=== PATIENT | male | born 1970 | race Caucasian/White ===

== ENCOUNTER 2017-10-24 22:00 | Emergency (ER) | payer OTHER, MEDICAID, SELFPAY ==
[2017-10-24 22:10] VITALS: BP 134/98; PULSE 100; RESP 18; TEMP 37.3; O2SAT 100; BMI 38.3
--- NOTE | 2017-10-24 22:24 | ED_ITS ---
HPI - Back Pain/Injury General Chief Complaint: Back Pain/Injury Stated Complaint: RT SIDED RIB PAIN FOR A WEEK Time Seen by Provider: 10/24/17 22:23 Source: patient Mode of arrival: ambulatory Limitations: no limitations History of Present Illness HPI Narrative: Patient is a 47-year-old male presents with right thoracic pain for about 1 week. He says he was sitting in the recliner trying to get up when it started. No fall or injury. It hurts intermittently but mostly when he moves. Not currently hurting now. Last night it was quite bad. He has no all right upper quadrant pain or shoulder pain. He is not taking and any medicine for it. Related Data Home Medications Medication Instructions Recorded Confirmed linagliptin [Tradjenta] 5 mg PO #0 01/29/17 glimepiride [Amaryl] 1 tab PO QDAY #0 06/07/17 Previous Rx's Medication Instructions Recorded Glucose: Home Monitoring Kit 0 kit #1 ea 12/15/15 [TRUE METRIX TEST STR] 1 str Q DAY #100 str 03/17/16 [TRUE METRIX TEST STR] 1 str QDAY #100 01/29/17 metformin 1,000 mg PO BIDCC #60 tab 01/29/17 hydrocodone 5 mg-acetaminophen 325 1 tab PO BIDP PRN #60 tab 10/20/17 mg tablet diazepam [Valium] 5 mg PO Q12HR PRN #10 tab 10/24/17 Allergies Allergy/AdvReac Type Severity Reaction Status Date / Time No Known Drug Allergies Allergy Verified 10/24/17 22:34 Review of Systems Constitutional Denies chills, Denies fever(s), Denies lethargy and Denies weakness Cardiovascular Denies chest pain, Denies irregular heart rhythm, Denies lightheadedness, Denies palpitations, Denies dyspnea, Denies dyspnea on exertion and Denies orthopnea Respiratory Denies cough, Denies dyspnea, Denies dyspnea on exertion and Denies wheezing Musculoskeletal Reports system reviewed and no additional complaints, except as docu and Reports as per HPI Neurologic Denies weakness Endocrine Denies palpitations Allergic/Immunologic Denies wheezing PFSH Family History Brother Age: 49 Diabetes mellitus Father Essential hypertension Social History Smoking Status: Never smoker Exam Initial Vital Signs Initial Vital Signs: Vital Signs Temperature 99.2 F 10/24/17 22:10 Pulse Rate 100 H 10/24/17 22:10 Respiratory Rate 18 10/24/17 22:10 Blood Pressure 134/98 H 10/24/17 22:10 Pulse Oximetry 100 10/24/17 22:10 GENERAL: Well-appearing, well-nourished and in no acute distress. CARDIOVASCULAR: peripheral pulses in tact, cap refill <2 sec RESPIRATORY: No respiratory distress, speaks in full sentences without difficulty ABDOMEN: Soft, nontender, no guarding or rebound no right upper quadrant pain, negative Boone sign BACK: Right thoracic pain at about she 6 in 7 muscle spasm is felt over the scapular area. Pain is reproducible with palpation. Definitely worse with movement. EXTREMITIES: Normal range of motion, no clubbing or edema. Neurovascularly intact NEUROLOGICAL: Cranial nerves II through XII grossly intact. Normal gait and speech. SKIN: Warm, dry, no petechiae, no rashes or lesions. Course Orders Ordered: Discontinued Medications Diazepam (Valium) 5 mg PO NOW ONE Stop: 10/24/17 22:33 Last Admin: 10/24/17 22:43 Dose: 5 mg Ketorolac Tromethamine (Toradol) 60 mg IM NOW ONE Stop: 10/24/17 22:33 Last Admin: 10/24/17 22:43 Dose: 60 mg Vital Signs - 8 hr 10/24/17 22:10 10/24/17 22:50 10/24/17 23:05 Temperature 99.2 F 99.2 F Pulse Rate 100 H 100 H 107 H Respiratory Rate 18 18 20 Blood Pressure 134/98 H 134/98 H 122/88 H Pulse Oximetry 100 100 93 Discharge Plan Departure Patient Disposition: Home, Self-Care Clinical Impression: Acute right-sided thoracic back pain Discharge Date/Time: 10/24/17 23:05 Interventions: ED Discharge Assessment Last Done: 10/24/17 23:05 Instructions: DI for Thoracic Back Pain Activity Restrictions/Additional Instructions: *You have been diagnosed with thoracic back pain *What to do: Heating pad, 30 min at a time, increase activity as tolerated *Continue to take medications as directed -Valium every 12 hr if needed for severe muscle spasm -ibuprofen 600 mg every 6-8 hours if needed for pain *Follow up with your primary care provider in 2-3 days [and follow up with ortho , urology etc] *Return to ER if you should have [such as] [or] any new, worsening or concerning symptoms Prescriptions: New diazepam [Valium] 5 mg tablet 5 mg PO Q12HR PRN (Reason: muscle spasm) Qty: 10 RF: 0 No Action Glucose: Home Monitoring Kit Qty: 1 RF: 0 [TRUE METRIX TEST STR] 1 str Q DAY Qty: 100 RF: 2 linagliptin [Tradjenta] 5 MG tablet 5 mg PO Qty: 0 RF: 0 metformin 1,000 MG tablet 1,000 mg PO BIDCC Qty: 60 RF: 11 [TRUE METRIX TEST STR] 1 str QDAY Qty: 100 RF: 2 glimepiride [Amaryl] 4 MG tablet 1 tab PO QDAY Qty: 0 RF: 0 hydrocodone-acetaminophen 5-325 mg tablet 1 tab PO BIDP PRN (Reason: pain) Qty: 60 RF: 0 Referrals: Barak Donahue MD [Primary Care Provider] -
[2017-10-24] MEDS: KETOROLAC 60 MG/2 ML VIAL IM (22:43)
[2017-10-24] MEDS: diazePAM 5 MG TABLET PO (22:43)
[2017-10-24 22:50] VITALS: BP 134/98; PULSE 100; RESP 18; TEMP 37.3; O2SAT 100; BMI 38.3
[2017-10-24 23:05] VITALS: BP 122/88; PULSE 107; RESP 20; O2SAT 93
== END 2017-10-24 23:05 | disposition home or self-care (01) ==
PROVIDERS: Emergency Provider Emergency Medicine; Family Provider Family Medicine; PCP Family Medicine
DX: M54.6 Pain in thoracic spine (principal)
CPT/HCPCS: 96372; 99282; 99283; J1885

== ENCOUNTER → 2017-11-08 09:44 | Outpatient (CLI) | payer OTHER, MEDICAID, SELFPAY ==
--- NOTE | 2017-11-08 09:46 | DI.RAD.S_ITS ---
PROCEDURE: XR THORACIC SPINE 3V INDICATIONS: right lower rib pain and thoracic back pain no trauma TECHNIQUE: 2 views of the thoracic spine were acquired. COMPARISON: [facility], CT, ABDOMEN/PELVIS WITH CONTRAST, 03/16/2016, 7:02. [facility], RG, XR CXR 2 VIEW, 12/17/2003, 10:49. FINDINGS: Bones: No fractures or dislocations but there is a slight degree of convex leftward scoliosis centered at T10-T11. The 12th rib from prior CT scanning is rudimentary but present. No suspicious bony lesions. 12 pairs of ribs are noted, and appear intact where visualized. Soft tissues: No paravertebral stripe thickening. IMPRESSION: Source of chest pain is not identified. Note is made of a slight degree of convex leftward scoliosis centered at the lower third of the thoracic spine. No compression fracture seen. Minimal degenerative disc disease. Dictated by: Rufino Mondragon M.D. on 11/08/2017 at 10:26 Approved by: Rufino Mondragon M.D. on 11/08/2017 at 10:30
--- NOTE | 2017-11-08 09:46 | DI.RAD.S_ITS ---
PROCEDURE: XR RIBS RT MIN 3V W CXR 1V INDICATIONS: right lower rib pain no trauma TECHNIQUE: 3 views of the right ribs were acquired, along with a single view chest. COMPARISON: [facility], CT, ABDOMEN/PELVIS WITH CONTRAST, 03/16/2016, 7:02. [facility], CR, XR THORACIC SPINE 3V, 11/08/2017, 9:24. FINDINGS: Surgical changes and devices: None. Bones and chest wall: No fractures or dislocations. No suspicious bony lesions. Overlying soft tissues appear unremarkable. Lungs and pleura: No pleural effusions or pneumothorax. Lungs appear clear. Mediastinum: Mediastinal contours appear normal. Heart size is normal. IMPRESSION: No osteolytic or blastic lesion seen involving the ribs. Rudimentary 12th rib, also documented by prior CT scanning. Followup by nuclear medicine bone scan may be warranted depending on clinical status of the patient. Dictated by: Rufino Mondragon M.D. on 11/08/2017 at 10:30 Approved by: Rufino Mondragon M.D. on 11/08/2017 at 10:34
== END ==
PROVIDERS: Family Provider Family Medicine; PCP Family Medicine; Visit Provider Family Medicine
DX: R07.81 Pleurodynia (principal); M54.6 Pain in thoracic spine
CPT/HCPCS: 71101; 72072

== ENCOUNTER → 2017-11-16 08:39 | Outpatient (CLI) | payer OTHER, MEDICAID, SELFPAY ==
--- NOTE | 2017-11-16 08:40 | DI.US.S_ITS ---
PROCEDURE: US ABDOMEN COMPLETE INDICATIONS: PAIN; HISTORY HERNIA REPAIR TECHNIQUE: Real-time scanning was performed of the abdominal and retroperitoneal organs, with image documentation. COMPARISON: [facility], US, ABDOMEN LIMITED, 12/07/2015, 13:41. [facility], CT, ABDOMEN/PELVIS WITH CONTRAST, 01/19/2015, 5:56. FINDINGS: Liver: The liver is mildly enlarged at 20.9 cm in length and demonstrates heterogeneous increased echogenicity when compared to the right kidney. This does result in difficulty evaluating the liver for deep liver lesions. No large liver lesions are evident. Gallbladder: The gallbladder is normal in size without gallbladder wall thickening, pericholecystic fluid, or cholelithiasis. Biliary ducts: Intrahepatic bile ducts are non-dilated. Extrahepatic bile duct caliber measures 6 mm. Normal is 6-7 mm or less in diameter, or 10 mm or less post-cholecystectomy. Pancreas: Visualized portions of the pancreas are sonographically normal. Spleen: Spleen is normal in size and homogeneous in echotexture. Kidneys: Kidneys are normal in size and echotexture. Right kidney measures 11.4 cm long; left kidney measures 12.8 cm long. No hydronephrosis or nephrolithiasis. No solid masses. Aorta: Visualized aorta is normal in caliber at less than 3 cm. Iliacs: Proximal common iliac arteries are normal in caliber at less than 2.5 cm. IVC: Intrahepatic inferior vena cava is patent. Miscellaneous: No free abdominal fluid. IMPRESSION: 1. Hepatomegaly with probable hepatic steatosis. Clinical correlation to exclude other chronic liver disease. 2. No cholelithiasis or evidence of acute cholecystitis. 3. Unremarkable kidneys. Dictated by: Omari Griffin M.D. on 11/16/2017 at 10:48 Approved by: Omari Griffin M.D. on 11/16/2017 at 10:50
== END ==
PROVIDERS: Family Provider Family Medicine; PCP Family Medicine; Visit Provider Family Medicine
DX: R10.31 Right lower quadrant pain (principal); G89.29 Other chronic pain; R16.0 Hepatomegaly, not elsewhere classified
CPT/HCPCS: 76700

== ENCOUNTER → 2018-01-02 11:41 | Outpatient (CLI) | payer OTHER, MEDICAID, SELFPAY ==
--- NOTE | 2018-01-02 | DI.RAD.S_ITS ---
PROCEDURE: XR PELVIS 1-2V INDICATIONS: CHRONIC RIGHT GROIN PAIN TECHNIQUE: Single frontal view(s) of the pelvis acquired. COMPARISON: None. FINDINGS: Bones: No fractures or dislocations. No suspicious bony lesions. Soft tissues: Visualized bowel gas pattern is normal. No suspicious soft tissue calcifications. IMPRESSION: No acute fractures or dislocations. If there is clinical concern for radiographically occult fracture then a noncontrast MRI would be recommended for further evaluation. Dictated by: Javier Peterson M.D. on 01/02/2018 at 13:07 Approved by: Javier Peterson M.D. on 01/02/2018 at 13:08
== END ==
PROVIDERS: Family Provider Family Medicine; PCP Family Medicine; Visit Provider Surgery
DX: R10.2 Pelvic and perineal pain (principal)
CPT/HCPCS: 72170

== ENCOUNTER 2018-03-17 17:53 | Emergency (ER) | payer OTHER, MEDICAID, SELFPAY ==
[2018-03-17 18:01] VITALS: BP 148/111; PULSE 109; RESP 18; TEMP 36.1; O2SAT 96
--- NOTE | 2018-03-17 18:18 | ED.EXTPRO ---
HPI - Extremity Problem General Chief complaint: Extremity Problem,Nontraumatic Stated complaint: Elbow and arm pain both arms Time Seen by Provider: 03/17/18 18:12 Related Data Home Medications Medication Instructions Recorded Confirmed linagliptin [Tradjenta] 5 mg PO #0 01/29/17 01/02/18 glimepiride [Amaryl] 1 tab PO QDAY #0 06/07/17 01/02/18 Previous Rx's Medication Instructions Recorded Glucose: Home Monitoring Kit 0 kit #1 ea 12/15/15 [TRUE METRIX TEST STR] 1 str Q DAY #100 str 03/17/16 [TRUE METRIX TEST STR] See Label Instructions SUBCUT QDAY 02/15/18 #100 strip hydrocodone 7.5 mg-acetaminophen 1 tab PO Q6H PRN #120 tab 03/04/18 325 mg tablet metformin 1,000 mg tablet 1,000 mg PO BIDCC #60 tab 03/06/18 Allergies Allergy/AdvReac Type Severity Reaction Status Date / Time No Known Drug Allergies Allergy Verified 03/17/18 18:04 [facility] Surgical History Hx of hernia repair (Resolved 2005) Social History Smoking Status: Never smoker Exam Initial Vital Signs Initial Vital Signs: Vital Signs Temperature 97.0 F L 03/17/18 18:01 Pulse Rate 109 H 03/17/18 18:01 Respiratory Rate 18 03/17/18 18:01 Blood Pressure 148/111 H 03/17/18 18:01 Pulse Oximetry 96 03/17/18 18:01 Course Orders Ordered: ED Orders 03/17/18 18:18 XR cervical spine 2V or 3V Stat Vital Signs - 8 hr 03/17/18 18:01 Temperature 97.0 F L Pulse Rate 109 H Respiratory Rate 18 Blood Pressure 148/111 H Pulse Oximetry 96 Discharge Plan Departure Clinical Impression: Bilateral elbow joint pain Instructions: DI for Elbow Pain Activity Restrictions/Additional Instructions: Follow-up with your primary care appointment on March 27. Continue home medications as prescribed. return to the emergency department for fevers greater than 100.4, swelling of the elbows, redness, loss of sensation or decreased strength such is dropping objects or inability to pick them up, color changes such as pallor or blueness of the extremity or other new or concerning symptoms. Prescriptions: No Action Glucose: Home Monitoring Kit Qty: 1 RF: 0 [TRUE METRIX TEST STR] 1 str Q DAY Qty: 100 RF: 2 linagliptin [Tradjenta] 5 MG tablet 5 mg PO Qty: 0 RF: 0 glimepiride [Amaryl] 4 MG tablet 1 tab PO QDAY Qty: 0 RF: 0 [TRUE METRIX TEST STR] See Label Instructions SUBCUT QDAY Qty: 100 RF: 2 hydrocodone-acetaminophen 7.5-325 mg tablet 1 tab PO Q6H PRN (Reason: pain) Qty: 120 RF: 0 metformin 1,000 mg tablet 1,000 mg PO BIDCC Qty: 60 RF: 11
--- NOTE | 2018-03-17 18:19 | ED.EXTPRO ---
HPI - Extremity Problem General Chief complaint: Extremity Problem,Nontraumatic Stated complaint: Elbow and arm pain both arms Time Seen by Provider: 03/17/18 18:12 Source: patient and family (mother) Mode of arrival: ambulatory Limitations: no limitations History of Present Illness HPI Narrative: This is a 47-year-old male comes to the emergency department with complaint of bilateral elbow pain. Patient states he had similar symptoms in his right elbow couple months ago and was put on antibiotics which seemed to help. He states this is both elbows, most specifically the elbows although he does have some pain in his neck, he does have some pain sometimes radiates down his arm from the shoulder, and he has tingling in the left hand and sometimes numbness in the right. Patient states he has not had any trauma. He is not do any kind of work or repetitive activity. He has not had any fevers, no skin changes, no redness. is having any weakness. He is not having any issues with his other joints, he does not have any history of autoimmune issues nor does his family. He does have diabetes. Does take narcotics for chronic pain. But not for this specifically. He states his regular medication which is hydrocodone 7.5 has not been very helpful. Movement does seem to sometimes make it worse. Related Data Home Medications Medication Instructions Recorded Confirmed linagliptin [Tradjenta] 5 mg PO #0 01/29/17 01/02/18 glimepiride [Amaryl] 1 tab PO QDAY #0 06/07/17 01/02/18 Previous Rx's Medication Instructions Recorded Glucose: Home Monitoring Kit 0 kit #1 ea 12/15/15 [TRUE METRIX TEST STR] 1 str Q DAY #100 str 03/17/16 [TRUE METRIX TEST STR] See Label Instructions SUBCUT QDAY 02/15/18 #100 strip hydrocodone 7.5 mg-acetaminophen 1 tab PO Q6H PRN #120 tab 03/04/18 325 mg tablet metformin 1,000 mg tablet 1,000 mg PO BIDCC #60 tab 03/06/18 prednisone 10 mg PO DAILY #13 tab 03/17/18 Allergies Allergy/AdvReac Type Severity Reaction Status Date / Time No Known Drug Allergies Allergy Verified 03/17/18 18:04 Review of Systems Review of Systems All systems reviewed & are unremarkable except as noted in HPI and below Constitutional Denies chills and Denies fever(s) (Tm 99F) ENT Ears, Nose, Mouth, and Throat: Reports neck pain Cardiovascular Denies chest pain and Denies dyspnea Respiratory Denies dyspnea Gastrointestinal Gastrointestinal: Denies abdominal pain, Denies diarrhea, Reports nausea (when pain is bad with driving) and Reports vomiting (when pain is bad with driving) Musculoskeletal Reports back pain (chronic low back), Denies myalgias, Reports arthralgias (bilateral elbows), Denies joint swelling, Denies limited range of motion, Denies muscle weakness, Reports neck pain, Reports numbness and Reports tingling Integumentary/Breasts Denies rash and Denies wounds Neurologic Denies burning sensations, Denies focal weakness, Reports numbness and Reports tingling [facility] Surgical History Hx of hernia repair (Resolved 2005) Social History Smoking Status: Never smoker Exam Narrative Exam Narrative: GENERAL: Alert and oriented x three, Obese, well-appearing male in mild distress. HEENT: Head normocephalic, atraumatic, EOMI, pupils reactive, face symmetric, moist mucous membranes NECK: Supple, full range of motion CARDIOVASCULAR: Regular rate and rhythm without murmurs, rubs or gallops. RESPIRATORY: Breath sounds equal bilaterally, no wheezes rales or rhonchi. ABDOMEN: Soft, nontender. Normoactive bowel sounds all 4 quadrants. No guarding or rebound, rigidity, no mass BACK: No cervical, thoracic or lumbar vertebral point tenderness. Negative Spurling's. Patient has normal range of motion. Patient's gait is normal. Muscle strength is 5/5 in lower extremities, DTRs are 2/4 and lower extremities. 2+ radial pulse bilaterally. Sensation to touchis intact in the upper extremities. EXTREMITIES: Normal range of motion of both upper extremities, Patient does not have any bony tenderness. There is no swelling or erythema of the elbows. Patient has 5/5 muscle strength in bilateral upper extremities with shuttle final inspector equal bilaterally. no clubbing or edema. Neurovascularly intact NEUROLOGICAL: Cranial nerves II through XII grossly intact. Moving all extremities SKIN: Warm, dry, no petechiae, no rashes or lesions. Initial Vital Signs Initial Vital Signs: Vital Signs Temperature 97.0 F L 03/17/18 18:01 Pulse Rate 109 H 03/17/18 18:01 Respiratory Rate 18 03/17/18 18:01 Blood Pressure 148/111 H 03/17/18 18:01 Pulse Oximetry 96 03/17/18 18:01 Course Orders Ordered: ED Orders 03/17/18 18:18 XR cervical spine 2V or 3V Stat Vital Signs - 8 hr 03/17/18 18:01 03/17/18 19:20 Temperature 97.0 F L 99.0 F Pulse Rate 109 H 102 H Respiratory Rate 18 18 Blood Pressure 148/111 H 138/99 H Pulse Oximetry 96 96 MDM - Extremity (Nontraumatic) Imaging Data cspine xray: Radiologist's impression: [address] [address] XRay Report Signed Patient: José Starr TMR#: [id number] : 1970Acct:[id number] Age/Sex: 47 / MDate of Service: 03/17/18 Loc: ED Accession Number: [id number] Procedure: XR cervical spine 2V or 3V Ordering Provider: Debora Dumont D.O. PROCEDURE: XR CERVICAL SPINE 2V OR 3V INDICATIONS: bilateral elbow pain, neck pain, tingling hands TECHNIQUE: 3 view(s) of the cervical spine were acquired. COMPARISON: None. FINDINGS: Bones: No fractures or dislocations to the C7 level. The lateral masses of C1 appear intact on the odontoid view. No suspicious bony lesions. There are moderate multilevel degenerative changes of the cervical spine. Bilateral cervical ribs are noted at C7. Soft tissues: No prevertebral soft tissue swelling. IMPRESSION: #1. Moderate multilevel degenerative changes of the cervical spine. #2. Bilateral C7 cervical ribs noted, which can contribute to neck pain in the appropriate clinical setting. Dictated by: Joe Lewis M.D. on 03/17/2018 at 19:45 Approved by: Joe Lewis M.D. on 03/17/2018 at 19:4 [facility] Narrative Medical decision making narrative: patient does not appear to have any signs of bursitis or infection. He sounds like he is having polyarthralgia but bilaterally in his elbows. He is denying any repetitive use that would cause such symptoms. Patient does have diabetes and he could be having some neuropathy. He has after review of his chart a history of some tendinopathy in the elbow. Patient also may have some radiculopathy and an x-ray of his neck was ordered. X-ray shows osteophytes Um and changes for possible causes for radiculopathy. He does not any clear tendinopathy with palpation or exam. Discussed trying a prednisone taper to see if this improves his symptoms he does remember if it was helpful last time. Plan from to follow up with his primary care physician in next 10 days. He can continue his hydrocodone, he does come times take Aleve for pain and discuss he can take that as well. Discharge Plan Departure Patient Disposition: Home Clinical Impression: Bilateral elbow joint pain Discharge Date/Time: 03/17/18 19:21 Interventions: ED Discharge Assessment Last Done: 03/17/18 19:20 Instructions: DI for Elbow Pain Activity Restrictions/Additional Instructions: Follow-up with your primary care appointment on March 27. Continue home medications as prescribed. You may take prednisone as prescribed, this medication can elevate your blood sugars so continue to monitor these closely. return to the emergency department for fevers greater than 100.4, swelling of the elbows, redness, loss of sensation or decreased strength such is dropping objects or inability to pick them up, color changes such as pallor or blueness of the extremity or other new or concerning symptoms. Prescriptions: New prednisone 10 mg tablet 10 mg PO DAILY Qty: 13 RF: 0 No Action Glucose: Home Monitoring Kit Qty: 1 RF: 0 [TRUE METRIX TEST STR] 1 str Q DAY Qty: 100 RF: 2 linagliptin [Tradjenta] 5 MG tablet 5 mg PO Qty: 0 RF: 0 glimepiride [Amaryl] 4 MG tablet 1 tab PO QDAY Qty: 0 RF: 0 [TRUE METRIX TEST STR] See Label Instructions SUBCUT QDAY Qty: 100 RF: 2 hydrocodone-acetaminophen 7.5-325 mg tablet 1 tab PO Q6H PRN (Reason: pain) Qty: 120 RF: 0 metformin 1,000 mg tablet 1,000 mg PO BIDCC Qty: 60 RF: 11
--- NOTE | 2018-03-17 18:26 | ED_ITS ---
HPI - Extremity Problem General Chief complaint: Extremity Problem,Nontraumatic Stated complaint: Elbow and arm pain both arms Time Seen by Provider: 03/17/18 18:12 Source: patient and family (mother) Mode of arrival: ambulatory Limitations: no limitations History of Present Illness HPI Narrative: This is a 47-year-old male comes to the emergency department with complaint of bilateral elbow pain. Patient states he had similar symptoms in his right elbow couple months ago and was put on antibiotics which seemed to help. He states this is both elbows, most specifically the elbows although he does have some pain in his neck, he does have some pain sometimes radiates down his arm from the shoulder, and he has tingling in the left hand and sometimes numbness in the right. Patient states he has not had any trauma. He is not do any kind of work or repetitive activity. He has not had any fevers, no skin changes, no redness. is having any weakness. He is not having any issues with his other joints, he does not have any history of autoimmune issues nor does his family. He does have diabetes. Does take narcotics for chronic pain. But not for this specifically. He states his regular medication which is hydrocodone 7.5 has not been very helpful. Movement does seem to sometimes make it worse. Related Data Home Medications Medication Instructions Recorded Confirmed linagliptin [Tradjenta] 5 mg PO #0 01/29/17 01/02/18 glimepiride [Amaryl] 1 tab PO QDAY #0 06/07/17 01/02/18 Previous Rx's Medication Instructions Recorded Glucose: Home Monitoring Kit 0 kit #1 ea 12/15/15 [TRUE METRIX TEST STR] 1 str Q DAY #100 str 03/17/16 [TRUE METRIX TEST STR] See Label Instructions SUBCUT QDAY 02/15/18 #100 strip hydrocodone 7.5 mg-acetaminophen 1 tab PO Q6H PRN #120 tab 03/04/18 325 mg tablet metformin 1,000 mg tablet 1,000 mg PO BIDCC #60 tab 03/06/18 prednisone 10 mg PO DAILY #13 tab 03/17/18 Allergies Allergy/AdvReac Type Severity Reaction Status Date / Time No Known Drug Allergies Allergy Verified 03/17/18 18:04 Review of Systems Review of Systems All systems reviewed & are unremarkable except as noted in HPI and below Constitutional Denies chills and Denies fever(s) (Tm 99F) ENT Ears, Nose, Mouth, and Throat: Reports neck pain Cardiovascular Denies chest pain and Denies dyspnea Respiratory Denies dyspnea Gastrointestinal Gastrointestinal: Denies abdominal pain, Denies diarrhea, Reports nausea (when pain is bad with driving) and Reports vomiting (when pain is bad with driving) Musculoskeletal Reports back pain (chronic low back), Denies myalgias, Reports arthralgias ( bilateral elbows), Denies joint swelling, Denies limited range of motion, Denies muscle weakness, Reports neck pain, Reports numbness and Reports tingling Integumentary/Breasts Denies rash and Denies wounds Neurologic Denies burning sensations, Denies focal weakness, Reports numbness and Reports tingling [facility] Surgical History Hx of hernia repair (Resolved 2005) Social History Smoking Status: Never smoker Exam Narrative Exam Narrative: GENERAL: Alert and oriented x three, Obese, well-appearing male in mild distress. HEENT: Head normocephalic, atraumatic, EOMI, pupils reactive, face symmetric, moist mucous membranes NECK: Supple, full range of motion CARDIOVASCULAR: Regular rate and rhythm without murmurs, rubs or gallops. RESPIRATORY: Breath sounds equal bilaterally, no wheezes rales or rhonchi. ABDOMEN: Soft, nontender. Normoactive bowel sounds all 4 quadrants. No guarding or rebound, rigidity, no mass BACK: No cervical, thoracic or lumbar vertebral point tenderness. Negative Spurling's. Patient has normal range of motion. Patient's gait is normal. Muscle strength is 5/5 in lower extremities, DTRs are 2/4 and lower extremities. 2+ radial pulse bilaterally. Sensation to touchis intact in the upper extremities. EXTREMITIES: Normal range of motion of both upper extremities, Patient does not have any bony tenderness. There is no swelling or erythema of the elbows. Patient has 5/5 muscle strength in bilateral upper extremities with contact center associate equal bilaterally. no clubbing or edema. Neurovascularly intact NEUROLOGICAL: Cranial nerves II through XII grossly intact. Moving all extremities SKIN: Warm, dry, no petechiae, no rashes or lesions. Initial Vital Signs Initial Vital Signs: Vital Signs Temperature 97.0 F L 03/17/18 18:01 Pulse Rate 109 H 03/17/18 18:01 Respiratory Rate 18 03/17/18 18:01 Blood Pressure 148/111 H 03/17/18 18:01 Pulse Oximetry 96 03/17/18 18:01 Course Orders Ordered: ED Orders 03/17/18 18:18 XR cervical spine 2V or 3V Stat Vital Signs - 8 hr 03/17/18 18:01 03/17/18 19:20 Temperature 97.0 F L 99.0 F Pulse Rate 109 H 102 H Respiratory Rate 18 18 Blood Pressure 148/111 H 138/99 H Pulse Oximetry 96 96 MDM - Extremity (Nontraumatic) Imaging Data cspine xray: Radiologist's impression: [address] [address] XRay Report Signed Patient: José Starr TMR#: [id number] : 1970Acct:[id number] Age/Sex: 47 / MDate of Service: 03/17/18 Loc: ED Accession Number: [id number] Procedure: XR cervical spine 2V or 3V Ordering Provider: Debora Dumont D.O. PROCEDURE: XR CERVICAL SPINE 2V OR 3V INDICATIONS: bilateral elbow pain, neck pain, tingling hands TECHNIQUE: 3 view(s) of the cervical spine were acquired. COMPARISON: None. FINDINGS: Bones: No fractures or dislocations to the C7 level. The lateral masses of C1 appear intact on the odontoid view. No suspicious bony lesions. There are moderate multilevel degenerative changes of the cervical spine. Bilateral cervical ribs are noted at C7. Soft tissues: No prevertebral soft tissue swelling. IMPRESSION: #1. Moderate multilevel degenerative changes of the cervical spine. #2. Bilateral C7 cervical ribs noted, which can contribute to neck pain in the appropriate clinical setting. Dictated by: Joe Lewis M.D. on 03/17/2018 at 19:45 Approved by: Joe Lewis M.D. on 03/17/2018 at 19:4 [facility] Narrative Medical decision making narrative: patient does not appear to have any signs of bursitis or infection. He sounds like he is having polyarthralgia but bilaterally in his elbows. He is denying any repetitive use that would cause such symptoms. Patient does have diabetes and he could be having some neuropathy. He has after review of his chart a history of some tendinopathy in the elbow. Patient also may have some radiculopathy and an x-ray of his neck was ordered. X-ray shows osteophytes Um and changes for possible causes for radiculopathy. He does not any clear tendinopathy with palpation or exam. Discussed trying a prednisone taper to see if this improves his symptoms he does remember if it was helpful last time. Plan from to follow up with his primary care physician in next 10 days. He can continue his hydrocodone, he does come times take Aleve for pain and discuss he can take that as well. Discharge Plan Departure Patient Disposition: Home Clinical Impression: Bilateral elbow joint pain Discharge Date/Time: 03/17/18 19:21 Interventions: ED Discharge Assessment Last Done: 03/17/18 19:20 Instructions: DI for Elbow Pain Activity Restrictions/Additional Instructions: Follow-up with your primary care appointment on March 27. Continue home medications as prescribed. You may take prednisone as prescribed, this medication can elevate your blood sugars so continue to monitor these closely. return to the emergency department for fevers greater than 100.4, swelling of the elbows, redness, loss of sensation or decreased strength such is dropping objects or inability to pick them up, color changes such as pallor or blueness of the extremity or other new or concerning symptoms. Prescriptions: New prednisone 10 mg tablet 10 mg PO DAILY Qty: 13 RF: 0 No Action Glucose: Home Monitoring Kit Qty: 1 RF: 0 [TRUE METRIX TEST STR] 1 str Q DAY Qty: 100 RF: 2 linagliptin [Tradjenta] 5 MG tablet 5 mg PO Qty: 0 RF: 0 glimepiride [Amaryl] 4 MG tablet 1 tab PO QDAY Qty: 0 RF: 0 [TRUE METRIX TEST STR] See Label Instructions SUBCUT QDAY Qty: 100 RF: 2 hydrocodone-acetaminophen 7.5-325 mg tablet 1 tab PO Q6H PRN (Reason: pain) Qty: 120 RF: 0 metformin 1,000 mg tablet 1,000 mg PO BIDCC Qty: 60 RF: 11
[2018-03-17 19:20] VITALS: BP 138/99; PULSE 102; RESP 18; TEMP 37.2; O2SAT 96
== END 2018-03-17 19:21 | disposition home or self-care (01) ==
PROVIDERS: Emergency Provider Emergency Medicine; Family Provider Family Medicine; PCP Family Medicine
DX: M25.521 Pain in right elbow (principal); M25.522 Pain in left elbow
CPT/HCPCS: 72040; 99282; 99283

== ENCOUNTER → 2018-09-16 17:14 | Outpatient (CLI) | payer OTHER, MEDICAID, SELFPAY ==
--- NOTE | 2018-09-16 | DI.MRI.S_ITS ---
PROCEDURE: MR THORACIC SPINE WO CON INDICATIONS: NECK AND BILATERAL ARM PAIN TECHNIQUE: Noncontrast sagittal T1 spine echo and T2 fast spin echo, sagittal STIR, axial T1 and T2 fast spin echo through the thoracic spine. COMPARISON: None. FINDINGS: Image quality: Excellent. Alignment and Curvature: There is normal bony alignment. There is straightening of normal thoracic spine curvature. Bones: Marrow is of normal overall signal. No acute vertebral body compression fractures. Multiple small lower thoracic spine Schmorl's nodes. Spinal Cord: Visualized spinal cord is normal in size and signal. Paraspinous Soft Tissues: No paravertebral masses. Miscellaneous: Loss of signal noted in the T5-T6 disc. Small central T5-T6 disc protrusion. Moderate bilateral T9-T10 facet hypertrophy. Mild T9-T10 central canal narrowing.. Mild bilateral T9-T10 and T10-T11 neural foraminal narrowing. No neural impingement. IMPRESSION: 1. Mild T5-T6 degenerative disc disease. 2. Mild T9-T10 central canal narrowing. 3. Mild bilateral T9 and T10 and T10-T11 neural foraminal narrowing. 4. No neural impingement. 5. No vertebral body compression fractures. Dictated by: Sindhu Watt MD, PhD on 09/17/2018 at 9:18 Approved by: Sindhu Watt MD, PhD on 09/17/2018 at 9:23
--- NOTE | 2018-09-16 | DI.MRI.S_ITS ---
PROCEDURE: MR CERVICAL SPINE WO CON INDICATIONS: NECK PAIN TECHNIQUE: Noncontrast sagittal T1 spin echo and T2 fast spin echo, sagittal STIR, foraminal oblique sagittal T2 fast spin echo, and axial gradient echo or T2 fast spin echo through the cervical spine. COMPARISON: [facility], CR, XR CERVICAL SPINE 2V OR 3V, 03/17/2018, 18:25. FINDINGS: Image quality: Excellent. Alignment and Curvature: There is normal bony alignment. There is reversal of normal cervical spine curvature. Bone Marrow: Minimal reactive endplate changes noted adjacent to the C4-C5, C5-C6 and C6-C7 discs. Spinal Cord: Visualized spinal cord has normal size and signal. No cerebellar tonsillar herniation. Paraspinous Soft Tissues: No paravertebral masses. Prevertebral soft tissues are normal in thickness. C2-C3: Loss of disc signal. Small central disc protrusion. No central stenosis. No neural foraminal narrowing. No neural impingement. C3-C4: Loss of the signal. Mild, diffuse disc bulge. Mild narrowing of the central canal. Mild left facet hypertrophy. Mild left neural foraminal narrowing. No neural impingement. C4-C5: Loss of disc signal. Mild, diffuse disc bulge. Small central disc protrusion. Mild to moderate narrowing of the central canal. No neural foraminal narrowing. No neural impingement. C5-C6: Loss of disc signal and height. Moderate, diffuse disc bulge. Mild to moderate narrowing of the central canal. Mild to moderate bilateral neural foraminal narrowing. No neural impingement. neural foraminal narrowing C6-C7: Loss of disc signal and height. Moderate, diffuse disc bulge. Mild to moderate narrowing of the central canal. Mild bilateral neural foraminal narrowing. No neural impingement. C7-T1: Normal appearance. IMPRESSION: 1. Multilevel degenerative disease. 2. Mild to moderate C4-C5, C5-C6 and C6-C7 central canal narrowing. Mild C3-C4 central canal narrowing. 3. Mild to moderate bilateral C5-C6 neural foraminal narrowing. Mild bilateral C6-C7 neural foraminal narrowing. Mild left C3-C4 neural foraminal narrowing. 4. No neural impingement. IV reversal of normal cervical spine curvature. Dictated by: Sindhu Watt MD, PhD on 09/17/2018 at 9:09 Approved by: Sindhu Watt MD, PhD on 09/17/2018 at 9:15
== END ==
PROVIDERS: PCP Student in an Organized Health Care Education/Training Program; Visit Provider Student in an Organized Health Care Education/Training Program
DX: M50.31 Other cervical disc degeneration, high cervical region (principal); M48.02 Spinal stenosis, cervical region; M51.34 Other intervertebral disc degeneration, thoracic region; M48.04 Spinal stenosis, thoracic region; M79.602 Pain in left arm; M79.601 Pain in right arm
CPT/HCPCS: 72141; 72146

== ENCOUNTER → 2018-10-09 13:06 | Outpatient (CLI) | payer OTHER, MEDICAID, SELFPAY ==
[2018-10-09 14:35] LABS: Alanine Aminotransferase 29 IU/L (21-72); Aspartate Aminotransferase 19 IU/L (17-59); Cholesterol 189 mg/dL (140-199); HDL Cholesterol 37 mg/dL (40-60); Triglycerides 493 mg/dL (35-150)
[2018-10-09 16:04] LABS: Creatinine Urine Random 124.1 mg/dL
[2018-10-09 16:09] LABS: Microalbumi Creatinin Ratio Ur 148.2 ug/mg CR (<30); Microalbumin Urine Random 18.4 mg/dL (0-1.6)
== END ==
PROVIDERS: PCP Student in an Organized Health Care Education/Training Program; Visit Provider Nurse Practitioner
DX: E11.65 Type 2 diabetes mellitus with hyperglycemia (principal)
CPT/HCPCS: 36415; 80061; 82043; 82570; 84450; 84460

== ENCOUNTER → 2018-10-16 14:53 | Outpatient (CLI) | payer OTHER, MEDICAID, SELFPAY ==
--- NOTE | 2018-10-16 14:55 | DI.CT.S_ITS ---
PROCEDURE: CT ABDOMEN PELVIS WO CON INDICATIONS: RLQ pain TECHNIQUE: Noncontrast 5 mm thick sections acquired from the diaphragms to the symphysis. 5 mm coronal and sagittal reformats were then performed. For radiation dose reduction, the following was used: automated exposure control, adjustment of mA and/or kV according to patient size. COMPARISON: [facility], CT, ABDOMEN/PELVIS WITH CONTRAST, 03/16/2016, 7:02. [facility], CT, ABDOMEN/PELVIS WITH CONTRAST, 01/19/2015, 5:56. [facility], CT, PELVIS WITH CONTRAST, 07/21/2011, 9:57. FINDINGS: Image quality: Excellent. ABDOMEN: Lung bases: Lung bases are clear. Heart size is normal. Solid organs: Liver is mildly prominent in size. Diffuse fatty liver infiltration is noted. Gallbladder is partially collapsed at the time of this study. Pancreas is normal in contours. Spleen is normal in size. No adrenal nodules. A horseshoe kidney can be seen. No stones are seen. No hydronephrosis. Peritoneum and bowel: In this patient with this given history, scrutiny is given to the appendix and the right lower quadrant. A normal-appearing normal caliber appendix is seen, which is filled with gas and a small amount of fluid. No significant right lower quadrant inflammatory changes are seen. Minimal sigmoid diverticulosis is seen. No active diverticulitis. No dilated loops of small bowel are seen. No free air or significant leg can be seen. Nodes and vessels: No retroperitoneal or mesenteric adenopathy by size criteria. Aorta and inferior vena cava are normal in caliber. Miscellaneous: No ventral hernias. PELVIS: Genitourinary: Bladder wall thickness is normal. Miscellaneous: No inguinal hernias or adenopathy. Bones: No suspicious bony lesions. No vertebral body compression fractures. IMPRESSION: Normal appendix. No right lower quadrant inflammatory changes are seen. No stones or hydronephrosis can be seen. Incidental note is made of: Prominent, fatty liver Horseshoe kidney Minimal sigmoid diverticulosis. No diverticulitis. Dictated by: Gary Landry M.D. on 10/16/2018 at 15:07 Approved by: Gary Landry M.D. on 10/16/2018 at 15:10
== END ==
PROVIDERS: PCP Student in an Organized Health Care Education/Training Program; Visit Provider Student in an Organized Health Care Education/Training Program
DX: R10.31 Right lower quadrant pain (principal); Q63.1 Lobulated, fused and horseshoe kidney; K76.0 Fatty (change of) liver, not elsewhere classified
CPT/HCPCS: 74176

== ENCOUNTER → 2018-10-24 11:36 | Outpatient (CLI) | payer OTHER, MEDICAID, SELFPAY | PROVIDERS: PCP Student in an Organized Health Care Education/Training Program; Visit Provider Registered Nurse | DX: M50.90 Cervical disc disorder, unspecified, unspecified cervical region (principal); M54.12 Radiculopathy, cervical region; S24.2XXA Injury of nerve root of thoracic spine, initial encounter; M54.6 Pain in thoracic spine | CPT/HCPCS: 95885; 95886; 95911 ==

== ENCOUNTER → 2018-11-22 09:50 | Outpatient (CLI) | payer OTHER, MEDICAID, SELFPAY ==
[2018-11-22 10:32] LABS: BUN Creatinine Ratio 22.9 (6-22); Blood Urea Nitrogen 16 mg/dL (9-20); Calcium 9.2 mg/dL (8.4-10.2); Carbon Dioxide 32 mmol/L (22-32); Chloride 99 mmol/L (98-107); Estimated Glomerular Filt Rate > 60.0 mL/min (>60); Glucose 166 mg/dL (70-100); HEMOLYSIS < 15 (0-50); Potassium 4.9 mmol/L (3.4-5.1); Sodium 137 mmol/L (137-145)
== END ==
PROVIDERS: PCP Student in an Organized Health Care Education/Training Program; Visit Provider Student in an Organized Health Care Education/Training Program
DX: E11.9 Type 2 diabetes mellitus without complications (principal); Z79.1 Long term (current) use of non-steroidal anti-inflammatories (NSAID)
CPT/HCPCS: 36415; 80048

== ENCOUNTER → 2019-01-21 13:58 | Outpatient (CLI) | payer OTHER, MEDICAID, SELFPAY ==
--- NOTE | 2019-01-21 13:59 | DI.RAD.S_ITS ---
PROCEDURE: XR SHOULDER RT MIN 2V INDICATIONS: Right shoulder pain TECHNIQUE: 3 views of the shoulder were acquired. COMPARISON: None. FINDINGS: Bones: No fractures or dislocations. No suspicious bony lesions. Visualized ribs appear intact. Soft tissues: No suspicious soft tissue calcifications. IMPRESSION: A.c. joint moderate osteoarthritis, no acute trauma found. Dictated by: Rufino Mondragon M.D. on 01/21/2019 at 14:49 Approved by: Rufino Mondragon M.D. on 01/21/2019 at 14:49
== END ==
PROVIDERS: PCP Student in an Organized Health Care Education/Training Program; Visit Provider Student in an Organized Health Care Education/Training Program
DX: M25.511 Pain in right shoulder (principal); M19.011 Primary osteoarthritis, right shoulder; G89.29 Other chronic pain
CPT/HCPCS: 73030

== ENCOUNTER 2019-01-30 15:15 | Outpatient (RCR) | payer OTHER, MEDICAID, SELFPAY ==
--- NOTE | 2018-11-18 14:30 | PT.OPPOC ---
Current Diagnoses Stiffness of unspecified joint, not elsewhere classified (11/18/18) Stiffness of right shoulder, not elsewhere classified (11/18/18) Cervical disc disorder, unspecified, unspecified cervical region (11/18/18) Radiculopathy, cervical region (11/18/18) Muscle weakness (generalized) (11/18/18) Abnormal posture (11/18/18) Provider Visit Care Team Role Provider Type Oswaldo Pickering MD Primary Care Provider Physician Specialty: Internal Medicine Address: [address] [place] [address], [id number] Email: FOREIGN Mora Attending Provider Advanced Central Office Worker Specialty: Pain Management Address: [address] [place] [address], [id number] Email: [email or web address] Plan Of Care PT-OP-T Assessment and Plan Start: 11/18/18 17:47 Freq: Status: Active Protocol: Document 11/18/18 13:45 DCW (Rec: 11/19/18 16:55 DCW [id number]) Physical Therapy Assessment Rehab Potential Rehabilitation Potential Good Evaluation Complexity Number of Personal Factors/Comorbidities 3 or More Number of Body Systems Impaired 4 or More Clinical Presentation at Evaluation Evolving Impairments Impairments Pain Posture ROM Soft Tissue Mobility Strength Tone Goals Four Impairment Restricted shoulder mobility Half-Way Goal (LTG) Pt to improve active shoulder ROM to 100? in both flexion and abduction LTG Duration 01/19/19 Three Impairment Poor positioning of right scapula Half-Way Goal (LTG) Pt's right scapular positioning equal to left scapula LTG Duration 01/19/19 Two Impairment Pt unable to drive due to increased shoulder and neck pain Half-Way Goal (LTG) Pt to drive to [place] [facility] with no increased cervical or shoulder pain LTG Duration 01/19/19 One Impairment Pt does not have an appropriate home exercise program Short Term Goal (STG) Pt to be independent and compliant with an appropriate HEP STG Duration 12/19/18 Assessment Summary Assessment Pt presents with a long- standing, complicated history of cervical pain and radicular right arm pain. Pt has restricted cervical and R shoulder ROM, as well as moderate muscular tone, pain with nearly all shoulder mobility, and x-rays showing cervical degeneration. Nearly all special tests performed on his shoulder were either positive, or pt was unable to position his arm properly due to pain and joint immobility, which makes proper DDx difficult. Most likely diagnosis would be impingement of the supraspinatus due to a decreased subacromial space, potentially caused by the improper positioning of the scapula due to increased muscle tone. Pt's cervical ROM limitations are likely due to his disc degeneration, and pt may benefit from stretching, strengthening of deep neck flexors, and cervical traction . Pt will also probably benefit from general shoulder flexibility training, strengthening, PROM, and pain- control modalities. Physical Therapy Plan Frequency and Duration Frequency of Treatment 2x/Week Duration of Treatment 12 weeks Plan of Care Start Date 11/18/18 Plan of Care End Date 02/17/19 Therapeutic Interventions Therapeutic Interventions Home Exercise Program Joint Mobilizations Manual Therapy Patient/Caregiver Education Self-Care/Home Management Soft Tissue Mobilization Therapeutic Activities Therapeutic Exercises Modalities Cold Pack/Ice Massage Electric Stimulation Hot Packs Ultrasound Next Visit Focus/Plan Next Note Type Treatment Note Next Visit Plan Shoulder strengthening, flexibility/ROM training, Cervical STM, Cervical Traction Plan of Care Dates Plan of Care Start Date 11/18/18 Plan of Care End Date 02/17/19 Please Sign and Return: I have reviewed this Plan of Care and certify that the skilled therapy services above are required to meet the patient?s needs. Physician Signature Date Printed Name and Credentials Clinical Instructor Signature Printed Name and Credentials
--- NOTE | 2018-11-18 14:30 | PT.OIE ---
Current Diagnoses Stiffness of unspecified joint, not elsewhere classified (11/18/18) Stiffness of right shoulder, not elsewhere classified (11/18/18) Cervical disc disorder, unspecified, unspecified cervical region (11/18/18) Radiculopathy, cervical region (11/18/18) Muscle weakness (generalized) (11/18/18) Abnormal posture (11/18/18) Past Medical History (Last Reviewed 10/14/18 @ 21:53 by FOREIGN Mora) Right-sided thoracic back pain (Acute) Other chronic postprocedural pain (Chronic) Neuropathic pain (Chronic) Chronic right shoulder pain (Chronic) Chronic right lower quadrant pain (Chronic 12/10/15) Primary insomnia (Chronic 03/13/16) Uncomplicated opioid dependence (Chronic 03/06/17) Carpal tunnel syndrome (Chronic Unknown) Chronic pain syndrome (Chronic Unknown) Diabetes (Chronic Unknown) Uncomplicated opioid dependence (Chronic) Hx of tendinitis (Resolved ~2016) Shoulder pain (Resolved 2010) Past Surgical History (Last Reviewed 10/14/18 @ 21:53 by FOREIGN Mora) Hx of hernia repair (Resolved 2005) Provider Visit Care Team Role Provider Type Oswaldo Pickering MD Primary Care Provider Physician Specialty: Internal Medicine Address: [address] [place] [address] Email: FOREIGN Mora Attending Provider [employer] Specialty: Pain Management Address: [address] [place] [address] Email: [email or web address] Physical Therapy Initial Evaluation PT-OP-A Visit Information Start: 11/18/18 17:47 Freq: Status: Active Protocol: Document 11/18/18 13:45 DCW (Rec: 11/19/18 16:55 DCW [id number]) Out-Patient Physical Therapy Visit Information Visit Information Visit Type Initial Evaluation Visit Start Time 13:45 Visit Stop Time 14:30 Total Visit Minutes 45 Visit Number 1 Number of EMS DRIVER Visits 0 Evaluation Information Evaluation Date 11/18/18 PT-OP-B Current Condition Start: 11/18/18 17:47 Freq: Status: Active Protocol: Document 11/18/18 13:45 DCW (Rec: 11/19/18 16:55 [facility] [id number]) Current Condition History of Current Condition Onset Date 2 year history Current Complaints Cervical and right shoulder/ arm pain and stiffness History of Current Condition Pt is a 48 year old male presenting with a two year history of neck and right shoulder/arm pain. Pt reports that he has been diagnosed with cervical DJD, however at the moment, his neck is feeling pretty good. He still has increased pain in his right shoulder radiating to his mid-upper arm. Pt reports his cervical pain frequently makes him dizzy, and between that and the arm pain, he has not been driving. Pt's history is complicated by an ongoing hernia which has undergone three failed surgical repairs and causes him extreme pain as well. Pt reports his shoulder has limited mobility, which prevents him from performing any task which requires him to even lift his arm up to chest height. Prior Treatments and Tests Cervical X-ray: 1. Multilevel degenerative disease. 2. Mild to moderate C4-C5, C5-C6 and C6-C7 central canal narrowing. Mild C3-C4 central canal narrowing. 3. Mild to moderate bilateral C5-C6 neural foraminal narrowing. Mild bilateral C6-C7 neural foraminal narrowing. Mild left C3-C4 neural foraminal narrowing. 4. No neural impingement. IV reversal of normal cervical spine curvature. Per: Sindhu Watt MD, PhD on 09/17/2018 Treatment Goals Patient/Caregiver Goals I really just want to get rid of the pain. PT-OP-C Subjective Start: 11/18/18 17:47 Freq: Status: Active Protocol: Document 11/18/18 13:45 DCW (Rec: 11/19/18 16:55 [facility] [id number]) OP-PT Subjective Patient Comments Patient Comments Pt reports his inability to drive due to pain has greatly impacted his independence. Patient Questionnaires Quick Dash- Upper Extremity Quick Dash UE Score 68.18% Quick Dash UE Impairment 60 to 79% Impaired (Score 60- 79) OP-PT Pain Assessment Pain Assessment Grid Paper Pain Assessment Grid Completed Yes Location Bilateral Shoulder Intensity 8 Scale Used Numeric (1 - 10) PT-OP-F Manual Assessment Start: 11/18/18 17:47 Freq: Status: Active Protocol: Document 11/18/18 13:45 DCW (Rec: 11/19/18 16:55 DCW [id number]) Manual Assessments Soft Tissue Assessment Soft Tissue Mobility Assessment Moderate tone, tenderness to palpation 3/4 wincing and withdraw at right upper trap, right levator, right biceps tendon, bilateral suboccipitals Joint Mobility Assessment Joint Mobility Assessment Significant crepitus, limited ROM of right shoulder joint, pain with both AROM and PROM PT-OP-J Posture/Palpation/Skin Start: 11/19/18 16:55 Freq: Status: Active Protocol: Document 11/18/18 13:45 DCW (Rec: 11/19/18 16:56 DCW [id number]) Posture Evaluation Position Sitting Shoulder Posture (L) Forward Scapula Posture (L) Protracted (L) Rotated Down (L) Depressed PT-OP-K Range of Motion Start: 11/18/18 17:47 Freq: Status: Active Protocol: Document 11/18/18 13:45 DCW (Rec: 11/19/18 16:55 DCW [id number]) Cervical Spine Range of Motion Cervical Spine Active Degrees Testing Position Sitting Flexion 50 Extension 30 Rotation Left 48 Rotation Right 37 Lateral Flexion Left 30 Lateral Flexion Right 25 ROM Limitations Soft Tissue Tightness Bony Restriction Muscle Tone Pain Shoulder Goniometric Range of Motion Shoulder Right Passive Shoulder ROM WFL No Testing Position Sitting Flexion 57 Abduction 52 External Rotation at 0 degrees Abduction 70 Right Active Testing Position Sitting Flexion 50 Abduction 43 Left Shoulder ROM WFL Yes PT-OP-L Special Tests Start: 11/18/18 17:47 Freq: Status: Active Protocol: Document 11/18/18 13:45 DCW (Rec: 11/19/18 16:55 DCW [id number]) Special Tests Cervical Spine Special Tests Passive Neck Flexion Test Results Positive R Spurling's Test Test Results Positive R Traction Test Results Mild improvement Foraminal Compression Test Results Positive R Shoulder Special Tests Passive ER Rotator Cuff Test Results Positive R Lift-Off Rotator Cuff Test Results Unable to position arm Cooney David Impingement Test Results Positive R Empty Can Test Results Unable to position arm Drop Arm Rotator Cuff Test Results Unable to position arm Belly Press Test Results Positive R AC Joint Compression Test Results Positive R PT-OP-M Strength Start: 11/18/18 17:47 Freq: Status: Active Protocol: Document 11/18/18 13:45 DCW (Rec: 07/16/19 16:55 DCW [id number]) Shoulder Strength Shoulder Manual Muscle Testing Left Flexion 2+ Poor+ Abduction (C5) 2+ Poor+ External Rotation 3 Fair PT-OP-Q Treatments Start: 11/18/18 17:47 Freq: Status: Active Protocol: Document 11/18/18 13:45 DCW (Rec: 11/19/18 16:55 DCW [id number]) Self-Care/Home Management Treatment Education Patient Education Home Exercise Program Other Education Pendulums, Upper trap stretch PT-OP-T Assessment and Plan Start: 11/18/18 17:47 Freq: Status: Active Protocol: Document 11/18/18 13:45 DCW (Rec: 11/19/18 16:55 DCW [id number]) Physical Therapy Assessment Rehab Potential Rehabilitation Potential Good Evaluation Complexity Number of Personal Factors/Comorbidities 3 or More Number of Body Systems Impaired 4 or More Clinical Presentation at Evaluation Evolving Impairments Impairments Pain Posture ROM Soft Tissue Mobility Strength Tone Goals Four Impairment Restricted shoulder mobility [facility] Goal (LTG) Pt to improve active shoulder ROM to 100? 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 Pt has restricted cervical and R shoulder ROM, as well as moderate muscular tone, pain with nearly all shoulder mobility, and x-rays showing cervical degeneration. Nearly all special tests performed on his shoulder were either positive, or pt was unable to position his arm properly due to pain and joint immobility, which makes proper DDx difficult. Most likely diagnosis would be impingement of the supraspinatus due to a decreased subacromial space, potentially caused by the improper positioning of the scapula due to increased muscle tone. Pt's cervical ROM limitations are likely due to his disc degeneration, and pt may benefit from stretching, strengthening of deep neck flexors, and cervical traction . Pt will also probably benefit from general shoulder flexibility training, strengthening, PROM, and pain- control modalities. Physical Therapy Plan Frequency and Duration Frequency of Treatment 2x/Week Duration of Treatment 12 weeks Plan of Care Start Date 11/18/18 Plan of Care End Date 02/17/19 Therapeutic Interventions Therapeutic Interventions Home Exercise Program Joint Mobilizations Manual Therapy Patient/Caregiver Education Self-Care/Home Management Soft Tissue Mobilization Therapeutic Activities Therapeutic Exercises Modalities Cold Pack/Ice Massage Electric Stimulation Hot Packs Ultrasound Next Visit Focus/Plan Next Note Type Treatment Note Next Visit Plan Shoulder strengthening, flexibility/ROM training, Cervical STM, Cervical Traction
--- NOTE | 2018-11-27 17:19 | PT.OTN ---
Current Diagnoses Stiffness of unspecified joint, not elsewhere classified (11/27/18) Stiffness of right shoulder, not elsewhere classified (11/27/18) Cervical disc disorder, unspecified, unspecified cervical region (11/27/18) Radiculopathy, cervical region (11/27/18) Muscle weakness (generalized) (11/27/18) Abnormal posture (11/27/18) Physical Therapy Treatment Note PT-OP-A Visit Information Start: 11/18/18 17:47 Freq: Status: Active Protocol: Document 11/27/18 17:04 EA (Rec: 11/27/18 17:19 EA [id number]) Out-Patient Physical Therapy Visit Information Visit Information Visit Type Treatment Note Visit Start Time 16:00 Visit Stop Time 16:48 Total Visit Minutes 48 Visit Number 2 PT-OP-B Current Condition Start: 11/18/18 17:47 Freq: Status: Active Protocol: Document 11/18/18 13:45 DCW (Rec: 11/19/18 16:55 DCW [id number]) Current Condition History of Current Condition Onset Date 2 year history Current Complaints Cervical and right shoulder/ arm pain and stiffness History of Current Condition Pt is a 48 year old male presenting with a two year history of neck and right shoulder/arm pain. Pt reports that he has been diagnosed with cervical DJD, however at the moment, his neck is feeling pretty good. He still has increased pain in his right shoulder radiating to his mid-upper arm. Pt reports his cervical pain frequently makes him dizzy, and between that and the arm pain, he has not been driving. Pt's history is complicated by an ongoing hernia which has undergone three failed surgical repairs and causes him extreme pain as well. Pt reports his shoulder has limited mobility, which prevents him from performing any task which requires him to even lift his arm up to chest height. Prior Treatments and Tests Cervical X-ray: 1. Multilevel degenerative disease. 2. Mild to moderate C4-C5, C5-C6 and C6-C7 central canal narrowing. Mild C3-C4 central canal narrowing. 3. Mild to moderate bilateral C5-C6 neural foraminal narrowing. Mild bilateral C6-C7 neural foraminal narrowing. Mild left C3-C4 neural foraminal narrowing. 4. No neural impingement. IV reversal of normal cervical spine curvature. Per: Sindhu Watt MD, PhD on 09/17/2018 Treatment Goals Patient/Caregiver Goals I really just want to get rid of the pain. PT-OP-C Subjective Start: 11/18/18 17:47 Freq: Status: Active Protocol: Document 11/27/18 17:04 EA (Rec: 11/27/18 17:19 EA [id number]) OP-PT Subjective Patient Comments Patient Comments Pt reports has to take 800 ml of ibuprofen today. Patient Reported Progress Worse PT-OP-F Manual Assessment Start: 11/18/18 17:47 Freq: Status: Active Protocol: Document 11/18/18 13:45 DCW (Rec: 11/19/18 16:55 DCW [id number]) Manual Assessments Soft Tissue Assessment Soft Tissue Mobility Assessment Moderate tone, tenderness to palpation 3/4 wincing and withdraw at right upper trap, right levator, right biceps tendon, bilateral suboccipitals Joint Mobility Assessment Joint Mobility Assessment Significant crepitus, limited ROM of right shoulder joint, pain with both AROM and PROM PT-OP-J Posture/Palpation/Skin Start: 11/19/18 16:55 Freq: Status: Active Protocol: Document 11/18/18 13:45 DCW (Rec: 11/19/18 16:56 DCW [id number]) Posture Evaluation Position Sitting Shoulder Posture (L) Forward Scapula Posture (L) Protracted (L) Rotated Down (L) Depressed PT-OP-K Range of Motion Start: 11/18/18 17:47 Freq: Status: Active Protocol: Document 11/18/18 13:45 DCW (Rec: 11/19/18 16:55 DCW [id number]) Cervical Spine Range of Motion Cervical Spine Active Degrees Testing Position Sitting Flexion 50 Extension 30 Rotation Left 48 Rotation Right 37 Lateral Flexion Left 30 Lateral Flexion Right 25 ROM Limitations Soft Tissue Tightness Bony Restriction Muscle Tone Pain Shoulder Goniometric Range of Motion Shoulder Right Passive Shoulder ROM WFL No Testing Position Sitting Flexion 57 Abduction 52 External Rotation at 0 degrees Abduction 70 Right Active Testing Position Sitting Flexion 50 Abduction 43 Left Shoulder ROM WFL Yes PT-OP-L Special Tests Start: 11/18/18 17:47 Freq: Status: Active Protocol: Document 11/18/18 13:45 DCW (Rec: 11/19/18 16:55 DCW [id number]) Special Tests Cervical Spine Special Tests Passive Neck Flexion Test Results Positive R Spurling's Test Test Results Positive R Traction Test Results Mild improvement Foraminal Compression Test Results Positive R Shoulder Special Tests Passive ER Rotator Cuff Test Results Positive R Lift-Off Rotator Cuff Test Results Unable to position arm Cooney David Impingement Test Results Positive R Empty Can Test Results Unable to position arm Drop Arm Rotator Cuff Test Results Unable to position arm Belly Press Test Results Positive R AC Joint Compression Test Results Positive R PT-OP-M Strength Start: 11/18/18 17:47 Freq: Status: Active Protocol: Document 11/18/18 13:45 DCW (Rec: 11/19/18 16:55 DCW [id number]) Shoulder Strength Shoulder Manual Muscle Testing Left Flexion 2+ Poor+ Abduction (C5) 2+ Poor+ External Rotation 3 Fair PT-OP-Q Treatments Start: 11/18/18 17:47 Freq: Status: Active Protocol: Document 11/27/18 17:04 EA (Rec: 11/27/18 17:19 EA [id number]) Therapeutic Exercises Supine Exercises 3 Supine Exercise Name T-bar shoulder protraction Side bilateral Reps/Minutes x 15 reps 2 Supine Exercise Name T-bar flexion Reps/Minutes x 15 reps 1 Supine Exercise Name T-bar press Side bilateral Reps/Minutes x 15 reps Sidelying Exercises 2 Sidelying Exercise Name Shoulder ER Side right Reps/Minutes x 12 reps 1 Sidelying Exercise Name painfree range shoulder ABD Side right Reps/Minutes x 12 reps Manual Therapy Treatment Soft Tissue Mobilization 1 Body Location Upper traps, Paracervicals, LS , Mobilization Type Myofascial Release Rolling Sustained Pressure Intensity/Depth Moderate Body Position Supine Manual Traction Cervical Details distracted 3 secs hold x 10 reps Body Position Supine Reps/Duration 5 mins Manual Techniques 2 Type Gentle stretch to cervical extensors/rotators, side flexors Body Position Supine 1 Type PROM shoulder ER/IR/ABD Body Position Supine PT-OP-R Modalities Start: 11/18/18 17:47 Freq: Status: Active Protocol: Document 11/27/18 17:04 EA (Rec: 11/27/18 17:19 EA [id number]) Hot Pack/Cold Pack Treatment Cold Pack Patient Position Supine Patient Tolerance Good PT-OP-T Assessment and Plan Start: 11/18/18 17:47 Freq: Status: Active Protocol: Document 11/27/18 17:04 EA (Rec: 11/27/18 17:19 EA [id number]) Physical Therapy Assessment Assessment Summary Assessment Pt tolerated gentle manual therapy and therex. Physical Therapy Plan Next Visit Focus/Plan Next Note Type Treatment Note Next Visit Plan provide HEP with image
--- NOTE | 2018-12-02 11:36 | PT.OTN ---
Current Diagnoses Stiffness of unspecified joint, not elsewhere classified (12/02/18) Stiffness of right shoulder, not elsewhere classified (12/02/18) Cervical disc disorder, unspecified, unspecified cervical region (12/02/18) Radiculopathy, cervical region (12/02/18) Muscle weakness (generalized) (12/02/18) Abnormal posture (12/02/18) Physical Therapy Treatment Note PT-OP-A Visit Information Start: 11/18/18 17:47 Freq: Status: Active Protocol: Document 12/02/18 10:28 [facility] (Rec: 12/02/18 11:36 [facility] [id number]) Out-Patient Physical Therapy Visit Information Visit Information Visit Type Treatment Note Visit Start Time 10:30 Visit Stop Time 11:20 Total Visit Minutes 50 Visit Number 3 Number of WIRELESS CELLULAR TECHNICIAN Visits 0 PT-OP-B Current Condition Start: 11/18/18 17:47 Freq: Status: Active Protocol: Document 11/18/18 13:45 DCW (Rec: 11/19/18 16:55 DCW [id number]) Current Condition History of Current Condition Onset Date 2 year history Current Complaints Cervical and right shoulder/ arm pain and stiffness History of Current Condition Pt is a 48 year old male presenting with a two year history of neck and right shoulder/arm pain. Pt reports that he has been diagnosed with cervical DJD, however at the moment, his neck is feeling pretty good. He still has increased pain in his right shoulder radiating to his mid-upper arm. Pt reports his cervical pain frequently makes him dizzy, and between that and the arm pain, he has not been driving. Pt's history is complicated by an ongoing hernia which has undergone three failed surgical repairs and causes him extreme pain as well. Pt reports his shoulder has limited mobility, which prevents him from performing any task which requires him to even lift his arm up to chest height. Prior Treatments and Tests Cervical X-ray: 1. Multilevel degenerative disease. 2. Mild to moderate C4-C5, C5-C6 and C6-C7 central canal narrowing. Mild C3-C4 central canal narrowing. 3. Mild to moderate bilateral C5-C6 neural foraminal narrowing. Mild bilateral C6-C7 neural foraminal narrowing. Mild left C3-C4 neural foraminal narrowing. 4. No neural impingement. IV reversal of normal cervical spine curvature. Per: Sindhu Watt MD, PhD on 09/17/2018 Treatment Goals Patient/Caregiver Goals I really just want to get rid of the pain. PT-OP-C Subjective Start: 11/18/18 17:47 Freq: Status: Active Protocol: Document 12/02/18 10:28 [facility] (Rec: 12/02/18 11:36 [facility] [id number]) OP-PT Subjective Patient Comments Patient Comments Pt reports feeling looser after exercises and manual last session. PT-OP-F Manual Assessment Start: 11/18/18 17:47 Freq: Status: Active Protocol: Document 11/18/18 13:45 DCW (Rec: 11/19/18 16:55 DCW [id number]) Manual Assessments Soft Tissue Assessment Soft Tissue Mobility Assessment Moderate tone, tenderness to palpation 3/4 wincing and withdraw at right upper trap, right levator, right biceps tendon, bilateral suboccipitals Joint Mobility Assessment Joint Mobility Assessment Significant crepitus, limited ROM of right shoulder joint, pain with both AROM and PROM PT-OP-J Posture/Palpation/Skin Start: 11/19/18 16:55 Freq: Status: Active Protocol: Document 11/18/18 13:45 DCW (Rec: 11/19/18 16:56 DCW [id number]) Posture Evaluation Position Sitting Shoulder Posture (L) Forward Scapula Posture (L) Protracted (L) Rotated Down (L) Depressed PT-OP-K Range of Motion Start: 11/18/18 17:47 Freq: Status: Active Protocol: Document 11/18/18 13:45 DC[facility] (Rec: 11/19/18 16:55 DCW [id number]) Cervical Spine Range of Motion Cervical Spine Active Degrees Testing Position Sitting Flexion 50 Extension 30 Rotation Left 48 Rotation Right 37 Lateral Flexion Left 30 Lateral Flexion Right 25 ROM Limitations Soft Tissue Tightness Bony Restriction Muscle Tone Pain Shoulder Goniometric Range of Motion Shoulder Right Passive Shoulder ROM WFL No Testing Position Sitting Flexion 57 Abduction 52 External Rotation at 0 degrees Abduction 70 Right Active Testing Position Sitting Flexion 50 Abduction 43 Left Shoulder ROM WFL Yes PT-OP-L Special Tests Start: 11/18/18 17:47 Freq: Status: Active Protocol: Document 11/18/18 13:45 DCW (Rec: 11/19/18 16:55 DCW [id number]) Special Tests Cervical Spine Special Tests Passive Neck Flexion Test Results Positive R Spurling's Test Test Results Positive R Traction Test Results Mild improvement Foraminal Compression Test Results Positive R Shoulder Special Tests Passive ER Rotator Cuff Test Results Positive R Lift-Off Rotator Cuff Test Results Unable to position arm Cooney David Impingement Test Results Positive R Empty Can Test Results Unable to position arm Drop Arm Rotator Cuff Test Results Unable to position arm Belly Press Test Results Positive R AC Joint Compression Test Results Positive R PT-OP-M Strength Start: 11/18/18 17:47 Freq: Status: Active Protocol: Document 11/18/18 13:45 DCW (Rec: 11/19/18 16:55 DCW [id number]) Shoulder Strength Shoulder Manual Muscle Testing Left Flexion 2+ Poor+ Abduction (C5) 2+ Poor+ External Rotation 3 Fair PT-OP-Q Treatments Start: 11/18/18 17:47 Freq: Status: Active Protocol: Document 12/02/18 10:28 [facility] (Rec: 12/02/18 11:36 [facility] [id number]) Therapeutic Exercises Supine Exercises 3 Supine Exercise Name T-bar shoulder protraction Side bilateral Reps/Minutes x 20 reps 2 Supine Exercise Name T-bar flexion Reps/Minutes x 20 reps 1 Supine Exercise Name T-bar press Side bilateral Reps/Minutes x 20 reps Sidelying Exercises 2 Sidelying Exercise Name Shoulder ER Side right Reps/Minutes x 15 reps 1 Sidelying Exercise Name painfree range shoulder ABD Side right Reps/Minutes x 15 reps Sitting Exercises stretch Sitting Exercise Name UT Side right Reps/Minutes 30 sec Comments not left d/t painful with R SB Manual Therapy Treatment Soft Tissue Mobilization pec Body Location R Mobilization Type Rolling Intensity/Depth Superficial 1 Body Location Upper traps, Paracervicals, LS , scalenes Mobilization Type Myofascial Release Rolling Sustained Pressure Intensity/Depth Moderate Body Position Supine Comments depth superficial to moderate Joint Mobilizations GH Joint R Direction distraction, post, inf Grade I Manual Techniques 1 Type PROM shoulder ER/IR/ABD/flex Body Position Supine PT-OP-R Modalities Start: 11/18/18 17:47 Freq: Status: Active Protocol: Document 12/02/18 10:28 [facility] (Rec: 12/02/18 11:36 [facility] [id number]) Hot Pack/Cold Pack Treatment Cold Pack Patient Position Supine Patient Tolerance Good PT-OP-T Assessment and Plan Start: 11/18/18 17:47 Freq: Status: Active Protocol: Document 12/02/18 10:28 [facility] (Rec: 12/02/18 11:36 [facility] [id number]) Physical Therapy Assessment Goals Four Impairment Restricted shoulder mobility Penitentiary Goal (LTG) Pt to improve active shoulder ROM to 100? 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 Pt able to do exercises with min cueing and focus on breathing with exercises. He had significant tenderness to palpation and with joint mobs so gentle pressure was done. Pt was encouraged to ice at home. Physical Therapy Plan Frequency and Duration Frequency of Treatment 2x/Week Duration of Treatment 12 weeks Plan of Care Start Date 11/18/18 Plan of Care End Date 02/17/19 Next Visit Focus/Plan Next Note Type Treatment Note Next Visit Plan advance ROM & scap stability as pt tolerates
--- NOTE | 2018-12-05 16:00 | PT.OTN ---
Current Diagnoses Stiffness of unspecified joint, not elsewhere classified (12/05/18) Stiffness of right shoulder, not elsewhere classified (12/05/18) Cervical disc disorder, unspecified, unspecified cervical region (12/05/18) Radiculopathy, cervical region (12/05/18) Muscle weakness (generalized) (12/05/18) Abnormal posture (12/05/18) Physical Therapy Treatment Note PT-OP-A Visit Information Start: 11/18/18 17:47 Freq: Status: Active Protocol: Document 12/05/18 15:53 EA (Rec: 12/05/18 15:57 EA [id number]) Out-Patient Physical Therapy Visit Information Visit Information Visit Type Treatment Note Visit Start Time 15:15 Visit Stop Time 15:50 Total Visit Minutes 38 Visit Number 4 PT-OP-B Current Condition Start: 11/18/18 17:47 Freq: Status: Active Protocol: Document 11/18/18 13:45 DCW (Rec: 11/19/18 16:55 DCW [id number]) Current Condition History of Current Condition Onset Date 2 year history Current Complaints Cervical and right shoulder/ arm pain and stiffness History of Current Condition Pt is a 48 year old male presenting with a two year history of neck and right shoulder/arm pain. Pt reports that he has been diagnosed with cervical DJD, however at the moment, his neck is feeling pretty good. He still has increased pain in his right shoulder radiating to his mid-upper arm. Pt reports his cervical pain frequently makes him dizzy, and between that and the arm pain, he has not been driving. Pt's history is complicated by an ongoing hernia which has undergone three failed surgical repairs and causes him extreme pain as well. Pt reports his shoulder has limited mobility, which prevents him from performing any task which requires him to even lift his arm up to chest height. Prior Treatments and Tests Cervical X-ray: 1. Multilevel degenerative disease. 2. Mild to moderate C4-C5, C5-C6 and C6-C7 central canal narrowing. Mild C3-C4 central canal narrowing. 3. Mild to moderate bilateral C5-C6 neural foraminal narrowing. Mild bilateral C6-C7 neural foraminal narrowing. Mild left C3-C4 neural foraminal narrowing. 4. No neural impingement. IV reversal of normal cervical spine curvature. Per: Sindhu Watt MD, PhD on 09/17/2018 Treatment Goals Patient/Caregiver Goals I really just want to get rid of the pain. PT-OP-C Subjective Start: 11/18/18 17:47 Freq: Status: Active Protocol: Document 12/05/18 15:53 EA (Rec: 12/05/18 15:57 EA [id number]) OP-PT Subjective Patient Comments Patient Comments Pt reports shoulder and neck was quite sore after last treament. PT-OP-F Manual Assessment Start: 11/18/18 17:47 Freq: Status: Active Protocol: Document 11/18/18 13:45 DCW (Rec: 11/19/18 16:55 DCW [id number]) Manual Assessments Soft Tissue Assessment Soft Tissue Mobility Assessment Moderate tone, tenderness to palpation 3/4 wincing and withdraw at right upper trap, right levator, right biceps tendon, bilateral suboccipitals Joint Mobility Assessment Joint Mobility Assessment Significant crepitus, limited ROM of right shoulder joint, pain with both AROM and PROM PT-OP-J Posture/Palpation/Skin Start: 11/19/18 16:55 Freq: Status: Active Protocol: Document 11/18/18 13:45 DCW (Rec: 11/19/18 16:56 DCW [id number]) Posture Evaluation Position Sitting Shoulder Posture (L) Forward Scapula Posture (L) Protracted (L) Rotated Down (L) Depressed PT-OP-K Range of Motion Start: 11/18/18 17:47 Freq: Status: Active Protocol: Document 11/18/18 13:45 DC[facility] (Rec: 11/19/18 16:55 DCW [id number]) Cervical Spine Range of Motion Cervical Spine Active Degrees Testing Position Sitting Flexion 50 Extension 30 Rotation Left 48 Rotation Right 37 Lateral Flexion Left 30 Lateral Flexion Right 25 ROM Limitations Soft Tissue Tightness Bony Restriction Muscle Tone Pain Shoulder Goniometric Range of Motion Shoulder Right Passive Shoulder ROM WFL No Testing Position Sitting Flexion 57 Abduction 52 External Rotation at 0 degrees Abduction 70 Right Active Testing Position Sitting Flexion 50 Abduction 43 Left Shoulder ROM WFL Yes PT-OP-L Special Tests Start: 11/18/18 17:47 Freq: Status: Active Protocol: Document 11/18/18 13:45 DCW (Rec: 11/19/18 16:55 DCW [id number]) Special Tests Cervical Spine Special Tests Passive Neck Flexion Test Results Positive R Spurling's Test Test Results Positive R Traction Test Results Mild improvement Foraminal Compression Test Results Positive R Shoulder Special Tests Passive ER Rotator Cuff Test Results Positive R Lift-Off Rotator Cuff Test Results Unable to position arm Cooney David Impingement Test Results Positive R Empty Can Test Results Unable to position arm Drop Arm Rotator Cuff Test Results Unable to position arm Belly Press Test Results Positive R AC Joint Compression Test Results Positive R PT-OP-M Strength Start: 11/18/18 17:47 Freq: Status: Active Protocol: Document 11/18/18 13:45 DCW (Rec: 11/19/18 16:55 DCW [id number]) Shoulder Strength Shoulder Manual Muscle Testing Left Flexion 2+ Poor+ Abduction (C5) 2+ Poor+ External Rotation 3 Fair PT-OP-Q Treatments Start: 11/18/18 17:47 Freq: Status: Active Protocol: Document 12/05/18 15:58 EA (Rec: 12/05/18 16:00 EA [id number]) Cardio Equipment Upper Body Ergometer (UBE) Duration (Minutes) 6 Seat Position 11 Height 4 Therapeutic Exercises Supine Exercises 3 Supine Exercise Name T-bar shoulder protraction Side bilateral Reps/Minutes x 20 reps 2 Supine Exercise Name T-bar flexion Reps/Minutes x 20 reps 1 Supine Exercise Name T-bar press Side bilateral Reps/Minutes x 20 reps Sidelying Exercises 2 Sidelying Exercise Name Shoulder ER Side right Reps/Minutes x 15 reps 1 Sidelying Exercise Name painfree range shoulder ABD Side right Reps/Minutes x 15 reps Sitting Exercises stretch Sitting Exercise Name UT Side right Reps/Minutes 30 sec Comments not left d/t painful with R SB Manual Therapy Treatment Soft Tissue Mobilization 1 Body Location Upper traps, Paracervicals, LS , scalenes Mobilization Type Myofascial Release Rolling Sustained Pressure Intensity/Depth Moderate Body Position Supine Comments depth superficial to moderate Joint Mobilizations GH Joint R Direction distraction, post, inf Grade I Manual Techniques 2 Type Gentle stretch to cervical extensors/rotators, side flexors Body Position Supine 1 Type PROM shoulder ER/IR/ABD/flex Body Position Supine PT-OP-R Modalities Start: 11/18/18 17:47 Freq: Status: Active Protocol: Document 12/02/18 10:28 [facility] (Rec: 12/02/18 11:36 [facility] [id number]) Hot Pack/Cold Pack Treatment Cold Pack Patient Position Supine Patient Tolerance Good PT-OP-T Assessment and Plan Start: 11/18/18 17:47 Freq: Status: Active Protocol: Document 12/05/18 15:53 EA (Rec: 12/05/18 15:57 EA [id number]) Physical Therapy Assessment Assessment Summary Assessment Both anterior shoulder is quite tender touch today; therefore light AROM and gentle manual therapy to neck and shoulder performed. He refuses ice or warmth today. Physical Therapy Plan Next Visit Focus/Plan Next Note Type Treatment Note Next Visit Plan advance ROM & scap stability as pt tolerates
--- NOTE | 2018-12-19 16:44 | PT.OTN ---
Current Diagnoses Stiffness of unspecified joint, not elsewhere classified (12/19/18) Stiffness of right shoulder, not elsewhere classified (12/19/18) Cervical disc disorder, unspecified, unspecified cervical region (12/19/18) Radiculopathy, cervical region (12/19/18) Muscle weakness (generalized) (12/19/18) Abnormal posture (12/19/18) Physical Therapy Treatment Note PT-OP-A Visit Information Start: 11/18/18 17:47 Freq: Status: Active Protocol: Document 12/19/18 16:00 DCW (Rec: 12/19/18 16:43 DCW [id number]) Out-Patient Physical Therapy Visit Information Visit Information Visit Type Treatment Note Visit Start Time 16:00 Visit Stop Time 16:45 Total Visit Minutes 45 Visit Number 5 Number of STANDARD MACHINE STITCHER Visits 0 PT-OP-B Current Condition Start: 11/18/18 17:47 Freq: Status: Active Protocol: Document 11/18/18 13:45 DC[facility] (Rec: 11/19/18 16:55 DCW [id number]) Current Condition History of Current Condition Onset Date 2 year history Current Complaints Cervical and right shoulder/ arm pain and stiffness History of Current Condition Pt is a 48 year old male presenting with a two year history of neck and right shoulder/arm pain. Pt reports that he has been diagnosed with cervical DJD, however at the moment, his neck is feeling pretty good. He still has increased pain in his right shoulder radiating to his mid-upper arm. Pt reports his cervical pain frequently makes him dizzy, and between that and the arm pain, he has not been driving. Pt's history is complicated by an ongoing hernia which has undergone three failed surgical repairs and causes him extreme pain as well. Pt reports his shoulder has limited mobility, which prevents him from performing any task which requires him to even lift his arm up to chest height. Prior Treatments and Tests Cervical X-ray: 1. Multilevel degenerative disease. 2. Mild to moderate C4-C5, C5-C6 and C6-C7 central canal narrowing. Mild C3-C4 central canal narrowing. 3. Mild to moderate bilateral C5-C6 neural foraminal narrowing. Mild bilateral C6-C7 neural foraminal narrowing. Mild left C3-C4 neural foraminal narrowing. 4. No neural impingement. IV reversal of normal cervical spine curvature. Per: Sindhu Watt MD, PhD on 09/17/2018 Treatment Goals Patient/Caregiver Goals I really just want to get rid of the pain. PT-OP-C Subjective Start: 11/18/18 17:47 Freq: Status: Active Protocol: Document 12/19/18 16:00 DCW (Rec: 12/19/18 16:43 DCW [id number]) OP-PT Subjective Patient Comments Patient Comments My shoulder and neck have actually been feeling a lot better, but I'm still getting a lot of aching in my arm and fingers. PT-OP-F Manual Assessment Start: 11/18/18 17:47 Freq: Status: Active Protocol: Document 11/18/18 13:45 DCW (Rec: 11/19/18 16:55 DCW [id number]) Manual Assessments Soft Tissue Assessment Soft Tissue Mobility Assessment Moderate tone, tenderness to palpation 3/4 wincing and withdraw at right upper trap, right levator, right biceps tendon, bilateral suboccipitals Joint Mobility Assessment Joint Mobility Assessment Significant crepitus, limited ROM of right shoulder joint, pain with both AROM and PROM PT-OP-J Posture/Palpation/Skin Start: 11/19/18 16:55 Freq: Status: Active Protocol: Document 11/18/18 13:45 DCW (Rec: 11/19/18 16:56 DCW [id number]) Posture Evaluation Position Sitting Shoulder Posture (L) Forward Scapula Posture (L) Protracted (L) Rotated Down (L) Depressed PT-OP-K Range of Motion Start: 11/18/18 17:47 Freq: Status: Active Protocol: Document 11/18/18 13:45 DCW (Rec: 11/19/18 16:55 DCW [id number]) Cervical Spine Range of Motion Cervical Spine Active Degrees Testing Position Sitting Flexion 50 Extension 30 Rotation Left 48 Rotation Right 37 Lateral Flexion Left 30 Lateral Flexion Right 25 ROM Limitations Soft Tissue Tightness Bony Restriction Muscle Tone Pain Shoulder Goniometric Range of Motion Shoulder Right Passive Shoulder ROM WFL No Testing Position Sitting Flexion 57 Abduction 52 External Rotation at 0 degrees Abduction 70 Right Active Testing Position Sitting Flexion 50 Abduction 43 Left Shoulder ROM WFL Yes PT-OP-L Special Tests Start: 11/18/18 17:47 Freq: Status: Active Protocol: Document 11/18/18 13:45 DCW (Rec: 11/19/18 16:55 DCW [id number]) Special Tests Cervical Spine Special Tests Passive Neck Flexion Test Results Positive R Spurling's Test Test Results Positive R Traction Test Results Mild improvement Foraminal Compression Test Results Positive R Shoulder Special Tests Passive ER Rotator Cuff Test Results Positive R Lift-Off Rotator Cuff Test Results Unable to position arm Cooney David Impingement Test Results Positive R Empty Can Test Results Unable to position arm Drop Arm Rotator Cuff Test Results Unable to position arm Belly Press Test Results Positive R AC Joint Compression Test Results Positive R PT-OP-M Strength Start: 11/18/18 17:47 Freq: Status: Active Protocol: Document 11/18/18 13:45 DCW (Rec: 11/19/18 16:55 DCW [id number]) Shoulder Strength Shoulder Manual Muscle Testing Left Flexion 2+ Poor+ Abduction (C5) 2+ Poor+ External Rotation 3 Fair PT-OP-Q Treatments Start: 11/18/18 17:47 Freq: Status: Active Protocol: Document 12/19/18 16:00 DCW (Rec: 12/19/18 16:43 DCW [id number]) Cardio Equipment Upper Body Ergometer (UBE) Duration (Minutes) 5 Seat Position 11 Height 5 Other c/o arm pain Therapeutic Exercises Supine Exercises 3 Supine Exercise Name T-bar shoulder protraction Side bilateral Reps/Minutes x 20 reps 2 Supine Exercise Name T-bar flexion Reps/Minutes x 20 reps 1 Supine Exercise Name T-bar press Side bilateral Reps/Minutes x 20 reps Sitting Exercises AAROM Sitting Exercise Name Pulleys - Flexion Side bilateral Manual Therapy Treatment Soft Tissue Mobilization 1 Body Location Upper traps, Paracervicals, LS , scalenes Mobilization Type Myofascial Release Rolling Sustained Pressure Intensity/Depth Moderate Body Position Supine Comments depth superficial to moderate Joint Mobilizations GH Joint R Direction distraction, post, inf Grade I Manual Traction Cervical Body Position Supine Manual Techniques 2 Type Gentle stretch to cervical extensors/rotators, side flexors Body Position Supine 1 Type PROM shoulder ER/IR/ABD/flex Body Position Supine PT-OP-R Modalities Start: 11/18/18 17:47 Freq: Status: Active Protocol: Document 12/02/18 10:28 LR (Rec: 12/02/18 11:36 LR [id number]) Hot Pack/Cold Pack Treatment Cold Pack Patient Position Supine Patient Tolerance Good PT-OP-T Assessment and Plan Start: 11/18/18 17:47 Freq: Status: Active Protocol: Document 12/19/18 16:00 DCW (Rec: 12/19/18 16:43 DCW [id number]) Physical Therapy Assessment Goals Four Impairment Restricted shoulder mobility Prison Goal (LTG) Pt to improve active shoulder ROM to 100? in both flexion and abduction LTG Duration 01/19/19 Three Impairment Poor positioning of right scapula Prison Goal (LTG) Pt's right scapular positioning equal to left scapula LTG Duration 01/19/19 Two Impairment Pt unable to drive due to increased shoulder and neck pain Tipple Operator Goal (LTG) Pt to drive to [place] and back with no increased cervical or shoulder pain LTG Duration 01/19/19 One Impairment Pt does not have an appropriate home exercise program Short Term Goal (STG) Pt to be independent and compliant with an appropriate HEP STG Duration 12/19/18 Assessment Summary Assessment Pt appears to be improving with overall decrease in soreness, however still very tender to palpation and experiences increased pain with PROM. Physical Therapy Plan Frequency and Duration Frequency of Treatment 2x/Week Duration of Treatment 12 weeks Plan of Care Start Date 11/18/18 Plan of Care End Date 02/17/19 Next Visit Focus/Plan Next Note Type Treatment Note Next Visit Plan advance ROM & scap stability as pt tolerates
--- NOTE | 2018-12-23 17:16 | PT.OTN ---
Current Diagnoses Stiffness of unspecified joint, not elsewhere classified (12/23/18) Stiffness of right shoulder, not elsewhere classified (12/23/18) Cervical disc disorder, unspecified, unspecified cervical region (12/23/18) Radiculopathy, cervical region (12/23/18) Muscle weakness (generalized) (12/23/18) Abnormal posture (12/23/18) Physical Therapy Treatment Note PT-OP-A Visit Information Start: 11/18/18 17:47 Freq: Status: Active Protocol: Document 12/23/18 16:45 DCW (Rec: 12/23/18 17:15 DCW [id number]) Out-Patient Physical Therapy Visit Information Visit Information Visit Type Treatment Note Visit Start Time 16:45 Visit Stop Time 17:30 Total Visit Minutes 45 Visit Number 6 Number of RETAIL COORDINATOR Visits 0 PT-OP-B Current Condition Start: 11/18/18 17:47 Freq: Status: Active Protocol: Document 11/18/18 13:45 DCW (Rec: 11/19/18 16:55 DCW [id number]) Current Condition History of Current Condition Onset Date 2 year history Current Complaints Cervical and right shoulder/ arm pain and stiffness History of Current Condition Pt is a 48 year old male presenting with a two year history of neck and right shoulder/arm pain. Pt reports that he has been diagnosed with cervical DJD, however at the moment, his neck is feeling pretty good. He still has increased pain in his right shoulder radiating to his mid-upper arm. Pt reports his cervical pain frequently makes him dizzy, and between that and the arm pain, he has not been driving. Pt's history is complicated by an ongoing hernia which has undergone three failed surgical repairs and causes him extreme pain as well. Pt reports his shoulder has limited mobility, which prevents him from performing any task which requires him to even lift his arm up to chest height. Prior Treatments and Tests Cervical X-ray: 1. Multilevel degenerative disease. 2. Mild to moderate C4-C5, C5-C6 and C6-C7 central canal narrowing. Mild C3-C4 central canal narrowing. 3. Mild to moderate bilateral C5-C6 neural foraminal narrowing. Mild bilateral C6-C7 neural foraminal narrowing. Mild left C3-C4 neural foraminal narrowing. 4. No neural impingement. IV reversal of normal cervical spine curvature. Per: Sindhu Watt MD, PhD on 09/17/2018 Treatment Goals Patient/Caregiver Goals I really just want to get rid of the pain. PT-OP-C Subjective Start: 11/18/18 17:47 Freq: Status: Active Protocol: Document 12/23/18 16:45 DCW (Rec: 12/23/18 17:15 DCW [id number]) OP-PT Subjective Patient Comments Patient Comments Pt reports he is in a lot of pain from his chronic hernia after doing a lot of walking over the weekend. PT-OP-F Manual Assessment Start: 11/18/18 17:47 Freq: Status: Active Protocol: Document 11/18/18 13:45 DCW (Rec: 11/19/18 16:55 DCW [id number]) Manual Assessments Soft Tissue Assessment Soft Tissue Mobility Assessment Moderate tone, tenderness to palpation 3/4 wincing and withdraw at right upper trap, right levator, right biceps tendon, bilateral suboccipitals Joint Mobility Assessment Joint Mobility Assessment Significant crepitus, limited ROM of right shoulder joint, pain with both AROM and PROM PT-OP-J Posture/Palpation/Skin Start: 11/19/18 16:55 Freq: Status: Active Protocol: Document 11/18/18 13:45 DCW (Rec: 11/19/18 16:56 DCW [id number]) Posture Evaluation Position Sitting Shoulder Posture (L) Forward Scapula Posture (L) Protracted (L) Rotated Down (L) Depressed PT-OP-K Range of Motion Start: 11/18/18 17:47 Freq: Status: Active Protocol: Document 11/18/18 13:45 DCW (Rec: 11/19/18 16:55 DCW [id number]) Cervical Spine Range of Motion Cervical Spine Active Degrees Testing Position Sitting Flexion 50 Extension 30 Rotation Left 48 Rotation Right 37 Lateral Flexion Left 30 Lateral Flexion Right 25 ROM Limitations Soft Tissue Tightness Bony Restriction Muscle Tone Pain Shoulder Goniometric Range of Motion Shoulder Right Passive Shoulder ROM WFL No Testing Position Sitting Flexion 57 Abduction 52 External Rotation at 0 degrees Abduction 70 Right Active Testing Position Sitting Flexion 50 Abduction 43 Left Shoulder ROM WFL Yes PT-OP-L Special Tests Start: 11/18/18 17:47 Freq: Status: Active Protocol: Document 11/18/18 13:45 DCW (Rec: 11/19/18 16:55 DCW [id number]) Special Tests Cervical Spine Special Tests Passive Neck Flexion Test Results Positive R Spurling's Test Test Results Positive R Traction Test Results Mild improvement Foraminal Compression Test Results Positive R Shoulder Special Tests Passive ER Rotator Cuff Test Results Positive R Lift-Off Rotator Cuff Test Results Unable to position arm Cooney David Impingement Test Results Positive R Empty Can Test Results Unable to position arm Drop Arm Rotator Cuff Test Results Unable to position arm Belly Press Test Results Positive R AC Joint Compression Test Results Positive R PT-OP-M Strength Start: 11/18/18 17:47 Freq: Status: Active Protocol: Document 11/18/18 13:45 DCW (Rec: 11/19/18 16:55 DCW [id number]) Shoulder Strength Shoulder Manual Muscle Testing Left Flexion 2+ Poor+ Abduction (C5) 2+ Poor+ External Rotation 3 Fair PT-OP-Q Treatments Start: 11/18/18 17:47 Freq: Status: Active Protocol: Document 12/23/18 16:45 DCW (Rec: 12/23/18 17:15 DCW [id number]) Cardio Equipment Upper Body Ergometer (UBE) Duration (Minutes) 6 Seat Position 11 Height 4 Manual Therapy Treatment Soft Tissue Mobilization 1 Body Location Upper traps, Paracervicals, LS , scalenes Mobilization Type Myofascial Release Rolling Sustained Pressure Intensity/Depth Moderate Body Position Supine Comments depth superficial to moderate Joint Mobilizations GH Joint R Direction distraction, post, inf Grade I Manual Techniques 2 Type Gentle stretch to cervical extensors/rotators, side flexors Body Position Supine 1 Type PROM shoulder ER/IR/ABD/flex Body Position Supine PT-OP-R Modalities Start: 11/18/18 17:47 Freq: Status: Active Protocol: Document 12/23/18 16:45 DCW (Rec: 12/23/18 17:16 DCW [id number]) Electric Stimulation Electric Stimulation Interferential Current (IFC) Body Location R shoulder Duration (Minutes) 15 Intensity 14 Cycle Continuous Patient Position Hooklying Combined With Heat/Cold Cold Pack PT-OP-T Assessment and Plan Start: 11/18/18 17:47 Freq: Status: Active Protocol: Document 12/23/18 16:45 DCW (Rec: 12/23/18 17:15 DCW [id number]) Physical Therapy Assessment Goals Four Impairment Restricted shoulder mobility [place] Goal (LTG) Pt to improve active shoulder ROM to 100? in both flexion and abduction LTG Duration 01/19/19 Three Impairment Poor positioning of right scapula Nursing Home Goal (LTG) Pt's right scapular positioning equal to left scapula LTG Duration 01/19/19 Two Impairment Pt unable to drive due to increased shoulder and neck pain [place] Goal (LTG) Pt to drive to [place] and back with no increased cervical or shoulder pain LTG Duration 01/19/19 One Impairment Pt does not have an appropriate home exercise program Short Term Goal (STG) Pt to be independent and compliant with an appropriate HEP STG Duration 12/19/18 Assessment Summary Assessment Pt clearly very sore today, had difficulty participating in therapy today. Trial of E- stim to determine if pt's pain decreases. Physical Therapy Plan Frequency and Duration Frequency of Treatment 2x/Week Duration of Treatment 12 weeks Plan of Care Start Date 11/18/18 Plan of Care End Date 02/17/19 Next Visit Focus/Plan Next Note Type Treatment Note Next Visit Plan advance ROM & scap stability as pt tolerates
--- NOTE | 2018-12-25 18:25 | PT.OTN ---
Current Diagnoses Stiffness of unspecified joint, not elsewhere classified (12/25/18) Stiffness of right shoulder, not elsewhere classified (12/25/18) Cervical disc disorder, unspecified, unspecified cervical region (12/25/18) Radiculopathy, cervical region (12/25/18) Muscle weakness (generalized) (12/25/18) Abnormal posture (12/25/18) Physical Therapy Treatment Note PT-OP-A Visit Information Start: 11/18/18 17:47 Freq: Status: Active Protocol: Document 12/25/18 15:16 HH (Rec: 12/25/18 18:25 HH [email or web address]) Out-Patient Physical Therapy Visit Information Visit Information Visit Type Treatment Note Visit Start Time 15:16 Visit Stop Time 16:00 Total Visit Minutes 44 Visit Number 7 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 Pt reports that he has been diagnosed with cervical DJD, however at the moment, his neck is feeling pretty good. He still has increased pain in his right shoulder radiating to his mid-upper arm. Pt reports his cervical pain frequently makes him dizzy, and between that and the arm pain, he has not been driving. Pt's history is complicated by an ongoing hernia which has undergone three failed surgical repairs and causes him extreme pain as well. Pt reports his shoulder has limited mobility, which prevents him from performing any task which requires him to even lift his arm up to chest height. Prior Treatments and Tests Cervical X-ray: 1. Multilevel degenerative disease. 2. Mild to moderate C4-C5, C5-C6 and C6-C7 central canal narrowing. Mild C3-C4 central canal narrowing. 3. Mild to moderate bilateral C5-C6 neural foraminal narrowing. Mild bilateral C6-C7 neural foraminal narrowing. Mild left C3-C4 neural foraminal narrowing. 4. No neural impingement. IV reversal of normal cervical spine curvature. Per: Sindhu Watt MD, PhD on 09/17/2018 Treatment Goals Patient/Caregiver Goals I really just want to get rid of the pain. PT-OP-C Subjective Start: 11/18/18 17:47 Freq: Status: Active Protocol: Document 12/25/18 15:16 HH (Rec: 12/25/18 18:25 HH [email or web address]) OP-PT Subjective Patient Comments Patient Comments Neck pain has improved but still lots of pain at R arm. End range for R cervical rotation is still difficult sometimes. PT-OP-F Manual Assessment Start: 11/18/18 17:47 Freq: Status: Active Protocol: Document 11/18/18 13:45 DCW (Rec: 11/19/18 16:55 DCW [id number]) Manual Assessments Soft Tissue Assessment Soft Tissue Mobility Assessment Moderate tone, tenderness to palpation 3/4 wincing and withdraw at right upper trap, right levator, right biceps tendon, bilateral suboccipitals Joint Mobility Assessment Joint Mobility Assessment Significant crepitus, limited ROM of right shoulder joint, pain with both AROM and PROM PT-OP-J Posture/Palpation/Skin Start: 11/19/18 16:55 Freq: Status: Active Protocol: Document 11/18/18 13:45 DCW (Rec: 11/19/18 16:56 DCW [id number]) Posture Evaluation Position Sitting Shoulder Posture (L) Forward Scapula Posture (L) Protracted (L) Rotated Down (L) Depressed PT-OP-K Range of Motion Start: 11/18/18 17:47 Freq: Status: Active Protocol: Document 11/18/18 13:45 DCW (Rec: 11/19/18 16:55 DCW [id number]) Cervical Spine Range of Motion Cervical Spine Active Degrees Testing Position Sitting Flexion 50 Extension 30 Rotation Left 48 Rotation Right 37 Lateral Flexion Left 30 Lateral Flexion Right 25 ROM Limitations Soft Tissue Tightness Bony Restriction Muscle Tone Pain Shoulder Goniometric Range of Motion Shoulder Right Passive Shoulder ROM WFL No Testing Position Sitting Flexion 57 Abduction 52 External Rotation at 0 degrees Abduction 70 Right Active Testing Position Sitting Flexion 50 Abduction 43 Left Shoulder ROM WFL Yes PT-OP-L Special Tests Start: 11/18/18 17:47 Freq: Status: Active Protocol: Document 11/18/18 13:45 DCW (Rec: 11/19/18 16:55 DCW [id number]) Special Tests Cervical Spine Special Tests Passive Neck Flexion Test Results Positive R Spurling's Test Test Results Positive R Traction Test Results Mild improvement Foraminal Compression Test Results Positive R Shoulder Special Tests Passive ER Rotator Cuff Test Results Positive R Lift-Off Rotator Cuff Test Results Unable to position arm Cooney David Impingement Test Results Positive R Empty Can Test Results Unable to position arm Drop Arm Rotator Cuff Test Results Unable to position arm Belly Press Test Results Positive R AC Joint Compression Test Results Positive R PT-OP-M Strength Start: 11/18/18 17:47 Freq: Status: Active Protocol: Document 11/18/18 13:45 DCW (Rec: 11/19/18 16:55 DCW [id number]) Shoulder Strength Shoulder Manual Muscle Testing Left Flexion 2+ Poor+ Abduction (C5) 2+ Poor+ External Rotation 3 Fair PT-OP-Q Treatments Start: 11/18/18 17:47 Freq: Status: Active Protocol: Document 12/25/18 15:16 HH (Rec: 12/25/18 18:25 HH [email or web address]) Therapeutic Exercises Sitting Exercises shd press Side bilateral Equipment Used bar Reps/Minutes 10 x 2 shd ext Side bilateral Equipment Used bar Reps/Minutes 10 x2 AAROM Sitting Exercise Name Pulleys - Flexion Side bilateral stretch Sitting Exercise Name UT Side right Reps/Minutes 30 sec Comments not left d/t painful with R SB Standing Exercises wall [place] Standing Exercise Name shd [place] Side bilateral Comments before painful point. Manual Therapy Treatment Soft Tissue Mobilization pec Mobilization Type Sustained Pressure Trigger Point Release Intensity/Depth Moderate Body Position Supine 1 Body Location Upper traps, Paracervicals, LS , scalenes Mobilization Type Myofascial Release Rolling Sustained Pressure Intensity/Depth Moderate Body Position Supine Comments depth superficial to moderate Joint Mobilizations GH Joint R Direction distraction, post, inf Grade I Manual Traction Cervical Body Position Supine Reps/Duration 20 secs x 4 PT-OP-R Modalities Start: 11/18/18 17:47 Freq: Status: Active Protocol: Document 12/23/18 16:45 DCW (Rec: 12/23/18 17:16 DCW [id number]) Electric Stimulation Electric Stimulation Interferential Current (IFC) Body Location R shoulder Duration (Minutes) 15 Intensity 14 Cycle Continuous Patient Position Hooklying Combined With Heat/Cold Cold Pack PT-OP-T Assessment and Plan Start: 11/18/18 17:47 Freq: Status: Active Protocol: Document 12/25/18 15:16 HH (Rec: 12/25/18 18:25 [email or web address]) Physical Therapy Assessment Goals Four Impairment Restricted shoulder mobility Breaker Hand Goal (LTG) Pt to improve active shoulder ROM to 100? in both flexion and abduction LTG Duration 01/19/19 Three Impairment Poor positioning of right scapula Breaker Hand Goal (LTG) Pt's right scapular positioning equal to left scapula LTG Duration 01/19/19 Two Impairment Pt unable to drive due to increased shoulder and neck pain Breaker Hand Goal (LTG) Pt to drive to [place] and back with no increased cervical or shoulder pain LTG Duration 01/19/19 One Impairment Pt does not have an appropriate home exercise program Short Term Goal (STG) Pt to be independent and compliant with an appropriate HEP STG Duration 12/19/18 Assessment Summary Assessment Pt's pain is somewhat inconsistent. He denies pain during satinder and shoulder press with PVC, along with full ROM, but he did have significant pain during supine shd flexion and wall [place]. Physical Therapy Plan Next Visit Focus/Plan Next Note Type Treatment Note Next Visit Plan advance ROM & scap stability as pt tolerates
--- NOTE | 2018-12-31 18:09 | PT.OTN ---
Current Diagnoses Stiffness of unspecified joint, not elsewhere classified (12/31/18) Stiffness of right shoulder, not elsewhere classified (12/31/18) Cervical disc disorder, unspecified, unspecified cervical region (12/31/18) Radiculopathy, cervical region (12/31/18) Muscle weakness (generalized) (12/31/18) Abnormal posture (12/31/18) Physical Therapy Treatment Note PT-OP-A Visit Information Start: 11/18/18 17:47 Freq: Status: Active Protocol: Document 12/31/18 15:20 HH (Rec: 12/31/18 18:09 HH [email or web address]) Out-Patient Physical Therapy Visit Information Visit Information Visit Type Treatment Note Visit Start Time 15:20 Visit Stop Time 16:04 Total Visit Minutes 44 Visit Number 8 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 Pt reports that he has been diagnosed with cervical DJD, however at the moment, his neck is feeling pretty good. He still has increased pain in his right shoulder radiating to his mid-upper arm. Pt reports his cervical pain frequently makes him dizzy, and between that and the arm pain, he has not been driving. Pt's history is complicated by an ongoing hernia which has undergone three failed surgical repairs and causes him extreme pain as well. Pt reports his shoulder has limited mobility, which prevents him from performing any task which requires him to even lift his arm up to chest height. Prior Treatments and Tests Cervical X-ray: 1. Multilevel degenerative disease. 2. Mild to moderate C4-C5, C5-C6 and C6-C7 central canal narrowing. Mild C3-C4 central canal narrowing. 3. Mild to moderate bilateral C5-C6 neural foraminal narrowing. Mild bilateral C6-C7 neural foraminal narrowing. Mild left C3-C4 neural foraminal narrowing. 4. No neural impingement. IV reversal of normal cervical spine curvature. Per: Sindhu Watt MD, PhD on 09/17/2018 Treatment Goals Patient/Caregiver Goals I really just want to get rid of the pain. PT-OP-C Subjective Start: 11/18/18 17:47 Freq: Status: Active Protocol: Document 12/31/18 15:20 HH (Rec: 12/31/18 18:09 HH [email or web address]) OP-PT Subjective Patient Comments Patient Comments pt c/o increased shd pain after last visit but neck remains quite good. PT-OP-F Manual Assessment Start: 11/18/18 17:47 Freq: Status: Active Protocol: Document 11/18/18 13:45 DCW (Rec: 11/19/18 16:55 DCW [id number]) Manual Assessments Soft Tissue Assessment Soft Tissue Mobility Assessment Moderate tone, tenderness to palpation 3/4 wincing and withdraw at right upper trap, right levator, right biceps tendon, bilateral suboccipitals Joint Mobility Assessment Joint Mobility Assessment Significant crepitus, limited ROM of right shoulder joint, pain with both AROM and PROM PT-OP-J Posture/Palpation/Skin Start: 11/19/18 16:55 Freq: Status: Active Protocol: Document 11/18/18 13:45 DCW (Rec: 11/19/18 16:56 DCW [id number]) Posture Evaluation Position Sitting Shoulder Posture (L) Forward Scapula Posture (L) Protracted (L) Rotated Down (L) Depressed PT-OP-K Range of Motion Start: 11/18/18 17:47 Freq: Status: Active Protocol: Document 11/18/18 13:45 DCW (Rec: 11/19/18 16:55 DCW [id number]) Cervical Spine Range of Motion Cervical Spine Active Degrees Testing Position Sitting Flexion 50 Extension 30 Rotation Left 48 Rotation Right 37 Lateral Flexion Left 30 Lateral Flexion Right 25 ROM Limitations Soft Tissue Tightness Bony Restriction Muscle Tone Pain Shoulder Goniometric Range of Motion Shoulder Right Passive Shoulder ROM WFL No Testing Position Sitting Flexion 57 Abduction 52 External Rotation at 0 degrees Abduction 70 Right Active Testing Position Sitting Flexion 50 Abduction 43 Left Shoulder ROM WFL Yes PT-OP-L Special Tests Start: 11/18/18 17:47 Freq: Status: Active Protocol: Document 11/18/18 13:45 DCW (Rec: 11/19/18 16:55 DCW [id number]) Special Tests Cervical Spine Special Tests Passive Neck Flexion Test Results Positive R Spurling's Test Test Results Positive R Traction Test Results Mild improvement Foraminal Compression Test Results Positive R Shoulder Special Tests Passive ER Rotator Cuff Test Results Positive R Lift-Off Rotator Cuff Test Results Unable to position arm Cooney David Impingement Test Results Positive R Empty Can Test Results Unable to position arm Drop Arm Rotator Cuff Test Results Unable to position arm Belly Press Test Results Positive R AC Joint Compression Test Results Positive R PT-OP-M Strength Start: 11/18/18 17:47 Freq: Status: Active Protocol: Document 11/18/18 13:45 DCW (Rec: 11/19/18 16:55 DCW [id number]) Shoulder Strength Shoulder Manual Muscle Testing Left Flexion 2+ Poor+ Abduction (C5) 2+ Poor+ External Rotation 3 Fair PT-OP-Q Treatments Start: 11/18/18 17:47 Freq: Status: Active Protocol: Document 12/31/18 15:20 HH (Rec: 12/31/18 18:09 HH [email or web address]) Therapeutic Exercises Sitting Exercises shd press Side bilateral Equipment Used bar Reps/Minutes 10 x 2 shd ext Side bilateral Equipment Used bar Reps/Minutes 10 x2 AAROM Sitting Exercise Name Pulleys - Flexion/ abd Side bilateral Reps/Minutes 5 mins Comments AAROM Standing Exercises isometric 4 ways Standing Exercise Name fl/abd/ER/IR Side bilateral Reps/Minutes 10 secs hold x 4 shd extension Side bilateral Equipment Used level 1 Reps/Minutes 10 x2 Comments cues on scap depression wall climb Side right Reps/Minutes 10 x2 Comments cues on eccentric control scap retraction Side bilateral Equipment Used level 1 Reps/Minutes 10 x2 Comments cues on scap depression PT-OP-R Modalities Start: 11/18/18 17:47 Freq: Status: Active Protocol: Document 12/23/18 16:45 DCW (Rec: 12/23/18 17:16 DCW [id number]) Electric Stimulation Electric Stimulation Interferential Current (IFC) Body Location R shoulder Duration (Minutes) 15 Intensity 14 Cycle Continuous Patient Position Hooklying Combined With Heat/Cold Cold Pack PT-OP-T Assessment and Plan Start: 11/18/18 17:47 Freq: Status: Active Protocol: Document 12/31/18 15:20 HH (Rec: 12/31/18 18:09 [email or web address]) Physical Therapy Assessment Goals Four Impairment Restricted shoulder mobility Cooper Apprentice Goal (LTG) Pt to improve active shoulder ROM to 100? in both flexion and abduction LTG Duration 01/19/19 Three Impairment Poor positioning of right scapula Cooper Apprentice Goal (LTG) Pt's right scapular positioning equal to left scapula LTG Duration 01/19/19 Two Impairment Pt unable to drive due to increased shoulder and neck pain Cooper Apprentice Goal (LTG) Pt to drive to [place] with no increased cervical or shoulder pain LTG Duration 01/19/19 One Impairment Pt does not have an appropriate home exercise program Short Term Goal (STG) Pt to be independent and compliant with an appropriate HEP STG Duration 12/19/18 Assessment Summary Assessment Pt's shd pain has increased since last visit. However, he does not c/o pain with supported/ AAROM and AROM with shd extension/scap retraction . Physical Therapy Plan Next Visit Focus/Plan Next Note Type Treatment Note Next Visit Plan cont AAROM in gravity position for flexion/ abd AROM for extension scap stability as pt valery
--- NOTE | 2019-01-09 17:59 | PT.OTN ---
Current Diagnoses Stiffness of unspecified joint, not elsewhere classified (01/09/19) Stiffness of right shoulder, not elsewhere classified (01/09/19) Cervical disc disorder, unspecified, unspecified cervical region (01/09/19) Radiculopathy, cervical region (01/09/19) Muscle weakness (generalized) (01/09/19) Abnormal posture (01/09/19) Physical Therapy Treatment Note PT-OP-A Visit Information Start: 11/18/18 17:47 Freq: Status: Active Protocol: Document 01/09/19 14:30 AR (Rec: 01/09/19 16:07 AR [id number]) Out-Patient Physical Therapy Visit Information Visit Information Visit Type Treatment Note Visit Start Time 14:35 Visit Stop Time 15:15 Total Visit Minutes 40 Visit Number 9 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 Pt reports that he has been diagnosed with cervical DJD, however at the moment, his neck is feeling pretty good. He still has increased pain in his right shoulder radiating to his mid-upper arm. Pt reports his cervical pain frequently makes him dizzy, and between that and the arm pain, he has not been driving. Pt's history is complicated by an ongoing hernia which has undergone three failed surgical repairs and causes him extreme pain as well. Pt reports his shoulder has limited mobility, which prevents him from performing any task which requires him to even lift his arm up to chest height. Prior Treatments and Tests Cervical X-ray: 1. Multilevel degenerative disease. 2. Mild to moderate C4-C5, C5-C6 and C6-C7 central canal narrowing. Mild C3-C4 central canal narrowing. 3. Mild to moderate bilateral C5-C6 neural foraminal narrowing. Mild bilateral C6-C7 neural foraminal narrowing. Mild left C3-C4 neural foraminal narrowing. 4. No neural impingement. IV reversal of normal cervical spine curvature. Per: Sindhu Watt MD, PhD on 09/17/2018 Treatment Goals Patient/Caregiver Goals I really just want to get rid of the pain. PT-OP-C Subjective Start: 11/18/18 17:47 Freq: Status: Active Protocol: Document 01/09/19 14:30 AR (Rec: 01/09/19 16:07 AR [id number]) OP-PT Subjective Patient Comments Patient Comments Pt reports his neck and R shoulder are in a lot of pain today and he believes it is related to his court case for disability that was held yesterday, which was stressful for him. Pt does not believe that doing a lot of exercises and pushing through the pain have been helpful. He believes that manual therapy was helpful when he first began therapy. PT-OP-F Manual Assessment Start: 11/18/18 17:47 Freq: Status: Active Protocol: Document 11/18/18 13:45 DCW (Rec: 11/19/18 16:55 DCW [id number]) Manual Assessments Soft Tissue Assessment Soft Tissue Mobility Assessment Moderate tone, tenderness to palpation 3/4 wincing and withdraw at right upper trap, right levator, right biceps tendon, bilateral suboccipitals Joint Mobility Assessment Joint Mobility Assessment Significant crepitus, limited ROM of right shoulder joint, pain with both AROM and PROM PT-OP-J Posture/Palpation/Skin Start: 11/19/18 16:55 Freq: Status: Active Protocol: Document 11/18/18 13:45 DCW (Rec: 11/19/18 16:56 DCW [id number]) Posture Evaluation Position Sitting Shoulder Posture (L) Forward Scapula Posture (L) Protracted,(L) Rotated Down,(L) Depressed PT-OP-K Range of Motion Start: 11/18/18 17:47 Freq: Status: Active Protocol: Document 11/18/18 13:45 DCW (Rec: 11/19/18 16:55 DCW [id number]) Cervical Spine Range of Motion Cervical Spine Active Degrees Testing Position Sitting Flexion 50 Extension 30 Rotation Left 48 Rotation Right 37 Lateral Flexion Left 30 Lateral Flexion Right 25 ROM Limitations Soft Tissue Tightness,Bony Restriction,Muscle Tone,Pain Shoulder Goniometric Range of Motion Shoulder Right Passive Shoulder ROM WFL No Testing Position Sitting Flexion 57 Abduction 52 External Rotation at 0 degrees Abduction 70 Right Active Testing Position Sitting Flexion 50 Abduction 43 Left Shoulder ROM WFL Yes PT-OP-L Special Tests Start: 11/18/18 17:47 Freq: Status: Active Protocol: Document 11/18/18 13:45 DCW (Rec: 11/19/18 16:55 DCW [id number]) Special Tests Cervical Spine Special Tests Passive Neck Flexion Test Results Positive R Spurling's Test Test Results Positive R Traction Test Results Mild improvement Foraminal Compression Test Results Positive R Shoulder Special Tests Passive ER Rotator Cuff Test Results Positive R Lift-Off Rotator Cuff Test Results Unable to position arm Cooney David Impingement Test Results Positive R Empty Can Test Results Unable to position arm Drop Arm Rotator Cuff Test Results Unable to position arm Belly Press Test Results Positive R AC Joint Compression Test Results Positive R PT-OP-M Strength Start: 11/18/18 17:47 Freq: Status: Active Protocol: Document 11/18/18 13:45 DCW (Rec: 11/19/18 16:55 DCW [id number]) Shoulder Strength Shoulder Manual Muscle Testing Left Flexion 2+ Poor+ Abduction (C5) 2+ Poor+ External Rotation 3 Fair PT-OP-Q Treatments Start: 11/18/18 17:47 Freq: Status: Active Protocol: Document 01/09/19 14:30 AR (Rec: 01/09/19 17:43 AR [id number]) Therapeutic Exercises Supine Exercises 3 Supine Exercise Name chest press Side bilateral Resistance red bar Reps/Minutes 10 reps Comments pt reported pain after 10 reps 2 Supine Exercise Name shoulder flexion Side bilateral Resistance AAROM w red bar Reps/Minutes 10 reps Comments pt reported pain, exercise stopped Therapeutic Activity Therapeutic Activity diaphragmatic breathing Name diaphragmatic breathing for relaxation Reps/Minutes 12 minutes Comments used to address pt's reports of inc pain with stressful situations d/t chronic pain. pt was heavily educated on implementing breathing technique into daily activities that are stressful and educated on parasympathetic nervous system effects. done in supine and reclined sitting position Manual Therapy Treatment Soft Tissue Mobilization 1 Body Location Upper traps, cervical paraspinals, lev scap, scalenes Mobilization Type Myofascial Release,Rolling, Sustained Pressure Intensity/Depth Moderate Body Position Sitting Comments pt prefers reclined sitting position. depth superficial to moderate Joint Mobilizations GH Joint R Direction distraction, inf Grade I Manual Techniques 1 Type PROM and stretching shoulder ER/ABD Body Position Supine Self-Care/Home Management Treatment Education Patient Education Pain Management Other Education pt given brief pain neuroscience education regarding stress effects on pain. laterality was also discussed and pt was encouraged to incoporate into HEP. finding and circling all R arms in magazines and using [employer] zander to work on quickly identifying R vs L PT-OP-R Modalities Start: 11/18/18 17:47 Freq: Status: Active Protocol: Document 12/23/18 16:45 DCW (Rec: 12/23/18 17:16 DCW [id number]) Electric Stimulation Electric Stimulation Interferential Current (IFC) Body Location R shoulder Duration (Minutes) 15 Intensity 14 Cycle Continuous Patient Position Hooklying Combined With Heat/Cold Cold Pack PT-OP-T Assessment and Plan Start: 11/18/18 17:47 Freq: Status: Active Protocol: Document 01/09/19 14:30 AR (Rec: 01/09/19 17:43 AR [id number]) Physical Therapy Assessment Goals Four Impairment Restricted shoulder mobility Plasterer Helper Goal (LTG) Pt to improve active shoulder ROM to 100? in both flexion and abduction LTG Duration 01/19/19 Three Impairment Poor positioning of right scapula Alf Goal (LTG) Pt's right scapular positioning equal to left scapula LTG Duration 01/19/19 Two Impairment Pt unable to drive due to increased shoulder and neck pain Alf Goal (LTG) Pt to drive to [place] and back with no increased cervical or shoulder pain LTG Duration 01/19/19 One Impairment Pt does not have an appropriate home exercise program Short Term Goal (STG) Pt to be independent and compliant with an appropriate HEP STG Duration 12/19/18 Assessment Summary Assessment Pt was in a lot of pain after last visit and does not believe that lots of exercises is beneficial for his shoulder. Time was spent today educating patient on pain neuroscience and gentle manual therapy to address restrictions in GH joint and cervical spine. Diaphragmatic breathing was also taught and pt was very receptive to it. Physical Therapy Plan Frequency and Duration Frequency of Treatment 2x/Week Duration of Treatment 12 weeks Plan of Care Start Date 11/18/18 Plan of Care End Date 02/17/19 Next Visit Focus/Plan Next Note Type Treatment Note Next Visit Plan exercises in reclined sitting position (pt prefers). manual therapy as needed. cont to incoporate deep breathing into exercises to dec guarding. progress AAROM in gravity position for flexion/ abd as tolerated.
--- NOTE | 2019-01-13 17:04 | PT.OTN ---
Current Diagnoses Stiffness of unspecified joint, not elsewhere classified (01/13/19) Stiffness of right shoulder, not elsewhere classified (01/13/19) Cervical disc disorder, unspecified, unspecified cervical region (01/13/19) Radiculopathy, cervical region (01/13/19) Muscle weakness (generalized) (01/13/19) Abnormal posture (01/13/19) Physical Therapy Treatment Note PT-OP-A Visit Information Start: 11/18/18 17:47 Freq: Status: Active Protocol: Document 01/13/19 16:41 AW (Rec: 01/13/19 17:04 AW [id number]) Out-Patient Physical Therapy Visit Information Visit Information Visit Type Treatment Note Visit Start Time 16:00 Visit Stop Time 16:40 Total Visit Minutes 40 Visit Number 10 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 Pt reports that he has been diagnosed with cervical DJD, however at the moment, his neck is feeling pretty good. He still has increased pain in his right shoulder radiating to his mid-upper arm. Pt reports his cervical pain frequently makes him dizzy, and between that and the arm pain, he has not been driving. Pt's history is complicated by an ongoing hernia which has undergone three failed surgical repairs and causes him extreme pain as well. Pt reports his shoulder has limited mobility, which prevents him from performing any task which requires him to even lift his arm up to chest height. Prior Treatments and Tests Cervical X-ray: 1. Multilevel degenerative disease. 2. Mild to moderate C4-C5, C5-C6 and C6-C7 central canal narrowing. Mild C3-C4 central canal narrowing. 3. Mild to moderate bilateral C5-C6 neural foraminal narrowing. Mild bilateral C6-C7 neural foraminal narrowing. Mild left C3-C4 neural foraminal narrowing. 4. No neural impingement. IV reversal of normal cervical spine curvature. Per: Sindhu Watt MD, PhD on 09/17/2018 Treatment Goals Patient/Caregiver Goals I really just want to get rid of the pain. PT-OP-C Subjective Start: 11/18/18 17:47 Freq: Status: Active Protocol: Document 01/13/19 16:41 AW (Rec: 01/13/19 17:04 AW [id number]) OP-PT Subjective Patient Comments Patient Comments Pt reports he is having more pain in his neck than shoulder today and that he has been dealing with a lot of stress. He believes he has pushed through a lot of pain this week and that the activity has increased his pain. He inquired about practicing more diaphragmatic breathing. PT-OP-F Manual Assessment Start: 11/18/18 17:47 Freq: Status: Active Protocol: Document 11/18/18 13:45 DCW (Rec: 11/19/18 16:55 DCW [id number]) Manual Assessments Soft Tissue Assessment Soft Tissue Mobility Assessment Moderate tone, tenderness to palpation 3/4 wincing and withdraw at right upper trap, right levator, right biceps tendon, bilateral suboccipitals Joint Mobility Assessment Joint Mobility Assessment Significant crepitus, limited ROM of right shoulder joint, pain with both AROM and PROM PT-OP-J Posture/Palpation/Skin Start: 11/19/18 16:55 Freq: Status: Active Protocol: Document 11/18/18 13:45 DCW (Rec: 11/19/18 16:56 DCW [id number]) Posture Evaluation Position Sitting Shoulder Posture (L) Forward Scapula Posture (L) Protracted,(L) Rotated Down,(L) Depressed PT-OP-K Range of Motion Start: 11/18/18 17:47 Freq: Status: Active Protocol: Document 11/18/18 13:45 DCW (Rec: 11/19/18 16:55 DCW [id number]) Cervical Spine Range of Motion Cervical Spine Active Degrees Testing Position Sitting Flexion 50 Extension 30 Rotation Left 48 Rotation Right 37 Lateral Flexion Left 30 Lateral Flexion Right 25 ROM Limitations Soft Tissue Tightness,Bony Restriction,Muscle Tone,Pain Shoulder Goniometric Range of Motion Shoulder Right Passive Shoulder ROM WFL No Testing Position Sitting Flexion 57 Abduction 52 External Rotation at 0 degrees Abduction 70 Right Active Testing Position Sitting Flexion 50 Abduction 43 Left Shoulder ROM WFL Yes PT-OP-L Special Tests Start: 11/18/18 17:47 Freq: Status: Active Protocol: Document 11/18/18 13:45 DCW (Rec: 11/19/18 16:55 DCW [id number]) Special Tests Cervical Spine Special Tests Passive Neck Flexion Test Results Positive R Spurling's Test Test Results Positive R Traction Test Results Mild improvement Foraminal Compression Test Results Positive R Shoulder Special Tests Passive ER Rotator Cuff Test Results Positive R Lift-Off Rotator Cuff Test Results Unable to position arm Cooney David Impingement Test Results Positive R Empty Can Test Results Unable to position arm Drop Arm Rotator Cuff Test Results Unable to position arm Belly Press Test Results Positive R AC Joint Compression Test Results Positive R PT-OP-M Strength Start: 11/18/18 17:47 Freq: Status: Active Protocol: Document 11/18/18 13:45 DCW (Rec: 11/19/18 16:55 DCW [id number]) Shoulder Strength Shoulder Manual Muscle Testing Left Flexion 2+ Poor+ Abduction (C5) 2+ Poor+ External Rotation 3 Fair PT-OP-Q Treatments Start: 11/18/18 17:47 Freq: Status: Active Protocol: Document 01/13/19 16:41 AW (Rec: 01/13/19 17:04 AW [id number]) Therapeutic Exercises Supine Exercises 2 Supine Exercise Name shoulder flexion, scaption Side bilateral Resistance AAROM w red bar Equipment Used back of plinth raised ~45 degrees for comfort Reps/Minutes 3x10 reps Comments pt reported pain with 1st set, followed by MT, last sets with less pain Therapeutic Activity Therapeutic Activity diaphragmatic breathing Name diaphragmatic breathing for relaxation Reps/Minutes 9 minutes Comments Pt attempted to incorporate breathing technique during passive mobility and AAROM, but required dedicated time to master technique Manual Therapy Treatment Soft Tissue Mobilization 1 Body Location Upper traps, cervical paraspinals, lev scap, scalenes Mobilization Type Myofascial Release,Rolling, Sustained Pressure Intensity/Depth Superficial Body Position Sitting Comments Pt in 45 degree reclined position for comfort. Highly irritable upper traps and cervical paraspinals. Superficial depth used for pain control/desensitization. Joint Mobilizations GH Joint R GH Direction long axis distraction, inferior glide Grade I Body Position Sitting Reps/Duration 5 min Comments Pt complains of elbow pain possibly related to handhold on humerus. Reduced reactivity noted with more proximal handhold Manual Techniques 1 Type PROM and stretching shoulder ER/ABD Body Position Sitting Reps/Duration 4 minutes Comments long axis distraction and oscillation combined with passive flexion, abduction, ER , IR. Pt in semi-reclined position for comfort. Self-Care/Home Management Treatment Education Patient Education Pain Management Other Education Reviewed diaphragmatic breathing techniques along with rationale of quieting the parasympathetic nervous system. PT-OP-R Modalities Start: 11/18/18 17:47 Freq: Status: Active Protocol: Document 12/23/18 16:45 DCW (Rec: 12/23/18 17:16 DCW [id number]) Electric Stimulation Electric Stimulation Interferential Current (IFC) Body Location R shoulder Duration (Minutes) 15 Intensity 14 Cycle Continuous Patient Position Hooklying Combined With Heat/Cold Cold Pack PT-OP-T Assessment and Plan Start: 11/18/18 17:47 Freq: Status: Active Protocol: Document 01/13/19 16:41 AW (Rec: 01/13/19 17:04 AW [id number]) Physical Therapy Assessment Goals Four Impairment Restricted shoulder mobility Station Inspector Goal (LTG) Pt to improve active shoulder ROM to 100? in both flexion and abduction LTG Duration 01/19/19 Three Impairment Poor positioning of right scapula Station Inspector Goal (LTG) Pt's right scapular positioning equal to left scapula LTG Duration 01/19/19 Two Impairment Pt unable to drive due to increased shoulder and neck pain [facility] Goal (LTG) Pt to drive to [place] and back with no increased cervical or shoulder pain LTG Duration 01/19/19 One Impairment Pt does not have an appropriate home exercise program Short Term Goal (STG) Pt to be independent and compliant with an appropriate HEP STG Duration 12/19/18 Assessment Summary Assessment Pt believes he benefits most from manual therapy, but is also open to physioligical quieting techniques. Today's session consisted of right shoulder joint mobilizations and STM followed by attempts at AAROM into flexion and abduction. Pt was highly irritable at first. After passive mobility, pt was able to gain AAROM in flexion up to ~100 degrees. Physical Therapy Plan Frequency and Duration Frequency of Treatment 2x/Week Duration of Treatment 12 weeks Plan of Care Start Date 11/18/18 Plan of Care End Date 02/17/19 Next Visit Focus/Plan Next Note Type Treatment Note Next Visit Plan continue with physiological quieting. plan to advance AAROM to fully upright against gravity in flexion and abduction as tolerated. Alternatively, decrease angle of recline so pt is sitting closer to upright
--- NOTE | 2019-01-15 18:04 | PT.OTN ---
Current Diagnoses Stiffness of unspecified joint, not elsewhere classified (01/15/19) Stiffness of right shoulder, not elsewhere classified (01/15/19) Cervical disc disorder, unspecified, unspecified cervical region (01/15/19) Radiculopathy, cervical region (01/15/19) Muscle weakness (generalized) (01/15/19) Abnormal posture (01/15/19) Physical Therapy Treatment Note PT-OP-A Visit Information Start: 11/18/18 17:47 Freq: Status: Active Protocol: Document 01/15/19 16:00 HH (Rec: 01/15/19 18:04 HH [email or web address]) Out-Patient Physical Therapy Visit Information Visit Information Visit Type Treatment Note Visit Start Time 16:00 Visit Stop Time 16:45 Total Visit Minutes 45 Visit Number 11 Number of TEST AUTOMATION ARCHITECT Visits 0 PT-OP-B Current Condition Start: 11/18/18 17:47 Freq: Status: Active Protocol: Document 11/18/18 13:45 DCW (Rec: 11/19/18 16:55 DCW [id number]) Current Condition History of Current Condition Onset Date 2 year history Current Complaints Cervical and right shoulder/ arm pain and stiffness History of Current Condition Pt is a 48 year old male presenting with a two year history of neck and right shoulder/arm pain. Pt reports that he has been diagnosed with cervical DJD, however at the moment, his neck is feeling pretty good. He still has increased pain in his right shoulder radiating to his mid-upper arm. Pt reports his cervical pain frequently makes him dizzy, and between that and the arm pain, he has not been driving. Pt's history is complicated by an ongoing hernia which has undergone three failed surgical repairs and causes him extreme pain as well. Pt reports his shoulder has limited mobility, which prevents him from performing any task which requires him to even lift his arm up to chest height. Prior Treatments and Tests Cervical X-ray: 1. Multilevel degenerative disease. 2. Mild to moderate C4-C5, C5-C6 and C6-C7 central canal narrowing. Mild C3-C4 central canal narrowing. 3. Mild to moderate bilateral C5-C6 neural foraminal narrowing. Mild bilateral C6-C7 neural foraminal narrowing. Mild left C3-C4 neural foraminal narrowing. 4. No neural impingement. IV reversal of normal cervical spine curvature. Per: Sindhu Watt MD, PhD on 09/17/2018 Treatment Goals Patient/Caregiver Goals I really just want to get rid of the pain. PT-OP-C Subjective Start: 11/18/18 17:47 Freq: Status: Active Protocol: Document 01/15/19 16:00 HH (Rec: 01/15/19 18:04 HH [email or web address]) OP-PT Subjective Patient Comments Patient Comments Pt stated his shoulders still have a lot of pain after manual therapy. His neck pain started coming back since last weekend and doesnt know why. He also stated that He's been stressful for the past week. PT-OP-F Manual Assessment Start: 11/18/18 17:47 Freq: Status: Active Protocol: Document 11/18/18 13:45 DCW (Rec: 11/19/18 16:55 DCW [id number]) Manual Assessments Soft Tissue Assessment Soft Tissue Mobility Assessment Moderate tone, tenderness to palpation 3/4 wincing and withdraw at right upper trap, right levator, right biceps tendon, bilateral suboccipitals Joint Mobility Assessment Joint Mobility Assessment Significant crepitus, limited ROM of right shoulder joint, pain with both AROM and PROM PT-OP-J Posture/Palpation/Skin Start: 11/19/18 16:55 Freq: Status: Active Protocol: Document 11/18/18 13:45 DCW (Rec: 11/19/18 16:56 DCW [id number]) Posture Evaluation Position Sitting Shoulder Posture (L) Forward Scapula Posture (L) Protracted,(L) Rotated Down,(L) Depressed PT-OP-K Range of Motion Start: 11/18/18 17:47 Freq: Status: Active Protocol: Document 11/18/18 13:45 DCW (Rec: 11/19/18 16:55 DCW [id number]) Cervical Spine Range of Motion Cervical Spine Active Degrees Testing Position Sitting Flexion 50 Extension 30 Rotation Left 48 Rotation Right 37 Lateral Flexion Left 30 Lateral Flexion Right 25 ROM Limitations Soft Tissue Tightness,Bony Restriction,Muscle Tone,Pain Shoulder Goniometric Range of Motion Shoulder Right Passive Shoulder ROM WFL No Testing Position Sitting Flexion 57 Abduction 52 External Rotation at 0 degrees Abduction 70 Right Active Testing Position Sitting Flexion 50 Abduction 43 Left Shoulder ROM WFL Yes PT-OP-L Special Tests Start: 11/18/18 17:47 Freq: Status: Active Protocol: Document 11/18/18 13:45 DCW (Rec: 11/19/18 16:55 DCW [id number]) Special Tests Cervical Spine Special Tests Passive Neck Flexion Test Results Positive R Spurling's Test Test Results Positive R Traction Test Results Mild improvement Foraminal Compression Test Results Positive R Shoulder Special Tests Passive ER Rotator Cuff Test Results Positive R Lift-Off Rotator Cuff Test Results Unable to position arm Cooney David Impingement Test Results Positive R Empty Can Test Results Unable to position arm Drop Arm Rotator Cuff Test Results Unable to position arm Belly Press Test Results Positive R AC Joint Compression Test Results Positive R PT-OP-M Strength Start: 11/18/18 17:47 Freq: Status: Active Protocol: Document 11/18/18 13:45 DCW (Rec: 11/19/18 16:55 DCW [id number]) Shoulder Strength Shoulder Manual Muscle Testing Left Flexion 2+ Poor+ Abduction (C5) 2+ Poor+ External Rotation 3 Fair PT-OP-Q Treatments Start: 11/18/18 17:47 Freq: Status: Active Protocol: Document 01/15/19 16:00 HH (Rec: 01/15/19 18:04 HH [email or web address]) Cardio Equipment Recumbent Stepper (Sci-Fit) Duration (Minutes) 8 Seat Position 6 Therapeutic Exercises Supine Exercises SA punch Side bilateral Equipment Used 1lb DB Reps/Minutes 10 x 2 3 Supine Exercise Name chest press Side bilateral Resistance red bar Equipment Used 1 lbs dB Reps/Minutes 10 reps 2 Supine Exercise Name shoulder flexion, scaption Side bilateral Resistance AAROM w red bar Reps/Minutes 2 x8 Comments pt reported pain with 1st set, followed by MT, last sets with less pain Sidelying Exercises SL ER Side right Equipment Used 1lb DB Reps/Minutes 8 x 2 Sitting Exercises AAROM Sitting Exercise Name OH satinder Side bilateral Reps/Minutes 5 mins Comments abd and flexion Manual Therapy Treatment Soft Tissue Mobilization 1 Body Location Upper traps, cervical paraspinals, lev scap, scalenes Mobilization Type Myofascial Release,Rolling, Sustained Pressure Intensity/Depth Superficial Body Position Sitting Comments in upright seated position Joint Mobilizations GH Joint R GH Direction long axis distraction, inferior glide Grade I Body Position Sitting Reps/Duration 5 min PT-OP-R Modalities Start: 11/18/18 17:47 Freq: Status: Active Protocol: Document 12/23/18 16:45 DCW (Rec: 12/23/18 17:16 DCW [id number]) Electric Stimulation Electric Stimulation Interferential Current (IFC) Body Location R shoulder Duration (Minutes) 15 Intensity 14 Cycle Continuous Patient Position Hooklying Combined With Heat/Cold Cold Pack PT-OP-T Assessment and Plan Start: 11/18/18 17:47 Freq: Status: Active Protocol: Document 01/15/19 16:00 HH (Rec: 01/15/19 18:04 HH [email or web address]) Physical Therapy Assessment Goals Four Impairment Restricted shoulder mobility [place] Goal (LTG) Pt to improve active shoulder ROM to 100? in both flexion and abduction LTG Duration 01/19/19 Three Impairment Poor positioning of right scapula Fpc Goal (LTG) Pt's right scapular positioning equal to left scapula LTG Duration 01/19/19 Two Impairment Pt unable to drive due to increased shoulder and neck pain Fpc Goal (LTG) Pt to drive to [place] and back with no increased cervical or shoulder pain LTG Duration 01/19/19 One Impairment Pt does not have an appropriate home exercise program Short Term Goal (STG) Pt to be independent and compliant with an appropriate HEP STG Duration 12/19/18 Assessment Summary Assessment Pt believes that PT has been helping him, but his pain comes spontaneously. Today focused on finding tolerable ROM, diaphragmatic breathing and STM on R and neck region. Pt feels relieved after. Physical Therapy Plan Next Visit Focus/Plan Next Note Type Treatment Note Next Visit Plan continue with physiological quieting. plan to advance AAROM to fully upright against gravity in flexion and abduction as tolerated. Alternatively, decrease angle of recline so pt is sitting closer to upright
--- NOTE | 2019-01-20 17:18 | PT.OTN ---
Current Diagnoses Stiffness of unspecified joint, not elsewhere classified (01/20/19) Stiffness of right shoulder, not elsewhere classified (01/20/19) Cervical disc disorder, unspecified, unspecified cervical region (01/20/19) Radiculopathy, cervical region (01/20/19) Muscle weakness (generalized) (01/20/19) Abnormal posture (01/20/19) Physical Therapy Treatment Note PT-OP-A Visit Information Start: 11/18/18 17:47 Freq: Status: Active Protocol: Document 01/20/19 17:00 AW (Rec: 01/20/19 17:16 AW [email or web address]) Out-Patient Physical Therapy Visit Information Visit Information Visit Type Treatment Note Visit Start Time 15:15 Visit Stop Time 15:54 Total Visit Minutes 39 Visit Number 12 Number of FLOORING MACHINE FEEDER Visits 0 PT-OP-B Current Condition Start: 11/18/18 17:47 Freq: Status: Active Protocol: Document 11/18/18 13:45 DCW (Rec: 11/19/18 16:55 DCW [id number]) Current Condition History of Current Condition Onset Date 2 year history Current Complaints Cervical and right shoulder/ arm pain and stiffness History of Current Condition Pt is a 48 year old male presenting with a two year history of neck and right shoulder/arm pain. Pt reports that he has been diagnosed with cervical DJD, however at the moment, his neck is feeling pretty good. He still has increased pain in his right shoulder radiating to his mid-upper arm. Pt reports his cervical pain frequently makes him dizzy, and between that and the arm pain, he has not been driving. Pt's history is complicated by an ongoing hernia which has undergone three failed surgical repairs and causes him extreme pain as well. Pt reports his shoulder has limited mobility, which prevents him from performing any task which requires him to even lift his arm up to chest height. Prior Treatments and Tests Cervical X-ray: 1. Multilevel degenerative disease. 2. Mild to moderate C4-C5, C5-C6 and C6-C7 central canal narrowing. Mild C3-C4 central canal narrowing. 3. Mild to moderate bilateral C5-C6 neural foraminal narrowing. Mild bilateral C6-C7 neural foraminal narrowing. Mild left C3-C4 neural foraminal narrowing. 4. No neural impingement. IV reversal of normal cervical spine curvature. Per: Sindhu Watt MD, PhD on 09/17/2018 Treatment Goals Patient/Caregiver Goals I really just want to get rid of the pain. PT-OP-C Subjective Start: 11/18/18 17:47 Freq: Status: Active Protocol: Document 01/20/19 17:00 AW (Rec: 01/20/19 17:16 AW [email or web address]) OP-PT Subjective Patient Comments Patient Comments Pt had a lot of soreness after last session. He got a lot of rest last weekend, however, and is feeling pretty good today. He even woke up before his alarm yesterday feeling well-rested and went to [facility] . PT-OP-F Manual Assessment Start: 11/18/18 17:47 Freq: Status: Active Protocol: Document 11/18/18 13:45 DCW (Rec: 11/19/18 16:55 DCW [id number]) Manual Assessments Soft Tissue Assessment Soft Tissue Mobility Assessment Moderate tone, tenderness to palpation 3/4 wincing and withdraw at right upper trap, right levator, right biceps tendon, bilateral suboccipitals Joint Mobility Assessment Joint Mobility Assessment Significant crepitus, limited ROM of right shoulder joint, pain with both AROM and PROM PT-OP-J Posture/Palpation/Skin Start: 11/19/18 16:55 Freq: Status: Active Protocol: Document 11/18/18 13:45 DCW (Rec: 11/19/18 16:56 DCW [id number]) Posture Evaluation Position Sitting Shoulder Posture (L) Forward Scapula Posture (L) Protracted,(L) Rotated Down,(L) Depressed PT-OP-K Range of Motion Start: 11/18/18 17:47 Freq: Status: Active Protocol: Document 11/18/18 13:45 DCW (Rec: 11/19/18 16:55 DCW [id number]) Cervical Spine Range of Motion Cervical Spine Active Degrees Testing Position Sitting Flexion 50 Extension 30 Rotation Left 48 Rotation Right 37 Lateral Flexion Left 30 Lateral Flexion Right 25 ROM Limitations Soft Tissue Tightness,Bony Restriction,Muscle Tone,Pain Shoulder Goniometric Range of Motion Shoulder Right Passive Shoulder ROM WFL No Testing Position Sitting Flexion 57 Abduction 52 External Rotation at 0 degrees Abduction 70 Right Active Testing Position Sitting Flexion 50 Abduction 43 Left Shoulder ROM WFL Yes PT-OP-L Special Tests Start: 11/18/18 17:47 Freq: Status: Active Protocol: Document 11/18/18 13:45 DCW (Rec: 11/19/18 16:55 DCW [id number]) Special Tests Cervical Spine Special Tests Passive Neck Flexion Test Results Positive R Spurling's Test Test Results Positive R Traction Test Results Mild improvement Foraminal Compression Test Results Positive R Shoulder Special Tests Passive ER Rotator Cuff Test Results Positive R Lift-Off Rotator Cuff Test Results Unable to position arm Cooney David Impingement Test Results Positive R Empty Can Test Results Unable to position arm Drop Arm Rotator Cuff Test Results Unable to position arm Belly Press Test Results Positive R AC Joint Compression Test Results Positive R PT-OP-M Strength Start: 11/18/18 17:47 Freq: Status: Active Protocol: Document 11/18/18 13:45 DCW (Rec: 11/19/18 16:55 DCW [id number]) Shoulder Strength Shoulder Manual Muscle Testing Left Flexion 2+ Poor+ Abduction (C5) 2+ Poor+ External Rotation 3 Fair PT-OP-Q Treatments Start: 11/18/18 17:47 Freq: Status: Active Protocol: Document 01/20/19 17:00 AW (Rec: 01/20/19 17:16 AW [email or web address]) Cardio Equipment Recumbent Elliptical (P[employer]) Duration (Minutes) 7 Resistance 4 Seat Position 11 Therapeutic Exercises Supine Exercises SA punch Supine Exercise Name SA punch Side bilateral Equipment Used 2# db Reps/Minutes 2x10 reps 2 Supine Exercise Name shoulder flexion, abduction Side right Resistance AAROM w red bar Equipment Used back of plinth raised to 70 deg for increased gravity challenge Reps/Minutes 2x10 reps each plane Comments pt tolerating more movement today with increased ROM in flexion 1 Supine Exercise Name shoulder flexion Side right Resistance AROM Equipment Used 70 deg plinth Reps/Minutes 2x10 reps Comments pt able to reach ~150 degrees actively without pain Sidelying Exercises SL ER Sidelying Exercise Name SL ER Side right Equipment Used 2# db Reps/Minutes 1x10 reps Comments pt complaint of increased pain ; exercise stopped 2 Sidelying Exercise Name SL abduction Side right Resistance 2# db Reps/Minutes 2x10 reps Comments cues for scapular depression/ retraction during elevation Sitting Exercises scapular mobility Sitting Exercise Name scapular mobility Side bilateral Reps/Minutes 2x10 reps each plane Comments AROM elevation/depression and retraction/protraction AAROM Sitting Exercise Name OH satinder Side bilateral Reps/Minutes 5 mins Comments abd and flexion; abduction to ~110 deg, flexion to ~150 deg Manual Therapy Treatment Soft Tissue Mobilization 1 Body Location Upper traps, cervical paraspinals, lev scap, scalenes Mobilization Type Myofascial Release,Rolling, Sustained Pressure Intensity/Depth Superficial Body Position Sitting Comments in upright seated position Joint Mobilizations GH Joint R GH Direction long axis distraction, inferior glide Grade II Body Position Sitting Reps/Duration 5 min PT-OP-R Modalities Start: 11/18/18 17:47 Freq: Status: Active Protocol: Document 12/23/18 16:45 DCW (Rec: 12/23/18 17:16 DCW [id number]) Electric Stimulation Electric Stimulation Interferential Current (IFC) Body Location R shoulder Duration (Minutes) 15 Intensity 14 Cycle Continuous Patient Position Hooklying Combined With Heat/Cold Cold Pack PT-OP-T Assessment and Plan Start: 11/18/18 17:47 Freq: Status: Active Protocol: Document 01/20/19 17:00 AW (Rec: 01/20/19 17:16 AW [email or web address]) Physical Therapy Assessment Goals Four Impairment Restricted shoulder mobility Detention Goal (LTG) Pt to improve active shoulder ROM to 100? in both flexion and abduction LTG Duration 01/19/19 Three Impairment Poor positioning of right scapula Body Joiner Goal (LTG) Pt's right scapular positioning equal to left scapula LTG Duration 01/19/19 Two Impairment Pt unable to drive due to increased shoulder and neck pain Body Joiner Goal (LTG) Pt to drive to [place] and back with no increased cervical or shoulder pain LTG Duration 01/19/19 One Impairment Pt does not have an appropriate home exercise program Short Term Goal (STG) Pt to be independent and compliant with an appropriate HEP STG Duration 12/19/18 Assessment Summary Assessment Pt reports decreased pain related to recent inactivity. Focused today on helping patient find safe range within to move without provoking symptoms. AAROM and AROM into flexion greatly improved since last visit. Physical Therapy Plan Next Visit Focus/Plan Next Note Type Treatment Note Next Visit Plan continue with physiological quieting. plan to advance AAROM to fully upright against gravity in flexion and abduction as tolerated (70 degrees today).
--- NOTE | 2019-01-28 16:20 | PT.OTN ---
Current Diagnoses Stiffness of unspecified joint, not elsewhere classified (01/28/19) Stiffness of right shoulder, not elsewhere classified (01/28/19) Cervical disc disorder, unspecified, unspecified cervical region (01/28/19) Radiculopathy, cervical region (01/28/19) Muscle weakness (generalized) (01/28/19) Abnormal posture (01/28/19) Physical Therapy Treatment Note PT-OP-A Visit Information Start: 11/18/18 17:47 Freq: Status: Active Protocol: Document 01/28/19 15:20 HH (Rec: 01/28/19 16:19 HH [email or web address]) Out-Patient Physical Therapy Visit Information Visit Information Visit Type Treatment Note Visit Start Time 15:20 Visit Stop Time 16:02 Total Visit Minutes 42 Visit Number 13 Number of PATIENT SCHEDULING MANAGER Visits 0 PT-OP-B Current Condition Start: 11/18/18 17:47 Freq: Status: Active Protocol: Document 11/18/18 13:45 DCW (Rec: 11/19/18 16:55 DCW [id number]) Current Condition History of Current Condition Onset Date 2 year history Current Complaints Cervical and right shoulder/ arm pain and stiffness History of Current Condition Pt is a 48 year old male presenting with a two year history of neck and right shoulder/arm pain. Pt reports that he has been diagnosed with cervical DJD, however at the moment, his neck is feeling pretty good. He still has increased pain in his right shoulder radiating to his mid-upper arm. Pt reports his cervical pain frequently makes him dizzy, and between that and the arm pain, he has not been driving. Pt's history is complicated by an ongoing hernia which has undergone three failed surgical repairs and causes him extreme pain as well. Pt reports his shoulder has limited mobility, which prevents him from performing any task which requires him to even lift his arm up to chest height. Prior Treatments and Tests Cervical X-ray: 1. Multilevel degenerative disease. 2. Mild to moderate C4-C5, C5-C6 and C6-C7 central canal narrowing. Mild C3-C4 central canal narrowing. 3. Mild to moderate bilateral C5-C6 neural foraminal narrowing. Mild bilateral C6-C7 neural foraminal narrowing. Mild left C3-C4 neural foraminal narrowing. 4. No neural impingement. IV reversal of normal cervical spine curvature. Per: Sindhu Watt MD, PhD on 09/17/2018 Treatment Goals Patient/Caregiver Goals I really just want to get rid of the pain. PT-OP-C Subjective Start: 11/18/18 17:47 Freq: Status: Active Protocol: Document 01/28/19 15:20 HH (Rec: 01/28/19 16:19 HH [email or web address]) OP-PT Subjective Patient Comments Patient Comments My shoulder still hurts after last session. My neck did get better since evaluation but shoulder is not improving. 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 And I would say the manual treatment from before is very light to me and i want to see if increasing manual pressure would help. PT-OP-F Manual Assessment Start: 11/18/18 17:47 Freq: Status: Active Protocol: Document 11/18/18 13:45 DCW (Rec: 11/19/18 16:55 DCW [id number]) Manual Assessments Soft Tissue Assessment Soft Tissue Mobility Assessment Moderate tone, tenderness to palpation 3/4 wincing and withdraw at right upper trap, right levator, right biceps tendon, bilateral suboccipitals Joint Mobility Assessment Joint Mobility Assessment Significant crepitus, limited ROM of right shoulder joint, pain with both AROM and PROM PT-OP-J Posture/Palpation/Skin Start: 11/19/18 16:55 Freq: Status: Active Protocol: Document 11/18/18 13:45 DCW (Rec: 11/19/18 16:56 DCW [id number]) Posture Evaluation Position Sitting Shoulder Posture (L) Forward Scapula Posture (L) Protracted,(L) Rotated Down,(L) Depressed PT-OP-K Range of Motion Start: 11/18/18 17:47 Freq: Status: Active Protocol: Document 11/18/18 13:45 DCW (Rec: 11/19/18 16:55 DCW [id number]) Cervical Spine Range of Motion Cervical Spine Active Degrees Testing Position Sitting Flexion 50 Extension 30 Rotation Left 48 Rotation Right 37 Lateral Flexion Left 30 Lateral Flexion Right 25 ROM Limitations Soft Tissue Tightness,Bony Restriction,Muscle Tone,Pain Shoulder Goniometric Range of Motion Shoulder Right Passive Shoulder ROM WFL No Testing Position Sitting Flexion 57 Abduction 52 External Rotation at 0 degrees Abduction 70 Right Active Testing Position Sitting Flexion 50 Abduction 43 Left Shoulder ROM WFL Yes PT-OP-L Special Tests Start: 11/18/18 17:47 Freq: Status: Active Protocol: Document 11/18/18 13:45 DCW (Rec: 11/19/18 16:55 DCW [id number]) Special Tests Cervical Spine Special Tests Passive Neck Flexion Test Results Positive R Spurling's Test Test Results Positive R Traction Test Results Mild improvement Foraminal Compression Test Results Positive R Shoulder Special Tests Passive ER Rotator Cuff Test Results Positive R Lift-Off Rotator Cuff Test Results Unable to position arm Cooney David Impingement Test Results Positive R Empty Can Test Results Unable to position arm Drop Arm Rotator Cuff Test Results Unable to position arm Belly Press Test Results Positive R AC Joint Compression Test Results Positive R PT-OP-M Strength Start: 11/18/18 17:47 Freq: Status: Active Protocol: Document 11/18/18 13:45 DCW (Rec: 11/19/18 16:55 DCW [id number]) Shoulder Strength Shoulder Manual Muscle Testing Left Flexion 2+ Poor+ Abduction (C5) 2+ Poor+ External Rotation 3 Fair PT-OP-Q Treatments Start: 11/18/18 17:47 Freq: Status: Active Protocol: Document 01/28/19 15:20 HH (Rec: 01/28/19 16:19 HH [email or web address]) Therapeutic Exercises Supine Exercises supine shd flexion Side bilateral Reps/Minutes 5 x 3 Comments increase up to 120 degrees AROM after manual therapy Sidelying Exercises SL abduction Side bilateral Reps/Minutes 5 x 3 Comments increase up to 120 degrees AROM after manual therapy Standing Exercises CARs scapula Side bilateral Reps/Minutes 5 x 3 Comments cues on slow scap rotation CARs cervical Side bilateral Reps/Minutes 5 x 3 Comments cues on slow cervical rotation Manual Therapy Treatment Joint Mobilizations scapular and clavicle Direction upward and downward glide Grade III Body Position Sidelying Reps/Duration 10 secs x8 AC joint gapping Direction gapping Grade III Body Position Sidelying Reps/Duration 10 secs x8 clavicle Joint AC joint Direction upward and downawrd glide Grade III Body Position Sidelying Reps/Duration 10 secs x 8 GH Joint R GH Direction long axis distraction, inferior glide Grade II Body Position Sitting Reps/Duration 5 min PT-OP-R Modalities Start: 11/18/18 17:47 Freq: Status: Active Protocol: Document 12/23/18 16:45 DCW (Rec: 12/23/18 17:16 DCW [id number]) Electric Stimulation Electric Stimulation Interferential Current (IFC) Body Location R shoulder Duration (Minutes) 15 Intensity 14 Cycle Continuous Patient Position Hooklying Combined With Heat/Cold Cold Pack PT-OP-T Assessment and Plan Start: 11/18/18 17:47 Freq: Status: Active Protocol: Document 01/28/19 15:20 HH (Rec: 01/28/19 16:19 HH [email or web address]) Physical Therapy Assessment Goals Four Impairment Restricted shoulder mobility Cooker Mechanic Goal (LTG) Pt to improve active shoulder ROM to 100? in both flexion and abduction LTG Duration 01/19/19 Three Impairment Poor positioning of right scapula Cooker Mechanic Goal (LTG) Pt's right scapular positioning equal to left scapula LTG Duration 01/19/19 Two Impairment Pt unable to drive due to increased shoulder and neck pain Cooker Mechanic Goal (LTG) Pt to drive to [place] and back with no increased cervical or shoulder pain LTG Duration 01/19/19 One Impairment Pt does not have an appropriate home exercise program Short Term Goal (STG) Pt to be independent and compliant with an appropriate HEP STG Duration 12/19/18 Assessment Summary Assessment Changed of tx approach today to manual therapy based for AC joint and GH glide with grade 3 to 4. Gapping and clavicle glide were used. Pt has immediate R shoulder AROM improvements up to 120 for flexion and 90 for abduction in standing. Educated pt to attempt CARs for cervical spine and scapular at home. Physical Therapy Plan Next Visit Focus/Plan Next Note Type Treatment Note Next Visit Plan reassess pt's symptoms and ROM if valery well, cont AC gapping and clavicle mob movement with mobilization during shd flexion and abduction.
--- NOTE | 2019-01-30 15:51 | PT.OTN ---
Current Diagnoses Stiffness of unspecified joint, not elsewhere classified (01/30/19) Stiffness of right shoulder, not elsewhere classified (01/30/19) Cervical disc disorder, unspecified, unspecified cervical region (01/30/19) Radiculopathy, cervical region (01/30/19) Muscle weakness (generalized) (01/30/19) Abnormal posture (01/30/19) Physical Therapy Treatment Note PT-OP-A Visit Information Start: 11/18/18 17:47 Freq: Status: Active Protocol: Document 01/30/19 15:15 DCW (Rec: 01/30/19 15:50 DCW [id number]) Out-Patient Physical Therapy Visit Information Visit Information Visit Type Treatment Note Visit Start Time 15:15 Visit Stop Time 16:00 Total Visit Minutes 45 Visit Number 14 Number of GAME DESIGNER Visits 0 PT-OP-B Current Condition Start: 11/18/18 17:47 Freq: Status: Active Protocol: Document 11/18/18 13:45 DCW (Rec: 11/19/18 16:55 DCW [id number]) Current Condition History of Current Condition Onset Date 2 year history Current Complaints Cervical and right shoulder/ arm pain and stiffness History of Current Condition Pt is a 48 year old male presenting with a two year history of neck and right shoulder/arm pain. Pt reports that he has been diagnosed with cervical DJD, however at the moment, his neck is feeling pretty good. He still has increased pain in his right shoulder radiating to his mid-upper arm. Pt reports his cervical pain frequently makes him dizzy, and between that and the arm pain, he has not been driving. Pt's history is complicated by an ongoing hernia which has undergone three failed surgical repairs and causes him extreme pain as well. Pt reports his shoulder has limited mobility, which prevents him from performing any task which requires him to even lift his arm up to chest height. Prior Treatments and Tests Cervical X-ray: 1. Multilevel degenerative disease. 2. Mild to moderate C4-C5, C5-C6 and C6-C7 central canal narrowing. Mild C3-C4 central canal narrowing. 3. Mild to moderate bilateral C5-C6 neural foraminal narrowing. Mild bilateral C6-C7 neural foraminal narrowing. Mild left C3-C4 neural foraminal narrowing. 4. No neural impingement. IV reversal of normal cervical spine curvature. Per: Sindhu Watt MD, PhD on 09/17/2018 Treatment Goals Patient/Caregiver Goals I really just want to get rid of the pain. PT-OP-C Subjective Start: 11/18/18 17:47 Freq: Status: Active Protocol: Document 01/30/19 15:15 DCW (Rec: 01/30/19 15:50 DCW [id number]) OP-PT Subjective Patient Comments Patient Comments Pt reports he has been much worse since his last session. He knows why they attempted a more intensive manual therapy, but has felt bruised, swollen , and painful ever since, and struggles to move his arm. Feels the increased intensity of last visit was not worth the pain, especially since he feels like his shoulder is moving even worse than it had been PT-OP-F Manual Assessment Start: 11/18/18 17:47 Freq: Status: Active Protocol: Document 11/18/18 13:45 DCW (Rec: 11/19/18 16:55 DCW [id number]) Manual Assessments Soft Tissue Assessment Soft Tissue Mobility Assessment Moderate tone, tenderness to palpation 3/4 wincing and withdraw at right upper trap, right levator, right biceps tendon, bilateral suboccipitals Joint Mobility Assessment Joint Mobility Assessment Significant crepitus, limited ROM of right shoulder joint, pain with both AROM and PROM PT-OP-J Posture/Palpation/Skin Start: 11/19/18 16:55 Freq: Status: Active Protocol: Document 11/18/18 13:45 DCW (Rec: 11/19/18 16:56 DCW [id number]) Posture Evaluation Position Sitting Shoulder Posture (L) Forward Scapula Posture (L) Protracted,(L) Rotated Down,(L) Depressed PT-OP-K Range of Motion Start: 11/18/18 17:47 Freq: Status: Active Protocol: Document 01/30/19 15:15 DCW (Rec: 01/30/19 15:51 DCW [id number]) Cervical Spine Range of Motion Cervical Spine Active Degrees Testing Position Sitting Flexion 32 Extension 30 Rotation Left 48 Rotation Right 40 Lateral Flexion Left 33 Lateral Flexion Right 27 ROM Limitations Soft Tissue Tightness,Bony Restriction,Muscle Tone,Pain Shoulder Goniometric Range of Motion Shoulder Right Passive Shoulder ROM WFL No Testing Position Sitting Flexion 92 Abduction 80 External Rotation at 0 degrees Abduction 36 Right Active Testing Position Sitting Flexion 90 Abduction 75 Left Shoulder ROM WFL Yes PT-OP-L Special Tests Start: 11/18/18 17:47 Freq: Status: Active Protocol: Document 11/18/18 13:45 DCW (Rec: 11/19/18 16:55 DCW [id number]) Special Tests Cervical Spine Special Tests Passive Neck Flexion Test Results Positive R Spurling's Test Test Results Positive R Traction Test Results Mild improvement Foraminal Compression Test Results Positive R Shoulder Special Tests Passive ER Rotator Cuff Test Results Positive R Lift-Off Rotator Cuff Test Results Unable to position arm Cooney David Impingement Test Results Positive R Empty Can Test Results Unable to position arm Drop Arm Rotator Cuff Test Results Unable to position arm Belly Press Test Results Positive R AC Joint Compression Test Results Positive R PT-OP-M Strength Start: 11/18/18 17:47 Freq: Status: Active Protocol: Document 11/18/18 13:45 DCW (Rec: 11/19/18 16:55 DCW [id number]) Shoulder Strength Shoulder Manual Muscle Testing Left Flexion 2+ Poor+ Abduction (C5) 2+ Poor+ External Rotation 3 Fair PT-OP-Q Treatments Start: 11/18/18 17:47 Freq: Status: Active Protocol: Document 01/30/19 15:15 DCW (Rec: 01/30/19 15:50 DCW [id number]) Cardio Equipment Upper Body Ergometer (UBE) Duration (Minutes) 2 Seat Position 13 Height 3 Other stopped secondary to pain Therapeutic Exercises Supine Exercises 2 Supine Exercise Name shoulder flexion, abduction Side right Resistance AAROM w red bar Reps/Minutes 2x10 reps each plane Comments pt tolerating more movement today with increased ROM in flexion Manual Therapy Treatment Manual Techniques 1 Comments ROM testing Self-Care/Home Management Treatment Education Patient Education Pain Management,Safety PT-OP-R Modalities Start: 11/18/18 17:47 Freq: Status: Active Protocol: Document 12/23/18 16:45 DCW (Rec: 12/23/18 17:16 DCW [id number]) Electric Stimulation Electric Stimulation Interferential Current (IFC) Body Location R shoulder Duration (Minutes) 15 Intensity 14 Cycle Continuous Patient Position Hooklying Combined With Heat/Cold Cold Pack PT-OP-T Assessment and Plan Start: 11/18/18 17:47 Freq: Status: Active Protocol: Document 01/30/19 15:15 DCW (Rec: 01/30/19 15:50 DCW [id number]) Physical Therapy Assessment Goals Four Impairment Restricted shoulder mobility Correction Goal (LTG) Pt to improve active shoulder ROM to 100? in both flexion and abduction LTG Duration 01/19/19 Three Impairment Poor positioning of right scapula Correction Goal (LTG) Pt's right scapular positioning equal to left scapula LTG Duration 01/19/19 Two Impairment Pt unable to drive due to increased shoulder and neck pain Correction Goal (LTG) Pt to drive to [place] and back with no increased cervical or shoulder pain LTG Duration 01/19/19 One Impairment Pt does not have an appropriate home exercise program Short Term Goal (STG) Pt to be independent and compliant with an appropriate HEP STG Duration 12/19/18 Assessment Summary Assessment Pt did not do well with the change in treatment tactics last visit. Very sore to the point of almost cancelling today's visit. Patient and therapist discussed his lack of progress, continued severe pain, and progress toward goals, and agreed that he was unlikely to progress much more in his three more authorized PT visits. Agreeable to discharge at this time, pt planning to return to his PCP to determine next course of action. Physical Therapy Plan Frequency and Duration Frequency of Treatment 2x/Week Duration of Treatment 12 weeks Plan of Care Start Date 11/18/18 Plan of Care End Date 02/17/19 Discharge Physical Therapy Discharge Reasons Plateau in Progress Next Visit Focus/Plan Next Note Type Discharge Summary
== END 2019-02-14 12:53 | disposition home or self-care (01) ==
LOC: PHYS 15:15
PROVIDERS: PCP Student in an Organized Health Care Education/Training Program; Visit Provider Registered Nurse
DX: M50.90 Cervical disc disorder, unspecified, unspecified cervical region (principal); M54.12 Radiculopathy, cervical region; M25.611 Stiffness of right shoulder, not elsewhere classified; M25.60 Stiffness of unspecified joint, not elsewhere classified; M62.81 Muscle weakness (generalized); R29.3 Abnormal posture
CPT/HCPCS: 97014; 97110; 97140; 97162; 97530; G0283

== ENCOUNTER 2019-02-12 17:27 | Emergency (ER) | payer OTHER, MEDICAID, SELFPAY ==
[2019-02-12 17:41] VITALS: BP 141/92; PULSE 91; RESP 18; TEMP 36.3; O2SAT 94; BMI 42.1
--- NOTE | 2019-02-12 18:22 | ED_ITS ---
HPI - Abdominal Pain General Chief Complaint: Abdominal Pain Stated Complaint: lower abd to hip, leg and groin pain Time Seen by Provider: 02/12/19 18:16 Source: patient and family (Mother) Mode of arrival: Family Vehicle Limitations: no limitations History of Present Illness HPI narrative: This is a 48-year-old male who comes to the emergency department with complaint of abdominal, back and right lower extremity pain. Patient states he has had chronic pain but this is much worse than normal. Patient states that he has a history of a hernia with mesh in the right lower quadrant. He has had 3 surgeries totals the most recent was in May of 2018 in the mesh was infiltrating into the small bowel. He had surgery at [facility] with Dr. aponte. Patient states that this feels sort of similar but he is also having pain in his back and radiating down his leg. He has not had any recent trauma or injuries. Patient denies any fevers or chills, no chest pain, no shortness of breath, had normal bowel movements with normal urination. Patient does take narcotics intermittently and has been taking them more frequently this week because the pain is the worst that it has been. He also takes gabapentin and medication orally for diabetes. Patient denies any history of hypertension, dyslipidemia cardiac issues. Who he felt a little bit more cold. He denies any numbness or weakness in his extremities in the pain radiates heart rate down his leg. Today he was at a gastroenterology appointment to be set up for a colonoscopy and they recommended that he come to the ER. He does not use [employer] account [employer], rare alcohol, no illicit. He states he is allergic to lisinopril. Related Data Home Medications Medication Instructions Recorded Confirmed linagliptin [Tradjenta] 5 mg PO #0 01/29/17 01/31/19 glimepiride [Amaryl] 1 tab PO QDAY #0 06/07/17 01/31/19 gabapentin 800 mg tablet 800 mg PO TID tab 10/14/18 01/31/19 glimepiride 4 mg tablet 4 mg PO QAM 10/14/18 01/31/19 Previous Rx's Medication Instructions Recorded Glucose: Home Monitoring Kit 0 kit #1 ea 12/15/15 [TRUE METRIX TEST STR] See Rx Instructions SUBCUT QDAY 02/15/18 #100 strip metformin 1,000 mg tablet 1,000 mg PO BIDCC #60 tab 03/06/18 losartan 50 mg tablet 50 mg PO DAILY #90 tab 10/11/18 ibuprofen 800 mg tablet 800 mg PO TID #270 tab 12/10/18 hydrocodone 7.5 mg-acetaminophen 1 tab PO Q6H PRN #50 tab 01/21/19 325 mg tablet cyclobenzaprine 10 mg PO TID PRN #10 tab 02/12/19 Allergies Allergy/AdvReac Type Severity Reaction Status Date / Time lisinopril AdvReac Severe cough Verified 02/12/19 17:45 Review of Systems Review of Systems ROS Unobtainable: All systems reviewed & are unremarkable except as noted in HPI and below PFSH Medical History Carpal tunnel syndrome (Chronic Unknown) Chronic pain syndrome (Chronic Unknown) Chronic right lower quadrant pain (Chronic 12/10/15) Chronic right shoulder pain (Chronic) Diabetes (Chronic Unknown) Hx of tendinitis (Resolved ~2016) Neuropathic pain (Chronic) Other chronic postprocedural pain (Chronic) Primary insomnia (Chronic 03/13/16) Right-sided thoracic back pain (Acute) Shoulder pain (Resolved 2010) Uncomplicated opioid dependence (Chronic 03/06/17) Uncomplicated opioid dependence (Chronic) Surgical History Hx of hernia repair (Resolved 2005) Family History Brother Age: 51 Diabetes mellitus Father Essential hypertension Other Primary insomnia Social History Smoking Status: Never smoker Social History (Updated 02/12/19 @ 18:28 by Debora Dumont DO) Smoking Status: Never smoker alcohol intake: current substance use type: does not use Exam Narrative Exam Narrative: GENERAL: Alert and oriented x three, obese male in hifb-qv-rhjbjwve distress. HEENT: Head normocephalic, atraumatic, EOMI, pupils reactive, face symmetric, moist mucous membranes NECK: Supple, full range of motion CARDIOVASCULAR: Regular rate and rhythm without murmurs, rubs or gallops. RESPIRATORY: Breath sounds equal bilaterally, no wheezes rales or rhonchi. ABDOMEN: Soft, positive for right lower quadrant and inguinal tenderness, patient has a large pannus but no hernia is appreciated. Normoactive bowel sounds all 4 quadrants. No guarding or rebound, rigidity, no mass : No CVA tenderness BACK: No cervical, thoracic or lumbar vertebral point tenderness. Patient does h ave tenderness in the left lower back and over the SI joint and piriformis region. Patient states it does not recreate his leg pain. Patient has moderately range of motion. Patient's gait is mildly antalgic. Muscle strength is 5/5 in lower extremities. Dorsalis pedis and tibialis pulses are 2+ and lower extremities. Sensation is intact in the lower extremities. EXTREMITIES: Normal range of motion, no clubbing or edema. Neurovascularly intact NEUROLOGICAL: Cranial nerves II through XII grossly intact. Moving all extremities SKIN: Warm, dry, no petechiae, no rashes or lesions. Initial Vital Signs Initial Vital Signs: Vital Signs Temperature 97.3 F L 02/12/19 17:41 Pulse Rate 91 H 02/12/19 17:41 Respiratory Rate 18 02/12/19 17:41 Blood Pressure 141/92 H 02/12/19 17:41 Pulse Oximetry 94 02/12/19 17:41 Course Orders Ordered: ED Orders 02/12/19 18:17 Complete Blood Count AUTO DIFF Stat Comprehensive Metabolic Panel Stat Lipase Stat Partial Thromboplastin Time Stat Prothrombin Time INR Stat Troponin & CK Cardiac Panel Stat 02/12/19 18:23 CT angio chest abdomen pelvis Stat Discontinued Medications Sodium Chloride (Normal Saline 0.9%) 1,000 mls @ 150 mls/hr IV CONT JORGE Last Infusion: 02/12/19 20:36 Dose: 0 mls/hr Documented by: Admin: 02/12/19 18:35 Dose: 150 mls/hr Documented by: CHYNA Ketorolac Tromethamine (Toradol) 15 mg IV NOW ONE Stop: 02/12/19 18:24 Last Admin: 02/12/19 18:34 Dose: 15 mg Documented by: CHYNA Morphine Sulfate (Morphine) 4 mg IV NOW ONE Stop: 02/12/19 20:00 Last Admin: 02/12/19 20:19 Dose: 4 mg Documented by: ALBERTONEBrandy Vital Signs Vital signs: Vital Signs - 8 hr 02/12/19 20:32 02/12/19 20:36 Pulse Rate 97 H 83 Respiratory Rate 17 16 Blood Pressure 148/100 H Blood Pressure [Right Arm] 147/100 H Pulse Oximetry 97 97 MDM - Abdominal Pain Lab Data Attestation: I reviewed the patient's lab results. Result diagrams: 02/12/19 18:17 02/12/19 18:17 Labs: Lab Results 02/12/19 02/12/19 02/12/19 Range/Units 18:17 18:17 18:17 WBC 8.0 (4.5-11.0) X10^3/uL RBC 4.99 (4.5-5.9) X10^6/uL Hgb 14.6 (13.5-17.5) g/dL Hct 43.7 (41-53) % MCV 87.4 (80-100) fL MCH 29.2 (26-34) PG MCHC 33.3 (30-36) % RDW 13.1 (11.6-14.8) % Plt Count 328 (150-400) X10^3/uL Neut % (Auto) 66.4 (50-75) % Lymph % (Auto) 24.2 L (25-40) % Chambers % (Auto) 6.4 (3-14) % Eos % (Auto) 2.8 (2-4) % Baso % (Auto) 0.2 (0-2) % Neut # (Auto) 5300 (6811-5480) /uL Lymph # (Auto) 1900 (1530-1363) /uL Chambers # (Auto) 500 (0-900) /uL Eos # (Auto) 200 (0-450) /uL Baso # (Auto) 0 (0-100) /uL PT 11.6 (10.1-12.7) SECONDS INR 1.0 (0.9-1.3) APTT 34 (26.4-36.2) SECONDS Sodium 137 (137-145) mmol/L Potassium 4.4 (3.4-5.1) mmol/L Chloride 100 (98-107) mmol/L Carbon Dioxide 28 (22-32) mmol/L BUN 18 (9-20) mg/dL Creatinine 0.70 (0.66-1.25) mg/dL Estimated GFR > 60.0 (>60) mL/min BUN/Creatinine Ratio 25.7 H (6-22) Glucose 303 H (70-100) mg/dL Calcium 9.2 (8.4-10.2) mg/dL Total Bilirubin 0.7 (0.2-1.3) mg/dL AST 26 (17-59) IU/L ALT 26 (21-72) IU/L Alkaline Phosphatase 93 (38-126) U/L Total Creatine Kinase (55-170) U/L CK-MB (CK-2) (<2.37) ng/mL CK-MB (CK-2) Rel Index (1.5-5.0) % Troponin I (0.01-0.034) ng/mL Total Protein 6.5 (6.3-8.2) g/dL Albumin 3.9 (3.5-5.0) g/dL Globulin 2.6 (1.7-4.1) g/dL Albumin/Globulin Ratio 1.5 (1.0-2.8) Lipase 374 H (23-300) U/L 02/12/19 Range/Units 18:17 WBC (4.5-11.0) X10^3/uL RBC (4.5-5.9) X10^6/uL Hgb (13.5-17.5) g/dL Hct (41-53) % MCV (80-100) fL MCH (26-34) PG MCHC (30-36) % RDW (11.6-14.8) % Plt Count (150-400) X10^3/uL Neut % (Auto) (50-75) % Lymph % (Auto) (25-40) % Chambers % (Auto) (3-14) % Eos % (Auto) (2-4) % Baso % (Auto) (0-2) % Neut # (Auto) (2947-9665) /uL Lymph # (Auto) (0398-2924) /uL Chambers # (Auto) (0-900) /uL Eos # (Auto) (0-450) /uL Baso # (Auto) (0-100) /uL PT (10.1-12.7) SECONDS INR (0.9-1.3) APTT (26.4-36.2) SECONDS Sodium (137-145) mmol/L Potassium (3.4-5.1) mmol/L Chloride (98-107) mmol/L Carbon Dioxide (22-32) mmol/L BUN (9-20) mg/dL Creatinine (0.66-1.25) mg/dL Estimated GFR (>60) mL/min BUN/Creatinine Ratio (6-22) Glucose (70-100) mg/dL Calcium (8.4-10.2) mg/dL Total Bilirubin (0.2-1.3) mg/dL AST (17-59) IU/L ALT (21-72) IU/L Alkaline Phosphatase (38-126) U/L Total Creatine Kinase 118 (55-170) U/L CK-MB (CK-2) 1.83 (<2.37) ng/mL CK-MB (CK-2) Rel Index 1.6 (1.5-5.0) % Troponin I < 0.012 (0.01-0.034) ng/mL Total Protein (6.3-8.2) g/dL Albumin (3.5-5.0) g/dL Globulin (1.7-4.1) g/dL Albumin/Globulin Ratio (1.0-2.8) Lipase (23-300) U/L Imaging Data CT scan - abdomen: Radiologist's impression: José Starr 48 M 1970 [place] [address] CT Scan Report Signed Patient: José Starr TMR#: [id number] : 1970Acct:[id number] Age/Sex: 48 / MDate of Service: 02/12/19 Loc: ED Accession Number: [id number] Procedure: CT angio chest abdomen pelvis Ordering Provider: Debora Dumont D.O. PROCEDURE: CT ANGIO CHEST ABDOMEN PELVIS INDICATIONS: back/abd/leg pain, hx hernia w/ mesh LLQ TECHNIQUE: Precontrast 5 mm thick sections acquired from the lung apices to the iliac crests. After the administration of intravenous contrast, 2.5 mm thick sections again acquired from the lung apices to the iliac crests. Maximum intensity projection (MIP) oblique sagittal and coronal reformats were then acquired. For radiation dose reduction, the SLEDVisiong was used: automated exposure control. COMPARISON: [facility], CT, CT ABDOMEN PELVIS WO CON, 10/16/2018, 14:58. FINDINGS: Image quality: Excellent. AORTA: The thoracoabdominal aorta is within normal limits. No aneurysm or dissection. No significant stenosis. CHEST: Lungs and pleura: No acute airspace opacities. No pleural effusions or pneumothorax. Central and peripheral airways are patent and normal in caliber. Mediastinum: Heart size is normal. No pericardial effusion. No mediastinal or hilar adenopathy by size criteria. Central pulmonary arteries are normal in size. Esophagus is normal in caliber. No hiatal hernias. Bones and chest wall: No axillary adenopathy by size criteria. Thyroid gland is within normal limits. No suspicious bony lesions. No vertebral body compression fractures. ABDOMEN: Vasculature: Celiac trunk and mesenteric arteries are patent. Renal arteries are also patent. Solid organs: Liver is normal in size and enhancement. Gallbladder is within normal limits. Biliary system is non dilated. Pancreas enhances normally. Spleen is normal in size and enhancement. No adrenal nodules. Horseshoe kidney is present which is otherwise within normal limits. Peritoneum and bowel: No free fluid or air. Bowel loops are normal in caliber and wall thickness. Normal appendix. Nodes and vessels: No retroperitoneal or mesenteric adenopathy by size criteria. Inferior vena cava is normal in morphology. Miscellaneous: No ventral hernias. PELVIS: Genitourinary: Bladder wall thickness is normal. Miscellaneous: No inguinal hernias or adenopathy. No ventral hernias. Bones: No suspicious bony lesions. No vertebral body compression fractures. IMPRESSION: 1. Negative CT angiography of the chest, abdomen, and pelvis. 2. No evidence of aortic dissection. 3. Normal appendix. 4. Horseshoe kidney. Dictated by: Lacho Hoover M.D. on 02/12/2019 at 19:24 Approved by: Lacho Hoover M.D. on 02/12/2019 at 19:27 ECG Data Attestation: I personally reviewed and interpreted this ECG as follows: Prior ECG tracings: available for review Interpretation: Sinus rhythm with a rate 89 P are 194 QRS of 102 and QTC of 480. Patient does have Q-waves in 1 and aVL, RS are in V1 V2 with nonspecific T-wave abnormalities which do appear similar to prior EKG from 07/01/2013 throughout the lateral leads as well as other leads. MDM Narrative Medical decision making narrative: This is a 48-year-old male who comes in with complaint of abdominal as well as back pain. On patient's initial exam was not clear the exact source. He has had a mesh that is required surgery in the for revision. Patient's labs show lipase the slightly elevated, patient's pain is all in the right lower quadrant so I do not suspect this is the cause, he does have hyperglycemia, CTA shows horseshoe kidney but out evidence of dissection, normal appendix. Patient was more comfortable after some pain medication. He found Toradol somewhat helpful but also received a dose of Morphine. Patient has norco at home, given short rx of muscle relaxer and can take ibuprofen prn. Discharge Plan Departure Patient Disposition: Home Clinical Impression: Horseshoe kidney, Back pain, Elevated lipase Discharge Date/Time: 02/12/19 20:37 Instructions: DI for Back Pain With Sciatica Activity Restrictions/Additional Instructions: Follow-up with your primary care in the next week, call for an appointment. I would also recommend following up with your diamond cutter to get your co lonoscopy. You may continue take [place] 1 tablet every 6 hours as needed for pain. May take ibuprofen with this medication up to 800 mg every 8 hours as needed. You may take muscle relaxer with this medication, can make you increasingly sleepy sooner not drive, perform hazardous activities or make any major decisions while taking it. Prescription was sent to [facility]. Return to the emergency department for fevers greater 100.4 F, passing out, loss of sensation in your lower extremities, loss of bowel or bladder control, new weakness, inability to walk, persistent vomiting, black or bloody stools or other new or concerning symptoms. Prescriptions: New cyclobenzaprine 10 mg tablet 10 mg PO TID PRN (Reason: muscle spasm) Qty: 10 RF: 0 No Action Glucose: Home Monitoring Kit 0 kit Qty: 1 RF: 0 linagliptin [Tradjenta] 5 MG tablet 5 mg PO Qty: 0 RF: 0 glimepiride [Amaryl] 4 MG tablet 1 tab PO QDAY Qty: 0 RF: 0 [TRUE METRIX TEST STR] See Rx Instructions SUBCUT QDAY Qty: 100 RF: 2 metformin 1,000 mg tablet 1,000 mg PO BIDCC Qty: 60 RF: 11 ibuprofen 800 mg tablet 800 mg PO TID Qty: 270 RF: 1 losartan 50 mg tablet 50 mg PO DAILY Qty: 90 RF: 0 hydrocodone-acetaminophen 7.5-325 mg tablet 1 tab PO Q6H PRN (Reason: pain) Qty: 50 RF: 0 gabapentin 800 mg tablet 800 mg PO TID RF: 0 glimepiride 4 mg tablet 4 mg PO QAM RF: 0 Referrals: Oswaldo Pickering MD [Primary Care Provider] -
[2019-02-12 18:24] LABS: Add Manual Diff / Slide Review NO; Basophils Absolute Auto 0 /uL (0-100); Basophils Percent Auto 0.2 % (0-2); Eosinophils Absolute Auto 200 /uL (0-450); Eosinophils Percent Auto 2.8 % (2-4); Hematocrit 43.7 % (41-53); Hemoglobin 14.6 g/dL (13.5-17.5); Lymphocytes Absolute Auto 1900 /uL (1100-4500); Lymphocytes Percent Auto 24.2 % (25-40); Mean Corpuscular HGB Conc 33.3 % (30-36); Mean Corpuscular Hemoglobin 29.2 PG (26-34); Mean Corpuscular Volume 87.4 fL (80-100); Monocytes Absolute Auto 500 /uL (0-900); Monocytes Percent Auto 6.4 % (3-14); Neutrophils Absolute Auto 5300 /uL (1500-7000); Neutrophils Percent Auto 66.4 % (50-75); Platelet Count 328 X10^3/uL (150-400); Red Blood Cell Count 4.99 X10^6/uL (4.5-5.9); Red Cell Distribution Width 13.1 % (11.6-14.8)
[2019-02-12 18:30] LABS: Prothrombin Time 11.6 SECONDS (10.1-12.7)
[2019-02-12 18:33] LABS: PTT Partial Thromboplastin Tim 34 SECONDS (26.4-36.2)
[2019-02-12] MEDS: KETOROLAC 60 MG/2 ML VIAL 15 MG IV (18:34)
[2019-02-12 18:35] LABS: Alanine Aminotransferase 26 IU/L (21-72); Albumin 3.9 g/dL (3.5-5.0); Albumin Globulin Ratio 1.5 (1.0-2.8); Alkaline Phosphatase 93 U/L (38-126); Aspartate Aminotransferase 26 IU/L (17-59); BUN Creatinine Ratio 25.7 (6-22); Bilirubin Total 0.7 mg/dL (0.2-1.3); Blood Urea Nitrogen 18 mg/dL (9-20); Calcium 9.2 mg/dL (8.4-10.2); Carbon Dioxide 28 mmol/L (22-32); Chloride 100 mmol/L (98-107); Estimated Glomerular Filt Rate > 60.0 mL/min (>60); Globulin 2.6 g/dL (1.7-4.1); Glucose 303 mg/dL (70-100); HEMOLYSIS 16 (0-50); Lipase 374 U/L (23-300); Potassium 4.4 mmol/L (3.4-5.1); Sodium 137 mmol/L (137-145); Total Protein 6.5 g/dL (6.3-8.2)
[2019-02-12] MEDS: SODIUM CHLORIDE 0.9% 1,000 ML 150 ML IV (18:35)
[2019-02-12 18:45] LABS: Creatine Kinase 118 U/L (55-170)
[2019-02-12 18:58] LABS: Troponin I < 0.012 ng/mL (0.01-0.034)
[2019-02-12 19:01] LABS: CKMB % Relative Index 1.6 % (1.5-5.0); Creatine Kinase MB 1.83 ng/mL (<2.37)
[2019-02-12] MEDS: MORPHINE 4 MG/ML INJ IV (20:19)
[2019-02-12 20:32] VITALS: BP 147/100; PULSE 97; RESP 17; O2SAT 97
[2019-02-12 20:36] VITALS: BP 148/100; PULSE 83; RESP 16; O2SAT 97
== END 2019-02-12 20:37 | disposition home or self-care (01) ==
PROVIDERS: Emergency Medicine; Emergency Provider Emergency Medicine; Family Provider Student in an Organized Health Care Education/Training Program; PCP Student in an Organized Health Care Education/Training Program
DX: Q63.1 Lobulated, fused and horseshoe kidney (principal); M54.9 Dorsalgia, unspecified; R74.8 Abnormal levels of other serum enzymes; R10.31 Right lower quadrant pain
CPT/HCPCS: 36415; 71275; 74174; 80053; 82550; 82553; 83690; 84484; 85025; 85610; 85730; 93005; 96361; 96374; 96375; 99283; 99285; J1885; J2270; Q9967

== ENCOUNTER → 2019-02-19 16:00 | Outpatient (CLI) | payer OTHER, MEDICAID, SELFPAY ==
--- NOTE | 2019-02-19 16:01 | DI.MRI.S_ITS ---
PROCEDURE: MR SHOULDER RT WO CON INDICATIONS: R shoulder pain TECHNIQUE: Noncontrast oblique coronal T2 fast spin echo with fat saturation, oblique sagittal T1 spin echo and T2 fast spin echo with fat saturation, axial T1 spin echo and T2 fast spin echo with fat saturation through the shoulder. COMPARISON: None. FINDINGS: Image quality: Excellent. Rotator cuff: There is tendinosis and low-grade articular and bursal surface partial-thickness tear involving distal supraspinatus and infraspinatus tendon insertion the humeral head extending to musculotendinous junction. Distal subscapularis tendon is intact. Sagittal images demonstrate no significant muscle atrophy. Bones and bursae: No bone marrow contusions or fractures. Moderate acromioclavicular joint osteoarthritis is seen with downward osteophyte formation compressing on musculotendinous junction of supraspinatus. No pathologic subacromial-subdeltoid or subcoracoid bursal fluid is present. Capsule and soft tissues: In the absence of intra-articular contrast, there is suggestion of superior anterior labral tear extending from 12 to 3:00 position. The glenohumeral ligaments appear intact. Tendinosis and moderate grade partial-thickness tear involving proximal intra-articular portion of long head biceps tendon is seen. The rotator interval appears normal, without fibrosis. The coracohumeral ligament is normal in thickness. IMPRESSION: 1. Moderate acromioclavicular joint osteophyte is with osteophyte formation compressing on musculotendinous junction of supraspinatus. 2. Tendinosis and low-grade articular and bursal surface partial-thickness tear involving distal supraspinatus and infraspinatus. 3. Suggestion of extensive superior anterior labral tear a 12 to 3:00 position. 4. Tendinosis and moderate grade partial-thickness tear involving proximal intra-articular portion of long head biceps tendon. Dictated by: Segundo Cam M.D. on 02/20/2019 at 14:13 Approved by: Segundo Cam M.D. on 02/20/2019 at 14:24
== END ==
PROVIDERS: Family Provider Student in an Organized Health Care Education/Training Program; PCP Student in an Organized Health Care Education/Training Program; Visit Provider Student in an Organized Health Care Education/Training Program
DX: M25.511 Pain in right shoulder (principal); M75.111 Incomplete rotator cuff tear or rupture of right shoulder, not specified as traumatic; S46.111A Strain of muscle, fascia and tendon of long head of biceps, right arm, initial encounter; G89.29 Other chronic pain
CPT/HCPCS: 73221

== ENCOUNTER 2020-01-31 17:23 | Emergency (ER) | payer OTHER, MEDICAID, SELFPAY ==
[2020-01-31] VITALS (12 sets, daily range): BP systolic 126–151; BP diastolic 81–96; PULSE 90–116; RESP 18–20; TEMP 36.8–37.3; O2SAT 92–99; BMI 39.8
[2020-01-31] MEDS: SODIUM CHLORIDE 0.9% 1,000 ML 1000 ML IV (18:37)
[2020-01-31] MEDS: KETOROLAC 60 MG/2 ML VIAL 15 MG IV (18:37)
[2020-01-31 18:49] LABS: Lactate (Lactic Acid) 2.5 mmol/L (0.7-2.1)
[2020-01-31 18:50] LABS: Add Manual Diff / Slide Review NO; Alanine Aminotransferase 24 IU/L (<50); Albumin Globulin Ratio 1.4 (1.0-2.8); Alkaline Phosphatase 110 U/L (38-126); Aspartate Aminotransferase 20 IU/L (17-59); BUN Creatinine Ratio 16.7 (6-22); Basophils Absolute Auto 200 /uL (0-100); Basophils Percent Auto 1.4 % (0-2); Blood Urea Nitrogen 11 mg/dL (9-20); Carbon Dioxide 25 mmol/L (22-32); Chloride 99 mmol/L (98-107); Eosinophils Absolute Auto 200 /uL (0-450); Eosinophils Percent Auto 1.4 % (2-4); Estimated Glomerular Filt Rate > 60.0 mL/min (>60); Globulin 2.8 g/dL (1.7-4.1); Glucose 351 mg/dL (70-100); HEMOLYSIS < 15 (0-50); Hematocrit 43.7 % (41-53); Hemoglobin 14.8 g/dL (13.5-17.5); Lymphocytes Absolute Auto 1700 /uL (1100-4500); Lymphocytes Percent Auto 12.6 % (25-40); Mean Corpuscular HGB Conc 33.8 % (30-36); Monocytes Absolute Auto 900 /uL (0-900); Monocytes Percent Auto 6.3 % (3-14); Neutrophils Absolute Auto 10800 /uL (1500-7000); Neutrophils Percent Auto 78.3 % (50-75); Platelet Count 169 X10^3/uL (150-400); Potassium 4.4 mmol/L (3.4-5.1); Red Blood Cell Count 5.09 X10^6/uL (4.5-5.9); Red Cell Distribution Width 13.8 % (11.6-14.8); Sodium 134 mmol/L (137-145); Total Protein 6.8 g/dL (6.3-8.2); White Blood Cell Count 13.8 X10^3/uL (4.5-11.0)
--- NOTE | 2020-01-31 19:07 | DI.CT.S_ITS ---
PROCEDURE: CT PELVIS W CON INDICATIONS: Perineum pain radiating to thigh, rectal abscess? TECHNIQUE: After the administration of intravenous contrast, 5 mm thick sections acquired from the iliac crests to the symphysis. 5 mm coronal and sagittal reformats were acquired. For radiation dose reduction, the following was used: automated exposure control, adjustment of mA and/or kV according to patient size. COMPARISON: [facility], CT, PELVIS WITH CONTRAST, 07/21/2011, 9:57. FINDINGS: Image quality: Excellent. Peritoneum and bowel: Visualized bowel loops demonstrate normal wall thickness and caliber. The appendix is normal in appearance. No perirectal or perianal fluid collections to suggest an abscess. No free air. Genitourinary: Bladder wall thickness is normal. Nodes and vessels: No iliac, pelvic, or inguinal adenopathy by size criteria. Iliac vessels demonstrate normal size and enhancement. Bones: No suspicious bony lesions. Miscellaneous: No inguinal hernias. There is mild fat stranding and trace fluid in the right inguinal fossa extending into the right inguinal canal which demonstrates mild wall thickening and minimal fat stranding. No discrete loculated fluid collections. No soft tissue gas. IMPRESSION: 1. Mild fat stranding and trace fluid in the right inguinal fossa extending into the right inguinal canal with mild wall thickening and inflammatory fat stranding. The findings are compatible with a mild infectious or inflammatory process. No discrete abscess collection identified. 2. No soft tissue gas or perineal skin thickening to suggest Nathalia's gangrene. 3. No perirectal or perianal abscess collections. Dictated by: Cameron Fishman M.D. on 01/31/2020 at 19:55 Approved by: Cameron Fishman M.D. on 01/31/2020 at 20:04
--- NOTE | 2020-01-31 19:11 | ED_ITS ---
HPI - Extremity Problem <FOREIGN Rodgers - Last Filed: 01/31/20 22:56> General Chief complaint: Extremity Problem,Nontraumatic Stated complaint: pain right leg, thigh and hip area Time Seen by Provider: 01/31/20 17:42 Source: patient and family Mode of arrival: Family Vehicle Limitations: no limitations History of Present Illness HPI Narrative: This is a 49-year-old male, nonsmoker, who is obese and has history of anal cyst and had a surgery 3-4 years ago, right groin hernia with chronic pain, diabetes, hypertension, hyperlipidemia presents to ED with his mother with chief complain of pain in perineum and right buttock region which occasionally radiating to right inner thigh. Patient denies history of trauma or injury. Onset of pain about 3-4 days ago and it has progressively gotten worse and last 2 pain had radiated to right buttock. Patient has chills and hot flashes but reports all the time . Temperature today when he came in to ED was 99.2 and mother reports he usually runs low temperature. Patient reports pain worsens with sitting, movement and putting pressure on it. Patient was in bed all day and did not walk or move much according to mother. Patient denies saddle anesthesia, incontinence for bladder or stool. Patient denies urinary retention and reports had voided before coming into ED. patient had bowel movements this morning and it was painful. Patient denies tingling/numbness/weakness to lower extremities. Related Data Home Medications Medication Instructions Recorded Confirmed linagliptin [Tradjenta] 5 mg PO #0 01/29/17 11/11/19 glimepiride 4 mg tablet 4 mg PO QAM 10/14/18 11/11/19 atorvastatin 40 mg tablet mg PO 08/25/19 11/11/19 Previous Rx's Medication Instructions Recorded [TRUE METRIX TEST STR] See Rx Instructions SUBCUT QDAY 02/15/18 #100 strip losartan 50 mg tablet 50 mg PO DAILY #90 tab 10/11/18 metformin 1,000 mg tablet 1,000 mg PO BIDCC #180 tab 05/01/19 gabapentin 800 mg tablet 800 mg PO TID #135 tab 07/22/19 cyclobenzaprine 10 mg tablet 10 mg PO BID PRN #60 tab 09/26/19 Disabled Parking Permit #1 ea 01/09/20 hydrocodone 7.5 mg-acetaminophen 1 tab PO Q6H PRN #100 tab 01/09/20 325 mg tablet levofloxacin 500 mg PO DAILY 7 Days tab 01/31/20 Allergies Allergy/AdvReac Type Severity Reaction Status Date / Time lisinopril AdvReac Severe cough Verified 01/31/20 17:48 oxycodone AdvReac Severe Rage Verified 01/31/20 17:48 Review of Systems <FOREIGN Rodgers - Last Filed: 01/31/20 22:56> Review of Systems Narrative: General: See HPI HEENT: Denies sinus pain, ear pain, sore throat, difficulty swallowing, dizziness. Respiratory: Denies dyspnea, cough, wheezing, hemoptysis, sputum. Cardiovascular: Denies chest pain, palpitations, orthopnea, edema. Gastrointestinal: Denies nausea, vomiting, abdominal pain, diarrhea, c onstipation, melena. : See HPI Musculoskeletal: See HPI Skin: Denies rash, skin lesions, or other. Neurologic: Denies weakness, headache, numbness, change in speech, confusion, seizures, incoordination. Psychiatric: No concerning psychosocial issues. 12-point review of systems is negative except for those stated above. Patient History <FOREIGN Rodgers - Last Filed: 01/31/20 22:56> Medical History Carpal tunnel syndrome (Chronic Unknown) Chronic pain syndrome (Chronic Unknown) Chronic right lower quadrant pain (Chronic 12/10/15) Chronic right shoulder pain (Chronic) CTS (carpal tunnel syndrome) (Acute) Diabetes (Chronic Unknown) Hx of tendinitis (Resolved ~2016) Neuropathic pain (Chronic) Other chronic postprocedural pain (Chronic) Primary insomnia (Chronic 03/13/16) Right-sided thoracic back pain (Acute) Shoulder pain (Resolved 2010) Uncomplicated opioid dependence (Chronic 03/06/17) Uncomplicated opioid dependence (Chronic) Surgical History Hx of hernia repair (Resolved 2005) Family History Brother Age: 52 Diabetes mellitus Father Essential hypertension Other Primary insomnia Social History Smoking Status: Never smoker alcohol intake: current substance use type: does not use Smoking Status: Never smoker alcohol intake frequency: 0-2 drinks per day Substance Use Type: does not use Exam <FOREIGN Rodgers - Last Filed: 01/31/20 22:56> Narrative Exam Narrative: GEN: Alert, oriented x 3, well appearing and nourished, and in mild distress from pain. Head: Normal cephalic, atraumatic. No scalp or temporal tenderness, palpable mass or rash. EYES: Pupils are equal, round, and reactive to light and accommodation. Extraocular muscles are intact bilaterally. There is no subconjunctival hemorrhage, exudate and sclera non-icteric. ENT: Hearing grossly intact. Nose without bleeding, purulent discharge or deviation. Airway patent. Neck: Trachea in midline. No JVD, non-tender without lymphadenopathy. No mas ses or thyroid megaly. Supple, non-tender and no meningeal signs. CARDIAC: Normal regular rate and rhythm without murmurs, gallops, or rubs. No chest wall tenderness. No peripheral edema, cyanosis or pallor. Capillary refill is less than 2 seconds. RESPIRATORY: Lungs are clear to auscultate bilaterally. No cough, wheezes, rales, or rhonchi. No stridor, respiratory distress, increase work of breathing, or accessary muscle used. ABD: Abdomen soft, nontender and non-distended. No guarding or rebound tenderness to palpate. Bowel sounds are normal in all 4 quadrants. There is no palpable masses or organomegaly. EXT: Full painless ROM of all extremities with no loss of sensation, strength, effusion or edema. SKIN: Small redness to left groin without drainage. No pain to palpate. Warm, dry, normal color for patient. No erythema, lesions or rash over visible areas. BACK: Nontender without deformity or crepitance. No flank tenderness. NEUROLOGICAL: Alert and oriented to place, time and person. Sensation and motor function intact bilaterally. No facial droops, dysphasia. PSYCHIATRIC: Good judgement and reason, without hallucinations, abnormal affect or abnormal behaviors during the examination. Patient is not suicidal. Initial Vital Signs Initial Vital Signs: Vital Signs Temperature 99.2 F 01/31/20 17:41 Pulse Rate 116 H 01/31/20 17:41 Respiratory Rate 20 01/31/20 17:41 Blood Pressure 126/87 01/31/20 17:41 Pulse Oximetry 95 01/31/20 17:41 Penis: normal penis, not edematous, not erythematous, no masses and no nodules Scrotum: scrotum normal, no ecchymosis, no masses and no scrotal swelling Testes: normal Other: Perineum without erythema, edema or warmth to touch. Rectal exam without mass to palpate or ronny blood. Back/Spine/Pelvis Sacrum: no ecchymosis, no erythema, no swelling and tenderness on the right Coccyx: no swelling and tenderness on direct palpation (Right side) and on rectal exam <Fareed Powell DO - Last Filed: 01/31/20 22:58> Initial Vital Signs Initial Vital Signs: Vital Signs Temperature 99.2 F 01/31/20 17:41 Pulse Rate 116 H 01/31/20 17:41 Respiratory Rate 01/31/20 17:41 Blood Pressure 126/87 01/31/20 17:41 Pulse Oximetry 95 01/31/20 17:41 Scores <FOREIGN Rodgers - Last Filed: 01/31/20 22:56> GCS [place] coma scale eye opening: Spontaneous [place] coma scale verbal response: Orientated [place] coma scale motor response: Obey commands [place] coma scale total score: 15 qSOFA Altered Mental Status (GCS <15): No Respiratory rate greater than/equal to 22: No Systolic blood pressure less than or equal to 100: No qSOFA Total: 0 0-1 Not High Risk 1-3 High risk Course <FOREIGN Rodgers - Last Filed: 01/31/20 22:56> Orders Ordered: ED Orders 01/31/20 18:31 Complete Blood Count AUTO DIFF Stat Comprehensive Metabolic Panel Stat Lactate (Lactic Acid) Stat Procalcitonin Stat 01/31/20 19:07 CT pelvis w con Stat 01/31/20 20:21 Blood Culture Stat Discontinued Medications Sodium Chloride (Normal Saline 0.9%) 1,000 mls @ 1,000 mls/hr IV BOLUS ONE Stop: 01/31/20 18:59 Last Infusion: 01/31/20 19:32 Dose: 0 mls/hr Documented by: Admin: 01/31/20 18:37 Dose: 1,000 mls/hr Documented by: ELIECER Sodium Chloride (Normal Saline 0.9%) 2,259 mls @ 753 mls/hr 30 ml/kg infuse over 3 hr (2259 ml) IV NOW ONE Stop: 01/31/20 22:13 Last Infusion: 01/31/20 22:08 Dose: 0 mls/hr Documented by: Admin: 01/31/20 19:31 Dose: 753 mls/hr Documented by: DAYANARA Ceftriaxone Sodium/Dextrose (Rocephin) 1 gm in 50 mls @ 100 mls/hr IV NOW ONE Stop: 01/31/20 20:26 Last Infusion: 01/31/20 20:59 Dose: 0 mls/hr Documented by: Admin: 01/31/20 20:18 Dose: 100 mls/hr Documented by: CRISTOBAL Ketorolac Tromethamine (Toradol) 15 mg IV NOW ONE Stop: 01/31/20 18:01 Last Admin: 01/31/20 18:37 Dose: 15 mg Documented by: ELIECER Levofloxacin (Levaquin) 500 mg PO NOW ONE Stop: 01/31/20 21:20 Last Admin: 01/31/20 21:26 Dose: 500 mg Documented by: CRISTOBAL Reevaluation(s) Reevaluation #1: Normal saline 30 mL per/kg on ideal body weight ordered for elevated Lactate 2.5, WBC 13.8 , tachycardia 117 bmp and concerns for sepsis. Time: 19:13 Reevaluation #2: Patient reports pain slightly improved and rates as 4 to 5/10. Declines additional medications. Informed waiting for CT results and reviewed lab test results. Time: 19:49 Reevaluation #3: blood cultures 2 sets ordered and Rocephin 1 g IV antibiotic medication ordered awaiting for CT results. Time: 20:01 Vital Signs Vital signs: Vital Signs - 8 hr 01/31/20 17:41 01/31/20 18:43 01/31/20 18:45 Temperature 99.2 F Pulse Rate 116 H 99 H 99 H Respiratory Rate 20 Blood Pressure 126/87 134/95 H Pulse Oximetry 95 94 96 01/31/20 19:00 01/31/20 19:30 01/31/20 19:31 Temperature Pulse Rate 100 H 104 H 105 H Respiratory Rate Blood Pressure 141/92 H 151/82 H Pulse Oximetry 92 93 93 01/31/20 19:35 01/31/20 20:00 01/31/20 20:30 Temperature 98.2 F Pulse Rate 102 H 90 Respiratory Rate Blood Pressure 138/81 143/85 H Pulse Oximetry 93 94 01/31/20 21:00 01/31/20 21:30 01/31/20 22:00 Temperature Pulse Rate 93 H 95 H 91 H Respiratory Rate 18 19 Blood Pressure 137/85 140/96 H Pulse Oximetry 95 96 99 <Fareed Powell, DO - Last Filed: 01/31/20 22:58> Orders Ordered: ED Orders 01/31/20 18:31 Complete Blood Count AUTO DIFF Stat Comprehensive Metabolic Panel Stat Lactate (Lactic Acid) Stat Procalcitonin Stat 01/31/20 19:07 CT pelvis w con Stat 01/31/20 20:21 Blood Culture Stat Discontinued Medications Sodium Chloride (Normal Saline 0.9%) 1,000 mls @ 1,000 mls/hr IV BOLUS ONE Stop: 01/31/20 18:59 Last Infusion: 01/31/20 19:32 Dose: 0 mls/hr Documented by: Admin: 01/31/20 18:37 Dose: 1,000 mls/hr Documented by: ELIECER Sodium Chloride (Normal Saline 0.9%) 2,259 mls @ 753 mls/hr 30 ml/kg infuse over 3 hr (2259 ml) IV NOW ONE Stop: 01/31/20 22:13 Last Infusion: 01/31/20 22:08 Dose: 0 mls/hr Documented by: Admin: 01/31/20 19:31 Dose: 753 mls/hr Documented by: DAYANARA Ceftriaxone Sodium/Dextrose (Rocephin) 1 gm in 50 mls @ 100 mls/hr IV NOW ONE Stop: 01/31/20 20:26 Last Infusion: 01/31/20 20:59 Dose: 0 mls/hr Documented by: Admin: 01/31/20 20:18 Dose: 100 mls/hr Documented by: CRISTOBAL Ketorolac Tromethamine (Toradol) 15 mg IV NOW ONE Stop: 01/31/20 18:01 Last Admin: 01/31/20 18:37 Dose: 15 mg Documented by: ELIECER Levofloxacin (Levaquin) 500 mg PO NOW ONE Stop: 01/31/20 21:20 Last Admin: 01/31/20 21:26 Dose: 500 mg Documented by: CRISTOBAL Vital Signs Vital signs: Vital Signs - 8 hr 01/31/20 17:41 01/31/20 18:43 01/31/20 18:45 Temperature 99.2 F Pulse Rate 116 H 99 H 99 H Respiratory Rate 20 Blood Pressure 126/87 134/95 H Pulse Oximetry 95 94 96 01/31/20 19:00 01/31/20 19:30 01/31/20 19:31 Temperature Pulse Rate 100 H 104 H 105 H Respiratory Rate Blood Pressure 141/92 H 151/82 H Pulse Oximetry 92 93 93 01/31/20 19:35 01/31/20 20:00 01/31/20 20:30 Temperature 98.2 F Pulse Rate 102 H 90 Respiratory Rate Blood Pressure 138/81 143/85 H Pulse Oximetry 93 94 01/31/20 21:00 01/31/20 21:30 01/31/20 22:00 Temperature Pulse Rate 93 H 95 H 91 H Respiratory Rate 18 19 Blood Pressure 137/85 140/96 H Pulse Oximetry 95 96 99 MDM - Extremity (Nontraumatic) <FOREIGN Rodgers - Last Filed: 01/31/20 22:56> Differential Diagnosis Differential diagnosis: Likely cellulitis and other (Perianal/rectal abscess, pyelonephritis, musculoskeletal back pain) Medical Records Attestation: I reviewed the patient's medical records. Lab Data Attestation: I reviewed the patient's lab results. Result diagrams: 01/31/20 18:31 01/31/20 18:31 Labs: Lab Results 01/31/20 01/31/20 01/31/20 Range/Units 18:31 18:31 18:31 WBC 13.8 H (4.5-11.0) X10^3/uL RBC 5.09 (4.5-5.9) X10^6/uL Hgb 14.8 (13.5-17.5) g/dL Hct 43.7 (41-53) % MCV 86.0 (80-100) fL MCH 29.0 (26-34) PG MCHC 33.8 (30-36) % RDW 13.8 (11.6-14.8) % Plt Count 169 (150-400) X10^3/uL Neut % (Auto) 78.3 H (50-75) % Lymph % (Auto) 12.6 L (25-40) % [place] % (Auto) 6.3 (3-14) % Eos % (Auto) 1.4 L (2-4) % Baso % (Auto) 1.4 (0-2) % Neut # (Auto) 02041 H (3067-3204) /uL Lymph # (Auto) 1700 (3647-5677) /uL [place] # (Auto) 900 (0-900) /uL Eos # (Auto) 200 (0-450) /uL Baso # (Auto) 200 H (0-100) /uL Sodium 134 L (137-145) mmol/L Potassium 4.4 (3.4-5.1) mmol/L Chloride 99 (98-107) mmol/L Carbon Dioxide 25 (22-32) mmol/L BUN 11 (9-20) mg/dL Creatinine 0.66 (0.66-1.25) mg/dL Estimated GFR > 60.0 (>60) mL/min BUN/Creatinine Ratio 16.7 (6-22) Glucose 351 H (70-100) mg/dL Lactate (0.7-2.1) mmol/L Calcium 9.0 (8.4-10.2) mg/dL Total Bilirubin 1.0 (0.2-1.3) mg/dL AST 20 (17-59) IU/L ALT 24 (<50) IU/L Alkaline Phosphatase 110 (38-126) U/L Total Protein 6.8 (6.3-8.2) g/dL Albumin 4.0 (3.5-5.0) g/dL Globulin 2.8 (1.7-4.1) g/dL Albumin/Globulin Ratio 1.4 (1.0-2.8) Procalcitonin < 0.05 (<0.5) ng/mL 01/31/20 01/31/20 Range/Units 18:31 20:55 WBC (4.5-11.0) X10^3/uL RBC (4.5-5.9) X10^6/uL Hgb (13.5-17.5) g/dL Hct (41-53) % MCV (80-100) fL MCH (26-34) PG MCHC (30-36) % RDW (11.6-14.8) % Plt Count (150-400) X10^3/uL Neut % (Auto) (50-75) % Lymph % (Auto) (25-40) % [place] % (Auto) (3-14) % Eos % (Auto) (2-4) % Baso % (Auto) (0-2) % Neut # (Auto) (7005-7422) /uL Lymph # (Auto) (7990-5906) /uL [place] # (Auto) (0-900) /uL Eos # (Auto) (0-450) /uL Baso # (Auto) (0-100) /uL Sodium (137-145) mmol/L Potassium (3.4-5.1) mmol/L Chloride (98-107) mmol/L Carbon Dioxide (22-32) mmol/L BUN (9-20) mg/dL Creatinine (0.66-1.25) mg/dL Estimated GFR (>60) mL/min BUN/Creatinine Ratio (6-22) Glucose (70-100) mg/dL Lactate 2.5 H 1.2 (0.7-2.1) mmol/L Calcium (8.4-10.2) mg/dL Total Bilirubin (0.2-1.3) mg/dL AST (17-59) IU/L ALT (<50) IU/L Alkaline Phosphatase (38-126) U/L Total Protein (6.3-8.2) g/dL Albumin (3.5-5.0) g/dL Globulin (1.7-4.1) g/dL Albumin/Globulin Ratio (1.0-2.8) Procalcitonin (<0.5) ng/mL Urine Dip Bedside Urine Glucose 500 mg/dl Bedside Urine Bilirubin - Negative Bedside Urine Ketone +/- 5 Urine Specific [place] 1.005 Bedside Urine Occult Blood - Negative Bedside Urine pH 5.0 Bedside Urine Protein + 30 Bedside Urine Urobilinogen - Negative Bedside Urine Nitrite - Negative Bedside Urine Leukocytes - Negative Esterase Imaging Data CT-Pelvis: Radiologist's Impression: [address] [address] [address] Scan Report Signed Patient: José Starr TMR#: [id number] : 1970Acct:[id number] Age/Sex: 49 / MDate of Service: 01/31/20 Loc: ED Accession Number: [id number] Procedure: CT pelvis w con Ordering Provider: Kash Lofton PROCEDURE: CT PELVIS W CON INDICATIONS: Perineum pain radiating to thigh, rectal abscess? TECHNIQUE: After the administration of intravenous contrast, 5 mm thick sections acquired from the iliac crests to the symphysis. 5 mm coronal and sagittal reformats were acquired. For radiation dose reduction, the following was used: automated exposure control, adjustment of mA and/or kV according to patient size. COMPARISON: [facility], CT, PELVIS WITH CONTRAST, 07/21/2011, 9:57. FINDINGS: Image quality: Excellent. Peritoneum and bowel: Visualized bowel loops demonstrate normal wall thickness and caliber. The appendix is normal in appearance. No perirectal or perianal fluid collections to suggest an abscess. No free air. Genitourinary: Bladder wall thickness is normal. Nodes and vessels: No iliac, pelvic, or inguinal adenopathy by size criteria. Iliac vessels demonstrate normal size and enhancement. Bones: No suspicious bony lesions. Miscellaneous: No inguinal hernias. There is mild fat stranding and trace fluid in the right inguinal fossa extending into the right inguinal canal which demonstrates mild wall thickening and minimal fat stranding. No discrete loculated fluid collections. No soft tissue gas. IMPRESSION: 1. Mild fat stranding and trace fluid in the right inguinal fossa extending into the right inguinal canal with mild wall thickening and inflammatory fat stranding. The findings are compatible with a mild infectious or inflammatory process. No discrete abscess collection identified. 2. No soft tissue gas or perineal skin thickening to suggest Nathalia's gangrene. 3. No perirectal or perianal abscess collections. Dictated by: Cameron Fishman M.D. on 01/31/2020 at 19:55 Approved by: Cameron Fishman M.D. on 01/31/2020 at 20:04 [facility] Narrative Medical decision making narrative: This is a 49-year-old gentleman who presents to ED with right-sided perineum and buttock pain for last 3-4 days which has been progressively worsen. Patient has chronic pain on right groin after removal of inguinal hernia. Also patient states has history of anal cyst. Patient's temperature on to ED was 99.2 with heart rate of 116. No increase in respiration rate or hypo tension. Patient reports his heart rate is usually fast and previous visits to ED shows slight tachycardia of 100's. Physical exam and rectal exam was unremarkable. Patient denies saddle anesthesia or incontinence. Patient reports he has chills and hot flashes but this is not new findings. Slightly elevated white count of 13.8 and neutrophils of 78.3%. Lactate of 2.5. Elevated blood sugar of 351 and unremarkable other chemistry tests. Negative elevation in procalcitonin. Patient started on 30ml/kg (IBW) IV fluid infusion for possible sepsis. Concerned for perianal or rectal abscess and pelvis CT with contrast was ordered and obtained. No inguinal hernia but mild fat stranding and trace fluid in right inguinal fossa extending to right inguinal canal with mild wall thickening concerns for early infection or inflammatory changes. There is no abscess collection appreciated. Normal appendix. No perirectal or perianal fluid collection suggestive of abscess. No free fluid appreciated. Patient started on IV Rocephin 1 g and medicated with Levaquin 500 mg which patient discharged to home for 7 day course daily. Repeat lactate improved to 1.2. Patient reports pain is tolerable after IV Toradol. Advised to continue with [id number] Tylenol and or Motrin as needed for discomfort. Use his own [place] that he takes as needed for chronic pain for severe pain. Advised to follow-up primary care physician in couple of days for recheck and strict return precautions were discussed with patient which he verbalized understanding and in agreement with the treatment plan. Dr. Powell consulted with physical findings, lab tests, CT result for treatment plan and disposition. <Fareed Powell, DO - Last Filed: 01/31/20 22:58> Lab Data Labs: Lab Results 01/31/20 01/31/20 01/31/20 Range/Units 18:31 18:31 18:31 WBC 13.8 H (4.5-11.0) X10^3/uL RBC 5.09 (4.5-5.9) X10^6/uL Hgb 14.8 (13.5-17.5) g/dL Hct 43.7 (41-53) % MCV 86.0 (80-100) fL MCH 29.0 (26-34) PG MCHC 33.8 (30-36) % RDW 13.8 (11.6-14.8) % Plt Count 169 (150-400) X10^3/uL Neut % (Auto) 78.3 H (50-75) % Lymph % (Auto) 12.6 L (25-40) % [place] % (Auto) 6.3 (3-14) % Eos % (Auto) 1.4 L (2-4) % Baso % (Auto) 1.4 (0-2) % Neut # (Auto) 61605 H (5844-7830) /uL Lymph # (Auto) 1700 (5370-0857) /uL [place] # (Auto) 900 (0-900) /uL Eos # (Auto) 200 (0-450) /uL Baso # (Auto) 200 H (0-100) /uL Sodium 134 L (137-145) mmol/L Potassium 4.4 (3.4-5.1) mmol/L Chloride 99 (98-107) mmol/L Carbon Dioxide 25 (22-32) mmol/L BUN 11 (9-20) mg/dL Creatinine 0.66 (0.66-1.25) mg/dL Estimated GFR > 60.0 (>60) mL/min BUN/Creatinine Ratio 16.7 (6-22) Glucose 351 H (70-100) mg/dL Lactate (0.7-2.1) mmol/L Calcium 9.0 (8.4-10.2) mg/dL Total Bilirubin 1.0 (0.2-1.3) mg/dL AST 20 (17-59) IU/L ALT 24 (<50) IU/L Alkaline Phosphatase 110 (38-126) U/L Total Protein 6.8 (6.3-8.2) g/dL Albumin 4.0 (3.5-5.0) g/dL Globulin 2.8 (1.7-4.1) g/dL Albumin/Globulin Ratio 1.4 (1.0-2.8) Procalcitonin < 0.05 (<0.5) ng/mL 01/31/20 01/31/20 Range/Units 18:31 20:55 WBC (4.5-11.0) X10^3/uL RBC (4.5-5.9) X10^6/uL Hgb (13.5-17.5) g/dL Hct (41-53) % MCV (80-100) fL MCH (26-34) PG MCHC (30-36) % RDW (11.6-14.8) % Plt Count (150-400) X10^3/uL Neut % (Auto) (50-75) % Lymph % (Auto) (25-40) % [place] % (Auto) (3-14) % Eos % (Auto) (2-4) % Baso % (Auto) (0-2) % Neut # (Auto) (6094-8982) /uL Lymph # (Auto) (6830-7860) /uL [place] # (Auto) (0-900) /uL Eos # (Auto) (0-450) /uL Baso # (Auto) (0-100) /uL Sodium (137-145) mmol/L Potassium (3.4-5.1) mmol/L Chloride (98-107) mmol/L Carbon Dioxide (22-32) mmol/L BUN (9-20) mg/dL Creatinine (0.66-1.25) mg/dL Estimated GFR (>60) mL/min BUN/Creatinine Ratio (6-22) Glucose (70-100) mg/dL Lactate 2.5 H 1.2 (0.7-2.1) mmol/L Calcium (8.4-10.2) mg/dL Total Bilirubin (0.2-1.3) mg/dL AST (17-59) IU/L ALT (<50) IU/L Alkaline Phosphatase (38-126) U/L Total Protein (6.3-8.2) g/dL Albumin (3.5-5.0) g/dL Globulin (1.7-4.1) g/dL Albumin/Globulin Ratio (1.0-2.8) Procalcitonin (<0.5) ng/mL Urine Dip Bedside Urine Glucose 500 mg/dl Bedside Urine Bilirubin - Negative Bedside Urine Ketone +/- 5 Urine Specific [place] 1.005 Bedside Urine Occult Blood - Negative Bedside Urine pH 5.0 Bedside Urine Protein + 30 Bedside Urine Urobilinogen - Negative Bedside Urine Nitrite - Negative Bedside Urine Leukocytes - Negative Esterase Discharge Plan Departure Patient Disposition: Home Clinical Impression: Groin pain, chronic, right Cellulitis Qualifiers: Site of cellulitis: other site Qualified Code(s): L03.818 - Cellulitis of other sites Discharge Date/Time: 01/31/20 22:12 Instructions: DI for Cellulitis -- Adult, DI for Abdominal Pain-Adult Activity Restrictions/Additional Instructions: You have been diagnosed with [ right groin pain radiating to buttock. Slightly elevated white count and lactate indicating infection. Second lactate has improved to normal level. Normal procalcitonin. Blood cultures pending. CT of Pelvis indicates early infection or inflammatory process in right inguinal fossa extending to inguinal canal without obvious abscess in perirectal or pe rianal. Normal appendix. You have received IV fluids, IV Rocephin. Also received Levaquin 500 mg. You have elevated blood glucose today.]. What to do: *Take your medications as directed. Please continue with Levaquin daily for next 7 days. Start tomorrow evening since you have received the 1st dose in ED tonight. *Follow up with your primary care provider in 2-3 days, call for an appointment. Let them know you were seen in the ED and that we asked you to be seen in follow up. *Return to ED if you have any new, worsening, or concerning symptoms, such as [worsening pain, fever, chills, unable to tolerate fluids, breathing difficulty, redness/swelling/warmth to groin or perineum or any acute concerns]. Prescriptions: New levofloxacin 500 mg tablet 500 mg PO DAILY 7 Days RF: 0 No Action linagliptin [Tradjenta] 5 MG tablet 5 mg PO Qty: 0 RF: 0 [TRUE METRIX TEST STR] See Rx Instructions SUBCUT QDAY Qty: 100 RF: 2 gabapentin 800 mg tablet 800 mg PO TID Qty: 135 RF: 5 cyclobenzaprine 10 mg tablet 10 mg PO BID PRN (Reason: muscle spasm) Qty: 60 RF: 5 (DME) Disabled Parking Permit Qty: 1 RF: 0 hydrocodone-acetaminophen 7.5-325 mg tablet 1 tab PO Q6H PRN (Reason: pain) Qty: 100 RF: 0 losartan 50 mg tablet 50 mg PO DAILY Qty: 90 RF: 0 metformin 1,000 mg tablet 1,000 mg PO BIDCC Qty: 180 RF: 1 atorvastatin 40 mg tablet PO RF: 0 glimepiride 4 mg tablet 4 mg PO QAM RF: 0 Referrals: Oswaldo Pickering MD [Primary Care Provider] - <Fareed Powell DO - Last Filed: 01/31/20 22:58> Cosign ED Attending Cosignature Attestation: Dr Powell Co-Sign Statement: I was available for consultation during this patient's emergency department visit. This chart is signed by myself for administrative purposes only. I did not have direct contact with this patient during this visit. They were seen independently by the [facility].
[2020-01-31 19:29] LABS: Procalcitonin < 0.05 ng/mL (<0.5)
[2020-01-31] MEDS: SODIUM CHLORIDE 0.9% 2,259 ML 753 ML IV (19:31)
[2020-01-31] MEDS: CEFTRIAXONE 1 GM/50 ML FROZ.PIGGY IV (20:18)
[2020-01-31 20:37] LABS: Reflexed Lactate in 2 Hours Y
[2020-01-31 21:11] LABS: Lactate 2HR (Lactic Acid Rflx) 1.2 mmol/L (0.7-2.1)
[2020-01-31] MEDS: levoFLOXacin 250 MG TABLET 500 MG PO (21:26)
== END 2020-01-31 22:12 | disposition home or self-care (01) ==
PROVIDERS: Emergency Provider Nurse Practitioner Family; Family Provider Student in an Organized Health Care Education/Training Program; PCP Student in an Organized Health Care Education/Training Program
DX: L03.818 Cellulitis of other sites (principal)
CPT/HCPCS: 36415; 72193; 80053; 81003; 83605; 84145; 85025; 87040; 96361; 96365; 96375; 99284; J1885; Q9967

== ENCOUNTER → 2020-05-18 13:35 | Outpatient (CLI) | payer OTHER, MEDICAID, SELFPAY ==
[2020-05-18 15:35] LABS: Alanine Aminotransferase 32 IU/L (<50); Albumin 4.3 g/dL (3.5-5.0); Albumin Globulin Ratio 1.6 (1.0-2.8); Alkaline Phosphatase 93 U/L (38-126); Aspartate Aminotransferase 26 IU/L (17-59); Bilirubin Total 0.8 mg/dL (0.2-1.3); Blood Urea Nitrogen 12 mg/dL (9-20); Calcium 9.2 mg/dL (8.4-10.2); Carbon Dioxide 31 mmol/L (22-32); Chloride 103 mmol/L (98-107); Cholesterol 121 mg/dL (140-199); Estimated Glomerular Filt Rate > 60.0 mL/min (>60); Globulin 2.7 g/dL (1.7-4.1); Glucose 124 mg/dL (70-100); HDL Cholesterol 48 mg/dL (40-60); HEMOLYSIS < 15 (0-50); LDL Cholesterol Calculated 36 mg/dL (<100); Potassium 4.1 mmol/L (3.4-5.1); Sodium 140 mmol/L (137-145); Triglycerides 185 mg/dL (35-150)
[2020-05-18 15:37] LABS: Hemoglobin A1C% w Est Avg Glu 9.8 % (4.0-6.0)
[2020-05-18 17:29] LABS: Creatinine Urine Random 78.2 mg/dL; Protein (Total) Urine Random 22 mg/dL (0-12); Protein Creatinine Ratio Urine 0.28 GRAM/24H
== END ==
PROVIDERS: Family Provider Student in an Organized Health Care Education/Training Program; PCP Student in an Organized Health Care Education/Training Program; Referring Provider Nurse Practitioner Family; Visit Provider Nurse Practitioner Family
DX: E11.65 Type 2 diabetes mellitus with hyperglycemia (principal)
CPT/HCPCS: 36415; 80053; 80061; 82570; 83036; 84156

== ENCOUNTER → 2021-02-21 14:47 | Outpatient (CLI) | payer OTHER, MEDICAID, SELFPAY ==
[2021-02-21 16:33] LABS: Alanine Aminotransferase 25 IU/L (<50); Albumin 4.3 g/dL (3.5-5.0); Albumin Globulin Ratio 1.7 (1.0-2.8); Alkaline Phosphatase 98 U/L (38-126); Aspartate Aminotransferase 24 IU/L (17-59); BUN Creatinine Ratio 24.2 (6-22); Bilirubin Total 1.2 mg/dL (0.2-1.3); Blood Urea Nitrogen 15 mg/dL (9-20); Calcium 9.7 mg/dL (8.4-10.2); Carbon Dioxide 29 mmol/L (22-32); Chloride 101 mmol/L (98-107); Estimated Glomerular Filt Rate > 60.0 mL/min (>60); Globulin 2.6 g/dL (1.7-4.1); Glucose 269 mg/dL (70-100); HEMOLYSIS 27 (0-50); Potassium 4.9 mmol/L (3.4-5.1); Sodium 138 mmol/L (137-145); Total Protein 6.9 g/dL (6.3-8.2)
[2021-02-21 17:30] LABS: Hemoglobin A1C% w Est Avg Glu 10.9 % (4.0-6.0)
== END ==
PROVIDERS: Family Provider Student in an Organized Health Care Education/Training Program; PCP Student in an Organized Health Care Education/Training Program; Referring Provider Internal Medicine Endocrinology, Diabetes & Metabolism; Visit Provider Internal Medicine Endocrinology, Diabetes & Metabolism
DX: E11.29 Type 2 diabetes mellitus with other diabetic kidney complication (principal); R80.9 Proteinuria, unspecified; E11.69 Type 2 diabetes mellitus with other specified complication; E78.2 Mixed hyperlipidemia; I10 Essential (primary) hypertension
CPT/HCPCS: 36415; 80053; 83036

== ENCOUNTER 2021-03-23 20:27 | Emergency (ER) | payer OTHER, MEDICAID, SELFPAY ==
[2021-03-23 20:41] VITALS: BP 153/93; PULSE 105; RESP 16; TEMP 37.4; O2SAT 96; BMI 36.9
--- NOTE | 2021-03-23 21:11 | ED.DENTAL ---
HPI - Dental/Oral General Chief complaint: Dental/Oral Stated complaint: pain, broken tooth Time Seen by Provider: 03/23/21 21:11 Source: patient Mode of arrival: Ambulatory Limitations: no limitations History of Present Illness HPI Narrative: 50-year-old male nonsmoker with noncontributory medical history presents with family in the chief complaint of a previously fractured tooth in his right lower jaw that has been causing him pain for about the past week. He states that it was fractured sometime ago with seem to be irritated by something he ate about a week ago. Now he complains of increasing pain and trouble with hot or cold liquids. He denies any drainage or facial swelling. He has no fever or chills. He has attempted to reaches dentist but has thus far been unable Related Data Home Medications Medication Instructions Recorded Confirmed atorvastatin 40 mg tablet mg PO 08/25/19 03/03/21 flash glucose sensor (FreeStyle #1 ea 11/29/20 03/03/21 Amie 2 Sensor) duloxetine 30 mg capsule,delayed 30 mg PO DAILY 03/03/21 03/03/21 release insulin aspart U-100 100 unit/mL 10 unit SUBCUT BID ml 03/03/21 03/03/21 (3 mL) subcutaneous pen (Novolog Flexpen U-100 Insulin aspart) insulin detemir U-100 100 unit/mL 30 unit SUBCUT BEDTIME 03/03/21 03/03/21 (3 mL) subcutaneous pen Previous Rx's Medication Instructions Recorded losartan 50 mg tablet 100 mg PO DAILY #90 tab 02/03/20 cyclobenzaprine 10 mg tablet 10 mg PO BID PRN #60 tab 09/29/20 gabapentin 800 mg tablet 800 mg PO TID #135 tab 10/22/20 metformin 1,000 mg tablet 1,000 mg PO BIDCC #180 tab 12/08/20 hydrocodone 7.5 mg-acetaminophen 1 tab PO Q6H PRN #100 tab 03/11/21 325 mg tablet Allergies Allergy/AdvReac Type Severity Reaction Status Date / Time lisinopril AdvReac Severe cough Verified 03/23/21 20:44 oxycodone AdvReac Severe Rage Verified 03/23/21 20:44 Review of Systems Review of Systems Narrative: GENERAL: Denies chills, fatigue, malaise, fever, sweats. HEENT: See HPI RESPIRATORY: Denies dyspnea, cough, wheezing, hemoptysis, sputum. CARDIOVASCULAR: Denies chest pain, palpitations, orthopnea, edema, GASTROINTESTINAL: Denies nausea, vomiting, abdominal pain, diarrhea, constipation, melena. : Denies dysuria, frequency, incontinence, hematuria, urinary retention. MUSCULOSKELETAL: denies weakness, joint pain, or bony pain SKIN: Denies rash, skin lesions, or other NEUROLOGIC: Denies weakness, headache, numbness, change in speech, confusion, seizures, incoordination. PSYCHIATRIC: No concerning psychosocial issues. 12 point review of systems is negative except for those stated above Patient History Medical History Carpal tunnel syndrome (Unknown) Chronic pain syndrome (Unknown) Chronic right shoulder pain Diabetes (Unknown) Hx of tendinitis (~2016) Neuropathic pain Primary insomnia (03/13/16) Shoulder pain (2010) Uncomplicated opioid dependence (03/06/17) Uncomplicated opioid dependence Surgical History History of hernia repair (06/07/17) Hx of hernia repair (2005) Family History Brother Age: 53 Diabetes mellitus Father Essential hypertension Other Primary insomnia Social History Smoking Status: Never smoker alcohol intake: current substance use type: does not use Smoking Status: Never smoker alcohol intake frequency: 0-2 drinks per day Substance Use Type: does not use Exam Narrative Exam Narrative: GEN: AOx3 and in mild distress EYES: Pupils are equal, round, and reactive to light and accommodation. Extraoccular muscles are intact bilaterally. There is no subconjunctival hemorrhage or exudate. ENT: Poor dentition throughout. No facial swelling or erythema. Tooth #28 with fracture, no obvious or suspected abscess CHEST: Lungs are clear to auscultation bilaterally and free of wheezes, rales, or rhonchi. Heart rate is regular rhythm, there are no murmurs, clicks, rubs, or gallops. There is no chest wall tenderness. ABD: Abdomen is soft and nontender. There is no guarding or rebound. Bowel sounds are normal in all 4 quadrants. There is no mass or organomegaly. EXT: Full painless ROM of all extremities with no loss of sensation or strength. SKIN: Warm, pink, and dry. No erythema or rash Initial Vital Signs Initial Vital Signs: Vital Signs Temperature 99.4 F 03/23/21 20:41 Pulse Rate 105 H 03/23/21 20:41 Respiratory Rate 16 03/23/21 20:41 Blood Pressure 153/93 H 03/23/21 20:41 Pulse Oximetry 96 03/23/21 20:41 Procedures Nerve Block Nerve Block 1: Time out performed: Yes Local Anesthetic: bupivacaine 0.25% Amount of anesthesia used (mL): 3 Side: right Intraoral Nerve Block: inferior alveolar Procedure Successful: Yes Patient Tolerated Procedure: Well Complications: none Course Orders Ordered: Discontinued Medications Bupivacaine HCl (Bupivacaine 0.5% (Pf) Vial) 5 ml SUBCUT NOW ONE Stop: 03/23/21 22:17 Last Admin: 03/23/21 22:20 Dose: 5 ml Documented by: JOLIE Bupivacaine HCl/Epinephrine Bitart (Bupivacaine 0.5% W/ Epi (Pf) 30 Ml Vial) 5 ml SUBCUT NOW ONE Stop: 03/23/21 22:08 Last Admin: 03/23/21 22:20 Dose: Not Given Documented by: JOLIE Vital Signs Vital signs: Vital Signs - 8 hr 03/23/21 20:41 Temperature 99.4 F Pulse Rate 105 H Respiratory Rate 16 Blood Pressure 153/93 H Pulse Oximetry 96 Discharge Plan Departure Patient Disposition: Home Clinical Impression: Pain, dental Instructions: DI for Dental Pain Activity Restrictions/Additional Instructions: There is no evidence of an emergent or life threatening illness at this time, but follow up with your doctor in 1-2 days is recommended nonetheless to continue to rule out serious underlying causes of your symptoms. Please call the office for an appointment. Please return to the Emergency Department for any worsening or persistent symptoms. Please take medications as directed. Prescriptions: No Action losartan 50 mg tablet 100 mg PO DAILY Qty: 90 0RF cyclobenzaprine 10 mg tablet 10 mg PO BID PRN (Reason: muscle spasm) Qty: 60 5RF gabapentin 800 mg tablet 800 mg PO TID Qty: 135 5RF metformin 1,000 mg tablet 1,000 mg PO BIDCC Qty: 180 1RF hydrocodone-acetaminophen 7.5-325 mg tablet 1 tab PO Q6H PRN (Reason: pain) Qty: 100 0RF Rx Instructions: EXEMPT Must last 30 days (DME) FreeStyle Amie 2 Sensor Kit See Rx Instructions ea .ROUTE .MEDSUPPLY Qty: 1 0RF Rx Instructions: As directed duloxetine 30 mg capsule,delayed release(DR/EC) 30 mg PO DAILY 0RF insulin detemir U-100 100 unit/mL (3 mL) insulin pen 30 unit SUBCUT BEDTIME 0RF insulin aspart U-100 [Novolog Flexpen U-100 Insulin] 100 unit/mL (3 mL) insulin pen 10 unit SUBCUT BID 0RF atorvastatin 40 mg tablet PO 0RF Referrals: Oswaldo Pickering MD [Primary Care Provider] -
[2021-03-23] MEDS: BUPIVACAINE 0.5% (PF) VIAL 5 ML SUBCUT (22:20)
== END 2021-03-23 22:41 | disposition home or self-care (01) ==
PROVIDERS: Emergency Provider Emergency Medicine; Family Provider Student in an Organized Health Care Education/Training Program; PCP Student in an Organized Health Care Education/Training Program
DX: K03.81 Cracked tooth (principal)
CPT/HCPCS: 64450; 99281; 99283

== ENCOUNTER 2021-04-21 15:05 | Emergency (ER) | payer OTHER, MEDICAID, SELFPAY ==
[2021-04-21 15:18] VITALS: BP 147/88; PULSE 105; RESP 17; TEMP 36.1; O2SAT 99
[2021-04-21 15:50] LABS: Add Manual Diff / Slide Review NO; Basophils Absolute Auto 100 /uL (0-100); Basophils Percent Auto 1.1 % (0-2); Eosinophils Absolute Auto 200 /uL (0-450); Eosinophils Percent Auto 1.7 % (2-4); Hematocrit 46.1 % (41-53); Hemoglobin 15.8 g/dL (13.5-17.5); Lymphocytes Absolute Auto 2100 /uL (1100-4500); Lymphocytes Percent Auto 23.9 % (25-40); Mean Corpuscular HGB Conc 34.3 % (30-36); Mean Corpuscular Hemoglobin 28.9 PG (26-34); Mean Corpuscular Volume 84.2 fL (80-100); Monocytes Absolute Auto 500 /uL (0-900); Neutrophils Absolute Auto 6000 /uL (1500-7000); Neutrophils Percent Auto 67.3 % (50-75); Platelet Count 393 X10^3/uL (150-400); Red Blood Cell Count 5.48 X10^6/uL (4.5-5.9); Red Cell Distribution Width 13.5 % (11.6-14.8); White Blood Cell Count 8.9 X10^3/uL (4.5-11.0)
[2021-04-21 16:02] LABS: Alanine Aminotransferase 28 IU/L (<50); Albumin 4.6 g/dL (3.5-5.0); Albumin Globulin Ratio 1.5 (1.0-2.8); Alkaline Phosphatase 88 U/L (38-126); Aspartate Aminotransferase 39 IU/L (17-59); BUN Creatinine Ratio 18.8 (6-22); Bilirubin Total 1.8 mg/dL (0.2-1.3); Blood Urea Nitrogen 15 mg/dL (9-20); Calcium 9.4 mg/dL (8.4-10.2); Carbon Dioxide 27 mmol/L (22-32); Chloride 98 mmol/L (98-107); Estimated Glomerular Filt Rate > 60.0 mL/min (>60); Globulin 3.1 g/dL (1.7-4.1); Glucose 329 mg/dL (70-100); Lipase 276 U/L (23-300); Sodium 132 mmol/L (137-145); Total Protein 7.7 g/dL (6.3-8.2)
[2021-04-21 16:13] LABS: HEMOLYSIS 146 (0-50); Potassium 5.4 mmol/L (3.4-5.1)
--- NOTE | 2021-04-21 16:51 | DI.CT.S_ITS ---
PROCEDURE: CT ABDOMEN PELVIS W CON INDICATIONS: Abdominal pain, history of abdominal surgeries TECHNIQUE: After the administration of intravenous contrast, axial sections acquired from the lung bases to the pubic symphysis. Coronal and sagittal reformats were performed. For radiation dose reduction, the following was used: automated exposure control, adjustment of mA and/or kV according to patient size. COMPARISON: [facility] [place], CT, ABDOMEN/PELVIS WITH CONTRAST, 03/16/2016, 7:02. FINDINGS: Lower thorax: The lung bases are clear. Heart size normal. No hiatal hernia. Liver: The liver is diffusely decreased in attenuation without focal mass lesion. Biliary system: No calcified cholelithiasis or pericholecystic inflammation. No intra or extrahepatic bile duct dilatation. Pancreas: Unremarkable without mass or inflammation evident. Spleen: Normal in size and density. Adrenals: Normal morphology and density. Reproductive system: Unremarkable as visualized. Urinary system: Incidental horseshoe kidney noted no evidence of renal calculi or obstructive uropathy. No mass lesion. Gastrointestinal system: The bowel is unremarkable without evidence of bowel obstruction or inflammation. The stomach appears unremarkable. Multiple diverticula arise from the sigmoid and left colon without evidence of diverticulitis. Appendix: Normal appendix identified. No evidence of appendicitis. Peritoneal spaces: No mesenteric or retroperitoneal adenopathy. No free air. No free fluid. Vasculature: The IVC, aorta and iliac vasculature are unremarkable. Abdominal wall: Abdominal wall intact without evidence of ventral or inguinal hernias. Musculoskeletal: Normal bone mineralization. No acute fractures. IMPRESSION: 1. No acute CT findings in the abdomen and pelvis. 2. 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 Approved by: Nickolas Nieto M.D. on 04/21/2021 at 16:57
--- NOTE | 2021-04-21 16:52 | ED.ABDPAIN ---
HPI - Abdominal Pain <Houston Feliciano PA-C - Last Filed: 04/21/21 19:38> General Chief Complaint: Abdominal Pain Stated Complaint: Lump Under Skin, Near [place], Pain Time Seen by Provider: 04/21/21 16:40 Source: patient Mode of arrival: Ambulatory History of Present Illness HPI narrative: Patient is a 51-year-old male presenting to the emergency department today for an evaluation of abdominal pain. Patient states that he noticed the development of a small lump around his umbilicus on Sunday and has noted that the pain has gradually worsened. Patient states that he has a history of multiple hernia repairs that he notes have the ?complicated and failed?. Patient has also reported that he has 2 areas of mesh from prior hernia repairs. Additionally, patient states that he has felt ?sick to his stomach for the past 2 days. Patient denies fever, chills, chest pain, cough, shortness of breath, nausea, vomiting, diarrhea, dysuria, hematuria. Patient is not anticoagulated daily. Patient states that he last ate at approximately 1100 this morning. No other concerns are voiced at this time. Related Data Home Medications Medication Instructions Recorded Confirmed atorvastatin 40 mg tablet mg PO 08/25/19 04/25/21 flash glucose sensor (FreeStyle #1 ea 11/29/20 04/25/21 Amie 2 Sensor) duloxetine 30 mg capsule,delayed 30 mg PO DAILY 03/03/21 04/25/21 release insulin aspart U-100 100 unit/mL 10 unit SUBCUT BID ml 03/03/21 04/25/21 (3 mL) subcutaneous pen (Novolog Flexpen U-100 Insulin aspart) insulin detemir U-100 100 unit/mL 30 unit SUBCUT BEDTIME 03/03/21 04/25/21 (3 mL) subcutaneous pen Previous Rx's Medication Instructions Recorded losartan 50 mg tablet 100 mg PO DAILY #90 tab 02/03/20 cyclobenzaprine 10 mg tablet 10 mg PO BID PRN #60 tab 09/29/20 gabapentin 800 mg tablet 800 mg PO TID #135 tab 10/22/20 metformin 1,000 mg tablet 1,000 mg PO BIDCC #180 tab 12/08/20 hydrocodone 7.5 mg-acetaminophen 1 tab PO Q6H PRN #100 tab 04/11/21 325 mg tablet Allergies Allergy/AdvReac Type Severity Reaction Status Date / Time lisinopril AdvReac Severe cough Verified 04/25/21 16:20 oxycodone AdvReac Severe Rage Verified 04/25/21 16:20 Review of Systems <Houston Feliciano PA-C - Last Filed: 04/21/21 19:38> Constitutional Constitutional: Denies chills, Denies fatigue, Denies fever(s), Denies frequent falls, Denies lethargy and Denies weakness Eyes Eyes: Denies loss of vision ENT Ears, Nose, Mouth, and Throat: Denies dizziness and Denies neck pain Cardiovascular Cardiovascular: Denies chest pain, Denies irregular heart rhythm, Denies lightheadedness, Denies palpitations, Denies dyspnea, Denies dyspnea on exertion and Denies orthopnea Respiratory Respiratory: Denies cough, Denies dyspnea, Denies dyspnea on exertion and Denies wheezing Gastrointestinal Gastrointestinal: Reports abdominal pain (Painful mass around umbilicus), Denies change in bowel habits, Denies diarrhea, Denies nausea and Denies vomiting Genitourinary Genitourinary: Denies hematuria, Denies flank pain, Denies urinary incontinence and Denies urinary urgency Musculoskeletal Musculoskeletal: Denies back pain, Denies muscle weakness, Denies neck pain, Denies numbness and Denies tingling Integumentary/Breasts Skin/Breast: Denies pruritus, Denies erythema, Denies rash and Denies wounds Neurologic Neurologic: Denies behavioral changes, Denies confusion, Denies dizziness, Denies frequent falls, Denies loss of vision, Denies numbness, Denies tingling and Denies weakness Psychiatric Psychiatric: Denies behavioral changes and Denies confusion Endocrine Endocrine: Denies fatigue and Denies palpitations Allergic/Immunologic Allergic/Immunologic: Denies wheezing Patient History <Houston Feliciano PA-C - Last Filed: 04/21/21 19:38> Medical History Carpal tunnel syndrome (Unknown) Chronic pain syndrome (Unknown) Chronic right shoulder pain Diabetes (Unknown) Hx of tendinitis (~2016) Neuropathic pain Primary insomnia (03/13/16) Shoulder pain (2010) Uncomplicated opioid dependence (03/06/17) Uncomplicated opioid dependence Surgical History History of hernia repair (06/07/17) Hx of hernia repair (2005) Family History Brother Age: 53 Diabetes mellitus Father Essential hypertension Other Primary insomnia Social History Smoking Status: Never smoker alcohol intake: current substance use type: does not use Smoking Status: Never smoker alcohol intake frequency: 0-2 drinks per day Substance Use Type: does not use Exam <Houston Feliciano PA-C - Last Filed: 04/21/21 19:38> Narrative Exam Narrative: GENERAL: 51 year old patient appears stated age. Well-developed patient, in mild distress. HEAD: Atraumatic. Normocephalic. EYES: Pupils equal round and reactive. Extraocular motions intact. No scleral icterus. No injection or drainage. ENT: Nose without bleeding, purulent drainage. Throat without erythema, tonsillar hypertrophy or exudate. Airway patent. NECK: Trachea midline. Non tender CARDIOVASCULAR: Regular rate and rhythm without murmurs, gallops, or rubs. RESPIRATORY: Clear to auscultation. Breath sounds equal bilaterally. No wheezes, rales, or rhonchi. GASTROINTESTINAL: Abdomen soft. First surgical incisions noted on the abdomen. Tenderness to palpation appreciated along the left upper quadrant and left lower quadrant. Approximately dime size mass appreciated with palpation superior to the umbilicus with tenderness when gentle pressure applied. No masses, erythema, or ecchymosis noted. EXTREMITIES: No edema or joint tenderness. BACK: Nontender without deformity or crepitance. No flank tenderness. NEURO: AOx3. SKIN: No rash or erythema of visible areas Initial Vital Signs Initial Vital Signs: Vital Signs Temperature 96.9 F L 04/21/21 15:18 Pulse Rate 105 H 04/21/21 15:18 Respiratory Rate 17 04/21/21 15:18 Blood Pressure 147/88 H 04/21/21 15:18 Pulse Oximetry 99 04/21/21 15:18 <Sarah Beth Mliler MD - Last Filed: 04/27/21 08:15> Initial Vital Signs Initial Vital Signs: Vital Signs Temperature 96.9 F L 04/21/21 15:18 Pulse Rate 105 H 04/21/21 15:18 Respiratory Rate 17 04/21/21 15:18 Blood Pressure 147/88 H 04/21/21 15:18 Pulse Oximetry 99 04/21/21 15:18 Course <Houston Feliciano PA-C - Last Filed: 04/21/21 19:38> Course Course Narrative: CT of the abdomen pelvis with IV contrast ordered. CBC, CMP, lipase, urine dipstick ordered. Orders Ordered: ED Orders 04/21/21 15:35 Complete Blood Count AUTO DIFF Stat Comprehensive Metabolic Panel Stat Lipase Stat 04/21/21 16:51 CT abdomen pelvis w con Stat 04/21/21 18:13 Urinalysis and Microscopic Stat Vital Signs Vital signs: Vital Signs - 8 hr 04/21/21 15:18 04/21/21 17:08 04/21/21 17:25 Temperature 96.9 F L Pulse Rate 105 H 94 H 95 H Respiratory Rate 17 Blood Pressure 147/88 H 139/97 H 128/90 Pulse Oximetry 99 95 97 04/21/21 17:30 04/21/21 18:00 04/21/21 18:21 Temperature Pulse Rate 100 H 105 H 99 H Respiratory Rate Blood Pressure 117/81 127/80 118/92 H Pulse Oximetry 95 92 96 <Sarah Beth Miller MD - Last Filed: 04/27/21 08:15> Orders Ordered: ED Orders 04/21/21 15:35 Complete Blood Count AUTO DIFF Stat Comprehensive Metabolic Panel Stat Lipase Stat 04/21/21 16:51 CT abdomen pelvis w con Stat 04/21/21 18:13 Urinalysis and Microscopic Stat Vital Signs Vital signs: Vital Signs - 8 hr 04/21/21 15:18 04/21/21 17:08 04/21/21 17:25 Temperature 96.9 F L Pulse Rate 105 H 94 H 95 H Respiratory Rate 17 Blood Pressure 147/88 H 139/97 H 128/90 Pulse Oximetry 99 95 97 04/21/21 17:30 04/21/21 18:00 04/21/21 18:21 Temperature Pulse Rate 100 H 105 H 99 H Respiratory Rate Blood Pressure 117/81 127/80 118/92 H Pulse Oximetry 95 92 96 MDM - Abdominal Pain <VALENTÍN Anguiano Last Filed: 04/21/21 19:38> Lab Data Result diagrams: 04/21/21 15:35 04/21/21 15:35 Labs: Lab Results 04/21/21 04/21/21 04/21/21 Range/Units 15:35 15:35 18:13 WBC 8.9 (4.5-11.0) X10^3/uL RBC 5.48 (4.5-5.9) X10^6/uL Hgb 15.8 (13.5-17.5) g/dL Hct 46.1 (41-53) % MCV 84.2 (80-100) fL MCH 28.9 (26-34) PG MCHC 34.3 (30-36) % RDW 13.5 (11.6-14.8) % Plt Count 393 (150-400) X10^3/uL Neut % (Auto) 67.3 (50-75) % Lymph % (Auto) 23.9 L (25-40) % [place] % (Auto) 6.0 (3-14) % Eos % (Auto) 1.7 L (2-4) % Baso % (Auto) 1.1 (0-2) % Neut # (Auto) 6000 (7808-4307) /uL Lymph # (Auto) 2100 (4417-9880) /uL [place] # (Auto) 500 (0-900) /uL Eos # (Auto) 200 (0-450) /uL Baso # (Auto) 100 (0-100) /uL Sodium 132 L (137-145) mmol/L Potassium 5.4 H (3.4-5.1) mmol/L Chloride 98 (98-107) mmol/L Carbon Dioxide 27 (22-32) mmol/L BUN 15 (9-20) mg/dL Creatinine 0.80 (0.66-1.25) mg/dL Estimated GFR > 60.0 (>60) mL/min BUN/Creatinine Ratio 18.8 (6-22) Glucose 329 H (70-100) mg/dL Calcium 9.4 (8.4-10.2) mg/dL Total Bilirubin 1.8 H (0.2-1.3) mg/dL AST 39 (17-59) IU/L ALT 28 (<50) IU/L Alkaline Phosphatase 88 (38-126) U/L Total Protein 7.7 (6.3-8.2) g/dL Albumin 4.6 (3.5-5.0) g/dL Globulin 3.1 (1.7-4.1) g/dL Albumin/Globulin Ratio 1.5 (1.0-2.8) Lipase 276 (23-300) U/L Urine Color Yellow Urine Appearance Clear Urine pH 6.5 (4.5-8.0) Ur Specific [place] <=1.005 (1.000-1.035) Urine Protein 1+ H (Negative) Urine Glucose (UA) 2+ H (Negative) g/dL Urine Ketones Trace H (NEGATIVE) Urine Occult Blood Negative (Negative) Urine Nitrate Negative (Negative) Urine Bilirubin Negative (NEGATIVE) Urine Urobilinogen 0.2 (0.2) E.U./dL Ur Leukocyte Esterase Negative (NEGATIVE) Urine RBC None seen (0-5/HPF) Urine WBC 0-1/hpf (0-5/HPF) Ur Squamous Epith Cells 0-1 /hpf (0-5/HPF) Ur Transition Epith Cell Ur Renal Epithelial Cell Calcium Oxalate Crystal Uric Acid Crystals Triple Phos Crystals Other Crystals Amorphous Sediment Urine Bacteria None seen (None) Hyaline Casts Granular Casts RBC Casts WBC Casts Other Casts Urine Mucus Urine Trichomonas Urine Yeast Urine Sperm 1 to 3 per hpf Ur Culture Indicated? Cult not indicated Micro UA Comment 04/21/21 Range/Units 18:13 WBC (4.5-11.0) X10^3/uL RBC (4.5-5.9) X10^6/uL Hgb (13.5-17.5) g/dL Hct (41-53) % MCV (80-100) fL MCH (26-34) PG MCHC (30-36) % RDW (11.6-14.8) % Plt Count (150-400) X10^3/uL Neut % (Auto) (50-75) % Lymph % (Auto) (25-40) % [place] % (Auto) (3-14) % Eos % (Auto) (2-4) % Baso % (Auto) (0-2) % Neut # (Auto) (8483-9164) /uL Lymph # (Auto) (7952-6474) /uL [place] # (Auto) (0-900) /uL Eos # (Auto) (0-450) /uL Baso # (Auto) (0-100) /uL Sodium (137-145) mmol/L Potassium (3.4-5.1) mmol/L Chloride (98-107) mmol/L Carbon Dioxide (22-32) mmol/L BUN (9-20) mg/dL Creatinine (0.66-1.25) mg/dL Estimated GFR (>60) mL/min BUN/Creatinine Ratio (6-22) Glucose (70-100) mg/dL Calcium (8.4-10.2) mg/dL Total Bilirubin (0.2-1.3) mg/dL AST (17-59) IU/L ALT (<50) IU/L Alkaline Phosphatase (38-126) U/L Total Protein (6.3-8.2) g/dL Albumin (3.5-5.0) g/dL Globulin (1.7-4.1) g/dL Albumin/Globulin Ratio (1.0-2.8) Lipase (23-300) U/L Urine Color Urine Appearance Urine pH (4.5-8.0) Ur Specific [place] (1.000-1.035) Urine Protein (Negative) Urine Glucose (UA) (Negative) g/dL Urine Ketones (NEGATIVE) Urine Occult Blood (Negative) Urine Nitrate (Negative) Urine Bilirubin (NEGATIVE) Urine Urobilinogen (0.2) E.U./dL Ur Leukocyte Esterase (NEGATIVE) Urine RBC Cancelled (0-5/HPF) Urine WBC Cancelled (0-5/HPF) Ur Squamous Epith Cells Cancelled (0-5/HPF) Ur Transition Epith Cell Cancelled Ur Renal Epithelial Cell Cancelled Calcium Oxalate Crystal Cancelled Uric Acid Crystals Cancelled Triple Phos Crystals Cancelled Other Crystals Cancelled Amorphous Sediment Cancelled Urine Bacteria Cancelled (None) Hyaline Casts Cancelled Granular Casts Cancelled RBC Casts Cancelled WBC Casts Cancelled Other Casts Cancelled Urine Mucus Cancelled Urine Trichomonas Cancelled Urine Yeast Cancelled Urine Sperm Cancelled Ur Culture Indicated? Cancelled Micro UA Comment Cancelled Imaging Data CT scan - abdomen/pelvis: Radiologist's Impression: PROCEDURE:? CT ABDOMEN PELVIS W CON ? INDICATIONS:? Abdominal pain, history of abdominal surgeries ? TECHNIQUE:? After the administration of intravenous contrast, axial sections acquired from the lung bases to the pubic symphysis.? Coronal and sagittal reformats were performed.? For radiation dose reduction, the following was used:? automated exposure control, adjustment of mA and/or kV according to patient size.? ? COMPARISON:? [facility], CT, ABDOMEN/PELVIS WITH CONTRAST, 03/16/2016, 7:02. ? FINDINGS: ? Lower thorax: The lung bases are clear.? Heart size normal.? No hiatal hernia. ? Liver: The liver is diffusely decreased in attenuation without focal mass lesion. ? Biliary system:? No calcified cholelithiasis or pericholecystic inflammation. No intra or extrahepatic bile duct dilatation. ? Pancreas:? Unremarkable without mass or inflammation evident. ? Spleen:? Normal in size and density. ? Adrenals:? Normal morphology and density. ? Reproductive system:? Unremarkable as visualized. ? Urinary system:? Incidental horseshoe kidney noted no evidence of renal calculi or obstructive uropathy.? No mass lesion. ? Gastrointestinal system:? The bowel is unremarkable without evidence of bowel obstruction or inflammation. The stomach appears unremarkable.? Multiple diverticula arise from the sigmoid and left colon without evidence of diverticulitis. ? ? Appendix:? Normal appendix identified.? No evidence of appendicitis. ? Peritoneal spaces:? No mesenteric or retroperitoneal adenopathy.? No free air.? No free fluid.? ? Vasculature:? The IVC, aorta and iliac vasculature are unremarkable. ? Abdominal wall:? Abdominal wall intact without evidence of ventral or inguinal hernias. ? Musculoskeletal:? Normal bone mineralization.? No acute fractures.? ? IMPRESSION: ? 1. No acute CT findings in the abdomen and pelvis. 2. 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 ? ? ? Approved by: Nickolas Nieto M.D. on 04/21/2021 at 16:57? MDM Narrative Medical decision making narrative: To consider umbilical hernia versus appendicitis versus diverticulitis versus diverticulosis versus ischemic colitis. Overall physical examination, history, and imaging are reassuring. Discussed with the patient his lab results and imaging results. At this time patient states he feels comfortable being discharged home. Strict return precautions were discussed with the patient prior to discharge. <Sarah Beth Miller MD - Last Filed: 04/27/21 08:15> Lab Data Labs: Lab Results 04/21/21 04/21/21 04/21/21 Range/Units 15:35 15:35 18:13 WBC 8.9 (4.5-11.0) X10^3/uL RBC 5.48 (4.5-5.9) X10^6/uL Hgb 15.8 (13.5-17.5) g/dL Hct 46.1 (41-53) % MCV 84.2 (80-100) fL MCH 28.9 (26-34) PG MCHC 34.3 (30-36) % RDW 13.5 (11.6-14.8) % Plt Count 393 (150-400) X10^3/uL Neut % (Auto) 67.3 (50-75) % Lymph % (Auto) 23.9 L (25-40) % [place] % (Auto) 6.0 (3-14) % Eos % (Auto) 1.7 L (2-4) % Baso % (Auto) 1.1 (0-2) % Neut # (Auto) 6000 (9921-8260) /uL Lymph # (Auto) 2100 (4500-9741) /uL [place] # (Auto) 500 (0-900) /uL Eos # (Auto) 200 (0-450) /uL Baso # (Auto) 100 (0-100) /uL Sodium 132 L (137-145) mmol/L Potassium 5.4 H (3.4-5.1) mmol/L Chloride 98 (98-107) mmol/L Carbon Dioxide 27 (22-32) mmol/L BUN 15 (9-20) mg/dL Creatinine 0.80 (0.66-1.25) mg/dL Estimated GFR > 60.0 (>60) mL/min BUN/Creatinine Ratio 18.8 (6-22) Glucose 329 H (70-100) mg/dL Calcium 9.4 (8.4-10.2) mg/dL Total Bilirubin 1.8 H (0.2-1.3) mg/dL AST 39 (17-59) IU/L ALT 28 (<50) IU/L Alkaline Phosphatase 88 (38-126) U/L Total Protein 7.7 (6.3-8.2) g/dL Albumin 4.6 (3.5-5.0) g/dL Globulin 3.1 (1.7-4.1) g/dL Albumin/Globulin Ratio 1.5 (1.0-2.8) Lipase 276 (23-300) U/L Urine Color Yellow Urine Appearance Clear Urine pH 6.5 (4.5-8.0) Ur Specific [place] <=1.005 (1.000-1.035) Urine Protein 1+ H (Negative) Urine Glucose (UA) 2+ H (Negative) g/dL Urine Ketones Trace H (NEGATIVE) Urine Occult Blood Negative (Negative) Urine Nitrate Negative (Negative) Urine Bilirubin Negative (NEGATIVE) Urine Urobilinogen 0.2 (0.2) E.U./dL Ur Leukocyte Esterase Negative (NEGATIVE) Urine RBC None seen (0-5/HPF) Urine WBC 0-1/hpf (0-5/HPF) Ur Squamous Epith Cells 0-1 /hpf (0-5/HPF) Ur Transition Epith Cell Ur Renal Epithelial Cell Calcium Oxalate Crystal Uric Acid Crystals Triple Phos Crystals Other Crystals Amorphous Sediment Urine Bacteria None seen (None) Hyaline Casts Granular Casts RBC Casts WBC Casts Other Casts Urine Mucus Urine Trichomonas Urine Yeast Urine Sperm 1 to 3 per hpf Ur Culture Indicated? Cult not indicated Micro UA Comment 04/21/21 Range/Units 18:13 WBC (4.5-11.0) X10^3/uL RBC (4.5-5.9) X10^6/uL Hgb (13.5-17.5) g/dL Hct (41-53) % MCV (80-100) fL MCH (26-34) PG MCHC (30-36) % RDW (11.6-14.8) % Plt Count (150-400) X10^3/uL Neut % (Auto) (50-75) % Lymph % (Auto) (25-40) % [place] % (Auto) (3-14) % Eos % (Auto) (2-4) % Baso % (Auto) (0-2) % Neut # (Auto) (8936-4187) /uL Lymph # (Auto) (9543-7371) /uL [place] # (Auto) (0-900) /uL Eos # (Auto) (0-450) /uL Baso # (Auto) (0-100) /uL Sodium (137-145) mmol/L Potassium (3.4-5.1) mmol/L Chloride (98-107) mmol/L Carbon Dioxide (22-32) mmol/L BUN (9-20) mg/dL Creatinine (0.66-1.25) mg/dL Estimated GFR (>60) mL/min BUN/Creatinine Ratio (6-22) Glucose (70-100) mg/dL Calcium (8.4-10.2) mg/dL Total Bilirubin (0.2-1.3) mg/dL AST (17-59) IU/L ALT (<50) IU/L Alkaline Phosphatase (38-126) U/L Total Protein (6.3-8.2) g/dL Albumin (3.5-5.0) g/dL Globulin (1.7-4.1) g/dL Albumin/Globulin Ratio (1.0-2.8) Lipase (23-300) U/L Urine Color Urine Appearance Urine pH (4.5-8.0) Ur Specific [place] (1.000-1.035) Urine Protein (Negative) Urine Glucose (UA) (Negative) g/dL Urine Ketones (NEGATIVE) Urine Occult Blood (Negative) Urine Nitrate (Negative) Urine Bilirubin (NEGATIVE) Urine Urobilinogen (0.2) E.U./dL Ur Leukocyte Esterase (NEGATIVE) Urine RBC Cancelled (0-5/HPF) Urine WBC Cancelled (0-5/HPF) Ur Squamous Epith Cells Cancelled (0-5/HPF) Ur Transition Epith Cell Cancelled Ur Renal Epithelial Cell Cancelled Calcium Oxalate Crystal Cancelled Uric Acid Crystals Cancelled Triple Phos Crystals Cancelled Other Crystals Cancelled Amorphous Sediment Cancelled Urine Bacteria Cancelled (None) Hyaline Casts Cancelled Granular Casts Cancelled RBC Casts Cancelled WBC Casts Cancelled Other Casts Cancelled Urine Mucus Cancelled Urine Trichomonas Cancelled Urine Yeast Cancelled Urine Sperm Cancelled Ur Culture Indicated? Cancelled Micro UA Comment Cancelled Discharge Plan Departure Patient Disposition: Home Clinical Impression: Abdominal pain Activity Restrictions/Additional Instructions: *You have been diagnosed with abdominal pain *What to do: *Please continue to take your regular medications as directed. [ ] New medication prescriptions sent to your pharmacy: [ ] [ ] New medication written as a paper prescription [X] No new medications given *Please follow up with your primary care provider in 2-3 days, call for an appointment. Let them know you were seen in the Emergency Department and that we ask that you be seen in follow up. We will electronically transmit a record of today's note if your PCP is in our system *If you do not have a primary care provider please contact the [facility] Resource line at [phone]. They will ask some questions about your medical history and help get you set up with a doctor in the community. *Return to Emergency Department if you should have any new, worsening or concerning symptoms, such as fever greater than 101 F, shaking chills, worsening pain, persistent vomiting, blood in your stool, or other bothersome symptoms. Prescriptions: No Action losartan 50 mg tablet 100 mg PO DAILY Qty: 90 0RF cyclobenzaprine 10 mg tablet 10 mg PO BID PRN (Reason: muscle spasm) Qty: 60 5RF gabapentin 800 mg tablet 800 mg PO TID Qty: 135 5RF metformin 1,000 mg tablet 1,000 mg PO BIDCC Qty: 180 1RF hydrocodone-acetaminophen 7.5-325 mg tablet 1 tab PO Q6H PRN (Reason: pain) Qty: 100 0RF Rx Instructions: EXEMPT Must last 30 days (DME) FreeStyle Amie 2 Sensor Kit See Rx Instructions ea .ROUTE .MEDSUPPLY Qty: 1 0RF Rx Instructions: As directed duloxetine 30 mg capsule,delayed release(DR/EC) 30 mg PO DAILY 0RF insulin detemir U-100 100 unit/mL (3 mL) insulin pen 30 unit SUBCUT BEDTIME 0RF insulin aspart U-100 [Novolog Flexpen U-100 Insulin] 100 unit/mL (3 mL) insulin pen 10 unit SUBCUT BID 0RF atorvastatin 40 mg tablet PO 0RF Referrals: Oswaldo Pickering MD [Primary Care Provider] - <Sarah Beth Miller MD - Last Filed: 04/27/21 08:15> Cosign ED Attending Cosyuanature Attestation: I was immediately available in the department for consultation throughout this patient's visit. I agree with documentation as above. Sarah Beth Miller MD
[2021-04-21 17:08] VITALS: BP 139/97; PULSE 94; O2SAT 95
[2021-04-21 17:25] VITALS: BP 128/90; PULSE 95; O2SAT 97
[2021-04-21 17:30] VITALS: BP 117/81; PULSE 100; O2SAT 95
[2021-04-21 18:00] VITALS: BP 127/80; PULSE 105; O2SAT 92
[2021-04-21 18:21] VITALS: BP 118/92; PULSE 99; O2SAT 96
[2021-04-21 18:28] LABS: Appearance Urine UA CLEAR; Bilirubin Urine UA NEGATIVE (NEGATIVE); Color Urine UA YELLOW; Glucose Urine UA 2+ g/dL (Negative); Ketones Urine UA TRACE (NEGATIVE); Leukocyte Esterase Urine UA NEGATIVE (NEGATIVE); Nitrite Urine UA NEGATIVE (Negative); Occult Blood Urine UA NEGATIVE (Negative); Protein Urine UA 1+ (Negative); Specific Gravity Urine UA <=1.005 (1.000-1.035); Urobilinogen Urine UA 0.2 E.U./dL (0.2); pH Urine UA 6.5 (4.5-8.0)
[2021-04-21 18:32] LABS: Bacteria Urine None Seen; RBC Urine None Seen (0-5/HPF); Squamous Epithelial Cell Urine 0-1 /HPF (0-5/HPF); WBC Urine 0-1/HPF (0-5/HPF)
[2021-04-21 18:33] LABS: Culture Indicated Urine Cult Not Indicated; Sperm Urine 1 TO 3 PER HPF
== END 2021-04-21 18:55 | disposition home or self-care (01) ==
PROVIDERS: Emergency Medicine; Emergency Provider Physician Assistant; Family Provider Student in an Organized Health Care Education/Training Program; PCP Student in an Organized Health Care Education/Training Program
DX: R10.12 Left upper quadrant pain (principal); R10.32 Left lower quadrant pain; R10.33 Periumbilical pain; Z88.5 Allergy status to narcotic agent
CPT/HCPCS: 74177; 80053; 81001; 83690; 85025; 99283; 99284; Q9967

== ENCOUNTER → 2021-05-13 09:10 | Outpatient (CLI) | payer OTHER, MEDICAID, SELFPAY ==
--- NOTE | 2021-05-13 09:11 | DI.MRI.S_ITS ---
PROCEDURE: MR ANGIO ABDOMEN W CON INDICATIONS: Abdominal pain, suspect ischemic colitis TECHNIQUE: Precontrast axial, coronal, and sagittal TruFISP acquired through the abdomen and pelvis. Dynamic coronal MRA using Care Bolus timing of the abdomen and pelvis during the administration of contrast, with 3-dimensional maximum intensity projection (MIP) reformats performed. COMPARISON: [facility], CT, CT ABDOMEN PELVIS W CON, 04/21/2021, 17:18. FINDINGS: Image quality: Excellent. Mesenteric arteries: The origin and proximal vascularity of the celiac, superior and inferior mesenteric arteries are all widely patent. Aorta: Aorta is normal in caliber and enhancement. Renal arteries: Renal arteries all appear patent. Extravascular soft tissues: Visualized solid organs are normal in size on limited pre-contrast images. Bowel loops are normal in caliber. No free fluid. No retroperitoneal or mesenteric adenopathy by size criteria. No ventral hernias. Incidental note is made of fusion of the inferior renal poles across the midline consistent with horseshoe kidney Bones: Marrow is normal in overall signal. IMPRESSION: 1. Unremarkable MR angiogram of the abdomen with contrast. Aorta and proximal vessels are widely patent. 2. Incidental horseshoe kidney without hydronephrosis Dictated by: Nickolas Nieto M.D. on 05/13/2021 at 10:46 Approved by: Nickolas Nieto M.D. on 05/13/2021 at 10:52
== END ==
PROVIDERS: Family Provider Student in an Organized Health Care Education/Training Program; PCP Student in an Organized Health Care Education/Training Program; Referring Provider Student in an Organized Health Care Education/Training Program; Visit Provider Student in an Organized Health Care Education/Training Program
DX: Q63.1 Lobulated, fused and horseshoe kidney (principal); R10.9 Unspecified abdominal pain
CPT/HCPCS: C8900; A9579

== ENCOUNTER → 2021-08-10 13:00 | Outpatient (CLI) | payer OTHER, MEDICAID, SELFPAY ==
--- NOTE | 2021-08-10 13:02 | DI.RAD.S_ITS ---
PROCEDURE: XR FOOT LT MIN 3V INDICATIONS: Left heel pain, atraumatic TECHNIQUE: 3 views of the foot were acquired. COMPARISON: [facility], , FOOT 3V LEFT, 10/10/2012, 22:23. FINDINGS: Bones: No fractures or dislocations. No suspicious bony lesions. Well-defined plantar and dorsal calcaneal enthesophytes are seen slightly more prominent in size compared to prior study. Soft tissues: No tibiotalar joint effusion. Achilles tendon appears normal. IMPRESSION: Well-defined plantar and dorsal calcaneal enthesophytes. No gross plantar soft tissue abnormality. No fracture or dislocation. Dictated by: Segundo Cam M.D. on 08/10/2021 at 13:42 Approved by: Segundo Cam M.D. on 08/10/2021 at 13:42
== END ==
PROVIDERS: Family Provider Student in an Organized Health Care Education/Training Program; PCP Student in an Organized Health Care Education/Training Program; Referring Provider Student in an Organized Health Care Education/Training Program; Visit Provider Student in an Organized Health Care Education/Training Program
DX: M77.32 Calcaneal spur, left foot (principal); M79.672 Pain in left foot
CPT/HCPCS: 73630

== ENCOUNTER → 2021-11-03 14:57 | Outpatient (CLI) | payer OTHER, MEDICAID, SELFPAY ==
[2021-11-03 16:29] LABS: Albumin 4.2 g/dL (3.5-5.0); Blood Urea Nitrogen 18 mg/dL (9-20); Calcium 8.4 mg/dL (8.4-10.2); Carbon Dioxide 29 mmol/L (22-32); Chloride 103 mmol/L (98-107); Cholesterol 179 mg/dL (140-199); Estimated Glomerular Filt Rate > 60 mL/min (>60); Glucose 197 mg/dL (70-100); HDL Cholesterol 41 mg/dL (40-60); HEMOLYSIS < 15 (0-50); LDL Cholesterol Calculated 76 mg/dL (<100); Phosphorous 3.1 mg/dL (2.5-4.5); Potassium 4.2 mmol/L (3.4-5.1); Sodium 139 mmol/L (137-145); Triglycerides 308 mg/dL (35-150)
[2021-11-03 17:23] LABS: Creatinine Urine Random 119.5 mg/dL
[2021-11-03 17:26] LABS: Microalbumi Creatinin Ratio Ur 153.9 ug/mg CR (<30); Microalbumin Urine Random 18.4 mg/dL (0-1.6)
== END ==
PROVIDERS: Family Provider Student in an Organized Health Care Education/Training Program; PCP Student in an Organized Health Care Education/Training Program; Referring Provider Student in an Organized Health Care Education/Training Program; Visit Provider Student in an Organized Health Care Education/Training Program
DX: E11.29 Type 2 diabetes mellitus with other diabetic kidney complication (principal); R80.9 Proteinuria, unspecified
CPT/HCPCS: 36415; 80061; 80069; 82043; 82570

== ENCOUNTER → 2021-11-08 14:26 | Outpatient (CLI) | payer OTHER, MEDICAID, SELFPAY ==
--- NOTE | 2021-11-08 14:27 | DI.RAD.S_ITS ---
PROCEDURE: XR SHOULDER RT MIN 2V INDICATIONS: Right shoulder pain after injury TECHNIQUE: 3 views of the shoulder were acquired. COMPARISON: None. FINDINGS: Bones: Small bone fragment noted at the inferior margin of the glenoid concerning for osseous Bank[place]. No suspicious bony lesions. Visualized ribs appear intact. Soft tissues: No suspicious soft tissue calcifications. IMPRESSION: Osseous Bankart fracture of indeterminate age. Dictated by: Sindhu Watt MD, PhD on 11/08/2021 at 16:47 Approved by: Sindhu Watt MD, PhD on 11/08/2021 at 16:49
== END ==
PROVIDERS: Family Provider Student in an Organized Health Care Education/Training Program; PCP Student in an Organized Health Care Education/Training Program; Referring Provider Student in an Organized Health Care Education/Training Program; Visit Provider Student in an Organized Health Care Education/Training Program
DX: G89.29 Other chronic pain (principal); M25.511 Pain in right shoulder; S49.90XA Unspecified injury of shoulder and upper arm, unspecified arm, initial encounter; S42.91XA Fracture of right shoulder girdle, part unspecified, initial encounter for closed fracture
CPT/HCPCS: 73030

== ENCOUNTER 2022-03-11 19:42 | Observation (INO) | payer OTHER, MEDICAID, SELFPAY ==
[2022-03-11] VITALS (17 sets, daily range): BP systolic 134–178; BP diastolic 79–92; PULSE 104–123; RESP 13–41; TEMP 38.1; O2SAT 94–99; BMI 36.9
--- NOTE | 2022-03-11 19:51 | ED.ABDPAIN ---
HPI - Abdominal Pain General Chief Complaint: Fever Stated Complaint: Swollen ABD, Pain, Red Time Seen by Provider: 03/11/22 19:45 History of Present Illness HPI narrative: 51-year-old male nonsmoker with history of hyperlipidemia, diabetes, obesity, neuropathic pain, insomnia presents with significant other and a chief complaint of severe generalized pain including chest, abdomen and is low to mid back. Over the course of the afternoon he became febrile in short of breath and developed pain and redness of his lower back. He denies any headache, blurred vision or dizziness. He denies runny nose, sore throat or cough. He is had chest pain and shortness of breath without any obvious provocation, palliation or radiation. He states that he has chronic abdominal pain but what he is experiencing a slightly different than normal he states it is more generalized. He denies obvious provocation or palliation of his abdominal pain other than motion and palpation. He is had no change in bowel habits such as diarrhea or constipation. He denies obvious dysuria, frequency or urgency. Related Data Home Medications Medication Instructions Recorded Confirmed atorvastatin 40 mg tablet mg PO 08/25/19 02/08/22 flash glucose sensor (FreeStyle #1 ea 11/29/20 02/08/22 Amie 2 Sensor kit) duloxetine 30 mg capsule,delayed 30 mg PO DAILY 03/03/21 02/08/22 release insulin aspart U-100 100 unit/mL 10 unit SUBCUT BID 03/03/21 02/08/22 (3 mL) subcutaneous pen (Novolog Flexpen U-100 Insulin aspart) insulin detemir U-100 100 unit/mL 30 unit SUBCUT BEDTIME 03/03/21 02/08/22 (3 mL) subcutaneous pen dulaglutide 0.75 mg/0.5 mL 0.75 mg SUBCUT QWEEK 02/08/22 02/08/22 subcutaneous pen injector Previous Rx's Medication Instructions Recorded losartan 50 mg tablet 100 mg PO DAILY #90 tabs 02/03/20 metformin 1,000 mg tablet 1,000 mg PO BIDCC #180 tabs 08/16/21 cyclobenzaprine 10 mg tablet 10 mg PO BID PRN muscle spasm #60 02/08/22 tabs gabapentin 800 mg tablet 1,200 mg PO TID #135 tabs 02/08/22 hydrocodone 7.5 mg-acetaminophen 1 tab PO Q6H PRN pain #100 tabs 02/08/22 325 mg tablet Allergies Allergy/AdvReac Type Severity Reaction Status Date / Time lisinopril AdvReac Severe cough Verified 02/08/22 12:58 oxycodone AdvReac Severe Rage Verified 02/08/22 12:58 Review of Systems Review of Systems Narrative: GENERAL: See HPI HEENT: Denies sinus pain, ear pain, sore throat, difficulty swallowing, dizziness. RESPIRATORY: See HPI CARDIOVASCULAR: Denies chest pain, palpitations, orthopnea, edema, GASTROINTESTINAL: See HPI : Denies dysuria, frequency, incontinence, hematuria, urinary retention. MUSCULOSKELETAL: denies weakness, joint pain, or bony pain SKIN: See HPI NEUROLOGIC: Denies weakness, headache, numbness, change in speech, confusion, seizures, incoordination. PSYCHIATRIC: No concerning psychosocial issues. 12 point review of systems is negative except for those stated above Patient History Medical History (Reviewed 03/12/22 @ 01:14 PDT by Victor Manuel Guzman DO) Carpal tunnel syndrome (Unknown) Chronic pain syndrome (Unknown) Chronic right shoulder pain Diabetes (Unknown) Hx of tendinitis (~2016) Neuropathic pain Primary insomnia (03/13/16) Shoulder pain (2010) Uncomplicated opioid dependence (03/06/17) Uncomplicated opioid dependence Surgical History (Reviewed 03/12/22 @ 01:14 PDT by Victor Manuel Guzman DO) History of hernia repair (06/07/17) Hx of hernia repair (2005) Family History (Reviewed 03/12/22 @ 01:14 PDT by Victor Manuel Guzman DO) Brother Age: 54 Diabetes mellitus Father Essential hypertension Other Primary insomnia Social History (Reviewed 03/12/22 @ 01:14 PDT by Victor Manuel Guzman DO) Smoking Status: Never smoker alcohol intake: current substance use type: does not use Smoking Status: Never smoker alcohol intake frequency: 0-2 drinks per day Substance Use Type: does not use Exam Narrative Exam Narrative: GENERAL: [51] year old patient appears stated age. Well-developed patient, in obvious distress, increased work of breathing and tachycardic, writhing in pain, complaining largely of his back HEAD: Atraumatic. Normocephalic. EYES: Pupils equal round and reactive. Extraocular motions intact. No scleral icterus. No injection or drainage. ENT: Nose without bleeding, purulent drainage. Throat without erythema, tonsillar hypertrophy or exudate. Airway patent. NECK: Trachea midline. Non tender CARDIOVASCULAR: Tachycardic but regular rhythm without murmurs, gallops, or rubs. RESPIRATORY: Clear to auscultation. Breath sounds equal bilaterally. No wheezes, rales, or rhonchi. Increased work of breathing GASTROINTESTINAL: Abdomen soft, slightly distended, generalized tenderness, bowel sounds present in all 4 quadrants EXTREMITIES: No edema or joint tenderness. BACK: Nontender without deformity or crepitance. No flank tenderness. NEURO: AOx3. SKIN: Warm, erythematous skin on lower back to mid back, blanching, no breaks in the skin, petechiae. Initial Vital Signs Initial Vital Signs: Vital Signs Pulse Rate 123 H 03/11/22 19:49 Pulse Oximetry 97 03/11/22 19:49 Course Orders Ordered: ED Orders 03/11/22 19:54 EKG-12 Lead Stat 03/11/22 20:00 CRP [C-Reactive Protein Quant] Stat Comprehensive Metabolic Panel Stat Lactate (Lactic Acid) Stat Lipase Stat 03/11/22 20:19 CT angio chest abdomen pelvis Stat 03/11/22 20:40 Complete Blood Count AUTO DIFF Stat D Dimer Stat ESR [Erythrocyte Sedimentation Rate] Stat 03/11/22 22:11 Blood Culture Stat 03/11/22 23:35 Urine Culture Stat Urine Microscopic Stat 03/12/22 01:47 COVID19 -Nasal RAPID/Pre-Proc Stat Discontinued Medications Hydromorphone HCl (Hydromorphone 0.5 Mg Inj) 0.5 mg IV NOW ONE Stop: 03/11/22 21:42 Last Admin: 03/11/22 21:54 Dose: 0.5 mg Documented By: SB Sodium Chloride (Normal Saline 0.9%) 1,000 mls @ 150 mls/hr IV CONT JORGE Sodium Chloride (Normal Saline 0.9%) 2,259 mls @ 753 mls/hr 30 ml/kg infuse over 3 hr (2259 ml) IV NOW ONE Stop: 03/11/22 23:18 Last Infusion: 03/11/22 23:30 Dose: 0 mls/hr Documented By: CHANELL(2) Admin: 03/11/22 20:15 Dose: 753 mls/hr Documented By: SB(2) Ceftriaxone Sodium 2,000 mg/ (Sodium Chloride) 100 mls @ 200 mls/hr IV NOW ONE Stop: 03/11/22 20:20 Last Infusion: 03/11/22 22:00 Dose: 0 mls/hr Documented By: Admin: 03/11/22 20:57 Dose: 200 mls/hr Documented By: CHANELL(2) Vancomycin HCl/Dextrose (Vancomycin) 2,000 mg in 400 mls @ 200 mls/hr IV NOW ONE Stop: 03/11/22 23:40 Last Infusion: 03/12/22 00:15 Dose: 0 mls/hr Documented By: CHANELL(2) Admin: 03/11/22 22:14 Dose: 200 mls/hr Documented By: CHANELL Ketorolac Tromethamine (Ketorolac 30 Mg/Ml Vial) 15 mg IV NOW ONE Stop: 03/11/22 22:24 Last Admin: 03/11/22 22:38 Dose: 15 mg Documented By: CHANELL Ondansetron HCl (Ondansetron 4 Mg/2 Ml Inj) 4 mg IV NOW ONE Stop: 03/11/22 20:33 Last Admin: 03/11/22 20:37 Dose: 4 mg Documented By: CHANELL(2) Vital Signs Vital signs: Vital Signs - 8 hr 03/11/22 19:52 03/11/22 19:49 03/11/22 19:50 Temperature 100.6 F H Pulse Rate 120 H 123 H Respiratory Rate 26 H Blood Pressure 178/84 H 178/84 H Pulse Oximetry 99 97 Oxygen Delivery Method Room Air 03/11/22 19:50 03/11/22 20:00 03/11/22 20:15 Temperature Pulse Rate 117 H 115 H 108 H Respiratory Rate 26 H 13 21 Blood Pressure Pulse Oximetry 97 99 99 Oxygen Delivery Method 03/11/22 20:30 03/11/22 20:57 03/11/22 21:00 Temperature Pulse Rate 110 H 108 H 110 H Respiratory Rate 41 H 20 20 Blood Pressure Pulse Oximetry 98 94 97 Oxygen Delivery Method 03/11/22 21:04 03/11/22 21:04 03/11/22 21:15 Temperature Pulse Rate 112 H 114 H Respiratory Rate 22 18 Blood Pressure 140/79 Pulse Oximetry 96 95 Oxygen Delivery Method 03/11/22 21:30 03/11/22 21:30 03/11/22 21:45 Temperature Pulse Rate 113 H 108 H Respiratory Rate 27 H 19 Blood Pressure 140/82 Pulse Oximetry 96 96 Oxygen Delivery Method 03/11/22 22:00 03/11/22 22:00 03/11/22 22:15 Temperature Pulse Rate 111 H 110 H Respiratory Rate 31 H 19 Blood Pressure 134/92 H Pulse Oximetry 97 96 Oxygen Delivery Method 03/11/22 22:30 03/11/22 23:00 03/11/22 23:30 Temperature Pulse Rate 105 H 109 H 104 H Respiratory Rate 20 30 H 34 H Blood Pressure Pulse Oximetry 97 98 97 Oxygen Delivery Method 03/12/22 00:46 03/12/22 00:00 03/12/22 00:30 Temperature 99.2 F Pulse Rate 102 H 104 H Respiratory Rate 19 22 Blood Pressure Pulse Oximetry 96 95 Oxygen Delivery Method 03/12/22 00:36 03/12/22 00:36 Temperature 99.2 F Pulse Rate 101 H Respiratory Rate 20 Blood Pressure 143/71 H Pulse Oximetry 95 Oxygen Delivery Method MDM - Abdominal Pain Lab Data Result diagrams: 03/11/22 20:40 03/11/22 20:00 Labs: Lab Results 03/11/22 03/11/22 03/11/22 Range/Units 20:00 20:00 20:40 WBC 11.4 H (4.5-11.0) X10^3/uL RBC 4.70 (4.5-5.9) X10^6/uL Hgb 13.4 L (13.5-17.5) g/dL Hct 40.0 L (41-53) % MCV 85.1 (80-100) fL MCH 28.4 (26-34) PG MCHC 33.4 (30-36) % RDW 13.6 (11.6-14.8) % Plt Count 340 (150-400) X10^3/uL Neut % (Auto) 85.7 H (50-75) % Lymph % (Auto) 5.9 L (25-40) % [place] % (Auto) 7.1 (3-14) % Eos % (Auto) 0.7 L (2-4) % Baso % (Auto) 0.6 (0-2) % Neut # (Auto) 9800 H (3006-3788) /uL Lymph # (Auto) 700 L (9917-7006) /uL [place] # (Auto) 800 (0-900) /uL Eos # (Auto) 100 (0-450) /uL Baso # (Auto) 100 (0-100) /uL ESR 58 H (0-15) MM/HR D-Dimer (<500) ng/ml Sodium 131 L (137-145) mmol/L Potassium 3.8 (3.4-5.1) mmol/L Chloride 93 L (98-107) mmol/L Carbon Dioxide 24 (22-32) mmol/L BUN 13 (9-20) mg/dL Creatinine 0.79 (0.66-1.25) mg/dL Estimated GFR > 60 (>60) mL/min BUN/Creatinine Ratio 16.5 (6-22) Glucose 280 H (70-100) mg/dL Lactate 4.4 H* (0.7-2.1) mmol/L Calcium 8.4 (8.4-10.2) mg/dL Total Bilirubin 1.8 H (0.2-1.3) mg/dL AST 23 (17-59) IU/L ALT 24 (<50) IU/L Alkaline Phosphatase 148 H (38-126) U/L C-Reactive Protein 8.6 H (<1.0) mg/dL Total Protein 7.3 (6.3-8.2) g/dL Albumin 3.9 (3.5-5.0) g/dL Globulin 3.4 (1.7-4.1) g/dL Albumin/Globulin Ratio 1.1 (1.0-2.8) Lipase 102 (23-300) U/L Urine RBC (0-5/HPF) Urine WBC (0-5/HPF) Urine Bacteria (None) Micro UA Comment 03/11/22 03/11/22 03/11/22 Range/Units 20:40 22:33 23:35 WBC (4.5-11.0) X10^3/uL RBC (4.5-5.9) X10^6/uL Hgb (13.5-17.5) g/dL Hct (41-53) % MCV (80-100) fL MCH (26-34) PG MCHC (30-36) % RDW (11.6-14.8) % Plt Count (150-400) X10^3/uL Neut % (Auto) (50-75) % Lymph % (Auto) (25-40) % [place] % (Auto) (3-14) % Eos % (Auto) (2-4) % Baso % (Auto) (0-2) % Neut # (Auto) (8325-1957) /uL Lymph # (Auto) (7606-5816) /uL [place] # (Auto) (0-900) /uL Eos # (Auto) (0-450) /uL Baso # (Auto) (0-100) /uL ESR (0-15) MM/HR D-Dimer 772 H (<500) ng/ml Sodium (137-145) mmol/L Potassium (3.4-5.1) mmol/L Chloride (98-107) mmol/L Carbon Dioxide (22-32) mmol/L BUN (9-20) mg/dL Creatinine (0.66-1.25) mg/dL Estimated GFR (>60) mL/min BUN/Creatinine Ratio (6-22) Glucose (70-100) mg/dL Lactate 2.2 H (0.7-2.1) mmol/L Calcium (8.4-10.2) mg/dL Total Bilirubin (0.2-1.3) mg/dL AST (17-59) IU/L ALT (<50) IU/L Alkaline Phosphatase (38-126) U/L C-Reactive Protein (<1.0) mg/dL Total Protein (6.3-8.2) g/dL Albumin (3.5-5.0) g/dL Globulin (1.7-4.1) g/dL Albumin/Globulin Ratio (1.0-2.8) Lipase (23-300) U/L Urine RBC None seen (0-5/HPF) Urine WBC None seen (0-5/HPF) Urine Bacteria None seen (None) Micro UA Comment * Point of care testing: Urine Dip Bedside Urine Glucose 1000 mg/dl Bedside Urine Bilirubin - Negative Bedside Urine Ketone +/- 5 Urine Specific [place] 1.005 Bedside Urine Occult Blood - Negative Bedside Urine pH 6.0 Bedside Urine Protein ++ 100 Bedside Urine Urobilinogen +/- 1mg Bedside Urine Nitrite - Negative Bedside Urine Leukocytes - Negative Esterase Imaging Data CT scan - chest: Radiologist's Impression: Close Chest/Abdomen/Pelvis CTA (Signed) Rufino Mondragon - 03/11/22 Shoulder X-Ray (Signed) Sindhu Watt - 11/08/21 Foot X-Ray (Signed) Segundo Cam - 08/10/21 Abdomen Magnetic Resonance Angio (Signed) Nickolas Nieto - 05/13/21 Abdomen/Pelvis CT (Signed) Nieto,Nickolas - 04/21/[address] (Signed) FishmanCameron - 01/31/20 Shoulder MRI (Signed) Segundo Cam - 02/19/19 Chest/Abdomen/Pelvis CTA (Signed) Lacho Hoover - 02/12/19 EKG Rpt. 02/12/19 Shoulder X-Ray (Signed) Rufino Mondragon - 01/21/19 Abdomen/Pelvis CT (Signed) Gary Landry - 10/16/18 Thoracic Spine MRI (Signed) Sindhu Watt - 09/16/18 Cervical Spine MRI (Signed) Sindhu Watt - 09/16/18 Cervical Spine X-Ray (Signed) Joe Lewis - 03/17/18 Pelvis X-Ray (Signed) Suresh Peterson - 01/02/18 Abdomen Ultrasound (Signed) Omari Grififn - 11/16/17 Thoracic Spine X-Ray (Signed) Rufino Mondragon - 11/08/17 Ribs X-Ray (Signed) Rufino Mondragon - 11/08/17 [place] [address] CT Scan Report Signed Patient: José Starr MR#: [id number] : 1970 Acct:[id number] Age/Sex: 51 / M Date of Service: 03/11/22 Loc: ED Accession Number: [id number] ?? Procedure: CT angio chest abdomen pelvis Ordering Provider: Victor Manuel Guzman D.O. PROCEDURE:? CT ANGIO CHEST ABDOMEN PELVIS ? INDICATIONS:? chest pain, radiation to back, SOB, tachycardic ? TECHNIQUE:? Precontrast 5 mm thick sections acquired from the lung apices to the iliac crests.? After the administration of intravenous contrast, 2.5 mm thick sections again acquired from the lung apices to the iliac crests.? Maximum intensity projection (MIP) oblique sagittal and coronal reformats were then acquired.? For radiation dose reduction, the following was used:? automated exposure control.? ? COMPARISON:? [facility], CT, CT ANGIO CHEST ABDOMEN PELVIS, 02/12/2019, 18:50. ? FINDINGS:? Image quality:? Excellent.? ? AORTA:? Intramural hematoma:? Absent Maximum hematoma thickness:? Not applicable.? Focal contrast enhancement:? Intramural blood pool (< 2 mm neck or imperceptible communication with aortic lumen):? Absent .? Ulcer-like projection (broad communication with aortic lumen > 3 mm):? Absent . ? Dissection:? Absent [place] classification:? Not applicable Maximum aortic diameter:? Normal aortic caliber Periaortic hematoma:? Absent .? ? CHEST:? Lungs and pleura:? No acute airspace opacities.? No pleural effusions or pneumothorax.? Central and peripheral airways are patent and normal in caliber.? ? Mediastinum:? Heart size is normal.? No pericardial effusion.? No mediastinal or hilar adenopathy by size criteria.? Central pulmonary arteries are normal in size.? Esophagus is normal in caliber.? No hiatal hernias.? ? Bones and chest wall:? No axillary adenopathy by size criteria.? Thyroid gland normal where well seen .? No suspicious bony lesions.? No vertebral body compression fractures.? ABDOMEN:? Vasculature:? Celiac trunk and mesenteric arteries are patent.? Renal arteries are also patent.? ? Solid organs:? Liver is normal in size and enhancement.? Gallbladder normal.? Biliary system is non dilated.? Pancreas enhances normally.? Spleen is normal in size and enhancement.? No adrenal nodules.? Both kidneys are normal in size and enhancement, without hydronephrosis, and horseshoe morphology at the lower is again noted as was the case 02/12/19..? ? Peritoneum and bowel:? No free fluid or air.? Bowel loops are normal in caliber and wall thickness.? ? Nodes and vessels:? No retroperitoneal or mesenteric adenopathy by size criteria.? Inferior vena cava is normal in morphology.? ? Miscellaneous:? No ventral hernias.? ? ? PELVIS:? Genitourinary:? Bladder wall thickness is normal.? ? Miscellaneous:? No inguinal hernias or adenopathy.? No ventral hernias.? Normal appendix. ? Bones:? No suspicious bony lesions.? No vertebral body compression fractures.? ? ? IMPRESSION:? No evidence of aortic dissection, aneurysm or inflammation.? Source of current pain is not found.? Note is made of normal appendix right lower quadrant.? Horseshoe kidney again noted. ? ? ? Dictated by: Rufino Mondragon M.D. on 03/11/2022 at 21:10 ? ? Approved by: Rufino Mondragon M.D. on 03/11/2022 at 21:18 ? MDM Narrative Medical decision making narrative: Patient with concerning presentation and septic initial findings without obvious specific source. IV fluids at 30 cc/kilogram (IBW due to BMI > 30) of normal saline, blood cultures, lactate and antibiotics ordered initially. Given widespread symptoms including pain both above and below the diaphragm as well as tachycardia and shortness of breath patient was evaluated for dissection and no significant findings noted on imaging such as pneumonia, pulmonary embolism, dissection, bowel obstruction or other. Urine is unremarkable. Warm skin with erythema and tenderness to palpation of the lower back concerning for cellulitis. Patient vital signs have improved with above-stated therapies the lactate still elevated at 2.2 after initial fluid bolus. Discharge Plan Departure Clinical Impression: Sepsis, Cellulitis, Abdominal pain Prescriptions: No Action losartan 50 mg tablet 100 mg PO DAILY Qty: 90 0RF metformin 1,000 mg tablet 1,000 mg PO BIDCC Qty: 180 1RF gabapentin 800 mg tablet 1,200 mg PO TID Qty: 135 5RF hydrocodone-acetaminophen 7.5-325 mg tablet 1 tab PO Q6H PRN (Reason: pain) Qty: 100 0RF Rx Instructions: EXEMPT Must last 30 days cyclobenzaprine 10 mg tablet 10 mg PO BID PRN (Reason: muscle spasm) Qty: 60 5RF dulaglutide 0.75 mg/0.5 mL pen injector 0.75 mg SUBCUT QWEEK (DME) FreeStyle Amie 2 Sensor Kit See Rx Instructions .ROUTE .MEDSUPPLY Qty: 1 Rx Instructions: As directed duloxetine 30 mg capsule,delayed release(DR/EC) 30 mg PO DAILY insulin detemir U-100 100 unit/mL (3 mL) insulin pen 30 unit SUBCUT BEDTIME insulin aspart U-100 [Novolog Flexpen U-100 Insulin] 100 unit/mL (3 mL) insulin pen 10 unit SUBCUT BID atorvastatin 40 mg tablet PO Referrals: Oswaldo Pickering MD [Primary Care Provider] -
[2022-03-11] MEDS: SODIUM CHLORIDE 0.9% 2,259 ML 753 ML IV (20:15)
--- NOTE | 2022-03-11 20:15 | PC.NURSE ---
Episode of vomiting noted at this time - MD aware - orders received
--- NOTE | 2022-03-11 20:19 | DI.CT.S_ITS ---
PROCEDURE: CT ANGIO CHEST ABDOMEN PELVIS INDICATIONS: chest pain, radiation to back, SOB, tachycardic TECHNIQUE: Precontrast 5 mm thick sections acquired from the lung apices to the iliac crests. After the administration of intravenous contrast, 2.5 mm thick sections again acquired from the lung apices to the iliac crests. Maximum intensity projection (MIP) oblique sagittal and coronal reformats were then acquired. For radiation dose reduction, the following was used: automated exposure control. COMPARISON: [facility], CT, CT ANGIO CHEST ABDOMEN PELVIS, 02/12/2019, 18:50. FINDINGS: Image quality: Excellent. AORTA: Intramural hematoma: Absent Maximum hematoma thickness: Not applicable. Focal contrast enhancement: Intramural blood pool (< 2 mm neck or imperceptible communication with aortic lumen): Absent . Ulcer-like projection (broad communication with aortic lumen > 3 mm): Absent . Dissection: Absent [place] classification: Not applicable Maximum aortic diameter: Normal aortic caliber Periaortic hematoma: Absent . CHEST: Lungs and pleura: No acute airspace opacities. No pleural effusions or pneumothorax. Central and peripheral airways are patent and normal in caliber. Mediastinum: Heart size is normal. No pericardial effusion. No mediastinal or hilar adenopathy by size criteria. Central pulmonary arteries are normal in size. Esophagus is normal in caliber. No hiatal hernias. Bones and chest wall: No axillary adenopathy by size criteria. Thyroid gland normal where well seen . No suspicious bony lesions. No vertebral body compression fractures. ABDOMEN: Vasculature: Celiac trunk and mesenteric arteries are patent. Renal arteries are also patent. Solid organs: Liver is normal in size and enhancement. Gallbladder normal. Biliary system is non dilated. Pancreas enhances normally. Spleen is normal in size and enhancement. No adrenal nodules. Both kidneys are normal in size and enhancement, without hydronephrosis, and horseshoe morphology at the lower is again noted as was the case 02/12/19.. Peritoneum and bowel: No free fluid or air. Bowel loops are normal in caliber and wall thickness. Nodes and vessels: No retroperitoneal or mesenteric adenopathy by size criteria. Inferior vena cava is normal in morphology. Miscellaneous: No ventral hernias. PELVIS: Genitourinary: Bladder wall thickness is normal. Miscellaneous: No inguinal hernias or adenopathy. No ventral hernias. Normal appendix. Bones: No suspicious bony lesions. No vertebral body compression fractures. IMPRESSION: No evidence of aortic dissection, aneurysm or inflammation. Source of current pain is not found. Note is made of normal appendix right lower quadrant. Horseshoe kidney again noted. Dictated by: Rufino Mondragon M.D. on 03/11/2022 at 21:10 Approved by: Rufino Mondragon M.D. on 03/11/2022 at 21:18
[2022-03-11 20:35] LABS: Alanine Aminotransferase 24 IU/L (<50); Albumin 3.9 g/dL (3.5-5.0); Albumin Globulin Ratio 1.1 (1.0-2.8); Alkaline Phosphatase 148 U/L (38-126); Aspartate Aminotransferase 23 IU/L (17-59); BUN Creatinine Ratio 16.5 (6-22); Bilirubin Total 1.8 mg/dL (0.2-1.3); Blood Urea Nitrogen 13 mg/dL (9-20); C-Reactive Protein Quant 8.6 mg/dL (<1.0); Calcium 8.4 mg/dL (8.4-10.2); Carbon Dioxide 24 mmol/L (22-32); Chloride 93 mmol/L (98-107); Estimated Glomerular Filt Rate > 60 mL/min (>60); Globulin 3.4 g/dL (1.7-4.1); Glucose 280 mg/dL (70-100); HEMOLYSIS < 15 (0-50); Lipase 102 U/L (23-300); Potassium 3.8 mmol/L (3.4-5.1); Sodium 131 mmol/L (137-145); Total Protein 7.3 g/dL (6.3-8.2)
[2022-03-11] MEDS: ONDANSETRON 4 MG/2 ML INJ IV (20:37)
[2022-03-11 20:38] LABS: Lactate (Lactic Acid) 4.4 mmol/L (0.7-2.1)
--- NOTE | 2022-03-11 20:45 | PC.NURSE ---
To CT via stretcher with tech
[2022-03-11 20:50] LABS: Add Manual Diff / Slide Review NO; Basophils Absolute Auto 100 /uL (0-100); Basophils Percent Auto 0.6 % (0-2); Eosinophils Absolute Auto 100 /uL (0-450); Eosinophils Percent Auto 0.7 % (2-4); Hemoglobin 13.4 g/dL (13.5-17.5); Lymphocytes Absolute Auto 700 /uL (1100-4500); Lymphocytes Percent Auto 5.9 % (25-40); Mean Corpuscular HGB Conc 33.4 % (30-36); Mean Corpuscular Hemoglobin 28.4 PG (26-34); Mean Corpuscular Volume 85.1 fL (80-100); Monocytes Absolute Auto 800 /uL (0-900); Monocytes Percent Auto 7.1 % (3-14); Neutrophils Absolute Auto 9800 /uL (1500-7000); Neutrophils Percent Auto 85.7 % (50-75); Platelet Count 340 X10^3/uL (150-400); Red Cell Distribution Width 13.6 % (11.6-14.8); White Blood Cell Count 11.4 X10^3/uL (4.5-11.0)
--- NOTE | 2022-03-11 20:56 | PC.NURSE ---
Returns to the ER from radiology via stretcher with tech
[2022-03-11] MEDS: cefTRIAXone 2,000 MG in SODIUM CHLORIDE 0.9% 100 ML 200 MG IV (20:57)
[2022-03-11 20:58] LABS: D Dimer 772 ng/ml (<500)
[2022-03-11 21:20] LABS: Erythrocyte Sedimentation Rate 58 MM/HR (0-15)
--- NOTE | 2022-03-11 21:30 | PC.NURSE ---
Resting quietly with bouts of yelling - states that the pain increases - denies needs - family at bedside - awaiting results
[2022-03-11] MEDS: HYDROMORPHONE 0.5 MG INJ IV (21:54)
[2022-03-11 22:13] LABS: Reflexed Lactate in 2 Hours Y
[2022-03-11] MEDS: VANCOMYCIN 2,000 MG/400 ML PIGGYBACK 200 MG IV (22:14)
--- NOTE | 2022-03-11 22:15 | PC.NURSE ---
No changes in pt status at this time
--- NOTE | 2022-03-11 22:15 | PC.NURSE ---
Episode of vomiting noted at this time - MD aware - orders received
[2022-03-11] MEDS: KETOROLAC 30 MG/ML VIAL 15 MG IV (22:38)
[2022-03-11 22:55] LABS: Lactate 2HR (Lactic Acid Rflx) 2.2 mmol/L (0.7-2.1)
--- NOTE | 2022-03-11 23:00 | PC.NURSE ---
Resting quietly in this moment - no needs voiced - PWD with respirations equal and unlabored bilaterally
--- NOTE | 2022-03-11 23:30 | PC.NURSE ---
No changes at this time
[2022-03-12] VITALS (12 sets, daily range): BP systolic 111–143; BP diastolic 69–84; PULSE 78–104; RESP 16–22; TEMP 36.5–37.4; O2SAT 94–100; BMI 38.9
--- NOTE | 2022-03-12 | PC.NURSE ---
Updated on status - awaiting results - family at bedside
--- NOTE | 2022-03-12 00:30 | PC.NURSE ---
Continues with intermittent bouts of yelling and moaning - states that the medication helped for about 5 minutes then was gone - has pain again - appears to be collicky in nature
[2022-03-12 00:32] LABS: Bacteria Urine None Seen; RBC Urine None Seen (0-5/HPF); WBC Urine None Seen (0-5/HPF)
--- NOTE | 2022-03-12 00:45 | PC.NURSE ---
given ice chips at this time
--- NOTE | 2022-03-12 01:00 | PC.NURSE ---
MD at bedside - family present
--- NOTE | 2022-03-12 01:45 | PC.NURSE ---
Report called to floor
[2022-03-12 01:51] LABS: Hemoglobin A1C% w Est Avg Glu 8.4 % (4.0-6.0)
--- NOTE | 2022-03-12 02:03 | PC.NURSE ---
Yelling out in pain - intermittent bouts of grunting and moaning - denies abdominal pain - states that it is his right hip and back - states that he fell on Sunday and landed on the right side - states that it is painful to walk but he is able to walk at this time without assistance - states that he almost fell the other day getting out of the bathtub - states that lifting the right leg causes his leg to feel weak - no abnormality noted - no shortening or external rotation noted - MD aware
[2022-03-12 02:07] LABS: Adenovirus Not Detected (Not Detect); B. parapertussis Not Detected (Not Detecte); Bordetella pertussis Not Detected (Not Detecte); Chlamydophila pneumoniae Not Detected (Not Detect); Coronavirus 229E Not Detected (Not Detect); Coronavirus HKU1 Not Detected (Not Detect); Coronavirus NL 63 Not Detected (Not Detect); Coronavirus OC43 Not Detected (Not Detect); Human Metapneumovirus Not Detected (Not Detect); Human Rhinovirus/Enterovirus Not Detected (Not Detect); Influenza A Not Detected (Not Detect); Influenza B Not Detected (Not Detect); Mycoplasma pneumoniae Not Detected (Not Detect); Parainfluenza Virus 1 Not Detected (Not Detect); Parainfluenza Virus 2 Not Detected (Not Detect); Parainfluenza Virus 3 Not Detected (Not Detect); Parainfluenza Virus 4 Not Detected (Not Detect); Respiratory Syncytial Virus Not Detected (Not Detect); SARS- CoV-2 Not Detected (Not Detecte)
--- NOTE | 2022-03-12 02:51 | P.HP_ITS ---
History of Present Illness History of Present Illness Date Patient Seen: 03/12/22 Time Patient Seen: 02:51 Chief complaint: Swollen ABD, Pain, Red Narrative: José Starr 51-year-old male nonsmoker with history of hyperlipidemia, diabetes, obesity, neuropathic pain, insomnia presented to the ED with complaints of severe generalized pain including chest, abdomen and is low to mid back.? Over the course of the afternoon on 03/11, he became febrile in short of breath and developed pain and redness of his lower back.? He denies any headache, blurred vision or dizziness.? He denies runny nose, sore throat or cough.? He has left sided lower chest pain and shortness of breath presently.? He states that he has chronic abdominal pain but what he is experiencing a slightly different than normal he states it is more generalized.? His abdominal worsens with motion and palpation.? He denies dysuria, frequency or urgency, diarrhea or constipation.? He denies any recent travel, new medications, new clothing or substances that he may have put on his back including laundry soap body soap or lotions, he denies any sick contacts in the home. CTA of the chest, abdomen pelvis reported ?No evidence of aortic dissection, aneurysm or inflammation.? Source of current pain is not found.? Note is made of normal appendix right lower quadrant.?Horseshoe kidney again noted. T-max was 100.6? it is currently 99.2 blood pressure is 116/81, heart rate 100, respiratory rate 20 oxygen saturation of 99% on room air he weighs 126.5 kg with a BMI of 30.9. His white count is mildly elevated at 11.4 hemoglobin 13.4 hematocrit 40, he has a mild left shift of 9800, his ESR is elevated at 58, D- dimer was elevated at 772 though CTA ruled out PE, sodium 131 chloride 93 glucose 280 with hemoglobin A1c of 8.4 his lactate currently is 2.2 however his presenting lactate upon admission to the ED was 4.4 total bilirubin was 1.8 alkaline phos 148 CRP 8.6 UA was negative for UTI respiratory panel including COVID-19 PCRs are all negative. FH: Reviewed with the patient and updated as below. Patient History Medical History Carpal tunnel syndrome (Unknown) Chronic pain syndrome (Unknown) Chronic right shoulder pain Diabetes (Unknown) Hx of tendinitis (~2017) Neuropathic pain Primary insomnia (03/13/16) Shoulder pain (2010) Uncomplicated opioid dependence (03/06/17) Uncomplicated opioid dependence Surgical History History of hernia repair (06/07/17) Hx of hernia repair (2005) Family & Social History Family History Brother Age: 54 Diabetes mellitus Father Essential hypertension Leukemia Mother Alive and well Other Primary insomnia Safety & Behavioral: Feels Safe in Current Yes Environment Been Physically Hurt or No Threatened By a Person Tobacco & Substance use: Smoking Status Never smoker alcohol intake current alcohol intake frequency holidays/special occasions Substance Use Type does not use Meds Home Medications and Allergies Home Medications Medication Instructions Recorded Confirmed Type atorvastatin 40 mg tablet mg PO 08/25/19 02/08/22 History flash glucose sensor (FreeStyle #1 ea 11/29/20 02/08/22 History Amie 2 Sensor kit) duloxetine 30 mg capsule,delayed 30 mg PO DAILY 03/03/21 02/08/22 History release insulin aspart U-100 100 unit/mL 10 unit SUBCUT BID 03/03/21 02/08/22 History (3 mL) subcutaneous pen (Novolog Flexpen U-100 Insulin aspart) insulin detemir U-100 100 unit/mL 30 unit SUBCUT BEDTIME 03/03/21 02/08/22 History (3 mL) subcutaneous pen cyclobenzaprine 10 mg tablet 10 mg PO BID PRN muscle spasm #60 02/08/22 02/08/22 Rx tabs dulaglutide 0.75 mg/0.5 mL 0.75 mg SUBCUT QWEEK 02/08/22 02/08/22 History subcutaneous pen injector gabapentin 800 mg tablet 1,200 mg PO TID #135 tabs 02/08/22 02/08/22 Rx hydrocodone 7.5 mg-acetaminophen 1 tab PO Q6H PRN pain #100 tabs 02/08/22 02/08/22 Rx 325 mg tablet losartan 50 mg tablet 50 mg PO DAILY 03/12/22 03/12/22 History metformin 1,000 mg tablet 1,000 mg PO BID 03/12/22 03/12/22 History Allergies Allergy/AdvReac Type Severity Reaction Status Date / Time lisinopril AdvReac Severe cough Verified 02/08/22 12:58 oxycodone AdvReac Severe Rage Verified 02/08/22 12:58 Review of Systems Review of Systems ROS: Yes All systems reviewed with the patient and are negative except as otherwise documented Exam Vital Signs (past 8 hours): - 03/11/22 19:52 03/11/22 20:00 03/11/22 20:15 Temperature 100.6 F H Pulse Rate 120 H 115 H 108 H Respiratory Rate 26 H 13 21 Blood Pressure 178/84 H Pulse Oximetry 99 99 99 Oxygen Delivery Method Room Air 03/11/22 20:30 03/11/22 20:57 03/11/22 21:00 Temperature Pulse Rate 110 H 108 H 110 H Respiratory Rate 41 H 20 20 Blood Pressure Pulse Oximetry 98 94 97 Oxygen Delivery Method 03/11/22 21:04 03/11/22 21:04 03/11/22 21:15 Temperature Pulse Rate 112 H 114 H Respiratory Rate 22 18 Blood Pressure 140/79 Pulse Oximetry 96 95 Oxygen Delivery Method 03/11/22 21:30 03/11/22 21:30 03/11/22 21:45 Temperature Pulse Rate 113 H 108 H Respiratory Rate 27 H 19 Blood Pressure 140/82 Pulse Oximetry 96 96 Oxygen Delivery Method 03/11/22 22:00 03/11/22 22:00 03/11/22 22:15 Temperature Pulse Rate 111 H 110 H Respiratory Rate 31 H 19 Blood Pressure 134/92 H Pulse Oximetry 97 96 Oxygen Delivery Method 03/11/22 22:30 03/11/22 23:00 03/11/22 23:30 Temperature Pulse Rate 105 H 109 H 104 H Respiratory Rate 20 30 H 34 H Blood Pressure Pulse Oximetry 97 98 97 Oxygen Delivery Method 03/12/22 00:46 03/12/22 00:00 03/12/22 00:30 Temperature 99.2 F Pulse Rate 102 H 104 H Respiratory Rate 19 22 Blood Pressure Pulse Oximetry 96 95 Oxygen Delivery Method 03/12/22 00:36 03/12/22 00:36 03/12/22 01:00 PST Temperature 99.2 F Pulse Rate 101 H Respiratory Rate 20 Blood Pressure 143/71 H 120/74 Pulse Oximetry 95 Oxygen Delivery Method 03/12/22 01:00 PST 11/06/22 01:30 PST 03/12/22 01:30 PST Temperature Pulse Rate 100 H 99 H Respiratory Rate 16 20 Blood Pressure 116/81 Pulse Oximetry 97 98 Oxygen Delivery Method 03/12/22 02:00 Temperature Pulse Rate 100 H Respiratory Rate 20 Blood Pressure Pulse Oximetry 99 Oxygen Delivery Method Oxygen Delivery Method Room Air Narrative Exam Narrative: Gen: Alert, oriented, morbidly obese 51 y.o. female, tachypneac, m oderate distress HEENT: normocephalic, atraumatic, conjunctiva clear, sclera non-icteric, oral mucosa pink and moist Neck: supple, full ROM, no JVD, trachea is midline Resp: Course lung sounds, labored breathing CV: RRR, no murmur or rubs Abd: soft, diffusely tender, normoactive BTs, nauseous with abdominal gas Skin: has rossi shaped area of erythema extending from bilateral hips, raised, hot and tender, no vesicles, superior aspect appears to follow dermatomes bilaterally Neuro: Alert and oriented X 4 w/no focal deficits. Speech clear and coherent. Extremities: moves all 4 extremities, is ambulatory, negative Sara?s sign Psyche: anxious, normal mood and affect. Objective Labs Result Diagrams: 03/11/22 20:40 03/11/22 20:00 Labs: Laboratory Results - last 24 hr 03/11/22 03/11/22 03/11/22 20:00 20:00 20:40 WBC 11.4 H RBC 4.70 Hgb 13.4 L Hct 40.0 L MCV 85.1 MCH 28.4 MCHC 33.4 RDW 13.6 Plt Count 340 Neut % (Auto) 85.7 H Lymph % (Auto) 5.9 L Nicholas % (Auto) 7.1 Eos % (Auto) 0.7 L Baso % (Auto) 0.6 Neut # (Auto) 9800 H Lymph # (Auto) 700 L Nicholas # (Auto) 800 Eos # (Auto) 100 Baso # (Auto) 100 ESR 58 H D-Dimer Sodium 131 L Potassium 3.8 Chloride 93 L Carbon Dioxide 24 BUN 13 Creatinine 0.79 Estimated GFR > 60 BUN/Creatinine Ratio 16.5 Glucose 280 H Hemoglobin A1c Lactate 4.4 H* Calcium 8.4 Total Bilirubin 1.8 H AST 23 ALT 24 Alkaline Phosphatase 148 H C-Reactive Protein 8.6 H Total Protein 7.3 Albumin 3.9 Globulin 3.4 Albumin/Globulin Ratio 1.1 Lipase 102 Urine RBC Urine WBC Urine Bacteria Micro UA Comment Chlamy pneumoniae PCR Adenovirus (PCR) B. pertussis DNA (PCR) B.parapertussis DNA PCR Coronavirus OC43 (PCR) Coronavirus HKU1 (PCR) Coronavirus 229E (PCR) SARS-CoV-2 (PCR) Coronavirus NL63 (PCR) Human Metapneumovir PCR Influenza Type A (PCR) Influenza Type B (PCR) M. pneumoniae (PCR) Parainfluenza 1 (PCR) Parainfluenza 2 (PCR) Parainfluenza 3 (PCR) Parainfluenza 4 (PCR) RSV (PCR) Entero/Rhino (PCR) 03/11/22 03/11/22 03/11/22 20:40 20:40 22:33 WBC RBC Hgb Hct MCV MCH MCHC RDW Plt Count Neut % (Auto) Lymph % (Auto) Nicholas % (Auto) Eos % (Auto) Baso % (Auto) Neut # (Auto) Lymph # (Auto) Nicholas # (Auto) Eos # (Auto) Baso # (Auto) ESR D-Dimer 772 H Sodium Potassium Chloride Carbon Dioxide BUN Creatinine Estimated GFR BUN/Creatinine Ratio Glucose Hemoglobin A1c 8.4 H Lactate 2.2 H Calcium Total Bilirubin AST ALT Alkaline Phosphatase C-Reactive Protein Total Protein Albumin Globulin Albumin/Globulin Ratio Lipase Urine RBC Urine WBC Urine Bacteria Micro UA Comment Chlamy pneumoniae PCR Adenovirus (PCR) B. pertussis DNA (PCR) B.parapertussis DNA PCR Coronavirus OC43 (PCR) Coronavirus HKU1 (PCR) Coronavirus 229E (PCR) SARS-CoV-2 (PCR) Coronavirus NL63 (PCR) Human Metapneumovir PCR Influenza Type A (PCR) Influenza Type B (PCR) M. pneumoniae (PCR) Parainfluenza 1 (PCR) Parainfluenza 2 (PCR) Parainfluenza 3 (PCR) Parainfluenza 4 (PCR) RSV (PCR) Entero/Rhino (PCR) 03/11/22 03/12/22 23:35 00:55 WBC RBC Hgb Hct MCV MCH MCHC RDW Plt Count Neut % (Auto) Lymph % (Auto) Nicholas % (Auto) Eos % (Auto) Baso % (Auto) Neut # (Auto) Lymph # (Auto) Nicholas # (Auto) Eos # (Auto) Baso # (Auto) ESR D-Dimer Sodium Potassium Chloride Carbon Dioxide BUN Creatinine Estimated GFR BUN/Creatinine Ratio Glucose Hemoglobin A1c Lactate Calcium Total Bilirubin AST ALT Alkaline Phosphatase C-Reactive Protein Total Protein Albumin Globulin Albumin/Globulin Ratio Lipase Urine RBC None seen Urine WBC None seen Urine Bacteria None seen Micro UA Comment * Chlamy pneumoniae PCR Not detected Adenovirus (PCR) Not detected B. pertussis DNA (PCR) Not detected B.parapertussis DNA PCR Not detected Coronavirus OC43 (PCR) Not detected Coronavirus HKU1 (PCR) Not detected Coronavirus 229E (PCR) Not detected SARS-CoV-2 (PCR) Not detected Coronavirus NL63 (PCR) Not detected Human Metapneumovir PCR Not detected Influenza Type A (PCR) Not detected Influenza Type B (PCR) Not detected M. pneumoniae (PCR) Not detected Parainfluenza 1 (PCR) Not detected Parainfluenza 2 (PCR) Not detected Parainfluenza 3 (PCR) Not detected Parainfluenza 4 (PCR) Not detected RSV (PCR) Not detected Entero/Rhino (PCR) Not detected Assessment & Plan Assessment & Plan narrative: José Starr is placed into observation for a sepsis of unknown origin. Severe sepsis of unknown cause, currently presumed to be cellulitis * Blood cx collected in the ED and pending * 3rd lactate to be drawn due to elevation on repeat, currently pending * Have ordered a stat troponin * IV ceftriaxone 1 gram daily, he was given 2 grams in the ED Severe Sepsis Criteria [ X ] bacterial source of infection suspected and documented [ ] 2 SIRS Criteria met [X ] HR >90 [X ] RR >20 [X ] fever or hypothermia [X ] leukocytosis/leukopenia/bandemia [ ] Evidence of at least 1 organ system dysfunction [X ] Lactate > 2 [ ] BP < 90 or MAP <65, >40mm decrease from normal baseline [ ] Creat > 2.0 [ ] T. Bili > 2.0 [ ] platelet count < 100k [ ] altered mental status [ ] mechanical ventilation [ ] provider documentation of severe sepsis Severe Sepsis Determination. the patient has been screened and [ ] DOES meet criteria for severe sepsis [ ] DOES NOT meet criteria for severe sepsis Goal directed treatment Within 3 hours [X ] blood cx drawn prior to abx [ X ] broad spectrum abx started [ X ] lactic acid level checked [X ] lactic redrawn within 6 hours if >2.0 Septic Shock Criteria [ X ] lactic > 4 at any time [ ] SBP ,90 or MAP , 65 [ ] documentation of septic shock Time Septic Shock diagnosed: [ diagnosed in the ED. ] Septic Shock Determination. the patient has been screened and [X ] DOES meet criteria for septic shock [ ] DOES NOT meet criteria for septic shock Goal directed therapy within 3 hours of septic shock or initial hypotension [X ] 30ml/kg fluid [ ] ABW used [X ] IBW (33.6) used due to BMI > 30 [ ] patient or advocate declining fluid administration after shared decision making conversation Clinical reason for NOT initiating fluid bolus: Within 6 hours (if continued hypotension after fluids or initial lactate >4) [ ] repeat volume status and tissue perfusion assessment documented after fluid bolus was completed at [Date/Time] Must include vital signs, cardiopulmonary exam, capillary refill, peripheral pulse evaluation, skin exam [ ] Initiate vasopressor therapy if persistent hypotension after adequate fluid bolus Chest pain, acute and present on admission * Troponin will be drawn * Consider if he needs an echo in the am Diabetes type 2 poor control * His A1c is 8.4 is actually improved over priors * He sees and insurance representative and was recently started on dulaglutide * Will start glargine 30 units, novolog 10 units with meals, medium dose correctional scale Essential hypertension, chronic * Continue home dose of losartan 100 mg po daily HLD, chronic * Continue home dose of atorvastatin 40 mg at hs VTE Prophylaxis: Wells risk score 1.5 X Enoxaparin 40 mg subQ once daily Bilateral SCDs Patient is admitted to the inpatient service due to the severity of disease, risks of further disease progression and this stay is expected to exceed 2 midnights. FEN: IV fluids: NS at 150 ml/hour, diet: carb control, labs: CBC, C/BMP, liver enzymes, Mag, PT/INR Consultants None Dispo: unknown at this time Code status: full code as discussed with the patient who identifies his mother Sumaya as his surrogate and POA. [X] I have utilized all available immediate resources to obtain, update, or review of the patient's current medications VTE Deep Vein Thrombosis/Pulmonary Embolism Present on Admission: No MIPS - Admit I confirm the patient?s Advance Care Plan is present, Code status is documented, Surrogate decision maker is in patient?s record: Yes MIPS - DC The patient has current or prior documentation of left ventricular ejection fraction (LVEF) less than 40%, or moderate or severely depressed left ventricular systolic function.: No COVID-19 COVID-19 status: Negative Result date/Date tested (Pos, Neg/Pending): 03/12/22 Time Spent With Patient Critical Care time: I spent a total of [] minutes of critical care time on this patient's care today; this time is exclusive of procedural time. Scores Wells' Criteria for PE Clinical signs and symptoms of DVT: No PE is #1 Dx or equally likely: No Heart rate > 100: Yes Immobilization at least 3 days or surg in previous 4 weeks: No History of PE or DVT: No Hemoptysis: No Malignancy w/Treatment within 6 months or palliative: No Wells' PE Score total: 1.5
[2022-03-12] MEDS: METOCLOPRAMIDE 10 MG/2 ML INJ IV (03:21)
[2022-03-12] MEDS: PANTOPRAZOLE 40 MG VIAL IV (03:21)
[2022-03-12] MEDS: SODIUM CHLORIDE 0.9% 1,000 ML 150 ML IV ×3 (03:33→19:38)
[2022-03-12 04:11] LABS: Add Manual Diff / Slide Review NO; Basophils Absolute Auto 100 /uL (0-100); Basophils Percent Auto 0.4 % (0-2); Eosinophils Absolute Auto 0 /uL (0-450); Eosinophils Percent Auto 0.2 % (2-4); Hematocrit 38.7 % (41-53); Hemoglobin 13.3 g/dL (13.5-17.5); Lymphocytes Absolute Auto 1300 /uL (1100-4500); Lymphocytes Percent Auto 9.6 % (25-40); Mean Corpuscular HGB Conc 34.2 % (30-36); Mean Corpuscular Hemoglobin 28.7 PG (26-34); Mean Corpuscular Volume 83.9 fL (80-100); Monocytes Absolute Auto 1200 /uL (0-900); Monocytes Percent Auto 8.9 % (3-14); Neutrophils Absolute Auto 11000 /uL (1500-7000); Neutrophils Percent Auto 80.9 % (50-75); Platelet Count 330 X10^3/uL (150-400); Red Blood Cell Count 4.62 X10^6/uL (4.5-5.9); Red Cell Distribution Width 13.6 % (11.6-14.8); White Blood Cell Count 13.6 X10^3/uL (4.5-11.0)
[2022-03-12 04:16] LABS: Lactate (Lactic Acid) 1.9 mmol/L (0.7-2.1); Magnesium 1.7 mg/dL (1.6-2.3)
[2022-03-12 04:17] LABS: BUN Creatinine Ratio 18.5 (6-22); Blood Urea Nitrogen 15 mg/dL (9-20); Calcium 7.8 mg/dL (8.4-10.2); Carbon Dioxide 18 mmol/L (22-32); Chloride 99 mmol/L (98-107); Estimated Glomerular Filt Rate > 60 mL/min (>60); Glucose 236 mg/dL (70-100); HEMOLYSIS < 15 (0-50); Potassium 3.3 mmol/L (3.4-5.1); Sodium 133 mmol/L (137-145)
[2022-03-12 04:29] LABS: Troponin I < 0.012 ng/mL (0.01-0.034)
[2022-03-12] MEDS: INSULIN LISPRO 100 UNIT/ML 3ML VIAL 10 UNIT SUBCUT ×3 (08:26→16:54)
[2022-03-12] MEDS: INSULIN LISPRO 100 UNIT/ML 3ML VIAL SUBCUT ×3 (08:27→16:55)
[2022-03-12] MEDS: INSULIN GLARGINE 100 UNIT/ML 3ML PEN 30 UNIT SUBCUT (09:31)
[2022-03-12] MEDS: polyethylene glycoL 3350 17 GM POWD.PACK PO (09:38)
[2022-03-12] MEDS: ENOXAPARIN 40 MG/0.4 ML SYRINGE SUBCUT (09:38)
[2022-03-12] MEDS: DULOXETINE 30 MG CAPSULE PO (09:38)
[2022-03-12] MEDS: KETOROLAC 30 MG/ML VIAL IV ×2 (09:38→19:38)
[2022-03-12] MEDS: ACETAMINOPHEN 325 MG TABLET 650 MG PO (09:38)
[2022-03-12] MEDS: LOSARTAN 50 MG TABLET 100 MG PO (09:38)
[2022-03-12] MEDS: POTASSIUM CHLORIDE 20 MEQ TAB 40 MEQ PO ×2 (09:43→15:53)
--- NOTE | 2022-03-12 12:02 | CM.DANOTE ---
Patient is a 51 yo male who was admitted on 03/12/22 today for Pain/Swollen. Pt has [employer] for insurance and his PCP is Dr. Oswaldo Pickering. EMR was reviewed. Per MD, pt with hx of diabetes and insomnia and has chronic pain at baseline and admitted for sepsis with unknown etiology. Pt has [facility] and has PCP closely following for pt's chronic pain management issues. Pt on IV-Abx currently and pain seems somewhat better controlled now as pt previously had been moaning in discomfort. SW met bedside with pt and explained role and pt confirms that he currently lives in [place] with his mother and is and not employed due to disability from chronic pain issues. Pt denies any DME for ambulation at baseline and denies any hx of HH or SNF. Pt confirms that his pain is better today than yesterday and that his pain was different from my usual back/abd pain issues. Pt states his mother is available for assist and would provide transport at d/c. Pt states he does not yet feel stable for d/c from the hospital. Plan: SW to follow closely to confirm safe plan of home with mother assist when medically stable and any further identified needs. LUCY Royal Discharge Planning/Care Management CM Discharge Assessment Start: 03/12/22 11:59 Freq: Status: Active Protocol: Document 03/12/22 11:59 BF (Rec: 03/12/22 12:01 BF [id number]) Discharge Planning Assessment Assigned Sole Splitter LUCY Crane DPOA/Assigned Designee Name informally mother Sumaya Advance Directives? No Advance Directives on File No History Provided By Patient,Family Member,Medical Record Has Patient been admitted in last 30 No days? Prior Living Arrangements House Comment pt reports he lives at home with mother based on disability r/t chronic hernia pain Household Members family Type of transporation used prior to Drives own vehicle admit Independent with ADL's Yes Is patient alert and oriented? Yes Needs Assistance With Home Chores / Shopping Caregiver for Another No Barriers to Discharge No Discharge Plan Home Transportation Arrangement mother to provide transport at d/c Referrals Initiated None needed Whiteboard Updated in Patient Room with Yes name and ext. # of Sole Splitter Review Status In Process Please Provide Date Initial DC 03/12/22 Assessment Was Performed Next Review Type Continued Stay Review
[2022-03-12] MEDS: cefTRIAXone 1,000 MG in SODIUM CHLORIDE 0.9% 100 ML 200 MG IV (19:38)
[2022-03-12] MEDS: ATORVASTATIN 20 MG TABLET 40 MG PO (20:48)
[2022-03-13] MEDS: SODIUM CHLORIDE 0.9% 1,000 ML 150 ML IV (02:58)
--- NOTE | 2022-03-13 04:19 | PC.NURSE ---
Pt is AxOx4, independent and cooperative. VSS, pt c/o pain on his back around the rash area and recieved PRN Toradol once around 8 pm with good effect. Pt's rash on his back looks very pink and warm. RN did some outlining of the rash in case if it is increasing. Pt stated that his rash is getting painful and requires pain med. Otherwise, pt is doing well. Pt slept well. No other changes.
[2022-03-13 05:41] LABS: Add Manual Diff / Slide Review NO; Basophils Absolute Auto 100 /uL (0-100); Basophils Percent Auto 0.7 % (0-2); Eosinophils Absolute Auto 300 /uL (0-450); Eosinophils Percent Auto 2.5 % (2-4); Hematocrit 33.5 % (41-53); Hemoglobin 11.3 g/dL (13.5-17.5); Lymphocytes Absolute Auto 1900 /uL (1100-4500); Lymphocytes Percent Auto 16.4 % (25-40); Mean Corpuscular HGB Conc 33.7 % (30-36); Mean Corpuscular Hemoglobin 28.6 PG (26-34); Mean Corpuscular Volume 85.1 fL (80-100); Monocytes Absolute Auto 900 /uL (0-900); Monocytes Percent Auto 7.5 % (3-14); Neutrophils Absolute Auto 8700 /uL (1500-7000); Neutrophils Percent Auto 72.9 % (50-75); Platelet Count 336 X10^3/uL (150-400); Red Blood Cell Count 3.94 X10^6/uL (4.5-5.9); Red Cell Distribution Width 13.5 % (11.6-14.8); White Blood Cell Count 11.9 X10^3/uL (4.5-11.0)
[2022-03-13 05:47] LABS: BUN Creatinine Ratio 23.9 (6-22); Blood Urea Nitrogen 16 mg/dL (9-20); Calcium 7.5 mg/dL (8.4-10.2); Carbon Dioxide 19 mmol/L (22-32); Chloride 108 mmol/L (98-107); Estimated Glomerular Filt Rate > 60 mL/min (>60); Glucose 160 mg/dL (70-100); HEMOLYSIS < 15 (0-50); Potassium 3.6 mmol/L (3.4-5.1); Sodium 137 mmol/L (137-145)
[2022-03-13 06:00] VITALS: BP 121/84; PULSE 82; RESP 14; TEMP 36.8; O2SAT 98
[2022-03-13 07:25] VITALS: BP 125/81; PULSE 84; RESP 18; TEMP 36.6; O2SAT 99
[2022-03-13] MEDS: KETOROLAC 30 MG/ML VIAL IV (07:53)
[2022-03-13] MEDS: INSULIN LISPRO 100 UNIT/ML 3ML VIAL 10 UNIT SUBCUT (07:59)
[2022-03-13] MEDS: INSULIN LISPRO 100 UNIT/ML 3ML VIAL SUBCUT (08:00)
[2022-03-13] MEDS: INSULIN GLARGINE 100 UNIT/ML 3ML PEN 30 UNIT SUBCUT (08:01)
[2022-03-13 09:38] VITALS: BP 125/81; PULSE 84
[2022-03-13] MEDS: LOSARTAN 50 MG TABLET 100 MG PO (09:38)
[2022-03-13] MEDS: DULOXETINE 30 MG CAPSULE PO (09:39)
--- NOTE | 2022-03-13 11:13 | PC.NURSE ---
09:52 Pt dressed and ready for discharge home via pov with family member. Pt IV removed and no tele. Pt denies having valuables held in the safe here and denies having prescriptions being held at the pharmacy here. Discussed d/c instructions with the pt and provided education about cellulitis and new medications. Answered pt questions. Pt taken out via wheel chair by MAKSIM.
--- NOTE | 2022-03-13 12:09 | CM.DPC ---
DCP Discharge home Per MD, pt is medically stable to d/c home today and back to baseline with chronic pain issues and no identified barriers to discharge. Per RN, no concerns at this time and d/c instructions provided and family arrived to provide transport home and pt taken down to POV. Plan: Patient to d/c home this morning via family POV and ongoing outpt f/u for chronic pain. LUCY Royal
--- NOTE | 2022-03-13 15:50 | PM.DS.1 ---
History of Present Illness History of Present Illness Date Patient Seen: 03/12/22 Time Patient Seen: 02:51 Chief complaint: Swollen ABD, Pain, Red Narrative: Per admitting provider: José Starr 51-year-old male nonsmoker with history of hyperlipidemia, diabetes, obesity, neuropathic pain, insomnia presented to the ED with complaints of severe generalized pain including chest, abdomen and is low to mid back.? Over the course of the afternoon on 03/11, he became febrile in short of breath and developed pain and redness of his lower back.? He denies any headache, blurred vision or dizziness.? He denies runny nose, sore throat or cough.? He has left sided lower chest pain and shortness of breath presently.? He states that he has chronic abdominal pain but what he is experiencing a slightly different than normal he states it is more generalized.? His abdominal worsens with motion and palpation.? He denies dysuria, frequency or urgency, diarrhea or constipation.? He denies any recent travel, new medications, new clothing or substances that he may have put on his back including laundry soap body soap or lotions, he denies any sick contacts in the home. CTA of the chest, abdomen pelvis reported ?No evidence of aortic dissection, aneurysm or inflammation.? Source of current pain is not found.? Note is made of normal appendix right lower quadrant.?Horseshoe kidney again noted. T-max was 100.6? it is currently 99.2 blood pressure is 116/81, heart rate 100, respiratory rate 20 oxygen saturation of 99% on room air he weighs 126.5 kg with a BMI of 30.9. His white count is mildly elevated at 11.4 hemoglobin 13.4 hematocrit 40, he has a mild left shift of 9800, his ESR is elevated at 58, D-dimer was elevated at 772 though CTA ruled out PE, sodium 131 chloride 93 glucose 280 with hemoglobin A1c of 8.4 his lactate currently is 2.2 however his presenting lactate upon admission to the ED was 4.4 total bilirubin was 1.8 alkaline phos 148 CRP 8.6 UA was negative for UTI respiratory panel including COVID-19 PCRs are all negative. FH: Reviewed with the patient and updated as below. Discharge Providers Provider Date of admission: 03/12/22 01:55 PDT Discharge Date: 03/13/22 Primary care physician: Oswaldo Pickering MD Consults: 03/12/22 02:50 Consult to Respiratory Therapy Evaluate & Treat Comment: YASMANI needs CPAP Physician Instructions: Evaluate and treat Discharge provider: Maksim Matthews MD Summary Hospital Course Discharge Diagnosis: 1. Sepsis from cellulitis 2. Type 2 Diabetes 3. Obesity 4. Hypertension 5. Hyperlipidemia Hospital Course: Mr. Starr was admitted with cellulitis and sepsis. He was started on IV antibiotics. He had no evidence of necrotizing fascitis, and he improved quite quickly with initiation of treatment. On day of discharge he was over 24 hours since her last fever and his white count was decreasing towards normal. His pain was improving as well. Cultures were not growth to date at time of discharge. He was discharged on bactrim and keflex for a planned additional week and should follow up with his PCP within one week. Exam Vital Signs (past 8 hours): - 03/13/22 09:38 Pulse Rate 84 Blood Pressure 125/81 Oxygen Delivery Method Room Air Oxygen Flow Rate 0 Narrative Exam Narrative: GEN: no acute distress CV: regular rate and rhythm PULM: clear bilaterally SKIN: large area of erythema bilaterally on the back, warm and tender to touch, receding from demarcated area, no vesicles or fluctuance noted Objective Labs Result Diagrams: 03/13/22 05:20 03/13/22 05:20 Labs: Laboratory Results - last 24 hr 03/13/22 03/13/22 05:20 05:20 WBC 11.9 H RBC 3.94 L Hgb 11.3 L Hct 33.5 L MCV 85.1 MCH 28.6 MCHC 33.7 RDW 13.5 Plt Count 336 Neut % (Auto) 72.9 Lymph % (Auto) 16.4 L Hodgeman % (Auto) 7.5 Eos % (Auto) 2.5 Baso % (Auto) 0.7 Neut # (Auto) 8700 H Lymph # (Auto) 1900 Hodgeman # (Auto) 900 Eos # (Auto) 300 Baso # (Auto) 100 Sodium 137 Potassium 3.6 Chloride 108 H Carbon Dioxide 19 L BUN 16 Creatinine 0.67 Estimated GFR > 60 BUN/Creatinine Ratio 23.9 H Glucose 160 H Calcium 7.5 L PFSH Medical History Carpal tunnel syndrome (Unknown) Chronic pain syndrome (Unknown) Chronic right shoulder pain Diabetes (Unknown) Hx of tendinitis (~2017) Neuropathic pain Primary insomnia (03/13/16) Shoulder pain (2010) Uncomplicated opioid dependence (03/06/17) Uncomplicated opioid dependence Surgical History History of hernia repair (06/07/17) Hx of hernia repair (2005) Family History Brother Age: 54 Diabetes mellitus Father Essential hypertension Leukemia Mother Alive and well Other Primary insomnia Social History (Reviewed 03/12/22 @ 01:14 PDT by Victor Manuel Guzman DO) household members: family Smoking Status: Never smoker alcohol intake: current substance use type: does not use Discharge Plan Discharge Plan Patient Disposition: Home Provider Discharge Comment: Mr. Starr came in to the hospital with a skin infection. He improved with antibiotics. He should finish the prescription of these two antibiotics. Discharge orders & Medications Prescriptions: New sulfamethoxazole-trimethoprim [Bactrim DS] 800-160 mg tablet 1 tab PO BID Qty: 14 0RF cephalexin 500 mg capsule 500 mg PO QID Qty: 28 0RF Continued gabapentin 800 mg tablet 1,200 mg PO TID Qty: 135 5RF Rx Instructions: Take 1.5 tabs three times a day by mouth cyclobenzaprine 10 mg tablet 10 mg PO BID PRN (Reason: muscle spasm) Qty: 60 5RF dulaglutide 0.75 mg/0.5 mL pen injector 0.75 mg SUBCUT QWEEK (DME) FreeStyle Amie 2 Sensor Kit See Rx Instructions .ROUTE .MEDSUPPLY Qty: 1 Rx Instructions: As directed duloxetine 30 mg capsule,delayed release(DR/EC) 30 mg PO DAILY insulin detemir U-100 100 unit/mL (3 mL) insulin pen See Rx Instructions .ROUTE .COMPLEX Label Comments: Sliding scale given by provider; pt unable to recall sliding scale info Rx Instructions: SUBCUT at bedtime based on sliding scale insulin aspart U-100 [Novolog Flexpen U-100 Insulin] 100 unit/mL (3 mL) insulin pen 24 unit SUBCUT AC losartan 50 mg tablet 50 mg PO DAILY metformin 1,000 mg tablet 1,000 mg PO BID atorvastatin 40 mg tablet 40 mg PO DAILY No Action hydrocodone-acetaminophen 7.5-325 mg tablet 1 tab PO Q6H PRN (Reason: pain) Qty: 100 0RF Rx Instructions: EXEMPT Must last 30 days Follow up/Referrals: Oswaldo Pickering MD [Primary Care Provider] - 3-5 Days Diet/Activity/Treatments Diet: Carb-consistent/Diabetic Visit Report/Discharge Packet Instructions: DI for Cellulitis -- Adult, Sepsis, Cephalexin Discharge Data Primary Care Provider: Oswaldo Pickering Attending Provider: Juany Mederos VTE Deep Vein Thrombosis/Pulmonary Embolism Present on Admission: No
--- NOTE | 2022-03-22 11:55 | PC.NURSE ---
Late entry; Ceftriaxone infusion initiated 03/12 at 1938 complete at 2008.
== END 2022-03-13 09:55 | disposition home or self-care (01) ==
LOC: ED 03-12 01:53 → AC 03-12 01:55
PROVIDERS: Admitting Provider Nurse Practitioner Family; Emergency Provider Emergency Medicine; Family Provider Student in an Organized Health Care Education/Training Program; PCP Student in an Organized Health Care Education/Training Program; Referring Provider Emergency Medicine; Visit Provider Nurse Practitioner Family
DX: R50.9 Fever, unspecified (principal); A41.9 Sepsis, unspecified organism; L03.312 Cellulitis of back [any part except buttock and flank]; R07.9 Chest pain, unspecified; R10.84 Generalized abdominal pain; Q63.1 Lobulated, fused and horseshoe kidney; I10 Essential (primary) hypertension; E78.5 Hyperlipidemia, unspecified; E66.9 Obesity, unspecified; E11.9 Type 2 diabetes mellitus without complications; Z79.4 Long term (current) use of insulin; Z79.84 Long term (current) use of oral hypoglycemic drugs; Z68.30 Body mass index [BMI] 30.0-30.9, adult; Z20.822 Contact with and (suspected) exposure to COVID-19
CPT/HCPCS: 36415; 71275; 74174; 80048; 80053; 81003; 81015; 82962; 83036; 83605; 83690; 83735; 84484; 85025; 85379; 85651; 86140; 87040; 87086; 87633; 93005; 93010; 96365; 96366; 96367; 96372; 96375; 96376; 99284; G0378; C9113; J0696; J1170; J1650; J1815; J1885; J2405; J2765; Q9967

== ENCOUNTER → 2022-10-04 14:23 | Outpatient (CLI) | payer OTHER, MEDICAID, SELFPAY ==
[2022-03-12 01:57] VITALS: BMI 38.9
[2022-10-04 14:58] LABS: Albumin 4.3 g/dL (3.5-5.0); BUN Creatinine Ratio 22.7 (6-22); Blood Urea Nitrogen 17 mg/dL (9-20); Calcium 8.9 mg/dL (8.4-10.2); Carbon Dioxide 30 mmol/L (22-32); Chloride 100 mmol/L (98-107); Cholesterol 136 mg/dL (140-199); Estimated Glomerular Filt Rate > 60 mL/min (>60); Glucose 166 mg/dL (70-100); HDL Cholesterol 38 mg/dL (40-60); HEMOLYSIS < 15 (0-50); LDL Cholesterol Calculated 53 mg/dL (<100); Phosphorous 3.3 mg/dL (2.5-4.5); Potassium 4.6 mmol/L (3.4-5.1); Sodium 138 mmol/L (137-145); Triglycerides 225 mg/dL (35-150)
[2022-10-04 16:17] LABS: Creatinine Urine Random 164.7 mg/dL
[2022-10-04 16:20] LABS: Microalbumi Creatinin Ratio Ur 69.2 ug/mg CR (<30); Microalbumin Urine Random 11.4 mg/dL (0-1.6)
== END ==
PROVIDERS: Family Provider Student in an Organized Health Care Education/Training Program; PCP Student in an Organized Health Care Education/Training Program; Referring Provider Student in an Organized Health Care Education/Training Program; Visit Provider Student in an Organized Health Care Education/Training Program
DX: E11.69 Type 2 diabetes mellitus with other specified complication (principal); E11.29 Type 2 diabetes mellitus with other diabetic kidney complication; R80.9 Proteinuria, unspecified
CPT/HCPCS: 36415; 80061; 80069; 82043; 82570

== ENCOUNTER 2022-11-03 13:30 | Outpatient (RCR) | payer OTHER, MEDICAID, SELFPAY ==
[2022-03-12 01:57] VITALS: BMI 38.9
--- NOTE | 2022-05-03 15:49 | PT.OIE ---
Current Diagnoses Pain in left shoulder (05/03/22) Stiffness of left shoulder, not elsewhere classified (05/03/22) Impingement syndrome of left shoulder (05/03/22) Encounter for other specified surgical aftercare (05/03/22) Past Medical History (Last Updated 03/26/22 @ 08:49 by Oswaldo Pickering MD) Carpal tunnel syndrome (Unknown) Chronic pain syndrome (Unknown) Chronic right shoulder pain Hx of tendinitis (~2016) Neuropathic pain Primary insomnia (03/13/16) Shoulder pain (2010) Type 2 diabetes mellitus without complication, without long-term current use of insulin (12/15/15) Uncomplicated opioid dependence (03/06/17) Uncomplicated opioid dependence Past Surgical History (Last Reviewed 03/12/22 @ 03:02 by FOREIGN [place]) History of hernia repair (06/07/17) Hx of hernia repair (2005) Visit Care Team Role Provider Type Oswaldo Pickering MD Family Provider Physician Primary Care Provider Specialty: Internal Medicine Address: [address] [place] [address], [address], [address] Email: [email or web address] David Watkins PA-C Attending Provider Non-Staff Referring Provider Specialty: Medical Address: [address] [place] [address], [address] Phone: Email: Physical Therapy Initial Evaluation PT-OP-A Visit Information Start: 05/03/22 14:19 Freq: Status: Active Protocol: Document 05/03/22 13:45 DCW (Rec: 05/03/22 14:29 DCW [id number]) Out-Patient Physical Therapy Visit Information Visit Information Visit Type Initial Evaluation Visit Start Time 13:45 Visit Stop Time 14:15 Total Visit Minutes 30 Visit Number 1 Number of MONORAIL HOOKER Visits 0 Evaluation Information Evaluation Date 05/03/22 Precautions Precautions Phase I protocol: Sling (0-2 weeks) Scapular and GH Mobilization Pendulums/Cane/Javi Isometrics in all directions Biceps/Triceps exercises Modalities PRN PT-OP-B Current Condition Start: 05/03/22 14:19 Freq: Status: Active Protocol: Document 05/03/22 13:45 DCW (Rec: 05/03/22 15:48 DCW [id number]) Current Condition History of Current Condition Onset Date 04/24/22? Current Complaints s/p left shoulder arthroscopic r/c debridement /c biceps repair History of Current Condition Pt is a 52 year old male with a long-standing history of bilateral shoulder pain presenting 9 days s/p left shoulder arthroscopic rotator cuff debridement with biceps repair. Per Dr Ortiz post-op protocol, pt currently in phase 1. Pt to continue using sling until two weeks post-op. Pt severely restricted with functional use of his left arm at ths moment, only has gotten out of sling for brief periods while sitting in his chair. Pt notes he lives with his mother, and needs to do most of the work around the house, but has obviously not been able to since surgery. Treatment Goals Patient/Caregiver Goals Improve functional mobility of his left shoulder PT-OP-C Subjective Start: 05/03/22 14:19 Freq: Status: Active Protocol: Document 05/03/22 13:45 DCW (Rec: 05/03/22 14:29 DCW [id number]) OP-PT Subjective Patient Comments Patient Comments It's still pretty tender, but it's a lot better than it was last week. Patient Questionnaires Quick Dash- Work and Sports Modules Quick Dash W&S Score 86.36% Quick Dash Work and Sport Impairment 80 to 99% Impaired (Score 80- 99) OP-PT Pain Assessment Pain Assessment Grid Paper Pain Assessment Grid Completed Yes Location Left Shoulder Intensity 9 Scale Used Numeric (0 - 10) Frequency Constant Pain Aggravating Factors Position,Changing Position PT-OP-F Manual Assessment Start: 05/03/22 14:19 Freq: Status: Active Protocol: Document 05/03/22 13:45 DCW (Rec: 05/03/22 14:37 DCW [id number]) Manual Assessments Joint Mobility Assessment Joint Mobility Assessment Left GH joint mobility severely limited secondary to post-op pain PT-OP-K Range of Motion Start: 05/03/22 14:19 Freq: Status: Active Protocol: Document 05/03/22 13:45 DCW (Rec: 05/03/22 14:37 DCW [id number]) Shoulder Goniometric Range of Motion Shoulder Left Passive Shoulder ROM WFL No Testing Position Sitting Flexion 15 Abduction 20 External Rotation at 0 degrees Abduction 0 Shoulder ROM Limitations Shoulder ROM Limitations Muscle Weakness,Muscle Tone, Pain,Swelling PT-OP-M Strength Start: 05/03/22 14:19 Freq: Status: Active Protocol: Document 05/03/22 13:45 DCW (Rec: 05/03/22 14:37 DCW [id number]) Shoulder Strength Shoulder Manual Muscle Testing Left Flexion 2- Poor- Abduction (C5) 2- Poor- External Rotation 2- Poor- Internal Rotation 2- Poor- PT-OP-T Assessment and Plan Start: 05/03/22 14:19 Freq: Status: Active Protocol: Document 05/03/22 13:45 DCW (Rec: 05/03/22 15:48 DCW [id number]) Physical Therapy Assessment Rehab Potential Rehabilitation Potential Good Evaluation Complexity Number of Personal Factors/Comorbidities 3 or More Number of Body Systems Impaired 1-2 Clinical Presentation at Evaluation Stable Impairments Impairments Activity Tolerance,Functional Activities,Functional Mobility ,Pain,Posture,ROM,Soft Tissue Mobility,Strength Goals Two Impairment Severely limited ROM due to pain and post-op protocol [employer] Treating Unit Operator Goal (LTG) Pt to show increased left shoulder flexion and abduction to at least 120? to exhibit beginning of return to post-op functional mobility and improve ability for him to help with director of recruitment and admissions. LTG Duration 07/04/22 One Impairment Pt does not have an appropriate home exercise program Short Term Goal (STG) Pt to be independent and compliant with an appropriate HEP STG Duration 06/03/22 Assessment Summary Assessment Pt presents with signs and symptoms as expected 9 days s/ p left shoulder arthroscopic r /c debridement /c biceps repair. Pt fairly limited with ROM secondary to pain. Expect pt to display improvement consistent with post-op protocol. Will initially focus on pain control, increasing ROM and strength, and pt education. Start with PROM and isometric strengthening, prior to moving on to more active ROM and gentle weighted strengthening. Physical Therapy Plan Frequency and Duration Frequency of Treatment 2x/Week Plan of Care Start Date 05/03/22 Plan of Care End Date 07/04/22 Therapeutic Interventions Therapeutic Interventions Home Exercise Program,Joint Mobilizations,Manual Therapy, Patient/Caregiver Education, Self-Care/Home Management,Soft Tissue Mobilization,Taping, Therapeutic Activities, Therapeutic Exercises Modalities Cold Pack/Ice Massage,Electric Stimulation,Hot Packs, Ultrasound Next Visit Focus/Plan Next Note Type Treatment Note Next Visit Plan Pendulums, Pulleys, scapular/ GH mobilization, biceps/ triceps strengthening, isometrics
--- NOTE | 2022-05-03 15:51 | PT.OPPOC ---
Physical, Occupational & Speech Therapy At [facility] Current Diagnoses Pain in left shoulder (05/03/22) Stiffness of left shoulder, not elsewhere classified (05/03/22) Impingement syndrome of left shoulder (05/03/22) Encounter for other specified surgical aftercare (05/03/22) Visit Care Team Role Provider Type Oswaldo Pickering MD Family Provider Physician Primary Care Provider Specialty: Internal Medicine Address: [address] [place] [address], [address], [place], [address] Email: [email or web address] David Watkins PA-C Attending Provider Non-Staff Referring Provider Specialty: Medical Address: [address] [place] [address], [address] Phone: Email: Plan Of Care PT-OP-T Assessment and Plan Start: 05/03/22 14:19 Freq: Status: Active Protocol: Document 05/03/22 13:45 DCW (Rec: 05/03/22 15:48 DCW [id number]) Physical Therapy Assessment Rehab Potential Rehabilitation Potential Good Evaluation Complexity Number of Personal Factors/Comorbidities 3 or More Number of Body Systems Impaired 1-2 Clinical Presentation at Evaluation Stable Impairments Impairments Activity Tolerance,Functional Activities,Functional Mobility ,Pain,Posture,ROM,Soft Tissue Mobility,Strength Goals Two Impairment Severely limited ROM due to pain and post-op protocol Detention Goal (LTG) Pt to show increased left shoulder flexion and abduction to at least 120? to exhibit beginning of return to post-op functional mobility and improve ability for him to help with clinical psychologist licensed. LTG Duration 07/04/22 One Impairment Pt does not have an appropriate home exercise program Short Term Goal (STG) Pt to be independent and compliant with an appropriate HEP STG Duration 06/03/22 Assessment Summary Assessment Pt presents with signs and symptoms as expected 9 days s/ p left shoulder arthroscopic r /c debridement /c biceps repair. Pt fairly limited with ROM secondary to pain. Expect pt to display improvement consistent with post-op protocol. Will initially focus on pain control, increasing ROM and strength, and pt education. Start with PROM and isometric strengthening, prior to moving on to more active ROM and gentle weighted strengthening. Physical Therapy Plan Frequency and Duration Frequency of Treatment 2x/Week Plan of Care Start Date 05/03/22 Plan of Care End Date 07/04/22 Therapeutic Interventions Therapeutic Interventions Home Exercise Program,Joint Mobilizations,Manual Therapy, Patient/Caregiver Education, Self-Care/Home Management,Soft Tissue Mobilization,Taping, Therapeutic Activities, Therapeutic Exercises Modalities Cold Pack/Ice Massage,Electric Stimulation,Hot Packs, Ultrasound Next Visit Focus/Plan Next Note Type Treatment Note Next Visit Plan Pendulums, Pulleys, scapular/ GH mobilization, biceps/ triceps strengthening, isometrics Plan of Care Dates Plan of Care Start Date 05/03/22 Plan of Care End Date 07/04/22 Electronically Signed by: Jose Aranda, PT 05/03/22 3202 If you are in agreement with this Plan of Care, please return a signed and dated copy. I have reviewed this Plan of Care and certify that the skilled therapy services above are required to meet the patient?s needs. Physician Signature Date Printed Name and Credentials Clinical Instructor Signature Printed Name and Credentials
--- NOTE | 2022-05-11 16:45 | PT.OTN ---
Current Diagnoses Pain in left shoulder (05/11/22) Stiffness of left shoulder, not elsewhere classified (05/11/22) Impingement syndrome of left shoulder (05/11/22) Encounter for other specified surgical aftercare (05/11/22) Physical Therapy Treatment Note PT-OP-A Visit Information Start: 05/03/22 14:19 Freq: Status: Active Protocol: Document 05/11/22 16:00 DCW (Rec: 05/11/22 16:45 DCW [id number]) Out-Patient Physical Therapy Visit Information Visit Information Visit Type Treatment Note Visit Start Time 16:00 Visit Stop Time 16:45 Total Visit Minutes 45 Visit Number 2 Number of PIT OPERATOR Visits 0 Evaluation Information Evaluation Date 05/03/22 Precautions Precautions Phase I protocol: Sling (0-2 weeks) Scapular and GH Mobilization Pendulums/Cane/Javi Isometrics in all directions Biceps/Triceps exercises Modalities PRN PT-OP-B Current Condition Start: 05/03/22 14:19 Freq: Status: Active Protocol: Document 05/03/22 13:45 DCW (Rec: 05/03/22 15:48 DCW [id number]) Current Condition History of Current Condition Onset Date 04/24/22? Current Complaints s/p left shoulder arthroscopic r/c debridement /c biceps repair History of Current Condition Pt is a 52 year old male with a long-standing history of bilateral shoulder pain presenting 9 days s/p left shoulder arthroscopic rotator cuff debridement with biceps repair. Per Dr Ortiz post-op protocol, pt currently in phase 1. Pt to continue using sling until two weeks post-op. Pt severely restricted with functional use of his left arm at ths moment, only has gotten out of sling for brief periods while sitting in his chair. Pt notes he lives with his mother, and needs to do most of the work around the house, but has obviously not been able to since surgery. Treatment Goals Patient/Caregiver Goals Improve functional mobility of his left shoulder PT-OP-C Subjective Start: 05/03/22 14:19 Freq: Status: Active Protocol: Document 05/11/22 16:00 DCW (Rec: 05/11/22 16:45 DCW [id number]) OP-PT Subjective Patient Comments Patient Comments Pt notes he is still feeling pretty stiff overall, but the pain isn't nearly as bad as it was.. PT-OP-F Manual Assessment Start: 05/03/22 14:19 Freq: Status: Active Protocol: Document 05/03/22 13:45 DCW (Rec: 05/03/22 14:37 DCW [id number]) Manual Assessments Joint Mobility Assessment Joint Mobility Assessment Left GH joint mobility severely limited secondary to post-op pain PT-OP-K Range of Motion Start: 05/03/22 14:19 Freq: Status: Active Protocol: Document 05/03/22 13:45 DCW (Rec: 05/03/22 14:37 DCW [id number]) Shoulder Goniometric Range of Motion Shoulder Left Passive Shoulder ROM WFL No Testing Position Sitting Flexion 15 Abduction 20 External Rotation at 0 degrees Abduction 0 Shoulder ROM Limitations Shoulder ROM Limitations Muscle Weakness,Muscle Tone, Pain,Swelling PT-OP-M Strength Start: 05/03/22 14:19 Freq: Status: Active Protocol: Document 05/03/22 13:45 DCW (Rec: 05/03/22 14:37 DCW [id number]) Shoulder Strength Shoulder Manual Muscle Testing Left Flexion 2- Poor- Abduction (C5) 2- Poor- External Rotation 2- Poor- Internal Rotation 2- Poor- PT-OP-Q Treatments Start: 05/03/22 14:19 Freq: Status: Active Protocol: Document 05/11/22 16:00 DCW (Rec: 05/11/22 16:45 DCW [id number]) Therapeutic Exercises Sitting Exercises ER Sitting Exercise Name PROM shoulder ER /c PVC Comments stopped d/t pain Abduction Sitting Exercise Name PROM shoulder abduction /c PVC Comments stopped d/t pain Pulleys Sitting Exercise Name Javi - GH flexion Side left Standing Exercises Pendulums Standing Exercise Name Pendulums Side left Manual Therapy Treatment Other Other Manual Treatments Therapist-driven PROM of left shoulder - flexion, abduction, ER, circumduction all in relatively pain-free ROM. PT-OP-T Assessment and Plan Start: 05/03/22 14:19 Freq: Status: Active Protocol: Document 05/11/22 16:00 DCW (Rec: 05/11/22 16:45 DCW [id number]) Physical Therapy Assessment Impairments Impairments Activity Tolerance,Functional Activities,Functional Mobility ,Pain,Posture,ROM,Soft Tissue Mobility,Strength Goals Two Impairment Severely limited ROM due to pain and post-op protocol Long-Term Goal (LTG) Pt to show increased left shoulder flexion and abduction to at least 120? to exhibit beginning of return to post-op functional mobility and improve ability for him to help with vein pumper. LTG Duration 07/04/22 One Impairment Pt does not have an appropriate home exercise program Short Term Goal (STG) Pt to be independent and compliant with an appropriate HEP STG Duration 06/03/22 Assessment Summary Assessment Pt showing some improvement overall with PROM in all planes since initial evaluation last week, improved tolerance with movement. Addition of pendulums for HEP, instructed to start to decrease use of sling. Physical Therapy Plan Frequency and Duration Frequency of Treatment 2x/Week Plan of Care Start Date 05/03/22 Plan of Care End Date 07/04/22 Therapeutic Interventions Therapeutic Interventions Home Exercise Program,Joint Mobilizations,Manual Therapy, Patient/Caregiver Education, Self-Care/Home Management,Soft Tissue Mobilization,Taping, Therapeutic Activities, Therapeutic Exercises Modalities Cold Pack/Ice Massage,Electric Stimulation,Hot Packs, Ultrasound Next Visit Focus/Plan Next Note Type Treatment Note Next Visit Plan Pendulums, Pulleys, scapular/ GH mobilization, biceps/ triceps strengthening, isometrics
--- NOTE | 2022-05-16 16:44 | PT.OTN ---
Current Diagnoses Pain in left shoulder (05/16/22) Stiffness of left shoulder, not elsewhere classified (05/16/22) Impingement syndrome of left shoulder (05/16/22) Encounter for other specified surgical aftercare (05/16/22) Physical Therapy Treatment Note PT-OP-A Visit Information Start: 05/03/22 14:19 Freq: Status: Active Protocol: Document 05/16/22 16:00 DCW (Rec: 05/16/22 16:43 DCW [id number]) Out-Patient Physical Therapy Visit Information Visit Information Visit Type Treatment Note Visit Start Time 16:00 Visit Stop Time 16:45 Total Visit Minutes 45 Visit Number 3 Number of GANG LEADER Visits 0 Evaluation Information Evaluation Date 05/03/22 Precautions Precautions Phase I protocol: Sling (0-2 weeks) Scapular and GH Mobilization Pendulums/Cane/Javi Isometrics in all directions Biceps/Triceps exercises Modalities PRN PT-OP-B Current Condition Start: 05/03/22 14:19 Freq: Status: Active Protocol: Document 05/03/22 13:45 DCW (Rec: 05/03/22 15:48 DCW [id number]) Current Condition History of Current Condition Onset Date 04/24/22? Current Complaints s/p left shoulder arthroscopic r/c debridement /c biceps repair History of Current Condition Pt is a 52 year old male with a long-standing history of bilateral shoulder pain presenting 9 days s/p left shoulder arthroscopic rotator cuff debridement with biceps repair. Per Dr Ortiz post-op protocol, pt currently in phase 1. Pt to continue using sling until two weeks post-op. Pt severely restricted with functional use of his left arm at ths moment, only has gotten out of sling for brief periods while sitting in his chair. Pt notes he lives with his mother, and needs to do most of the work around the house, but has obviously not been able to since surgery. Treatment Goals Patient/Caregiver Goals Improve functional mobility of his left shoulder PT-OP-C Subjective Start: 05/03/22 14:19 Freq: Status: Active Protocol: Document 05/16/22 16:00 DCW (Rec: 05/16/22 16:43 DCW [id number]) OP-PT Subjective Patient Comments Patient Comments Pt notes his shoulder continues to feel pretty sore, has been able to spend time at home performing pendulums. Wearing the sling still for comfort when his shoulder hurts more. PT-OP-F Manual Assessment Start: 05/03/22 14:19 Freq: Status: Active Protocol: Document 05/03/22 13:45 DCW (Rec: 05/03/22 14:37 DCW [id number]) Manual Assessments Joint Mobility Assessment Joint Mobility Assessment Left GH joint mobility severely limited secondary to post-op pain PT-OP-K Range of Motion Start: 05/03/22 14:19 Freq: Status: Active Protocol: Document 05/03/22 13:45 DCW (Rec: 05/03/22 14:37 DCW [id number]) Shoulder Goniometric Range of Motion Shoulder Left Passive Shoulder ROM WFL No Testing Position Sitting Flexion 15 Abduction 20 External Rotation at 0 degrees Abduction 0 Shoulder ROM Limitations Shoulder ROM Limitations Muscle Weakness,Muscle Tone, Pain,Swelling PT-OP-M Strength Start: 05/03/22 14:19 Freq: Status: Active Protocol: Document 05/03/22 13:45 DCW (Rec: 05/03/22 14:37 DCW [id number]) Shoulder Strength Shoulder Manual Muscle Testing Left Flexion 2- Poor- Abduction (C5) 2- Poor- External Rotation 2- Poor- Internal Rotation 2- Poor- PT-OP-Q Treatments Start: 05/03/22 14:19 Freq: Status: Active Protocol: Document 05/16/22 16:00 DCW (Rec: 05/16/22 16:43 DCW [id number]) Therapeutic Exercises Sitting Exercises Abduction Sitting Exercise Name PROM shoulder abduction /c PVC Comments standing Pulleys Sitting Exercise Name Javi - GH flexion Side left Standing Exercises Biceps Curls Standing Exercise Name Biceps Curls Side left Resistance 3# PT-OP-T Assessment and Plan Start: 05/03/22 14:19 Freq: Status: Active Protocol: Document 05/16/22 16:00 DCW (Rec: 05/16/22 16:43 DCW [id number]) Physical Therapy Assessment Assessment Summary Assessment Passive ROM increased 0->52? ER, 15-74? flexion, and 20->40 ? abduction. Pt showing good progress so far overall, tolerating PROM much better today than last visit. Continue to work on PROM and attempt addition of isometric. Physical Therapy Plan Frequency and Duration Frequency of Treatment 2x/Week Plan of Care Start Date 05/03/22 Plan of Care End Date 07/04/22 Therapeutic Interventions Therapeutic Interventions Home Exercise Program,Joint Mobilizations,Manual Therapy, Patient/Caregiver Education, Self-Care/Home Management,Soft Tissue Mobilization,Taping, Therapeutic Activities, Therapeutic Exercises Modalities Cold Pack/Ice Massage,Electric Stimulation,Hot Packs, Ultrasound Next Visit Focus/Plan Next Note Type Treatment Note Next Visit Plan Work toward implementation of isometrics
--- NOTE | 2022-05-18 16:44 | PT.OTN ---
Current Diagnoses Pain in left shoulder (05/18/22) Stiffness of left shoulder, not elsewhere classified (05/18/22) Impingement syndrome of left shoulder (05/18/22) Encounter for other specified surgical aftercare (05/18/22) Physical Therapy Treatment Note PT-OP-A Visit Information Start: 05/03/22 14:19 Freq: Status: Active Protocol: Document 05/18/22 16:00 DCW (Rec: 05/18/22 16:43 DCW [id number]) Out-Patient Physical Therapy Visit Information Visit Information Visit Type Treatment Note Visit Start Time 16:00 Visit Stop Time 16:45 Total Visit Minutes 45 Visit Number 4 Number of BLACK POWDER GLAZING OPERATOR Visits 0 Evaluation Information Evaluation Date 05/03/22 Precautions Precautions Phase I protocol: Sling (0-2 weeks) Scapular and GH Mobilization Pendulums/Cane/Javi Isometrics in all directions Biceps/Triceps exercises Modalities PRN PT-OP-B Current Condition Start: 05/03/22 14:19 Freq: Status: Active Protocol: Document 05/03/22 13:45 DCW (Rec: 05/03/22 15:48 DCW [id number]) Current Condition History of Current Condition Onset Date 04/24/22? Current Complaints s/p left shoulder arthroscopic r/c debridement /c biceps repair History of Current Condition Pt is a 52 year old male with a long-standing history of bilateral shoulder pain presenting 9 days s/p left shoulder arthroscopic rotator cuff debridement with biceps repair. Per Dr Ortiz post-op protocol, pt currently in phase 1. Pt to continue using sling until two weeks post-op. Pt severely restricted with functional use of his left arm at ths moment, only has gotten out of sling for brief periods while sitting in his chair. Pt notes he lives with his mother, and needs to do most of the work around the house, but has obviously not been able to since surgery. Treatment Goals Patient/Caregiver Goals Improve functional mobility of his left shoulder PT-OP-C Subjective Start: 05/03/22 14:19 Freq: Status: Active Protocol: Document 05/18/22 16:00 DCW (Rec: 05/18/22 16:44 DCW [id number]) OP-PT Subjective Patient Comments Patient Comments Pt reports he feels like it has been hurting less recently . PT-OP-F Manual Assessment Start: 05/03/22 14:19 Freq: Status: Active Protocol: Document 05/03/22 13:45 DCW (Rec: 05/03/22 14:37 DCW [id number]) Manual Assessments Joint Mobility Assessment Joint Mobility Assessment Left GH joint mobility severely limited secondary to post-op pain PT-OP-K Range of Motion Start: 05/03/22 14:19 Freq: Status: Active Protocol: Document 05/03/22 13:45 DCW (Rec: 05/03/22 14:37 DCW [id number]) Shoulder Goniometric Range of Motion Shoulder Left Passive Shoulder ROM WFL No Testing Position Sitting Flexion 15 Abduction 20 External Rotation at 0 degrees Abduction 0 Shoulder ROM Limitations Shoulder ROM Limitations Muscle Weakness,Muscle Tone, Pain,Swelling PT-OP-M Strength Start: 05/03/22 14:19 Freq: Status: Active Protocol: Document 05/03/22 13:45 DCW (Rec: 05/03/22 14:37 DCW [id number]) Shoulder Strength Shoulder Manual Muscle Testing Left Flexion 2- Poor- Abduction (C5) 2- Poor- External Rotation 2- Poor- Internal Rotation 2- Poor- PT-OP-Q Treatments Start: 05/03/22 14:19 Freq: Status: Active Protocol: Document 05/18/22 16:00 DCW (Rec: 05/18/22 16:43 DCW [id number]) Therapeutic Exercises Sitting Exercises Abduction Sitting Exercise Name PROM shoulder abduction /c PVC Comments standing Pulleys Sitting Exercise Name Javi - GH flexion Side left Standing Exercises Abduction Standing Exercise Name Isometric shoulder abduction Side left Equipment Used Ball on wall Reps/Minutes 5 hold x10 Flexion Standing Exercise Name Isometric shoulder flexion Side left Equipment Used Ball on wall Reps/Minutes 5 hold x10 Manual Therapy Treatment Other Other Manual Treatments Therapist-driven PROM of left shoulder - flexion, abduction, ER, circumduction all in relatively pain-free ROM. PT-OP-T Assessment and Plan Start: 05/03/22 14:19 Freq: Status: Active Protocol: Document 05/18/22 16:00 DCW (Rec: 05/18/22 16:43 DCW [id number]) Physical Therapy Assessment Impairments Impairments Activity Tolerance,Functional Activities,Functional Mobility ,Pain,Posture,ROM,Soft Tissue Mobility,Strength Goals Two Impairment Severely limited ROM due to pain and post-op protocol Geotechnicial Properties Technician Goal (LTG) Pt to show increased left shoulder flexion and abduction to at least 120? to exhibit beginning of return to post-op functional mobility and improve ability for him to help with jailer/training officer. LTG Duration 07/04/22 One Impairment Pt does not have an appropriate home exercise program Short Term Goal (STG) Pt to be independent and compliant with an appropriate HEP STG Duration 06/03/22 Assessment Summary Assessment PROM significantly improved today, pt tolerated addition of isometric strengthening well without increased pain. Physical Therapy Plan Frequency and Duration Frequency of Treatment 2x/Week Plan of Care Start Date 05/03/22 Plan of Care End Date 07/04/22 Therapeutic Interventions Therapeutic Interventions Home Exercise Program,Joint Mobilizations,Manual Therapy, Patient/Caregiver Education, Self-Care/Home Management,Soft Tissue Mobilization,Taping, Therapeutic Activities, Therapeutic Exercises Modalities Cold Pack/Ice Massage,Electric Stimulation,Hot Packs, Ultrasound Next Visit Focus/Plan Next Note Type Treatment Note Next Visit Plan Increasing PROM/AROM
--- NOTE | 2022-05-23 16:48 | PT.OTN ---
Current Diagnoses Pain in left shoulder (05/23/22) Stiffness of left shoulder, not elsewhere classified (05/23/22) Impingement syndrome of left shoulder (05/23/22) Encounter for other specified surgical aftercare (05/23/22) Physical Therapy Treatment Note PT-OP-A Visit Information Start: 05/03/22 14:19 Freq: Status: Active Protocol: Document 05/23/22 16:00 DCW (Rec: 05/23/22 16:47 DCW [id number]) Out-Patient Physical Therapy Visit Information Visit Information Visit Type Treatment Note Visit Start Time 16:00 Visit Stop Time 16:45 Total Visit Minutes 45 Visit Number 5 Number of POWER SYSTEMS ENGINEER Visits 0 Evaluation Information Evaluation Date 05/03/22 Precautions Precautions Phase I protocol: Sling (0-2 weeks) Scapular and GH Mobilization Pendulums/Cane/Javi Isometrics in all directions Biceps/Triceps exercises Modalities PRN PT-OP-B Current Condition Start: 05/03/22 14:19 Freq: Status: Active Protocol: Document 05/03/22 13:45 DCW (Rec: 05/03/22 15:48 DCW [id number]) Current Condition History of Current Condition Onset Date 04/24/22? Current Complaints s/p left shoulder arthroscopic r/c debridement /c biceps repair History of Current Condition Pt is a 52 year old male with a long-standing history of bilateral shoulder pain presenting 9 days s/p left shoulder arthroscopic rotator cuff debridement with biceps repair. Per Dr Ortiz post-op protocol, pt currently in phase 1. Pt to continue using sling until two weeks post-op. Pt severely restricted with functional use of his left arm at ths moment, only has gotten out of sling for brief periods while sitting in his chair. Pt notes he lives with his mother, and needs to do most of the work around the house, but has obviously not been able to since surgery. Treatment Goals Patient/Caregiver Goals Improve functional mobility of his left shoulder PT-OP-C Subjective Start: 05/03/22 14:19 Freq: Status: Active Protocol: Document 05/23/22 16:00 DCW (Rec: 05/23/22 16:47 DCW [id number]) OP-PT Subjective Patient Comments Patient Comments Pt reports his whole arm is bothering him today. PT-OP-F Manual Assessment Start: 05/03/22 14:19 Freq: Status: Active Protocol: Document 05/03/22 13:45 DCW (Rec: 05/03/22 14:37 DCW [id number]) Manual Assessments Joint Mobility Assessment Joint Mobility Assessment Left GH joint mobility severely limited secondary to post-op pain PT-OP-K Range of Motion Start: 05/03/22 14:19 Freq: Status: Active Protocol: Document 05/03/22 13:45 DCW (Rec: 05/03/22 14:37 DCW [id number]) Shoulder Goniometric Range of Motion Shoulder Left Passive Shoulder ROM WFL No Testing Position Sitting Flexion 15 Abduction 20 External Rotation at 0 degrees Abduction 0 Shoulder ROM Limitations Shoulder ROM Limitations Muscle Weakness,Muscle Tone, Pain,Swelling PT-OP-M Strength Start: 05/03/22 14:19 Freq: Status: Active Protocol: Document 05/03/22 13:45 DCW (Rec: 05/03/22 14:37 DCW [id number]) Shoulder Strength Shoulder Manual Muscle Testing Left Flexion 2- Poor- Abduction (C5) 2- Poor- External Rotation 2- Poor- Internal Rotation 2- Poor- PT-OP-Q Treatments Start: 05/03/22 14:19 Freq: Status: Active Protocol: Document 05/23/22 16:00 DCW (Rec: 05/23/22 16:47 DCW [id number]) Cardio Equipment Upper Body Ergometer (UBE) Duration (Minutes) 5 Seat Position 15 Height 2 Therapeutic Exercises Sitting Exercises Abduction Sitting Exercise Name PROM shoulder abduction, ER /c PVC Comments standing Pulleys Sitting Exercise Name Javi - GH flexion Side left Standing Exercises Pronation/Supination Standing Exercise Name Forearm P/S Side left Resistance 3# Abduction Standing Exercise Name Isometric shoulder abduction Side left Equipment Used Ball on wall Reps/Minutes 5 hold x10 Flexion Standing Exercise Name Isometric shoulder flexion Side left Equipment Used Ball on wall Reps/Minutes 5 hold x10 Biceps Curls Standing Exercise Name Biceps Curls Side left Resistance 5# Manual Therapy Treatment Other Other Manual Treatments Therapist-driven PROM of left shoulder - flexion, abduction, ER, circumduction all in relatively pain-free ROM. PT-OP-T Assessment and Plan Start: 05/03/22 14:19 Freq: Status: Active Protocol: Document 05/23/22 16:00 DCW (Rec: 05/23/22 16:47 DCW [id number]) Physical Therapy Assessment Impairments Impairments Activity Tolerance,Functional Activities,Functional Mobility ,Pain,Posture,ROM,Soft Tissue Mobility,Strength Goals Two Impairment Severely limited ROM due to pain and post-op protocol Detention Goal (LTG) Pt to show increased left shoulder flexion and abduction to at least 120? to exhibit beginning of return to post-op functional mobility and improve ability for him to help with patient ambassador. LTG Duration 07/04/22 One Impairment Pt does not have an appropriate home exercise program Short Term Goal (STG) Pt to be independent and compliant with an appropriate HEP STG Duration 06/03/22 Assessment Summary Assessment Pt approaching WNL with PROM, expect to add more active/UE strengthening exercises next visit. Physical Therapy Plan Frequency and Duration Frequency of Treatment 2x/Week Plan of Care Start Date 05/03/22 Plan of Care End Date 07/04/22 Therapeutic Interventions Therapeutic Interventions Home Exercise Program,Joint Mobilizations,Manual Therapy, Patient/Caregiver Education, Self-Care/Home Management,Soft Tissue Mobilization,Taping, Therapeutic Activities, Therapeutic Exercises Modalities Cold Pack/Ice Massage,Electric Stimulation,Hot Packs, Ultrasound Next Visit Focus/Plan Next Note Type Treatment Note Next Visit Plan Increasing AROM, addition of gentle strengthening and stretching
--- NOTE | 2022-05-25 16:41 | PT.OTN ---
Current Diagnoses Pain in left shoulder (05/25/22) Stiffness of left shoulder, not elsewhere classified (05/25/22) Impingement syndrome of left shoulder (05/25/22) Encounter for other specified surgical aftercare (05/25/22) Physical Therapy Treatment Note PT-OP-A Visit Information Start: 05/03/22 14:19 Freq: Status: Active Protocol: Document 05/25/22 16:00 DCW (Rec: 05/25/22 16:41 DCW [id number]) Out-Patient Physical Therapy Visit Information Visit Information Visit Type Treatment Note Visit Start Time 16:00 Visit Stop Time 16:45 Total Visit Minutes 45 Visit Number 6 Number of DATA REPORT ANALYST Visits 0 Evaluation Information Evaluation Date 05/03/22 Precautions Precautions Phase I protocol: Sling (0-2 weeks) Scapular and GH Mobilization Pendulums/Cane/Javi Isometrics in all directions Biceps/Triceps exercises Modalities PRN PT-OP-B Current Condition Start: 05/03/22 14:19 Freq: Status: Active Protocol: Document 05/03/22 13:45 DCW (Rec: 05/03/22 15:48 DCW [id number]) Current Condition History of Current Condition Onset Date 04/24/22? Current Complaints s/p left shoulder arthroscopic r/c debridement /c biceps repair History of Current Condition Pt is a 52 year old male with a long-standing history of bilateral shoulder pain presenting 9 days s/p left shoulder arthroscopic rotator cuff debridement with biceps repair. Per Dr Ortiz post-op protocol, pt currently in phase 1. Pt to continue using sling until two weeks post-op. Pt severely restricted with functional use of his left arm at ths moment, only has gotten out of sling for brief periods while sitting in his chair. Pt notes he lives with his mother, and needs to do most of the work around the house, but has obviously not been able to since surgery. Treatment Goals Patient/Caregiver Goals Improve functional mobility of his left shoulder PT-OP-C Subjective Start: 05/03/22 14:19 Freq: Status: Active Protocol: Document 05/25/22 16:00 DCW (Rec: 05/25/22 16:41 DCW [id number]) OP-PT Subjective Patient Comments Patient Comments Pt reporting his arm has been quite sore since his last visit, mostly into his left biceps and anterior shoulder PT-OP-F Manual Assessment Start: 05/03/22 14:19 Freq: Status: Active Protocol: Document 05/03/22 13:45 DCW (Rec: 05/03/22 14:37 DCW [id number]) Manual Assessments Joint Mobility Assessment Joint Mobility Assessment Left GH joint mobility severely limited secondary to post-op pain PT-OP-K Range of Motion Start: 05/03/22 14:19 Freq: Status: Active Protocol: Document 05/03/22 13:45 DCW (Rec: 05/03/22 14:37 DCW [id number]) Shoulder Goniometric Range of Motion Shoulder Left Passive Shoulder ROM WFL No Testing Position Sitting Flexion 15 Abduction 20 External Rotation at 0 degrees Abduction 0 Shoulder ROM Limitations Shoulder ROM Limitations Muscle Weakness,Muscle Tone, Pain,Swelling PT-OP-M Strength Start: 05/03/22 14:19 Freq: Status: Active Protocol: Document 05/03/22 13:45 DCW (Rec: 05/03/22 14:37 DCW [id number]) Shoulder Strength Shoulder Manual Muscle Testing Left Flexion 2- Poor- Abduction (C5) 2- Poor- External Rotation 2- Poor- Internal Rotation 2- Poor- PT-OP-Q Treatments Start: 05/03/22 14:19 Freq: Status: Active Protocol: Document 05/25/22 16:00 DCW (Rec: 05/25/22 16:41 DCW [id number]) Therapeutic Exercises Sitting Exercises Abduction Sitting Exercise Name PROM shoulder abduction, ER /c PVC Comments standing Pulleys Sitting Exercise Name Javi - GH flexion Side left Manual Therapy Treatment Other Other Manual Treatments Therapist-driven PROM of left shoulder - flexion, abduction, ER, circumduction all in relatively pain-free ROM. PT-OP-T Assessment and Plan Start: 05/03/22 14:19 Freq: Status: Active Protocol: Document 05/25/22 16:00 DCW (Rec: 05/25/22 16:41 DCW [id number]) Physical Therapy Assessment Impairments Impairments Activity Tolerance,Functional Activities,Functional Mobility ,Pain,Posture,ROM,Soft Tissue Mobility,Strength Goals Two Impairment Severely limited ROM due to pain and post-op protocol Vocational Education Teacher Goal (LTG) Pt to show increased left shoulder flexion and abduction to at least 120? to exhibit beginning of return to post-op functional mobility and improve ability for him to help with top collar maker. LTG Duration 07/04/22 One Impairment Pt does not have an appropriate home exercise program Short Term Goal (STG) Pt to be independent and compliant with an appropriate HEP STG Duration 06/03/22 Assessment Summary Assessment Delayed planned increased activity/AROM exercises that was expected this visit, pt very sore following slight increase in resistance in curls on Sunday, return to focusing more on PROM and gentle mobility. Physical Therapy Plan Frequency and Duration Frequency of Treatment 2x/Week Plan of Care Start Date 05/03/22 Plan of Care End Date 07/04/22 Therapeutic Interventions Therapeutic Interventions Home Exercise Program,Joint Mobilizations,Manual Therapy, Patient/Caregiver Education, Self-Care/Home Management,Soft Tissue Mobilization,Taping, Therapeutic Activities, Therapeutic Exercises Modalities Cold Pack/Ice Massage,Electric Stimulation,Hot Packs, Ultrasound Next Visit Focus/Plan Next Note Type Treatment Note Next Visit Plan Increasing AROM, addition of gentle strengthening and stretching
--- NOTE | 2022-05-29 12:41 | PT.OTN ---
Current Diagnoses Pain in left shoulder (05/29/22) Stiffness of left shoulder, not elsewhere classified (05/29/22) Impingement syndrome of left shoulder (05/29/22) Encounter for other specified surgical aftercare (05/29/22) Physical Therapy Treatment Note PT-OP-A Visit Information Start: 05/03/22 14:19 Freq: Status: Active Protocol: Document 05/29/22 12:00 DCW (Rec: 05/29/22 12:40 DCW [id number]) Out-Patient Physical Therapy Visit Information Visit Information Visit Type Treatment Note Visit Start Time 12:00 Visit Stop Time 12:45 Total Visit Minutes 45 Visit Number 7 Number of PRINCIPAL SOFTWARE ENGINEER Visits 0 Evaluation Information Evaluation Date 05/03/22 Precautions Precautions Phase I protocol: Sling (0-2 weeks) Scapular and GH Mobilization Pendulums/Cane/Javi Isometrics in all directions Biceps/Triceps exercises Modalities PRN PT-OP-B Current Condition Start: 05/03/22 14:19 Freq: Status: Active Protocol: Document 05/03/22 13:45 DCW (Rec: 05/03/22 15:48 DCW [id number]) Current Condition History of Current Condition Onset Date 04/24/22? Current Complaints s/p left shoulder arthroscopic r/c debridement /c biceps repair History of Current Condition Pt is a 52 year old male with a long-standing history of bilateral shoulder pain presenting 9 days s/p left shoulder arthroscopic rotator cuff debridement with biceps repair. Per Dr Ortiz post-op protocol, pt currently in phase 1. Pt to continue using sling until two weeks post-op. Pt severely restricted with functional use of his left arm at ths moment, only has gotten out of sling for brief periods while sitting in his chair. Pt notes he lives with his mother, and needs to do most of the work around the house, but has obviously not been able to since surgery. Treatment Goals Patient/Caregiver Goals Improve functional mobility of his left shoulder PT-OP-C Subjective Start: 05/03/22 14:19 Freq: Status: Active Protocol: Document 05/29/22 12:00 DCW (Rec: 05/29/22 12:40 DCW [id number]) OP-PT Subjective Patient Comments Patient Comments Pt reports his shoulder is much better than last visit, but not quite back to where it was earlier last week. PT-OP-F Manual Assessment Start: 05/03/22 14:19 Freq: Status: Active Protocol: Document 05/03/22 13:45 DCW (Rec: 05/03/22 14:37 DCW [id number]) Manual Assessments Joint Mobility Assessment Joint Mobility Assessment Left GH joint mobility severely limited secondary to post-op pain PT-OP-K Range of Motion Start: 05/03/22 14:19 Freq: Status: Active Protocol: Document 05/03/22 13:45 DCW (Rec: 05/03/22 14:37 DCW [id number]) Shoulder Goniometric Range of Motion Shoulder Left Passive Shoulder ROM WFL No Testing Position Sitting Flexion 15 Abduction 20 External Rotation at 0 degrees Abduction 0 Shoulder ROM Limitations Shoulder ROM Limitations Muscle Weakness,Muscle Tone, Pain,Swelling PT-OP-M Strength Start: 05/03/22 14:19 Freq: Status: Active Protocol: Document 05/03/22 13:45 DCW (Rec: 05/03/22 14:37 DCW [id number]) Shoulder Strength Shoulder Manual Muscle Testing Left Flexion 2- Poor- Abduction (C5) 2- Poor- External Rotation 2- Poor- Internal Rotation 2- Poor- PT-OP-Q Treatments Start: 05/03/22 14:19 Freq: Status: Active Protocol: Document 05/29/22 12:00 DCW (Rec: 05/29/22 12:40 DCW [id number]) Therapeutic Exercises Sitting Exercises Abduction Sitting Exercise Name PROM shoulder abduction, ER /c PVC Comments standing Pulleys Sitting Exercise Name Javi - GH flexion Side left Standing Exercises Biceps Curls Standing Exercise Name Biceps Curls Side left Resistance 2# Manual Therapy Treatment Other Other Manual Treatments Therapist-driven PROM of left shoulder - flexion, abduction, ER, horizontal adduction, circumduction all in relatively pain-free ROM. PT-OP-T Assessment and Plan Start: 05/03/22 14:19 Freq: Status: Active Protocol: Document 05/29/22 12:00 DCW (Rec: 05/29/22 12:40 DCW [id number]) Physical Therapy Assessment Impairments Impairments Activity Tolerance,Functional Activities,Functional Mobility ,Pain,Posture,ROM,Soft Tissue Mobility,Strength Goals Two Impairment Severely limited ROM due to pain and post-op protocol Nursing Home Goal (LTG) Pt to show increased left shoulder flexion and abduction to at least 120? 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 LTG Duration 07/04/22 One Impairment Pt does not have an appropriate home exercise program Short Term Goal (STG) Pt to be independent and compliant with an appropriate HEP STG Duration 06/03/22 Assessment Summary Assessment Pt doing much better today vs later last week. Took it easy once again today, if pt continues to do better, reattempt to add in active exercise and strengthening as tolerated. Physical Therapy Plan Frequency and Duration Frequency of Treatment 2x/Week Plan of Care Start Date 05/03/22 Plan of Care End Date 07/04/22 Therapeutic Interventions Therapeutic Interventions Home Exercise Program,Joint Mobilizations,Manual Therapy, Patient/Caregiver Education, Self-Care/Home Management,Soft Tissue Mobilization,Taping, Therapeutic Activities, Therapeutic Exercises Modalities Cold Pack/Ice Massage,Electric Stimulation,Hot Packs, Ultrasound Next Visit Focus/Plan Next Note Type Treatment Note Next Visit Plan Increasing AROM, addition of gentle strengthening and stretching
--- NOTE | 2022-06-13 15:59 | PT.OTN ---
Current Diagnoses Pain in left shoulder (06/13/22) Stiffness of left shoulder, not elsewhere classified (06/13/22) Impingement syndrome of left shoulder (06/13/22) Encounter for other specified surgical aftercare (06/13/22) Physical Therapy Treatment Note PT-OP-A Visit Information Start: 05/03/22 14:19 Freq: Status: Active Protocol: Document 06/13/22 15:15 DCW (Rec: 06/13/22 15:59 DCW [id number]) Out-Patient Physical Therapy Visit Information Visit Information Visit Type Treatment Note Visit Start Time 15:15 Visit Stop Time 16:00 Total Visit Minutes 45 Visit Number 8 Number of BARREL ASSEMBLY INSPECTOR Visits 0 Evaluation Information Evaluation Date 05/03/22 Precautions Precautions Phase I protocol: Sling (0-2 weeks) Scapular and GH Mobilization Pendulums/Cane/Javi Isometrics in all directions Biceps/Triceps exercises Modalities PRN PT-OP-B Current Condition Start: 05/03/22 14:19 Freq: Status: Active Protocol: Document 05/03/22 13:45 DCW (Rec: 05/03/22 15:48 DCW [id number]) Current Condition History of Current Condition Onset Date 04/24/22? Current Complaints s/p left shoulder arthroscopic r/c debridement /c biceps repair History of Current Condition Pt is a 52 year old male with a long-standing history of bilateral shoulder pain presenting 9 days s/p left shoulder arthroscopic rotator cuff debridement with biceps repair. Per Dr Ortiz post-op protocol, pt currently in phase 1. Pt to continue using sling until two weeks post-op. Pt severely restricted with functional use of his left arm at ths moment, only has gotten out of sling for brief periods while sitting in his chair. Pt notes he lives with his mother, and needs to do most of the work around the house, but has obviously not been able to since surgery. Treatment Goals Patient/Caregiver Goals Improve functional mobility of his left shoulder PT-OP-C Subjective Start: 05/03/22 14:19 Freq: Status: Active Protocol: Document 06/13/22 15:15 DCW (Rec: 06/13/22 15:59 DCW [id number]) OP-PT Subjective Patient Comments Patient Comments Admits his shoulder is very very painful, notes he is pretty worried about it. PT-OP-F Manual Assessment Start: 05/03/22 14:19 Freq: Status: Active Protocol: Document 05/03/22 13:45 DCW (Rec: 05/03/22 14:37 DCW [id number]) Manual Assessments Joint Mobility Assessment Joint Mobility Assessment Left GH joint mobility severely limited secondary to post-op pain PT-OP-K Range of Motion Start: 05/03/22 14:19 Freq: Status: Active Protocol: Document 05/03/22 13:45 DCW (Rec: 05/03/22 14:37 DCW [id number]) Shoulder Goniometric Range of Motion Shoulder Left Passive Shoulder ROM WFL No Testing Position Sitting Flexion 15 Abduction 20 External Rotation at 0 degrees Abduction 0 Shoulder ROM Limitations Shoulder ROM Limitations Muscle Weakness,Muscle Tone, Pain,Swelling PT-OP-M Strength Start: 05/03/22 14:19 Freq: Status: Active Protocol: Document 05/03/22 13:45 DCW (Rec: 05/03/22 14:37 DCW [id number]) Shoulder Strength Shoulder Manual Muscle Testing Left Flexion 2- Poor- Abduction (C5) 2- Poor- External Rotation 2- Poor- Internal Rotation 2- Poor- PT-OP-Q Treatments Start: 05/03/22 14:19 Freq: Status: Active Protocol: Document 06/13/22 15:15 DCW (Rec: 06/13/22 15:59 DCW [id number]) Cardio Equipment Upper Body Ergometer (UBE) Duration (Minutes) 5 Seat Position 15 Height 2 Therapeutic Exercises Sitting Exercises ER Sitting Exercise Name ER Side bilateral Resistance Lv 1 Pulleys Sitting Exercise Name Javi - GH flexion Side left Standing Exercises Pronation/Supination Standing Exercise Name Forearm P/S Side left Resistance 3# Biceps Curls Standing Exercise Name Biceps Curls Side left Resistance 2# Manual Therapy Treatment Other Other Manual Treatments Therapist-driven PROM of left shoulder - flexion, abduction, ER, horizontal adduction, circumduction all in relatively pain-free ROM. PT-OP-T Assessment and Plan Start: 05/03/22 14:19 Freq: Status: Active Protocol: Document 06/13/22 15:15 DCW (Rec: 06/13/22 15:59 DCW [id number]) Physical Therapy Assessment Impairments Impairments Activity Tolerance,Functional Activities,Functional Mobility ,Pain,Posture,ROM,Soft Tissue Mobility,Strength Goals Two Impairment Severely limited ROM due to pain and post-op protocol Screen Tacker Goal (LTG) Pt to show increased left shoulder flexion and abduction to at least 120? 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 LTG Duration 07/04/22 One Impairment Pt does not have an appropriate home exercise program Short Term Goal (STG) Pt to be independent and compliant with an appropriate HEP STG Duration 06/03/22 Assessment Summary Assessment Pt continues to be falling behind post-op protocol, limited with ROM and unable to do much strengthening due to pain. Pt unsure when next follow-up with surgeon is. Physical Therapy Plan Frequency and Duration Frequency of Treatment 2x/Week Plan of Care Start Date 05/03/22 Plan of Care End Date 07/04/22 Therapeutic Interventions Therapeutic Interventions Home Exercise Program,Joint Mobilizations,Manual Therapy, Patient/Caregiver Education, Self-Care/Home Management,Soft Tissue Mobilization,Taping, Therapeutic Activities, Therapeutic Exercises Modalities Cold Pack/Ice Massage,Electric Stimulation,Hot Packs, Ultrasound Next Visit Focus/Plan Next Note Type Treatment Note Next Visit Plan Increasing AROM, addition of gentle strengthening and stretching
--- NOTE | 2022-06-16 14:27 | PT.OTN ---
Current Diagnoses Pain in left shoulder (06/16/22) Stiffness of left shoulder, not elsewhere classified (06/16/22) Impingement syndrome of left shoulder (06/16/22) Encounter for other specified surgical aftercare (06/16/22) Physical Therapy Treatment Note PT-OP-A Visit Information Start: 05/03/22 14:19 Freq: Status: Active Protocol: Document 06/16/22 13:47 DCW (Rec: 06/16/22 14:27 DCW [id number]) Out-Patient Physical Therapy Visit Information Visit Information Visit Type Treatment Note Visit Start Time 13:47 Visit Stop Time 14:17 Total Visit Minutes 30 Visit Number 9 Number of PLASTIC OUTFITTER Visits 0 Evaluation Information Evaluation Date 05/03/22 Precautions Precautions Phase I protocol: Sling (0-2 weeks) Scapular and GH Mobilization Pendulums/Cane/Javi Isometrics in all directions Biceps/Triceps exercises Modalities PRN PT-OP-B Current Condition Start: 05/03/22 14:19 Freq: Status: Active Protocol: Document 05/03/22 13:45 DCW (Rec: 05/03/22 15:48 DCW [id number]) Current Condition History of Current Condition Onset Date 04/24/22? Current Complaints s/p left shoulder arthroscopic r/c debridement /c biceps repair History of Current Condition Pt is a 52 year old male with a long-standing history of bilateral shoulder pain presenting 9 days s/p left shoulder arthroscopic rotator cuff debridement with biceps repair. Per Dr Ortiz post-op protocol, pt currently in phase 1. Pt to continue using sling until two weeks post-op. Pt severely restricted with functional use of his left arm at ths moment, only has gotten out of sling for brief periods while sitting in his chair. Pt notes he lives with his mother, and needs to do most of the work around the house, but has obviously not been able to since surgery. Treatment Goals Patient/Caregiver Goals Improve functional mobility of his left shoulder PT-OP-C Subjective Start: 05/03/22 14:19 Freq: Status: Active Protocol: Document 06/16/22 13:47 DCW (Rec: 06/16/22 14:27 DCW [id number]) OP-PT Subjective Patient Comments Patient Comments Pt reports he is still having some fairly severe general pain. I don't think it is from anything we did here, it' s just sore. PT-OP-F Manual Assessment Start: 05/03/22 14:19 Freq: Status: Active Protocol: Document 05/03/22 13:45 DCW (Rec: 05/03/22 14:37 DCW [id number]) Manual Assessments Joint Mobility Assessment Joint Mobility Assessment Left GH joint mobility severely limited secondary to post-op pain PT-OP-K Range of Motion Start: 05/03/22 14:19 Freq: Status: Active Protocol: Document 05/03/22 13:45 DCW (Rec: 05/03/22 14:37 DCW [id number]) Shoulder Goniometric Range of Motion Shoulder Left Passive Shoulder ROM WFL No Testing Position Sitting Flexion 15 Abduction 20 External Rotation at 0 degrees Abduction 0 Shoulder ROM Limitations Shoulder ROM Limitations Muscle Weakness,Muscle Tone, Pain,Swelling PT-OP-M Strength Start: 05/03/22 14:19 Freq: Status: Active Protocol: Document 05/03/22 13:45 DCW (Rec: 05/03/22 14:37 DCW [id number]) Shoulder Strength Shoulder Manual Muscle Testing Left Flexion 2- Poor- Abduction (C5) 2- Poor- External Rotation 2- Poor- Internal Rotation 2- Poor- PT-OP-Q Treatments Start: 05/03/22 14:19 Freq: Status: Active Protocol: Document 06/16/22 13:47 DCW (Rec: 06/16/22 14:27 DCW [id number]) Cardio Equipment Upper Body Ergometer (UBE) Duration (Minutes) 5 Seat Position 15 Height 2 Therapeutic Exercises Sitting Exercises Pulleys Sitting Exercise Name Javi - GH flexion Side left Manual Therapy Treatment Other Other Manual Treatments Therapist-driven PROM of left shoulder - flexion, abduction, ER, horizontal adduction, circumduction all in relatively pain-free ROM. PT-OP-T Assessment and Plan Start: 05/03/22 14:19 Freq: Status: Active Protocol: Document 06/16/22 13:47 DCW (Rec: 06/16/22 14:27 DCW [id number]) Physical Therapy Assessment Impairments Impairments Activity Tolerance,Functional Activities,Functional Mobility ,Pain,Posture,ROM,Soft Tissue Mobility,Strength Goals Two Impairment Severely limited ROM due to pain and post-op protocol Chief Green Officer Goal (LTG) Pt to show increased left shoulder flexion and abduction to at least 120? 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 LTG Duration 07/04/22 One Impairment Pt does not have an appropriate home exercise program Short Term Goal (STG) Pt to be independent and compliant with an appropriate HEP STG Duration 06/03/22 Assessment Summary Assessment Pt still very sore with almost all activities, not tolerating any increase in activity or resistance. Additionally, due to insurance limitations, therapist and patient agree to decrease total amount of time during session to decrease units charged in order to lengthen time available for therapy. Physical Therapy Plan Frequency and Duration Frequency of Treatment 2x/Week Plan of Care Start Date 05/03/22 Plan of Care End Date 07/04/22 Therapeutic Interventions Therapeutic Interventions Home Exercise Program,Joint Mobilizations,Manual Therapy, Patient/Caregiver Education, Self-Care/Home Management,Soft Tissue Mobilization,Taping, Therapeutic Activities, Therapeutic Exercises Modalities Cold Pack/Ice Massage,Electric Stimulation,Hot Packs, Ultrasound Next Visit Focus/Plan Next Note Type Treatment Note Next Visit Plan Increasing AROM, addition of gentle strengthening and stretching
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
--- NOTE | 2022-06-23 14:39 | PT.OTN ---
Current Diagnoses Pain in left shoulder (06/23/22) Stiffness of left shoulder, not elsewhere classified (06/23/22) Impingement syndrome of left shoulder (06/23/22) Encounter for other specified surgical aftercare (06/23/22) Physical Therapy Treatment Note PT-OP-A Visit Information Start: 05/03/22 14:19 Freq: Status: Active Protocol: Document 06/23/22 13:45 NBM (Rec: 06/23/22 14:39 NBM [id number]) Out-Patient Physical Therapy Visit Information Visit Information Visit Type Treatment Note Visit Start Time 13:50 Visit Stop Time 15:27 Total Visit Minutes 37 Visit Number 11 Number of BOOKBINDER CHIEF Visits 2 PT-OP-B Current Condition Start: 05/03/22 14:19 Freq: Status: Active Protocol: Document 05/03/22 13:45 DCW (Rec: 05/03/22 15:48 DCW [id number]) Current Condition History of Current Condition Onset Date 04/24/22? Current Complaints s/p left shoulder arthroscopic r/c debridement /c biceps repair History of Current Condition Pt is a 52 year old male with a long-standing history of bilateral shoulder pain presenting 9 days s/p left shoulder arthroscopic rotator cuff debridement with biceps repair. Per Dr Ortiz post-op protocol, pt currently in phase 1. Pt to continue using sling until two weeks post-op. Pt severely restricted with functional use of his left arm at ths moment, only has gotten out of sling for brief periods while sitting in his chair. Pt notes he lives with his mother, and needs to do most of the work around the house, but has obviously not been able to since surgery. Treatment Goals Patient/Caregiver Goals Improve functional mobility of his left shoulder PT-OP-C Subjective Start: 05/03/22 14:19 Freq: Status: Active Protocol: Document 06/23/22 13:45 NBM (Rec: 06/23/22 14:39 NBM [id number]) OP-PT Subjective Patient Comments Patient Comments Pt states his L shoulder is feeling sore today, but not from anything we did at last treatment. He doesn't notice icing to help but does figure it's probably reducing inflammation. He reports diabetes is well-controlled. PT-OP-F Manual Assessment Start: 05/03/22 14:19 Freq: Status: Active Protocol: Document 05/03/22 13:45 DCW (Rec: 05/03/22 14:37 DCW [id number]) Manual Assessments Joint Mobility Assessment Joint Mobility Assessment Left GH joint mobility severely limited secondary to post-op pain PT-OP-K Range of Motion Start: 05/03/22 14:19 Freq: Status: Active Protocol: Document 05/03/22 13:45 DCW (Rec: 05/03/22 14:37 DCW [id number]) Shoulder Goniometric Range of Motion Shoulder Left Passive Shoulder ROM WFL No Testing Position Sitting Flexion 15 Abduction 20 External Rotation at 0 degrees Abduction 0 Shoulder ROM Limitations Shoulder ROM Limitations Muscle Weakness,Muscle Tone, Pain,Swelling PT-OP-M Strength Start: 05/03/22 14:19 Freq: Status: Active Protocol: Document 05/03/22 13:45 DCW (Rec: 05/03/22 14:37 DCW [id number]) Shoulder Strength Shoulder Manual Muscle Testing Left Flexion 2- Poor- Abduction (C5) 2- Poor- External Rotation 2- Poor- Internal Rotation 2- Poor- PT-OP-Q Treatments Start: 05/03/22 14:19 Freq: Status: Active Protocol: Document 06/23/22 13:45 NBM (Rec: 06/23/22 14:39 NBM [id number]) Cardio Equipment Upper Body Ergometer (UBE) Duration (Minutes) 6 Seat Position 15 Height 2 Other 3' fwd, 3' bwd w/ cues for scap settng Therapeutic Exercises Sitting Exercises Scapular retraction Sitting Exercise Name scapular squeeze (also w/ UE ex's) Reps/Minutes x15 Comments tactile cues for scap squeeze and UT overactivation, improves w/cues Abduction Sitting Exercise Name AAROM Abd/ER /c PVC Side left Equipment Used dowel Comments sitting Pulleys Sitting Exercise Name Javi - GH flexion Side left Comments cues for UT overactivation L>R Standing Exercises Wall posture Standing Exercise Name weighted - 5# ea Side bilateral Equipment Used wall, 5# ea Reps/Minutes 2' Comments no increase in pain, stretch reported in L distal bicep Abduction Standing Exercise Name Isometric shoulder abduction Side left Equipment Used Ball on wall Reps/Minutes 5 hold x10 Flexion Standing Exercise Name Isometric shoulder flexion Side left Equipment Used Ball on wall Reps/Minutes 5 hold x10 Manual Therapy Treatment Soft Tissue Mobilization L shoulder Body Location L biceps, deltoid, UT, LS, rhomboid Mobilization Type Rolling,Sustained Pressure, Trigger Point Release Intensity/Depth Moderate Body Position Hooklying Comments manual pin and stretch to L UT and L LS - good feedback response. PT-OP-T Assessment and Plan Start: 05/03/22 14:19 Freq: Status: Active Protocol: Document 06/23/22 13:45 NBM (Rec: 06/23/22 14:39 NB [id number]) Physical Therapy Assessment Impairments Impairments Activity Tolerance,Functional Activities,Functional Mobility ,Pain,Posture,ROM,Soft Tissue Mobility,Strength Goals Two Impairment Severely limited ROM due to pain and post-op protocol Detention Goal (LTG) Pt to show increased left shoulder flexion and abduction to at least 120? 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 LTG Duration 07/04/22 One Impairment Pt does not have an appropriate home exercise program Short Term Goal (STG) Pt to be independent and compliant with an appropriate HEP STG Duration 06/03/22 Assessment Summary Assessment José presents today with increased L shoulder guarding consistent with reported soreness and Upper Trapezius overactivation. Pt requires initial tactile cues for scapular setting with upper extremity ex's but improves self-awarenss throughout session. Emphasis on pain-free range. Pt tolerates L shoulder flexion and ER isometrics today w/ slight increase in L bicep discomfort . Palbable tightness to L Upper trapezius and Levator Scapula decreases with manual therapy and pt presents with decreased L shoulder guarding and reports increased pain relief after manual. Ice declined. Two-unit session per 06/16/22 pt and therapist agreement due to insurance limitations. Physical Therapy Plan Frequency and Duration Frequency of Treatment 2x/Week Plan of Care Start Date 05/03/22 Plan of Care End Date 07/04/22 Therapeutic Interventions Therapeutic Interventions Home Exercise Program,Joint Mobilizations,Manual Therapy, Patient/Caregiver Education, Self-Care/Home Management,Soft Tissue Mobilization,Taping, Therapeutic Activities, Therapeutic Exercises Modalities Cold Pack/Ice Massage,Electric Stimulation,Hot Packs, Ultrasound Next Visit Focus/Plan Next Note Type Treatment Note Next Visit Plan Increasing AROM, addition of gentle strengthening and stretching
--- NOTE | 2022-06-27 14:25 | PT.OTN ---
Current Diagnoses Pain in left shoulder (06/27/22) Stiffness of left shoulder, not elsewhere classified (06/27/22) Impingement syndrome of left shoulder (06/27/22) Encounter for other specified surgical aftercare (06/27/22) Physical Therapy Treatment Note PT-OP-A Visit Information Start: 05/03/22 14:19 Freq: Status: Active Protocol: Document 06/27/22 13:48 DCW (Rec: 06/27/22 14:25 DCW [id number]) Out-Patient Physical Therapy Visit Information Visit Information Visit Type Treatment Note Visit Start Time 13:48 Visit Stop Time 15:23 Total Visit Minutes 35 Visit Number 12 Number of GROUP SEGMENT CONSULTANT Visits 0 Evaluation Information Evaluation Date 05/03/22 PT-OP-B Current Condition Start: 05/03/22 14:19 Freq: Status: Active Protocol: Document 05/03/22 13:45 DCW (Rec: 05/03/22 15:48 DCW [id number]) Current Condition History of Current Condition Onset Date 04/24/22? Current Complaints s/p left shoulder arthroscopic r/c debridement /c biceps repair History of Current Condition Pt is a 52 year old male with a long-standing history of bilateral shoulder pain presenting 9 days s/p left shoulder arthroscopic rotator cuff debridement with biceps repair. Per Dr Ortiz post-op protocol, pt currently in phase 1. Pt to continue using sling until two weeks post-op. Pt severely restricted with functional use of his left arm at ths moment, only has gotten out of sling for brief periods while sitting in his chair. Pt notes he lives with his mother, and needs to do most of the work around the house, but has obviously not been able to since surgery. Treatment Goals Patient/Caregiver Goals Improve functional mobility of his left shoulder PT-OP-C Subjective Start: 05/03/22 14:19 Freq: Status: Active Protocol: Document 06/27/22 13:48 DCW (Rec: 06/27/22 14:25 DCW [id number]) OP-PT Subjective Patient Comments Patient Comments I've been trying to ice it down 2-3 times a day, and it doesn't seem to be doing much of anything. Notes he has a follow-up with his surgeon next week, hoping to get a better idea of what's going on . PT-OP-F Manual Assessment Start: 05/03/22 14:19 Freq: Status: Active Protocol: Document 05/03/22 13:45 DCW (Rec: 05/03/22 14:37 DCW [id number]) Manual Assessments Joint Mobility Assessment Joint Mobility Assessment Left GH joint mobility severely limited secondary to post-op pain PT-OP-K Range of Motion Start: 05/03/22 14:19 Freq: Status: Active Protocol: Document 05/03/22 13:45 DCW (Rec: 05/03/22 14:37 DCW [id number]) Shoulder Goniometric Range of Motion Shoulder Left Passive Shoulder ROM WFL No Testing Position Sitting Flexion 15 Abduction 20 External Rotation at 0 degrees Abduction 0 Shoulder ROM Limitations Shoulder ROM Limitations Muscle Weakness,Muscle Tone, Pain,Swelling PT-OP-M Strength Start: 05/03/22 14:19 Freq: Status: Active Protocol: Document 05/03/22 13:45 DCW (Rec: 05/03/22 14:37 DCW [id number]) Shoulder Strength Shoulder Manual Muscle Testing Left Flexion 2- Poor- Abduction (C5) 2- Poor- External Rotation 2- Poor- Internal Rotation 2- Poor- PT-OP-Q Treatments Start: 05/03/22 14:19 Freq: Status: Active Protocol: Document 06/27/22 13:48 DCW (Rec: 06/27/22 14:25 DCW [id number]) Cardio Equipment Upper Body Ergometer (UBE) Duration (Minutes) 5 Seat Position 13 Height 3 Other 2.5' fwd, 2.5' bwd w/ cues for scap settng Therapeutic Exercises Sitting Exercises Pulleys Sitting Exercise Name Javi - GH flexion Side left Comments cues for UT overactivation L>R Standing Exercises ER/IR Standing Exercise Name Isometric ER/IR /c ball Pronation/Supination Standing Exercise Name Forearm P/S Side left Resistance 3# Abduction Standing Exercise Name Isometric shoulder abduction Side left Equipment Used Ball on wall Reps/Minutes 5 hold x10 Flexion Standing Exercise Name Isometric shoulder flexion Side left Equipment Used Ball on wall Reps/Minutes 5 hold x10 Biceps Curls Standing Exercise Name Biceps Curls Side left Resistance 3# Manual Therapy Treatment Soft Tissue Mobilization L shoulder Body Location L biceps, deltoid, UT, LS, rhomboid Mobilization Type Rolling,Sustained Pressure, Trigger Point Release Intensity/Depth Moderate Body Position Hooklying Comments manual pin and stretch to L UT and L LS - good feedback response. Other Other Manual Treatments Therapist-driven PROM of left shoulder - flexion, abduction, ER, horizontal adduction, circumduction all in relatively pain-free ROM. PT-OP-T Assessment and Plan Start: 05/03/22 14:19 Freq: Status: Active Protocol: Document 06/27/22 13:48 DCW (Rec: 06/27/22 14:25 DCW [id number]) Physical Therapy Assessment Impairments Impairments Activity Tolerance,Functional Activities,Functional Mobility ,Pain,Posture,ROM,Soft Tissue Mobility,Strength Goals Two Impairment Severely limited ROM due to pain and post-op protocol Skilled Nursing Goal (LTG) Pt to show increased left shoulder flexion and abduction to at least 120? 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 LTG Duration 07/04/22 One Impairment Pt does not have an appropriate home exercise program Short Term Goal (STG) Pt to be independent and compliant with an appropriate HEP STG Duration 06/03/22 Assessment Summary Assessment Pt continues to be more limited than he previously had been a few weeks ago, restricted with both passive and active ROM. Does respond well to reminder for scapular setting, however still cannot get back to prior ROM levels. Continue to focus on mobility and strengthening as tolerated . Physical Therapy Plan Frequency and Duration Frequency of Treatment 2x/Week Plan of Care Start Date 05/03/22 Plan of Care End Date 07/04/22 Therapeutic Interventions Therapeutic Interventions Home Exercise Program,Joint Mobilizations,Manual Therapy, Patient/Caregiver Education, Self-Care/Home Management,Soft Tissue Mobilization,Taping, Therapeutic Activities, Therapeutic Exercises Modalities Cold Pack/Ice Massage,Electric Stimulation,Hot Packs, Ultrasound Next Visit Focus/Plan Next Note Type Treatment Note Next Visit Plan Increasing AROM, addition of gentle strengthening and stretching
--- NOTE | 2022-06-30 15:50 | PT.OTN ---
Current Diagnoses Pain in left shoulder (06/30/22) Stiffness of left shoulder, not elsewhere classified (06/30/22) Impingement syndrome of left shoulder (06/30/22) Encounter for other specified surgical aftercare (06/30/22) Physical Therapy Treatment Note PT-OP-A Visit Information Start: 05/03/22 14:19 Freq: Status: Active Protocol: Document 06/30/22 13:49 NBM (Rec: 06/30/22 14:36 NBM [id number]) Out-Patient Physical Therapy Visit Information Visit Information Visit Type Treatment Note Visit Start Time 13:47 Visit Stop Time 14:32 Total Visit Minutes 45 Visit Number 13 Number of SOOT BLOWER Visits 1 PT-OP-B Current Condition Start: 05/03/22 14:19 Freq: Status: Active Protocol: Document 05/03/22 13:45 DCW (Rec: 05/03/22 15:48 DCW [id number]) Current Condition History of Current Condition Onset Date 04/24/22? Current Complaints s/p left shoulder arthroscopic r/c debridement /c biceps repair History of Current Condition Pt is a 52 year old male with a long-standing history of bilateral shoulder pain presenting 9 days s/p left shoulder arthroscopic rotator cuff debridement with biceps repair. Per Dr Ortiz post-op protocol, pt currently in phase 1. Pt to continue using sling until two weeks post-op. Pt severely restricted with functional use of his left arm at ths moment, only has gotten out of sling for brief periods while sitting in his chair. Pt notes he lives with his mother, and needs to do most of the work around the house, but has obviously not been able to since surgery. Treatment Goals Patient/Caregiver Goals Improve functional mobility of his left shoulder PT-OP-C Subjective Start: 05/03/22 14:19 Freq: Status: Active Protocol: Document 06/30/22 13:49 NBM (Rec: 06/30/22 14:36 NBM [id number]) OP-PT Subjective Patient Comments Patient Comments Pt states he's losing range and can't wash under R armpit anymore. He put his L hand on doorframe while reaching down and the stretch was extreme pain and he just about screamed. Pt has been icing 2- 3 times a day and isn't sure if it's helping. He has an appt with ortho on Sunday. PT-OP-F Manual Assessment Start: 05/03/22 14:19 Freq: Status: Active Protocol: Document 05/03/22 13:45 DCW (Rec: 05/03/22 14:37 DCW [id number]) Manual Assessments Joint Mobility Assessment Joint Mobility Assessment Left GH joint mobility severely limited secondary to post-op pain PT-OP-K Range of Motion Start: 05/03/22 14:19 Freq: Status: Active Protocol: Document 05/03/22 13:45 DCW (Rec: 05/03/22 14:37 DCW [id number]) Shoulder Goniometric Range of Motion Shoulder Left Passive Shoulder ROM WFL No Testing Position Sitting Flexion 15 Abduction 20 External Rotation at 0 degrees Abduction 0 Shoulder ROM Limitations Shoulder ROM Limitations Muscle Weakness,Muscle Tone, Pain,Swelling PT-OP-M Strength Start: 05/03/22 14:19 Freq: Status: Active Protocol: Document 05/03/22 13:45 DCW (Rec: 05/03/22 14:37 DCW [id number]) Shoulder Strength Shoulder Manual Muscle Testing Left Flexion 2- Poor- Abduction (C5) 2- Poor- External Rotation 2- Poor- Internal Rotation 2- Poor- PT-OP-Q Treatments Start: 05/03/22 14:19 Freq: Status: Active Protocol: Document 06/30/22 13:49 NBM (Rec: 06/30/22 14:36 NBM [id number]) Manual Therapy Treatment Soft Tissue Mobilization L shoulder Body Location L biceps, deltoid, UT, LS, rhomboid Mobilization Type Rolling,Sustained Pressure, Trigger Point Release Intensity/Depth Moderate Body Position Hooklying Comments treatment focus to L UT, LS and rhomboid, and manual pin and stretch to L UT and L LS with positive feedback response. Joint Mobilizations ST Joint L scapulothoracic Direction upwards/downwards rotation, elevation/depression, protraction/retraction Grade II Body Position Sidelying Comments positive feedback response Other Other Manual Treatments SOOT BLOWER-driven PROM of left shoulder - flexion, abduction, ER, horizontal adduction, circumduction all in very limited pain-free ROM. PT-OP-T Assessment and Plan Start: 05/03/22 14:19 Freq: Status: Active Protocol: Document 06/30/22 13:49 NBM (Rec: 06/30/22 14:36 NBM [id number]) Physical Therapy Assessment Goals Two Impairment Severely limited ROM due to pain and post-op protocol Correction Goal (LTG) Pt to show increased left shoulder flexion and abduction to at least 120? 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 LTG Duration 07/04/22 One Impairment Pt does not have an appropriate home exercise program Short Term Goal (STG) Pt to be independent and compliant with an appropriate HEP STG Duration 06/03/22 Assessment Summary Assessment Pt presents with increased pain and decreased pain-free ROM of L shoulder. Treatment focus on manual therapy with emphasis on L UT, LS and rhomboid, manual pin and stretch to L UT and L LS, Scapulothoracic joint mobilizations and Physical Therapist Electronic Component Processor-driven PROM with positive feedback response and improved L shoulder pain-free range of motion end of session. Physical Therapy Plan Frequency and Duration Frequency of Treatment 2x/Week Plan of Care Start Date 05/03/22 Plan of Care End Date 07/04/22 Therapeutic Interventions Therapeutic Interventions Home Exercise Program,Joint Mobilizations,Manual Therapy, Patient/Caregiver Education, Self-Care/Home Management,Soft Tissue Mobilization,Taping, Therapeutic Activities, Therapeutic Exercises Modalities Cold Pack/Ice Massage,Electric Stimulation,Hot Packs, Ultrasound Next Visit Focus/Plan Next Note Type Treatment Note Next Visit Plan Increasing AROM, addition of gentle strengthening and stretching
--- NOTE | 2022-07-07 14:17 | PT.OTN ---
Current Diagnoses Pain in left shoulder (07/07/22) Stiffness of left shoulder, not elsewhere classified (07/07/22) Impingement syndrome of left shoulder (07/07/22) Encounter for other specified surgical aftercare (07/07/22) Physical Therapy Treatment Note PT-OP-A Visit Information Start: 05/03/22 14:19 Freq: Status: Active Protocol: Document 07/07/22 13:45 DCW (Rec: 07/07/22 14:17 DCW [id number]) Out-Patient Physical Therapy Visit Information Visit Information Visit Type Progress Note Visit Start Time 13:45 Visit Stop Time 14:20 Total Visit Minutes 35 Visit Number 14 Number of POLE CUTTER Visits 0 Evaluation Information Evaluation Date 05/03/22 PT-OP-B Current Condition Start: 05/03/22 14:19 Freq: Status: Active Protocol: Document 05/03/22 13:45 DCW (Rec: 05/03/22 15:48 DCW [id number]) Current Condition History of Current Condition Onset Date 04/24/22? Current Complaints s/p left shoulder arthroscopic r/c debridement /c biceps repair History of Current Condition Pt is a 52 year old male with a long-standing history of bilateral shoulder pain presenting 9 days s/p left shoulder arthroscopic rotator cuff debridement with biceps repair. Per Dr Ortiz post-op protocol, pt currently in phase 1. Pt to continue using sling until two weeks post-op. Pt severely restricted with functional use of his left arm at ths moment, only has gotten out of sling for brief periods while sitting in his chair. Pt notes he lives with his mother, and needs to do most of the work around the house, but has obviously not been able to since surgery. Treatment Goals Patient/Caregiver Goals Improve functional mobility of his left shoulder PT-OP-C Subjective Start: 05/03/22 14:19 Freq: Status: Active Protocol: Document 07/07/22 13:45 DCW (Rec: 07/07/22 14:17 DCW [id number]) OP-PT Subjective Patient Comments Patient Comments Pt reports his ortho wants more aggressive shoulder mobility and strengthening, worried that he has built up too much scar tissue already, may need manipulation under anesthesia PT-OP-F Manual Assessment Start: 05/03/22 14:19 Freq: Status: Active Protocol: Document 07/07/22 13:45 DCW (Rec: 07/07/22 13:55 DCW [id number]) Manual Assessments Joint Mobility Assessment Joint Mobility Assessment Left GH joint mobility severely limited secondary to post-op pain PT-OP-K Range of Motion Start: 05/03/22 14:19 Freq: Status: Active Protocol: Document 07/07/22 13:45 DCW (Rec: 07/07/22 13:55 DCW [id number]) Shoulder Goniometric Range of Motion Shoulder Left Active Shoulder ROM WFL No Testing Position Sitting Flexion 73 Abduction 59 External Rotation at 0 degrees Abduction 44 Left Passive Shoulder ROM WFL No Testing Position Sitting Flexion 110 Abduction 82 External Rotation at 0 degrees Abduction 37 Shoulder ROM Limitations Shoulder ROM Limitations Muscle Weakness,Muscle Tone, Pain,Swelling PT-OP-M Strength Start: 05/03/22 14:19 Freq: Status: Active Protocol: Document 07/07/22 13:45 DCW (Rec: 07/07/22 13:55 DCW [id number]) Shoulder Strength Shoulder Manual Muscle Testing Left Flexion 2+ Poor+ Abduction (C5) 2+ Poor+ External Rotation 2+ Poor+ Internal Rotation 2+ Poor+ PT-OP-Q Treatments Start: 05/03/22 14:19 Freq: Status: Active Protocol: Document 07/07/22 13:45 DCW (Rec: 07/07/22 14:17 DCW [id number]) Therapeutic Exercises Sitting Exercises Curl/Press Sitting Exercise Name Biceps curl to overhead press Side left Resistance 2# Pulleys Sitting Exercise Name Javi - GH flexion Side left Comments cues for UT overactivation L>R Standing Exercises Adduction Standing Exercise Name Shoulder Adduction Side left Resistance Lv 3 Extension Standing Exercise Name Shoulder Extension Side left Resistance Lv 3 Wall Stretch Standing Exercise Name Wall Stretch - Flexion/ Abduction Side left Comments Get to end-range, then lean in to increase stretch ER/IR Standing Exercise Name ER/IR Side left Resistance Lv 1 Abduction Standing Exercise Name Abduction Side left Resistance 2# Flexion Standing Exercise Name Flexion Side left Resistance 2# Other Exercises Resisted Ambulation Other Exercise Name Resisted UE side-stepping Resistance Yellow PT-OP-T Assessment and Plan Start: 05/03/22 14:19 Freq: Status: Active Protocol: Document 07/07/22 13:45 DCW (Rec: 07/07/22 14:17 DCW [id number]) Physical Therapy Assessment Impairments Impairments Activity Tolerance,Functional Activities,Functional Mobility ,Pain,Posture,ROM,Soft Tissue Mobility,Strength Goals Two Impairment Severely limited ROM due to pain and post-op protocol Alf Goal (LTG) Pt to show increased left shoulder flexion and abduction to at least 120? 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 LTG Duration 08/21/22 One Impairment Pt does not have an appropriate home exercise program Short Term Goal (STG) Pt to be independent and compliant with an appropriate HEP STG Duration 08/01/22 Progress Towards Goals Progress Towards Goals Slow Progress due to Activity Tolerance,Slow Progress due to Medical Issues Assessment Summary Assessment Pt showing slight improvements since some decline over the past few weeks, still limited by severe pain with all activities. Per Ortho note, wants aggressive ROM, will attempt to focus on more strengthening and mobility, as well as increasing end-range ROM. Unfortunately, pt running low on authorized visits, unlikely to continue following end of insurance-covered PT sessions. Physical Therapy Plan Frequency and Duration Frequency of Treatment 2x/Week Plan of Care Start Date 07/07/22 Plan of Care End Date 08/21/22 Therapeutic Interventions Therapeutic Interventions Home Exercise Program,Joint Mobilizations,Manual Therapy, Patient/Caregiver Education, Self-Care/Home Management,Soft Tissue Mobilization,Taping, Therapeutic Activities, Therapeutic Exercises Modalities Cold Pack/Ice Massage,Electric Stimulation,Hot Packs, Ultrasound Next Visit Focus/Plan Next Note Type Treatment Note Next Visit Plan Increasing AROM, strengthening and stretching
--- NOTE | 2022-07-07 14:17 | PT.OPPOC ---
Physical, Occupational & Speech Therapy At [facility] Current Diagnoses Pain in left shoulder (07/07/22) Stiffness of left shoulder, not elsewhere classified (07/07/22) Impingement syndrome of left shoulder (07/07/22) Encounter for other specified surgical aftercare (07/07/22) Visit Care Team Role Provider Type Oswaldo Pickering MD Family Provider Physician Primary Care Provider Specialty: Internal Medicine Address: [address] [place] [address], [facility] [address], [place], [address] Email: [email or web address] David Watkins PA-C Attending Provider Non-Staff Referring Provider Specialty: Medical Address: [address] [place] [address], [id number] Phone: Email: Plan Of Care PT-OP-T Assessment and Plan Start: 05/03/22 14:19 Freq: Status: Active Protocol: Document 07/07/22 13:45 DCW (Rec: 07/07/22 14:17 DCW [id number]) Physical Therapy Assessment Impairments Impairments Activity Tolerance,Functional Activities,Functional Mobility ,Pain,Posture,ROM,Soft Tissue Mobility,Strength Goals Two Impairment Severely limited ROM due to pain and post-op protocol Senior Living Goal (LTG) Pt to show increased left shoulder flexion and abduction to at least 120? 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 LTG Duration 08/21/22 One Impairment Pt does not have an appropriate home exercise program Short Term Goal (STG) Pt to be independent and compliant with an appropriate HEP STG Duration 08/01/22 Progress Towards Goals Progress Towards Goals Slow Progress due to Activity Tolerance,Slow Progress due to Medical Issues Assessment Summary Assessment Pt showing slight improvements since some decline over the past few weeks, still limited by severe pain with all activities. Per Ortho note, wants aggressive ROM, will attempt to focus on more strengthening and mobility, as well as increasing end-range ROM. Unfortunately, pt running low on authorized visits, unlikely to continue following end of insurance-covered PT sessions. Physical Therapy Plan Frequency and Duration Frequency of Treatment 2x/Week Plan of Care Start Date 07/07/22 Plan of Care End Date 08/21/22 Therapeutic Interventions Therapeutic Interventions Home Exercise Program,Joint Mobilizations,Manual Therapy, Patient/Caregiver Education, Self-Care/Home Management,Soft Tissue Mobilization,Taping, Therapeutic Activities, Therapeutic Exercises Modalities Cold Pack/Ice Massage,Electric Stimulation,Hot Packs, Ultrasound Next Visit Focus/Plan Next Note Type Treatment Note Next Visit Plan Increasing AROM, strengthening and stretching Plan of Care Dates Plan of Care Start Date 07/07/22 Plan of Care End Date 08/21/22 Electronically Signed by: Jose Aranda, PT 07/07/22 2007 If you are in agreement with this Plan of Care, please return a signed and dated copy. I have reviewed this Plan of Care and certify that the skilled therapy services above are required to meet the patient?s needs. Physician Signature Date Printed Name and Credentials Clinical Instructor Signature Printed Name and Credentials
--- NOTE | 2022-07-11 16:00 | PT.OTN ---
Current Diagnoses Pain in left shoulder (07/11/22) Stiffness of left shoulder, not elsewhere classified (07/11/22) Impingement syndrome of left shoulder (07/11/22) Encounter for other specified surgical aftercare (07/11/22) Physical Therapy Treatment Note PT-OP-A Visit Information Start: 05/03/22 14:19 Freq: Status: Active Protocol: Document 07/11/22 14:39 NBM (Rec: 07/11/22 15:17 NBM [id number]) Out-Patient Physical Therapy Visit Information Visit Information Visit Type Treatment Note Visit Start Time 14:37 Visit Stop Time 15:14 Total Visit Minutes 37 Visit Number 15 Number of STATION ATTENDANT Visits 1 PT-OP-B Current Condition Start: 05/03/22 14:19 Freq: Status: Active Protocol: Document 05/03/22 13:45 DCW (Rec: 05/03/22 15:48 DCW [id number]) Current Condition History of Current Condition Onset Date 04/24/22? Current Complaints s/p left shoulder arthroscopic r/c debridement /c biceps repair History of Current Condition Pt is a 52 year old male with a long-standing history of bilateral shoulder pain presenting 9 days s/p left shoulder arthroscopic rotator cuff debridement with biceps repair. Per Dr Ortiz post-op protocol, pt currently in phase 1. Pt to continue using sling until two weeks post-op. Pt severely restricted with functional use of his left arm at ths moment, only has gotten out of sling for brief periods while sitting in his chair. Pt notes he lives with his mother, and needs to do most of the work around the house, but has obviously not been able to since surgery. Treatment Goals Patient/Caregiver Goals Improve functional mobility of his left shoulder PT-OP-C Subjective Start: 05/03/22 14:19 Freq: Status: Active Protocol: Document 07/11/22 14:39 NBM (Rec: 07/11/22 15:17 NBM [id number]) OP-PT Subjective Patient Comments Patient Comments Pt states he felt fine after last treatment but starting last night his pain became intense. He could not sleep from the pain, and used a sling this morning. He also uses a sling when he goes out. Pt sees ortho on 07/26 for 8 week checkup and to assess for manual manipulation. Pain 4-5 /10 beginning of session but was 8-910 before pain meds today. PT-OP-F Manual Assessment Start: 05/03/22 14:19 Freq: Status: Active Protocol: Document 07/07/22 13:45 DCW (Rec: 07/07/22 13:55 DCW [id number]) Manual Assessments Joint Mobility Assessment Joint Mobility Assessment Left GH joint mobility severely limited secondary to post-op pain PT-OP-K Range of Motion Start: 05/03/22 14:19 Freq: Status: Active Protocol: Document 07/07/22 13:45 DCW (Rec: 07/07/22 13:55 DCW [id number]) Shoulder Goniometric Range of Motion Shoulder Left Active Shoulder ROM WFL No Testing Position Sitting Flexion 73 Abduction 59 External Rotation at 0 degrees Abduction 44 Left Passive Shoulder ROM WFL No Testing Position Sitting Flexion 110 Abduction 82 External Rotation at 0 degrees Abduction 37 Shoulder ROM Limitations Shoulder ROM Limitations Muscle Weakness,Muscle Tone, Pain,Swelling PT-OP-M Strength Start: 05/03/22 14:19 Freq: Status: Active Protocol: Document 07/07/22 13:45 DCW (Rec: 07/07/22 13:55 DCW [id number]) Shoulder Strength Shoulder Manual Muscle Testing Left Flexion 2+ Poor+ Abduction (C5) 2+ Poor+ External Rotation 2+ Poor+ Internal Rotation 2+ Poor+ PT-OP-Q Treatments Start: 05/03/22 14:19 Freq: Status: Active Protocol: Document 07/11/22 14:39 NBM (Rec: 07/11/22 15:17 NBM [id number]) Cardio Equipment Upper Body Ergometer (UBE) Duration (Minutes) 5 Seat Position 13 Height 3 Other 2.5' fwd, 2.5' bwd w/ cues for scap settng Therapeutic Exercises Sitting Exercises Curl/Press Sitting Exercise Name Biceps curl to overhead press Side left Resistance 2# Standing Exercises Adduction Standing Exercise Name Shoulder Adduction Side left Resistance Lv 3 Extension Standing Exercise Name Shoulder Extension Side left Resistance Lv 3 Wall Stretch Standing Exercise Name Wall Stretch - Flexion/ Abduction, wall walk abduction Side left Equipment Used wall, green ball on wall Comments Get to end-range, then lean in to increase stretch ER/IR Standing Exercise Name ER/IR Side left Resistance Lv 1 Pronation/Supination Standing Exercise Name Forearm P/S Side left Resistance 3# Reps/Minutes x10 ea Abduction Standing Exercise Name Abduction Side left Resistance 2# Flexion Standing Exercise Name Flexion Side left Resistance 2# Other Exercises Resisted Ambulation Other Exercise Name Resisted UE side-stepping Side bilateral Resistance Yellow Reps/Minutes 3x10ft ea PT-OP-T Assessment and Plan Start: 05/03/22 14:19 Freq: Status: Active Protocol: Document 07/11/22 14:39 [facility] (Rec: 07/11/22 15:17 [facility] [id number]) Physical Therapy Assessment Assessment Summary Assessment Pt presents with increased soreness today 4-5 beginning of treatment session . Pt is able to tolerate treatment except for pain with wall abduction and has pain with AROM adduction on L. Physical Therapy Plan Frequency and Duration Frequency of Treatment 2x/Week Plan of Care Start Date 07/07/22 Plan of Care End Date 08/21/22 Therapeutic Interventions Therapeutic Interventions Home Exercise Program,Joint Mobilizations,Manual Therapy, Patient/Caregiver Education, Self-Care/Home Management,Soft Tissue Mobilization,Taping, Therapeutic Activities, Therapeutic Exercises Modalities Cold Pack/Ice Massage,Electric Stimulation,Hot Packs, Ultrasound Next Visit Focus/Plan Next Note Type Treatment Note Next Visit Plan Increasing AROM, strengthening and stretching
--- NOTE | 2022-07-18 16:03 | PT.OTN ---
Current Diagnoses Pain in left shoulder (07/18/22) Stiffness of left shoulder, not elsewhere classified (07/18/22) Impingement syndrome of left shoulder (07/18/22) Encounter for other specified surgical aftercare (07/18/22) Physical Therapy Treatment Note PT-OP-A Visit Information Start: 05/03/22 14:19 Freq: Status: Active Protocol: Document 07/18/22 15:19 NBM (Rec: 07/18/22 16:03 NBM [id number]) Out-Patient Physical Therapy Visit Information Visit Information Visit Type Treatment Note Visit Start Time 15:18 Visit Stop Time 15:54 Total Visit Minutes 36 Visit Number 16 Number of ORGAN PIPE MAKER METAL Visits 2 PT-OP-B Current Condition Start: 05/03/22 14:19 Freq: Status: Active Protocol: Document 05/03/22 13:45 DCW (Rec: 05/03/22 15:48 DCW [id number]) Current Condition History of Current Condition Onset Date 04/24/22? Current Complaints s/p left shoulder arthroscopic r/c debridement /c biceps repair History of Current Condition Pt is a 52 year old male with a long-standing history of bilateral shoulder pain presenting 9 days s/p left shoulder arthroscopic rotator cuff debridement with biceps repair. Per Dr Ortiz post-op protocol, pt currently in phase 1. Pt to continue using sling until two weeks post-op. Pt severely restricted with functional use of his left arm at ths moment, only has gotten out of sling for brief periods while sitting in his chair. Pt notes he lives with his mother, and needs to do most of the work around the house, but has obviously not been able to since surgery. Treatment Goals Patient/Caregiver Goals Improve functional mobility of his left shoulder PT-OP-C Subjective Start: 05/03/22 14:19 Freq: Status: Active Protocol: Document 07/18/22 15:19 NBM (Rec: 07/18/22 16:03 NBM [id number]) OP-PT Subjective Patient Comments Patient Comments Pt states he has been trying to avoid the sling because it seems to cause more pain - he uses it when he goes out Fridays for shopping. He was trying to stretch more Sunday and thinks he may have overdone it because he woke up Sunday with it hurting . He rested and it's better today. Pt reports pain 6/10 start of treatment which isn' t bad considering all the stretches I have to do to shower today. PT-OP-F Manual Assessment Start: 05/03/22 14:19 Freq: Status: Active Protocol: Document 07/07/22 13:45 DCW (Rec: 07/07/22 13:55 DCW [id number]) Manual Assessments Joint Mobility Assessment Joint Mobility Assessment Left GH joint mobility severely limited secondary to post-op pain PT-OP-K Range of Motion Start: 05/03/22 14:19 Freq: Status: Active Protocol: Document 07/07/22 13:45 DCW (Rec: 07/07/22 13:55 DCW [id number]) Shoulder Goniometric Range of Motion Shoulder Left Active Shoulder ROM WFL No Testing Position Sitting Flexion 73 Abduction 59 External Rotation at 0 degrees Abduction 44 Left Passive Shoulder ROM WFL No Testing Position Sitting Flexion 110 Abduction 82 External Rotation at 0 degrees Abduction 37 Shoulder ROM Limitations Shoulder ROM Limitations Muscle Weakness,Muscle Tone, Pain,Swelling PT-OP-M Strength Start: 05/03/22 14:19 Freq: Status: Active Protocol: Document 07/07/22 13:45 DCW (Rec: 07/07/22 13:55 DCW [id number]) Shoulder Strength Shoulder Manual Muscle Testing Left Flexion 2+ Poor+ Abduction (C5) 2+ Poor+ External Rotation 2+ Poor+ Internal Rotation 2+ Poor+ PT-OP-Q Treatments Start: 05/03/22 14:19 Freq: Status: Active Protocol: Document 07/18/22 15:19 NBM (Rec: 07/18/22 16:03 NBM [id number]) Cardio Equipment Upper Body Ergometer (UBE) Duration (Minutes) 8 Seat Position 13 Height 2 Other 4 fwd, 4' bwd w/ cues for scap settng Therapeutic Exercises Sitting Exercises Curl/Press Sitting Exercise Name Biceps curl to overhead press Side left Resistance 2# Standing Exercises Adduction Standing Exercise Name Shoulder Adduction Side left Resistance Lv 3 Extension Standing Exercise Name Shoulder Extension Side left Resistance Lv 3 Abduction Standing Exercise Name Abduction Side left Resistance 2# Reps/Minutes x10 Comments cues for pain-free range Flexion Standing Exercise Name 1.D1/D2 flexion patterns w/ Lvl 3 Tb 2.Flexion Side left Resistance Lvl 3 Tb; 2# Reps/Minutes x10 Comments 1.dc'd d/t pt c/o of pain 2. cue for slow eccentric, pain- free range Other Exercises Resisted Ambulation Other Exercise Name Resisted UE side-stepping Side bilateral Resistance Yellow Reps/Minutes 2x10ft ea Manual Therapy Treatment Soft Tissue Mobilization L shoulder Body Location L biceps, deltoid, UT, LS, rhomboid Mobilization Type Rolling,Sustained Pressure, Trigger Point Release Intensity/Depth Moderate Body Position Sidelying Comments gentle pain-free PROM L shelia abduction to 90deg Joint Mobilizations ST Joint L scapulothoracic Direction upwards/downwards rotation, elevation/depression, protraction/retraction Grade II Body Position Sidelying Self-Care/Home Management Treatment Education Patient Education Home Exercise Program,Pain Management Other Education Pt reminded to stay within pain-free ROM w/ stretches and ex's, and to use scapular setting with ex's and upper extremity movements. PT-OP-T Assessment and Plan Start: 05/03/22 14:19 Freq: Status: Active Protocol: Document 07/18/22 15:19 [facility] (Rec: 07/18/22 16:03 [facility] [id number]) Physical Therapy Assessment Impairments Impairments Activity Tolerance,Functional Activities,Functional Mobility ,Pain,Posture,ROM,Soft Tissue Mobility,Strength Goals Two Impairment Severely limited ROM due to pain and post-op protocol Intermediate Goal (LTG) Pt to show increased left shoulder flexion and abduction to at least 120? 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 LTG Duration 08/21/22 One Impairment Pt does not have an appropriate home exercise program Short Term Goal (STG) Pt to be independent and compliant with an appropriate HEP STG Duration 08/01/22 Assessment Summary Assessment One visit remaining. Gentle pain-free PROM L sheila abduction to 90deg. Pt reminded to stay within pain-free ROM w/ stretches and ex's, and to use scapular setting and chin tuck with ex's and upper extremity movements. Physical Therapy Plan Frequency and Duration Frequency of Treatment 2x/Week Plan of Care Start Date 07/07/22 Plan of Care End Date 08/21/22 Therapeutic Interventions Therapeutic Interventions Home Exercise Program,Joint Mobilizations,Manual Therapy, Patient/Caregiver Education, Self-Care/Home Management,Soft Tissue Mobilization,Taping, Therapeutic Activities, Therapeutic Exercises Modalities Cold Pack/Ice Massage,Electric Stimulation,Hot Packs, Ultrasound Next Visit Focus/Plan Next Note Type Treatment Note Next Visit Plan Increasing AROM, strengthening and stretching
--- NOTE | 2022-08-10 14:31 | PT-OP ANOTE ---
Pt arrived today post recent left shoulder surgery 08/07/22. Per pt he had a debridement and manipulation. He had been seen here prior to second surgery. The department was not informed he would be having a manipulation and therefore Dr. Ortiz's MA was contacted to have second referral with new parameters along with post op notes sent to department to proceed with care. Pt. was scheduled in while the department awaits new referral.
--- NOTE | 2022-09-06 14:26 | PT.OTRE ---
Current Diagnoses Pain in left shoulder (09/06/22) Stiffness of left shoulder, not elsewhere classified (09/06/22) Impingement syndrome of left shoulder (09/06/22) Encounter for other specified surgical aftercare (09/06/22) Past Medical History (Last Updated 03/26/22 @ 08:49 by Oswaldo Pickering MD) Carpal tunnel syndrome (Unknown) Chronic pain syndrome (Unknown) Chronic right shoulder pain Hx of tendinitis (~2016) Neuropathic pain Primary insomnia (03/13/16) Shoulder pain (2010) Type 2 diabetes mellitus without complication, without long-term current use of insulin (12/15/15) Uncomplicated opioid dependence (03/06/17) Uncomplicated opioid dependence Surgical History (Last Reviewed 03/12/22 @ 03:02 by FOREIGN [place]) History of hernia repair (06/07/17) Hx of hernia repair (2005) Visit Care Team Role Provider Type Oswaldo Pickering MD Family Provider Physician Primary Care Provider Specialty: Internal Medicine Address: [address] [place] [address], [address], [address] Email: [email or web address] David Watkins PA-C Attending Provider Non-Staff Referring Provider Specialty: Medical Address: [address] [place] [address], [address] Phone: Email: Physical Therapy Re-Evaluation PT-OP-A Visit Information Start: 05/03/22 14:19 Freq: Status: Active Protocol: Document 09/06/22 12:00 DCW (Rec: 09/06/22 14:21 DCW [id number]) Out-Patient Physical Therapy Visit Information Visit Information Visit Type Re-Evaluation Visit Note Manipulation under anesthesia, debridement 08/07/22 Visit Start Time 12:00 Visit Stop Time 12:45 Total Visit Minutes 45 Visit Number 17 Number of STAFFING RECRUITER Visits 0 Evaluation Information Evaluation Date 05/03/22 PT-OP-B Current Condition Start: 05/03/22 14:19 Freq: Status: Active Protocol: Document 09/06/22 12:00 DCW (Rec: 09/06/22 14:16 DCW [id number]) Current Condition History of Current Condition Onset Date 04/24/22; 08/07/22 Current Complaints s/p left shoulder arthroscopic r/c debridement /c biceps repair History of Current Condition Pt is a 52 year old male with a long-standing history of bilateral shoulder pain presenting 9 days s/p left shoulder arthroscopic rotator cuff debridement with biceps repair. Per Dr Ortiz post-op protocol, pt currently in phase 1. Pt to continue using sling until two weeks post-op. Pt severely restricted with functional use of his left arm at ths moment, only has gotten out of sling for brief periods while sitting in his chair. Pt notes he lives with his mother, and needs to do most of the work around the house, but has obviously not been able to since surgery. ADDENDUM 09/06/22: Pt returns to skilled PT four weeks s/p manipulation under anesthesia and a second debridement following a plateau in progress after initial surgery . Surgical note reports there was extensive debridement performed. Pt reports he was told to continue to work on ROM, don't lift anything heavy, and that he was not required to wear a brace this time. Pt has been independently working on wall stretching, pendulums, and just keeping it moving and carrying things around. Notes he feels a lot better now than he had been following his first surgery, believes both and pain and mobility has improved since pre- manipulation. Treatment Goals Patient/Caregiver Goals I want complete use of my left arm back. Notes it would also be nice to be able to sleep on his left side. PT-OP-C Subjective Start: 05/03/22 14:19 Freq: Status: Active Protocol: Document 09/06/22 12:00 DCW (Rec: 09/06/22 14:21 DCW [id number]) OP-PT Subjective Patient Comments Patient Comments He said he really had to get in there and just clean things out. Notes significant improvement with pain and mobility compared to pre- manipulation. PT-OP-F Manual Assessment Start: 05/03/22 14:19 Freq: Status: Active Protocol: Document 09/06/22 12:00 DCW (Rec: 09/06/22 14:16 DCW [id number]) Manual Assessments Joint Mobility Assessment Joint Mobility Assessment Left GH joint mobility moderately limited secondary to post-op stiffness PT-OP-K Range of Motion Start: 05/03/22 14:19 Freq: Status: Active Protocol: Document 09/06/22 12:00 DCW (Rec: 09/06/22 14:16 [facility] [id number]) Shoulder Goniometric Range of Motion Shoulder Measured in Degrees Left Active Shoulder ROM WFL No Testing Position Sitting Flexion 101 Abduction 92 External Rotation at 0 degrees Abduction 70 Left Passive Shoulder ROM WFL No Testing Position Sitting Flexion 113 Abduction 103 External Rotation at 0 degrees Abduction 65 Shoulder ROM Limitations Shoulder ROM Limitations Muscle Weakness,Muscle Tone, Pain PT-OP-M Strength Start: 05/03/22 14:19 Freq: Status: Active Protocol: Document 09/06/22 12:00 DCW (Rec: 09/06/22 14:16 [facility] [id number]) Shoulder Strength Shoulder Manual Muscle Testing Left Flexion 3- Fair- Abduction (C5) 3- Fair- External Rotation 4- Good- Internal Rotation 4- Good- PT-OP-Q Treatments Start: 05/03/22 14:19 Freq: Status: Active Protocol: Document 09/06/22 12:00 DCW (Rec: 09/06/22 14:21 [facility] [id number]) Cardio Equipment Upper Body Ergometer (UBE) Duration (Minutes) 4 Seat Position 13 Height 3 Other 2' fwd, 2' bwd Therapeutic Exercises Sitting Exercises Curl/Press Sitting Exercise Name Biceps curl/reverse curl Side left Resistance 3# ER Sitting Exercise Name ER Side bilateral Resistance Lv 1 Abduction Sitting Exercise Name Horizontal Abduction Side bilateral Resistance Lv 1 Pulleys Sitting Exercise Name Javi - GH flexion Standing Exercises Abduction Standing Exercise Name Wall slides - abduction Side left Flexion Standing Exercise Name Wall slides - flexion Side left PT-OP-T Assessment and Plan Start: 05/03/22 14:19 Freq: Status: Active Protocol: Document 09/06/22 12:00 DCW (Rec: 09/06/22 14:26 [facility] [id number]) Physical Therapy Assessment Rehab Potential Rehabilitation Potential Good Evaluation Complexity Number of Personal Factors/Comorbidities 1-2 Number of Body Systems Impaired 3 Clinical Presentation at Evaluation Stable Impairments Impairments Activity Tolerance,Functional Activities,Functional Mobility ,Pain,ROM,Soft Tissue Mobility ,Strength,Tone Goals Two Impairment Severely limited ROM due to pain and post-op protocol Lead Sprinkler Goal (LTG) Pt to show increased left shoulder flexion and abduction to at least 120? 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 LTG Duration 11/06/22 - improving One Impairment Pt does not have an appropriate home exercise program Short Term Goal (STG) Pt to be independent and compliant with an appropriate HEP STG Duration 10/07/22 - improving Assessment Summary Assessment Pt showing significant improvement in both pain levels and active/passive ROM following manipulation and a second debridement. Shoulder AROM his improved, with flexion increasing from 73? to 101?, and abduction improving from 59? to 92?. Pt should continue to improve with continued focus on strengthening, flexibility, ROM, and return to usual functional mobility. Physical Therapy Plan Frequency and Duration Frequency of Treatment 2x/Week Plan of Care Start Date 09/06/22 Plan of Care End Date 11/06/22 Therapeutic Interventions Therapeutic Interventions Home Exercise Program,Joint Mobilizations,Manual Therapy, Patient/Caregiver Education, Self-Care/Home Management,Soft Tissue Mobilization,Taping, Therapeutic Activities, Therapeutic Exercises Modalities Cold Pack/Ice Massage,Electric Stimulation,Hot Packs, Ultrasound Next Visit Focus/Plan Next Note Type Treatment Note Next Visit Plan Increasing AROM, strengthening and stretching
--- NOTE | 2022-09-06 14:27 | PT.OPPOC ---
Physical, Occupational & Speech Therapy At [facility] Current Diagnoses Pain in left shoulder (09/06/22) Stiffness of left shoulder, not elsewhere classified (09/06/22) Impingement syndrome of left shoulder (09/06/22) Encounter for other specified surgical aftercare (09/06/22) Visit Care Team Role Provider Type Oswaldo Pickering MD Family Provider Physician Primary Care Provider Specialty: Internal Medicine Address: [address] [place] [address], [address], [place], [address] Email: [email or web address] David Watkins PA-C Attending Provider Non-Staff Referring Provider Specialty: Medical Address: [address] [place] [address], [address] Phone: Email: Plan Of Care PT-OP-T Assessment and Plan Start: 05/03/22 14:19 Freq: Status: Active Protocol: Document 09/06/22 12:00 DCW (Rec: 09/06/22 14:26 DCW [id number]) Physical Therapy Assessment Rehab Potential Rehabilitation Potential Good Evaluation Complexity Number of Personal Factors/Comorbidities 1-2 Number of Body Systems Impaired 3 Clinical Presentation at Evaluation Stable Impairments Impairments Activity Tolerance,Functional Activities,Functional Mobility ,Pain,ROM,Soft Tissue Mobility ,Strength,Tone Goals Two Impairment Severely limited ROM due to pain and post-op protocol Usp Goal (LTG) Pt to show increased left shoulder flexion and abduction to at least 120? 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 LTG Duration 11/06/22 - improving One Impairment Pt does not have an appropriate home exercise program Short Term Goal (STG) Pt to be independent and compliant with an appropriate HEP STG Duration 10/07/22 - improving Assessment Summary Assessment Pt showing significant improvement in both pain levels and active/passive ROM following manipulation and a second debridement. Shoulder AROM his improved, with flexion increasing from 73? to 101?, and abduction improving from 59? to 92?. Pt should continue to improve with continued focus on strengthening, flexibility, ROM, and return to usual functional mobility. Physical Therapy Plan Frequency and Duration Frequency of Treatment 2x/Week Plan of Care Start Date 09/06/22 Plan of Care End Date 11/06/22 Therapeutic Interventions Therapeutic Interventions Home Exercise Program,Joint Mobilizations,Manual Therapy, Patient/Caregiver Education, Self-Care/Home Management,Soft Tissue Mobilization,Taping, Therapeutic Activities, Therapeutic Exercises Modalities Cold Pack/Ice Massage,Electric Stimulation,Hot Packs, Ultrasound Next Visit Focus/Plan Next Note Type Treatment Note Next Visit Plan Increasing AROM, strengthening and stretching Plan of Care Dates Plan of Care Start Date 09/06/22 Plan of Care End Date 11/06/22 Electronically Signed by: Jose Aranda, PT 09/06/22 [id number] If you are in agreement with this Plan of Care, please return a signed and dated copy. I have reviewed this Plan of Care and certify that the skilled therapy services above are required to meet the patient?s needs. Physician Signature Date Printed Name and Credentials Clinical Instructor Signature Printed Name and Credentials
--- NOTE | 2022-09-12 12:44 | PT.OTN ---
Current Diagnoses Pain in left shoulder (09/12/22) Stiffness of left shoulder, not elsewhere classified (09/12/22) Impingement syndrome of left shoulder (09/12/22) Encounter for other specified surgical aftercare (09/12/22) Physical Therapy Treatment Note PT-OP-A Visit Information Start: 05/03/22 14:19 Freq: Status: Active Protocol: Document 09/12/22 12:00 DCW (Rec: 09/12/22 12:44 DCW [id number]) Out-Patient Physical Therapy Visit Information Visit Information Visit Type Treatment Note Visit Note Manipulation under anesthesia, debridement 08/07/22 Visit Start Time 12:00 Visit Stop Time 12:45 Total Visit Minutes 45 Visit Number 18 Number of REPRODUCTION ORDER PROCESSOR Visits 0 Evaluation Information Evaluation Date 05/03/22 PT-OP-B Current Condition Start: 05/03/22 14:19 Freq: Status: Active Protocol: Document 09/06/22 12:00 DCW (Rec: 09/06/22 14:16 DCW [id number]) Current Condition History of Current Condition Onset Date 04/24/22; 08/07/22 Current Complaints s/p left shoulder arthroscopic r/c debridement /c biceps repair History of Current Condition Pt is a 52 year old male with a long-standing history of bilateral shoulder pain presenting 9 days s/p left shoulder arthroscopic rotator cuff debridement with biceps repair. Per Dr Ortiz post-op protocol, pt currently in phase 1. Pt to continue using sling until two weeks post-op. Pt severely restricted with functional use of his left arm at ths moment, only has gotten out of sling for brief periods while sitting in his chair. Pt notes he lives with his mother, and needs to do most of the work around the house, but has obviously not been able to since surgery. ADDENDUM 09/06/22: Pt returns to skilled PT four weeks s/p manipulation under anesthesia and a second debridement following a plateau in progress after initial surgery . Surgical note reports there was extensive debridement performed. Pt reports he was told to continue to work on ROM, don't lift anything heavy, and that he was not required to wear a brace this time. Pt has been independently working on wall stretching, pendulums, and just keeping it moving and carrying things around. Notes he feels a lot better now than he had been following his first surgery, believes both and pain and mobility has improved since pre- manipulation. Treatment Goals Patient/Caregiver Goals I want complete use of my left arm back. Notes it would also be nice to be able to sleep on his left side. PT-OP-C Subjective Start: 05/03/22 14:19 Freq: Status: Active Protocol: Document 09/12/22 12:00 DCW (Rec: 09/12/22 12:44 DCW [id number]) OP-PT Subjective Patient Comments Patient Comments After last session, I seemed to have lost some of my motion , I think it was the arm bike, I just over did-it a bit. But it's feeling better now. PT-OP-F Manual Assessment Start: 05/03/22 14:19 Freq: Status: Active Protocol: Document 09/06/22 12:00 DCW (Rec: 09/06/22 14:16 DCW [id number]) Manual Assessments Joint Mobility Assessment Joint Mobility Assessment Left GH joint mobility moderately limited secondary to post-op stiffness PT-OP-K Range of Motion Start: 05/03/22 14:19 Freq: Status: Active Protocol: Document 09/06/22 12:00 DCW (Rec: 09/06/22 14:16 DCW [id number]) Shoulder Goniometric Range of Motion Shoulder Left Active Shoulder ROM WFL No Testing Position Sitting Flexion 101 Abduction 92 External Rotation at 0 degrees Abduction 70 Left Passive Shoulder ROM WFL No Testing Position Sitting Flexion 113 Abduction 103 External Rotation at 0 degrees Abduction 65 Shoulder ROM Limitations Shoulder ROM Limitations Muscle Weakness,Muscle Tone, Pain PT-OP-M Strength Start: 05/03/22 14:19 Freq: Status: Active Protocol: Document 09/06/22 12:00 DCW (Rec: 09/06/22 14:16 DCW [id number]) Shoulder Strength Shoulder Manual Muscle Testing Left Flexion 3- Fair- Abduction (C5) 3- Fair- External Rotation 4- Good- Internal Rotation 4- Good- PT-OP-Q Treatments Start: 05/03/22 14:19 Freq: Status: Active Protocol: Document 09/12/22 12:00 DCW (Rec: 09/12/22 12:44 DCW [id number]) Therapeutic Exercises Sitting Exercises Curl/Press Sitting Exercise Name Biceps curl/reverse curl Side left Resistance 3# Pulleys Sitting Exercise Name Javi - GH flexion Standing Exercises Adduction Standing Exercise Name Shoulder Adduction Side left Resistance Green T-band Extension Standing Exercise Name Shoulder Extension Side left Resistance Green T-band Wall Stretch Standing Exercise Name Wall Stretch - Flexion/ Abduction, wall walk abduction Side left Equipment Used wall, green ball on wall Comments Get to end-range, then lean in to increase stretch Pronation/Supination Standing Exercise Name Forearm P/S Side left Resistance 3# Reps/Minutes x10 ea Manual Therapy Treatment Soft Tissue Mobilization L shoulder Body Location L biceps, deltoid, UT, LS, rhomboid Mobilization Type Rolling,Sustained Pressure, Trigger Point Release Intensity/Depth Moderate Body Position Sidelying Comments gentle pain-free PROM L sheila abduction to 90deg Joint Mobilizations ST Joint L scapulothoracic Direction upwards/downwards rotation, elevation/depression, protraction/retraction Grade II Body Position Sidelying Other Other Manual Treatments PT-driven PROM of left shoulder - flexion, abduction, ER, horizontal adduction, circumduction in pain-free ROM . PT-OP-T Assessment and Plan Start: 05/03/22 14:19 Freq: Status: Active Protocol: Document 09/12/22 12:00 DCW (Rec: 09/12/22 12:44 DCW [id number]) Physical Therapy Assessment Impairments Impairments Activity Tolerance,Functional Activities,Functional Mobility ,Pain,ROM,Soft Tissue Mobility ,Strength,Tone Goals Two Impairment Severely limited ROM due to pain and post-op protocol Snf Goal (LTG) Pt to show increased left shoulder flexion and abduction to at least 120? 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 LTG Duration 11/06/22 - improving One Impairment Pt does not have an appropriate home exercise program Short Term Goal (STG) Pt to be independent and compliant with an appropriate HEP STG Duration 10/07/22 - improving Assessment Summary Assessment Pt experiencing increased tone /tenderness in left upper trap , otherwise continues to show substantial progress with overall improvement since prior to manipulation. Continue to focus on ROM and end-range strengthening. Physical Therapy Plan Frequency and Duration Frequency of Treatment 2x/Week Plan of Care Start Date 09/06/22 Plan of Care End Date 11/06/22 Therapeutic Interventions Therapeutic Interventions Home Exercise Program,Joint Mobilizations,Manual Therapy, Patient/Caregiver Education, Self-Care/Home Management,Soft Tissue Mobilization,Taping, Therapeutic Activities, Therapeutic Exercises Modalities Cold Pack/Ice Massage,Electric Stimulation,Hot Packs, Ultrasound Next Visit Focus/Plan Next Note Type Treatment Note Next Visit Plan Increasing AROM, strengthening and stretching
--- NOTE | 2022-09-20 12:45 | PT.OTN ---
Current Diagnoses Pain in left shoulder (09/20/22) Stiffness of left shoulder, not elsewhere classified (09/20/22) Impingement syndrome of left shoulder (09/20/22) Encounter for other specified surgical aftercare (09/20/22) Physical Therapy Treatment Note PT-OP-A Visit Information Start: 05/03/22 14:19 Freq: Status: Active Protocol: Document 09/20/22 12:03 SP (Rec: 09/20/22 12:48 SP [id number]) Out-Patient Physical Therapy Visit Information Visit Information Visit Type Treatment Note Visit Note Manipulation under anesthesia, debridement 08/07/22 Visit Start Time 12:03 Visit Stop Time 12:45 Total Visit Minutes 42 Visit Number 19 Number of BRIDGE CARPENTER Visits 1 Evaluation Information Evaluation Date 05/03/22 Precautions Precautions Phase I protocol: Sling (0-2 weeks) Scapular and GH Mobilization Pendulums/Cane/Javi Isometrics in all directions Biceps/Triceps exercises Modalities PRN PT-OP-B Current Condition Start: 05/03/22 14:19 Freq: Status: Active Protocol: Document 09/06/22 12:00 DCW (Rec: 09/06/22 14:16 DCW [id number]) Current Condition History of Current Condition Onset Date 04/24/22; 08/07/22 Current Complaints s/p left shoulder arthroscopic r/c debridement /c biceps repair History of Current Condition Pt is a 52 year old male with a long-standing history of bilateral shoulder pain presenting 9 days s/p left shoulder arthroscopic rotator cuff debridement with biceps repair. Per Dr Ortiz post-op protocol, pt currently in phase 1. Pt to continue using sling until two weeks post-op. Pt severely restricted with functional use of his left arm at ths moment, only has gotten out of sling for brief periods while sitting in his chair. Pt notes he lives with his mother, and needs to do most of the work around the house, but has obviously not been able to since surgery. ADDENDUM 09/06/22: Pt returns to skilled PT four weeks s/p manipulation under anesthesia and a second debridement following a plateau in progress after initial surgery . Surgical note reports there was extensive debridement performed. Pt reports he was told to continue to work on ROM, don't lift anything heavy, and that he was not required to wear a brace this time. Pt has been independently working on wall stretching, pendulums, and just keeping it moving and carrying things around. Notes he feels a lot better now than he had been following his first surgery, believes both and pain and mobility has improved since pre- manipulation. Treatment Goals Patient/Caregiver Goals I want complete use of my left arm back. Notes it would also be nice to be able to sleep on his left side. PT-OP-C Subjective Start: 05/03/22 14:19 Freq: Status: Active Protocol: Document 09/20/22 12:03 SP (Rec: 09/20/22 12:48 SP [id number]) OP-PT Subjective Patient Comments Patient Comments Pt stated trying to be proactive and keep and progress movement. PT-OP-F Manual Assessment Start: 05/03/22 14:19 Freq: Status: Active Protocol: Document 09/06/22 12:00 DCW (Rec: 09/06/22 14:16 DCW [id number]) Manual Assessments Joint Mobility Assessment Joint Mobility Assessment Left GH joint mobility moderately limited secondary to post-op stiffness PT-OP-K Range of Motion Start: 05/03/22 14:19 Freq: Status: Active Protocol: Document 09/06/22 12:00 DCW (Rec: 09/06/22 14:16 DCW [id number]) Shoulder Goniometric Range of Motion Shoulder Left Active Shoulder ROM WFL No Testing Position Sitting Flexion 101 Abduction 92 External Rotation at 0 degrees Abduction 70 Left Passive Shoulder ROM WFL No Testing Position Sitting Flexion 113 Abduction 103 External Rotation at 0 degrees Abduction 65 Shoulder ROM Limitations Shoulder ROM Limitations Muscle Weakness,Muscle Tone, Pain PT-OP-M Strength Start: 05/03/22 14:19 Freq: Status: Active Protocol: Document 09/06/22 12:00 DCW (Rec: 09/06/22 14:16 DCW [id number]) Shoulder Strength Shoulder Manual Muscle Testing Left Flexion 3- Fair- Abduction (C5) 3- Fair- External Rotation 4- Good- Internal Rotation 4- Good- PT-OP-Q Treatments Start: 05/03/22 14:19 Freq: Status: Active Protocol: Document 09/20/22 12:03 SP (Rec: 09/20/22 12:48 SP [id number]) Therapeutic Exercises Sidelying Exercises ER Sidelying Exercise Name added to HEP Side left Reps/Minutes 5 x2 Comments cued slow painfree range ABD Sidelying Exercise Name added to HEP Side left Reps/Minutes 5x2 Comments cued slow painfree range- therapist tactile scap UR/DR fac Sitting Exercises Pulleys Sitting Exercise Name Javi - GH flexion, ABD, Scaption Side left Equipment Used use mirror self corrections inferior glide scap/humerus Reps/Minutes 6 min total Comments cued slow, allow humer head inferior glide- little twinging Standing Exercises Adduction Standing Exercise Name Shoulder Adduction Side left Resistance Green T-band Reps/Minutes x20 Comments good form, painfree Extension Standing Exercise Name Shoulder Extension Side left Resistance Green T-band Reps/Minutes x20 Comments good form, painfree Wall Stretch Standing Exercise Name wall walking FF, ABD Side left Equipment Used wall, green ball on wall Reps/Minutes 5 reps each- Comments cued no UT, stop breath before progress further ER/IR Standing Exercise Name ER/IR- added to HEP Side left Resistance Lv 1 peach Equipment Used towel roll under arm Reps/Minutes x10 Comments cued for scap set, slow con/ ecc painfree range, elbow 90 deg Biceps Curls Standing Exercise Name Biceps Curls Side left Resistance 3#>4# Reps/Minutes x10 Comments cued level shld, better SB R center Manual Therapy Treatment Soft Tissue Mobilization scar mob Body Location L Mobilization Type Rolling Comments manual and ed self application L shoulder Body Location L biceps, deltoid, UT, LS, rhomboid Mobilization Type Rolling,Sustained Pressure, Trigger Point Release Intensity/Depth Moderate Body Position Sidelying Comments gentle pain-free PROM L sheila abduction approx 120 deg Joint Mobilizations L GH Jt Joint L Direction inferior, posterior Grade II Body Position Hooklying Comments manual. Manual Techniques PROM Type L shld: FF, ABD, ER Comments manual PT-OP-T Assessment and Plan Start: 05/03/22 14:19 Freq: Status: Active Protocol: Document 09/20/22 12:03 SP (Rec: 09/20/22 12:48 SP [id number]) Physical Therapy Assessment Goals Two Impairment Severely limited ROM due to pain and post-op protocol [facility] Goal (LTG) Pt to show increased left shoulder flexion and abduction to at least 120? 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 LTG Duration 11/06/22 - improving One Impairment Pt does not have an appropriate home exercise program Short Term Goal (STG) Pt to be independent and compliant with an appropriate HEP STG Duration 10/07/22 - improving Assessment Summary Assessment Pt good self corrections with humeral and scapular inferior glide with slow AAROM wall / sitting, AROM on side. Good feedback resposne added side abd, er. Physical Therapy Plan Frequency and Duration Frequency of Treatment 2x/Week Plan of Care Start Date 09/06/22 Plan of Care End Date 11/06/22 Therapeutic Interventions Therapeutic Interventions Home Exercise Program,Joint Mobilizations,Manual Therapy, Patient/Caregiver Education, Self-Care/Home Management,Soft Tissue Mobilization,Taping, Therapeutic Activities, Therapeutic Exercises Modalities Cold Pack/Ice Massage,Electric Stimulation,Hot Packs, Ultrasound Next Visit Focus/Plan Next Note Type Treatment Note Next Visit Plan REcheck HEP added side ABD, ER POC: Increasing AROM, strengthening and stretching
--- NOTE | 2022-09-22 12:59 | PT.OTN ---
Current Diagnoses Pain in left shoulder (09/22/22) Stiffness of left shoulder, not elsewhere classified (09/22/22) Impingement syndrome of left shoulder (09/22/22) Encounter for other specified surgical aftercare (09/22/22) Physical Therapy Treatment Note PT-OP-A Visit Information Start: 05/03/22 14:19 Freq: Status: Active Protocol: Document 09/22/22 12:17 DCW (Rec: 09/22/22 12:59 DCW [id number]) Out-Patient Physical Therapy Visit Information Visit Information Visit Type Treatment Note Visit Note Manipulation under anesthesia, debridement 08/07/22 Visit Start Time 12:17 Visit Stop Time 13:00 Total Visit Minutes 43 Visit Number 20 Number of LOADING UNIT TOOL SETTER Visits 0 Evaluation Information Evaluation Date 05/03/22 PT-OP-B Current Condition Start: 05/03/22 14:19 Freq: Status: Active Protocol: Document 09/06/22 12:00 DCW (Rec: 09/06/22 14:16 DCW [id number]) Current Condition History of Current Condition Onset Date 04/24/22; 08/07/22 Current Complaints s/p left shoulder arthroscopic r/c debridement /c biceps repair History of Current Condition Pt is a 52 year old male with a long-standing history of bilateral shoulder pain presenting 9 days s/p left shoulder arthroscopic rotator cuff debridement with biceps repair. Per Dr Ortiz post-op protocol, pt currently in phase 1. Pt to continue using sling until two weeks post-op. Pt severely restricted with functional use of his left arm at ths moment, only has gotten out of sling for brief periods while sitting in his chair. Pt notes he lives with his mother, and needs to do most of the work around the house, but has obviously not been able to since surgery. ADDENDUM 09/06/22: Pt returns to skilled PT four weeks s/p manipulation under anesthesia and a second debridement following a plateau in progress after initial surgery . Surgical note reports there was extensive debridement performed. Pt reports he was told to continue to work on ROM, don't lift anything heavy, and that he was not required to wear a brace this time. Pt has been independently working on wall stretching, pendulums, and just keeping it moving and carrying things around. Notes he feels a lot better now than he had been following his first surgery, believes both and pain and mobility has improved since pre- manipulation. Treatment Goals Patient/Caregiver Goals I want complete use of my left arm back. Notes it would also be nice to be able to sleep on his left side. PT-OP-C Subjective Start: 05/03/22 14:19 Freq: Status: Active Protocol: Document 09/22/22 12:17 DCW (Rec: 09/22/22 12:59 DCW [id number]) OP-PT Subjective Patient Comments Patient Comments I kind of screwed it up after I left here last time, I went home and used the weekwacker, so it's been a little more sore the past few days. PT-OP-F Manual Assessment Start: 05/03/22 14:19 Freq: Status: Active Protocol: Document 09/06/22 12:00 DCW (Rec: 09/06/22 14:16 DCW [id number]) Manual Assessments Joint Mobility Assessment Joint Mobility Assessment Left GH joint mobility moderately limited secondary to post-op stiffness PT-OP-K Range of Motion Start: 05/03/22 14:19 Freq: Status: Active Protocol: Document 09/06/22 12:00 DCW (Rec: 09/06/22 14:16 DCW [id number]) Shoulder Goniometric Range of Motion Shoulder Left Active Shoulder ROM WFL No Testing Position Sitting Flexion 101 Abduction 92 External Rotation at 0 degrees Abduction 70 Left Passive Shoulder ROM WFL No Testing Position Sitting Flexion 113 Abduction 103 External Rotation at 0 degrees Abduction 65 Shoulder ROM Limitations Shoulder ROM Limitations Muscle Weakness,Muscle Tone, Pain PT-OP-M Strength Start: 05/03/22 14:19 Freq: Status: Active Protocol: Document 09/06/22 12:00 DCW (Rec: 09/06/22 14:16 DCW [id number]) Shoulder Strength Shoulder Manual Muscle Testing Left Flexion 3- Fair- Abduction (C5) 3- Fair- External Rotation 4- Good- Internal Rotation 4- Good- PT-OP-Q Treatments Start: 05/03/22 14:19 Freq: Status: Active Protocol: Document 09/22/22 12:17 DCW (Rec: 09/22/22 12:59 DCW [id number]) Therapeutic Exercises Sitting Exercises Pulleys Sitting Exercise Name Javi - GH flexion, ABD, Scaption Side left Standing Exercises Adduction Standing Exercise Name Shoulder Adduction Side left Resistance Green T-band Reps/Minutes x20 Comments good form, painfree Extension Standing Exercise Name Shoulder Extension Side left Resistance Green T-band Reps/Minutes x20 Comments good form, painfree Wall Stretch Standing Exercise Name wall walking FF, ABD Side left Equipment Used wall, green ball on wall Reps/Minutes 5 reps each- Comments cued no UT, stop breath before progress further Abduction Standing Exercise Name Shoulder Abduction Side bilateral Resistance 4# Comments Pain-free ROM, Mirror to limit UT compensation Flexion Standing Exercise Name Shoulder Flexion Side bilateral Resistance 4# Comments Pain-free ROM, Mirror to limit UT compensation Biceps Curls Standing Exercise Name Biceps Curls Side left Resistance 4# Reps/Minutes x10 Other Exercises Resisted Ambulation Other Exercise Name Resisted UE side-stepping Side bilateral Resistance Yellow Reps/Minutes 4x20ft ea Manual Therapy Treatment Soft Tissue Mobilization L shoulder Body Location L biceps, deltoid, UT, LS, rhomboid Mobilization Type Rolling,Sustained Pressure, Trigger Point Release Intensity/Depth Moderate Body Position Sidelying Comments gentle pain-free PROM L sheila abduction approx 120 deg Joint Mobilizations L GH Jt Joint L Direction inferior, posterior Grade II Body Position Hooklying Comments manual. Other Other Manual Treatments PT-driven PROM of left shoulder - flexion, abduction, ER, horizontal adduction, circumduction in pain-free ROM . PT-OP-T Assessment and Plan Start: 05/03/22 14:19 Freq: Status: Active Protocol: Document 09/22/22 12:17 DCW (Rec: 09/22/22 12:59 DCW [id number]) Physical Therapy Assessment Impairments Impairments Activity Tolerance,Functional Activities,Functional Mobility ,Pain,ROM,Soft Tissue Mobility ,Strength,Tone Goals Two Impairment Severely limited ROM due to pain and post-op protocol [employer] Engineer Goal (LTG) Pt to show increased left shoulder flexion and abduction to at least 120? 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 LTG Duration 11/06/22 - improving One Impairment Pt does not have an appropriate home exercise program Short Term Goal (STG) Pt to be independent and compliant with an appropriate HEP STG Duration 10/07/22 - improving Assessment Summary Assessment Pt continues to show very good progress following manipulation, responds well to verbal cues regarding [place] compensation. Doing well with increased pain-free ROM. Physical Therapy Plan Frequency and Duration Frequency of Treatment 2x/Week Plan of Care Start Date 09/06/22 Plan of Care End Date 11/06/22 Therapeutic Interventions Therapeutic Interventions Home Exercise Program,Joint Mobilizations,Manual Therapy, Patient/Caregiver Education, Self-Care/Home Management,Soft Tissue Mobilization,Taping, Therapeutic Activities, Therapeutic Exercises Modalities Cold Pack/Ice Massage,Electric Stimulation,Hot Packs, Ultrasound Next Visit Focus/Plan Next Note Type Treatment Note Next Visit Plan REcheck HEP added side ABD, ER POC: Increasing AROM, strengthening and stretching
--- NOTE | 2022-09-25 15:12 | PT.OTN ---
Current Diagnoses Pain in left shoulder (09/25/22) Stiffness of left shoulder, not elsewhere classified (09/25/22) Impingement syndrome of left shoulder (09/25/22) Encounter for other specified surgical aftercare (09/25/22) Physical Therapy Treatment Note PT-OP-A Visit Information Start: 05/03/22 14:19 Freq: Status: Active Protocol: Document 09/25/22 14:32 SP (Rec: 09/25/22 15:19 SP [id number]) Out-Patient Physical Therapy Visit Information Visit Information Visit Type Treatment Note Visit Note Manipulation under anesthesia, debridement 08/07/22 MAKSIM Joshi observed tx with permission of pt and MAKSIM Garcia. Visit Start Time 14:32 Visit Stop Time 15:12 Total Visit Minutes 40 Visit Number 21 Number of GOVERNMENT DOCUMENTS LIBRARIAN Visits 1 PT-OP-B Current Condition Start: 05/03/22 14:19 Freq: Status: Active Protocol: Document 09/06/22 12:00 DCW (Rec: 09/06/22 14:16 DCW [id number]) Current Condition History of Current Condition Onset Date 04/24/22; 08/07/22 Current Complaints s/p left shoulder arthroscopic r/c debridement /c biceps repair History of Current Condition Pt is a 52 year old male with a long-standing history of bilateral shoulder pain presenting 9 days s/p left shoulder arthroscopic rotator cuff debridement with biceps repair. Per Dr Ortiz post-op protocol, pt currently in phase 1. Pt to continue using sling until two weeks post-op. Pt severely restricted with functional use of his left arm at ths moment, only has gotten out of sling for brief periods while sitting in his chair. Pt notes he lives with his mother, and needs to do most of the work around the house, but has obviously not been able to since surgery. ADDENDUM 09/06/22: Pt returns to skilled PT four weeks s/p manipulation under anesthesia and a second debridement following a plateau in progress after initial surgery . Surgical note reports there was extensive debridement performed. Pt reports he was told to continue to work on ROM, don't lift anything heavy, and that he was not required to wear a brace this time. Pt has been independently working on wall stretching, pendulums, and just keeping it moving and carrying things around. Notes he feels a lot better now than he had been following his first surgery, believes both and pain and mobility has improved since pre- manipulation. Treatment Goals Patient/Caregiver Goals I want complete use of my left arm back. Notes it would also be nice to be able to sleep on his left side. PT-OP-C Subjective Start: 05/03/22 14:19 Freq: Status: Active Protocol: Document 09/25/22 14:32 SP (Rec: 09/25/22 15:19 SP [id number]) OP-PT Subjective Patient Comments Patient Comments Pt reports pain over L deltoid . Was able to sleep on left side last night. PT-OP-F Manual Assessment Start: 05/03/22 14:19 Freq: Status: Active Protocol: Document 09/06/22 12:00 DCW (Rec: 09/06/22 14:16 DCW [id number]) Manual Assessments Joint Mobility Assessment Joint Mobility Assessment Left GH joint mobility moderately limited secondary to post-op stiffness PT-OP-K Range of Motion Start: 05/03/22 14:19 Freq: Status: Active Protocol: Document 09/06/22 12:00 DCW (Rec: 09/06/22 14:16 DCW [id number]) Shoulder Goniometric Range of Motion Shoulder Left Active Shoulder ROM WFL No Testing Position Sitting Flexion 101 Abduction 92 External Rotation at 0 degrees Abduction 70 Left Passive Shoulder ROM WFL No Testing Position Sitting Flexion 113 Abduction 103 External Rotation at 0 degrees Abduction 65 Shoulder ROM Limitations Shoulder ROM Limitations Muscle Weakness,Muscle Tone, Pain PT-OP-M Strength Start: 05/03/22 14:19 Freq: Status: Active Protocol: Document 09/06/22 12:00 DCW (Rec: 09/06/22 14:16 DCW [id number]) Shoulder Strength Shoulder Manual Muscle Testing Left Flexion 3- Fair- Abduction (C5) 3- Fair- External Rotation 4- Good- Internal Rotation 4- Good- PT-OP-Q Treatments Start: 05/03/22 14:19 Freq: Status: Active Protocol: Document 09/25/22 14:32 SP (Rec: 09/25/22 15:19 SP [id number]) Therapeutic Exercises Sitting Exercises eccentric flexion Sitting Exercise Name eccentric flexion & abd- added toHEP Side left Resistance peach band Reps/Minutes x20 FF, 10 ABD Comments cued for straight elbow Standing Exercises wall push ups Standing Exercise Name wall push ups Equipment Used wall Reps/Minutes x10 internal rotation Standing Exercise Name internal rotation stretch- HEP reviewed Equipment Used towel Comments cued level shoulders, hold for a couple breaths Adduction Standing Exercise Name Shoulder Adduction- HEP reviewed Side left Resistance [place] T-band Reps/Minutes x12 Comments good form, painfree Extension Standing Exercise Name Shoulder Extension Side bilateral Resistance [place] T-band Reps/Minutes x12 Comments good form, painfree Wall Stretch Standing Exercise Name wall walking FF, ABD, pec stretch Side left Equipment Used wall Reps/Minutes 5 reps each- Comments cued no UT ER/IR Standing Exercise Name ER/IR- HEPreviewed Side left Resistance Lv 1 peach Equipment Used towel roll under arm Reps/Minutes x15 each Comments good form with towel placement Pendulums Standing Exercise Name Pendulums- warm up post manual Side left Reps/Minutes 1 min Comments multidirectional Manual Therapy Treatment Soft Tissue Mobilization L shoulder Body Location UT, LS, rhomboids, infraspinatus Mobilization Type Rolling,Sustained Pressure, Trigger Point Release Intensity/Depth Moderate Body Position Sidelying Comments gentle pain-free PROM L sheila abduction approx 120 deg Joint Mobilizations L GH Jt Joint L Direction inferior w/abduction Grade II Body Position Hooklying Comments manual. ST Joint L scapulothoracic Direction upwards/downwards rotation, elevation/depression, protraction/retraction Grade II Body Position Sidelying Manual Techniques PROM Type L shld: FF, ABD, ER Comments manual PT-OP-T Assessment and Plan Start: 05/03/22 14:19 Freq: Status: Active Protocol: Document 09/25/22 14:32 SP (Rec: 09/25/22 15:19 SP [id number]) Physical Therapy Assessment Goals Two Impairment Severely limited ROM due to pain and post-op protocol [facility] Goal (LTG) Pt to show increased left shoulder flexion and abduction to at least 120? 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 LTG Duration 11/06/22 - improving One Impairment Pt does not have an appropriate home exercise program Short Term Goal (STG) Pt to be independent and compliant with an appropriate HEP STG Duration 10/07/22 - improving Assessment Summary Assessment Pt responded well to manual, improved self corrections scap retraction/depression carryover with added resisted eccentric ff, abd painfree. No adverse response to wall pushup. Physical Therapy Plan Frequency and Duration Frequency of Treatment 2x/Week Plan of Care Start Date 09/06/22 Plan of Care End Date 11/06/22 Therapeutic Interventions Therapeutic Interventions Home Exercise Program,Joint Mobilizations,Manual Therapy, Patient/Caregiver Education, Self-Care/Home Management,Soft Tissue Mobilization,Taping, Therapeutic Activities, Therapeutic Exercises Modalities Cold Pack/Ice Massage,Electric Stimulation,Hot Packs, Ultrasound Next Visit Focus/Plan Next Note Type Treatment Note Next Visit Plan REcheck HEP added side ABD, ER , eccentric seated flexion/abd . POC: Increasing AROM, strengthening and stretching
--- NOTE | 2022-09-28 13:30 | PT.OTN ---
Current Diagnoses Pain in left shoulder (09/28/22) Stiffness of left shoulder, not elsewhere classified (09/28/22) Impingement syndrome of left shoulder (09/28/22) Encounter for other specified surgical aftercare (09/28/22) Physical Therapy Treatment Note PT-OP-A Visit Information Start: 05/03/22 14:19 Freq: Status: Active Protocol: Document 09/28/22 12:48 SP (Rec: 09/28/22 13:34 SP [id number]) Out-Patient Physical Therapy Visit Information Visit Information Visit Type Treatment Note Visit Note Manipulation under anesthesia, debridement 08/07/22 Visit Start Time 12:48 Visit Stop Time 13:30 Total Visit Minutes 42 Visit Number 22 Number of COVERED BUTTON MAKER Visits 2 Evaluation Information Evaluation Date 05/03/22 Precautions Precautions Phase I protocol: Sling (0-2 weeks) Scapular and GH Mobilization Pendulums/Cane/Javi Isometrics in all directions Biceps/Triceps exercises Modalities PRN PT-OP-B Current Condition Start: 05/03/22 14:19 Freq: Status: Active Protocol: Document 09/06/22 12:00 DCW (Rec: 09/06/22 14:16 DCW [id number]) Current Condition History of Current Condition Onset Date 04/24/22; 08/07/22 Current Complaints s/p left shoulder arthroscopic r/c debridement /c biceps repair History of Current Condition Pt is a 52 year old male with a long-standing history of bilateral shoulder pain presenting 9 days s/p left shoulder arthroscopic rotator cuff debridement with biceps repair. Per Dr Ortiz post-op protocol, pt currently in phase 1. Pt to continue using sling until two weeks post-op. Pt severely restricted with functional use of his left arm at ths moment, only has gotten out of sling for brief periods while sitting in his chair. Pt notes he lives with his mother, and needs to do most of the work around the house, but has obviously not been able to since surgery. ADDENDUM 09/06/22: Pt returns to skilled PT four weeks s/p manipulation under anesthesia and a second debridement following a plateau in progress after initial surgery . Surgical note reports there was extensive debridement performed. Pt reports he was told to continue to work on ROM, don't lift anything heavy, and that he was not required to wear a brace this time. Pt has been independently working on wall stretching, pendulums, and just keeping it moving and carrying things around. Notes he feels a lot better now than he had been following his first surgery, believes both and pain and mobility has improved since pre- manipulation. Treatment Goals Patient/Caregiver Goals I want complete use of my left arm back. Notes it would also be nice to be able to sleep on his left side. PT-OP-C Subjective Start: 05/03/22 14:19 Freq: Status: Active Protocol: Document 09/28/22 12:48 SP (Rec: 09/28/22 13:34 SP [id number]) OP-PT Subjective Patient Comments Patient Comments Pt reports 6/10 arrival pain over L deltoid, at night was a 9/10 expeciall when reaches out to side and trying to lift higher into ABD. Uses pillow under PT-OP-F Manual Assessment Start: 05/03/22 14:19 Freq: Status: Active Protocol: Document 09/06/22 12:00 DCW (Rec: 09/06/22 14:16 DCW [id number]) Manual Assessments Joint Mobility Assessment Joint Mobility Assessment Left GH joint mobility moderately limited secondary to post-op stiffness PT-OP-K Range of Motion Start: 05/03/22 14:19 Freq: Status: Active Protocol: Document 09/06/22 12:00 DCW (Rec: 09/06/22 14:16 DCW [id number]) Shoulder Goniometric Range of Motion Shoulder Left Active Shoulder ROM WFL No Testing Position Sitting Flexion 101 Abduction 92 External Rotation at 0 degrees Abduction 70 Left Passive Shoulder ROM WFL No Testing Position Sitting Flexion 113 Abduction 103 External Rotation at 0 degrees Abduction 65 Shoulder ROM Limitations Shoulder ROM Limitations Muscle Weakness,Muscle Tone, Pain PT-OP-M Strength Start: 05/03/22 14:19 Freq: Status: Active Protocol: Document 09/06/22 12:00 DCW (Rec: 09/06/22 14:16 DCW [id number]) Shoulder Strength Shoulder Manual Muscle Testing Left Flexion 3- Fair- Abduction (C5) 3- Fair- External Rotation 4- Good- Internal Rotation 4- Good- PT-OP-Q Treatments Start: 05/03/22 14:19 Freq: Status: Active Protocol: Document 09/28/22 12:48 SP (Rec: 09/28/22 13:34 SP [id number]) Therapeutic Exercises Prone Exercises Is, Ys Prone Exercise Name Added to HEP: Is, Ys, hold Ts 2* pain 09/28 Side left Resistance AROM Reps/Minutes x5 reps Comments cued scap glide painfree range Sidelying Exercises ER Sidelying Exercise Name reviewed HEP Side left Resistance AROM Equipment Used towel roll under arm Reps/Minutes x10 Comments cued slow painfree range ABD Sidelying Exercise Name reviewed HEP Side left Resistance AROM Reps/Minutes x8 reps Comments cued slow painfree range therapist occasional scap dwn rot fac support Standing Exercises ER/IR Standing Exercise Name ER /IR- HEP reviewed Side left Resistance Lv 1>2 orange ER, 3 IR green Equipment Used towel roll under arm Reps/Minutes x15 each Comments good form with towel placement Manual Therapy Treatment Soft Tissue Mobilization L shoulder Body Location Infrasp, deltoid, pec, distal lat Mobilization Type Rolling,Sustained Pressure, Trigger Point Release Intensity/Depth Moderate Body Position Sidelying Comments gentle pain-free Joint Mobilizations L GH Jt Joint L Direction inferior w/abduction and scapular down rotation Grade II Body Position Hooklying Comments manual PT-OP-T Assessment and Plan Start: 05/03/22 14:19 Freq: Status: Active Protocol: Document 09/28/22 12:48 SP (Rec: 09/28/22 13:34 SP [id number]) Physical Therapy Assessment Goals Two Impairment Severely limited ROM due to pain and post-op protocol Halfway Goal (LTG) Pt to show increased left shoulder flexion and abduction to at least 120? to exhibit beginning of return to post-op functional mobility and improve ability for him to help with hose builder. LTG Duration 11/06/22 - improving One Impairment Pt does not have an appropriate home exercise program Short Term Goal (STG) Pt to be independent and compliant with an appropriate HEP 09/28/22: HEP side ABD, ER, standing TB rows, ext, IR/ER, added prone Is and Ys. STG Duration 10/07/22 - improving 09/28/22 Assessment Summary Assessment Pt responsed well to manual, no pain with side abd, occasion contact and verbal cues for scapular down rotation fac and pain free range. Initiated prone LUE ext (Is) and scaption (Ys) with no pain, cued mindful painfree range to progress OH tolerant positioning Physical Therapy Plan Frequency and Duration Frequency of Treatment 2x/Week Plan of Care Start Date 09/06/22 Plan of Care End Date 11/06/22 Therapeutic Interventions Therapeutic Interventions Home Exercise Program,Joint Mobilizations,Manual Therapy, Patient/Caregiver Education, Self-Care/Home Management,Soft Tissue Mobilization,Taping, Therapeutic Activities, Therapeutic Exercises Modalities Cold Pack/Ice Massage,Electric Stimulation,Hot Packs, Ultrasound Next Visit Focus/Plan Next Note Type Treatment Note Next Visit Plan REcheck HEP added prone Is/Ys. POC: Increasing AROM, strengthening and stretching
--- NOTE | 2022-10-03 15:30 | PT.OTN ---
Current Diagnoses Pain in left shoulder (10/03/22) Stiffness of left shoulder, not elsewhere classified (10/03/22) Impingement syndrome of left shoulder (10/03/22) Encounter for other specified surgical aftercare (10/03/22) Physical Therapy Treatment Note PT-OP-A Visit Information Start: 05/03/22 14:19 Freq: Status: Active Protocol: Document 10/03/22 14:49 DCW (Rec: 10/03/22 15:30 DCW [id number]) Out-Patient Physical Therapy Visit Information Visit Information Visit Type Treatment Note Visit Note Manipulation under anesthesia, debridement 08/07/22 Visit Start Time 14:49 Visit Stop Time 15:30 Total Visit Minutes 41 Visit Number 23 Number of CHIEF OF PLANNING Visits 0 Evaluation Information Evaluation Date 05/03/22 Precautions Precautions Phase I protocol: Sling (0-2 weeks) Scapular and GH Mobilization Pendulums/Cane/Javi Isometrics in all directions Biceps/Triceps exercises Modalities PRN PT-OP-B Current Condition Start: 05/03/22 14:19 Freq: Status: Active Protocol: Document 09/06/22 12:00 DCW (Rec: 09/06/22 14:16 DCW [id number]) Current Condition History of Current Condition Onset Date 04/24/22; 08/07/22 Current Complaints s/p left shoulder arthroscopic r/c debridement /c biceps repair History of Current Condition Pt is a 52 year old male with a long-standing history of bilateral shoulder pain presenting 9 days s/p left shoulder arthroscopic rotator cuff debridement with biceps repair. Per Dr Ortiz post-op protocol, pt currently in phase 1. Pt to continue using sling until two weeks post-op. Pt severely restricted with functional use of his left arm at ths moment, only has gotten out of sling for brief periods while sitting in his chair. Pt notes he lives with his mother, and needs to do most of the work around the house, but has obviously not been able to since surgery. ADDENDUM 09/06/22: Pt returns to skilled PT four weeks s/p manipulation under anesthesia and a second debridement following a plateau in progress after initial surgery . Surgical note reports there was extensive debridement performed. Pt reports he was told to continue to work on ROM, don't lift anything heavy, and that he was not required to wear a brace this time. Pt has been independently working on wall stretching, pendulums, and just keeping it moving and carrying things around. Notes he feels a lot better now than he had been following his first surgery, believes both and pain and mobility has improved since pre- manipulation. Treatment Goals Patient/Caregiver Goals I want complete use of my left arm back. Notes it would also be nice to be able to sleep on his left side. PT-OP-C Subjective Start: 05/03/22 14:19 Freq: Status: Active Protocol: Document 10/03/22 14:49 DCW (Rec: 10/03/22 15:30 DCW [id number]) OP-PT Subjective Patient Comments Patient Comments Pt reports his shoulder isn't too bad right now. PT-OP-F Manual Assessment Start: 05/03/22 14:19 Freq: Status: Active Protocol: Document 09/06/22 12:00 DCW (Rec: 09/06/22 14:16 DCW [id number]) Manual Assessments Joint Mobility Assessment Joint Mobility Assessment Left GH joint mobility moderately limited secondary to post-op stiffness PT-OP-K Range of Motion Start: 05/03/22 14:19 Freq: Status: Active Protocol: Document 09/06/22 12:00 DCW (Rec: 09/06/22 14:16 DCW [id number]) Shoulder Goniometric Range of Motion Shoulder Left Active Shoulder ROM WFL No Testing Position Sitting Flexion 101 Abduction 92 External Rotation at 0 degrees Abduction 70 Left Passive Shoulder ROM WFL No Testing Position Sitting Flexion 113 Abduction 103 External Rotation at 0 degrees Abduction 65 Shoulder ROM Limitations Shoulder ROM Limitations Muscle Weakness,Muscle Tone, Pain PT-OP-M Strength Start: 05/03/22 14:19 Freq: Status: Active Protocol: Document 09/06/22 12:00 DCW (Rec: 09/06/22 14:16 DCW [id number]) Shoulder Strength Shoulder Manual Muscle Testing Left Flexion 3- Fair- Abduction (C5) 3- Fair- External Rotation 4- Good- Internal Rotation 4- Good- PT-OP-Q Treatments Start: 05/03/22 14:19 Freq: Status: Active Protocol: Document 10/03/22 14:49 DCW (Rec: 10/03/22 15:30 DCW [id number]) Therapeutic Exercises Sitting Exercises Pulleys Sitting Exercise Name Javi - GH flexion, ABD, Scaption Side bilateral Standing Exercises wall push ups Standing Exercise Name wall push ups Equipment Used wall Reps/Minutes x10 Adduction Standing Exercise Name Shoulder Adduction Side left Resistance Green T-band Reps/Minutes x12 Comments good form, painfree Extension Standing Exercise Name Shoulder Extension Side bilateral Resistance Green T-band Reps/Minutes x12 Comments good form, painfree Wall Stretch Standing Exercise Name wall walking FF, ABD, pec stretch Side left Equipment Used wall Reps/Minutes 5 reps each- Comments cued no UT Abduction Standing Exercise Name Shoulder Abduction Side bilateral Resistance 4# Comments Pain-free ROM, Mirror to limit UT compensation Flexion Standing Exercise Name Shoulder Flexion Side bilateral Resistance 4# Comments Pain-free ROM, Mirror to limit UT compensation Manual Therapy Treatment Soft Tissue Mobilization L shoulder Body Location UT, LS, rhomboids, infraspinatus Mobilization Type Rolling,Sustained Pressure, Trigger Point Release Intensity/Depth Moderate Body Position Sidelying Comments gentle pain-free PROM L sheila abduction approx 120 deg Joint Mobilizations L GH Jt Joint L Direction inferior w/abduction Grade II Body Position Hooklying Comments manual. ST Joint L scapulothoracic Direction upwards/downwards rotation, elevation/depression, protraction/retraction Grade II Body Position Sidelying Manual Techniques PROM Type L shld: FF, ABD, ER Comments manual PT-OP-T Assessment and Plan Start: 05/03/22 14:19 Freq: Status: Active Protocol: Document 10/03/22 14:49 DCW (Rec: 10/03/22 15:30 DCW [id number]) Physical Therapy Assessment Impairments Impairments Activity Tolerance,Functional Activities,Functional Mobility ,Pain,ROM,Soft Tissue Mobility ,Strength,Tone Goals Two Impairment Severely limited ROM due to pain and post-op protocol Regional Sales Director Goal (LTG) Pt to show increased left shoulder flexion and abduction to at least 120? to exhibit beginning of return to post-op functional mobility and improve ability for him to help with fitness centre manager. LTG Duration 11/06/22 - improving One Impairment Pt does not have an appropriate home exercise program Short Term Goal (STG) Pt to be independent and compliant with an appropriate HEP 09/28/22: HEP side ABD, ER, standing TB rows, ext, IR/ER, added prone Is and Ys. STG Duration 10/07/22 - improving 09/28/22 Assessment Summary Assessment Pt happy that he was able to do his exercises today without any popping in his shoulder, notes he had been noticing it a lot recently. Notes no pain while at rest. Physical Therapy Plan Frequency and Duration Frequency of Treatment 2x/Week Plan of Care Start Date 09/06/22 Plan of Care End Date 11/06/22 Therapeutic Interventions Therapeutic Interventions Home Exercise Program,Joint Mobilizations,Manual Therapy, Patient/Caregiver Education, Self-Care/Home Management,Soft Tissue Mobilization,Taping, Therapeutic Activities, Therapeutic Exercises Modalities Cold Pack/Ice Massage,Electric Stimulation,Hot Packs, Ultrasound Next Visit Focus/Plan Next Note Type Treatment Note Next Visit Plan Recheck HEP added prone Is/Ys. POC: Increasing AROM, strengthening and stretching
--- NOTE | 2022-10-06 13:30 | PT.OTN ---
Current Diagnoses Pain in left shoulder (10/06/22) Stiffness of left shoulder, not elsewhere classified (10/06/22) Impingement syndrome of left shoulder (10/06/22) Encounter for other specified surgical aftercare (10/06/22) Physical Therapy Treatment Note PT-OP-A Visit Information Start: 05/03/22 14:19 Freq: Status: Active Protocol: Document 10/06/22 12:50 SP (Rec: 10/06/22 13:34 SP [id number]) Out-Patient Physical Therapy Visit Information Visit Information Visit Type Treatment Note Visit Note Manipulation under anesthesia, debridement 08/07/22 Visit Start Time 12:50 Visit Stop Time 13:30 Total Visit Minutes 40 Visit Number 24 Number of SERVICE PARTS COORDINATOR Visits 1 Evaluation Information Evaluation Date 05/03/22 Precautions Precautions Phase I protocol: Sling (0-2 weeks) Scapular and GH Mobilization Pendulums/Cane/Javi Isometrics in all directions Biceps/Triceps exercises Modalities PRN PT-OP-B Current Condition Start: 05/03/22 14:19 Freq: Status: Active Protocol: Document 09/06/22 12:00 DCW (Rec: 09/06/22 14:16 DCW [id number]) Current Condition History of Current Condition Onset Date 04/24/22; 08/07/22 Current Complaints s/p left shoulder arthroscopic r/c debridement /c biceps repair History of Current Condition Pt is a 52 year old male with a long-standing history of bilateral shoulder pain presenting 9 days s/p left shoulder arthroscopic rotator cuff debridement with biceps repair. Per Dr Ortiz post-op protocol, pt currently in phase 1. Pt to continue using sling until two weeks post-op. Pt severely restricted with functional use of his left arm at ths moment, only has gotten out of sling for brief periods while sitting in his chair. Pt notes he lives with his mother, and needs to do most of the work around the house, but has obviously not been able to since surgery. ADDENDUM 09/06/22: Pt returns to skilled PT four weeks s/p manipulation under anesthesia and a second debridement following a plateau in progress after initial surgery . Surgical note reports there was extensive debridement performed. Pt reports he was told to continue to work on ROM, don't lift anything heavy, and that he was not required to wear a brace this time. Pt has been independently working on wall stretching, pendulums, and just keeping it moving and carrying things around. Notes he feels a lot better now than he had been following his first surgery, believes both and pain and mobility has improved since pre- manipulation. Treatment Goals Patient/Caregiver Goals I want complete use of my left arm back. Notes it would also be nice to be able to sleep on his left side. PT-OP-C Subjective Start: 05/03/22 14:19 Freq: Status: Active Protocol: Document 10/06/22 12:50 SP (Rec: 10/06/22 13:34 SP [id number]) OP-PT Subjective Patient Comments Patient Comments Pt reports found out why had so much pain, propping arm up on pillow when sleeping. Has gone away. Now just little annoying discomfort with HEP. PT-OP-F Manual Assessment Start: 05/03/22 14:19 Freq: Status: Active Protocol: Document 09/06/22 12:00 DCW (Rec: 09/06/22 14:16 DCW [id number]) Manual Assessments Joint Mobility Assessment Joint Mobility Assessment Left GH joint mobility moderately limited secondary to post-op stiffness PT-OP-K Range of Motion Start: 05/03/22 14:19 Freq: Status: Active Protocol: Document 09/06/22 12:00 DCW (Rec: 09/06/22 14:16 DCW [id number]) Shoulder Goniometric Range of Motion Shoulder Left Active Shoulder ROM WFL No Testing Position Sitting Flexion 101 Abduction 92 External Rotation at 0 degrees Abduction 70 Left Passive Shoulder ROM WFL No Testing Position Sitting Flexion 113 Abduction 103 External Rotation at 0 degrees Abduction 65 Shoulder ROM Limitations Shoulder ROM Limitations Muscle Weakness,Muscle Tone, Pain PT-OP-M Strength Start: 05/03/22 14:19 Freq: Status: Active Protocol: Document 09/06/22 12:00 DCW (Rec: 09/06/22 14:16 DCW [id number]) Shoulder Strength Shoulder Manual Muscle Testing Left Flexion 3- Fair- Abduction (C5) 3- Fair- External Rotation 4- Good- Internal Rotation 4- Good- PT-OP-Q Treatments Start: 05/03/22 14:19 Freq: Status: Active Protocol: Document 10/06/22 12:50 SP (Rec: 10/06/22 13:34 SP [id number]) Therapeutic Exercises Supine Exercises chest press Supine Exercise Name reviewed for safety home Side bilateral Resistance 10# DB Reps/Minutes x10 Comments ok close chain elbows at side. Prone Exercises Is, Ys Prone Exercise Name Added to HEP: Is, Ys, hold Ts Side left Resistance AROM Ts, Is #2 DB, Ys Reps/Minutes x10 reps each Comments cued scap glide painfree range Sitting Exercises Pulleys Sitting Exercise Name Javi - GH flexion, ABD, Scaption Side bilateral Reps/Minutes x15 each Comments cued slow controlled mov't Standing Exercises body blade Standing Exercise Name initiated inPT: fwd punch, IR/ ER, OH punch, down punch Side left Reps/Minutes 30 each direction Comments cued shld stab, good feedback tiring/ painfree wall push ups Standing Exercise Name wall push ups Equipment Used wall Reps/Minutes x10 Comments good form Adduction Standing Exercise Name Shoulder Adduction Side left Resistance Green T-band Reps/Minutes x12 Comments good form, painfree Wall Stretch Standing Exercise Name wall walking FF, ABD Side left Equipment Used wall, mirror for self feedback corrections Reps/Minutes 5 reps each- Comments cued no UT Abduction Standing Exercise Name Shoulder Abduction- Hold Side bilateral Resistance DTb and DB Comments challenge unable AROM without compensation Flexion Standing Exercise Name Shoulder Flexion Side bilateral Resistance 2# DB Equipment Used mirror Reps/Minutes x10 reps- some UT recruitment last 2 reps Comments Pain-free ROM, Mirror to limit UT compensation Manual Therapy Treatment Soft Tissue Mobilization L shoulder Body Location Pec, deltoid, lat, infraspinatus, suprasp Mobilization Type Rolling,Sustained Pressure, Trigger Point Release Intensity/Depth Moderate Body Position Sidelying Comments gentle and MWM FF Joint Mobilizations L GH Jt Joint L Direction inferior w/abduction Grade II Body Position Hooklying Comments manual. Manual Techniques PROM Type L shld: FF, ABD Comments manual PT-OP-T Assessment and Plan Start: 05/03/22 14:19 Freq: Status: Active Protocol: Document 10/06/22 12:50 SP (Rec: 10/06/22 13:34 SP [id number]) Physical Therapy Assessment Goals Two Impairment Severely limited ROM due to pain and post-op protocol Nursing Home Goal (LTG) Pt to show increased left shoulder flexion and abduction to at least 120? to exhibit beginning of return to post-op functional mobility and improve ability for him to help with zinc plate cutter. LTG Duration 11/06/22 - improving One Impairment Pt does not have an appropriate home exercise program Short Term Goal (STG) Pt to be independent and compliant with an appropriate HEP 09/28/22: HEP side ABD, ER, standing TB rows, ext, IR/ER, added prone Is and Ys. STG Duration 10/07/22 - improving 09/28/22 Assessment Summary Assessment Pt good response to ther ex today, able to add resistance to prone Is and chest press trial progress return use of bench and bar at home with good tiring reports and understanding education on close chain UE positioning at this time. Initiated rhythmic stabilization body blade painfree LUE with good tiring response. He improves self correction decrease UT recruitment with use mirror. Physical Therapy Plan Frequency and Duration Frequency of Treatment 2x/Week Plan of Care Start Date 09/06/22 Plan of Care End Date 11/06/22 Therapeutic Interventions Therapeutic Interventions Home Exercise Program,Joint Mobilizations,Manual Therapy, Patient/Caregiver Education, Self-Care/Home Management,Soft Tissue Mobilization,Taping, Therapeutic Activities, Therapeutic Exercises Modalities Cold Pack/Ice Massage,Electric Stimulation,Hot Packs, Ultrasound Next Visit Focus/Plan Next Note Type Treatment Note Next Visit Plan Recheck gym ext for bench press, bicep curl. POC: Increasing AROM, strengthening and stretching
--- NOTE | 2022-10-09 12:45 | PT.OTN ---
Current Diagnoses Pain in left shoulder (10/09/22) Stiffness of left shoulder, not elsewhere classified (10/09/22) Impingement syndrome of left shoulder (10/09/22) Encounter for other specified surgical aftercare (10/09/22) Physical Therapy Treatment Note PT-OP-A Visit Information Start: 05/03/22 14:19 Freq: Status: Active Protocol: Document 10/09/22 12:01 SP (Rec: 10/09/22 12:49 SP [id number]) Out-Patient Physical Therapy Visit Information Visit Information Visit Type Treatment Note Visit Note Manipulation under anesthesia, debridement 08/07/22 10/09/22: MAKSIM Joshi provided ther ex instruction while under direct supervision and guidence as needed of BAG MAKING MACHINE TENDER Radha. Visit Start Time 12:01 Visit Stop Time 12:45 Total Visit Minutes 44 Visit Number 25 Number of BAG MAKING MACHINE TENDER Visits 2 Evaluation Information Evaluation Date 05/03/22 Precautions Precautions Phase I protocol: Sling (0-2 weeks) Scapular and GH Mobilization Pendulums/Cane/Javi Isometrics in all directions Biceps/Triceps exercises Modalities PRN PT-OP-B Current Condition Start: 05/03/22 14:19 Freq: Status: Active Protocol: Document 09/06/22 12:00 DCW (Rec: 09/06/22 14:16 DCW [id number]) Current Condition History of Current Condition Onset Date 04/24/22; 08/07/22 Current Complaints s/p left shoulder arthroscopic r/c debridement /c biceps repair History of Current Condition Pt is a 52 year old male with a long-standing history of bilateral shoulder pain presenting 9 days s/p left shoulder arthroscopic rotator cuff debridement with biceps repair. Per Dr Ortiz post-op protocol, pt currently in phase 1. Pt to continue using sling until two weeks post-op. Pt severely restricted with functional use of his left arm at ths moment, only has gotten out of sling for brief periods while sitting in his chair. Pt notes he lives with his mother, and needs to do most of the work around the house, but has obviously not been able to since surgery. ADDENDUM 09/06/22: Pt returns to skilled PT four weeks s/p manipulation under anesthesia and a second debridement following a plateau in progress after initial surgery . Surgical note reports there was extensive debridement performed. Pt reports he was told to continue to work on ROM, don't lift anything heavy, and that he was not required to wear a brace this time. Pt has been independently working on wall stretching, pendulums, and just keeping it moving and carrying things around. Notes he feels a lot better now than he had been following his first surgery, believes both and pain and mobility has improved since pre- manipulation. Treatment Goals Patient/Caregiver Goals I want complete use of my left arm back. Notes it would also be nice to be able to sleep on his left side. PT-OP-C Subjective Start: 05/03/22 14:19 Freq: Status: Active Protocol: Document 10/09/22 12:01 SP (Rec: 10/09/22 12:49 SP [id number]) OP-PT Subjective Patient Comments Patient Comments Pt reports feeling pain 8/10 in shoulders and anterior arm after exercises last tx. Taking a shower relieved some of the pain. PT-OP-F Manual Assessment Start: 05/03/22 14:19 Freq: Status: Active Protocol: Document 09/06/22 12:00 DCW (Rec: 09/06/22 14:16 DCW [id number]) Manual Assessments Joint Mobility Assessment Joint Mobility Assessment Left GH joint mobility moderately limited secondary to post-op stiffness PT-OP-K Range of Motion Start: 05/03/22 14:19 Freq: Status: Active Protocol: Document 09/06/22 12:00 DCW (Rec: 09/06/22 14:16 DCW [id number]) Shoulder Goniometric Range of Motion Shoulder Left Active Shoulder ROM WFL No Testing Position Sitting Flexion 101 Abduction 92 External Rotation at 0 degrees Abduction 70 Left Passive Shoulder ROM WFL No Testing Position Sitting Flexion 113 Abduction 103 External Rotation at 0 degrees Abduction 65 Shoulder ROM Limitations Shoulder ROM Limitations Muscle Weakness,Muscle Tone, Pain PT-OP-M Strength Start: 05/03/22 14:19 Freq: Status: Active Protocol: Document 09/06/22 12:00 DCW (Rec: 09/06/22 14:16 DCW [id number]) Shoulder Strength Shoulder Manual Muscle Testing Left Flexion 3- Fair- Abduction (C5) 3- Fair- External Rotation 4- Good- Internal Rotation 4- Good- PT-OP-Q Treatments Start: 05/03/22 14:19 Freq: Status: Active Protocol: Document 10/09/22 12:01 SP (Rec: 10/09/22 12:49 SP [id number]) Therapeutic Exercises Supine Exercises chest press Supine Exercise Name reviewed for safety home Side bilateral Resistance 3# DB Reps/Minutes x10 Comments close chain elbows at side, inferior glide, stopped d/t reports of grinding Sidelying Exercises ER Sidelying Exercise Name reviewed HEP Side left Resistance 3# DB Equipment Used towel roll under arm Reps/Minutes x10 Comments cued slow painfree range ABD Sidelying Exercise Name reviewed HEP Side left Resistance AROM Equipment Used towel roll Reps/Minutes x8 reps (110 degrees at end feel discomfort) Comments cued slow painfree range therapist occasional scap dwn rot fac support Standing Exercises tricep ext Standing Exercise Name added to HEP Side left Resistance #3 (green)> #5 ([place]) Reps/Minutes x20 each Comments cued rhomboid/LT rec wall push ups Standing Exercise Name wall push ups Equipment Used wall Reps/Minutes x10 Comments 45 deg- tiring, painfree internal rotation Standing Exercise Name internal rotation stretch- HEP reviewed Side left Equipment Used towel Reps/Minutes x3 reps ( good posture corrections) Comments cued level shoulders, hold for a couple breaths ER/IR Standing Exercise Name ER /IR- HEP reviewed Side left Resistance Lv 1>2 orange ER, Lv 3 IR green Equipment Used towel roll under arm Reps/Minutes x15 each Comments good form with towel placement Manual Therapy Treatment Soft Tissue Mobilization L shoulder Body Location Pec, bicep, deltoid, suprasp, triceps Mobilization Type Rolling,Strumming,Sustained Pressure,Other Intensity/Depth Moderate Body Position Hooklying Comments gentle pain free PROM L shoulder Joint Mobilizations L GH Jt Joint L Direction inferior w/abduction and flexion Grade II Body Position Hooklying Comments manual, with functional movement PT-OP-T Assessment and Plan Start: 05/03/22 14:19 Freq: Status: Active Protocol: Document 10/09/22 12:01 SP (Rec: 10/09/22 12:49 SP [id number]) Physical Therapy Assessment Goals Two Impairment Severely limited ROM due to pain and post-op protocol Ios Programmer Goal (LTG) Pt to show increased left shoulder flexion and abduction to at least 120? to exhibit beginning of return to post-op functional mobility and improve ability for him to help with sort manager. LTG Duration 11/06/22 - improving One Impairment Pt does not have an appropriate home exercise program Short Term Goal (STG) Pt to be independent and compliant with an appropriate HEP 09/28/22: HEP side ABD, ER, standing TB rows, ext, IR/ER, added prone Is and Ys. STG Duration 10/07/22 - improving 09/28/22 Assessment Summary Assessment Pt reported improved mobility, little discomfort 08/14 end tx compared to arrival. Tolerated ther ex with decreased resistance. Painfree ABD sidelying post manual and verbal/tactile cues for inferior glide. Held body blade today. Improve scap stabillzation with added tricep ext #4 in PT and home for scap stabilzation support. Physical Therapy Plan Frequency and Duration Frequency of Treatment 2x/Week Plan of Care Start Date 09/06/22 Plan of Care End Date 11/06/22 Therapeutic Interventions Therapeutic Interventions Home Exercise Program,Joint Mobilizations,Manual Therapy, Patient/Caregiver Education, Self-Care/Home Management,Soft Tissue Mobilization,Taping, Therapeutic Activities, Therapeutic Exercises Modalities Cold Pack/Ice Massage,Electric Stimulation,Hot Packs, Ultrasound Next Visit Focus/Plan Next Note Type Treatment Note Next Visit Plan Recheck gym ext for bench press, bicep curl. POC: Increasing AROM, strengthening and stretching
--- NOTE | 2022-10-12 12:44 | PT.OTN ---
Current Diagnoses Pain in left shoulder (10/12/22) Stiffness of left shoulder, not elsewhere classified (10/12/22) Impingement syndrome of left shoulder (10/12/22) Encounter for other specified surgical aftercare (10/12/22) Physical Therapy Treatment Note PT-OP-A Visit Information Start: 05/03/22 14:19 Freq: Status: Active Protocol: Document 10/12/22 12:00 DCW (Rec: 10/12/22 12:44 DCW [id number]) Out-Patient Physical Therapy Visit Information Visit Information Visit Type Treatment Note Visit Note Manipulation under anesthesia, debridement 08/07/22 Visit Start Time 12:00 Visit Stop Time 12:45 Total Visit Minutes 45 Visit Number 26 Number of ENRICHMENT TEACHER Visits 0 Evaluation Information Evaluation Date 05/03/22 Precautions Precautions Phase I protocol: Sling (0-2 weeks) Scapular and GH Mobilization Pendulums/Cane/Javi Isometrics in all directions Biceps/Triceps exercises Modalities PRN PT-OP-B Current Condition Start: 05/03/22 14:19 Freq: Status: Active Protocol: Document 09/06/22 12:00 DCW (Rec: 09/06/22 14:16 DCW [id number]) Current Condition History of Current Condition Onset Date 04/24/22; 08/07/22 Current Complaints s/p left shoulder arthroscopic r/c debridement /c biceps repair History of Current Condition Pt is a 52 year old male with a long-standing history of bilateral shoulder pain presenting 9 days s/p left shoulder arthroscopic rotator cuff debridement with biceps repair. Per Dr Ortiz post-op protocol, pt currently in phase 1. Pt to continue using sling until two weeks post-op. Pt severely restricted with functional use of his left arm at ths moment, only has gotten out of sling for brief periods while sitting in his chair. Pt notes he lives with his mother, and needs to do most of the work around the house, but has obviously not been able to since surgery. ADDENDUM 09/06/22: Pt returns to skilled PT four weeks s/p manipulation under anesthesia and a second debridement following a plateau in progress after initial surgery . Surgical note reports there was extensive debridement performed. Pt reports he was told to continue to work on ROM, don't lift anything heavy, and that he was not required to wear a brace this time. Pt has been independently working on wall stretching, pendulums, and just keeping it moving and carrying things around. Notes he feels a lot better now than he had been following his first surgery, believes both and pain and mobility has improved since pre- manipulation. Treatment Goals Patient/Caregiver Goals I want complete use of my left arm back. Notes it would also be nice to be able to sleep on his left side. PT-OP-C Subjective Start: 05/03/22 14:19 Freq: Status: Active Protocol: Document 10/12/22 12:00 DCW (Rec: 10/12/22 12:44 DCW [id number]) OP-PT Subjective Patient Comments Patient Comments It's still hurting pretty bad , but it's a little better. PT-OP-F Manual Assessment Start: 05/03/22 14:19 Freq: Status: Active Protocol: Document 09/06/22 12:00 DCW (Rec: 09/06/22 14:16 DCW [id number]) Manual Assessments Joint Mobility Assessment Joint Mobility Assessment Left GH joint mobility moderately limited secondary to post-op stiffness PT-OP-K Range of Motion Start: 05/03/22 14:19 Freq: Status: Active Protocol: Document 09/06/22 12:00 DCW (Rec: 09/06/22 14:16 DCW [id number]) Shoulder Goniometric Range of Motion Shoulder Left Active Shoulder ROM WFL No Testing Position Sitting Flexion 101 Abduction 92 External Rotation at 0 degrees Abduction 70 Left Passive Shoulder ROM WFL No Testing Position Sitting Flexion 113 Abduction 103 External Rotation at 0 degrees Abduction 65 Shoulder ROM Limitations Shoulder ROM Limitations Muscle Weakness,Muscle Tone, Pain PT-OP-M Strength Start: 05/03/22 14:19 Freq: Status: Active Protocol: Document 09/06/22 12:00 DCW (Rec: 09/06/22 14:16 DCW [id number]) Shoulder Strength Shoulder Manual Muscle Testing Left Flexion 3- Fair- Abduction (C5) 3- Fair- External Rotation 4- Good- Internal Rotation 4- Good- PT-OP-Q Treatments Start: 05/03/22 14:19 Freq: Status: Active Protocol: Document 10/12/22 12:00 DCW (Rec: 10/12/22 12:44 DCW [id number]) Therapeutic Exercises Sitting Exercises Curl/Press Sitting Exercise Name Overhead press Side bilateral Resistance PVC /c 5# Pulleys Sitting Exercise Name Javi - GH flexion, ABD, Scaption Side bilateral Reps/Minutes x15 each Comments cued slow controlled mov't Standing Exercises body blade Standing Exercise Name fwd punch, IR/ ER Side left Reps/Minutes 30 each direction Comments stopped due to pain wall push ups Standing Exercise Name wall push ups Equipment Used wall Reps/Minutes x10 Comments good form Manual Therapy Treatment Soft Tissue Mobilization L shoulder Body Location Pec, bicep, deltoid, suprasp, triceps Mobilization Type Rolling,Strumming,Sustained Pressure,Other Intensity/Depth Moderate Body Position Hooklying Comments gentle pain free PROM L shoulder Joint Mobilizations L GH Jt Joint L Direction inferior w/abduction and flexion Grade II Body Position Hooklying Comments manual, with functional movement Taping R Shoulder Body Location Shoulder stabilization, 2 Y- strips Comments Along Deltoid and across LH biceps PT-OP-T Assessment and Plan Start: 05/03/22 14:19 Freq: Status: Active Protocol: Document 10/12/22 12:00 DCW (Rec: 10/12/22 12:44 DCW [id number]) Physical Therapy Assessment Impairments Impairments Activity Tolerance,Functional Activities,Functional Mobility ,Pain,ROM,Soft Tissue Mobility ,Strength,Tone Goals Two Impairment Severely limited ROM due to pain and post-op protocol Knowledge Manager Goal (LTG) Pt to show increased left shoulder flexion and abduction to at least 120? to exhibit beginning of return to post-op functional mobility and improve ability for him to help with auto bench mechanic. LTG Duration 11/06/22 - improving One Impairment Pt does not have an appropriate home exercise program Short Term Goal (STG) Pt to be independent and compliant with an appropriate HEP 09/28/22: HEP side ABD, ER, standing TB rows, ext, IR/ER, added prone Is and Ys. STG Duration 10/07/22 - improving 09/28/22 Assessment Summary Assessment Pt continues to struggle with pain since last week, having difficulty continuing with prior activities just due to pain limiting functional mobility. Decreased exercise today, focused more on manual and trial of K-tape for GH joint support. Physical Therapy Plan Frequency and Duration Frequency of Treatment 2x/Week Plan of Care Start Date 09/06/22 Plan of Care End Date 11/06/22 Therapeutic Interventions Therapeutic Interventions Home Exercise Program,Joint Mobilizations,Manual Therapy, Patient/Caregiver Education, Self-Care/Home Management,Soft Tissue Mobilization,Taping, Therapeutic Activities, Therapeutic Exercises Modalities Cold Pack/Ice Massage,Electric Stimulation,Hot Packs, Ultrasound Next Visit Focus/Plan Next Note Type Treatment Note Next Visit Plan Recheck gym ext for bench press, bicep curl. POC: Increasing AROM, strengthening and stretching
--- NOTE | 2022-10-20 14:15 | PT.OTN ---
Current Diagnoses Pain in left shoulder (10/20/22) Stiffness of left shoulder, not elsewhere classified (10/20/22) Impingement syndrome of left shoulder (10/20/22) Encounter for other specified surgical aftercare (10/20/22) Physical Therapy Treatment Note PT-OP-A Visit Information Start: 05/03/22 14:19 Freq: Status: Active Protocol: Document 10/20/22 13:34 SP (Rec: 10/20/22 14:22 SP [id number]) Out-Patient Physical Therapy Visit Information Visit Information Visit Type Treatment Note Visit Note Manipulation under anesthesia, debridement 08/07/22 Visit Start Time 13:34 Visit Stop Time 14:15 Total Visit Minutes 41 Visit Number 27 Number of SCREEN HANDLER Visits 1 Evaluation Information Evaluation Date 05/03/22 Precautions Precautions Phase I protocol: Sling (0-2 weeks) Scapular and GH Mobilization Pendulums/Cane/Javi Isometrics in all directions Biceps/Triceps exercises Modalities PRN PT-OP-B Current Condition Start: 05/03/22 14:19 Freq: Status: Active Protocol: Document 09/06/22 12:00 DCW (Rec: 09/06/22 14:16 DCW [id number]) Current Condition History of Current Condition Onset Date 04/24/22; 08/07/22 Current Complaints s/p left shoulder arthroscopic r/c debridement /c biceps repair History of Current Condition Pt is a 52 year old male with a long-standing history of bilateral shoulder pain presenting 9 days s/p left shoulder arthroscopic rotator cuff debridement with biceps repair. Per Dr Ortiz post-op protocol, pt currently in phase 1. Pt to continue using sling until two weeks post-op. Pt severely restricted with functional use of his left arm at ths moment, only has gotten out of sling for brief periods while sitting in his chair. Pt notes he lives with his mother, and needs to do most of the work around the house, but has obviously not been able to since surgery. ADDENDUM 09/06/22: Pt returns to skilled PT four weeks s/p manipulation under anesthesia and a second debridement following a plateau in progress after initial surgery . Surgical note reports there was extensive debridement performed. Pt reports he was told to continue to work on ROM, don't lift anything heavy, and that he was not required to wear a brace this time. Pt has been independently working on wall stretching, pendulums, and just keeping it moving and carrying things around. Notes he feels a lot better now than he had been following his first surgery, believes both and pain and mobility has improved since pre- manipulation. Treatment Goals Patient/Caregiver Goals I want complete use of my left arm back. Notes it would also be nice to be able to sleep on his left side. PT-OP-C Subjective Start: 05/03/22 14:19 Freq: Status: Active Protocol: Document 10/20/22 13:34 SP (Rec: 10/20/22 14:22 SP [id number]) OP-PT Subjective Patient Comments Patient Comments Pt reports L shld feeling better able to reach OH better but lateral L arm (painted distal deltoid) started being sore after TB exercises pulling down, being mindful giving break every other day if needed. PT-OP-F Manual Assessment Start: 05/03/22 14:19 Freq: Status: Active Protocol: Document 09/06/22 12:00 DCW (Rec: 09/06/22 14:16 DCW [id number]) Manual Assessments Joint Mobility Assessment Joint Mobility Assessment Left GH joint mobility moderately limited secondary to post-op stiffness PT-OP-K Range of Motion Start: 05/03/22 14:19 Freq: Status: Active Protocol: Document 09/06/22 12:00 DCW (Rec: 09/06/22 14:16 DCW [id number]) Shoulder Goniometric Range of Motion Shoulder Left Active Shoulder ROM WFL No Testing Position Sitting Flexion 101 Abduction 92 External Rotation at 0 degrees Abduction 70 Left Passive Shoulder ROM WFL No Testing Position Sitting Flexion 113 Abduction 103 External Rotation at 0 degrees Abduction 65 Shoulder ROM Limitations Shoulder ROM Limitations Muscle Weakness,Muscle Tone, Pain PT-OP-M Strength Start: 05/03/22 14:19 Freq: Status: Active Protocol: Document 09/06/22 12:00 DCW (Rec: 09/06/22 14:16 DCW [id number]) Shoulder Strength Shoulder Manual Muscle Testing Left Flexion 3- Fair- Abduction (C5) 3- Fair- External Rotation 4- Good- Internal Rotation 4- Good- PT-OP-Q Treatments Start: 05/03/22 14:19 Freq: Status: Active Protocol: Document 10/20/22 13:34 SP (Rec: 10/20/22 14:22 SP [id number]) Therapeutic Exercises Sitting Exercises Curl/Press Sitting Exercise Name Overhead press Side bilateral Resistance PVC /c 5# Reps/Minutes 2x10 Comments cued slow, PVC over shld Pulleys Sitting Exercise Name Javi - GH flexion, ABD, Scaption Side bilateral Reps/Minutes x15 each Comments cued slow controlled mov't Standing Exercises body blade Standing Exercise Name downward ok, painful fwd, [place], IR/ ER Side left Reps/Minutes 30 fwd only Comments stopped due to pain wall push ups Standing Exercise Name wall push ups Equipment Used wall Reps/Minutes x20 Comments good form, painfree tires by end Manual Therapy Treatment Soft Tissue Mobilization L shoulder Body Location Pec, bicep, deltoid, suprasp, triceps Mobilization Type Rolling,Strumming,Sustained Pressure,Other Intensity/Depth Moderate Body Position Hooklying Comments gentle pain free PROM L shoulder Joint Mobilizations L GH Jt Joint L Direction inferior w/abduction and flexion Grade II Body Position Hooklying Comments manual, with functional movement PT-OP-T Assessment and Plan Start: 05/03/22 14:19 Freq: Status: Active Protocol: Document 10/20/22 13:34 SP (Rec: 10/20/22 14:22 SP [id number]) Physical Therapy Assessment Goals Two Impairment Severely limited ROM due to pain and post-op protocol Ornamental Ironworking Supervisor Goal (LTG) Pt to show increased left shoulder flexion and abduction to at least 120? to exhibit beginning of return to post-op functional mobility and improve ability for him to help with sharepoint application developer. LTG Duration 11/06/22 - improving One Impairment Pt does not have an appropriate home exercise program Short Term Goal (STG) Pt to be independent and compliant with an appropriate HEP 09/28/22: HEP side ABD, ER, standing TB rows, ext, IR/ER, added prone Is and Ys. STG Duration 10/07/22 - improving 09/28/22 Assessment Summary Assessment Pt responded well to manual, reports tiring ther ex today and arm more neutral scap positioning and slower pacing reps. Discontinued body blade IR/ER/fwd/OH punch due to anterior R shld little irritation pain. Pt declined cold modality end tx for anterior L shld soreness will put on at home later. He is pleased with progression overall and reaching over head , washing behind R shld w/ LUE . Physical Therapy Plan Frequency and Duration Frequency of Treatment 2x/Week Plan of Care Start Date 09/06/22 Plan of Care End Date 11/06/22 Therapeutic Interventions Therapeutic Interventions Home Exercise Program,Joint Mobilizations,Manual Therapy, Patient/Caregiver Education, Self-Care/Home Management,Soft Tissue Mobilization,Taping, Therapeutic Activities, Therapeutic Exercises Modalities Cold Pack/Ice Massage,Electric Stimulation,Hot Packs, Ultrasound Next Visit Focus/Plan Next Note Type Treatment Note Next Visit Plan Pt to check add appt with PT by 11/06 update POC. POC: Increasing AROM, strengthening and stretching
--- NOTE | 2022-10-23 15:15 | PT.OTN ---
Current Diagnoses Pain in left shoulder (10/23/22) Stiffness of left shoulder, not elsewhere classified (10/23/22) Impingement syndrome of left shoulder (10/23/22) Encounter for other specified surgical aftercare (10/23/22) Physical Therapy Treatment Note PT-OP-A Visit Information Start: 05/03/22 14:19 Freq: Status: Active Protocol: Document 10/23/22 14:34 SP (Rec: 10/23/22 15:51 SP [id number]) Out-Patient Physical Therapy Visit Information Visit Information Visit Type Treatment Note Visit Note Manipulation under anesthesia, debridement 08/07/22 Visit Start Time 14:31 Visit Stop Time 15:15 Total Visit Minutes 44 Visit Number 28 Number of DOOR CUTTER Visits 2 Evaluation Information Evaluation Date 05/03/22 Precautions Precautions 08/07/22: Manipulation under anesthesia, debridement PT-OP-B Current Condition Start: 05/03/22 14:19 Freq: Status: Active Protocol: Document 09/06/22 12:00 DCW (Rec: 09/06/22 14:16 DCW [id number]) Current Condition History of Current Condition Onset Date 04/24/22; 08/07/22 Current Complaints s/p left shoulder arthroscopic r/c debridement /c biceps repair History of Current Condition Pt is a 52 year old male with a long-standing history of bilateral shoulder pain presenting 9 days s/p left shoulder arthroscopic rotator cuff debridement with biceps repair. Per Dr Ortiz post-op protocol, pt currently in phase 1. Pt to continue using sling until two weeks post-op. Pt severely restricted with functional use of his left arm at ths moment, only has gotten out of sling for brief periods while sitting in his chair. Pt notes he lives with his mother, and needs to do most of the work around the house, but has obviously not been able to since surgery. ADDENDUM 09/06/22: Pt returns to skilled PT four weeks s/p manipulation under anesthesia and a second debridement following a plateau in progress after initial surgery . Surgical note reports there was extensive debridement performed. Pt reports he was told to continue to work on ROM, don't lift anything heavy, and that he was not required to wear a brace this time. Pt has been independently working on wall stretching, pendulums, and just keeping it moving and carrying things around. Notes he feels a lot better now than he had been following his first surgery, believes both and pain and mobility has improved since pre- manipulation. Treatment Goals Patient/Caregiver Goals I want complete use of my left arm back. Notes it would also be nice to be able to sleep on his left side. PT-OP-C Subjective Start: 05/03/22 14:19 Freq: Status: Active Protocol: Document 10/23/22 14:34 SP (Rec: 10/23/22 15:51 SP [id number]) OP-PT Subjective Patient Comments Patient Comments Pt reports did well after last tx, not really pain more muscle soreness. He states still a challenge but sees improvement OH reach, still uses RUE to put things away in cupboards. PT-OP-F Manual Assessment Start: 05/03/22 14:19 Freq: Status: Active Protocol: Document 09/06/22 12:00 DCW (Rec: 09/06/22 14:16 DCW [id number]) Manual Assessments Joint Mobility Assessment Joint Mobility Assessment Left GH joint mobility moderately limited secondary to post-op stiffness PT-OP-K Range of Motion Start: 05/03/22 14:19 Freq: Status: Active Protocol: Document 10/23/22 14:34 SP (Rec: 10/23/22 15:51 SP [id number]) Shoulder Goniometric Range of Motion Shoulder Left Active Shoulder ROM WFL No Testing Position Sitting Flexion 138 Abduction 92 External Rotation at 0 degrees Abduction 70 Internal Rotation Behind Back (text) L2 behind back Comments 10/23/22, last assessed 09/06/22: LUE AROM seated FF improved 37 deg at 138 ABD same 92 deg ER (0deg abd) 70 deg IR standing behind back LB PT-OP-M Strength Start: 05/03/22 14:19 Freq: Status: Active Protocol: Document 09/06/22 12:00 DCW (Rec: 09/06/22 14:16 DCW [id number]) Shoulder Strength Shoulder Manual Muscle Testing Left Flexion 3- Fair- Abduction (C5) 3- Fair- External Rotation 4- Good- Internal Rotation 4- Good- PT-OP-Q Treatments Start: 05/03/22 14:19 Freq: Status: Active Protocol: Document 10/23/22 14:34 SP (Rec: 10/23/22 15:51 SP [id number]) Therapeutic Exercises Sidelying Exercises ABD Sidelying Exercise Name reviewed HEP Side left Resistance AROM Equipment Used towel roll Reps/Minutes x8 reps Comments manual scapular rotation fac, humeral inferior glide Sitting Exercises Pulleys Sitting Exercise Name Javi - GH flexion, ABD, Scaption Side bilateral Reps/Minutes x15 each Comments cued slow controlled mov't Standing Exercises flexion into cupboard Standing Exercise Name initiated in PT Side left Resistance 2# DB Reps/Minutes x10 Comments cued scap set- painfree, report tiring last few reps tricep ext Standing Exercise Name reviewed HEP Side left Resistance #5 ([place] home), heavy blue in PT Reps/Minutes 3x10 alternate with bicep curls Comments occasional cues scap retraction- good muscle tiring /painfree wall push ups Standing Exercise Name incline push ups Equipment Used elevated OT table 34 Reps/Minutes x10, last 2 reps challenged Comments cued pelvis down, painfree tires by end Wall Stretch Standing Exercise Name wall walking, pec stretch Side left Reps/Minutes 5 reps x 3 breath Comments cued posturing, elbow straight no UT ER/IR Standing Exercise Name ER /IR- HEP reviewed Side left Resistance Lv 3 IR green Reps/Minutes x15 each Comments good form and eccentric ER stretch Abduction Standing Exercise Name Shoulder Abduction- in PT Side bilateral Resistance 2# DB Equipment Used in front mirror Reps/Minutes x5 reps Comments approx 70 deg Flexion Standing Exercise Name Shoulder Flexion in PT Side bilateral Resistance 2# DB Equipment Used mirror Reps/Minutes x8 reps- some UT recruitment last 2 reps Comments Pain-free ROM, Mirror to limit UT compensation Biceps Curls Standing Exercise Name Biceps Curls to OH press Side left Resistance 4#>5#DB Reps/Minutes 3x10 reps Comments alternate with tricep TB ext Pendulums Standing Exercise Name Pendulums Side left Reps/Minutes 1 min Comments multidirectional end tx Manual Therapy Treatment Soft Tissue Mobilization L shoulder Body Location Pec, bicep, deltoid, supra, rhomboid, Serratus Ant Mobilization Type Rolling,Strumming,Sustained Pressure,Other Intensity/Depth Moderate Body Position Hooklying Comments manual and w/ FM scapular rotation, GH ABD & HABD. Joint Mobilizations ST Joint L scapulothoracic Direction upwards/downwards rotation, elevation/depression, protraction/retraction Grade II Body Position Sidelying PT-OP-T Assessment and Plan Start: 05/03/22 14:19 Freq: Status: Active Protocol: Document 10/23/22 14:34 SP (Rec: 10/23/22 15:51 SP [id number]) Physical Therapy Assessment Goals Two Impairment Severely limited ROM due to pain and post-op protocol Psychiatric Technician Goal (LTG) Pt to show increased left shoulder flexion and abduction to at least 120? 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 : progressing FF 138deg, abd 92 deg, ER 70 deg, IR behind back L2. LTG Duration 11/06/22 - improving 10/23/22 One Impairment Pt does not have an appropriate home exercise program Short Term Goal (STG) Pt to be independent and compliant with an appropriate HEP 09/28/22: HEP side ABD, ER, standing TB rows, ext, IR/ER, added prone Is and Ys. STG Duration 10/07/22 - improving 09/28/22 Progress Towards Goals Progress Comments Pt making gains in AROM 10/23/22: LUE AROM seated FF improved 37 deg at 138 ABD same 92 deg ER (0deg abd) 70 deg IR standing behind back L2 Assessment Summary Assessment Pt reports muscle tiring resisted DB into cupboard, painfree to progress putting dishes away. Continues soreness over anterior L shld decrease tightness post manual with improved scapular rotation to allow reaching OH into ABD. Pt making gains in ROM, see measurements. Physical Therapy Plan Frequency and Duration Frequency of Treatment 2x/Week Plan of Care Start Date 09/06/22 Plan of Care End Date 11/06/22 Therapeutic Interventions Therapeutic Interventions Home Exercise Program,Joint Mobilizations,Manual Therapy, Patient/Caregiver Education, Self-Care/Home Management,Soft Tissue Mobilization,Taping, Therapeutic Activities, Therapeutic Exercises Modalities Cold Pack/Ice Massage,Electric Stimulation,Hot Packs, Ultrasound Next Visit Focus/Plan Next Note Type Treatment Note Next Visit Plan PT update POC in 2 visits, exp 11/06. POC: Increasing AROM, strengthening and stretching
--- NOTE | 2022-10-26 15:15 | PT.OTN ---
Current Diagnoses Pain in left shoulder (10/26/22) Stiffness of left shoulder, not elsewhere classified (10/26/22) Impingement syndrome of left shoulder (10/26/22) Encounter for other specified surgical aftercare (10/26/22) Physical Therapy Treatment Note PT-OP-A Visit Information Start: 05/03/22 14:19 Freq: Status: Active Protocol: Document 10/26/22 14:36 SP (Rec: 10/26/22 15:17 SP [id number]) Out-Patient Physical Therapy Visit Information Visit Information Visit Type Treatment Note Visit Start Time 14:34 Visit Stop Time 15:15 Total Visit Minutes 41 Visit Number 29 Number of WELL LOGGING CAPTAIN MUD ANALYSIS Visits 3 Evaluation Information Evaluation Date 05/03/22 Precautions Precautions 08/07/22: Manipulation under anesthesia, debridement PT-OP-B Current Condition Start: 05/03/22 14:19 Freq: Status: Active Protocol: Document 09/06/22 12:00 DCW (Rec: 09/06/22 14:16 DCW [id number]) Current Condition History of Current Condition Onset Date 04/24/22; 08/07/22 Current Complaints s/p left shoulder arthroscopic r/c debridement /c biceps repair History of Current Condition Pt is a 52 year old male with a long-standing history of bilateral shoulder pain presenting 9 days s/p left shoulder arthroscopic rotator cuff debridement with biceps repair. Per Dr Ortiz post-op protocol, pt currently in phase 1. Pt to continue using sling until two weeks post-op. Pt severely restricted with functional use of his left arm at ths moment, only has gotten out of sling for brief periods while sitting in his chair. Pt notes he lives with his mother, and needs to do most of the work around the house, but has obviously not been able to since surgery. ADDENDUM 09/06/22: Pt returns to skilled PT four weeks s/p manipulation under anesthesia and a second debridement following a plateau in progress after initial surgery . Surgical note reports there was extensive debridement performed. Pt reports he was told to continue to work on ROM, don't lift anything heavy, and that he was not required to wear a brace this time. Pt has been independently working on wall stretching, pendulums, and just keeping it moving and carrying things around. Notes he feels a lot better now than he had been following his first surgery, believes both and pain and mobility has improved since pre- manipulation. Treatment Goals Patient/Caregiver Goals I want complete use of my left arm back. Notes it would also be nice to be able to sleep on his left side. PT-OP-C Subjective Start: 05/03/22 14:19 Freq: Status: Active Protocol: Document 10/26/22 14:36 SP (Rec: 10/26/22 15:17 SP [id number]) OP-PT Subjective Patient Comments Patient Comments Pt reports L shld sore still after performed the weighted reaching to shelf exercise at home and incline pushups but adjusted incline then fine and good effort. Pt reports last seen ortho 3 weeks ago and was cleared unless anything concerning need to have another follow up. He states doesn't feel ready to continue on own with pain and decreased ROM still, not sure if pain is coming from neck or shoulder, hasn't see pain mgt for neck in while, told need have diabetes controlled which feels is pretty good lately. He knows there is deteriation in his neck. PT-OP-F Manual Assessment Start: 05/03/22 14:19 Freq: Status: Active Protocol: Document 09/06/22 12:00 DCW (Rec: 09/06/22 14:16 DCW [id number]) Manual Assessments Joint Mobility Assessment Joint Mobility Assessment Left GH joint mobility moderately limited secondary to post-op stiffness PT-OP-K Range of Motion Start: 05/03/22 14:19 Freq: Status: Active Protocol: Document 10/23/22 14:34 SP (Rec: 10/23/22 15:51 SP [id number]) Shoulder Goniometric Range of Motion Shoulder Left Active Shoulder ROM WFL No Testing Position Sitting Flexion 138 Abduction 92 External Rotation at 0 degrees Abduction 70 Internal Rotation Behind Back (text) L2 behind back Comments 10/23/22, last assessed 09/06/22: LUE AROM seated FF improved 37 deg at 138 ABD same 92 deg ER (0deg abd) 70 deg IR standing behind back LB PT-OP-M Strength Start: 05/03/22 14:19 Freq: Status: Active Protocol: Document 09/06/22 12:00 DCW (Rec: 09/06/22 14:16 DCW [id number]) Shoulder Strength Shoulder Manual Muscle Testing Left Flexion 3- Fair- Abduction (C5) 3- Fair- External Rotation 4- Good- Internal Rotation 4- Good- PT-OP-Q Treatments Start: 05/03/22 14:19 Freq: Status: Active Protocol: Document 10/26/22 14:36 SP (Rec: 10/26/22 15:17 SP [id number]) Cardio Equipment Upper Body Ergometer (UBE) Duration (Minutes) 6 RPM 90 Seat Position 13 Height 3 Other 1 ' fwd/ bwd alternating Therapeutic Exercises Prone Exercises Is, Ys Prone Exercise Name reviewed tolerance: Is, Ys, hold Ts Side left Resistance AROM Ts & Ys limited range, Is #2 DB Reps/Minutes x10 reps each Comments cued scap glide painfree range Standing Exercises ER/IR Standing Exercise Name ER /IR- HEP reviewed Side left Resistance Lv 3 IR green Reps/Minutes x15 each Comments good form , reports just tiring Pendulums Standing Exercise Name Pendulums Side left Reps/Minutes 1 min Comments multidirectional end tx Manual Therapy Treatment Soft Tissue Mobilization scar mob Body Location L Mobilization Type Instrument Assisted,Myofascial Release Comments cupping bicep, deltoid- improve MF glide L shoulder Body Location Pec, bicep, deltoid, supra, rhomboid, Serratus Ant Mobilization Type Rolling,Strumming,Sustained Pressure,Other Intensity/Depth Moderate Body Position Hooklying Comments manual and w/ FM scapular rotation, GH ABD & HABD. Joint Mobilizations L GH Jt Joint L Direction inferior w/abduction and flexion Grade II Body Position Hooklying Comments manual, with functional movement ST Joint L scapulothoracic Direction upwards/downwards rotation, elevation/depression, protraction/retraction Grade II Body Position Sidelying PT-OP-T Assessment and Plan Start: 05/03/22 14:19 Freq: Status: Active Protocol: Document 10/26/22 14:36 SP (Rec: 10/26/22 15:17 SP [id number]) Physical Therapy Assessment Goals Two Impairment Severely limited ROM due to pain and post-op protocol Shelter Goal (LTG) Pt to show increased left shoulder flexion and abduction to at least 120? 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 : progressing FF 138deg, abd 92 deg, ER 70 deg, IR behind back L2. LTG Duration 11/06/22 - improving 10/23/22 One Impairment Pt does not have an appropriate home exercise program Short Term Goal (STG) Pt to be independent and compliant with an appropriate HEP 09/28/22: HEP side ABD, ER, standing TB rows, ext, IR/ER, added prone Is and Ys. STG Duration 10/07/22 - improving 09/28/22 Assessment Summary Assessment Pt reports less pain anterior shld and little more mobility post gentle feedback pressure during manual, then when arrived. Pt is uncertain if pain is coming from neck or L shld and not sure ready to continue on own, wants to continue to get back to normal ADLs/activities still hasn't been able to. He declines cold modality, will do when home if needed. Physical Therapy Plan Frequency and Duration Frequency of Treatment 2x/Week Plan of Care Start Date 09/06/22 Plan of Care End Date 11/06/22 Therapeutic Interventions Therapeutic Interventions Home Exercise Program,Joint Mobilizations,Manual Therapy, Patient/Caregiver Education, Self-Care/Home Management,Soft Tissue Mobilization,Taping, Therapeutic Activities, Therapeutic Exercises Modalities Cold Pack/Ice Massage,Electric Stimulation,Hot Packs, Ultrasound Next Visit Focus/Plan Next Note Type Progress Note Next Visit Plan PT update POC in 1 visits, exp 11/06. POC: Increasing AROM, strengthening and stretching
--- NOTE | 2022-11-03 14:14 | PT.OTN ---
Current Diagnoses Pain in left shoulder (11/03/22) Stiffness of left shoulder, not elsewhere classified (11/03/22) Impingement syndrome of left shoulder (11/03/22) Encounter for other specified surgical aftercare (11/03/22) Physical Therapy Treatment Note PT-OP-A Visit Information Start: 05/03/22 14:19 Freq: Status: Active Protocol: Document 11/03/22 13:30 DCW (Rec: 11/03/22 14:14 DCW [id number]) Out-Patient Physical Therapy Visit Information Visit Information Visit Type Progress Note Visit Start Time 13:30 Visit Stop Time 14:15 Total Visit Minutes 45 Visit Number 30 Number of BREAKDOWN PERSON Visits 0 Evaluation Information Evaluation Date 05/03/22 Precautions Precautions 08/07/22: Manipulation under anesthesia, debridement PT-OP-B Current Condition Start: 05/03/22 14:19 Freq: Status: Active Protocol: Document 09/06/22 12:00 DCW (Rec: 09/06/22 14:16 DCW [id number]) Current Condition History of Current Condition Onset Date 04/24/22; 08/07/22 Current Complaints s/p left shoulder arthroscopic r/c debridement /c biceps repair History of Current Condition Pt is a 52 year old male with a long-standing history of bilateral shoulder pain presenting 9 days s/p left shoulder arthroscopic rotator cuff debridement with biceps repair. Per Dr Ortiz post-op protocol, pt currently in phase 1. Pt to continue using sling until two weeks post-op. Pt severely restricted with functional use of his left arm at ths moment, only has gotten out of sling for brief periods while sitting in his chair. Pt notes he lives with his mother, and needs to do most of the work around the house, but has obviously not been able to since surgery. ADDENDUM 09/06/22: Pt returns to skilled PT four weeks s/p manipulation under anesthesia and a second debridement following a plateau in progress after initial surgery . Surgical note reports there was extensive debridement performed. Pt reports he was told to continue to work on ROM, don't lift anything heavy, and that he was not required to wear a brace this time. Pt has been independently working on wall stretching, pendulums, and just keeping it moving and carrying things around. Notes he feels a lot better now than he had been following his first surgery, believes both and pain and mobility has improved since pre- manipulation. Treatment Goals Patient/Caregiver Goals I want complete use of my left arm back. Notes it would also be nice to be able to sleep on his left side. PT-OP-C Subjective Start: 05/03/22 14:19 Freq: Status: Active Protocol: Document 11/03/22 13:30 DCW (Rec: 11/03/22 14:14 DCW [id number]) OP-PT Subjective Patient Comments Patient Comments Pt still struggling reaching behid his back. Overall feels like he has made improvement, but feels there has been a bit of a recent decline, admits he hasn't been sleeping well. PT-OP-F Manual Assessment Start: 05/03/22 14:19 Freq: Status: Active Protocol: Document 11/03/22 13:30 DCW (Rec: 11/03/22 13:40 DCW [id number]) Manual Assessments Joint Mobility Assessment Joint Mobility Assessment Left GH joint mobility moderately limited secondary to post-op stiffness PT-OP-K Range of Motion Start: 05/03/22 14:19 Freq: Status: Active Protocol: Document 11/03/22 13:30 DCW (Rec: 11/03/22 13:40 DCW [id number]) Shoulder Goniometric Range of Motion Shoulder Left Active Shoulder ROM WFL No Testing Position Sitting Flexion 128 Abduction 93 External Rotation at 0 degrees Abduction 70 Internal Rotation Behind Back (text) L2 behind back Left Passive Shoulder ROM WFL No Testing Position Sitting Flexion 123 Abduction 101 External Rotation at 0 degrees Abduction 70 PT-OP-M Strength Start: 05/03/22 14:19 Freq: Status: Active Protocol: Document 11/03/22 13:30 DCW (Rec: 11/03/22 13:40 DCW [id number]) Shoulder Strength Shoulder Manual Muscle Testing Left Flexion 3- Fair- Abduction (C5) 3- Fair- External Rotation 4- Good- Internal Rotation 4- Good- PT-OP-Q Treatments Start: 05/03/22 14:19 Freq: Status: Active Protocol: Document 11/03/22 13:30 DCW (Rec: 11/03/22 14:14 DCW [id number]) Gym Equipment Cable Column (Body Solid) Rows Resistance 10# Lat Pull Down Resistance 10# Therapeutic Exercises Sitting Exercises Pulleys Sitting Exercise Name Javi - GH flexion, ABD, Scaption Side bilateral Reps/Minutes x15 each Comments cued slow controlled mov't Standing Exercises tricep ext Side left Resistance heavy blue Comments occasional cues scap retraction- good muscle tiring /painfree wall push ups Standing Exercise Name incline push ups Equipment Used elevated plinth table 36 Reps/Minutes x10 Comments tires by end Wall Stretch Standing Exercise Name wall walking, pec stretch Side left Reps/Minutes 5 reps x 3 breath Comments cued posturing, elbow straight no UT Manual Therapy Treatment Soft Tissue Mobilization L shoulder Body Location Pec, bicep, deltoid, supra, rhomboid, Serratus Ant Mobilization Type Rolling,Strumming,Sustained Pressure,Other Intensity/Depth Moderate Body Position Hooklying Comments manual and w/ FM scapular rotation, GH ABD & HABD. Joint Mobilizations L GH Jt Joint L Direction inferior w/abduction and flexion Grade II Body Position Hooklying Comments manual, with functional movement ST Joint L scapulothoracic Direction upwards/downwards rotation, elevation/depression, protraction/retraction Grade II Body Position Sidelying PT-OP-T Assessment and Plan Start: 05/03/22 14:19 Freq: Status: Active Protocol: Document 11/03/22 13:30 DCW (Rec: 11/03/22 14:14 DCW [id number]) Physical Therapy Assessment Goals Two Impairment Severely limited ROM due to pain and post-op protocol Chcf Goal (LTG) Pt to show increased left shoulder flexion and abduction to at least 120? 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 : progressing FF 138deg, abd 92 deg, ER 70 deg, IR behind back L2. LTG Duration 01/03/23 One Impairment Pt does not have an appropriate home exercise program Short Term Goal (STG) Pt to be independent and compliant with an appropriate HEP 09/28/22: HEP side ABD, ER, standing TB rows, ext, IR/ER, added prone Is and Ys. STG Duration 12/03/22 Assessment Summary Assessment Pt still quite limited with ROM s/p manipulation, does feel better overall but very sore with any attempts at overhead movement. Continue to work on strength and overall ROM to improve daily function. Pt will likely benefit from continued skilled therapy. Physical Therapy Plan Frequency and Duration Frequency of Treatment 2x/Week Plan of Care Start Date 11/03/22 Plan of Care End Date 01/03/23 Therapeutic Interventions Therapeutic Interventions Home Exercise Program,Joint Mobilizations,Manual Therapy, Patient/Caregiver Education, Self-Care/Home Management,Soft Tissue Mobilization,Taping, Therapeutic Activities, Therapeutic Exercises Modalities Cold Pack/Ice Massage,Electric Stimulation,Hot Packs, Ultrasound Next Visit Focus/Plan Next Note Type Treatment Note Next Visit Plan POC: Increasing AROM, strengthening and stretching
--- NOTE | 2022-11-03 14:15 | PT.OPPOC ---
Physical, Occupational & Speech Therapy At [facility] Current Diagnoses Pain in left shoulder (11/03/22) Stiffness of left shoulder, not elsewhere classified (11/03/22) Impingement syndrome of left shoulder (11/03/22) Encounter for other specified surgical aftercare (11/03/22) Visit Care Team Role Provider Type Oswaldo Pickering MD Family Provider Physician Primary Care Provider Specialty: Internal Medicine Address: [address] [place] [address], [address], [place], [address] Email: [email or web address] David Watkins PA-C Attending Provider Non-Staff Referring Provider Specialty: Medical Address: [address] [place] [address], [address] Phone: Email: Plan Of Care PT-OP-T Assessment and Plan Start: 05/03/22 14:19 Freq: Status: Active Protocol: Document 11/03/22 13:30 DCW (Rec: 11/03/22 14:14 DCW [id number]) Physical Therapy Assessment Goals Two Impairment Severely limited ROM due to pain and post-op protocol 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 : progressing FF 138deg, abd 92 deg, ER 70 deg, IR behind back L2. LTG Duration 01/03/23 One Impairment Pt does not have an appropriate home exercise program Short Term Goal (STG) Pt to be independent and compliant with an appropriate HEP 09/28/22: HEP side ABD, ER, standing TB rows, ext, IR/ER, added prone Is and Ys. STG Duration 12/03/22 Assessment Summary Assessment Pt still quite limited with ROM s/p manipulation, does feel better overall but very sore with any attempts at overhead movement. Continue to work on strength and overall ROM to improve daily function. Pt will likely benefit from continued skilled therapy. Physical Therapy Plan Frequency and Duration Frequency of Treatment 2x/Week Plan of Care Start Date 11/03/22 Plan of Care End Date 01/03/23 Therapeutic Interventions Therapeutic Interventions Home Exercise Program,Joint Mobilizations,Manual Therapy, Patient/Caregiver Education, Self-Care/Home Management,Soft Tissue Mobilization,Taping, Therapeutic Activities, Therapeutic Exercises Modalities Cold Pack/Ice Massage,Electric Stimulation,Hot Packs, Ultrasound Next Visit Focus/Plan Next Note Type Treatment Note Next Visit Plan POC: Increasing AROM, strengthening and stretching Plan of Care Dates Plan of Care Start Date 11/03/22 Plan of Care End Date 01/03/23 Electronically Signed by: Jose Aranda, PT 11/03/22 2489 If you are in agreement with this Plan of Care, please return a signed and dated copy. I have reviewed this Plan of Care and certify that the skilled therapy services above are required to meet the patient?s needs. Physician Signature Date Printed Name and Credentials Clinical Instructor Signature Printed Name and Credentials
--- NOTE | 2023-02-19 14:29 | PT.OPDS ---
Current Diagnoses Pain in left shoulder (11/03/22) Stiffness of left shoulder, not elsewhere classified (11/03/22) Impingement syndrome of left shoulder (11/03/22) Encounter for other specified surgical aftercare (11/03/22) Visit Care Team Role Provider Type Oswaldo Pickering MD Family Provider Physician Primary Care Provider Specialty: Internal Medicine Address: [address] [place] [address], [facility] [address], [place], [address] Email: [email or web address] Watkins PA-C Attending Provider Non-Staff Referring Provider Specialty: Medical Address: [address] [place] [address], [address] Phone: Email: Visit Number Visit Number 30 Discharge Summary PT-OP-B Current Condition Start: 05/03/22 14:19 Freq: Status: Active Protocol: Document 09/06/22 12:00 DCW (Rec: 09/06/22 14:16 DCW [id number]) Current Condition History of Current Condition Onset Date 04/24/22; 08/07/22 Current Complaints s/p left shoulder arthroscopic r/c debridement /c biceps repair History of Current Condition Pt is a 52 year old male with a long-standing history of bilateral shoulder pain presenting 9 days s/p left shoulder arthroscopic rotator cuff debridement with biceps repair. Per Dr Ortiz post-op protocol, pt currently in phase 1. Pt to continue using sling until two weeks post-op. Pt severely restricted with functional use of his left arm at ths moment, only has gotten out of sling for brief periods while sitting in his chair. Pt notes he lives with his mother, and needs to do most of the work around the house, but has obviously not been able to since surgery. ADDENDUM 09/06/22: Pt returns to skilled PT four weeks s/p manipulation under anesthesia and a second debridement following a plateau in progress after initial surgery . Surgical note reports there was extensive debridement performed. Pt reports he was told to continue to work on ROM, don't lift anything heavy, and that he was not required to wear a brace this time. Pt has been independently working on wall stretching, pendulums, and just keeping it moving and carrying things around. Notes he feels a lot better now than he had been following his first surgery, believes both and pain and mobility has improved since pre- manipulation. Treatment Goals Patient/Caregiver Goals I want complete use of my left arm back. Notes it would also be nice to be able to sleep on his left side. PT-OP-C Subjective Start: 05/03/22 14:19 Freq: Status: Active Protocol: Document 11/03/22 13:30 DCW (Rec: 11/03/22 14:14 DCW [id number]) OP-PT Subjective Patient Comments Patient Comments Pt still struggling reaching behid his back. Overall feels like he has made improvement, but feels there has been a bit of a recent decline, admits he hasn't been sleeping well. PT-OP-F Manual Assessment Start: 05/03/22 14:19 Freq: Status: Active Protocol: Document 11/03/22 13:30 DCW (Rec: 11/03/22 13:40 DCW [id number]) Manual Assessments Joint Mobility Assessment Joint Mobility Assessment Left GH joint mobility moderately limited secondary to post-op stiffness PT-OP-K Range of Motion Start: 05/03/22 14:19 Freq: Status: Active Protocol: Document 11/03/22 13:30 DCW (Rec: 11/03/22 13:40 DCW [id number]) Shoulder Goniometric Range of Motion Shoulder Left Active Shoulder ROM WFL No Testing Position Sitting Flexion 128 Abduction 93 External Rotation at 0 degrees Abduction 70 Internal Rotation Behind Back (text) L2 behind back Left Passive Shoulder ROM WFL No Testing Position Sitting Flexion 123 Abduction 101 External Rotation at 0 degrees Abduction 70 PT-OP-M Strength Start: 05/03/22 14:19 Freq: Status: Active Protocol: Document 11/03/22 13:30 DCW (Rec: 11/03/22 13:40 DCW [id number]) Shoulder Strength Shoulder Manual Muscle Testing Left Flexion 3- Fair- Abduction (C5) 3- Fair- External Rotation 4- Good- Internal Rotation 4- Good- PT-OP-T Assessment and Plan Start: 05/03/22 14:19 Freq: Status: Active Protocol: Document 02/19/23 14:29 DCW (Rec: 02/19/23 14:29 DCW [id number]) Physical Therapy Assessment Assessment Summary Assessment Pt has not been seen in three months, has no follow-up visits scheduled. Pt will be discharged from skilled PT at this time, will require a new referral in order to return. Physical Therapy Plan Discharge Physical Therapy Discharge Reasons No Longer Attending PT Next Visit Focus/Plan Next Note Type Discharge Summary
== END 2023-02-22 09:56 | disposition home or self-care (01) ==
LOC: PHYS 13:30
PROVIDERS: Family Provider Student in an Organized Health Care Education/Training Program; PCP Student in an Organized Health Care Education/Training Program; Referring Provider Physician Assistant; Visit Provider Physician Assistant
DX: M75.42 Impingement syndrome of left shoulder (principal); Z48.89 Encounter for other specified surgical aftercare; M25.512 Pain in left shoulder; M25.612 Stiffness of left shoulder, not elsewhere classified
CPT/HCPCS: 97110; 97140; 97161; 97164

== ENCOUNTER 2022-12-04 14:15 | Emergency (ER) | payer OTHER, MEDICAID, SELFPAY ==
[2022-03-12 01:57] VITALS: BMI 38.9
[2022-12-04 14:25] VITALS: BP 155/94; PULSE 89; RESP 18; TEMP 36.6; O2SAT 98; BMI 38.0
--- NOTE | 2022-12-04 15:06 | DI.RAD.S_ITS ---
PROCEDURE: XR CHEST 1V INDICATIONS: chest pain TECHNIQUE: One view of the chest was acquired. COMPARISON: [facility], , CHEST 1 VIEW, 01/19/2015, 15:00. FINDINGS: Surgical changes and devices: None. Lungs and pleura: Lungs are clear. No pleural effusions or pneumothorax. Mediastinum: Mediastinal contours appear normal. Heart size is normal. Bones and chest wall: No suspicious bony lesions. Overlying soft tissues appear unremarkable. IMPRESSION: No acute cardiopulmonary disease. Dictated by: Jyoti Siddiqi M.D. on 12/04/2022 at 16:36 Approved by: Jyoti Siddiqi M.D. on 12/04/2022 at 16:36
--- NOTE | 2022-12-04 15:08 | PC.NURSE ---
Patient states he has had right neck pain radiating down right arm. Reports some pain in right ear and right jaw. Patient denies injury and trauma. Patient presents slightly diaphoretic but reports that is normal with hit pain medications. Patietn denies chest pain, SOB.
[2022-12-04 15:27] LABS: Add Manual Diff / Slide Review NO; Basophils Absolute Auto 100 /uL (0-100); Basophils Percent Auto 1.1 % (0-2); Eosinophils Absolute Auto 200 /uL (0-450); Eosinophils Percent Auto 2.8 % (2-4); Hematocrit 40.7 % (41-53); Hemoglobin 13.7 g/dL (13.5-17.5); Lymphocytes Absolute Auto 1400 /uL (1100-4500); Lymphocytes Percent Auto 22.4 % (25-40); Mean Corpuscular HGB Conc 33.7 % (30-36); Mean Corpuscular Hemoglobin 29.1 PG (26-34); Mean Corpuscular Volume 86.3 fL (80-100); Monocytes Absolute Auto 500 /uL (0-900); Monocytes Percent Auto 8.2 % (3-14); Neutrophils Absolute Auto 4200 /uL (1500-7000); Neutrophils Percent Auto 65.5 % (50-75); Platelet Count 352 X10^3/uL (150-400); Red Blood Cell Count 4.72 X10^6/uL (4.5-5.9); Red Cell Distribution Width 13.3 % (11.6-14.8); White Blood Cell Count 6.4 X10^3/uL (4.5-11.0)
[2022-12-04 15:42] LABS: Alanine Aminotransferase 27 IU/L (<50); Albumin 4.3 g/dL (3.5-5.0); Albumin Globulin Ratio 1.6 (1.0-2.8); Alkaline Phosphatase 97 U/L (38-126); Aspartate Aminotransferase 26 IU/L (17-59); BUN Creatinine Ratio 23.8 (6-22); Bilirubin Total 1.1 mg/dL (0.2-1.3); Blood Urea Nitrogen 15 mg/dL (9-20); Calcium 8.8 mg/dL (8.4-10.2); Carbon Dioxide 25 mmol/L (22-32); Chloride 99 mmol/L (98-107); Creatine Kinase 65 U/L (55-170); Estimated Glomerular Filt Rate > 60 mL/min (>60); Globulin 2.7 g/dL (1.7-4.1); Glucose 180 mg/dL (70-100); HEMOLYSIS < 15 (0-50); Potassium 4.5 mmol/L (3.4-5.1); Sodium 134 mmol/L (137-145)
[2022-12-04 15:53] LABS: Troponin I < 0.012 ng/mL (0.01-0.034)
[2022-12-04 16:32] VITALS: BP 138/98; PULSE 85; O2SAT 96
--- NOTE | 2022-12-04 16:44 | ED_ITS ---
HPI - Neck Pain/Injury <Maggy Krishnamurthy PA-C - Last Filed: 12/04/22 19:24> General Chief Complaint: Neck Pain/Injury Stated Complaint: NECK PAIN Time Seen by Provider: 12/04/22 14:36 Mode of arrival: Ambulatory History of Present Illness HPI Narrative: 52-year-old male with a history of type 2 diabetes, chronic pain chronically on hydrocodone, hypertension presents with concern for right shoulder and neck pain and pain in his right ear. Patient states that this began fairly rapidly about a week ago with pain in his upper mid trapezius and his right back and side of his neck which also affected his right ear and the right side of his face including his teeth or sinuses at that time. He states that his teeth and sinuses no longer hurt he still has some ear pain on the right and states that he has tenderness when he presses on his trapezius muscle and pain that he describes as aching that he feels in his right shoulder and right upper arm. He states he has been taking all of his regular medications and otherwise has been in his usual state of health. His regular pain medications have not been helpful for his shoulder pain. He does not remember doing anything differently in terms of his activity that could have caused muscle injury or bony injury. He also does not think that he has any tooth problems and has not had any upper respiratory symptoms or sinus congestion or headaches in the past 1-4 weeks. He denies any chest pain, shortness of breath, change in appetite, nausea, vomiting, diarrhea, abdominal pain or any other symptoms. Related Data Home Medications Medication Instructions Recorded Confirmed atorvastatin 40 mg tablet 40 mg PO DAILY 08/25/19 11/13/22 flash glucose sensor (FreeStyle #1 ea 11/29/20 11/13/22 Amie 2 Sensor kit) duloxetine 30 mg capsule,delayed 30 mg PO DAILY 03/03/21 11/13/22 release insulin aspart U-100 100 unit/mL 24 unit SUBCUT AC 03/03/21 11/13/22 (3 mL) subcutaneous pen (Novolog FlexPen U-100 Insulin aspart) insulin detemir U-100 100 unit/mL See Rx Instructions .Route .COMPLEX 03/03/21 11/13/22 (3 mL) subcutaneous pen dulaglutide 0.75 mg/0.5 mL 0.75 mg SUBCUT QWEEK 02/08/22 11/13/22 subcutaneous pen injector losartan 50 mg tablet 50 mg PO DAILY 03/12/22 11/13/22 Previous Rx's Medication Instructions Recorded metformin 1,000 mg tablet 1,000 mg PO BID #60 tabs 05/11/22 gabapentin 800 mg tablet 1,200 mg PO TID #135 tabs 07/18/22 hydrocodone 7.5 mg-acetaminophen 1 tab PO Q6H PRN pain #100 tabs 11/12/22 325 mg tablet cyclobenzaprine 10 mg tablet 10 mg PO BID PRN muscle spasm #60 11/28/22 tabs baclofen 10 mg tablet 10 mg PO BID muscle 12/04/22 spasm/tightness 10 days #20 tabs diclofenac sodium 3 % topical gel 1 applic topical BID 10 days #100 12/04/22 grams Allergies Allergy/AdvReac Type Severity Reaction Status Date / Time lisinopril AdvReac Severe cough Verified 12/04/22 14:25 oxycodone AdvReac Severe Rage Verified 12/04/22 14:25 Review of Systems <Maggy Krishnamurthy PA-C - Last Filed: 12/04/22 19:24> Review of Systems Narrative: See HPI Patient History <Maggy Krishnamurthy PA-C - Last Filed: 12/04/22 19:24> Medical History Carpal tunnel syndrome (Unknown) Chronic pain syndrome (Unknown) Chronic right shoulder pain Hx of tendinitis (~2016) Neuropathic pain Primary insomnia (03/13/16) Shoulder pain (2010) Type 2 diabetes mellitus without complication, without long-term current use of insulin (12/15/15) Uncomplicated opioid dependence (03/06/17) Uncomplicated opioid dependence Surgical History History of hernia repair (06/07/17) Hx of hernia repair (2005) Family History Brother Age: 54 Diabetes mellitus Father Essential hypertension Leukemia Mother Alive and well Other Primary insomnia Social History household members: family Smoking Status: Never smoker alcohol intake: current substance use type: does not use Smoking Status: Never smoker alcohol intake frequency: holidays/special occasions only Substance Use Type: does not use Exam <Maggy Krishnamurthy PA-C - Last Filed: 12/04/22 19:24> Narrative Exam Narrative: GENERAL: 52 year old patient appears stated age. Well-developed patient, in mild distress. HEAD: Atraumatic. Normocephalic. EYES: Pupils equal round and reactive. Extraocular motions intact. No scleral icterus. No injection or drainage. ENT: Nose without bleeding, purulent drainage. Throat without erythema, tonsillar hypertrophy or exudate. Airway patent. The left TM is slightly injected, the right TM is slightly retracted, ear canals are normal in appearance. There is no tenderness over the frontal and maxillary sinuses, ther e are a few missing teeth but no tenderness with palpation percussion over upper and lower teeth on the right and no evidence of oral abscess inflammation or swelling/lesion. NECK: Trachea midline. Non tender CARDIOVASCULAR: Regular rate and rhythm without murmurs, gallops, or rubs. RESPIRATORY: Clear to auscultation. Breath sounds equal bilaterally. No wheezes, rales, or rhonchi. GASTROINTESTINAL: Abdomen protuberant, nondistended. EXTREMITIES: No edema or joint tenderness. BACK: There is tenderness over the upper trapezius over the neck and shoulder, there is no tenderness of the paraspinal muscles. Nontender without deformity or crepitance. No flank tenderness. NEURO: AOx3. SKIN: No rash or erythema of visible areas Initial Vital Signs Initial Vital Signs: Vital Signs Temperature 97.9 F 12/04/22 14:25 Pulse Rate 89 12/04/22 14:25 Respiratory Rate 18 12/04/22 14:25 Blood Pressure 155/94 H 12/04/22 14:25 Pulse Oximetry 98 12/04/22 14:25 Oxygen Delivery Method Room Air 12/04/22 14:25 <Victor Manuel Guzman DO - Last Filed: 12/09/22 20:54> Initial Vital Signs Initial Vital Signs: Vital Signs Temperature 97.9 F 12/04/22 14:25 Pulse Rate 89 12/04/22 14:25 Respiratory Rate 18 12/04/22 14:25 Blood Pressure 155/94 H 12/04/22 14:25 Pulse Oximetry 98 12/04/22 14:25 Oxygen Delivery Method Room Air 12/04/22 14:25 Course <Maggy Krishnamurthy PA-C - Last Filed: 12/04/22 19:24> Orders Ordered: ED Orders 12/04/22 15:06 XR chest 1V Stat 12/04/22 15:15 EKG-12 Lead Stat 12/04/22 15:16 Complete Blood Count AUTO DIFF Stat Comprehensive Metabolic Panel Stat Troponin & CK Cardiac Panel Stat Vital Signs Vital signs: Vital Signs - 8 hr 12/04/22 14:25 12/04/22 16:32 Temperature 97.9 F Pulse Rate 89 85 Respiratory Rate 18 Blood Pressure 155/94 H 138/98 H Pulse Oximetry 98 96 Oxygen Delivery Method Room Air Room Air <Victor Manuel Guzman DO - Last Filed: 12/09/22 20:54> Orders Ordered: ED Orders 12/04/22 15:06 XR chest 1V Stat 12/04/22 15:15 EKG-12 Lead Stat 12/04/22 15:16 Complete Blood Count AUTO DIFF Stat Comprehensive Metabolic Panel Stat Troponin & CK Cardiac Panel Stat Vital Signs Vital signs: Vital Signs - 8 hr 12/04/22 14:25 12/04/22 16:32 Temperature 97.9 F Pulse Rate 89 85 Respiratory Rate 18 Blood Pressure 155/94 H 138/98 H Pulse Oximetry 98 96 Oxygen Delivery Method Room Air Room Air MDM - Neck Pain/Injury <Maggy Krishnamurthy PA-C - Last Filed: 12/04/22 19:24> Differential Diagnosis Differential diagnosis: Likely strain of neck muscle and other (Trapezius muscle strain, muscle spasm) Medical Records Attestation: I reviewed the patient's medical records. Lab Data Attestation: I reviewed the patient's lab results. 12/04/22 15:16 12/04/22 15:16 Labs: Lab Results 12/04/22 12/04/22 Range/Units 15:16 15:16 WBC 6.4 (4.5-11.0) X10^3/uL RBC 4.72 (4.5-5.9) X10^6/uL Hgb 13.7 (13.5-17.5) g/dL Hct 40.7 L (41-53) % MCV 86.3 (80-100) fL MCH 29.1 (26-34) PG MCHC 33.7 (30-36) % RDW 13.3 (11.6-14.8) % Plt Count 352 (150-400) X10^3/uL Neut % (Auto) 65.5 (50-75) % Lymph % (Auto) 22.4 L (25-40) % Calhoun % (Auto) 8.2 (3-14) % Eos % (Auto) 2.8 (2-4) % Baso % (Auto) 1.1 (0-2) % Neut # (Auto) 4200 (7515-6502) /uL Lymph # (Auto) 1400 (7177-5737) /uL Calhoun # (Auto) 500 (0-900) /uL Eos # (Auto) 200 (0-450) /uL Baso # (Auto) 100 (0-100) /uL Sodium 134 L (137-145) mmol/L Potassium 4.5 (3.4-5.1) mmol/L Chloride 99 (98-107) mmol/L Carbon Dioxide 25 (22-32) mmol/L BUN 15 (9-20) mg/dL Creatinine 0.63 L (0.66-1.25) mg/dL Estimated GFR > 60 (>60) mL/min BUN/Creatinine Ratio 23.8 H (6-22) Glucose 180 H (70-100) mg/dL Calcium 8.8 (8.4-10.2) mg/dL Total Bilirubin 1.1 (0.2-1.3) mg/dL AST 26 (17-59) IU/L ALT 27 (<50) IU/L Alkaline Phosphatase 97 (38-126) U/L Total Creatine Kinase 65 (55-170) U/L Troponin I < 0.012 (0.01-0.034) ng/mL Total Protein 7.0 (6.3-8.2) g/dL Albumin 4.3 (3.5-5.0) g/dL Globulin 2.7 (1.7-4.1) g/dL Albumin/Globulin Ratio 1.6 (1.0-2.8) Imaging Data Chest x-ray: My Impression: Agree with Radiology interpretation Radiologist's Impression: [address] [address] XRay Report Signed Patient: José Starr MR#: [id number] : 1970 Acct:[id number] Age/Sex: 52 / M Date of Service: 12/04/22 Loc: ED Accession Number: [id number] ?? Procedure: XR chest 1V Ordering Provider: Maggy Krishnamurthy P.A-C PROCEDURE:? XR CHEST 1V ? INDICATIONS:? chest pain ? TECHNIQUE:? One view of the chest was acquired.? ? COMPARISON:? [facility], , CHEST 1 VIEW, 01/19/2015, 15:00. ? FINDINGS:? ? Surgical changes and devices:? None.? ? Lungs and pleura:? Lungs are clear.? No pleural effusions or pneumothorax.? ? Mediastinum:? Mediastinal contours appear normal.? Heart size is normal.? ? Bones and chest wall:? No suspicious bony lesions.? Overlying soft tissues appe ar unremarkable.? ? IMPRESSION:? No acute cardiopulmonary disease.? ? ? Dictated by: Jyoti Siddiqi M.D. on 12/04/2022 at 16:36 ? ? Approved by: Jyoti Siddiqi M.D. on 12/04/2022 at 16:36?? ECG Data Attestation: I personally reviewed and interpreted this ECG as follows: Interpretation: Sinus rhythm borderline first-degree block, heart rate [address] changes noted, incomplete right bundle-branch block Treatment and disposition Shared decision making:: Shared decision-making was used indeterminate patient's plan for care and evaluation in the emergency department and plan for outpatient follow-up MDM Narrative Medical decision making narrative: This is a 52-year-old male type 2 diabetic with chronic pain on chronic opioid medication who presents can send for right trapezius and neck pain for the past week that he described as a constant ache. Because patient describes this as a constant ache and also initially began with pain in his ear and right teeth with no findings on exam to explain his symptoms except for some tenderness over the trapezius additional evaluation today is done to rule out potential cardiac etiology, his EKG is unremarkable, his cardiac labs also return within normal limits as do his CBC CMP and chest x-ray. Counseled the patient to monitor for new or worsening symptoms, he does already have cyclobenzaprine which he takes typically at night before sleeping and he says he does not take this every day. We will try short course baclofen to be taken in the morning or mid day to see if this improves his symptoms, also prescription for diclofenac. Patient advised to continue his other medications as prescribed and follow up closely with his primary care provider. Return precautions provided, follow-up plan discussed, all questions answered. <Victor Manuel HannaDO kai - Last Filed: 12/09/22 20:54> Lab Data Labs: Lab Results 12/04/22 12/04/22 Range/Units 15:16 15:16 WBC 6.4 (4.5-11.0) X10^3/uL RBC 4.72 (4.5-5.9) X10^6/uL Hgb 13.7 (13.5-17.5) g/dL Hct 40.7 L (41-53) % MCV 86.3 (80-100) fL MCH 29.1 (26-34) PG MCHC 33.7 (30-36) % RDW 13.3 (11.6-14.8) % Plt Count 352 (150-400) X10^3/uL Neut % (Auto) 65.5 (50-75) % Lymph % (Auto) 22.4 L (25-40) % Calhoun % (Auto) 8.2 (3-14) % Eos % (Auto) 2.8 (2-4) % Baso % (Auto) 1.1 (0-2) % Neut # (Auto) 4200 (0970-4366) /uL Lymph # (Auto) 1400 (3564-1111) /uL Calhoun # (Auto) 500 (0-900) /uL Eos # (Auto) 200 (0-450) /uL Baso # (Auto) 100 (0-100) /uL Sodium 134 L (137-145) mmol/L Potassium 4.5 (3.4-5.1) mmol/L Chloride 99 (98-107) mmol/L Carbon Dioxide 25 (22-32) mmol/L BUN 15 (9-20) mg/dL Creatinine 0.63 L (0.66-1.25) mg/dL Estimated GFR > 60 (>60) mL/min BUN/Creatinine Ratio 23.8 H (6-22) Glucose 180 H (70-100) mg/dL Calcium 8.8 (8.4-10.2) mg/dL Total Bilirubin 1.1 (0.2-1.3) mg/dL AST 26 (17-59) IU/L ALT 27 (<50) IU/L Alkaline Phosphatase 97 (38-126) U/L Total Creatine Kinase 65 (55-170) U/L Troponin I < 0.012 (0.01-0.034) ng/mL Total Protein 7.0 (6.3-8.2) g/dL Albumin 4.3 (3.5-5.0) g/dL Globulin 2.7 (1.7-4.1) g/dL Albumin/Globulin Ratio 1.6 (1.0-2.8) Discharge Plan Departure Patient Disposition: Home Clinical Impression: Muscle strain of right upper back Activity Restrictions/Additional Instructions: *You have been diagnosed with [muscle strain/tightness] *What to do: *Please continue to take your regular medications as directed. [ 2] New medication prescriptions sent to your pharmacy: [Diclofenac gel and baclofen] [ ] New medication written as a paper prescription [ ] No new medications given *Please follow up with your primary care provider in 2-3 days, call for an ap pointment. Let them know you were seen in the Emergency Department and that we ask that you be seen in follow up. We will electronically transmit a record of today's note if your PCP is in our system. Due to history of diabetes and your symptoms we did do a basic cardiac workup today to further evaluate and case your symptoms were caused by a heart problem, everything here returned looking okay, I do suspect that your symptoms are related to muscle injury tightness and possibly muscle spasming. I encourage you to try heat and ice alternating, try the diclofenac gel prescribed you may also try the baclofen but do not take it at the same time as your other muscle relaxer, if you take your muscle relaxer at night every night I recommend he try the baclofen in the morning to see if this relieves her symptoms. Otherwise I encouraged you to follow up with your primary care provider regarding further evaluation and care. *If you do not have a primary care provider please contact the [facility] Resource line at [phone]. They will ask some questions about your medical history and help get you set up with a doctor in the community. *Return to Emergency Department if you should have any new, worsening or concerning symptoms, such as [fever greater than 101 F, shaking chills, worsening pain, persistent vomiting or other bothersome symptoms] Prescriptions: New baclofen 10 mg tablet 10 mg PO BID 10 Days Qty: 20 0RF diclofenac sodium 3 % gel 1 applic topical BID 10 Days Qty: 100 0RF No Action metformin 1,000 mg tablet 1,000 mg PO BID Qty: 60 0RF gabapentin 800 mg tablet 1,200 mg PO TID Qty: 135 5RF Rx Instructions: Take 1.5 tabs three times a day by mouth hydrocodone-acetaminophen 7.5-325 mg tablet 1 tab PO Q6H PRN (Reason: pain) Qty: 100 0RF Rx Instructions: EXEMPT Must last 30 days cyclobenzaprine 10 mg tablet 10 mg PO BID PRN (Reason: muscle spasm) Qty: 60 5RF dulaglutide 0.75 mg/0.5 mL pen injector 0.75 mg SUBCUT QWEEK (DME) FreeStyle Amie 2 Sensor Kit See Rx Instructions .ROUTE .MEDSUPPLY Qty: 1 Rx Instructions: As directed duloxetine 30 mg capsule,delayed release(DR/EC) 30 mg PO DAILY insulin detemir U-100 100 unit/mL (3 mL) insulin pen See Rx Instructions .ROUTE .COMPLEX Patient Comments: Sliding scale given by provider; pt unable to recall sliding scale info Rx Instructions: SUBCUT at bedtime based on sliding scale insulin aspart U-100 [Novolog FlexPen U-100 Insulin] 100 unit/mL (3 mL) insulin pen 24 unit SUBCUT AC losartan 50 mg tablet 50 mg PO DAILY atorvastatin 40 mg tablet 40 mg PO DAILY Referrals: Oswaldo Pickering MD [Primary Care Provider] - Stand Alone Forms: Patient Portal/API <Victor Manuel Guzman DO - Last Filed: 12/09/22 20:54> Cosign ED Attending Cosyuanature Attestation: I was immediately available in the department for consultation. Documentation has been reviewed. I agree with assessment and plan.
== END 2022-12-04 16:58 | disposition home or self-care (01) ==
PROVIDERS: Emergency Provider Student in an Organized Health Care Education/Training Program; Family Provider Student in an Organized Health Care Education/Training Program; PCP Student in an Organized Health Care Education/Training Program
DX: S29.012A Strain of muscle and tendon of back wall of thorax, initial encounter (principal); R07.9 Chest pain, unspecified; Z79.899 Other long term (current) drug therapy
CPT/HCPCS: 36415; 71045; 80053; 82550; 84484; 85025; 93005; 93010; 99283; 99284

== ENCOUNTER 2022-12-10 19:42 | Observation (INO) | payer OTHER, MEDICAID, SELFPAY ==
[2022-03-12 01:57] VITALS: BMI 38.9
[2022-12-10] VITALS (9 sets, daily range): BP systolic 123–134; BP diastolic 74–86; PULSE 94–114; RESP 9–20; TEMP 36.6; O2SAT 90–98; BMI 37.9
--- NOTE | 2022-12-10 20:26 | ED.NEUROSD ---
HPI - Neuro Symptoms/Deficit General Chief Complaint: Neuro Symptoms/Deficit Stated Complaint: R sided face droop Time Seen by Provider: 12/10/22 19:45 Source: patient Mode of arrival: Ambulatory History of Present Illness HPI Narrative: 52-year-old male nonsmoker with history of diabetes, hypertension, hyperlipidemia returns for the 2nd time in a week or so. He was here with chief complaint of back, neck, shoulder and ear pain gradually worsening about 1 week ago. He was treated for chronic neck and back pain but today presents with a chief complaint of right-sided facial droop for about 3 days. He states that at the onset of his facial drooping he had a severe headache in the occipital region of his head but also has right earache and feels like the right side of his face is swelling. He admits to this facial droop and associated trouble with speech as well as difficulty walking in a straight line. He denies any obvious blurred vision or trouble finding words he just states there slurred when coming out. Denies numbness or tingling of his extremities. On Anticoagulants: No Related Data Home Medications Medication Instructions Recorded Confirmed flash glucose sensor (FreeStyle #1 ea 11/29/20 11/13/22 Amie 2 Sensor kit) insulin aspart U-100 100 unit/mL See Rx Instructions .Route .COMPLEX 03/03/21 12/11/22 (3 mL) subcutaneous pen (Novolog FlexPen U-100 Insulin aspart) insulin detemir U-100 100 unit/mL See Rx Instructions .Route .COMPLEX 03/03/21 11/13/22 (3 mL) subcutaneous pen dulaglutide 0.75 mg/0.5 mL 0.75 mg SUBCUT QWEEK 02/08/22 11/13/22 subcutaneous pen injector atorvastatin 40 mg tablet 40 mg PO DAILY 12/11/22 12/11/22 baclofen 10 mg tablet 10 mg PO BID muscle spasm 12/11/22 12/11/22 cyclobenzaprine 10 mg tablet 10 mg PO BID PRN muscle spasm 12/11/22 12/11/22 dulaglutide 3 mg/0.5 mL 3 mg SUBCUT 12/11/22 subcutaneous pen injector ([facility]) duloxetine 30 mg capsule,delayed 30 mg PO DAILY 12/11/22 12/11/22 release gabapentin 800 mg tablet 1,200 mg PO 3XD 12/11/22 12/11/22 hydrocodone 7.5 mg-acetaminophen 1 tab PO Q6H PRN pain 12/11/22 12/11/22 325 mg tablet losartan 100 mg tablet 100 mg PO DAILY 12/11/22 12/11/22 metformin 1,000 mg tablet 1,000 mg PO BID 12/11/22 12/11/22 Previous Rx's Medication Instructions Recorded diclofenac sodium 3 % topical gel 1 applic topical BID 10 days #100 12/04/22 grams Allergies Allergy/AdvReac Type Severity Reaction Status Date / Time lisinopril AdvReac Severe cough Verified 12/10/22 20:00 oxycodone AdvReac Severe Rage Verified 12/10/22 20:00 Review of Systems Review of Systems Narrative: GENERAL: Denies chills, fatigue, malaise, fever, sweats. HEENT: Denies sinus pain, ear pain, sore throat, difficulty swallowing, dizziness. RESPIRATORY: Denies dyspnea, cough, wheezing, hemoptysis, sputum. CARDIOVASCULAR: Denies chest pain, palpitations, orthopnea, edema, GASTROINTESTINAL: Denies nausea, vomiting, abdominal pain, diarrhea, constipation, melena. : Denies dysuria, frequency, incontinence, hematuria, urinary retention. MUSCULOSKELETAL: denies weakness, joint pain, or bony pain SKIN: Denies rash, skin lesions, or other NEUROLOGIC: See HPI PSYCHIATRIC: No concerning psychosocial issues. 12 point review of systems is negative except for those stated above Hematologic/Lymphatic On Anticoagulants: No Patient History Medical History Carpal tunnel syndrome (Unknown) Chronic pain syndrome (Unknown) Chronic right shoulder pain Hx of tendinitis (~2016) Neuropathic pain Primary insomnia (03/13/16) Shoulder pain (2010) Type 2 diabetes mellitus without complication, without long-term current use of insulin (12/15/15) Uncomplicated opioid dependence (03/06/17) Uncomplicated opioid dependence Surgical History History of hernia repair (06/07/17) Hx of hernia repair (2005) Family History Brother Age: 55 Diabetes mellitus Father Essential hypertension Leukemia Mother Alive and well Other Primary insomnia Social History household members: family and friend(s) Smoking Status: Never smoker alcohol intake: current substance use type: does not use Smoking Status: Never smoker alcohol intake frequency: holidays/special occasions only Substance Use Type: does not use Exam Narrative Exam Narrative: GENERAL: [52] year old patient appears stated age. Well-developed patient, in mild distress. HEAD: Atraumatic. Normocephalic. EYES: Pupils equal round and reactive. Extraocular motions intact. No scleral icterus. No injection or drainage. ENT: Nose without bleeding, purulent drainage. Throat without erythema, tonsillar hypertrophy or exudate. Airway patent. NECK: Trachea midline. Non tender CARDIOVASCULAR: Regular rate and rhythm without murmurs, gallops, or rubs. RESPIRATORY: Clear to auscultation. Breath sounds equal bilaterally. No wheezes, rales, or rhonchi. GASTROINTESTINAL: Abdomen soft, non-tender, nondistended. EXTREMITIES: No edema or joint tenderness. BACK: Nontender without deformity or crepitance. No flank tenderness. NEURO: AOx3. SKIN: No rash or erythema of visible areas Initial Vital Signs Initial Vital Signs: Vital Signs Temperature 97.9 F 12/10/22 19:53 Pulse Rate 114 H 12/10/22 19:53 Respiratory Rate 20 12/10/22 19:53 Blood Pressure 123/86 12/10/22 19:53 Pulse Oximetry 95 12/10/22 19:53 Oxygen Delivery Method Room Air 12/10/22 19:53 Scores NIH Stroke Scale Level of Conciousness: Alert, keenly responsive Ask month/age: Answers both questions correctly. Open/close eyes, close hand: Performs both tasks correctly Best gaze horizontal: Normal Visual rapp: No visual loss Facial palsy: Minor paralysis, flattened nasolabial fold, asymmetry on smiling Left arm drift: No drift for full 10 sec Right arm drift: No drift for full 10 sec Left leg drift: No drift for full 5 sec Right leg drift: No drift for full 5 sec Limb ataxia: Absent Sensory on face/arms/legs: Mild to moderate sensory loss, can tell touch Best language: No aphasia, normal Dysarthria: Mild to mod,some slurring Extinction or inattention: No abnormality Total NIH Stroke scale score: 3 Course Orders Ordered: ED Orders 12/10/22 20:24 Complete Blood Count AUTO DIFF Stat Comprehensive Metabolic Panel Stat Ethanol (ETOH) Stat Magnesium Stat PTT Partial Thromboplastin Bandar Stat Prothrombin Time INR Stat Troponin & CK Cardiac Panel Stat 12/10/22 20:27 CT angio head and neck Stat XR chest 1V Stat Urine Drug Screen, Rapid Stat EKG-12 Lead Stat EKG-12 Lead Stat 12/10/22 20:56 CT head/brain wo con Stat Acetaminophen (Acetaminophen 325 Mg Tablet) 650 mg PO Q6H PRN PRN Reason: Fever/Mild Pain (1-3) Hydrocodone Bitart/Acetaminophen (Hydrocodone/Acet 5/325 Tablet) 1 tab PO Q4H PRN PRN Reason: Pain, Moderate (4-6) Hydrocodone Bitart/Acetaminophen (Hydrocodone/Acet 5/325 Tablet) 2 tab PO Q4H PRN PRN Reason: Pain, Severe (7-10) Al Hydrox/Mg Hydrox/Simethicone (Mag Hydrox/Alum/Simeth 30 Ml Udc) 30 ml PO Q6HR PRN PRN Reason: Dyspepsia Dextrose (Dextrose 50 % In Water 25 Gm/50 Ml Syringe) 25 gm IV PRN PRN; Protocol PRN Reason: Hypoglycemia Enoxaparin Sodium (Enoxaparin 40 Mg/0.4 Ml Syringe) 40 mg SUBCUT DAILY JORGE Ibuprofen (Ibuprofen 400 Mg Tablet) 400 mg PO Q4H PRN PRN Reason: Pain, Mild (1-3) Insulin Human Lispro (Insulin Lispro 100 Unit/Ml 3ml Vial) 0 unit SUBCUT ACHS JORGE Naloxone HCl (Naloxone 0.4 Mg/Ml Vial) 0.2 mg IV Q2MIN PRN PRN Reason: Opiate Reversal Ondansetron HCl (Ondansetron 4 Mg/2 Ml Inj) 4 mg IV NOW PRN PRN Reason: Nausea And Vomiting Ondansetron HCl (Ondansetron 4 Mg Odt) 4 mg SL NOW PRN PRN Reason: Nausea And Vomiting Ondansetron HCl (Ondansetron 4 Mg Odt) 4 mg PO Q8HR PRN PRN Reason: Nausea And Vomiting Discontinued Medications Aspirin (Aspirin Ec 325 Mg Tablet) 325 mg PO NOW ONE Stop: 12/10/22 23:33 Last Admin: 12/11/22 00:19 Dose: 325 mg Documented By: KLARISSA Vital Signs Vital signs: Vital Signs - 8 hr 12/10/22 20:30 12/10/22 21:19 12/10/22 21:20 Pulse Rate 97 H 98 H 99 H Respiratory Rate 18 17 Blood Pressure 134/74 Pulse Oximetry 98 91 93 Oxygen Delivery Method Room Air 12/10/22 21:20 12/10/22 21:30 12/10/22 22:00 Pulse Rate 101 H 95 H Respiratory Rate 12 9 L Blood Pressure 126/85 Pulse Oximetry 90 L 91 Oxygen Delivery Method 12/10/22 22:30 12/10/22 23:00 12/10/22 23:30 Pulse Rate 97 H 95 H 94 H Respiratory Rate 13 14 18 Blood Pressure Pulse Oximetry 90 L 91 93 Oxygen Delivery Method 12/11/22 00:00 Pulse Rate 96 H Respiratory Rate 13 Blood Pressure Pulse Oximetry 91 Oxygen Delivery Method MDM - Neuro Symptoms/Deficit Lab Data 12/10/22 20:24 12/10/22 20:24 Labs: Lab Results 12/10/22 12/10/22 12/10/22 Range/Units 20:24 20:24 20:24 WBC 10.4 (4.5-11.0) X10^3/uL RBC 5.24 (4.5-5.9) X10^6/uL Hgb 15.2 (13.5-17.5) g/dL Hct 44.6 (41-53) % MCV 85.1 (80-100) fL MCH 29.0 (26-34) PG MCHC 34.1 (30-36) % RDW 13.4 (11.6-14.8) % Plt Count 491 H (150-400) X10^3/uL Neut % (Auto) 63.7 (50-75) % Lymph % (Auto) 26.9 (25-40) % Win[place] % (Auto) 6.1 (3-14) % Eos % (Auto) 2.0 (2-4) % Baso % (Auto) 1.3 (0-2) % Neut # (Auto) 6600 (9645-7203) /uL Lymph # (Auto) 2800 (9245-1497) /uL Winona # (Auto) 600 (0-900) /uL Eos # (Auto) 200 (0-450) /uL Baso # (Auto) 100 (0-100) /uL PT 13.6 H (10.1-12.7) SECONDS INR 1.2 (0.9-1.3) APTT 32 (26-36) SECONDS Sodium 132 L (137-145) mmol/L Potassium 4.1 (3.4-5.1) mmol/L Chloride 98 (98-107) mmol/L Carbon Dioxide 21 L (22-32) mmol/L BUN 14 (9-20) mg/dL Creatinine 0.80 (0.66-1.25) mg/dL Estimated GFR > 60 (>60) mL/min BUN/Creatinine Ratio 17.5 (6-22) Glucose 230 H (70-100) mg/dL Calcium 9.4 (8.4-10.2) mg/dL Magnesium 1.7 (1.6-2.3) mg/dL Total Bilirubin 1.6 H (0.2-1.3) mg/dL AST 22 (17-59) IU/L ALT 22 (<50) IU/L Alkaline Phosphatase 100 (38-126) U/L Total Creatine Kinase 67 (55-170) U/L Troponin I < 0.012 (0.01-0.034) ng/mL Total Protein 7.7 (6.3-8.2) g/dL Albumin 4.5 (3.5-5.0) g/dL Globulin 3.2 (1.7-4.1) g/dL Albumin/Globulin Ratio 1.4 (1.0-2.8) Ethyl Alcohol ( - 10) mg/dL 12/10/22 Range/Units 20:24 WBC (4.5-11.0) X10^3/uL RBC (4.5-5.9) X10^6/uL Hgb (13.5-17.5) g/dL Hct (41-53) % MCV (80-100) fL MCH (26-34) PG MCHC (30-36) % RDW (11.6-14.8) % Plt Count (150-400) X10^3/uL Neut % (Auto) (50-75) % Lymph % (Auto) (25-40) % Win[place] % (Auto) (3-14) % Eos % (Auto) (2-4) % Baso % (Auto) (0-2) % Neut # (Auto) (3283-3610) /uL Lymph # (Auto) (7500-9324) /uL Winona # (Auto) (0-900) /uL Eos # (Auto) (0-450) /uL Baso # (Auto) (0-100) /uL PT (10.1-12.7) SECONDS INR (0.9-1.3) APTT (26-36) SECONDS Sodium (137-145) mmol/L Potassium (3.4-5.1) mmol/L Chloride (98-107) mmol/L Carbon Dioxide (22-32) mmol/L BUN (9-20) mg/dL Creatinine (0.66-1.25) mg/dL Estimated GFR (>60) mL/min BUN/Creatinine Ratio (6-22) Glucose (70-100) mg/dL Calcium (8.4-10.2) mg/dL Magnesium (1.6-2.3) mg/dL Total Bilirubin (0.2-1.3) mg/dL AST (17-59) IU/L ALT (<50) IU/L Alkaline Phosphatase (38-126) U/L Total Creatine Kinase (55-170) U/L Troponin I (0.01-0.034) ng/mL Total Protein (6.3-8.2) g/dL Albumin (3.5-5.0) g/dL Globulin (1.7-4.1) g/dL Albumin/Globulin Ratio (1.0-2.8) Ethyl Alcohol < 10 ( - 10) mg/dL MDM Narrative Medical decision making narrative: CC: 52-year-old male with right-sided facial weakness, numbness, trouble with speech and ataxia Complicating co-morbidities: Hypertension, hyperlipidemia, diabetes Data collected from: Patient Medical records reviewed: Prior notes reviewed in our EMR Differential considered, but not limited to: Stroke versus whitney palsy atypical migraine versus versus other Exam documented above, pertinent findings include: Right-sided facial weakness, numbness, associated slurred speech Lab Test results independently reviewed as above. Pertinent findings: Independently reviewed EKG as above Imaging studies independently reviewed: CT of the head and CTA of the head and neck without acute abnormalities Scores Used: NIHSS Consultations: discussed with hospitalist (Dr. Booth) happy to accept on his service Treatments: ASA Discussion: Patient with 3 days of neurologic symptoms is not activated as a code stroke as he is outside of any tPA window and does not demonstrate physical exam findings consistent with activation of code IR. He has had some pain which is not currently present, given pain and neurologic symptoms angiography was performed which thankfully demonstrates no obvious stroke or dissection. Whitney palsy certainly considered but there is some wrinkling of the forehead on the right side, this in the presence of difficulty walking straight line raises my suspicion for possible underlying neurologic event. Patient requires hospitalization for further evaluation including MRI, echocardiogram Discharge Plan Departure Patient Disposition: Admitted as Observation Clinical Impression: Facial weakness, Dysarthria, Ataxia Admit Date/Time: 12/11/22 00:26 Admit Provider: Grant Cooley
--- NOTE | 2022-12-10 20:27 | DI.CT.S_ITS ---
PROCEDURE: CT ANGIO HEAD AND NECK INDICATIONS: R facial droop x3 days, severe headache a few days ago TECHNIQUE: After the administration of intravenous contrast, 1 mm thick sections acquired from the aortic arch through the [place] of [place]. 3-dimensional whgvdiz-soenqktou-mukjriqhts (MIP) and/or volume rendering reformats were acquired of the central intracranial vasculature and neck separately. For radiation dose reduction, the following was used: automated exposure control, adjustment of mA and/or kV according to patient size. COMPARISON: [facility], CT, CT HEAD/BRAIN WO CON, 12/10/2022, 21:11. FINDINGS: Image quality: Diagnostic. BRAIN: CSF spaces: Basal cisterns are patent. No extra-axial fluid collections. Ventricles are normal in size and shape. Brain: No intracranial hematoma collections, mass, or mass effect. Jaramillo-white matter interface appears preserved. Skull and face: Calvarium and facial bones appear intact, without suspicious lesions. Orbits appear normal. Sinuses: Sinuses and mastoids are clear. HEAD CT ANGIOGRAPHY: Anterior circulation: Intracranial internal carotid arteries are normal in size and appear patent bilaterally. There is mild atherosclerotic calcification along the cavernous segments of the internal carotid arteries. The paired anterior cerebral arteries appear patent bilaterally. The anterior communicating artery also appears patent. The middle cerebral arteries appear patent bilaterally. No high-grade stenosis, occlusion, or filling defects. No cerebral aneurysms identified. Posterior circulation: Visualized portions of the vertebral arteries demonstrate normal caliber, and join to form a patent basilar artery. The posterior cerebral arteries appears patent bilaterally. No high-grade stenosis, occlusion, or filling defects. No cerebral aneurysms identified. NECK CT ANGIOGRAPHY: Carotid system: The great vessels demonstrate a conventional anatomy as they arise from the aortic arch. The origins of the common carotid arteries appear patent. The common carotid arteries demonstrate normal caliber and courses. There is mild partially calcified plaque in the carotid bulbs with mild narrowing of less than 50%. The subsequent internal carotid arteries are tortuous in appearance but patent bilaterally. Posterior circulation: The origins of the vertebral arteries demonstrate calcified plaque with associated moderate narrowing bilaterally. The more superior extracranial portions of both vertebral arteries demonstrate normal courses and calibers. They join to form a patent basilar artery. Soft tissues: Visualized neck soft tissues demonstrate no suspicious abnormalities. Bones: No suspicious bony lesions. Visualized cervical spine demonstrates straightening of the cervical lordosis. There is multilevel degenerative disc disease and facet joint arthropathy. IMPRESSION: 1. No high-grade stenosis or occlusion of the central intracranial arteries. 2. No high-grade stenosis or occlusion of the head and neck arteries. There is moderate narrowing at the origins of the vertebral arteries bilaterally. 3. Mild narrowing in the carotid bulbs bilaterally. Any quantitative measurements of stenosis were performed using NASCET criteria. Dictated by: Cameron Fishman M.D. on 12/10/2022 at 21:45 Approved by: Cameron Fishman M.D. on 12/10/2022 at 21:49
--- NOTE | 2022-12-10 20:27 | DI.RAD.S_ITS ---
PROCEDURE: XR CHEST 1V INDICATIONS: Possible stroke TECHNIQUE: One view of the chest was acquired. COMPARISON: [facility], CR, XR CHEST 1V, 12/04/2022, 15:29. FINDINGS: Surgical changes and devices: None. Lungs and pleura: Lungs are clear. No pleural effusions or pneumothorax. Mediastinum: Mediastinal contours appear normal. Heart size is normal. Bones and chest wall: No suspicious bony lesions. Overlying soft tissues appear unremarkable. IMPRESSION: 1. No acute cardiopulmonary disease. Dictated by: Cameron Fishman M.D. on 12/10/2022 at 22:50 Approved by: Cameron Fishman M.D. on 12/10/2022 at 22:50
[2022-12-10 20:40] LABS: INR 1.2 (0.9-1.3); Prothrombin Time 13.6 SECONDS (10.1-12.7)
[2022-12-10 20:41] LABS: Add Manual Diff / Slide Review NO; Basophils Absolute Auto 100 /uL (0-100); Basophils Percent Auto 1.3 % (0-2); Eosinophils Absolute Auto 200 /uL (0-450); Hematocrit 44.6 % (41-53); Hemoglobin 15.2 g/dL (13.5-17.5); Lymphocytes Absolute Auto 2800 /uL (1100-4500); Lymphocytes Percent Auto 26.9 % (25-40); Mean Corpuscular HGB Conc 34.1 % (30-36); Mean Corpuscular Volume 85.1 fL (80-100); Monocytes Absolute Auto 600 /uL (0-900); Monocytes Percent Auto 6.1 % (3-14); Neutrophils Absolute Auto 6600 /uL (1500-7000); Neutrophils Percent Auto 63.7 % (50-75); Platelet Count 491 X10^3/uL (150-400); Red Blood Cell Count 5.24 X10^6/uL (4.5-5.9); Red Cell Distribution Width 13.4 % (11.6-14.8); White Blood Cell Count 10.4 X10^3/uL (4.5-11.0)
[2022-12-10 20:43] LABS: PTT Partial Thromboplastin Tim 32 SECONDS (26-36)
[2022-12-10 20:44] LABS: Alanine Aminotransferase 22 IU/L (<50); Albumin 4.5 g/dL (3.5-5.0); Albumin Globulin Ratio 1.4 (1.0-2.8); Alkaline Phosphatase 100 U/L (38-126); Aspartate Aminotransferase 22 IU/L (17-59); BUN Creatinine Ratio 17.5 (6-22); Bilirubin Total 1.6 mg/dL (0.2-1.3); Blood Urea Nitrogen 14 mg/dL (9-20); Calcium 9.4 mg/dL (8.4-10.2); Carbon Dioxide 21 mmol/L (22-32); Chloride 98 mmol/L (98-107); Creatine Kinase 67 U/L (55-170); Estimated Glomerular Filt Rate > 60 mL/min (>60); Globulin 3.2 g/dL (1.7-4.1); Glucose 230 mg/dL (70-100); HEMOLYSIS 21 (0-50); Magnesium 1.7 mg/dL (1.6-2.3); Potassium 4.1 mmol/L (3.4-5.1); Sodium 132 mmol/L (137-145); Total Protein 7.7 g/dL (6.3-8.2)
[2022-12-10 20:56] LABS: Troponin I < 0.012 ng/mL (0.01-0.034)
--- NOTE | 2022-12-10 20:56 | DI.CT.S_ITS ---
PROCEDURE: CT HEAD/BRAIN WO CON INDICATIONS: severe OLVERA, facial droop x 3 days TECHNIQUE: Noncontrast 4.5 mm thick angled axial sections acquired from the foramen magnum to the vertex, with coronal and sagittal reformats. For radiation dose reduction, the following was used: automated exposure control, adjustment of mA and/or kV according to patient size. COMPARISON: [facility], CT, CT ANGIO HEAD AND NECK, 12/10/2022, 21:11. FINDINGS: Image quality: Excellent. CSF spaces: Basal cisterns are patent. No extra-axial fluid collections. Ventricles are normal in size and shape. Brain: No intracranial hemorrhage, mass, or mass effect. Jaramillo-white matter interface appears preserved. Skull and face: Calvarium and visualized facial bones are intact, without suspicious lesions. Sinuses: Visualized sinuses and mastoids are clear. IMPRESSION: 1. No acute intracranial abnormality. Dictated by: Cameron Fishman M.D. on 12/10/2022 at 21:27 Approved by: Cameron Fishman M.D. on 12/10/2022 at 21:28
[2022-12-10 21:04] LABS: Ethanol (ETOH) < 10 mg/dL
[2022-12-11] VITALS: PULSE 96; RESP 13; O2SAT 91
--- NOTE | 2022-12-11 | DI.ECHO.S_ITS ---
[place] [facility]---------+ [facility] +---------+ : : [address] : : : : [id number] : : : : Phone: [phone] Echocardiogram Report + + :Name: TAURUS ALBARRAN Study Date: 12/11/2022 Height: 71 in : :[facility] ReadingLocation: Weight: 269 lb : : Gender: Male BSA: 2.4 m2 : :: 1970 Age: 52 yrs BP: 141/89 mmHg: :Reason For Study: Stroke : :Ordering Physician: ABNER, : :ABELARDO Norris Performed By: Colleen Bagley : :Referring: ABELARDO LEVINE : + + Interpretation Summary Mild-moderate concentric left ventricular hypertrophy with ejection fraction 60-65%. No significant valvular abnormality. The ascending aorta is mildly enlarged. Injection of contrast documented an interatrial shunt. KING is recommened. Procedure: A two-dimensional transthoracic echocardiogram with color flow and Doppler was performed. The study quality was technically adequate. There is no prior echocardiogram noted for this patient. A saline contrast injection was performed to assess for cardiac shunting. The patient was in normal sinus rhythm during the exam. Left Ventricle: The left ventricle is normal in size. There is mild-moderate concentric left ventricular hypertrophy. The ejection fraction is estimated to be 60-65%. There are no focal wall motion abnormalities. Diastolic function could not be accurately assessed due to unobtainable data. Right Ventricle: The right ventricle is not well visualized. Right ventricular function cannot be assessed due to poor image quality. Atria: The left atrial size is normal. Right atrium not well visualized. Injection of contrast documented an interatrial shunt. Mitral Valve: The mitral valve is normal. There is no mitral valve stenosis. There is no mitral regurgitation noted. Aortic Valve: The aortic valve is trileaflet. The aortic valve opens well. There is no aortic valve stenosis. There is trace aortic regurgitation. Tricuspid Valve: The tricuspid valve is normal. There is no tricuspid stenosis. No tricuspid regurgitation. Pulmonic Valve: The pulmonic valve leaflets are thin and pliable; valve motion is normal. There is no pulmonic valvular stenosis. There is no pulmonic valvular regurgitation. Great Vessels: The aortic root is moderately dilated. The ascending aorta is mildly enlarged. The pulmonary artery is normal size. The IVC is of normal diameter and collapses greater than 50% with a sniff. This suggests a low right atrial pressure of 3 mm Hg. Pericardium/ Pleura There is no pericardial effusion. There is no pleural effusion. MMode/2D Measurements & Calculations LVIDd: 3.6 cm LVOT diam: 2.3 cm LVIDs: 2.5 cm Ao root diam: 4.7 cm FS: 30.6 % asc Aorta Diam: 4.3 cm IVSd: 1.4 cm LVPWd: 1.7 cm LV britt. diameter/BSA (cm/m^2): 1.5 LV sys. diameter/BSA (cm/m^2): 1.0 LA A2 area: 12.6 cm2 LVLs ap4: 5.6 cm LA A4 area: 9.3 cm2 LA length (vol): 5.0 cm LA vol: 19.9 ml LA vol index: 8.3 ml/m2 LVLd ap2: 6.6 cm LVLs ap2: 5.5 cm Doppler Measurements & Calculations Ao V2 max: 114.0 cm/sec LVOT Max Eliseo: 82.8 cm/sec Ao V2 mean: 74.7 cm/sec LV V1 max P.7 mmHg Ao max P.0 mmHg LV V1 VTI: 15.8 cm Ao mean P.0 mmHg RAMONITA(I,D): 3.3 cm2 Ao V2 VTI: 20.1 cm RAMONITA(V,D): 3.0 cm2 sev ratio: 0.79 RAMONITA indexed to BSA (cm^2/m^2): 1.4 Med Peak E' Eliseo: 3.1 cm/sec PA V2 max: 86.9 cm/sec Lat Peak E' Eliseo: 4.8 cm/sec PA V2 mean: 60.2 cm/sec PA mean P.0 mmHg SV(LVOT): 65.6 ml AV VR_phl: 0.73 RAMONITA(VTI)/BSA_phl: 1.4 Electronically signed by: Lillian Mills on Reading Physician:12/11/2022 09:44 AM
[2022-12-11] MEDS: ASPIRIN EC 325 MG TABLET PO (00:19)
[2022-12-11 00:30] VITALS: PULSE 97; RESP 13; O2SAT 90
[2022-12-11 00:46] VITALS: BMI 37.6
[2022-12-11 01:00] VITALS: PULSE 104; RESP 13; O2SAT 93
--- NOTE | 2022-12-11 01:13 | DI.MRI.S_ITS ---
PROCEDURE: MR HEAD/BRAIN WO CON INDICATIONS: suspected CVA (cerebellar) TECHNIQUE: Noncontrast axial T1 spin echo, axial T2 fast spin echo, sagittal and axial FLAIR, coronal T2 fast spin echo, axial gradient echo, axial diffusion and ADC through the brain. COMPARISON: None. FINDINGS: Image quality: Excellent. CSF Spaces: Basal cisterns are patent. No extra-axial fluid collections. Ventricles are normal in size and shape. Brain: No intracranial masses or hemorrhage. Small focus of encephalomalacia and gliosis within the posterior right frontal lobe near the vertex. Jaramillo/white matter interface is normal. Brainstem appears normal. Diffusion-weighted images demonstrate no acute ischemic insult. Normal intravascular flow voids are present. Skull and face: Calvarium has normal marrow signal. Orbits appear normal. Sinuses: Tiny left maxillary sinus mucous retention cyst. The paranasal sinuses are otherwise clear. Right mastoid effusion.. IMPRESSION: 1. No acute or subacute infarct. 2. Small focus of encephalomalacia and gliosis within the posterior right frontal lobe near the vertex, may represent sequela of prior infarct or other insult. 3. Right mastoid effusion. Dictated by: Neri Shah M.D. on 12/11/2022 at 10:00 Approved by: Neri Shah M.D. on 12/11/2022 at 10:03
[2022-12-11 01:34] VITALS: BP 141/89; PULSE 94; RESP 20; TEMP 36.2; O2SAT 96
[2022-12-11 04:00] VITALS: BP 138/89; PULSE 96; RESP 17; TEMP 36.5; O2SAT 98
--- NOTE | 2022-12-11 04:30 | P.HP_ITS ---
History of Present Illness History of Present Illness Date Patient Seen: 12/11/22 Chief complaint: R sided face droop Narrative: 52 y/o with PMH of T2IDDM, HTN and HLD - recently seen in ED for Upper back, neck and Rt ear pain - presents with slurred speech, difficulty walking, art occipital headache - Admitted with suspected occipital stroke [facility] Medical History Carpal tunnel syndrome (Unknown) Chronic pain syndrome (Unknown) Chronic right shoulder pain Hx of tendinitis (~2016) Neuropathic pain Primary insomnia (03/13/16) Shoulder pain (2010) Type 2 diabetes mellitus without complication, without long-term current use of insulin (12/15/15) Uncomplicated opioid dependence (03/06/17) Uncomplicated opioid dependence Surgical History History of hernia repair (06/07/17) Hx of hernia repair (2005) Family History Brother Age: 55 Diabetes mellitus Father Essential hypertension Leukemia Mother Alive and well Other Primary insomnia Social History household members: family and friend(s) Smoking Status: Never smoker alcohol intake: current substance use type: does not use Meds Home Medications and Allergies Home Medications Medication Instructions Recorded Confirmed Type flash glucose sensor (FreeStyle #1 ea 11/29/20 11/13/22 History Amie 2 Sensor kit) insulin aspart U-100 100 unit/mL See Rx Instructions .Route .COMPLEX 03/03/21 12/11/22 History (3 mL) subcutaneous pen (Novolog FlexPen U-100 Insulin aspart) insulin detemir U-100 100 unit/mL See Rx Instructions .Route .COMPLEX 03/03/21 11/13/22 History (3 mL) subcutaneous pen dulaglutide 0.75 mg/0.5 mL 0.75 mg SUBCUT QWEEK 02/08/22 11/13/22 History subcutaneous pen injector diclofenac sodium 3 % topical gel 1 applic topical BID 10 days #100 12/04/22 Rx grams atorvastatin 40 mg tablet 40 mg PO DAILY 12/11/22 12/11/22 History baclofen 10 mg tablet 10 mg PO BID muscle spasm 12/11/22 12/11/22 History cyclobenzaprine 10 mg tablet 10 mg PO BID PRN muscle spasm 12/11/22 12/11/22 History dulaglutide 3 mg/0.5 mL 3 mg SUBCUT 12/11/22 History subcutaneous pen injector (Trulicity) duloxetine 30 mg capsule,delayed 30 mg PO DAILY 12/11/22 12/11/22 History release gabapentin 800 mg tablet 1,200 mg PO 3XD 12/11/22 12/11/22 History hydrocodone 7.5 mg-acetaminophen 1 tab PO Q6H PRN pain 12/11/22 12/11/22 History 325 mg tablet losartan 100 mg tablet 100 mg PO DAILY 12/11/22 12/11/22 History metformin 1,000 mg tablet 1,000 mg PO BID 12/11/22 12/11/22 History Allergies Allergy/AdvReac Type Severity Reaction Status Date / Time lisinopril AdvReac Severe cough Verified 12/10/22 20:00 oxycodone AdvReac Severe Rage Verified 12/10/22 20:00 Review of Systems Constitutional Comments: w/o fever or chills Eyes Comments: w/o recent vision changes ENT Comments: recurrent Rt ear pain Cardiovascular Comments: w/o palpitations or chest pain Respiratory Comments: w/o shortness of breath Gastrointestinal Comments: w/o complaints Genitourinary Comments: w/o complaints Musculoskeletal Comments: chronic shoulder pain recent upper back / neck pain Neurologic Comments: slurred speech difficulty walking Exam Vital Signs (past 8 hours): - 12/10/22 21:19 12/10/22 21:20 12/10/22 21:20 Temperature Pulse Rate 98 H 99 H Respiratory Rate 17 Blood Pressure 126/85 Pulse Oximetry 91 93 Oxygen Flow Rate 12/10/22 21:30 12/10/22 22:00 12/10/22 22:30 Temperature Pulse Rate 101 H 95 H 97 H Respiratory Rate 12 9 L 13 Blood Pressure Pulse Oximetry 90 L 91 90 L Oxygen Flow Rate 12/10/22 23:00 12/10/22 23:30 12/11/22 00:00 Temperature Pulse Rate 95 H 94 H 96 H Respiratory Rate 14 18 13 Blood Pressure Pulse Oximetry 91 93 91 Oxygen Flow Rate 12/11/22 00:30 12/11/22 01:00 12/11/22 01:34 Temperature 97.2 F L Pulse Rate 97 H 104 H 94 H Respiratory Rate 13 13 20 Blood Pressure 141/89 H Pulse Oximetry 90 L 93 96 Oxygen Flow Rate 0 Oxygen Delivery Method Room Air Oxygen Flow Rate 0 Const Other: laying in bed in no distress HENMT Other: normocephalic w/o hearing loss Eyes Other: EOMI Resp Other: CTA Cardio Other: RRR w/o carotid bruits GI Other: not distended Skin Other: no rashes Neuro Other: Dysarthria Rt facial droop Gait ataxia Extrem Other: w/o swelling Psych Other: appropriate mood Objective Imaging CT scan - head: Radiologist's impression: w/o evidence of CVA Labs 12/10/22 20:24 12/10/22 20:24 Labs: Laboratory Results - last 24 hr 12/10/22 12/10/22 12/10/22 20:24 20:24 20:24 WBC 10.4 RBC 5.24 Hgb 15.2 Hct 44.6 MCV 85.1 MCH 29.0 MCHC 34.1 RDW 13.4 Plt Count 491 H Neut % (Auto) 63.7 Lymph % (Auto) 26.9 [place] % (Auto) 6.1 Eos % (Auto) 2.0 Baso % (Auto) 1.3 Neut # (Auto) 6600 Lymph # (Auto) 2800 [place] # (Auto) 600 Eos # (Auto) 200 Baso # (Auto) 100 PT 13.6 H INR 1.2 APTT 32 Sodium 132 L Potassium 4.1 Chloride 98 Carbon Dioxide 21 L BUN 14 Creatinine 0.80 Estimated GFR > 60 BUN/Creatinine Ratio 17.5 Glucose 230 H Calcium 9.4 Magnesium 1.7 Total Bilirubin 1.6 H AST 22 ALT 22 Alkaline Phosphatase 100 Total Creatine Kinase 67 Troponin I < 0.012 Total Protein 7.7 Albumin 4.5 Globulin 3.2 Albumin/Globulin Ratio 1.4 Ethyl Alcohol 12/10/22 20:24 WBC RBC Hgb Hct MCV MCH MCHC RDW Plt Count Neut % (Auto) Lymph % (Auto) [place] % (Auto) Eos % (Auto) Baso % (Auto) Neut # (Auto) Lymph # (Auto) [place] # (Auto) Eos # (Auto) Baso # (Auto) PT INR APTT Sodium Potassium Chloride Carbon Dioxide BUN Creatinine Estimated GFR BUN/Creatinine Ratio Glucose Calcium Magnesium Total Bilirubin AST ALT Alkaline Phosphatase Total Creatine Kinase Troponin I Total Protein Albumin Globulin Albumin/Globulin Ratio Ethyl Alcohol < 10 Assessment & Plan Assessment and plan (1) Suspected cerebrovascular accident (CVA): Status: Acute (2) Facial weakness: Status: Acute (3) Dysarthria: Status: Acute (4) Ataxia: Status: Acute (5) Type 2 diabetes mellitus without complication, without long-term current use of insulin: Status: Chronic (6) Hyperlipidemia: Qualifiers: Hyperlipidemia type: unspecified Qualified Code(s): E78.5 - Hyperlipidemia, unspecified Status: Chronic (7) Hypertension: Qualifiers: Hypertension type: unspecified Qualified Code(s): I10 - Essential (primary) hypertension Status: Chronic (8) Chronic right shoulder pain: Status: Chronic (9) Uncomplicated opioid dependence: Status: Chronic Plan Admitted with suspected stroke Assessment & Plan narrative: 1. Gait Ataxia, Dysarthria, occipital headache - suspected CVA - CT negative, MRI pending - statin, ASA - Echo with bubble study, telemetry - symptomatic since days ago, out of tPA and permissive HTN windows - DD peripheral palsy, complicated migraine - ST, PT, OT eval 2. PAD - evidence of b/l carotid and vertebral aa stenosis - on statin, started ASA 3. T2IDDM - A1C pending, last > 7, according to pt - followed by gastroenterology technician - continue metformin, long acting insulin and SS 4. HTN - Losartan 100 mg daily 5. HLD - statin 6. Chronic Pain - Rt shoulder, neck, thoracic nerve neuropathy - continues with home regimen of muscle relaxants, narcotic, tylenol and NSAID DVT prophylaxis - Lovenox
[2022-12-11] MEDS: GABAPENTIN 400 MG CAPSULE 1200 MG PO ×2 (05:20→09:37)
[2022-12-11 06:17] LABS: Appearance Urine UA CLEAR; Bilirubin Urine UA NEGATIVE (NEGATIVE); Color Urine UA YELLOW; Glucose Urine UA TRACE g/dL (Negative); Ketones Urine UA NEGATIVE (NEGATIVE); Leukocyte Esterase Urine UA NEGATIVE (NEGATIVE); Nitrite Urine UA NEGATIVE (Negative); Occult Blood Urine UA NEGATIVE (Negative); Protein Urine UA NEGATIVE (Negative); UR Morphine/Opiate cutoff 300 Positive (Negative); Ur Creatinine Normal (Normal); Ur Specific Gravity Normal (Normal); Urine Amphetamines Negative (Negative); Urine Barbiturates Negative (Negative); Urine Benzodiazepines Negative (Negative); Urine Cocaine Negative (Negative); Urine MDMA Negative (Negative); Urine Methadone Negative (Negative); Urine Methamphetamines Negative (Negative); Urine Oxycodone Negative (Negative); Urine Phencyclidine Negative (Negative); Urine Tetrahydrocannabinol Negative (Negative); Urine Tricyclic Antidepressant Positive (Negative); Urine pH Normal (Normal)
[2022-12-11 06:19] LABS: Bacteria Urine None Seen; RBC Urine None Seen (0-5/HPF); Squamous Epithelial Cell Urine None Seen (0-5/HPF); WBC Urine None Seen (0-5/HPF)
[2022-12-11 06:20] LABS: Mucus Urine 1+ (Negative)
[2022-12-11 06:22] LABS: Culture Indicated Urine Cult Not Indicated
--- NOTE | 2022-12-11 07:51 | DI.US.S_ITS ---
PROCEDURE: US PERIPH VENOUS LOW EXTREM BI INDICATIONS: EDEMA, CVA WITH + PFO ON ECHO TECHNIQUE: Real-time imaging, as well as color and pulse Doppler interrogation, were performed of the deep veins of both legs from the inguinal ligament to the popliteal fossa, with documentation of the visualized calf veins. COMPARISON: None. FINDINGS: Right: The common femoral, femoral, popliteal, and the visualized calf veins are normally compressible, and free of intraluminal thrombus. Color and pulse Doppler demonstrate normal phasic intravascular flow. There is normal augmentation response to distal compression maneuver. Left: The common femoral, femoral, popliteal, and the visualized calf veins are normally compressible, and free of intraluminal thrombus. Color and pulse Doppler demonstrate normal phasic intravascular flow. There is normal augmentation response to distal compression maneuver. IMPRESSION: No findings of deep venous thrombosis in either lower extremity. Dictated by: Pietro Alvarez M.D. on 12/11/2022 at 10:18 Approved by: Pietro Alvarez M.D. on 12/11/2022 at 10:18
--- NOTE | 2022-12-11 09:00 | PT.IIE ---
Current Diagnoses Type 2 diabetes mellitus without complications (12/11/22) Hyperlipidemia, unspecified (12/11/22) Opioid dependence, uncomplicated (12/11/22) Other chronic pain (12/11/22) Essential (primary) hypertension (12/11/22) Pain in right shoulder (12/11/22) Other specified symptoms and signs involving the circulatory and respiratory systems (12/11/22) Ataxia, unspecified (12/11/22) Facial weakness (12/11/22) Dysarthria and anarthria (12/11/22) Surgical History (Last Reviewed 12/11/22 @ 04:36 by Grant Cooley MD) History of hernia repair (06/07/17) Hx of hernia repair (2005) Medical History (Last Reviewed 12/11/22 @ 04:36 by Grant Cooley MD) Carpal tunnel syndrome (Unknown) Chronic pain syndrome (Unknown) Chronic right shoulder pain Hx of tendinitis (~2016) Neuropathic pain Primary insomnia (03/13/16) Shoulder pain (2010) Type 2 diabetes mellitus without complication, without long-term current use of insulin (12/15/15) Uncomplicated opioid dependence (03/06/17) Uncomplicated opioid dependence Physical Therapy Inpatient Evaluation/Re-Eval M1 PT/OT-IP Prior Functional Status Start: 12/11/22 08:02 Freq: NEEDED Status: Active Protocol: Document 12/11/22 09:00 AW (Rec: 12/11/22 09:44 AW [id number]) Medical Review Prior Functional Status Medical History Reviewed Yes Communication WNL. Pt is an effective verbal communicator. Mobility and Gait Independent but somewhat limited by chronic back pain Activities of Daily Living and IADL's Independent. Pt does typically drive but has been driving less the past few weeks. Social History Household Members family,friend(s) Living Arrangements House Number of Floors (Floors) Two Floors Number of Stairs To Enter/Railing? 6 ALEJANDRO with railing. One flight up to bedroom level has rails Home Environment High Toilet,Tub/Shower Home Equipment Straight Cane Employment Status Unemployed Additional Social History Comment Pt lives with his mother, brother, nephew, and a friend - all of whom can assist him to some extent. M2 PT-IP Current Condition Start: 12/11/22 08:02 Freq: NEEDED Status: Active Protocol: Document 12/11/22 09:00 AW (Rec: 12/11/22 09:44 AW [id number]) Physical Therapy Current Condition Current Condition Evaluation Date 12/11/22 Treatment Diagnosis CVA rule out Onset Date late November M3 PT-IP Subjective Start: 12/11/22 08:02 Freq: NEEDED Status: Active Protocol: Document 12/11/22 09:00 AW (Rec: 12/11/22 09:44 AW [id number]) Subjective Physical Therapy Visit Type Type Initial Evaluation Visit Start Time 08:37 Visit Stop Time 08:57 Total Visit Minutes 18 Physical Therapy Visit Comments Patient Comments Pt presents with somewhat flat affect but very willing to work with PT. Therapy Pain Assessment Pain When Pain Assessed At Rest Pain Present Pain Present Pain Reported Location Right Ear Scale Used not quantified M4 PT-IP Mobility and Gait Start: 12/11/22 08:02 Freq: NEEDED Status: Active Protocol: Document 12/11/22 09:00 AW (Rec: 12/11/22 09:44 AW [id number]) PT-Bed Mobility Assessment Supine to Sit Supine to Sit Independent Sit to Supine Sit to Supine Independent Scooting Scooting to Edge of Bed Independent PT-Transfer Assessment Sit to and From Stand Sit to and from Stand Independent Equipment Transfer Assistive Device None Transfers Transfer Destination Bed,Chair Transfer Technique Stand Step Pivot Transfer Ability Level of Assist Independent Comments Mobility Comments Pt was found resting in bed. He sat up easily and transferred to the chair. Neuro screen unremarkable except possible left hand chemical engineering technologist weaker than right. Pt has chronic bilateral shoulder pain. Pt stood and walked in the halls, completing Dynamic Gait Index with score of 24/24 , no sign of balance impairment. On return to the room, care transitioned to ECHO as pt returned to bed. Gait Assessment Gait Gait Assistance Required: Independent Distance (Feet) 200 Assistive Devices Assistive Device None Orthotic/Prosthetic Devices or Brace: No Gait Deviations General Gait Pattern Within Normal Limits Stair Climbing Assessment Evaluation Level of Assist On Stairs Independent Devices Stair Climbing Assistive Devices None Technique/Endurance Stair Climbing Direction Ascend and Descend Stair Climbing Technique Step Over Step Number of Steps Climbed 3 Query Text: Stair Climbing Set # Repetitions (reps) 1 PT-Balance Assessment Sitting Balance and Reactions Static Sitting Balance Ability Normal Dynamic Sitting Balance Ability Normal Standing Balance and Reactions Static Standing Balance Ability Normal Dynamic Standing Balance Ability Normal Functional Assessments Functional Tests Dynamic Gait Index 24/24 M5 PT-IP Objective Assessments Start: 12/11/22 08:02 Freq: NEEDED Status: Active Protocol: Document 12/11/22 09:00 AW (Rec: 12/11/22 09:44 AW [id number]) Orientation Orientation/Cognition Level of Alertness Alert Orientation Name,Date,Day of Week,Place, Situation Safety Awareness Understands Safety Issues Memory Description No Deficits Noted Comments Speech is vaguely slurred but not garbled, is largely intelligible. No word finding difficulty. Gross Range of Motion Upper Extremity ROM Assessment Within Functional Limits Impairments Shoulders functional but limited to ~110-120 degrees elevation due to chronic pain. Lower Extremity ROM Assessment Within Functional Limits Strength Upper Extremity Strength Assessment Within Functional Limits Lower Extremity Strength Assessment Within Functional Limits Comments Strength Comments No unilateral deficit except for left hand. Coordination Assessment Gross Coordination Gross Coordination WNL Assessment Finger to Nose Test Normal Performance Pronation/Supination Test Normal Performance Foot Tapping Test Normal Performance Sensation Assessment Sensation Gross Sensation WNL Muscle Tone Muscle Tone WNL Yes Other Assessments Other Other Assessments Ocular motor and vestibular screens WNL. Pt denies dizziness, vision changes. No visual loss. Pt does have positive right facial droop and reports right head/ear pain. Tongue thrust is normal, no deviation. M7 PT-IP Assessment and Plan Start: 12/11/22 08:02 Freq: NEEDED Status: Active Protocol: Document 12/11/22 09:00 AW (Rec: 12/11/22 09:44 AW [id number]) PT Summary Assessment and Plan Potential Status of Condition at Evaluation Stable Summary Assessment Summary José is a 52 yo man seen for PT evaluation per stroke protocol. Presenting symptoms were slurred speech, ataxia, right facial droop. CT and CTA were WNL. MRI is pending. PLOF: Pt is independent in all regards. He lives with family in a 2-level home. He denies falls except one fall on stairs but he can not remember how long ago. CLOF: Pt is mobilizing independently. Neuro screen remarkable for right facial droop and left chemical engineering technologist weakness but no other focal deficits. Dynamic Gait Index scored 24/24 as expected given pt's age and general activity level. PT recommends discharge home. No further acute PT needs are anticipated . Frequency of Treatment Frequency Of Treatment Discharge Recommendations To Nursing Amount of Assist Needed Independent Discharge Recommendations PT Discharge Recommendations Home Transportation Needs at Discharge Private Vehicle
[2022-12-11 09:09] LABS: Hematocrit 43.7 % (41-53); Hemoglobin 14.8 g/dL (13.5-17.5); Mean Corpuscular HGB Conc 33.9 % (30-36); Mean Corpuscular Hemoglobin 29.1 PG (26-34); Platelet Count 473 X10^3/uL (150-400); Red Blood Cell Count 5.08 X10^6/uL (4.5-5.9); Red Cell Distribution Width 13.5 % (11.6-14.8); White Blood Cell Count 12.2 X10^3/uL (4.5-11.0)
[2022-12-11] MEDS: ASPIRIN EC 81 MG TABLET PO (09:36)
[2022-12-11] MEDS: METFORMIN HCL 500 MG TABLET 1000 MG PO (09:37)
[2022-12-11] MEDS: DULOXETINE 30 MG CAPSULE PO (09:37)
[2022-12-11] MEDS: ATORVASTATIN 20 MG TABLET 40 MG PO (09:37)
[2022-12-11] MEDS: LOSARTAN 50 MG TABLET 100 MG PO (09:37)
[2022-12-11] MEDS: INSULIN GLARGINE 100 UNIT/ML 3ML PEN 20 UNIT SUBCUT (09:38)
[2022-12-11] MEDS: INSULIN LISPRO 100 UNIT/ML 3ML VIAL SUBCUT (09:38)
[2022-12-11 09:40] VITALS: BP 143/90; PULSE 98; RESP 16; TEMP 36.7; O2SAT 94
--- NOTE | 2022-12-11 09:40 | OT.IP.EVAL ---
Current Diagnoses Type 2 diabetes mellitus without complications (12/11/22) Hyperlipidemia, unspecified (12/11/22) Opioid dependence, uncomplicated (12/11/22) Other chronic pain (12/11/22) Essential (primary) hypertension (12/11/22) Pain in right shoulder (12/11/22) Other specified symptoms and signs involving the circulatory and respiratory systems (12/11/22) Ataxia, unspecified (12/11/22) Facial weakness (12/11/22) Dysarthria and anarthria (12/11/22) Past Medical History (Last Reviewed 12/11/22 @ 04:36 by Grant Cooley MD) Carpal tunnel syndrome (Unknown) Chronic pain syndrome (Unknown) Chronic right shoulder pain Hx of tendinitis (~2016) Neuropathic pain Primary insomnia (03/13/16) Shoulder pain (2010) Type 2 diabetes mellitus without complication, without long-term current use of insulin (12/15/15) Uncomplicated opioid dependence (03/06/17) Uncomplicated opioid dependence Surgical History (Last Reviewed 12/11/22 @ 04:36 by Grant Cooley MD) History of hernia repair (06/07/17) Hx of hernia repair (2005) Occupational Therapy Inpatient Evaluation/Re-Eval M1 PT/OT-IP Prior Functional Status Start: 12/11/22 08:02 Freq: NEEDED Status: Active Protocol: Document 12/11/22 12:19 CGR (Rec: 12/11/22 12:44 CGR [id number]) Medical Review Prior Functional Status Medical History Reviewed Yes Communication WNL. Pt is an effective verbal communicator. Mobility and Gait Independent but somewhat limited by chronic back pain Activities of Daily Living and IADL's Independent. Pt does typically drive but has been driving less the past few weeks. Social History Household Members family,friend(s) Living Arrangements House Number of Floors (Floors) Two Floors Number of Stairs To Enter/Railing? 6 ALEJANDRO with railing. One flight up to bedroom level has rails Home Environment High Toilet,Tub/Shower Home Equipment Straight Cane Employment Status Unemployed Additional Social History Comment Pt lives with his mother, brother, nephew, and a friend - all of whom can assist him to some extent. M2 OT-IP Current Condition Start: 12/11/22 12:19 Freq: Status: Active Protocol: Document 12/11/22 12:19 CGR (Rec: 12/11/22 12:44 CGR [id number]) Occupational Therapy Current Condition Current Condition Evaluation Date 12/11/22 Treatment Diagnosis CVA vs complex migraine Diagnosis Onset Date 12/11/22 M3 OT- IP Subjective and Pain Start: 12/11/22 12:19 Freq: Status: Active Protocol: Document 12/11/22 12:19 CGR (Rec: 12/11/22 12:44 CGR [id number]) OT- Subjective Occupational Therapy Visit Type Type Initial Evaluation Visit Start Time 09:31 Visit Stop Time 09:40 Total Visit Minutes 9 OT Pain Assessment Pain When Pain Assessed At Rest Pain Present Pain Present Pain Reported Location Right Ear Intensity 4 Scale Used Numeric (0 - 10) Management Techniques Distraction,Modification of Treatment,Re-positioning M4 OT- IP ADL's Start: 12/11/22 12:19 Freq: Status: Active Protocol: Document 12/11/22 12:19 CGR (Rec: 12/11/22 12:44 CGR [id number]) OT [id number] General Evaluation Self-Feeding Ability Independent Comments OT Self-Feeding Comments breakfast OT ADL-Grooming General Evaluation Grooming Ability Standby Assistance Areas Needing Assistance Face Washing Comments OT Grooming Comments standing at sink OT ADL-Oral Care General Eval Oral Care Ability Standby Assistance Areas of Assistance Brushing Teeth,Retrieving/Set- Up of Items Comments Oral Care Comments standing at sink OT ADL-Dressing General Eval Lower Body Dressing Ability Independent Areas Needing Assistance Socks Comments OT Dressing Comments socks seated EOB OT ADL-Toileting General Evaluation Toileting Ability Independent OT ADL-Bathing Comments OT Bathing Comments not performed M5 OT- IP IADL's Start: 12/11/22 12:19 Freq: Status: Active Protocol: Document 12/11/22 12:19 CGR (Rec: 12/11/22 12:44 CGR [id number]) OT-Instrumental Activities of Daily Living Deficits IADL Deficits Identified No Deficits Home Safety Awareness Awareness of Need for Assistance at Home Good Awareness Ability to Problem Solve Emergency Able to Problem Solve Situations Medication Management Medication Management No Deficits Identified Money Management Money Management No Deficits Identified Meal Preparation Meal Preparation No Deficits Identified Manager Economic Manager Economic No Deficits Identified Driving Driving Comments 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 OT- IP Functional Cognition Start: 12/11/22 12:19 Freq: Status: Active Protocol: Document 12/11/22 12:19 CGR (Rec: 12/11/22 12:44 CGR [id number]) Cognitive Factors Limiting Selfcare Function Cognitive Ability Level of Alertness Alert Patient Orientation Name,Age,Birthday,Month,Date, Year,Day of Week,Place, Situation Attention Span Ability Capable of Focused Attention, Capable of Sustained Attention Ability to Follow Commands Able to Follow One Step Commands with Increased Time, Able to Follow One Step Commands with Repetition OT- Vision and Hearing OT- Hearing Assessment OT- Hearing Assessment WFL OT- Vision Assessment Visual Acuity Glasses All The Time Visual Attentiveness WFL Occular Pursuits WFL Visual Convergence WFL M7 OT- IP Mobility and Balance Start: 12/11/22 12:19 Freq: Status: Active Protocol: Document 12/11/22 12:19 CGR (Rec: 12/11/22 12:44 CGR [id number]) OT- Bed Mobility Assessment Supine to Sit Supine to Sit Assist Independent Sit to Supine Sit to Supine Assist Independent Scooting Scooting to Edge of Bed Independent OT-Transfer Assessment Sit to and From Stand Sit to and from Stand Independent Transfers Transfer Ability Independent Technique Transfer Destination Bed,Toilet Transfer Technique Stand Step Pivot Devices Transfer Assistive Devices None OT- Balance Assessment Sitting Balance and Reactions Static Sitting Balance Ability Normal Dynamic Sitting Balance Ability Normal Standing Balance and Reactions Static Standing Balance Ability Normal Dynamic Standing Balance Ability Normal M8 OT- IP Objective Assessments Start: 12/11/22 12:19 Freq: Status: Active Protocol: Document 12/11/22 12:19 CGR (Rec: 12/11/22 12:44 CGR [id number]) OT Gross Range of Motion Upper Extremity Range of Motion Assessment Within Functional Limits OT Strength Upper Extremity Strength Assessment Within Functional Limits Comments Strength Comments B shlds 4-/5, 4/5 to arms and hands OT- Coordination Assessment Upper Extremity Finger to Nose Test Within Functional Limits Finger Tapping Test Within Functional Limits OT-Muscle Tone Assessment Muscle Tone WNL Yes OT Sensation Assessment Edema Edema Absent M9 OT- IP Assessment and Plan Start: 12/11/22 12:19 Freq: Status: Active Protocol: Document 12/11/22 12:19 CGR (Rec: 12/11/22 12:44 CGR [id number]) OT Summary Assessment and Plan Potential Rehabilitation Potential Excellent Analytic Complexity at Evaluation Low Summary Progress Towards Goals Goals Met Assessment Summary Pt presents as a low complexity evaluation s/p admit for possible CVA vs complex migraine. Pt presents functionally at his baseline. No OT needs. Frequency of Treatment Frequency Of Treatment Discharge Discharge Recommendations OT Discharge Recommendations Home Transportation Needs at Discharge Private Vehicle
[2022-12-11] MEDS: BACLOFEN 10 MG TABLET PO (09:42)
[2022-12-11] MEDS: ENOXAPARIN 40 MG/0.4 ML SYRINGE SUBCUT (09:42)
[2022-12-11 10:00] LABS: TSH w/ Reflex to FT4 1.86 uIU/mL (0.47-4.68)
--- NOTE | 2022-12-11 11:26 | PM.HP.1 ---
History of Present Illness History of Present Illness Date Patient Seen: 12/11/22 Time Patient Seen: 10:45 Chief complaint: R sided face droop Narrative: 52 y/o with PMH of T2IDDM, HTN and HLD who presented to the emergency room with slurred speech with R facial droop, possible R hand weakness, difficulty walking and headache. He was admitted overnight by the telehospitalist service and his symptoms had improved the following morning more quickly than expected. COUNTS INCLUDE 234 BEDS AT THE [facility] Medical History Carpal tunnel syndrome (Unknown) Chronic pain syndrome (Unknown) Chronic right shoulder pain Hx of tendinitis (~2016) Neuropathic pain Primary insomnia (03/13/16) Shoulder pain (2010) Type 2 diabetes mellitus without complication, without long-term current use of insulin (12/15/15) Uncomplicated opioid dependence (03/06/17) Uncomplicated opioid dependence Surgical History History of hernia repair (06/07/17) Hx of hernia repair (2005) Family History Brother Age: 55 Diabetes mellitus Father Essential hypertension Leukemia Mother Alive and well Other Primary insomnia Social History household members: family and friend(s) Smoking Status: Never smoker alcohol intake: current substance use type: does not use Meds Home Medications and Allergies Home Medications Medication Instructions Recorded Confirmed Type flash glucose sensor (FreeStyle #1 ea 11/29/20 11/13/22 History Amie 2 Sensor kit) insulin aspart U-100 100 unit/mL See Rx Instructions .Route .COMPLEX 03/03/21 12/11/22 History (3 mL) subcutaneous pen (Novolog FlexPen U-100 Insulin aspart) insulin detemir U-100 100 unit/mL See Rx Instructions .Route .COMPLEX 03/03/21 11/13/22 History (3 mL) subcutaneous pen dulaglutide 0.75 mg/0.5 mL 0.75 mg SUBCUT QWEEK 02/08/22 11/13/22 History subcutaneous pen injector diclofenac sodium 3 % topical gel 1 applic topical BID 10 days #100 12/04/22 12/11/22 Rx grams aspirin 81 mg tablet,delayed 81 mg PO DAILY 90 days #90 tabs 12/11/22 Rx release (Adult Aspirin Regimen) atorvastatin 40 mg tablet 40 mg PO DAILY 12/11/22 12/11/22 History baclofen 10 mg tablet 10 mg PO BID muscle spasm 12/11/22 12/11/22 History clopidogrel 75 mg tablet 75 mg PO DAILY 21 days #21 tabs 12/11/22 Rx cyclobenzaprine 10 mg tablet 10 mg PO BID PRN muscle spasm 12/11/22 12/11/22 History dulaglutide 3 mg/0.5 mL 3 mg SUBCUT 12/11/22 History subcutaneous pen injector (Trulicity) duloxetine 30 mg capsule,delayed 30 mg PO DAILY 12/11/22 12/11/22 History release gabapentin 800 mg tablet 1,200 mg PO 3XD 12/11/22 12/11/22 History hydrocodone 7.5 mg-acetaminophen 1 tab PO Q6H PRN pain 12/11/22 12/11/22 History 325 mg tablet losartan 100 mg tablet 100 mg PO DAILY 12/11/22 12/11/22 History metformin 1,000 mg tablet 1,000 mg PO BID 12/11/22 12/11/22 History Allergies Allergy/AdvReac Type Severity Reaction Status Date / Time lisinopril AdvReac Severe cough Verified 12/10/22 20:00 oxycodone AdvReac Severe Rage Verified 12/10/22 20:00 Review of Systems Review of Systems Narrative: All other systems reviewed with the patient and are negative unless otherwise stated. Exam Vital Signs (past 8 hours): - 12/11/22 04:00 12/11/22 09:40 Temperature 97.7 F 98.0 F Pulse Rate 96 H 98 H Respiratory Rate 17 16 Blood Pressure 138/89 143/90 H Pulse Oximetry 98 94 Oxygen Flow Rate 0 Oxygen Delivery Method Room Air Oxygen Flow Rate 0 Narrative Exam Narrative: General:? Patient is well developed and well nourished, in no distress at this time. HEENT:? Normocephalic, atraumatic, extraocular muscles intact, oral pharynx is clear and mucous membranes are moist. Neck: supple and symmetric, trachea is midline, no cervical adenopathy. Negative for JVD Chest:? Normal AP diameter and contour without kyphoscoliosis, no tachypnea, equal chest rise bilaterally. Lungs:? CTA b/l no wheezing rhonchi or rales. Cardio:?RRR no m/r/g. Abdomen: S NT ND. No CVA tenderness. Musculoskeletal:? Muscle strength and tone are equal within normal limits, no deformity. Extremities: No edema or joint effusions. No cyanosis or clubbing. Skin:? Pale,? Warm to touch,dry and intact without rashes, ulcerations or petechiae.? Neuro:? Alert and orientated x3,? sensation to touch intact in all extremities. Mild R facial droop. Possible R hand weakness compared to L. Psych:? Patient has a well-kept appearance, appropriate affect, mental status attitude thought context and judgment are appropriate for age. Objective Labs 12/11/22 09:00 12/10/22 20:24 Labs: Laboratory Results - last 24 hr 12/10/22 12/10/22 12/10/22 20:24 20:24 20:24 WBC 10.4 RBC 5.24 Hgb 15.2 Hct 44.6 MCV 85.1 MCH 29.0 MCHC 34.1 RDW 13.4 Plt Count 491 H Neut % (Auto) 63.7 Lymph % (Auto) 26.9 [place] % (Auto) 6.1 Eos % (Auto) 2.0 Baso % (Auto) 1.3 Neut # (Auto) 6600 Lymph # (Auto) 2800 [place] # (Auto) 600 Eos # (Auto) 200 Baso # (Auto) 100 PT 13.6 H INR 1.2 APTT 32 Sodium 132 L Potassium 4.1 Chloride 98 Carbon Dioxide 21 L BUN 14 Creatinine 0.80 Estimated GFR > 60 BUN/Creatinine Ratio 17.5 Glucose 230 H Calcium 9.4 Magnesium 1.7 Total Bilirubin 1.6 H AST 22 ALT 22 Alkaline Phosphatase 100 Total Creatine Kinase 67 Troponin I < 0.012 Total Protein 7.7 Albumin 4.5 Globulin 3.2 Albumin/Globulin Ratio 1.4 TSH Urine Color Urine Appearance Urine pH Ur Specific [place] Urine Protein Urine Glucose (UA) Urine Ketones Urine Occult Blood Urine Nitrate Urine Bilirubin Urine Urobilinogen Ur Leukocyte Esterase Urine RBC Urine WBC Ur Squamous Epith Cells Urine Bacteria Urine Mucus Ur Culture Indicated? U Opiates 300ng/mL cut Ur Oxycodone Screen Urine Methadone Screen Ur Barbiturates Screen U Tricyclic Antidepress Ur Phencyclidine Scrn Ur Amphetamines Screen U Methamphetamines Scrn Ur MDMA Scrn (Ecstasy) U Benzodiazepines Scrn Urine Cocaine Screen U Marijuana (THC) Screen Ethyl Alcohol 12/10/22 12/11/22 12/11/22 20:24 06:00 06:00 WBC RBC Hgb Hct MCV MCH MCHC RDW Plt Count Neut % (Auto) Lymph % (Auto) [place] % (Auto) Eos % (Auto) Baso % (Auto) Neut # (Auto) Lymph # (Auto) [place] # (Auto) Eos # (Auto) Baso # (Auto) PT INR APTT Sodium Potassium Chloride Carbon Dioxide BUN Creatinine Estimated GFR BUN/Creatinine Ratio Glucose Calcium Magnesium Total Bilirubin AST ALT Alkaline Phosphatase Total Creatine Kinase Troponin I Total Protein Albumin Globulin Albumin/Globulin Ratio TSH Urine Color Yellow Urine Appearance Clear Urine pH 5.0 Ur Specific [place] 1.020 Urine Protein Negative Urine Glucose (UA) Trace H Urine Ketones Negative Urine Occult Blood Negative Urine Nitrate Negative Urine Bilirubin Negative Urine Urobilinogen 1.0 Ur Leukocyte Esterase Negative Urine RBC None seen Urine WBC None seen Ur Squamous Epith Cells None seen Urine Bacteria None seen Urine Mucus 1+ H Ur Culture Indicated? Cult not indicated U Opiates 300ng/mL cut Positive H Ur Oxycodone Screen Negative Urine Methadone Screen Negative Ur Barbiturates Screen Negative U Tricyclic Antidepress Positive H Ur Phencyclidine Scrn Negative Ur Amphetamines Screen Negative U Methamphetamines Scrn Negative Ur MDMA Scrn (Ecstasy) Negative U Benzodiazepines Scrn Negative Urine Cocaine Screen Negative U Marijuana (THC) Screen Negative Ethyl Alcohol < 10 12/11/22 12/11/22 09:00 09:00 WBC 12.2 H RBC 5.08 Hgb 14.8 Hct 43.7 MCV 86.0 MCH 29.1 MCHC 33.9 RDW 13.5 Plt Count 473 H Neut % (Auto) Lymph % (Auto) [place] % (Auto) Eos % (Auto) Baso % (Auto) Neut # (Auto) Lymph # (Auto) [place] # (Auto) Eos # (Auto) Baso # (Auto) PT INR APTT Sodium Potassium Chloride Carbon Dioxide BUN Creatinine Estimated GFR BUN/Creatinine Ratio Glucose Calcium Magnesium Total Bilirubin AST ALT Alkaline Phosphatase Total Creatine Kinase Troponin I Total Protein Albumin Globulin Albumin/Globulin Ratio TSH 1.86 Urine Color Urine Appearance Urine pH Ur Specific [place] Urine Protein Urine Glucose (UA) Urine Ketones Urine Occult Blood Urine Nitrate Urine Bilirubin Urine Urobilinogen Ur Leukocyte Esterase Urine RBC Urine WBC Ur Squamous Epith Cells Urine Bacteria Urine Mucus Ur Culture Indicated? U Opiates 300ng/mL cut Ur Oxycodone Screen Urine Methadone Screen Ur Barbiturates Screen U Tricyclic Antidepress Ur Phencyclidine Scrn Ur Amphetamines Screen U Methamphetamines Scrn Ur MDMA Scrn (Ecstasy) U Benzodiazepines Scrn Urine Cocaine Screen U Marijuana (THC) Screen Ethyl Alcohol Assessment & Plan Assessment & Plan narrative: 1. Possible stroke - patient with R facial droop and weakness on presentation, did improve slightly over the course of his stay. - MRI negative for acute infarcts, may be falsely negative given presentation. May represent complex migraine or less likely seizure. - does have encephalomalacia on the R on MRI, probable old prior infarct but does not correlate with current symptoms. - Patient ambulated well with therapies, deemed to be at baseline and cleared for discharge home. - He was given asa 81 mg daily, continued on home statin therapy, and prescribed 21 days of plavix for presumed stroke with NIH <5. - can be discharged home - TTE with PFO, recommend outpatient evaluation. DVT study negative for DVT. Otherwise echo was not revealing for etiology of stroke - Recommend PCP follow up, consider holter monitor and cardiology referral for PFO given stroke. 2. PAD - evidence of b/l carotid and vertebral aa stenosis - on statin, started ASA as noted above 3. T2IDDM - A1C pending at time of discharge. - followed by mine safety director - continue metformin, long acting insulin and SS 4. HTN - Losartan 100 mg daily 5. HLD - statin to continue as noted above 6. Chronic Pain -continue home medications without change. Code: full, surrogate he states is his mother. Dispo: Patient discharged home after evaluation for stroke as noted above and clearance by therapies. I have utilized all available immediate resources to obtain, update, or review the patient's current medications. additional history obtained via discussion with overnight provider, I have reviewed patient's imaging, labs, and documentation personally.
--- NOTE | 2022-12-11 11:45 | CM.DANOTE ---
DCP Assessment Note: Patient is a 52yo male here under inpatient status following right side facial droop PCP Yunior Dominguez [facility] [employer] and Medicaid PRODUCT MANUFACTURING PROFESSIONAL reviewed EMR. Per Pt/Ot in rounds, cleared for home with family. PRODUCT MANUFACTURING PROFESSIONAL entered room and introduced self and role. Patient was sitting up in bed and appeared A/Ox4. Patient reports he lives at home with mom/emergency contact, Sumaya ([phone]), brother, and nephew. Patient is independent and ambulatory at baseline. Patient drives. Patient reports he will follow up with OP care. Mom coming to transport him home. Plan: patient will d/c home today with family. No needs identified at this time. CM team will follow as needed. LUCY Sofia Discharge Planning/Care Management CM Discharge Assessment Start: 12/11/22 11:44 Freq: Status: Active Protocol: Document 12/11/22 11:44 SL (Rec: 12/11/22 11:45 [id number]) Discharge Planning Assessment Assigned Boiler Reliner LUCY Archer DPOA/Assigned Designee Name Sumaya Starr (mom) Contact Information [phone] Advance Directives? No Advance Directives on File No History Provided By Patient,Medical Record Prior Living Arrangements House Household Members family,friend(s) Type of transporation used prior to Drives own vehicle admit Independent with ADL's Yes Is patient alert and oriented? Yes Discharge Plan Home Transportation Arrangement mother to provide transport at d/c Referrals Initiated None needed Whiteboard Updated in Patient Room with Yes name and ext. # of Boiler Reliner Review Status In Process Next Review Type Continued Stay Review
--- NOTE | 2022-12-11 12:26 | PC.NURSE ---
Patient is going to discharge home.
--- NOTE | 2022-12-12 17:11 | P.DS_ITS ---
History of Present Illness History of Present Illness Date Patient Seen: 12/11/22 Time Patient Seen: 11:00 Chief complaint: R sided face droop Narrative: 52 y/o with PMH of T2IDDM, HTN and HLD who presented to the emergency room with slurred speech with R facial droop, possible R hand weakness, difficulty walking and headache. He was admitted overnight by the telehospitalist service and his symptoms had improved the following morning more quickly than expected. Discharge Providers Provider Date of admission: 12/11/22 00:26 Discharge Date: 12/11/22 Primary care physician: Oswaldo Pickering MD Consults: 12/11/22 01:07 Consult to Speech Therapy Evaluate & Treat Comment: dysarthria, facial droop, ataxia, suspected stroke Physician Instructions: Evaluate and treat 12/11/22 01:08 Consult to Physical Therapy Evaluate & Treat Comment: dysarthria, facial droop, ataxia, suspected stroke Physician Instructions: Evaluate and Treat 12/11/22 01:09 Consult to Occupational Therapy Evaluate & Treat Comment: dysarthria, facial droop, ataxia, suspected stroke Physician Instructions: Evaluate and treat Discharge provider: Charanjit Chiu DO Summary Hospital Course Hospital Course: 1. Possible stroke ?- patient with R facial droop and weakness on presentation, did improve slightly over the course of his stay. ?- MRI negative for acute infarcts, may be falsely negative given presentation. May represent complex migraine or less likely seizure. ?- does have encephalomalacia on the R on MRI, probable old prior infarct but does not correlate with current symptoms. ?- Patient ambulated well with therapies, deemed to be at baseline and cleared for discharge home. ?- He was given asa 81 mg daily, continued on home statin therapy, and prescribed 21 days of plavix for presumed stroke with NIH <5. ? ?- TTE with PFO, recommend outpatient evaluation. DVT study negative for DVT. Otherwise echo was not revealing for etiology of stroke ?- Recommend PCP follow up, consider holter monitor and cardiology referral for PFO given stroke. 2. PAD - evidence of b/l carotid and vertebral aa stenosis - on statin, started ASA as noted above 3. T2IDDM - A1C pending at time of discharge. - followed by pot pusher - continue metformin, long acting insulin and SS 4. HTN - Losartan 100 mg daily 5. HLD - statin to continue as noted above 6. Chronic Pain -continue home medications without change. Time Spent with Patient Time spent: Less than 30 minutes Exam Vital Signs (past 8 hours): Oxygen Delivery Method Room Air Oxygen Flow Rate 0 Narrative Exam Narrative: General:? Patient is well developed and well nourished, in no distress at this time. HEENT:? Normocephalic, atraumatic, extraocular muscles intact, oral pharynx is clear and mucous membranes are moist. Neck: supple and symmetric, trachea is midline, no cervical adenopathy. Negative for JVD Chest:? Normal AP diameter and contour without kyphoscoliosis, no tachypnea, equal chest rise bilaterally. Lungs:? CTA b/l no wheezing rhonchi or rales. Cardio:?RRR no m/r/g. Abdomen: S NT ND. No CVA tenderness. Musculoskeletal:? Muscle strength and tone are equal within normal limits, no deformity. Extremities: No edema or joint effusions. No cyanosis or clubbing. Skin:? Pale,? Warm to touch,dry and intact without rashes, ulcerations or petechiae.? Neuro:? Alert and orientated x3,? sensation to touch intact in all extremities. Mild R facial droop. Possible R hand weakness compared to L. Psych:? Patient has a well-kept appearance, appropriate affect, mental status attitude thought context and judgment are appropriate for age. Objective Labs 12/11/22 09:00 12/10/22 20:24 Labs: Laboratory Results - last 24 hr 12/11/22 09:00 Hgb A1c (Ref Lab) 8.0 H [facility] Medical History Carpal tunnel syndrome (Unknown) Chronic pain syndrome (Unknown) Chronic right shoulder pain Hx of tendinitis (~2016) Neuropathic pain Primary insomnia (03/13/16) Shoulder pain (2010) Type 2 diabetes mellitus without complication, without long-term current use of insulin (12/15/15) Uncomplicated opioid dependence (03/06/17) Uncomplicated opioid dependence Surgical History History of hernia repair (06/07/17) Hx of hernia repair (2005) Family History Brother Age: 55 Diabetes mellitus Father Essential hypertension Leukemia Mother Alive and well Other Primary insomnia Social History household members: family and friend(s) Smoking Status: Never smoker alcohol intake: current substance use type: does not use Discharge Plan Discharge Plan Patient Disposition: Home Provider Discharge Comment: You were admitted to the hospital with possible stroke. MRI was negative, but suspect that this was falsely negative for an acute stroke but did show you likely had an older stroke in the past. You did well with therapies and are safe to discharge home. Recommend PCP follow up ideally this week to review hospitalization and possibly order a holter monitor (HR monitor) to evaluate for possible afib. Treatment of stroke is focused on therapy, and prevention with medications which include aspirin 81 mg daily for life, plavix for 21 days, and atorvastatin 40-80 mg for life. Discharge orders & Medications Prescriptions: New aspirin [Adult Aspirin Regimen] 81 mg tablet,delayed release (DR/EC) 81 mg PO DAILY 90 Days Qty: 90 0RF clopidogrel 75 mg tablet 75 mg PO DAILY 21 Days Qty: 21 0RF Continued dulaglutide 0.75 mg/0.5 mL pen injector 0.75 mg SUBCUT QWEEK (DME) FreeStyle Amie 2 Sensor Kit See Rx Instructions .ROUTE .MEDSUPPLY Qty: 1 Rx Instructions: As directed insulin detemir U-100 100 unit/mL (3 mL) insulin pen See Rx Instructions .ROUTE .COMPLEX Patient Comments: Sliding scale given by provider; pt unable to recall sliding scale info Rx Instructions: SUBCUT at bedtime based on sliding scale insulin aspart U-100 [Novolog FlexPen U-100 Insulin] 100 unit/mL (3 mL) insulin pen See Rx Instructions .ROUTE .COMPLEX Rx Instructions: sliding scale 25-35 units before each meal diclofenac sodium 3 % gel 1 applic topical BID 10 Days Qty: 100 0RF cyclobenzaprine 10 mg tablet 10 mg PO BID PRN (Reason: muscle spasm) atorvastatin 40 mg tablet 40 mg PO DAILY gabapentin 800 mg tablet 1,200 mg PO 3XD baclofen 10 mg tablet 10 mg PO BID hydrocodone-acetaminophen 7.5-325 mg tablet 1 tab PO Q6H PRN (Reason: pain) metformin 1,000 mg tablet 1,000 mg PO BID losartan 100 mg tablet 100 mg PO DAILY duloxetine 30 mg capsule,delayed release(DR/EC) 30 mg PO DAILY Trulicity 3 mg/0.5 mL pen injector 3 mg SUBCUT Follow up/Referrals: Oswaldo Pickering MD [Primary Care Provider] - 3-5 Days Diet/Activity/Treatments Diet: Diet as Tolerated and Regular Activity: As tolerated, no restrictions Visit Report/Discharge Packet Instructions: Atorvastatin, Clopidogrel Stand Alone Forms: Patient Portal/API, Stroke Signs & Symptoms Discharge Data Primary Care Provider: Oswaldo Pickering Discharges patient from system. Discharge Date/Time: 12/11/22 13:00
== END 2022-12-11 13:00 | disposition home or self-care (01) | DRG 45 ==
LOC: ED 23:55 → AC 12-11 07:43
PROVIDERS: Admitting Provider Internal Medicine; Emergency Provider Emergency Medicine; Family Provider Student in an Organized Health Care Education/Training Program; PCP Student in an Organized Health Care Education/Training Program; Visit Provider Internal Medicine
DX: I63.9 Cerebral infarction, unspecified (principal); R47.81 Slurred speech; R26.0 Ataxic gait; R47.1 Dysarthria and anarthria; I73.9 Peripheral vascular disease, unspecified; E11.40 Type 2 diabetes mellitus with diabetic neuropathy, unspecified; I10 Essential (primary) hypertension; R29.704 NIHSS score 4; E78.5 Hyperlipidemia, unspecified; R29.703 NIHSS score 3; G62.9 Polyneuropathy, unspecified; R29.810 Facial weakness; Z79.85 Long-term (current) use of injectable non-insulin antidiabetic drugs; Z79.4 Long term (current) use of insulin; Z79.84 Long term (current) use of oral hypoglycemic drugs
CPT/HCPCS: 36415; 70450; 70496; 70498; 70551; 71045; 80053; 80305; 80320; 81001; 82550; 82962; 83036; 83735; 84443; 84484; 85025; 85027; 85610; 85730; 93306; 93970; 97161; 97165; 99285; G0378; J1650; J1815; Q9967

== ENCOUNTER 2022-12-14 11:41 | Emergency (ER) | payer OTHER, MEDICAID, SELFPAY ==
[2022-12-14] VITALS (19 sets, daily range): BP systolic 125–162; BP diastolic 71–125; PULSE 90–105; RESP 22–26; TEMP 36.7; O2SAT 91–98; BMI 37.9
--- NOTE | 2022-12-14 12:11 | DI.RAD.S_ITS ---
PROCEDURE: XR CHEST 1V INDICATIONS: Shortness of breath TECHNIQUE: One view of the chest was acquired. COMPARISON: [facility], CR, XR CHEST 1V, 12/10/2022, 21:15. FINDINGS: Surgical changes and devices: None. Lungs and pleura: Lungs are clear. No pleural effusions or pneumothorax. Mediastinum: Mediastinal contours appear normal. Heart size is normal. Bones and chest wall: No suspicious bony lesions. Overlying soft tissues appear unremarkable. IMPRESSION: No evidence acute pulmonary process. Dictated by: Ger Preston M.D. on 12/14/2022 at 12:29 Approved by: Ger Preston M.D. on 12/14/2022 at 12:42
--- NOTE | 2022-12-14 12:55 | DI.CT.S_ITS ---
PROCEDURE: CT HEAD/BRAIN WO CON INDICATIONS: persistent facial droop, ? CVA 12/11/22 TECHNIQUE: Noncontrast 4.5 mm thick angled axial sections acquired from the foramen magnum to the vertex, with coronal and sagittal reformats. For radiation dose reduction, the following was used: automated exposure control, adjustment of mA and/or kV according to patient size. COMPARISON: [facility], CT, CT HEAD/BRAIN WO CON, 12/10/2022, 21:11. FINDINGS: Image quality: Excellent. CSF spaces: Basal cisterns are patent. No extra-axial fluid collections. Ventricles are normal in size and shape. Incidental note made of cavum septum pellucidum. Brain: No midline shift. No intracranial masses or hemorrhage. Jaramillo-white matter interface is normal. Skull and face: Calvarium and visualized facial bones are intact, without suspicious lesions. Sinuses: Visualized sinuses and mastoids are clear. IMPRESSION: No acute intracranial process. Dictated by: Ger Preston M.D. on 12/14/2022 at 13:14 Approved by: Ger Preston M.D. on 12/14/2022 at 13:14
[2022-12-14 13:17] LABS: Add Manual Diff / Slide Review NO; Basophils Absolute Auto 100 /uL (0-100); Eosinophils Absolute Auto 100 /uL (0-450); Eosinophils Percent Auto 1.2 % (2-4); Hemoglobin 15.3 g/dL (13.5-17.5); INR 1.2 (0.9-1.3); Lymphocytes Absolute Auto 2600 /uL (1100-4500); Mean Corpuscular Hemoglobin 29.2 PG (26-34); Monocytes Absolute Auto 700 /uL (0-900); Monocytes Percent Auto 6.2 % (3-14); Neutrophils Absolute Auto 7800 /uL (1500-7000); Neutrophils Percent Auto 68.6 % (50-75); Platelet Count 490 X10^3/uL (150-400); Prothrombin Time 13.9 SECONDS (10.1-12.7); Red Blood Cell Count 5.23 X10^6/uL (4.5-5.9); Red Cell Distribution Width 13.4 % (11.6-14.8); White Blood Cell Count 11.3 X10^3/uL (4.5-11.0)
[2022-12-14 13:22] LABS: Alanine Aminotransferase 21 IU/L (<50); Albumin 4.7 g/dL (3.5-5.0); Albumin Globulin Ratio 1.6 (1.0-2.8); Alkaline Phosphatase 110 U/L (38-126); Aspartate Aminotransferase 24 IU/L (17-59); BUN Creatinine Ratio 20.6 (6-22); Bilirubin Total 1.4 mg/dL (0.2-1.3); Blood Urea Nitrogen 21 mg/dL (9-20); Calcium 9.3 mg/dL (8.4-10.2); Carbon Dioxide 19 mmol/L (22-32); Chloride 100 mmol/L (98-107); Estimated Glomerular Filt Rate > 60 mL/min (>60); Glucose 273 mg/dL (70-100); HEMOLYSIS < 15 (0-50); Potassium 4.1 mmol/L (3.4-5.1); Sodium 135 mmol/L (137-145); Total Protein 7.7 g/dL (6.3-8.2)
[2022-12-14 13:23] LABS: Lactate (Lactic Acid) 3.9 mmol/L (0.7-2.1)
[2022-12-14 13:34] LABS: NT-proBNP (BNP-Adult 18+) 42 pg/mL (<125); Troponin I < 0.012 ng/mL (0.01-0.034)
[2022-12-14 14:38] LABS: Ketones (Beta-Hydroxybutyrate) 0.21 mmol/L (<0.27)
[2022-12-14 14:38] LABS: HCO3 VBG 22 mmol/L (24-28); PCO2 VBG 33.1 mmHg (45-50); PO2 VBG 25 mmHg (35-45); pH VBG 7.44 (7.33-7.43)
[2022-12-14 14:39] LABS: Fractionated Inspired Oxygen 21; Oxygen Saturation VBG 49 % (70-75); Total CO2 VBG 23 mmol/L (24-29)
[2022-12-14] MEDS: SODIUM CHLORIDE 0.9% 1,000 ML 1000 ML IV (14:45)
[2022-12-14 15:00] LABS: Reflexed Lactate in 2 Hours Y
[2022-12-14 15:05] LABS: Procalcitonin 0.046 ng/mL (<0.5)
[2022-12-14 15:11] LABS: Lactate 2HR (Lactic Acid Rflx) 3.1 mmol/L (0.7-2.1)
--- NOTE | 2022-12-14 15:20 | ED.NEUROSD ---
HPI - Neuro Symptoms/Deficit General Chief Complaint: Neuro Symptoms/Deficit Stated Complaint: Rt side face no muscle control Time Seen by Provider: 12/14/22 12:02 Source: patient Mode of arrival: Ambulatory Limitations: no limitations History of Present Illness HPI Narrative: This is a 52-year-old male with history of diabetes, hypertension, dyslipidemia with reported stroke earlier this week seen on 12/10/2022 and admitted with negative MRI but suspected potential stroke. Patient states his symptoms included facial droop, he states that time he had a headache and an earache but that has resolved. He states that he never had any weakness of his extremities or difficulty with movement. Note from the EMR states he had difficulty walking a straight line and some slurred speech. Patient states it was just his facial droop that was present he states it is continuing to worsen and now his upper forehead isn't moving as well as his eye and lower face. He states droop has been persisting and getting worse. He denies headaches, he denies vision changes, no double vision. No chest pain. He felt a little short of breath earlier but states he also felt really anxious. States that is resolved. He denies cough cold or congestive symptoms. He denies redness, swelling or fevers. No nausea or vomiting. Denies any diarrhea. He is had some mild constipation. No urinary symptoms. He states normal movement of his arms legs no numbness tingling or weakness of any of his extremities. He states normal movement. He does note he has some chronic neuropathy, states he has diabetes, recently had aspirin added to his medications, takes medications for his neuropathy. She denies surgeries. States allergic to oxycodone and lisinopril. Denies tobacco, alcohol or illicit. He is supposed to see his primary care today but was rescheduled and because of his worsening facial droop presents here. On Anticoagulants: Yes (started on aspirin since 12/12 discharge.) Related Data Home Medications Medication Instructions Recorded Confirmed flash glucose sensor (FreeStyle #1 ea 11/29/20 11/13/22 Amie 2 Sensor kit) insulin aspart U-100 100 unit/mL See Rx Instructions .Route .COMPLEX 03/03/21 12/11/22 (3 mL) subcutaneous pen (Novolog FlexPen U-100 Insulin aspart) insulin detemir U-100 100 unit/mL See Rx Instructions .Route .COMPLEX 03/03/21 11/13/22 (3 mL) subcutaneous pen dulaglutide 0.75 mg/0.5 mL 0.75 mg SUBCUT QWEEK 02/08/22 11/13/22 subcutaneous pen injector atorvastatin 40 mg tablet 40 mg PO DAILY 12/11/22 12/11/22 baclofen 10 mg tablet 10 mg PO BID muscle spasm 12/11/22 12/11/22 cyclobenzaprine 10 mg tablet 10 mg PO BID PRN muscle spasm 12/11/22 12/11/22 dulaglutide 3 mg/0.5 mL 3 mg SUBCUT 12/11/22 subcutaneous pen injector (Trulicity) duloxetine 30 mg capsule,delayed 30 mg PO DAILY 12/11/22 12/11/22 release gabapentin 800 mg tablet 1,200 mg PO 3XD 12/11/22 12/11/22 hydrocodone 7.5 mg-acetaminophen 1 tab PO Q6H PRN pain 12/11/22 12/11/22 325 mg tablet losartan 100 mg tablet 100 mg PO DAILY 12/11/22 12/11/22 metformin 1,000 mg tablet 1,000 mg PO BID 12/11/22 12/11/22 Previous Rx's Medication Instructions Recorded aspirin 81 mg tablet,delayed 81 mg PO DAILY 90 days #90 tabs 12/11/22 release (Adult Aspirin Regimen) clopidogrel 75 mg tablet 75 mg PO DAILY 21 days #21 tabs 12/11/22 prednisone 10 mg tablets in a dose 10 mg PO DAILY #45 ea 12/14/22 pack valacyclovir 1 gram tablet 1,000 mg PO TID 7 days #21 tabs 12/14/22 Allergies Allergy/AdvReac Type Severity Reaction Status Date / Time lisinopril AdvReac Severe cough Verified 12/10/22 20:00 oxycodone AdvReac Severe Rage Verified 12/10/22 20:00 Review of Systems Review of Systems ROS Unobtainable: All systems reviewed & are unremarkable except as noted in HPI and below Hematologic/Lymphatic On Anticoagulants: Yes (started on aspirin since 12/12 discharge.) Patient History Medical History Carpal tunnel syndrome (Unknown) Chronic pain syndrome (Unknown) Chronic right shoulder pain Hx of tendinitis (~2016) Neuropathic pain Primary insomnia (03/13/16) Shoulder pain (2010) Type 2 diabetes mellitus without complication, without long-term current use of insulin (12/15/15) Uncomplicated opioid dependence (03/06/17) Uncomplicated opioid dependence Surgical History History of hernia repair (06/07/17) Hx of hernia repair (2005) Family History Brother Age: 55 Diabetes mellitus Father Essential hypertension Leukemia Mother Alive and well Other Primary insomnia Social History household members: family and friend(s) Smoking Status: Never smoker alcohol intake: current substance use type: does not use Smoking Status: Never smoker alcohol intake frequency: holidays/special occasions only Substance Use Type: does not use Exam Narrative Exam Narrative: GEN: Obese, well appearing male, alert and oriented x 3, patient appears to be in mild distress. HEENT: Atraumatic, pupils are equal round reactive to light, extraocular movements are intact, nares are clear, TMs are clear with no fluid, there is no conjunctival pallor. Throat is clear without any exudates, erythema, tonsillar enlargement or uvular deviation, patient has obvious right-sided facial droop including his forehead, with inability to wrinkle his forehead or lifts eyebrow including decreased ability to close his eye. HEART: Regular rate and rhythm without murmur, clicks, rubs. pulses are equal in upper and lower extremities LUNGS:Lungs clear to auscultation, no wheezes, rales, crackles, chest moves symmetrically ABD:bowel sounds normal, soft, non-tender, no guarding, rebound, rigidity, no masses noted, no hepatosplenomegaly :No CVA tenderness. MSCL: Non-tender, no muscle atrophy, muscles strength 5/5 upper and lower extremities, full range of motion, normal gait NEURO:CN 2-12 intact, sensation normal, finger nose finger test normal, heel gillis test normal SKIN: No rash, erythema or other skin changes noted Initial Vital Signs Initial Vital Signs: Vital Signs Temperature 98.1 F 12/14/22 12:03 Pulse Rate 105 H 12/14/22 12:03 Respiratory Rate 26 H 12/14/22 12:03 Blood Pressure 144/80 H 12/14/22 12:03 Pulse Oximetry 98 12/14/22 12:03 Oxygen Delivery Method Room Air 12/14/22 12:03 Scores NIH Stroke Scale Level of Conciousness: Alert, keenly responsive Ask month/age: Answers both questions correctly. Open/close eyes, close hand: Performs both tasks correctly Best gaze horizontal: Normal Visual rapp: No visual loss Facial palsy: Complete paralysis, absence of movement in the upper and lower face Left arm drift: No drift for full 10 sec Right arm drift: No drift for full 10 sec Left leg drift: No drift for full 5 sec Right leg drift: No drift for full 5 sec Limb ataxia: Absent Sensory on face/arms/legs: Normal, no sensory loss Best language: No aphasia, normal Dysarthria: Normal Extinction or inattention: No abnormality Total NIH Stroke scale score: 3 Course Orders Ordered: ED Orders 12/14/22 12:11 XR chest 1V Stat EKG-12 Lead Stat Measure peak expiratory flow ONCE RT Consult Eval and Treat NOW 12/14/22 12:50 Blood Culture Stat Complete Blood Count AUTO DIFF Stat Comprehensive Metabolic Panel Stat Ketones (Beta-Hydroxybutyrate) Stat Lactate (Lactic Acid) Stat NT-proBNP (BNP-Adult 18+) Stat Procalcitonin Stat Prothrombin Time INR Stat Troponin I Stat 12/14/22 12:55 CT head/brain wo con Stat 12/14/22 14:30 VBG [Venous Blood Gas] Stat Discontinued Medications Sodium Chloride (Normal Saline 0.9%) 1,000 mls @ 1,000 mls/hr IV BOLUS ONE Stop: 12/14/22 15:10 Last Infusion: 12/14/22 16:07 Dose: 0 mls/hr Documented By: Admin: 12/14/22 14:45 Dose: 1,000 mls/hr Documented By: PAIGE Vital Signs Vital signs: Vital Signs - 8 hr 12/14/22 12:03 12/14/22 13:19 12/14/22 13:20 Temperature 98.1 F Pulse Rate 105 H 90 95 H Respiratory Rate 26 H Blood Pressure 144/80 H Pulse Oximetry 98 96 95 Oxygen Delivery Method Room Air 12/14/22 13:20 12/14/22 13:30 12/14/22 13:31 Temperature Pulse Rate 98 H Respiratory Rate 22 Blood Pressure 125/85 159/125 H Pulse Oximetry 95 Oxygen Delivery Method Room Air 12/14/22 13:31 12/14/22 13:45 12/14/22 13:45 Temperature Pulse Rate 98 H 98 H Respiratory Rate Blood Pressure 132/86 Pulse Oximetry 93 91 Oxygen Delivery Method 12/14/22 14:00 12/14/22 14:01 12/14/22 14:01 Temperature Pulse Rate 104 H 105 H Respiratory Rate Blood Pressure 133/71 Pulse Oximetry 92 95 Oxygen Delivery Method 12/14/22 14:16 12/14/22 14:16 12/14/22 14:30 Temperature Pulse Rate 96 H 102 H Respiratory Rate 22 Blood Pressure 137/74 Pulse Oximetry 95 93 Oxygen Delivery Method Room Air 12/14/22 14:43 12/14/22 14:46 12/14/22 15:00 Temperature Pulse Rate 98 H Respiratory Rate Blood Pressure 133/76 131/77 Pulse Oximetry 93 Oxygen Delivery Method 12/14/22 15:00 12/14/22 15:15 12/14/22 15:15 Temperature Pulse Rate 102 H 105 H Respiratory Rate Blood Pressure 125/72 Pulse Oximetry 93 93 Oxygen Delivery Method 12/14/22 15:30 12/14/22 15:31 12/14/22 15:31 Temperature Pulse Rate 92 H 98 H Respiratory Rate Blood Pressure 156/88 H Pulse Oximetry 96 96 Oxygen Delivery Method 12/14/22 15:45 12/14/22 15:45 12/14/22 16:00 Temperature Pulse Rate 96 H 95 H Respiratory Rate Blood Pressure 162/94 H Pulse Oximetry 96 97 Oxygen Delivery Method 12/14/22 16:01 12/14/22 16:01 Temperature Pulse Rate 95 H Respiratory Rate Blood Pressure 133/79 Pulse Oximetry 97 Oxygen Delivery Method MDM - Neuro Symptoms/Deficit Lab Data 12/14/22 12:50 12/14/22 12:50 Labs: Lab Results 12/14/22 12/14/22 12/14/22 Range/Units 12:50 12:50 12:50 WBC 11.3 H (4.5-11.0) X10^3/uL RBC 5.23 (4.5-5.9) X10^6/uL Hgb 15.3 (13.5-17.5) g/dL Hct 45.0 (41-53) % MCV 86.0 (80-100) fL MCH 29.2 (26-34) PG MCHC 34.0 (30-36) % RDW 13.4 (11.6-14.8) % Plt Count 490 H (150-400) X10^3/uL Neut % (Auto) 68.6 (50-75) % Lymph % (Auto) 23.0 L (25-40) % Craig % (Auto) 6.2 (3-14) % Eos % (Auto) 1.2 L (2-4) % Baso % (Auto) 1.0 (0-2) % Neut # (Auto) 7800 H (5258-9371) /uL Lymph # (Auto) 2600 (8475-0904) /uL Craig # (Auto) 700 (0-900) /uL Eos # (Auto) 100 (0-450) /uL Baso # (Auto) 100 (0-100) /uL PT 13.9 H (10.1-12.7) SECONDS INR 1.2 (0.9-1.3) VBG pH (7.33-7.43) VBG pCO2 (45-50) mmHg VBG pO2 (35-45) mmHg VBG HCO3 (24-28) mmol/L VBG Total CO2 (24-29) mmol/L VBG O2 Saturation (70-75) % VBG Base Excess (0-4) mmol/L FiO2 Sodium 135 L (137-145) mmol/L Potassium 4.1 (3.4-5.1) mmol/L Chloride 100 (98-107) mmol/L Carbon Dioxide 19 L (22-32) mmol/L BUN 21 H (9-20) mg/dL Creatinine 1.02 (0.66-1.25) mg/dL Estimated GFR > 60 (>60) mL/min BUN/Creatinine Ratio 20.6 (6-22) Glucose 273 H (70-100) mg/dL Lactate (0.7-2.1) mmol/L Calcium 9.3 (8.4-10.2) mg/dL Total Bilirubin 1.4 H (0.2-1.3) mg/dL AST 24 (17-59) IU/L ALT 21 (<50) IU/L Alkaline Phosphatase 110 (38-126) U/L Troponin I < 0.012 (0.01-0.034) ng/mL NT-Pro-B Natriuret Pep 42 (<125) pg/mL Total Protein 7.7 (6.3-8.2) g/dL Albumin 4.7 (3.5-5.0) g/dL Globulin 3.0 (1.7-4.1) g/dL Albumin/Globulin Ratio 1.6 (1.0-2.8) Procalcitonin (<0.5) ng/mL Ketones (<0.27) mmol/L 12/14/22 12/14/22 12/14/22 Range/Units 12:50 12:50 12:50 WBC (4.5-11.0) X10^3/uL RBC (4.5-5.9) X10^6/uL Hgb (13.5-17.5) g/dL Hct (41-53) % MCV (80-100) fL MCH (26-34) PG MCHC (30-36) % RDW (11.6-14.8) % Plt Count (150-400) X10^3/uL Neut % (Auto) (50-75) % Lymph % (Auto) (25-40) % Craig % (Auto) (3-14) % Eos % (Auto) (2-4) % Baso % (Auto) (0-2) % Neut # (Auto) (7588-7264) /uL Lymph # (Auto) (2921-2733) /uL Craig # (Auto) (0-900) /uL Eos # (Auto) (0-450) /uL Baso # (Auto) (0-100) /uL PT (10.1-12.7) SECONDS INR (0.9-1.3) VBG pH (7.33-7.43) VBG pCO2 (45-50) mmHg VBG pO2 (35-45) mmHg VBG HCO3 (24-28) mmol/L VBG Total CO2 (24-29) mmol/L VBG O2 Saturation (70-75) % VBG Base Excess (0-4) mmol/L FiO2 Sodium (137-145) mmol/L Potassium (3.4-5.1) mmol/L Chloride (98-107) mmol/L Carbon Dioxide (22-32) mmol/L BUN (9-20) mg/dL Creatinine (0.66-1.25) mg/dL Estimated GFR (>60) mL/min BUN/Creatinine Ratio (6-22) Glucose (70-100) mg/dL Lactate 3.9 H (0.7-2.1) mmol/L Calcium (8.4-10.2) mg/dL Total Bilirubin (0.2-1.3) mg/dL AST (17-59) IU/L ALT (<50) IU/L Alkaline Phosphatase (38-126) U/L Troponin I (0.01-0.034) ng/mL NT-Pro-B Natriuret Pep (<125) pg/mL Total Protein (6.3-8.2) g/dL Albumin (3.5-5.0) g/dL Globulin (1.7-4.1) g/dL Albumin/Globulin Ratio (1.0-2.8) Procalcitonin 0.046 (<0.5) ng/mL Ketones 0.21 (<0.27) mmol/L 12/14/22 12/14/22 Range/Units 14:30 14:32 WBC (4.5-11.0) X10^3/uL RBC (4.5-5.9) X10^6/uL Hgb (13.5-17.5) g/dL Hct (41-53) % MCV (80-100) fL MCH (26-34) PG MCHC (30-36) % RDW (11.6-14.8) % Plt Count (150-400) X10^3/uL Neut % (Auto) (50-75) % Lymph % (Auto) (25-40) % Craig % (Auto) (3-14) % Eos % (Auto) (2-4) % Baso % (Auto) (0-2) % Neut # (Auto) (3610-5429) /uL Lymph # (Auto) (6700-4851) /uL Craig # (Auto) (0-900) /uL Eos # (Auto) (0-450) /uL Baso # (Auto) (0-100) /uL PT (10.1-12.7) SECONDS INR (0.9-1.3) VBG pH 7.44 H (7.33-7.43) VBG pCO2 33.1 L (45-50) mmHg VBG pO2 25 L (35-45) mmHg VBG HCO3 22 L (24-28) mmol/L VBG Total CO2 23 L (24-29) mmol/L VBG O2 Saturation 49 L (70-75) % VBG Base Excess -2.0 L (0-4) mmol/L FiO2 21 Sodium (137-145) mmol/L Potassium (3.4-5.1) mmol/L Chloride (98-107) mmol/L Carbon Dioxide (22-32) mmol/L BUN (9-20) mg/dL Creatinine (0.66-1.25) mg/dL Estimated GFR (>60) mL/min BUN/Creatinine Ratio (6-22) Glucose (70-100) mg/dL Lactate 3.1 H (0.7-2.1) mmol/L Calcium (8.4-10.2) mg/dL Total Bilirubin (0.2-1.3) mg/dL AST (17-59) IU/L ALT (<50) IU/L Alkaline Phosphatase (38-126) U/L Troponin I (0.01-0.034) ng/mL NT-Pro-B Natriuret Pep (<125) pg/mL Total Protein (6.3-8.2) g/dL Albumin (3.5-5.0) g/dL Globulin (1.7-4.1) g/dL Albumin/Globulin Ratio (1.0-2.8) Procalcitonin (<0.5) ng/mL Ketones (<0.27) mmol/L Point of Care Testing Glucose POC [address] scan - head: Radiologist's Impression: [address] [address] [address] Scan Report Signed Patient: José Starr MR#: [id number] : 1970 Acct:[id number] Age/Sex: 52 / M Date of Service: 12/14/22 Loc: ED Accession Number: [id number] ?? Procedure: CT head/brain wo con Ordering Provider: Debora Dumont D.O. PROCEDURE:? CT HEAD/BRAIN WO CON ? INDICATIONS:? persistent facial droop, ? CVA 12/11/22 ? TECHNIQUE:? Noncontrast 4.5 mm thick angled axial sections acquired from the foramen magnum to the vertex, with coronal and sagittal reformats.? For radiation dose reduction, the following was used:? automated exposure control, adjustment of mA and/or kV according to patient size.? ? COMPARISON:? [facility], CT, CT HEAD/BRAIN WO CON, 12/10/2022, 21:11. ? FINDINGS:? Image quality:? Excellent.? ? CSF spaces:? Basal cisterns are patent.? No extra-axial fluid collections.? Ventricles are normal in size and shape.? Incidental note made of cavum septum pellucidum.? ? Brain:? No midline shift.? No intracranial masses or hemorrhage.? Jaramillo-white matter interface is normal.? ? Skull and face:? Calvarium and visualized facial bones are intact, without suspicious lesions.? ? Sinuses:? Visualized sinuses and mastoids are clear.? ? IMPRESSION:? No acute intracranial process. ? ? Dictated by: Ger Preston M.D. on 12/14/2022 at 13:14 ? ? Approved by: Ger Preston M.D. on 12/14/2022 at 13:14?? Chest x-ray: Radiologist's Impression: [address] [address] XRay Report Signed Patient: José Starr MR#: [id number] : 1970 Acct:[id number] Age/Sex: 52 / M Date of Service: 12/14/22 Loc: ED Accession Number: [id number] ?? Procedure: XR chest 1V Ordering Provider: Debora Dumont D.O. PROCEDURE:? XR CHEST 1V ? INDICATIONS:? Shortness of breath ? TECHNIQUE:? One view of the chest was acquired.? ? COMPARISON:? [facility], CR, XR CHEST 1V, 12/10/2022, 21:15. ? FINDINGS:? ? Surgical changes and devices:? None.? ? Lungs and pleura:? Lungs are clear.? No pleural effusions or pneumothorax.? ? Mediastinum:? Mediastinal contours appear normal.? Heart size is normal.? ? Bones and chest wall:? No suspicious bony lesions.? Overlying soft tissues appear unremarkable.? ? IMPRESSION:? No evidence acute pulmonary process. ? ? ? Dictated by: Ger Preston M.D. on 12/14/2022 at 12:29 ? ? Approved by: Ger Preston M.D. on 12/14/2022 at 12:42?? ECG Data Attestation: I personally reviewed and interpreted this ECG as follows: Interpretation: Sinus rhythm rate of 99 IN 200 QRS of [address]TC [address] elevation depression noted. 12/04/22 prior has no change. MDM Narrative Medical decision making narrative: This is a 52-year-old male who presents with complaint of worsening facial droop after being diagnosed with stroke several days ago. Patient was admitted on the 10 of December, there main can symptom was facial droop but patient did report some difficulty walking a straight line had headache and ear pain. He was admitted had MR which was negative still had suspected potential stroke and was placed on medications for this. Patient's visit in the emergency department in his hospital stay was reviewed. Patient states facial droop has been slowly worsening and before was mostly his lower face but now including his upper face and eye. Patient states he is not having any other symptoms he is adamant that he did not have any difficulty with movement or ambulation before. Patient states that he has not had any other neurologic changes. He denies eye pain or other issues. He states he did have a headache but that has resolved as well as ear pain. 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 Discussed with patient will cover him with antiviral, steroids and drops for his eye. He should have short follow-up as there was suspicion for stroke and adjustment of his medications as needed. We did discuss return precautions. He had repeat head CT which is negative chest x-ray which showed no acute change. Patient's CBC was fairly normal glucose was 273 but electrolytes renal function did not show major changes bilirubin was 1.4 LFTs were negative trope was negative protocol was negative. Patient's lactate was elevated 3.9 is trending down words even before he received fluids. Patient states that he was feeling quite anxious and breathing quickly. He feels much improved now without any additional interventions. His VBG showed a 7.44. No anion gap or ketones are noted. I suspect patient may have been hyperventilating a little bit he has no other clear infectious symptoms or other changes and he comfortable and safe for discharge. Discharge Plan Departure Patient Disposition: Home Clinical Impression: Whitney's palsy Instructions: DI for [place] Palsy Activity Restrictions/Additional Instructions: I suspect that you have [place] Palsy. You do have risk factors for stroke, your MRI was negative on 12/11/22. Discuss with your physician whether to continue your current medications for stroke prevention. They may wish to continue these medications. Take antivirals until completed. Take steroids until completed. This medication will likely elevate your blood sugar for the short term. Use saline drops to the affected eye every hour as needed. You may wish to tape your right eye closed at nighttime to prevent it from drying out. Prescription sent to [facility] in [place]. Please return for new or worsening symptoms eye pain decreasing vision, severe headaches, new numbness, tingling or weakness, difficulty with movement, new chest pain or shortness of breath, vomiting or other new or concerning changes. Prescriptions: New prednisone 10 mg tablets,dose pack 10 mg PO DAILY Qty: 45 0RF Rx Instructions: 60 mg p.o. once daily x5 days, then 50 mg p.o. x1 day, then 40 mg p.o. x1 day, 30 mg p.o. x1 day, then 20 mg p.o. x1 day then 10 mg p.o. x1 day valacyclovir 1 gram tablet 1,000 mg PO TID 7 Days Qty: 21 0RF No Action dulaglutide 0.75 mg/0.5 mL pen injector 0.75 mg SUBCUT QWEEK (DME) FreeStyle Amie 2 Sensor Kit See Rx Instructions [facility] Rx Instructions: As directed insulin detemir U-100 100 unit/mL (3 mL) insulin pen See Rx Instructions .ROUTE .COMPLEX Patient Comments: Sliding scale given by provider; pt unable to recall sliding scale info Rx Instructions: SUBCUT at bedtime based on sliding scale insulin aspart U-100 [Novolog FlexPen U-100 Insulin] 100 unit/mL (3 mL) insulin pen See Rx Instructions .ROUTE .COMPLEX Rx Instructions: sliding scale 25-35 units before each meal cyclobenzaprine 10 mg tablet 10 mg PO BID PRN (Reason: muscle spasm) atorvastatin 40 mg tablet 40 mg PO DAILY gabapentin 800 mg tablet 1,200 mg PO 3XD baclofen 10 mg tablet 10 mg PO BID hydrocodone-acetaminophen 7.5-325 mg tablet 1 tab PO Q6H PRN (Reason: pain) metformin 1,000 mg tablet 1,000 mg PO BID losartan 100 mg tablet 100 mg PO DAILY duloxetine 30 mg capsule,delayed release(DR/EC) 30 mg PO DAILY Trulicity 3 mg/0.5 mL pen injector 3 mg SUBCUT aspirin [Adult Aspirin Regimen] 81 mg tablet,delayed release (DR/EC) 81 mg PO DAILY 90 Days Qty: 90 0RF clopidogrel 75 mg tablet 75 mg PO DAILY 21 Days Qty: 21 0RF Referrals: Oswaldo Pickering MD [Primary Care Provider] - Kiran Mojica MD [Physician] - Stand Alone Forms: Patient Portal/API
== END 2022-12-14 16:24 | disposition home or self-care (01) ==
PROVIDERS: Emergency Provider Emergency Medicine; Family Provider Student in an Organized Health Care Education/Training Program; PCP Student in an Organized Health Care Education/Training Program
DX: G51.0 Bell's palsy (principal); R29.703 NIHSS score 3; R06.02 Shortness of breath; Z79.82 Long term (current) use of aspirin
CPT/HCPCS: 36415; 70450; 71045; 80053; 82009; 82805; 82962; 83605; 83880; 84145; 84484; 85025; 85610; 87040; 93005; 93010; 99284

== ENCOUNTER → 2023-03-23 12:02 | Outpatient (CLI) | payer OTHER, MEDICAID, SELFPAY ==
--- NOTE | 2023-03-23 12:04 | DI.RAD.S_ITS ---
PROCEDURE: XR THORACIC SPINE 3V INDICATIONS: chronic pain with riduculopathy TECHNIQUE: 3 views of the thoracic spine were acquired. COMPARISON: [facility], CR, XR THORACIC SPINE 3V, 11/08/2017, 9:24. FINDINGS: Bones: No fractures or dislocations. No suspicious bony lesions. Eleven pairs of ribs are noted, and appear intact where visualized. Mild levoconvex curvature centered at T10-T11. Mild degenerative changes with disc height loss and degenerative endplate changes. Soft tissues: No paravertebral stripe thickening. IMPRESSION: Mild degenerative changes of the thoracic spine. Dictated by: Neri Shah M.D. on 03/23/2023 at 13:48 Approved by: Neri Shah M.D. on 03/23/2023 at 13:51
--- NOTE | 2023-03-23 12:04 | DI.RAD.S_ITS ---
PROCEDURE: XR LUMBAR SPINE 2-3V INDICATIONS: chronic pain with riduculopathy TECHNIQUE: 3 views of the lumbar spine were acquired. COMPARISON: None. FINDINGS: Bones: 5 [id number] vertebrae are present. Transitional anatomy with lumbarization of the S1 vertebral body. Straightening of the normal lumbar lordosis. Facet arthropathy of the lower lumbar spine. No vertebral body compression fractures. No suspicious bony lesions. Soft tissues: Overlying bowel gas pattern is normal. No suspicious soft tissue calcifications. IMPRESSION: Mild degenerative changes of the lower lumbar spine. Transitional anatomy with lumbarization of the S1 vertebral body. Dictated by: Nrei Shah M.D. on 03/23/2023 at 13:45 Approved by: Neri Shah M.D. on 03/23/2023 at 13:46
--- NOTE | 2023-03-23 12:04 | DI.RAD.S_ITS ---
PROCEDURE: XR CERVICAL SPINE 2V OR 3V INDICATIONS: chronic pain with riduculopathy TECHNIQUE: 3 view(s) of the cervical spine were acquired. COMPARISON: [facility], , XR CERVICAL SPINE 2V OR 3V, 03/17/2018, 18:25. FINDINGS: Bones: No fractures or dislocations to the C7 level. Straightening of normal cervical lordosis with mild reversal centered C6. There are multilevel degenerative changes of the cervical spine with facet and uncovertebral arthropathy, disc height loss with degenerative endplate changes and spurring. This is worse in the lower cervical spine. The lateral masses of C1 appear intact on the odontoid view. No suspicious bony lesions. Bilateral C7 cervical ribs are again noted. Soft tissues: No prevertebral soft tissue swelling. IMPRESSION: Degenerative changes of the cervical spine. Bilateral C7 cervical ribs are noted. Dictated by: Neri Shah M.D. on 03/23/2023 at 13:46 Approved by: Neri Shah M.D. on 03/23/2023 at 13:48
== END ==
PROVIDERS: Family Provider Student in an Organized Health Care Education/Training Program; PCP Family Medicine; Referring Provider Family Medicine; Visit Provider Family Medicine
DX: M47.22 Other spondylosis with radiculopathy, cervical region (principal); M50.10 Cervical disc disorder with radiculopathy, unspecified cervical region; M47.814 Spondylosis without myelopathy or radiculopathy, thoracic region; M47.816 Spondylosis without myelopathy or radiculopathy, lumbar region; M79.2 Neuralgia and neuritis, unspecified; M54.50 Low back pain, unspecified; G89.29 Other chronic pain
CPT/HCPCS: 72040; 72072; 72100

== ENCOUNTER 2023-06-15 17:48 | Emergency (ER) | payer OTHER, MEDICAID, SELFPAY ==
[2023-06-15 17:54] VITALS: BP 119/65; PULSE 96; RESP 16; TEMP 36.6; O2SAT 98; BMI 34.2
--- NOTE | 2023-06-15 18:06 | PC.NURSE ---
pt in nad, playing game on phone.
--- NOTE | 2023-06-15 18:52 | ED.EXTPRO ---
HPI - Extremity Problem <Darius Mascorro PA-C - Last Filed: 06/15/23 18:58> General Chief complaint: Extremity Problem,Nontraumatic Stated complaint: lt arm injury Time Seen by Provider: 06/15/23 18:09 Source: patient Mode of arrival: Family Vehicle History of Present Illness HPI Narrative: This is a 53-year-old male presents emergency department due to left biceps pain. Has been working physical therapy but states that his left bicep feels ?different?. Denies any acute trauma to the left arm. Denies any numbness. Related Data Home Medications Medication Instructions Recorded Confirmed flash glucose sensor (FreeStyle #1 ea 11/29/20 05/30/23 Amie 2 Sensor kit) atorvastatin 40 mg tablet 40 mg PO DAILY 12/11/22 05/30/23 cyclobenzaprine 10 mg tablet 10 mg PO BID PRN muscle spasm 12/11/22 05/30/23 gabapentin 800 mg tablet 1,200 mg PO 3XD 12/11/22 05/30/23 losartan 100 mg tablet 100 mg PO DAILY 12/11/22 05/30/23 metformin 1,000 mg tablet 1,000 mg PO BID 12/11/22 05/30/23 insulin aspart U-100 100 unit/mL See Rx Instructions .Route .COMPLEX 03/28/23 05/30/23 (3 mL) subcutaneous pen (Novolog FlexPen U-100 Insulin aspart) pen needle, diabetic 31 gauge x #1,200 ea 03/28/23 05/30/23 5/16 (BD Ultra-Fine Short Pen Needle) tirzepatide 10 mg/0.5 mL mg SUBCUT 03/28/23 05/30/23 subcutaneous pen injector (Sandhya) Previous Rx's Medication Instructions Recorded meloxicam 7.5 mg tablet 7.5 mg PO DAILY #30 tabs 03/08/23 hydrocodone 7.5 mg-acetaminophen 1 tab PO Q6H PRN pain 30 days #100 03/28/23 325 mg tablet tabs duloxetine 60 mg capsule,delayed 60 mg PO DAILY #30 caps 05/21/23 release Allergies Allergy/AdvReac Type Severity Reaction Status Date / Time lisinopril AdvReac Severe cough Verified 05/30/23 14:58 oxycodone AdvReac Severe Rage Verified 05/30/23 14:58 Review of Systems <Darius Mascorro PA-C - Last Filed: 06/15/23 18:58> Review of Systems Narrative: GENERAL: Denies chills, fatigue, malaise, fever, sweats. HEENT: Denies sinus pain, ear pain, sore throat, difficulty swallowing, dizziness. RESPIRATORY: Denies dyspnea, cough, wheezing, hemoptysis, sputum. CARDIOVASCULAR: Denies chest pain, palpitations, orthopnea, edema, GASTROINTESTINAL: Denies nausea, vomiting, abdominal pain, diarrhea, constipation, melena. : Denies dysuria, frequency, incontinence, hematuria, urinary retention. MUSCULOSKELETAL: Left bicep pain SKIN: Denies rash, skin lesions, or other NEUROLOGIC: Denies weakness, headache, numbness, change in speech, confusion, seizures, incoordination. PSYCHIATRIC: No concerning psychosocial issues. 12 point review of systems is negative except for those stated above Patient History <Darius Mascorro PA-C - Last Filed: 06/15/23 18:58> Medical History Lumbar radiculopathy Uncomplicated opioid dependence Shoulder pain (2010) Hx of tendinitis (~2017) Chronic pain syndrome (Unknown) Carpal tunnel syndrome (Unknown) Uncomplicated opioid dependence (03/06/17) Primary insomnia (03/13/16) Type 2 diabetes mellitus without complication, without long-term current use of insulin (12/15/15) Chronic right shoulder pain Neuropathic pain Surgical History Hx of hernia repair (2005) History of hernia repair (06/07/17) Family History Brother Age: 55 Diabetes mellitus Father Essential hypertension Leukemia Mother Alive and well Other Primary insomnia Social History household members: family and friend(s) Smoking Status: Never smoker alcohol intake: current substance use type: does not use Smoking Status: Never smoker alcohol intake frequency: holidays/special occasions only Substance Use Type: does not use Exam <VALENTÍN Hall Last Filed: 06/15/23 18:58> Narrative Exam Narrative: GENERAL: Well-developed patient, in mild distress. HEAD: Atraumatic. Normocephalic. EYES: Pupils equal round and reactive. Extraocular motions intact. No scleral icterus. No injection or drainage. ENT: Nose without bleeding, purulent drainage. Throat without erythema, tonsillar hypertrophy or exudate. Airway patent. NECK: Trachea midline. Non tender EXTREMITIES: Maintains adequate range of motion and strength through the shoulder joint, maintains flexion through the elbow. Neurovascularly intact throughout. NEURO: AOx3. SKIN: No rash or erythema of visible areas Initial Vital Signs Initial Vital Signs: Vital Signs Temperature 97.9 F 06/15/23 17:54 Pulse Rate 96 H 06/15/23 17:54 Respiratory Rate 16 06/15/23 17:54 Blood Pressure 119/65 06/15/23 17:54 Pulse Oximetry 98 06/15/23 17:54 Oxygen Delivery Method Room Air 06/15/23 17:54 <Fareed Powell DO - Last Filed: 06/15/23 19:13> Initial Vital Signs Initial Vital Signs: Vital Signs Temperature 97.9 F 06/15/23 17:54 Pulse Rate 96 H 06/15/23 17:54 Respiratory Rate 16 06/15/23 17:54 Blood Pressure 119/65 06/15/23 17:54 Pulse Oximetry 98 06/15/23 17:54 Oxygen Delivery Method Room Air 06/15/23 17:54 Course <Darius Mascorro PA-C - Last Filed: 06/15/23 18:58> Vital Signs Vital signs: Vital Signs - 8 hr 06/15/23 17:54 Temperature 97.9 F Pulse Rate 96 H Respiratory Rate 16 Blood Pressure 119/65 Pulse Oximetry 98 Oxygen Delivery Method Room Air <DO Donald Mari Last Filed: 06/15/23 19:13> Vital Signs Vital signs: Vital Signs - 8 hr 06/15/23 17:54 Temperature 97.9 F Pulse Rate 96 H Respiratory Rate 16 Blood Pressure 119/65 Pulse Oximetry 98 Oxygen Delivery Method Room Air MDM - Extremity (Nontraumatic) <Darius Mascorro PA-C - Last Filed: 06/15/23 18:58> MDM Narrative Medical decision making narrative: ED course: This is a 53-year-old male presents emergency department due to a possible left bicep tendon injury. No significant abnormalities noted on physical exam. Recommended follow up with his primary care provider for possible advanced imaging. Neurovascularly intact throughout. CC: Left biceps pain Complicating co-morbidities: None Data collected from: Previous notes Medical records reviewed: Patient has not been here for similar complaints in the past Differential considered, but not limited to: Left biceps tendon tear, left bicep muscle tear Exam documented above, pertinent findings include: Maintains adequate strength with the left shoulder as well as flexion of the elbow. Lab Test results independently reviewed as above. Pertinent findings: None obtained Imaging studies independently reviewed: None obtained Scores Used: None MIPS Elements: None Consultations: None Treatments: None Re-evaluations: None Discussion: Discussed plan with the patient was comfortable with the plan Diagnosis: Left bicep injure Disposition: see below, along with detailed discharge instructions that have been reviewed with patient as well as indications for ED re-evaluation and additional outpatient follow up Discharge Plan Departure Patient Disposition: Home Clinical Impression: Injury of biceps brachii muscle Activity Restrictions/Additional Instructions: Thank you for coming to the [facility] Emergency Department today. You may have an injury to the tendons connecting your bicep to shoulder. This can be treated on outpatient basis. Please follow up with the primary care provider for possible advanced imaging for further evaluation. Please return to the emergency department if you develop any significant new or worsening pain, numbness, or any other concerning signs or symptoms. I hope you feel better soon. Please follow up with your primary care provider within a week if your symptoms continue. If you do not have a primary care provider please contact the [facility] Resource line at [phone]. They will ask some questions about your medical history and help you get set up with a provider in the community. Prescriptions: No Action meloxicam 7.5 mg tablet 7.5 mg PO DAILY Qty: 30 2RF Mounjaro 10 mg/0.5 mL pen injector SUBCUT Patient Comments: [NO ORIGINAL SIG] (DME) pen needle, diabetic [BD Ultra-Fine Short Pen Needle] 31 gauge x 5/16 needle See Rx Instructions .ROUTE .MEDSUPPLY Qty: 1200 Patient Comments: [NO ORIGINAL SIG] Rx Instructions: As directed hydrocodone-acetaminophen 7.5-325 mg tablet 1 tab PO Q6H MDD 4 tabs PRN (Reason: pain) 30 Days Qty: 100 0RF duloxetine 60 mg capsule,delayed release(DR/EC) 60 mg PO DAILY Qty: 30 2RF (DME) FreeStyle Amie 2 Sensor Kit See Rx Instructions .ROUTE .MEDSUPPLY Qty: 1 Rx Instructions: As directed insulin aspart U-100 [Novolog FlexPen U-100 Insulin] 100 unit/mL (3 mL) insulin pen See Rx Instructions .ROUTE .COMPLEX Rx Instructions: sliding scale 6-10 units before each meal on weekends if needed cyclobenzaprine 10 mg tablet 10 mg PO BID PRN (Reason: muscle spasm) atorvastatin 40 mg tablet 40 mg PO DAILY gabapentin 800 mg tablet 1,200 mg PO 3XD metformin 1,000 mg tablet 1,000 mg PO BID losartan 100 mg tablet 100 mg PO DAILY Referrals: Ulysses Meier MD [Primary Care Provider] - Stand Alone Forms: Patient Portal/API ED Sign-out <Fareed Powell, - Last Filed: 06/15/23 19:13> Cosign ED Attending Cosignature Attestation: Dr Powell Co-Sign Statement: I was available for consultation during this patient's emergency department visit. This chart is signed by myself for administrative purposes only. I did not have direct contact with this patient during this visit. They were seen independently by the APC.
== END 2023-06-15 18:59 | disposition home or self-care (01) ==
PROVIDERS: Emergency Provider Physician Assistant Medical; Family Provider Family Medicine; PCP Family Medicine
DX: S46.202A Unspecified injury of muscle, fascia and tendon of other parts of biceps, left arm, initial encounter (principal); X58.XXXA Exposure to other specified factors, initial encounter
CPT/HCPCS: 99281

== ENCOUNTER → 2023-07-16 15:24 | Outpatient (CLI) | payer OTHER, MEDICAID, SELFPAY ==
--- NOTE | 2023-07-16 16:00 | DI.MRI.S_ITS ---
PROCEDURE: MR ELBOW LT W CON INDICATIONS: L elbow injury TECHNIQUE: Noncontrast coronal proton density fast spin echo and T2 fast spin echo with fat saturation, axial and sagittal T1 spin echo and T2 fast spin echo with fat saturation through the elbow. COMPARISON: None. FINDINGS: Image quality: Excellent. Lateral structures: The lateral ulnar collateral ligament and radial collateral ligament both appear intact. The overlying common extensor tendon also appears normal. Medial structures: The ulnar collateral ligament appears thickened with intrasubstance T2 hyperintense signal at its medial epicondylar insertion. The overlying common flexor tendon appears thickened with intrasubstance T2 hyperintense signal and surrounding edema at its medial epicondylar insertion.. The ulnar nerve appears normal in size and signal within the cubital tunnel. Anterior structures: The biceps and brachialis tendons both appear intact as they insert onto the proximal radius and ulna, respectively. No bicipitoradial bursal fluid. The median and radial neurovascular bundles appear normal; no focal muscle atrophy to suggest nerve impingement. Posterior structures: There is mildly thickened distal triceps tendon at its olecranon insertion with small amount of fluid distending olecranon bursa. Bone and cartilage: No bone marrow contusions or fractures. No osteochondral injuries. IMPRESSION: 1. Tendinosis/low-grade partial-thickness tear involving distal triceps tendon at its proximal olecranon insertion. Small amount of fluid distending olecranon bursa concerning for low-grade bursitis. 2. Sprain/low-grade partial-thickness tear involving proximal ulnar collateral ligament. Tendinosis and low-grade intrasubstance partial-thickness tear involving overlying common flexor tendon origin. Finding is suggestive of low-grade medial epicondylitis. 3. No fracture or dislocation. No gross osteochondral injuries. Dictated by: Segundo Cam M.D. on 07/17/2023 at 9:18 Approved by: Segundo Cam M.D. on 07/17/2023 at 9:20
--- NOTE | 2023-07-16 16:00 | DI.MRI.S_ITS ---
PROCEDURE: MR CERVICAL SPINE WO CON INDICATIONS: CERVICAL RADICULOPATHY TECHNIQUE: Noncontrast sagittal T1 spin echo and T2 fast spin echo, sagittal STIR, foraminal oblique sagittal T2 fast spin echo, and axial gradient echo or T2 fast spin echo through the cervical spine. COMPARISON: [facility], MR, MR CERVICAL SPINE WO CON, 09/16/2018, 17:24. FINDINGS: Image quality: Excellent. Alignment and Curvature: Mild reversal the normal cervical lordosis. Bone Marrow: Marrow demonstrates normal overall signal. Spinal Cord: Visualized spinal cord has normal size and signal. No cerebellar tonsillar herniation. Paraspinous Soft Tissues: No paravertebral masses. Prevertebral soft tissues are normal in thickness. C2-C3: Disc desiccation. Mild central disc bulge. No central canal or neural foraminal stenosis. C3-C4: Disc desiccation. Mild posterior disc osteophyte complex. Mild central canal stenosis is stable. Facet and uncovertebral arthropathy. Mild left neural foraminal stenosis is stable. No right neural foraminal stenosis. C4-C5: Disc desiccation height loss. Posterior disc osteophyte complex abutting the ventral cord, mildly asymmetric to the left. Stable mild to moderate central canal stenosis. Facet and uncovertebral arthropathy. No neural foraminal stenosis. C5-C6: Disc desiccation. Mild posterior disc osteophyte complex. Mild to moderate central canal stenosis is stable compared to prior. Facet and uncovertebral arthropathy. Mild to moderate bilateral neural foraminal stenosis is stable compared to prior. C6-C7: Disc desiccation. Posterior disc osteophyte complex abutting the ventral cord. Stable mild to moderate central canal stenosis. Facet and uncovertebral arthropathy. Stable mild bilateral neural foraminal stenosis. C7-T1: No central canal or neural foraminal stenosis. IMPRESSION: 1. Multilevel degenerative changes of the cervical spine are not significantly changed compared to prior exam. 2. There is [id number]-uwydipum multilevel central canal stenosis. 3. Mild multilevel neural foraminal stenosis. Dictated by: Neri Shah M.D. on 07/16/2023 at 16:34 Approved by: Neri Shah M.D. on 07/16/2023 at 16:39
--- NOTE | 2023-07-16 16:00 | DI.MRI.S_ITS ---
PROCEDURE: MR LUMBAR SPINE WO CON INDICATIONS: LUMBAR RADICULOPATHY TECHNIQUE: Noncontrast sagittal T1 spin echo and T2 fast echo, sagittal STIR, and T2 fast spin echo through the lumbar spine. In cases with scoliosis, additional coronal T2 fast spin echo may be performed. COMPARISON: None. FINDINGS: Image quality: Excellent. Alignment and Curvature: There is normal bony alignment. Bone Marrow: Marrow is of normal overall signal. No acute vertebral body compression fractures. Spinal Cord: Conus medullaris terminates at the L1 level. Visualized cord demonstrates normal signal and size. Paraspinous Soft Tissues: No paravertebral masses. Horseshoe kidney. T12-L1: Unremarkable. L1-L2: Broad-based disc bulge. Mild bilateral neural foraminal narrowing. L2-L3: Broad-based disc bulge. Small left facet effusion. Mild spinal canal narrowing. Mild neural foraminal narrowing. L3-L4: Broad-based disc bulge, facet hypertrophy, trace facet effusions. Moderate right and onel-pu-jzkoedzc left neural foraminal narrowing. Ltyc-if-dmrjxrgl spinal canal narrowing. L4-L5: Broad-based disc bulge, facet hypertrophy. Moderate right and left neural foraminal narrowing. L5-S1: Disc height loss. Mild facet hypertrophy. IMPRESSION: Multilevel degenerative disc disease and facet arthrosis: Up to mild to moderate spinal canal narrowing at L3-4. Up to moderate neural foraminal narrowing at L4-5. Dictated by: Shyam Zarate M.D. on 07/17/2023 at 8:46 Approved by: Shyam Zarate M.D. on 07/17/2023 at 8:52
== END ==
LOC: MRI 15:24
PROVIDERS: Family Provider Family Medicine; PCP Family Medicine; Referring Provider Family Medicine; Visit Provider Family Medicine
DX: S46.312A Strain of muscle, fascia and tendon of triceps, left arm, initial encounter (principal); M47.22 Other spondylosis with radiculopathy, cervical region; M50.10 Cervical disc disorder with radiculopathy, unspecified cervical region; M48.02 Spinal stenosis, cervical region; S59.902A Unspecified injury of left elbow, initial encounter; M51.16 Intervertebral disc disorders with radiculopathy, lumbar region; M47.26 Other spondylosis with radiculopathy, lumbar region; M47.27 Other spondylosis with radiculopathy, lumbosacral region; M48.061 Spinal stenosis, lumbar region without neurogenic claudication; X58.XXXA Exposure to other specified factors, initial encounter
CPT/HCPCS: 72141; 72148; 73221

== ENCOUNTER 2023-08-13 14:30 | Outpatient (RCR) | payer OTHER, MEDICAID, SELFPAY ==
--- NOTE | 2023-06-19 17:44 | PT.OIE ---
Current Diagnoses Stiffness of unspecified hip, not elsewhere classified (06/19/23) Low back pain, unspecified (06/19/23) Abnormal posture (06/19/23) Past Medical History (Last Reviewed 05/30/23 @ 15:33 by Eric Walker DO) Carpal tunnel syndrome (Unknown) Chronic pain syndrome (Unknown) Chronic right shoulder pain Hx of tendinitis (~2016) Lumbar radiculopathy Neuropathic pain Primary insomnia (03/13/16) Shoulder pain (2010) Type 2 diabetes mellitus without complication, without long-term current use of insulin (12/15/15) Uncomplicated opioid dependence (03/06/17) Uncomplicated opioid dependence Past Surgical History (Last Reviewed 05/30/23 @ 15:33 by Eric Walker DO) History of hernia repair (06/07/17) Hx of hernia repair (2005) Visit Care Team Role Provider Type Ulysses Meier MD Attending Provider Physician Family Provider Primary Care Provider Referring Provider Specialty: [facility] Obstetrics Address: [address] [place] [address] Email: [email or web address] Physical Therapy Initial Evaluation PT-OP-A Visit Information Start: 06/15/23 19:09 Freq: Status: Active Protocol: Document 06/19/23 13:01 LRN (Rec: 06/19/23 13:51 LRN [id number]) Out-Patient Physical Therapy Visit Information Visit Information Visit Type Initial Evaluation Visit Start Time 13:01 Visit Stop Time 13:49 Visit Number 05/15 Evaluation Information Evaluation Date 06/19/23 Precautions Precautions Diabetes II, Dizziness if stands up to fast and when looking up, depression not controlled by meds, chronic back & neck pain. PT-OP-B Current Condition Start: 06/15/23 19:09 Freq: Status: Active Protocol: Document 06/19/23 13:01 LRN (Rec: 06/19/23 13:51 LRN [id number]) Current Condition History of Current Condition Onset Date 2 yrs ago Current Complaints Extreme low back pain with walking, dull constant pain. History of Current Condition Pt has had worsening back pain for past 2 yrs and now is doing therapy before imaging can be done. Complaining of torn muscle in L shoulder ( pain in forearm). LBP is constant at 4/10 and after walking increases to 9/10. Prior Treatments and Tests X-rays of neck, shoulder, back (03/23/2023): L/S showed Mild degenerative changes and transitional anatomy with lumbarization of the S1 vertebral body. Developmental History Developmental History Herniated LB from tossing 50# bags by self for 2 days in a twisting motion, resulting in his becoming disabled. Treatment Goals Patient/Caregiver Goals Pt goals: Decrease the LBP. Be able to walk around without ending up screaming in pain . Pain level after walking is 9/10. HEP. 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 Current Functional Impairments (Reported) Functional Limitations- ADL's On disability for 15 years. Independent but slow with ADLs . Personal Factors Other Personal Factors That May Effect Dizziness if stands up to fast Therapy/Recovery and when looking up, depression not controlled by meds, his belief that he has a recent L shoulder muscle tear , chronic back & neck pain, Diabetes II, PT-OP-C Subjective Start: 06/15/23 19:09 Freq: Status: Active Protocol: Document 06/19/23 13:01 LRN (Rec: 06/19/23 13:51 LRN [id number]) Patient Questionnaires Oswestry Low Back Index Oswestry Score 50/100 Oswestry Impairment 40 to 59% Impaired (Score 40- 59) PT-OP-H Neuro Start: 06/15/23 19:09 Freq: Status: Active Protocol: Document 06/19/23 13:01 LRN (Rec: 06/19/23 13:51 LRN [id number]) Sensation Evaluation Gross Sensation Gross Sensation WNL Deep Tendon Reflex & Clonus Assessment Deep Tendon Reflex Right Achilles Deep Tendon Reflex 1+ Diminished Left Achilles Deep Tendon Reflex 2+ Normal Bilateral Patellar Deep Tendon Reflex 2+ Normal PT-OP-J Posture/Palpation/Skin Start: 06/15/23 19:09 Freq: Status: Active Protocol: Document 06/19/23 13:01 LRN (Rec: 06/19/23 13:51 LRN [id number]) Posture Evaluation Position Standing Head/C-Spine Posture Forward Head Pelvis Posture Anteriorly Tilted Weight Distribution Weight Shifted Left Hip Posture (L) Externally Rotated,(R) Externally Rotated Comments Posture Comments Reverse curvature of upper T/S and increased curvature of lower T/S, C-curve of spine with apex on left at ~T8-T9. Palpation Assessment Location L UT Palpation Location L UT Palpation Findings Soft Tissue Tightness Anterior hips Palpation Location ASIS's and lateral groin ( reported in area of repaired hernia) Palpation Findings Tenderness Low Back Palpation Location R QL and across entire LB at sacral level Palpation Findings Muscle Guarding,Tenderness PT-OP-K Range of Motion Start: 06/15/23 19:09 Freq: Status: Active Protocol: Document 06/19/23 13:01 LRN (Rec: 06/19/23 13:51 LRN [id number]) Lumbar Spine Range of Motion Lumbar Spine Active Degrees Testing Position Standing Flexion 50 Extension 3 Rotation Left 10 Rotation Right 20 Lateral Flexion Left 5 Lateral Flexion Right 3 ROM Limitations Pain Comments Trunk AROM: Flexion is 15 deg ?s with 10 deg?s hip flexion, Trunk extension is 3 deg?s with 0 deg?s hip extension. Hip Goniometric Range of Motion Hip Right Passive Hip ROM WFL No Testing Position Supine Flexion w/Knee Flexed 50 Straight Leg Raise 40 Internal Rotation 10 External Rotation 20 Comments Hip flex PROM achieved moving slowly into the motion. Left Passive Hip ROM WFL No Testing Position Supine Flexion w/Knee Flexed 90 Straight Leg Raise 55 Internal Rotation 0 External Rotation 40 Comments Hip flex PROM achieved moving slowly into the motion. PT-OP-L Special Tests Start: 06/15/23 19:09 Freq: Status: Active Protocol: Document 06/19/23 13:01 LRN (Rec: 06/19/23 13:51 LRN [id number]) Special Tests Lumbar Spine Special Tests Solis Test Results + bilaterally Straight Leg Raise Test Results + bilaterally Comments 40 deg's right, 55 deg's left Slump Test Results + for aditya lower leg pain onset Comments + LE neural tension Vertical Spine Loading Test Results negative, no pain in LB elicited PT-OP-M Strength Start: 06/15/23 19:09 Freq: Status: Active Protocol: Document 06/19/23 13:01 LRN (Rec: 06/19/23 13:51 LRN [id number]) Hip Strength Hip Manual Muscle Testing Right External Rotation 4+ Good+ Internal Rotation 3 Fair Left External Rotation 4+ Good+ Internal Rotation 4- Good- PT-OP-Q Treatments Start: 06/15/23 19:09 Freq: Status: Active Protocol: Document 06/19/23 13:01 LRN (Rec: 06/19/23 13:51 LRN [id number]) Self-Care/Home Management Treatment Education Other Education Discussed results of evaluation, goals, and plan of care (POC). Pt agreeable to goals and POC. Activities Self-Care/Home Management Activities Briefly I/S pt in sitting hip IR stretching both passively and actively. PT-OP-T Assessment and Plan Start: 06/15/23 19:09 Freq: Status: Active Protocol: Document 06/19/23 13:01 LRN (Rec: 06/19/23 13:51 LRN [id number]) Physical Therapy Assessment Rehab Potential Rehabilitation Potential Fair Evaluation Complexity Number of Personal Factors/Comorbidities 3 or More Number of Body Systems Impaired 4 or More Clinical Presentation at Evaluation Evolving Impairments Impairments Activity Tolerance,Gait,Pain, Posture,ROM,Soft Tissue Mobility,Strength,Transfers Goals Three Impairment LBP constant at 4/10, after walking 9/10 Short Term Goal (STG) Pt will be educated in use of cryotherapy and heat for self care pain management. STG Duration 2 visit-06/29/23 Stock Grader Goal (LTG) Be able to walk around without ending up screaming in pain . Pain level after walking is 9/10. LTG Duration 9 visits - 08/28/23 Two Impairment Decreased trunk and hip mobility causing LBP. Impairment Trunk AROM standing (in deg's) : Flex 50; ext 3; rot 10 L, 20 R; SB 5 L, 3 R. Hip PROM supine (in deg's): ER 40 L, 20 R; IR 0 L, 10 R; SLR 55 L, 40 R; KTC (moving slowly into flexion) 90 L, 50 R Short Term Goal (STG) Improve hip IR mobility to 10- 15 deg's. STG Duration 4 visits-07/13/23 Group Home Goal (LTG) Improve hip mobility to decrease LBP. LTG Duration 9 visits - 08/28/23 One Impairment Pt lacks appropriate self care HEP Short Term Goal (STG) Pt will be educated in log roll transfer if he is lying supine in bed to sleep, and educated in hip hinging for sit<>stand transfers. STG Duration 3 visits - 07/06/23 Stock Grader Goal (LTG) Pt will be educated in HEP of LB and hip ROM and strengthening exercises. LTG Duration 9 visits - 08/28/23 Assessment Summary Assessment Pt is a 53 yo male who presents with extremely limited hip and trunk mobility and probable mechanical changes in the low back resulting in LBP that functionally hinders his ability to walk due to pain. He has multiple pain issues ( neck and shoulders) and other comorbidities, that is expected to hinder his progress. He is allow 9 visits under his insurance ( including the evaluation); therefore the pt plans to only attend 8 treatment sessions. Pt had low tolerance to assessments in supine due to worsening LBP; therefore strength testing for the trunk and hips was deferred, except for hip rotation testing in sitting. The pt will benefit from skilled physical therapy to work towards achieving the above stated goals. He would benefit from a core strengthening program, but due to his limited insurance benefits it is doubtful the pt will want to continue further therapy beyond his 8 treatment visits. but with walking mustWB more on RLE. Physical Therapy Plan Frequency and Duration Frequency of Treatment 2x/Week Duration of treatment (weeks) 10 Plan of Care Start Date 06/19/23 Plan of Care End Date 08/28/23 Therapeutic Interventions Therapeutic Interventions Home Exercise Program,Joint Mobilizations,Manual Therapy, Neuromuscular Re-education, Patient/Caregiver Education, Self-Care/Home Management,Soft Tissue Mobilization, Therapeutic Activities, Therapeutic Exercises Modalities Cold Pack/Ice Massage,Electric Stimulation,Hot Packs Next Visit Focus/Plan Next Note Type Treatment Note Next Visit Plan (Caution: R shoulder possible ms tear.) Next: Hip and trunk strength assessment and hip AB ROM. HEP of hip stretches (flex, ext, ER/IR) that he can tolerate, and core stabilization. POC: LBP Rehab. THER EX: T/ S mob to minimize his reverse curvature and improve lower T/ S positioning, Lumbar and pelvic mobility to decrease lordosis and anterior Pelvic tilt, and core stab. EDUCATION: Nighttime positioning and Log roll bed mobility transfer. Hip hinging, body mechanics training, posture training in sit and stand. STM of low back/hips. HEP: low back and hip stretches. STM: T/S mob.
--- NOTE | 2023-06-25 16:55 | PT.OTN ---
Current Diagnoses Stiffness of unspecified hip, not elsewhere classified (06/25/23) Low back pain, unspecified (06/25/23) Abnormal posture (06/25/23) Physical Therapy Treatment Note PT-OP-A Visit Information Start: 06/15/23 19:09 Freq: Status: Active Protocol: Document 06/25/23 11:12 AB (Rec: 06/25/23 16:55 AB [id number]) Out-Patient Physical Therapy Visit Information Visit Information Visit Type Treatment Note Visit Note Access [email or web address] Visit Start Time 14:32 Visit Stop Time 15:14 Visit Number 06/15 Evaluation Information Evaluation Date 06/19/23 Precautions Precautions Diabetes II, Dizziness if stands up to fast and when looking up, depression not controlled by meds, chronic back & neck pain. PT-OP-B Current Condition Start: 06/15/23 19:09 Freq: Status: Active Protocol: Document 06/19/23 13:01 LRN (Rec: 06/19/23 13:51 LRN [id number]) Current Condition History of Current Condition Onset Date 2 yrs ago Current Complaints Extreme low back pain with walking, dull constant pain. History of Current Condition Pt has had worsening back pain for past 2 yrs and now is doing therapy before imaging can be done. Complaining of torn muscle in L shoulder ( pain in forearm). LBP is constant at 4/10 and after walking increases to 9/10. Prior Treatments and Tests X-rays of neck, shoulder, back (03/23/2023): L/S showed Mild degenerative changes and transitional anatomy with lumbarization of the S1 vertebral body. Developmental History Developmental History Herniated LB from tossing 50# bags by self for 2 days in a twisting motion, resulting in his becoming disabled. Treatment Goals Patient/Caregiver Goals Pt goals: Decrease the LBP. Be able to walk around without ending up screaming in pain . Pain level after walking is 9/10. HEP. 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 Current Functional Impairments (Reported) Functional Limitations- ADL's On disability for 15 years. Independent but slow with ADLs . Personal Factors Other Personal Factors That May Effect Dizziness if stands up to fast Therapy/Recovery and when looking up, depression not controlled by meds, his belief that he has a recent L shoulder muscle tear , chronic back & neck pain, Diabetes II, PT-OP-C Subjective Start: 06/15/23 19:09 Freq: Status: Active Protocol: Document 06/25/23 11:12 AB (Rec: 06/25/23 16:55 AB [id number]) OP-PT Subjective Patient Comments Patient Comments Patient reports he is about the same. Patient reports he just got up about a half hour ago, pain is a dull throb. PT-OP-H Neuro Start: 06/15/23 19:09 Freq: Status: Active Protocol: Document 06/19/23 13:01 LRN (Rec: 06/19/23 13:51 LRN [id number]) Sensation Evaluation Gross Sensation Gross Sensation WNL Deep Tendon Reflex & Clonus Assessment Deep Tendon Reflex Right Achilles Deep Tendon Reflex 1+ Diminished Left Achilles Deep Tendon Reflex 2+ Normal Bilateral Patellar Deep Tendon Reflex 2+ Normal PT-OP-J Posture/Palpation/Skin Start: 06/15/23 19:09 Freq: Status: Active Protocol: Document 06/19/23 13:01 LRN (Rec: 06/19/23 13:51 LRN [id number]) Posture Evaluation Position Standing Head/C-Spine Posture Forward Head Pelvis Posture Anteriorly Tilted Weight Distribution Weight Shifted Left Hip Posture (L) Externally Rotated,(R) Externally Rotated Comments Posture Comments Reverse curvature of upper T/S and increased curvature of lower T/S, C-curve of spine with apex on left at ~T8-T9. Palpation Assessment Location L UT Palpation Location L UT Palpation Findings Soft Tissue Tightness Anterior hips Palpation Location ASIS's and lateral groin ( reported in area of repaired hernia) Palpation Findings Tenderness Low Back Palpation Location R QL and across entire LB at sacral level Palpation Findings Muscle Guarding,Tenderness PT-OP-K Range of Motion Start: 06/15/23 19:09 Freq: Status: Active Protocol: Document 06/19/23 13:01 LRN (Rec: 06/19/23 13:51 LRN [id number]) Lumbar Spine Range of Motion Lumbar Spine Active Degrees Testing Position Standing Flexion 50 Extension 3 Rotation Left 10 Rotation Right 20 Lateral Flexion Left 5 Lateral Flexion Right 3 ROM Limitations Pain Comments Trunk AROM: Flexion is 15 deg ?s with 10 deg?s hip flexion, Trunk extension is 3 deg?s with 0 deg?s hip extension. Hip Goniometric Range of Motion Hip Right Passive Hip ROM WFL No Testing Position Supine Flexion w/Knee Flexed 50 Straight Leg Raise 40 Internal Rotation 10 External Rotation 20 Comments Hip flex PROM achieved moving slowly into the motion. Left Passive Hip ROM WFL No Testing Position Supine Flexion w/Knee Flexed 90 Straight Leg Raise 55 Internal Rotation 0 External Rotation 40 Comments Hip flex PROM achieved moving slowly into the motion. PT-OP-L Special Tests Start: 06/15/23 19:09 Freq: Status: Active Protocol: Document 06/19/23 13:01 LRN (Rec: 06/19/23 13:51 LRN [id number]) Special Tests Lumbar Spine Special Tests Solis Test Results + bilaterally Straight Leg Raise Test Results + bilaterally Comments 40 deg's right, 55 deg's left Slump Test Results + for aditya lower leg pain onset Comments + LE neural tension Vertical Spine Loading Test Results negative, no pain in LB elicited PT-OP-M Strength Start: 06/15/23 19:09 Freq: Status: Active Protocol: Document 06/19/23 13:01 LRN (Rec: 06/19/23 13:51 LRN [id number]) Hip Strength Hip Manual Muscle Testing Right External Rotation 4+ Good+ Internal Rotation 3 Fair Left External Rotation 4+ Good+ Internal Rotation 4- Good- PT-OP-Q Treatments Start: 06/15/23 19:09 Freq: Status: Active Protocol: Document 06/25/23 11:12 AB (Rec: 06/25/23 16:55 AB [id number]) Therapeutic Exercises Supine Exercises Solis stretch Supine Exercise Name Initiated on right, unable to position LE to mat level with left kneetoches Reps/Minutes 1 attempt Standing Exercises sit to stand with band Resistance light blue level one Reps/Minutes 2X10 from 21 inch seat height Comments PT ed self tactile cues for hip hinge, to avoid excessive toe out, monpain standing hip extension Standing Exercise Name leaning on mat at counter height Side bilateral Reps/Minutes X10 X 2 each LE Comments verbal and visual cues Manual Therapy Treatment Soft Tissue Mobilization bilateral glute/piriformis Mobilization Type Cross-Friction,Rolling Intensity/Depth Moderate Body Position Sidelying Comments Monitored for pain valery STM to hip flexors Body Location at groin, bilateral LE Mobilization Type Cross-Friction,Rolling Intensity/Depth Moderate Body Position Hooklying Comments Monitored for pain valery Manual Techniques contract relax into hip IR bilat Type PROM into IR Body Location hip into IR Body Position Sitting Reps/Duration 60 seconds X3 each LE Comments Gareth for pain Self-Care/Home Management Treatment Activities Self-Care/Home Management Activities HEP: sit to stand with band, seated hip abd with band/ activation, hip extension with upper body on counter. PT-OP-T Assessment and Plan Start: 06/15/23 19:09 Freq: Status: Active Protocol: Document 06/25/23 11:12 AB (Rec: 06/25/23 16:55 AB [id number]) Physical Therapy Assessment Goals Three Impairment LBP constant at 4/10, after walking 910 Short Term Goal (STG) Pt will be educated in use of cryotherapy and heat for self care pain management. STG Duration 2 visit-06/29/23 [facility] Goal (LTG) Be able to walk around without ending up screaming in pain . Pain level after walking is 9/10. LTG Duration 9 visits - 08/28/23 Two Impairment Decreased trunk and hip mobility causing LBP. Impairment Trunk AROM standing (in deg's) : Flex 50; ext 3; rot 10 L, 20 R; SB 5 L, 3 R. Hip PROM supine (in deg's): ER 40 L, 20 R; IR 0 L, 10 R; SLR 55 L, 40 R; KTC (moving slowly into flexion) 90 L, 50 R Short Term Goal (STG) Improve hip IR mobility to 10- 15 deg's. STG Duration 4 visits-07/13/23 [facility] Goal (LTG) Improve hip mobility to decrease LBP. LTG Duration 9 visits - 08/28/23 One Impairment Pt lacks appropriate self care HEP Short Term Goal (STG) Pt will be educated in log roll transfer if he is lying supine in bed to sleep, and educated in hip hinging for sit<>stand transfers. STG Duration 3 visits - 07/06/23 [facility] Goal (LTG) Pt will be educated in HEP of LB and hip ROM and strengthening exercises. LTG Duration 9 visits - 08/28/23 Assessment Summary Assessment José into session with glute med strength 4/5 but excessive hip flexor compensation, and stiffness impacting measurement, anterior pelvic tilt with transition from hooklying to supine, increased stiffness bilateral piriformis and no trailing limb during ambulation. Able to perform sit to stand with hip hinge and reports of no increased pain during session, with decreased excessive toeing out. Decreased to to hip flexor stretch, but able to perform hip extension, resting on counter height mat with Upper body. Physical Therapy Plan Frequency and Duration Frequency of Treatment 2x/Week Duration of treatment (weeks) 10 Plan of Care Start Date 06/19/23 Plan of Care End Date 08/28/23 Next Visit Focus/Plan Next Note Type Treatment Note Next Visit Plan (Caution: R shoulder possible ms tear.) Next: Hip (IR/ER/ ext) and trunk (ext) strength assessment and hip AB ROM. HEP of hip stretches (flex, ext, ER/IR) that he can tolerate, and core stabilization. POC: LBP Rehab. THER EX: T/ S mob to minimize his reverse curvature and improve lower T/ S positioning, Lumbar and pelvic mobility to decrease lordosis and anterior Pelvic tilt, and core stab. EDUCATION: Nighttime positioning and Log roll bed mobility transfer. Hip hinging, body mechanics training, posture training in sit and stand. STM of low back/hips. HEP: low back and hip stretches. STM: T/S mob. Possibly next visit retro stepping, abdomnal bracing with heel slide.
--- NOTE | 2023-07-02 15:34 | PT.OTN ---
Current Diagnoses Stiffness of unspecified hip, not elsewhere classified (07/02/23) Low back pain, unspecified (07/02/23) Abnormal posture (07/02/23) Physical Therapy Treatment Note PT-OP-A Visit Information Start: 06/15/23 19:09 Freq: Status: Active Protocol: Document 07/02/23 14:32 LRN (Rec: 07/02/23 15:34 LRN [id number]) Out-Patient Physical Therapy Visit Information Visit Information Visit Type Treatment Note Visit Start Time 14:32 Visit Stop Time 15:15 Visit Number 3/ Evaluation Information Evaluation Date 06/19/23 Precautions Precautions Diabetes II, Dizziness if stands up to fast and when looking up, depression not controlled by meds, chronic back & neck pain. PT-OP-B Current Condition Start: 06/15/23 19:09 Freq: Status: Active Protocol: Document 06/19/23 13:01 LRN (Rec: 06/19/23 13:51 LRN [id number]) Current Condition History of Current Condition Onset Date 2 yrs ago Current Complaints Extreme low back pain with walking, dull constant pain. History of Current Condition Pt has had worsening back pain for past 2 yrs and now is doing therapy before imaging can be done. Complaining of torn muscle in L shoulder ( pain in forearm). LBP is constant at 4/10 and after walking increases to 9/10. Prior Treatments and Tests X-rays of neck, shoulder, back (03/23/2023): L/S showed Mild degenerative changes and transitional anatomy with lumbarization of the S1 vertebral body. Developmental History Developmental History Herniated LB from tossing 50# bags by self for 2 days in a twisting motion, resulting in his becoming disabled. Treatment Goals Patient/Caregiver Goals Pt goals: Decrease the LBP. Be able to walk around without ending up screaming in pain . Pain level after walking is 9/10. HEP. 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 Current Functional Impairments (Reported) Functional Limitations- ADL's On disability for 15 years. Independent but slow with ADLs . Personal Factors Other Personal Factors That May Effect Dizziness if stands up to fast Therapy/Recovery and when looking up, depression not controlled by meds, his belief that he has a recent L shoulder muscle tear , chronic back & neck pain, Diabetes II, PT-OP-C Subjective Start: 06/15/23 19:09 Freq: Status: Active Protocol: Document 07/02/23 14:32 LRN (Rec: 07/02/23 15:34 LRN [id number]) OP-PT Subjective Patient Comments Patient Comments A couple days of doing band ex 's might have helped. Came home from grocery shopping ( [employer]) and the back didn't hurt as bad. PT-OP-H Neuro Start: 06/15/23 19:09 Freq: Status: Active Protocol: Document 06/19/23 13:01 LRN (Rec: 06/19/23 13:51 LRN [id number]) Sensation Evaluation Gross Sensation Gross Sensation WNL Deep Tendon Reflex & Clonus Assessment Deep Tendon Reflex Right Achilles Deep Tendon Reflex 1+ Diminished Left Achilles Deep Tendon Reflex 2+ Normal Bilateral Patellar Deep Tendon Reflex 2+ Normal PT-OP-J Posture/Palpation/Skin Start: 06/15/23 19:09 Freq: Status: Active Protocol: Document 06/19/23 13:01 LRN (Rec: 06/19/23 13:51 LRN [id number]) Posture Evaluation Position Standing Head/C-Spine Posture Forward Head Pelvis Posture Anteriorly Tilted Weight Distribution Weight Shifted Left Hip Posture (L) Externally Rotated,(R) Externally Rotated Comments Posture Comments Reverse curvature of upper T/S and increased curvature of lower T/S, C-curve of spine with apex on left at ~T8-T9. Palpation Assessment Location L UT Palpation Location L UT Palpation Findings Soft Tissue Tightness Anterior hips Palpation Location ASIS's and lateral groin ( reported in area of repaired hernia) Palpation Findings Tenderness Low Back Palpation Location R QL and across entire LB at sacral level Palpation Findings Muscle Guarding,Tenderness PT-OP-K Range of Motion Start: 06/15/23 19:09 Freq: Status: Active Protocol: Document 06/19/23 13:01 LRN (Rec: 06/19/23 13:51 LRN [id number]) Lumbar Spine Range of Motion Lumbar Spine Active Degrees Testing Position Standing Flexion 50 Extension 3 Rotation Left 10 Rotation Right 20 Lateral Flexion Left 5 Lateral Flexion Right 3 ROM Limitations Pain Comments Trunk AROM: Flexion is 15 deg ?s with 10 deg?s hip flexion, Trunk extension is 3 deg?s with 0 deg?s hip extension. Hip Goniometric Range of Motion Hip Right Passive Hip ROM WFL No Testing Position Supine Flexion w/Knee Flexed 50 Straight Leg Raise 40 Internal Rotation 10 External Rotation 20 Comments Hip flex PROM achieved moving slowly into the motion. Left Passive Hip ROM WFL No Testing Position Supine Flexion w/Knee Flexed 90 Straight Leg Raise 55 Internal Rotation 0 External Rotation 40 Comments Hip flex PROM achieved moving slowly into the motion. PT-OP-L Special Tests Start: 06/15/23 19:09 Freq: Status: Active Protocol: Document 06/19/23 13:01 LRN (Rec: 06/19/23 13:51 LRN [id number]) Special Tests Lumbar Spine Special Tests Solis Test Results + bilaterally Straight Leg Raise Test Results + bilaterally Comments 40 deg's right, 55 deg's left Slump Test Results + for aditya lower leg pain onset Comments + LE neural tension Vertical Spine Loading Test Results negative, no pain in LB elicited PT-OP-M Strength Start: 06/15/23 19:09 Freq: Status: Active Protocol: Document 06/19/23 13:01 LRN (Rec: 06/19/23 13:51 LRN [id number]) Hip Strength Hip Manual Muscle Testing Right External Rotation 4+ Good+ Internal Rotation 3 Fair Left External Rotation 4+ Good+ Internal Rotation 4- Good- PT-OP-Q Treatments Start: 06/15/23 19:09 Freq: Status: Active Protocol: Document 07/02/23 14:32 LRN (Rec: 07/02/23 15:34 LRN [id number]) Therapeutic Exercises Supine Exercises SL BKFO stretch Supine Exercise Name SL BKFO stretch Side bilateral Equipment Used Pillow to support thigh in stretch position. Reps/Minutes 60 SH x 2 Comments Extra time to determine max tolerated stretch Hip AD stretch Supine Exercise Name SL Hip Adductor stretch (opp knee flexed) Side bilateral Reps/Minutes 60 SH x 2 Comments Extra time to determine max tolerated stretch Sitting Exercises Resisted BKFO Sitting Exercise Name Resisted BKFO Side bilateral Equipment Used Lev1 TB Reps/Minutes 20x Therapeutic Activity Therapeutic Activity Log roll transfer Name Log roll transfer sit<>supine Reps/Minutes 5' Comments Pt needed training/education on core stabilization while transferring and to use UE's to de-accelerate lying down process. Manual Therapy Treatment Soft Tissue Mobilization Illiopsoas approximation Body Location R Iliopsoas: L/S and femoral Mobilization Type Sustained Pressure Intensity/Depth Moderate Comments Mild relaxation. Pt had pain with passive KTC stretch afterwards. Cues for best breathing practice with sit<>stand reduces R anterior hip pain. Hip flexors Body Location Hip flexor at ASIS Mobilization Type Trigger Point Release Intensity/Depth Moderate Body Position Supine Comments No pain with passive KTC stretch afterwards for 2 reps, then return to pain. Neuro Re-Education Treatment Coordination Activities Hip hinging sit<>stand Details Hip hinging coordination for sit<>stand Reps/Duration 5' Comments Pt required cuing for keeping small curve in back and not flexing at upper back. PT-OP-T Assessment and Plan Start: 06/15/23 19:09 Freq: Status: Active Protocol: Document 07/02/23 14:32 LRN (Rec: 07/02/23 15:34 LRN [id number]) Physical Therapy Assessment Goals Two Impairment Decreased trunk and hip mobility causing LBP. Impairment Trunk AROM standing (in deg's) : Flex 50; ext 3; rot 10 L, 20 R; SB 5 L, 3 R. Hip PROM supine (in deg's): ER 40 L, 20 R; IR 0 L, 10 R; SLR 55 L, 40 R; KTC (moving slowly into flexion) 90 L, 50 R Short Term Goal (STG) Improve hip IR mobility to 10- 15 deg's. 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 LTG Duration 9 visits - 08/28/23 One Impairment Pt lacks appropriate self care HEP Short Term Goal (STG) Pt will be educated in log roll transfer if he is lying supine in bed to sleep, and educated in hip hinging for sit<>stand transfers. 07/02/23: Pt educated in log roll transfer and hip hinging for sit<>stand with less back pain. 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 LTG Duration 9 visits - 08/28/23 Assessment Summary Assessment 53 yo male with extremely limited hip rot/ext and trunk mobility (flex), mechanical changes to LB functionally hindering his ability to walk due to LBP. Multiple pain issues (neck and shoulders) and other comorbidities, hindering his progress. R Hip flexion is painful anteriorly w/active trP's at ASIS causing poor hip mechanics and impingement anteriorly with KTC motion. No anterior hip pain with hip hinging if exhale on flexion. Physical Therapy Plan Frequency and Duration Frequency of Treatment 2x/Week Duration of treatment (weeks) 10 Plan of Care Start Date 06/19/23 Plan of Care End Date 08/28/23 Next Visit Focus/Plan Next Note Type Treatment Note Next Visit Plan (Caution: R shoulder possible ms tear.) Next: Asssess if sup KTC stretch w/exhale makes ex possible. Hip (IR/ER/ext) and trunk (ext) strength assessment and hip AB ROM. HEP of hip stretches (flex, ext, ER/IR) that he can tolerate, and core stabilization. POC: LBP Rehab. THER EX: T/ S mob to minimize his reverse curvature and improve lower T/ S positioning, Lumbar and pelvic mobility to decrease lordosis and anterior Pelvic tilt, and core stab. EDUCATION: Nighttime positioning, body mechanics training, posture training in sit and stand. STM of low back/hips. HEP: low back and hip stretches. STM: T/S mob. Possibly next visit retro stepping, abdomnal bracing with heel slide.
--- NOTE | 2023-07-12 13:40 | PT.OTN ---
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 PT-OP-B Current Condition Start: 06/15/23 19:09 Freq: Status: Active Protocol: Document 06/19/23 13:01 LRN (Rec: 06/19/23 13:51 LRN [id number]) Current Condition History of Current Condition Onset Date 2 yrs ago Current Complaints Extreme low back pain with walking, dull constant pain. History of Current Condition Pt has had worsening back pain for past 2 yrs and now is doing therapy before imaging can be done. Complaining of torn muscle in L shoulder ( pain in forearm). LBP is constant at 4/10 and after walking increases to 9/10. Prior Treatments and Tests X-rays of neck, shoulder, back (03/23/2023): L/S showed Mild degenerative changes and transitional anatomy with lumbarization of the S1 vertebral body. Developmental History Developmental History Herniated LB from tossing 50# bags by self for 2 days in a twisting motion, resulting in his becoming disabled. Treatment Goals Patient/Caregiver Goals Pt goals: Decrease the LBP. Be able to walk around without ending up screaming in pain . Pain level after walking is 9/10. HEP. 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 Current Functional Impairments (Reported) Functional Limitations- ADL's On disability for 15 years. Independent but slow with ADLs . Personal Factors Other Personal Factors That May Effect Dizziness if stands up to fast Therapy/Recovery and when looking up, depression not controlled by meds, his belief that he has a recent L shoulder muscle tear , chronic back & neck pain, Diabetes II, PT-OP-C Subjective Start: 06/15/23 19:09 Freq: Status: Active Protocol: Document 07/12/23 12:59 SP (Rec: 07/12/23 13:51 SP [id number]) OP-PT Subjective Patient Comments Patient Comments Pt reports felt ok, not hurting after last tx. Compliant with HEP, but tried to self massage R inner thigh/ groin to lessen tension but caused pain so stopped. Forgot about using pillow support and AROM. Had a bad day yesterday, neck, arms hurt and couldnt hardly move. MRI on L side, arm/back/neck on Sunday for arm. Think L bicep rolled up after a past tx using UBE after being in sling for few weeks. He stated did the elliptical bike 2 days ago and Elliptical upright did ok 4 days ago did well. PT-OP-H Neuro Start: 06/15/23 19:09 Freq: Status: Active Protocol: Document 06/19/23 13:01 LRN (Rec: 06/19/23 13:51 LRN [id number]) Sensation Evaluation Gross Sensation Gross Sensation WNL Deep Tendon Reflex & Clonus Assessment Deep Tendon Reflex Right Achilles Deep Tendon Reflex 1+ Diminished Left Achilles Deep Tendon Reflex 2+ Normal Bilateral Patellar Deep Tendon Reflex 2+ Normal PT-OP-J Posture/Palpation/Skin Start: 06/15/23 19:09 Freq: Status: Active Protocol: Document 06/19/23 13:01 LRN (Rec: 06/19/23 13:51 LRN [id number]) Posture Evaluation Position Standing Head/C-Spine Posture Forward Head Pelvis Posture Anteriorly Tilted Weight Distribution Weight Shifted Left Hip Posture (L) Externally Rotated,(R) Externally Rotated Comments Posture Comments Reverse curvature of upper T/S and increased curvature of lower T/S, C-curve of spine with apex on left at ~T8-T9. Palpation Assessment Location L UT Palpation Location L UT Palpation Findings Soft Tissue Tightness Anterior hips Palpation Location ASIS's and lateral groin ( reported in area of repaired hernia) Palpation Findings Tenderness Low Back Palpation Location R QL and across entire LB at sacral level Palpation Findings Muscle Guarding,Tenderness PT-OP-K Range of Motion Start: 06/15/23 19:09 Freq: Status: Active Protocol: Document 06/19/23 13:01 LRN (Rec: 06/19/23 13:51 LRN [id number]) Lumbar Spine Range of Motion Lumbar Spine Active Degrees Testing Position Standing Flexion 50 Extension 3 Rotation Left 10 Rotation Right 20 Lateral Flexion Left 5 Lateral Flexion Right 3 ROM Limitations Pain Comments Trunk AROM: Flexion is 15 deg ?s with 10 deg?s hip flexion, Trunk extension is 3 deg?s with 0 deg?s hip extension. Hip Goniometric Range of Motion Hip Right Passive Hip ROM WFL No Testing Position Supine Flexion w/Knee Flexed 50 Straight Leg Raise 40 Internal Rotation 10 External Rotation 20 Comments Hip flex PROM achieved moving slowly into the motion. Left Passive Hip ROM WFL No Testing Position Supine Flexion w/Knee Flexed 90 Straight Leg Raise 55 Internal Rotation 0 External Rotation 40 Comments Hip flex PROM achieved moving slowly into the motion. PT-OP-L Special Tests Start: 06/15/23 19:09 Freq: Status: Active Protocol: Document 06/19/23 13:01 LRN (Rec: 06/19/23 13:51 LRN [id number]) Special Tests Lumbar Spine Special Tests Solis Test Results + bilaterally Straight Leg Raise Test Results + bilaterally Comments 40 deg's right, 55 deg's left Slump Test Results + for aditya lower leg pain onset Comments + LE neural tension Vertical Spine Loading Test Results negative, no pain in LB elicited PT-OP-M Strength Start: 06/15/23 19:09 Freq: Status: Active Protocol: Document 06/19/23 13:01 LRN (Rec: 06/19/23 13:51 LRN [id number]) Hip Strength Hip Manual Muscle Testing Right External Rotation 4+ Good+ Internal Rotation 3 Fair Left External Rotation 4+ Good+ Internal Rotation 4- Good- PT-OP-Q Treatments Start: 06/15/23 19:09 Freq: Status: Active Protocol: Document 07/12/23 12:59 SP (Rec: 07/12/23 13:51 SP [id number]) Cardio Equipment Recumbent Elliptical (Eventable) Duration (Minutes) 4 Resistance 3 Seat Position see 10 Other BUEs light RLE- effort cued heel press more glut/less thigh/add Therapeutic Exercises Supine Exercises lateral hip stretch Supine Exercise Name trialed lat L hip stretch ( gentle pnfree motion into ADD) Side left Equipment Used opp LE straight Reps/Minutes 20 SH Comments good gentle lat hip stretch pnfree, better Hip AD stretch Supine Exercise Name SL Hip Adductor stretch (opp knee flexed) Side bilateral Reps/Minutes 60 SH x 2 Comments L hip pain small range, pre and post manual- Hold Solis stretch Supine Exercise Name L prox stretch Equipment Used thigh supported little Reps/Minutes 20 SH Comments good response light stretch with support Sitting Exercises Resisted BKFO Sitting Exercise Name Resisted BKFO Side bilateral Resistance Lev1 TB at thighs Equipment Used mesh chair Reps/Minutes 20x Comments good form/pacing, pnfree Standing Exercises sit to stand with band Resistance light blue level one at thighs Reps/Minutes 2X10 from 18 mesh chair Comments cued TA draw in hip hinge full to sit, control last 1 standing hip extension Standing Exercise Name leaning on mat at counter height Side bilateral Resistance TB #1 Reps/Minutes X10 X 2 each LE Comments cued tall over forefoot of stance LE, TA draw in /c kick glut fac noLB arch Therapeutic Activity Therapeutic Activity Log roll transfer Name Log roll transfer sit<SL LR> supine Reps/Minutes 2 reps Comments Pt needed training/education on core stabilization while tunk righting and to use R UE to de-accelerate lying down process. Manual Therapy Treatment Soft Tissue Mobilization Illiopsoas approximation Body Location L Iliopsoas: L/S and femoral Mobilization Type Sustained Pressure Intensity/Depth Moderate Comments Mild relaxation. Improve AAROM KTC stretch afterwards. Cues for best breathing practice with sit<>stand reduces R anterior hip pain. Hip flexors Body Location L RF at ASIS & TFL Mobilization Type Strumming Intensity/Depth Moderate Body Position Supine Comments No pain with passive KTC stretch afterwards for 2 reps, then return to pain. PT-OP-T Assessment and Plan Start: 06/15/23 19:09 Freq: Status: Active Protocol: Document 07/12/23 12:59 SP (Rec: 07/12/23 13:51 SP [id number]) Physical Therapy Assessment Goals Three Impairment LBP constant at 4/10, after walking 9/10 Short Term Goal (STG) Pt will be educated in use of cryotherapy and heat for self care pain management. STG Duration 2 visit-06/29/23 Halfway Goal (LTG) Be able to walk around without ending up screaming in pain . Pain level after walking is 9/10. LTG Duration 9 visits - 08/28/23 Two Impairment Decreased trunk and hip mobility causing LBP. Impairment Trunk AROM standing (in deg's) : Flex 50; ext 3; rot 10 L, 20 R; SB 5 L, 3 R. Hip PROM supine (in deg's): ER 40 L, 20 R; IR 0 L, 10 R; SLR 55 L, 40 R; KTC (moving slowly into flexion) 90 L, 50 R Short Term Goal (STG) Improve hip IR mobility to 10- 15 deg's. STG Duration 4 visits-07/13/23 Halfway Goal (LTG) Improve hip mobility to decrease LBP. LTG Duration 9 visits - 08/28/23 One Impairment Pt lacks appropriate self care HEP Short Term Goal (STG) Pt will be educated in log roll transfer if he is lying supine in bed to sleep, and educated in hip hinging for sit<>stand transfers. 07/02/23: Pt educated in log roll transfer and hip hinging for sit<>stand with less back pain. STG Duration 3 visits - 07/06/23 (: MET GOAL) Dyed Raw Stock Blower Feeder Goal (LTG) Pt will be educated in HEP of LB and hip ROM and strengthening exercises. LTG Duration 9 visits - 08/28/23 Assessment Summary Assessment Pt reported decreased L anterior thigh pain post manual stretching and added resistance to hip ext and bike review has good response at home and reported end PT, less L hip pain. Physical Therapy Plan Frequency and Duration Frequency of Treatment 2x/Week Duration of treatment (weeks) 10 Plan of Care Start Date 06/19/23 Plan of Care End Date 08/28/23 Therapeutic Interventions Therapeutic Interventions Home Exercise Program,Joint Mobilizations,Manual Therapy, Neuromuscular Re-education, Patient/Caregiver Education, Self-Care/Home Management,Soft Tissue Mobilization, Therapeutic Activities, Therapeutic Exercises Modalities Cold Pack/Ice Massage,Electric Stimulation,Hot Packs Next Visit Focus/Plan Next Note Type Treatment Note Next Visit Plan (Caution: R shoulder possible ms tear.) Next: Asssess if sup KTC stretch w/exhale makes ex possible. Hip (IR/ER/ext) and trunk (ext) strength assessment and hip AB ROM. HEP of hip stretches (flex, ext, ER/IR) that he can tolerate, and core stabilization. POC: LBP Rehab. THER EX: T/ S mob to minimize his reverse curvature and improve lower T/ S positioning, Lumbar and pelvic mobility to decrease lordosis and anterior Pelvic tilt, and core stab. EDUCATION: Nighttime positioning, body mechanics training, posture training in sit and stand. STM of low back/hips. HEP: low back and hip stretches. STM: T/S mob. Possibly next visit retro stepping, abdomnal bracing with heel slide.
--- NOTE | 2023-07-16 15:41 | PT.OTN ---
Current Diagnoses Stiffness of unspecified hip, not elsewhere classified (07/16/23) Low back pain, unspecified (07/16/23) Abnormal posture (07/16/23) Physical Therapy Treatment Note PT-OP-A Visit Information Start: 06/15/23 19:09 Freq: Status: Active Protocol: Document 07/16/23 14:36 LRN (Rec: 07/16/23 15:40 LRN [id number]) Out-Patient Physical Therapy Visit Information Visit Information Visit Type Treatment Note Visit Start Time 14:36 Visit Stop Time 15:16 Visit Number 09/12 Evaluation Information Evaluation Date 06/19/23 Precautions Precautions Diabetes II, Dizziness if stands up to fast and when looking up, depression not controlled by meds, chronic back & neck pain. PT-OP-B Current Condition Start: 06/15/23 19:09 Freq: Status: Active Protocol: Document 06/19/23 13:01 LRN (Rec: 06/19/23 13:51 LRN [id number]) Current Condition History of Current Condition Onset Date 2 yrs ago Current Complaints Extreme low back pain with walking, dull constant pain. History of Current Condition Pt has had worsening back pain for past 2 yrs and now is doing therapy before imaging can be done. Complaining of torn muscle in L shoulder ( pain in forearm). LBP is constant at 4/10 and after walking increases to 9/10. Prior Treatments and Tests X-rays of neck, shoulder, back (03/23/2023): L/S showed Mild degenerative changes and transitional anatomy with lumbarization of the S1 vertebral body. Developmental History Developmental History Herniated LB from tossing 50# bags by self for 2 days in a twisting motion, resulting in his becoming disabled. Treatment Goals Patient/Caregiver Goals Pt goals: Decrease the LBP. Be able to walk around without ending up screaming in pain . Pain level after walking is 9/10. HEP. 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 Current Functional Impairments (Reported) Functional Limitations- ADL's On disability for 15 years. Independent but slow with ADLs . Personal Factors Other Personal Factors That May Effect Dizziness if stands up to fast Therapy/Recovery and when looking up, depression not controlled by meds, his belief that he has a recent L shoulder muscle tear , chronic back & neck pain, Diabetes II, PT-OP-C Subjective Start: 06/15/23 19:09 Freq: Status: Active Protocol: Document 07/16/23 14:36 LRN (Rec: 07/16/23 15:40 LRN [id number]) OP-PT Subjective Patient Comments Patient Comments Pain in bilateral groin is worse since last treatment. States he doesn't know why, because he does the same here as at home. Now just using R arm with home biodex. Hip pain rated 7-8/10. After therapy pt reports pain is 4-5 /10. PT-OP-H Neuro Start: 06/15/23 19:09 Freq: Status: Active Protocol: Document 06/19/23 13:01 LRN (Rec: 06/19/23 13:51 LRN [id number]) Sensation Evaluation Gross Sensation Gross Sensation WNL Deep Tendon Reflex & Clonus Assessment Deep Tendon Reflex Right Achilles Deep Tendon Reflex 1+ Diminished Left Achilles Deep Tendon Reflex 2+ Normal Bilateral Patellar Deep Tendon Reflex 2+ Normal PT-OP-J Posture/Palpation/Skin Start: 06/15/23 19:09 Freq: Status: Active Protocol: Document 06/19/23 13:01 LRN (Rec: 06/19/23 13:51 LRN [id number]) Posture Evaluation Position Standing Head/C-Spine Posture Forward Head Pelvis Posture Anteriorly Tilted Weight Distribution Weight Shifted Left Hip Posture (L) Externally Rotated,(R) Externally Rotated Comments Posture Comments Reverse curvature of upper T/S and increased curvature of lower T/S, C-curve of spine with apex on left at ~T8-T9. Palpation Assessment Location L UT Palpation Location L UT Palpation Findings Soft Tissue Tightness Anterior hips Palpation Location ASIS's and lateral groin ( reported in area of repaired hernia) Palpation Findings Tenderness Low Back Palpation Location R QL and across entire LB at sacral level Palpation Findings Muscle Guarding,Tenderness PT-OP-K Range of Motion Start: 06/15/23 19:09 Freq: Status: Active Protocol: Document 06/19/23 13:01 LRN (Rec: 06/19/23 13:51 LRN [id number]) Lumbar Spine Range of Motion Lumbar Spine Active Degrees Testing Position Standing Flexion 50 Extension 3 Rotation Left 10 Rotation Right 20 Lateral Flexion Left 5 Lateral Flexion Right 3 ROM Limitations Pain Comments Trunk AROM: Flexion is 15 deg ?s with 10 deg?s hip flexion, Trunk extension is 3 deg?s with 0 deg?s hip extension. Hip Goniometric Range of Motion Hip Right Passive Hip ROM WFL No Testing Position Supine Flexion w/Knee Flexed 50 Straight Leg Raise 40 Internal Rotation 10 External Rotation 20 Comments Hip flex PROM achieved moving slowly into the motion. Left Passive Hip ROM WFL No Testing Position Supine Flexion w/Knee Flexed 90 Straight Leg Raise 55 Internal Rotation 0 External Rotation 40 Comments Hip flex PROM achieved moving slowly into the motion. PT-OP-L Special Tests Start: 06/15/23 19:09 Freq: Status: Active Protocol: Document 06/19/23 13:01 LRN (Rec: 06/19/23 13:51 LRN [id number]) Special Tests Lumbar Spine Special Tests Solis Test Results + bilaterally Straight Leg Raise Test Results + bilaterally Comments 40 deg's right, 55 deg's left Slump Test Results + for joe lower leg pain onset Comments + LE neural tension Vertical Spine Loading Test Results negative, no pain in LB elicited PT-OP-M Strength Start: 06/15/23 19:09 Freq: Status: Active Protocol: Document 06/19/23 13:01 LRN (Rec: 06/19/23 13:51 LRN [id number]) Hip Strength Hip Manual Muscle Testing Right External Rotation 4+ Good+ Internal Rotation 3 Fair Left External Rotation 4+ Good+ Internal Rotation 4- Good- PT-OP-Q Treatments Start: 06/15/23 19:09 Freq: Status: Active Protocol: Document 07/16/23 14:36 LRN (Rec: 07/16/23 15:40 LRN [id number]) Therapeutic Exercises Supine Exercises BKFO Supine Exercise Name Joe BKFO strengthening Side bilateral Equipment Used L1 TB Reps/Minutes 10x 2 lateral hip stretch Supine Exercise Name trialed lat L hip stretch ( gentle pnfree motion into ADD) Side left Equipment Used opp LE straight Reps/Minutes 60 SH, assisted stretch Comments good gentle lat hip stretch pnfree, better SL BKFO stretch Supine Exercise Name SL BKFO stretch Side bilateral Equipment Used Pillow to support thigh in stretch position. Reps/Minutes 60 SH, asst'd stretch Comments Extra time to determine max tolerated stretch Hip AD stretch Supine Exercise Name SL Hip Adductor stretch (opp knee flexed) Side bilateral Reps/Minutes 60 SH x 2, asst'd stretch Comments L hip pain small range, pre and post manual- Hold Solis stretch Supine Exercise Name L prox stretch Equipment Used thigh supported little Reps/Minutes 20 SH Comments good response light stretch with support Sidelying Exercises TA semi-sidelye Sidelying Exercise Name TA tightening semi-sidelye Side bilateral Reps/Minutes 10x 2 Comments Much v cuing w/self hand placement on chest and abdomen Self-Care/Home Management Treatment Education Patient Education Home Exercise Program Activities Self-Care/Home Management Activities Issued & reviewed HEP: Hip stretches: ER (fig 4), IR ( Lateral hip stretch) flexors ( Solis stretch in KTC form. PT-OP-T Assessment and Plan Start: 06/15/23 19:09 Freq: Status: Active Protocol: Document 07/16/23 14:36 LRN (Rec: 07/16/23 15:40 LRN [id number]) Physical Therapy Assessment Goals Three Impairment LBP constant at 4/10, after walking 9/10 Short Term Goal (STG) Pt will be educated in use of cryotherapy and heat for self care pain management. 07/16/23: Discussed/educated pt in use of cryotherapy or MH for pain manageement, but pt stated he had tried both and neither were helpful. STG Duration 2 visit-06/29/23 (07/16/23: MET GOAL, pt choosing to do neither) Care Home Goal (LTG) Be able to walk around without ending up screaming in pain . Pain level after walking is 9/10. LTG Duration 9 visits - 08/28/23 Two Impairment Decreased trunk and hip mobility causing LBP. Impairment Trunk AROM standing (in deg's) : Flex 50; ext 3; rot 10 L, 20 R; SB 5 L, 3 R. Hip PROM supine (in deg's): ER 40 L, 20 R; IR 0 L, 10 R; SLR 55 L, 40 R; KTC (moving slowly into flexion) 90 L, 50 R Short Term Goal (STG) Improve hip IR mobility to 10- 15 deg's. STG Duration 4 visits-07/13/23 Care Home Goal (LTG) Improve hip mobility to decrease LBP. LTG Duration 9 visits - 08/28/23 One Impairment Pt lacks appropriate self care HEP Short Term Goal (STG) Pt will be educated in log roll transfer if he is lying supine in bed to sleep, and educated in hip hinging for sit<>stand transfers. 07/02/23: Pt educated in log roll transfer and hip hinging for sit<>stand with less back pain. STG Duration 3 visits - 07/06/23 (: MET GOAL) [employer] Goal (LTG) Pt will be educated in HEP of LB and hip ROM and strengthening exercises. 07/16/23: HEP: Fig 4, Lateral hip and KTC stretch ( using towel to lift leg to avoid Ilipsoas contraction. LTG Duration 9 visits - 08/28/23 progressed 07/16/23. Assessment Summary Assessment 53 yo male who presents with extremely limited hip and trunk mobility and probable mechanical changes in the low back resulting in LBP that functionally hinders his ability to walk due to pain. Progress is very slow with flare ups. Today pt's R hip mobility is worse than L, he is able to perform KTC stretch w/o groin pain if passively bringing KTC. He was not able to stabilize core with TA tightening while breathing. + response to flexibility ex's, pain reduced almost 50% from 7-8/10 to 4-5/10. Physical Therapy Plan Frequency and Duration Frequency of Treatment 2x/Week Duration of treatment (weeks) 10 Plan of Care Start Date 06/19/23 Plan of Care End Date 08/28/23 Next Visit Focus/Plan Next Note Type Treatment Note Next Visit Plan (Caution: R shoulder possible ms tear.) DC to HEP in 9 visits total; therefore plan DC in 4 visits. Next: Review HEP of hip stretches (flex, ext-KTC like Solis test stretch, & ER/IR) & TA tightening in semi- sidelye. ADD HEP: Hamstring stretch, & Hip (IR/ER/ext) and trunk (ext) strength, and hip AB ROM, that he can tolerate, and core stabilization. Possibly next visit retro stepping, abdominal bracing with heel slide. POC: LBP Rehab. THER EX: T/ S mob to minimize his reverse curvature (reverse curvature of upper T/S, increased curvature of lower T/S) and improve lower T/S positioning, Lumbar and pelvic mobility to decrease lordosis and anterior Pelvic tilt, and core stab. EDUCATION: Nighttime positioning, body mechanics training, posture training in sit and stand. STM of low back/hips. STM: T/S mob.
--- NOTE | 2023-07-23 15:37 | PT.OTN ---
Current Diagnoses Stiffness of unspecified hip, not elsewhere classified (07/23/23) Low back pain, unspecified (07/23/23) Abnormal posture (07/23/23) Physical Therapy Treatment Note PT-OP-A Visit Information Start: 06/15/23 19:09 Freq: Status: Active Protocol: Document 07/23/23 14:32 LRN (Rec: 07/23/23 15:35 LRN [id number]) Out-Patient Physical Therapy Visit Information Visit Information Visit Type Treatment Note Visit Start Time 14:32 Visit Stop Time 15:17 Visit Number 6 Evaluation Information Evaluation Date 06/19/23 Precautions Precautions Diabetes II, Dizziness if stands up to fast and when looking up, depression not controlled by meds, chronic back & neck pain. PT-OP-B Current Condition Start: 06/15/23 19:09 Freq: Status: Active Protocol: Document 06/19/23 13:01 LRN (Rec: 06/19/23 13:51 LRN [id number]) Current Condition History of Current Condition Onset Date 2 yrs ago Current Complaints Extreme low back pain with walking, dull constant pain. History of Current Condition Pt has had worsening back pain for past 2 yrs and now is doing therapy before imaging can be done. Complaining of torn muscle in L shoulder ( pain in forearm). LBP is constant at 4/10 and after walking increases to 9/10. Prior Treatments and Tests X-rays of neck, shoulder, back (03/23/2023): L/S showed Mild degenerative changes and transitional anatomy with lumbarization of the S1 vertebral body. Developmental History Developmental History Herniated LB from tossing 50# bags by self for 2 days in a twisting motion, resulting in his becoming disabled. Treatment Goals Patient/Caregiver Goals Pt goals: Decrease the LBP. Be able to walk around without ending up screaming in pain . Pain level after walking is 9/10. HEP. 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 Current Functional Impairments (Reported) Functional Limitations- ADL's On disability for 15 years. Independent but slow with ADLs . Personal Factors Other Personal Factors That May Effect Dizziness if stands up to fast Therapy/Recovery and when looking up, depression not controlled by meds, his belief that he has a recent L shoulder muscle tear , chronic back & neck pain, Diabetes II, PT-OP-C Subjective Start: 06/15/23 19:09 Freq: Status: Active Protocol: Document 07/23/23 14:32 LRN (Rec: 07/23/23 15:35 LRN [id number]) OP-PT Subjective Patient Comments Patient Comments Had discomfort in the lower abdomen from the exercises and went awar after a couple days . Feeling a little better yesterday, was up/down stairs and went to bed didn't have back issues. PT-OP-H Neuro Start: 06/15/23 19:09 Freq: Status: Active Protocol: Document 06/19/23 13:01 LRN (Rec: 06/19/23 13:51 LRN [id number]) Sensation Evaluation Gross Sensation Gross Sensation WNL Deep Tendon Reflex & Clonus Assessment Deep Tendon Reflex Right Achilles Deep Tendon Reflex 1+ Diminished Left Achilles Deep Tendon Reflex 2+ Normal Bilateral Patellar Deep Tendon Reflex 2+ Normal PT-OP-J Posture/Palpation/Skin Start: 06/15/23 19:09 Freq: Status: Active Protocol: Document 06/19/23 13:01 LRN (Rec: 06/19/23 13:51 LRN [id number]) Posture Evaluation Position Standing Head/C-Spine Posture Forward Head Pelvis Posture Anteriorly Tilted Weight Distribution Weight Shifted Left Hip Posture (L) Externally Rotated,(R) Externally Rotated Comments Posture Comments Reverse curvature of upper T/S and increased curvature of lower T/S, C-curve of spine with apex on left at ~T8-T9. Palpation Assessment Location L UT Palpation Location L UT Palpation Findings Soft Tissue Tightness Anterior hips Palpation Location ASIS's and lateral groin ( reported in area of repaired hernia) Palpation Findings Tenderness Low Back Palpation Location R QL and across entire LB at sacral level Palpation Findings Muscle Guarding,Tenderness PT-OP-K Range of Motion Start: 06/15/23 19:09 Freq: Status: Active Protocol: Document 06/19/23 13:01 LRN (Rec: 06/19/23 13:51 LRN [id number]) Lumbar Spine Range of Motion Lumbar Spine Active Degrees Testing Position Standing Flexion 50 Extension 3 Rotation Left 10 Rotation Right 20 Lateral Flexion Left 5 Lateral Flexion Right 3 ROM Limitations Pain Comments Trunk AROM: Flexion is 15 deg ?s with 10 deg?s hip flexion, Trunk extension is 3 deg?s with 0 deg?s hip extension. Hip Goniometric Range of Motion Hip Right Passive Hip ROM WFL No Testing Position Supine Flexion w/Knee Flexed 50 Straight Leg Raise 40 Internal Rotation 10 External Rotation 20 Comments Hip flex PROM achieved moving slowly into the motion. Left Passive Hip ROM WFL No Testing Position Supine Flexion w/Knee Flexed 90 Straight Leg Raise 55 Internal Rotation 0 External Rotation 40 Comments Hip flex PROM achieved moving slowly into the motion. PT-OP-L Special Tests Start: 06/15/23 19:09 Freq: Status: Active Protocol: Document 06/19/23 13:01 LRN (Rec: 06/19/23 13:51 LRN [id number]) Special Tests Lumbar Spine Special Tests Solis Test Results + bilaterally Straight Leg Raise Test Results + bilaterally Comments 40 deg's right, 55 deg's left Slump Test Results + for joe lower leg pain onset Comments + LE neural tension Vertical Spine Loading Test Results negative, no pain in LB elicited PT-OP-M Strength Start: 06/15/23 19:09 Freq: Status: Active Protocol: Document 06/19/23 13:01 LRN (Rec: 06/19/23 13:51 LRN [id number]) Hip Strength Hip Manual Muscle Testing Right External Rotation 4+ Good+ Internal Rotation 3 Fair Left External Rotation 4+ Good+ Internal Rotation 4- Good- PT-OP-Q Treatments Start: 06/15/23 19:09 Freq: Status: Active Protocol: Document 07/23/23 14:32 LRN (Rec: 07/23/23 15:35 LRN [id number]) Therapeutic Exercises Supine Exercises TA/Heel slide Supine Exercise Name TA/SL Heel slide Side bilateral Reps/Minutes x3-5 Comments Assist needed for heel slide to determine 1/2 way slide for NS stab TA/BKFO Supine Exercise Name TA/BKFO Side bilateral Reps/Minutes 10x Comments Cued for Core stab to start ( belly in) Bridge Supine Exercise Name Bridge Hip Ext strengthening Reps/Minutes 10x Comments Training/Cued for NS & Exhale w/lift and inhale with lowering Fig 4 stretch Supine Exercise Name Fig 4 stretch Side bilateral Reps/Minutes 30 SH Comments No support needed under thigh, improved tolerance to stretch BKFO Supine Exercise Name Joe BKFO strengthening Side bilateral Equipment Used L1 TB Reps/Minutes 10x 2 lateral hip stretch Supine Exercise Name Lateral Hip stretch Side left Equipment Used opp LE straight Reps/Minutes 60 SH, assisted stretch Comments good gentle lat hip stretch pnfree, better SL BKFO stretch Supine Exercise Name SL BKFO stretch Side bilateral Reps/Minutes 60 SH, asst'd stretch Comments Extra time to determine max tolerated stretch Hip AD stretch Supine Exercise Name SL Hip Adductor stretch (opp knee flexed) Side bilateral Reps/Minutes 60 SH x 2, asst'd stretch Comments L hip pain small range, pre and post manual- Hold Solis stretch Supine Exercise Name L prox stretch, R upper groin. Equipment Used thigh supported a little Reps/Minutes 20 SH Comments good response light stretch with support Sidelying Exercises TA semi-sidelye Sidelying Exercise Name TA tightening semi-sidelye Side bilateral Reps/Minutes 10x 2 Comments Much v cuing w/self hand placement on chest and abdomen Sitting Exercises Hamstring/LE n glide Sitting Exercise Name Hamstring/LE n glide Reps/Minutes 3 sets of 10 SH f/b 10 ankle pumps Comments Cuing to not stretch into pain . SL hip AD stretch Sitting Exercise Name SL Hip AD stretch Reps/Minutes 60 SH x 1 each Comments Cued to not hold breath. Hip IR strengthening Sitting Exercise Name Hip IR AROM Side bilateral Reps/Minutes 10x Comments Cuing to exhale with feet lift and inhale on return Self-Care/Home Management Treatment Education Patient Education Home Exercise Program Activities Self-Care/Home Management Activities Issued & reviewed HEP Stretches: Sup Joe BKFO, Hamstring/LE neural, SL hip AD ; Issued & reviewed HEP Strengthening: Sup TA/BKFO, TA/heel slides, (hold on and kick outs july), and Sitting hip IR. PT-OP-T Assessment and Plan Start: 06/15/23 19:09 Freq: Status: Active Protocol: Document 07/23/23 14:32 LRN (Rec: 07/23/23 15:35 LRN [id number]) Physical Therapy Assessment Goals Three Impairment LBP constant at 4/10, after walking 9/10 Short Term Goal (STG) Pt will be educated in use of cryotherapy and heat for self care pain management. 07/16/23: Discussed/educated pt in use of cryotherapy or MH for pain manageement, but pt stated he had tried both and neither were helpful. STG Duration 2 visit-06/29/23 (07/16/23: MET GOAL, pt choosing to do neither) Plastic Fabricator Goal (LTG) Be able to walk around without ending up screaming in pain . Pain level after walking is 9/10. LTG Duration 9 visits - 08/28/23 Two Impairment Decreased trunk and hip mobility causing LBP. Impairment Trunk AROM standing (in deg's) : Flex 50; ext 3; rot 10 L, 20 R; SB 5 L, 3 R. Hip PROM supine (in deg's): ER 40 L, 20 R; IR 0 L, 10 R; SLR 55 L, 40 R; KTC (moving slowly into flexion) 90 L, 50 R Short Term Goal (STG) Improve hip IR mobility to 10- 15 deg's. STG Duration 4 visits-07/13/23 Plastic Fabricator Goal (LTG) Improve hip mobility to decrease LBP. LTG Duration 9 visits - 08/28/23 One Impairment Pt lacks appropriate self care HEP Short Term Goal (STG) Pt will be educated in log roll transfer if he is lying supine in bed to sleep, and educated in hip hinging for sit<>stand transfers. 07/02/23: Pt educated in log roll transfer and hip hinging for sit<>stand with less back pain. STG Duration 3 visits - 07/06/23 (: MET GOAL) Plastic Fabricator Goal (LTG) Pt will be educated in HEP of LB and hip ROM and strengthening exercises. 07/16/23: HEP: Fig 4, Lateral hip and KTC stretch ( using towel to lift leg to avoid Ilipsoas contraction. 07/23/23: HEP Stretches: Sup Joe BKFO, Hamstring/LE neural , SL hip AD; HEP Strengthening: Sup TA/BKFO, TA/heel slides, and Sitting hip IR. LTG Duration 9 visits - 08/28/23 progressed 07/23/23. Assessment Summary Assessment 53 yo male with extremely limited hip and trunk mobility and probably mechanical changes in the low back resulting in LBP, hindering his ability to walk due to pain. Today he is not complaining much of LB/ anterior hip pain, and he apparently had a good day yesterday with improved functional mobility with stairs and ending his day without much pain. He demonstrates very poor TA/core strength, but is improving his tolerance to hip mobility ex's, not needing support under his thighs for stretching. Pt tolerated all his old and new LE stretches without c/o pain. Physical Therapy Plan Frequency and Duration Frequency of Treatment 2x/Week Duration of treatment (weeks) 10 Plan of Care Start Date 06/19/23 Plan of Care End Date 08/28/23 Next Visit Focus/Plan Next Note Type Treatment Note Next Visit Plan (Caution: R shoulder possible ms tear.) DC to a HEP in 3 visits, due to financial reasons (insurance limits). Next: review & progress TA tightening in semi-sidelye. Review issued HEP: stretches of Hamstring/LE n glide, & strengthening of Hip (IR/ER/ ext), TA BKFO & TA heel slides strengthening. Add: sitting trunk (ext) strengthening, and standing hip AB ROM, that he can tolerate, cont core stabilization with addition of 4pt TA tightening if tolerated. Possibly try retro stepping. THER EX: T/S mob to minimize his reverse curvature (reverse curvature of upper T/S, increased curvature of lower T /S) and improve lower T/S positioning, Lumbar and pelvic mobility to decrease lordosis and anterior Pelvic tilt, and core stab. EDUCATION: Nighttime positioning, body mechanics training, posture training in sit and stand. STM of low back/hips. STM: T /S mob. POC: LBP Rehab for DC to [facility].
--- NOTE | 2023-07-30 15:12 | PT.OTN ---
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 PT-OP-B Current Condition Start: 06/15/23 19:09 Freq: Status: Active Protocol: Document 06/19/23 13:01 LRN (Rec: 06/19/23 13:51 LRN [id number]) Current Condition History of Current Condition Onset Date 2 yrs ago Current Complaints Extreme low back pain with walking, dull constant pain. History of Current Condition Pt has had worsening back pain for past 2 yrs and now is doing therapy before imaging can be done. Complaining of torn muscle in L shoulder ( pain in forearm). LBP is constant at 4/10 and after walking increases to 9/10. Prior Treatments and Tests X-rays of neck, shoulder, back (03/23/2023): L/S showed Mild degenerative changes and transitional anatomy with lumbarization of the S1 vertebral body. Developmental History Developmental History Herniated LB from tossing 50# bags by self for 2 days in a twisting motion, resulting in his becoming disabled. Treatment Goals Patient/Caregiver Goals Pt goals: Decrease the LBP. Be able to walk around without ending up screaming in pain . Pain level after walking is 9/10. HEP. 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 Current Functional Impairments (Reported) Functional Limitations- ADL's On disability for 15 years. Independent but slow with ADLs . Personal Factors Other Personal Factors That May Effect Dizziness if stands up to fast Therapy/Recovery and when looking up, depression not controlled by meds, his belief that he has a recent L shoulder muscle tear , chronic back & neck pain, Diabetes II, PT-OP-C Subjective Start: 06/15/23 19:09 Freq: Status: Active Protocol: Document 07/30/23 14:32 SP (Rec: 07/30/23 15:38 SP [id number]) OP-PT Subjective Patient Comments Patient Comments Pt reports felt ok after last tx. He reported thinks the new KTC and Lateral hip stretch on RLE caused more pain and unable to walk on R leg Tues, Wed was fine but didn't do the new stretches. He is going to call [facility] and see if can see hime sooner than end Apr. Had MRI, awaiting Drs call on results. Unable to pull up with LUE dueto bicep issue so tried do best using RUE only with LLE. PT-OP-H Neuro Start: 06/15/23 19:09 Freq: Status: Active Protocol: Document 06/19/23 13:01 LRN (Rec: 06/19/23 13:51 LRN [id number]) Sensation Evaluation Gross Sensation Gross Sensation WNL Deep Tendon Reflex & Clonus Assessment Deep Tendon Reflex Right Achilles Deep Tendon Reflex 1+ Diminished Left Achilles Deep Tendon Reflex 2+ Normal Bilateral Patellar Deep Tendon Reflex 2+ Normal PT-OP-J Posture/Palpation/Skin Start: 06/15/23 19:09 Freq: Status: Active Protocol: Document 06/19/23 13:01 LRN (Rec: 06/19/23 13:51 LRN [id number]) Posture Evaluation Position Standing Head/C-Spine Posture Forward Head Pelvis Posture Anteriorly Tilted Weight Distribution Weight Shifted Left Hip Posture (L) Externally Rotated,(R) Externally Rotated Comments Posture Comments Reverse curvature of upper T/S and increased curvature of lower T/S, C-curve of spine with apex on left at ~T8-T9. Palpation Assessment Location L UT Palpation Location L UT Palpation Findings Soft Tissue Tightness Anterior hips Palpation Location ASIS's and lateral groin ( reported in area of repaired hernia) Palpation Findings Tenderness Low Back Palpation Location R QL and across entire LB at sacral level Palpation Findings Muscle Guarding,Tenderness PT-OP-K Range of Motion Start: 06/15/23 19:09 Freq: Status: Active Protocol: Document 06/19/23 13:01 LRN (Rec: 06/19/23 13:51 LRN [id number]) Lumbar Spine Range of Motion Lumbar Spine Active Degrees Testing Position Standing Flexion 50 Extension 3 Rotation Left 10 Rotation Right 20 Lateral Flexion Left 5 Lateral Flexion Right 3 ROM Limitations Pain Comments Trunk AROM: Flexion is 15 deg ?s with 10 deg?s hip flexion, Trunk extension is 3 deg?s with 0 deg?s hip extension. Hip Goniometric Range of Motion Hip Right Passive Hip ROM WFL No Testing Position Supine Flexion w/Knee Flexed 50 Straight Leg Raise 40 Internal Rotation 10 External Rotation 20 Comments Hip flex PROM achieved moving slowly into the motion. Left Passive Hip ROM WFL No Testing Position Supine Flexion w/Knee Flexed 90 Straight Leg Raise 55 Internal Rotation 0 External Rotation 40 Comments Hip flex PROM achieved moving slowly into the motion. PT-OP-L Special Tests Start: 06/15/23 19:09 Freq: Status: Active Protocol: Document 06/19/23 13:01 LRN (Rec: 06/19/23 13:51 LRN [id number]) Special Tests Lumbar Spine Special Tests Solis Test Results + bilaterally Straight Leg Raise Test Results + bilaterally Comments 40 deg's right, 55 deg's left Slump Test Results + for joe lower leg pain onset Comments + LE neural tension Vertical Spine Loading Test Results negative, no pain in LB elicited PT-OP-M Strength Start: 06/15/23 19:09 Freq: Status: Active Protocol: Document 06/19/23 13:01 LRN (Rec: 06/19/23 13:51 LRN [id number]) Hip Strength Hip Manual Muscle Testing Right External Rotation 4+ Good+ Internal Rotation 3 Fair Left External Rotation 4+ Good+ Internal Rotation 4- Good- PT-OP-Q Treatments Start: 06/15/23 19:09 Freq: Status: Active Protocol: Document 07/30/23 14:32 SP (Rec: 07/30/23 15:38 SP [id number]) Therapeutic Exercises Supine Exercises elongated LE stretch Supine Exercise Name trialed back/hip stretch Side left Reps/Minutes 20 SH x2 Comments neutral ankle, good back/hip stretch Fig 4 stretch Supine Exercise Name Fig 4 stretch Side bilateral Resistance L foot over R thigh, R foot inner L gillis Reps/Minutes 30 SH Comments No support needed under thigh, improved tolerance to stretch BKFO Supine Exercise Name Joe BKFO strengthening Side bilateral Equipment Used L1 TB> L2 aqua band Reps/Minutes x15 each resistance, 2nd set L2 Comments good hip abd and TA effort, pnfree lateral hip stretch Supine Exercise Name Lateral Hip stretch Side left Resistance R painful so stopped on R. Equipment Used opp LE straight Reps/Minutes 60 SH, assisted stretch Comments good gentle lat hip stretch pnfree, better SL BKFO stretch Supine Exercise Name SL BKFO stretch Side bilateral Reps/Minutes 20 SH each LE Comments more limited R KFO due to anterior R hip discomfort Hip AD stretch Supine Exercise Name SL Hip Adductor stretch (opp knee flexed) Side bilateral Reps/Minutes 20 SH x 2, asst'd stretch initially then able self Comments R hip adductor stretch Solis stretch Supine Exercise Name R prox stretch, R upper groin. Equipment Used thigh supported a little Reps/Minutes 60 sec hold Comments good response light stretch Sidelying Exercises TA semi-sidelye Sidelying Exercise Name TA tightening semi-sidelye Side bilateral Reps/Minutes 3 breaths x8 reps before tirng Comments Cued slow 30-50% engagement allow breath, improved contraction tasking Sitting Exercises SL hip AD stretch Sitting Exercise Name SL Hip AD stretch- unable get stretch sit, ok standing Equipment Used rail support- standing Reps/Minutes 60 SH x 1 each Comments Cued to not hold breath, back straight- little uncomfortable on back Hip IR strengthening Sitting Exercise Name Hip IR AROM Side bilateral Reps/Minutes 10x Comments Cuing to exhale with feet lift out and inhale on return in Manual Therapy Treatment Soft Tissue Mobilization Illiopsoas approximation Body Location R Iliopsoas: L/S and femoral Mobilization Type Sustained Pressure Intensity/Depth Moderate Comments Mild relaxation. Improve AAROM KTC stretch afterwards. Cues for best breathing practice with sit<>stand reduces R anterior hip pain. Hip flexors Body Location R RF at ASIS & TFL Mobilization Type Strumming Intensity/Depth Moderate Body Position Supine Comments No pain with passive KTC stretch afterwards for 2 reps, then return to pain. PT-OP-T Assessment and Plan Start: 06/15/23 19:09 Freq: Status: Active Protocol: Document 07/30/23 14:32 SP (Rec: 07/30/23 15:38 SP [id number]) Physical Therapy Assessment Goals Three Impairment LBP constant at 4/10, after walking 9/10 Short Term Goal (STG) Pt will be educated in use of cryotherapy and heat for self care pain management. 07/16/23: Discussed/educated pt in use of cryotherapy or MH for pain manageement, but pt stated he had tried both and neither were helpful. 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 Pain level after walking is 9/10. LTG Duration 9 visits - 08/28/23 Two Impairment Decreased trunk and hip mobility causing LBP. Impairment Trunk AROM standing (in deg's) : Flex 50; ext 3; rot 10 L, 20 R; SB 5 L, 3 R. Hip PROM supine (in deg's): ER 40 L, 20 R; IR 0 L, 10 R; SLR 55 L, 40 R; KTC (moving slowly into flexion) 90 L, 50 R Short Term Goal (STG) Improve hip IR mobility to 10- 15 deg's. STG Duration 4 visits-07/13/23 Half-Way Goal (LTG) Improve hip mobility to decrease LBP. LTG Duration 9 visits - 08/28/23 One Impairment Pt lacks appropriate self care HEP Short Term Goal (STG) Pt will be educated in log roll transfer if he is lying supine in bed to sleep, and educated in hip hinging for sit<>stand transfers. 07/02/23: Pt educated in log roll transfer and hip hinging for sit<>stand with less back pain. STG Duration 3 visits - 07/06/23 (: MET GOAL) Half-Way Goal (LTG) Pt will be educated in HEP of LB and hip ROM and strengthening exercises. 07/16/23: HEP: Fig 4, Lateral hip and KTC stretch ( using towel to lift leg to avoid Ilipsoas contraction. 07/23/23: HEP Stretches: Sup Joe BKFO, Hamstring/LE neural , SL hip AD; HEP Strengthening: Sup TA/BKFO, TA/heel slides, and Sitting hip IR. 07/30/23: modified fig 4 R LE foot gillis on L LE. LTG Duration 9 visits - 08/28/23 progressed 07/30/23. Assessment Summary Assessment Pt improved TA engagement this tx with holds and use breath. Pt improved hip ER fig 4 on R with foot adjustment at gillis. Pt does not tolerated R hip lateral stretch, ed not perform on R as demonstrated in PT so discussed not perform on R. Pt pnfree and good tiring effort AROM /c occasional cues breath exhale IR/inhale return to neutral. Trialed elongation LE with neutral spine PPT/TA for decreased anterior hip tension before Fig 4 with good results. Will assess if elongation still ok before add to HEP. Physical Therapy Plan Frequency and Duration Frequency of Treatment 2x/Week Duration of treatment (weeks) 10 Plan of Care Start Date 06/19/23 Plan of Care End Date 08/28/23 Therapeutic Interventions Therapeutic Interventions Home Exercise Program,Joint Mobilizations,Manual Therapy, Neuromuscular Re-education, Patient/Caregiver Education, Self-Care/Home Management,Soft Tissue Mobilization, Therapeutic Activities, Therapeutic Exercises Modalities Cold Pack/Ice Massage,Electric Stimulation,Hot Packs Next Visit Focus/Plan Next Note Type Treatment Note Next Visit Plan (Caution: R shoulder possible ms tear.) DC to a HEP in 2 visits, due to financial reasons (insurance limits). Next: review HEP & progress TA tightening in semi-sidelye, fig 4, hip IR. Review issued HEP: stretches of Hamstring/ LE n glide, & strengthening of Hip (IR/ER/ext), TA BKFO & TA heel slides strengthening. Add: sitting trunk (ext) strengthening, and standing hip AB ROM, that he can tolerate, cont core stabilization with addition of 4pt TA tightening if tolerated. Possibly try retro stepping. THER EX: T/S mob to minimize his reverse curvature (reverse curvature of upper T/S, increased curvature of lower T /S) and improve lower T/S positioning, Lumbar and pelvic mobility to decrease lordosis and anterior Pelvic tilt, and core stab. EDUCATION: Nighttime positioning, body mechanics training, posture training in sit and stand. STM of low back/hips. STM: T /S mob. POC: LBP Rehab for DC to HEP.
--- NOTE | 2023-08-06 14:34 | PT.OTN ---
Current Diagnoses Stiffness of unspecified hip, not elsewhere classified (07/30/23) Low back pain, unspecified (07/30/23) Abnormal posture (07/30/23) Physical Therapy Treatment Note PT-OP-A Visit Information Start: 06/15/23 19:09 Freq: Status: Active Protocol: Document 08/06/23 14:32 SP (Rec: 08/06/23 14:54 SP [id number]) Out-Patient Physical Therapy Visit Information Visit Information Visit Type Cancellation Visit Note Cancellation appt 08/06/23 upon arrival save visit for PT and if need add another after see Dr Walker appt, if so will need add for more insurance approval. 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 He sees Dr Walker in next week or so for update on his MRI and if need consider surgery, recommending continue PT would then need ask for more visits. Wants to leave 1 PT appt to see if need update POC to continue. He reports PT not helping, still having pain after tx and knows not doing anything strenuous. Status: Active Protocol: Document 08/06/23 14:32 SP (Rec: 08/06/23 14:54 SP [id number]) Physical Therapy Plan Next Visit Focus/Plan Next Note Type Discharge Summary Next Visit Plan (Caution: R shoulder possible ms tear.) DC ? to a HEP in next visit, due to financial reasons (insurance limits). Sees Dr Walker after next PT appt. POC: Review issued HEP: stretches, including Hamstring /LE n glide, & strengthening of Hip (IR/ER/ext), TA BKFO & TA heel slides strengthening. Add: sitting trunk (ext) strengthening, and standing hip AB ROM, that he can tolerate, cont core stabilization with addition of 4pt TA tightening if tolerated. Possibly try retro stepping. THER EX: T/S mob to minimize his reverse curvature (reverse curvature of upper T/S, increased curvature of lower T /S) and improve lower T/S positioning, Lumbar and pelvic mobility to decrease lordosis and anterior Pelvic tilt, and core stab. EDUCATION: Nighttime positioning, body mechanics training, posture training in sit and stand. STM of low back/hips. STM: T /S mob. POC: LBP Rehab for DC to HEP.
--- NOTE | 2023-08-13 15:30 | PT.OTN ---
Addendum entered and electronically signed by Marleen Arroyo, PT 08/13/23 15:33: VIKKI score is 23. Original Note: Current Diagnoses Stiffness of unspecified hip, not elsewhere classified (08/13/23) Low back pain, unspecified (08/13/23) Abnormal posture (08/13/23) Physical Therapy Treatment Note PT-OP-A Visit Information Start: 06/15/23 19:09 Freq: Status: Active Protocol: Document 08/13/23 14:33 LRN (Rec: 08/13/23 15:30 LRN [id number]) Out-Patient Physical Therapy Visit Information Visit Information Visit Type Discharge Summary Visit Start Time 14:33 Visit Stop Time 15:13 Visit Number 8/9 Number of TRANSITION MGR RN Visits 1 Evaluation Information Evaluation Date 06/19/23 Precautions Precautions Diabetes II, Dizziness if stands up to fast and when looking up, depression not controlled by meds, chronic back & neck pain. PT-OP-B Current Condition Start: 06/15/23 19:09 Freq: Status: Active Protocol: Document 06/19/23 13:01 LRN (Rec: 06/19/23 13:51 LRN [id number]) Current Condition History of Current Condition Onset Date 2 yrs ago Current Complaints Extreme low back pain with walking, dull constant pain. History of Current Condition Pt has had worsening back pain for past 2 yrs and now is doing therapy before imaging can be done. Complaining of torn muscle in L shoulder ( pain in forearm). LBP is constant at 4/10 and after walking increases to 9/10. Prior Treatments and Tests X-rays of neck, shoulder, back (03/23/2023): L/S showed Mild degenerative changes and transitional anatomy with lumbarization of the S1 vertebral body. Developmental History Developmental History Herniated LB from tossing 50# bags by self for 2 days in a twisting motion, resulting in his becoming disabled. Treatment Goals Patient/Caregiver Goals Pt goals: Decrease the LBP. Be able to walk around without ending up screaming in pain . Pain level after walking is 9/10. HEP. 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 Current Functional Impairments (Reported) Functional Limitations- ADL's On disability for 15 years. Independent but slow with ADLs . Personal Factors Other Personal Factors That May Effect Dizziness if stands up to fast Therapy/Recovery and when looking up, depression not controlled by meds, his belief that he has a recent L shoulder muscle tear , chronic back & neck pain, Diabetes II, PT-OP-C Subjective Start: 06/15/23 19:09 Freq: Status: Active Protocol: Document 08/13/23 14:33 LRN (Rec: 08/13/23 15:30 LRN [id number]) OP-PT Subjective Patient Comments Patient Comments States the ex's helps the back but causes pain everywhere else. States he sees Dr. Walker this Sun. States he walked in his boots for 2-3 blocks and back but didn't have any back pain. States his shoulder therapy has been good, but the insurance company didn't allow more therapy. No pain coming into therapy. Pain after lyins down is 3-4/10. Sun ( last night) no pain, Sat night pain was 8/10. Now intermittent LBP, during the normal day pain is 2-4/10, pain walking is 9/10. PT-OP-H Neuro Start: 06/15/23 19:09 Freq: Status: Active Protocol: Document 06/19/23 13:01 LRN (Rec: 06/19/23 13:51 LRN [id number]) Sensation Evaluation Gross Sensation Gross Sensation WNL Deep Tendon Reflex & Clonus Assessment Deep Tendon Reflex Right Achilles Deep Tendon Reflex 1+ Diminished Left Achilles Deep Tendon Reflex 2+ Normal Bilateral Patellar Deep Tendon Reflex 2+ Normal PT-OP-J Posture/Palpation/Skin Start: 06/15/23 19:09 Freq: Status: Active Protocol: Document 06/19/23 13:01 LRN (Rec: 06/19/23 13:51 LRN [id number]) Posture Evaluation Position Standing Head/C-Spine Posture Forward Head Pelvis Posture Anteriorly Tilted Weight Distribution Weight Shifted Left Hip Posture (L) Externally Rotated,(R) Externally Rotated Comments Posture Comments Reverse curvature of upper T/S and increased curvature of lower T/S, C-curve of spine with apex on left at ~T8-T9. Palpation Assessment Location L UT Palpation Location L UT Palpation Findings Soft Tissue Tightness Anterior hips Palpation Location ASIS's and lateral groin ( reported in area of repaired hernia) Palpation Findings Tenderness Low Back Palpation Location R QL and across entire LB at sacral level Palpation Findings Muscle Guarding,Tenderness PT-OP-K Range of Motion Start: 06/15/23 19:09 Freq: Status: Active Protocol: Document 08/13/23 14:33 LRN (Rec: 08/13/23 15:30 LRN [id number]) Lumbar Spine Range of Motion Lumbar Spine Active Degrees Testing Position Standing Flexion 80 Extension 12 Rotation Left 10 Rotation Right 15 Lateral Flexion Left 12 Lateral Flexion Right 10 ROM Limitations Pain Hip Goniometric Range of Motion Hip Right Passive Testing Position Supine Flexion w/Knee Flexed 96 Internal Rotation 5 External Rotation 45 Left Passive Testing Position Supine Flexion w/Knee Flexed 103 Internal Rotation 3 External Rotation 50 PT-OP-L Special Tests Start: 06/15/23 19:09 Freq: Status: Active Protocol: Document 06/19/23 13:01 LRN (Rec: 06/19/23 13:51 LRN [id number]) Special Tests Lumbar Spine Special Tests Solis Test Results + bilaterally Straight Leg Raise Test Results + bilaterally Comments 40 deg's right, 55 deg's left Slump Test Results + for aditya lower leg pain onset Comments + LE neural tension Vertical Spine Loading Test Results negative, no pain in LB elicited PT-OP-M Strength Start: 06/15/23 19:09 Freq: Status: Active Protocol: Document 06/19/23 13:01 LRN (Rec: 06/19/23 13:51 LRN [id number]) Hip Strength Hip Manual Muscle Testing Right External Rotation 4+ Good+ Internal Rotation 3 Fair Left External Rotation 4+ Good+ Internal Rotation 4- Good- PT-OP-Q Treatments Start: 06/15/23 19:09 Freq: Status: Active Protocol: Document 08/13/23 14:33 LRN (Rec: 08/13/23 15:30 LRN [id number]) Therapeutic Exercises Supine Exercises Aditya Hip stretching Supine Exercise Name Flex, IR, ER stretch Side bilateral Reps/Minutes 2x Comments PROM taken elongated LE stretch Supine Exercise Name Supine lying stretch Side left Reps/Minutes 20 SH x2 Comments neutral ankle, good back/hip stretch TA/BKFO Supine Exercise Name Verbal review lateral hip stretch Supine Exercise Name Quick V. review as to if painful SL BKFO stretch Supine Exercise Name Quick V. review as to if painful Hip AD stretch Supine Exercise Name Quick V. review as to if painful Sitting Exercises Hip IR strengthening Sitting Exercise Name Verbal review Standing Exercises Trunk AROM Standing Exercise Name Trunk AROM for flex, ext, SB, rot Side bilateral Reps/Minutes 10' PT-OP-T Assessment and Plan Start: 06/15/23 19:09 Freq: Status: Active Protocol: Document 08/13/23 14:33 LRN (Rec: 08/13/23 15:30 LRN [id number]) Physical Therapy Assessment Goals Three Impairment LBP constant at 4/10, after walking 9/10 Short Term Goal (STG) Pt will be educated in use of cryotherapy and heat for self care pain management. 07/16/23: Discussed/educated pt in use of cryotherapy or MH for pain manageement, but pt stated he had tried both and neither were helpful. STG Duration 2 visit-06/29/23 (07/16/23: MET GOAL, pt choosing to do neither) Utilities And Maintenance Supervisor Goal (LTG) Be able to walk around without ending up screaming in pain . Pain level after walking is 9/10. Intermittent LBP, during the normal day pain is 2-4/10, pain walking is 9/10. LTG Duration 9 visits - 08/28/23 (: Partially met goal) Two Impairment Decreased trunk and hip mobility causing LBP. Impairment Trunk AROM standing (in deg's) : Flex 50; ext 3; rot 10 L, 20 R; SB 5 L, 3 R. Hip PROM supine (in deg's): ER 40 L, 20 R; IR 0 L, 10 R; SLR 55 L, 40 R; KTC (moving slowly into flexion) 90 L, 50 R Short Term Goal (STG) Improve hip IR mobility to 10- 15 deg's. 08/13/23: Flex (KTC): MET GOAL. L 90 deg's, R 96 deg's. IR: NOT MET GOAL. L 3 deg's, R 5 deg's. ER: MET GOAL: L 50 deg's, R 45 deg's. STG Duration 4 visits-07/13/23 (08/13/23: NOT MET GOAL, improved slightly) Utilities And Maintenance Supervisor Goal (LTG) Improve hip mobility to decrease LBP. 08/13/23: Hip mobility improved, decrease in constant LBP to intermittent LBP. LTG Duration 9 visits - 08/28/23 (08/13/23 : MET GOAL) One Impairment Pt lacks appropriate self care HEP Short Term Goal (STG) Pt will be educated in log roll transfer if he is lying supine in bed to sleep, and educated in hip hinging for sit<>stand transfers. 07/02/23: Pt educated in log roll transfer and hip hinging for sit<>stand with less back pain. STG Duration 3 visits - 07/06/23 (: MET GOAL) Utilities And Maintenance Supervisor Goal (LTG) Pt will be educated in HEP of LB and hip ROM and strengthening exercises. 07/16/23: HEP: Fig 4, Lateral hip and KTC stretch ( using towel to lift leg to avoid Ilipsoas contraction. 07/23/23: HEP Stretches: Sup Aditya BKFO, Hamstring/LE neural , SL hip AD; HEP Strengthening: Sup TA/BKFO, TA/heel slides, and Sitting hip IR. 07/30/23: modified fig 4 R LE foot gillis on L LE. 08/13/23: HEP: Trunk Rot (L> R) AAROM and AROM. LTG Duration 9 visits - 08/28/23 (08/13/23 : MET GOAL) Assessment Summary Assessment Pt is a 53 yo male with extremely limited hip and trunk mobility and probably mechanical changes in the low back resulting in LBP. The pt has made improvement in his bilateral hip mobility although he is still extremely limited with hip IR and general with other motions. He is also limited in trunk mobility, but shows improved mobility with reducation of pain from constant to intermittent. With walking his pain increases to a large degree with pain rated 9/10. He is comfortable today at rest, rating her LBP 1/10. The pt is able to walk with high ankle boots without onset of LBP; therefore the boots must be giving him good ankle support. The pt is on a HEP of mostly mobility ex's, but has some low level core/hip strengthening exercises. The pt would benefit in the future for core stabilization/hip strengthening, but he admits he has to wait until the new year when his insurance allows him more PT visits. Physical Therapy Plan Discharge Physical Therapy Discharge Reasons Patient Request Discharge Comments Pt feels the hip exercises makes his hip hurt worse and understands he is limited by insurance coverage due to financially he is not able to pay for therapy w/o insurance. Pt is suprised he has improved in hip mobility and pain is no longer consistant. Thank you for your referral.
== END 2023-08-16 08:06 | disposition home or self-care (01) ==
LOC: PHYS 14:30
PROVIDERS: Family Provider Family Medicine; PCP Family Medicine; Referring Provider Family Medicine; Visit Provider Family Medicine
DX: M54.50 Low back pain, unspecified (principal); M25.659 Stiffness of unspecified hip, not elsewhere classified; R29.3 Abnormal posture
CPT/HCPCS: 97110; 97140; 97162

== ENCOUNTER 2023-09-17 19:27 | Emergency (ER) | payer OTHER, MEDICAID, SELFPAY ==
[2023-09-17 19:48] VITALS: BP 146/80; PULSE 114; RESP 20; TEMP 37.2; O2SAT 96; BMI 35.4
[2023-09-17 20:37] LABS: Influenza A - CEPHEID Flu A NEGATIVE (NEGATIVE); Influenza B - CEPHEID Flu B NEGATIVE (NEGATIVE); Respiratory Syncytial Virus Negative (Negative)
[2023-09-17 20:39] LABS: COVID-19 CEPHEID 4-PLEX PCR Negative (Negative)
--- NOTE | 2023-09-17 20:56 | ED_ITS ---
HPI - URI/Sore Throat General Chief Complaint: Upper Respiratory Symptoms Stated Complaint: Cough since Sunday Time Seen by Provider: 09/17/23 19:56 Source: patient Mode of arrival: Ambulatory History of Present Illness HPI Narrative: 53-year-old male presents by private vehicle from home for ?I have a very bad cold?. Reports nasal congestion, sore throat, nonproductive cough. Has been taking NyQuil with minimal relief. Patient states that the cough is the most concerning aspect since he has had walking pneumonia in the past. Reports a temperature of 105 at home, however he was afebrile here. No medications taken prior to arrival. Related Data Home Medications Medication Instructions Recorded Confirmed flash glucose sensor (FreeStyle #1 ea 11/29/20 08/16/23 Amie 2 Sensor kit) atorvastatin 40 mg tablet 40 mg PO DAILY 12/11/22 08/16/23 losartan 100 mg tablet 100 mg PO DAILY 12/11/22 08/16/23 metformin 1,000 mg tablet 1,000 mg PO BID 12/11/22 08/16/23 insulin aspart U-100 100 unit/mL See Rx Instructions .Route .COMPLEX 03/28/23 08/16/23 (3 mL) subcutaneous pen (Novolog FlexPen U-100 Insulin aspart) pen needle, diabetic 31 gauge x #1,200 ea 03/28/23 08/16/23 5/16 (BD Ultra-Fine Short Pen Needle) tirzepatide 12.5 mg/0.5 mL mg SUBCUT 08/16/23 08/16/23 subcutaneous pen injector (Sandhya) Previous Rx's Medication Instructions Recorded duloxetine 60 mg capsule,delayed 60 mg PO DAILY #30 caps 05/21/23 release gabapentin 800 mg tablet 1,200 mg (1.5 x 800 mg) PO 3XD 06/29/23 #135 tabs meloxicam 7.5 mg tablet 7.5 mg PO DAILY #30 tabs 07/23/23 hydrocodone 7.5 mg-acetaminophen 1 tab PO Q6H PRN pain #112 tabs 08/14/23 325 mg tablet cyclobenzaprine 10 mg tablet 10 mg PO BID PRN muscle spasm #60 08/22/23 tabs hydrocodone-homatropine 5 mg-1.5 5 ml PO Q6H PRN cough #100 mL 09/17/23 mg/5 mL (5 mL) oral syrup Allergies Allergy/AdvReac Type Severity Reaction Status Date / Time lisinopril AdvReac Severe cough Verified 08/16/23 15:46 oxycodone AdvReac Severe Rage Verified 08/16/23 15:46 Review of Systems Review of Systems Narrative: See HPI Patient History Medical History Lumbar radiculopathy Uncomplicated opioid dependence Shoulder pain (2010) Hx of tendinitis (~2016) Chronic pain syndrome (Unknown) Carpal tunnel syndrome (Unknown) Uncomplicated opioid dependence (03/06/17) Primary insomnia (03/13/16) Type 2 diabetes mellitus without complication, without long-term current use of insulin (12/15/15) Chronic right shoulder pain Neuropathic pain Surgical History Hx of hernia repair (2005) History of hernia repair (06/07/17) Family History Brother Age: 55 Diabetes mellitus Father Essential hypertension Leukemia Mother Alive and well Other Primary insomnia Social History household members: family and friend(s) Smoking Status: Never smoker alcohol intake: current substance use type: does not use Smoking Status: Never smoker alcohol intake frequency: holidays/special occasions only Substance Use Type: does not use Exam Initial Vital Signs Initial Vital Signs: Vital Signs Temperature 98.9 F 09/17/23 19:48 Pulse Rate 114 H 09/17/23 19:48 Respiratory Rate 20 09/17/23 19:48 Blood Pressure 146/80 H 09/17/23 19:48 Pulse Oximetry 96 09/17/23 19:48 Oxygen Delivery Method Room Air 09/17/23 19:48 Const: Awake, alert, appears chronically unwell Cardiac: regular rate, regular rhythm RESP: Coughing with deep inspiration, no obvious rales or rhonchi Skin: Warm, Dry, intact, no rashes Neuro: AO x3, CN II-XII grossly intact, moves all extremities Course Orders Ordered: ED Orders 09/17/23 19:52 Covid-19 + FLU A/B + RSV - PCR Stat 09/17/23 20:55 Chest [XR chest 2V] Stat Discontinued Medications Albuterol/Ipratropium (Albuterol/Ipratropium 3 Ml Ampul) 3 ml INH NOW ONE Stop: 09/17/23 21:46 Last Admin: 09/17/23 22:25 Dose: 3 ml Documented By: ELAYNE Benzonatate (Benzonatate 100 Mg Capsule) 200 mg PO NOW ONE Stop: 09/17/23 20:56 Last Admin: 09/17/23 21:22 Dose: 200 mg Documented By: LILLIAN Ketorolac Tromethamine (Ketorolac 30 Mg/Ml Vial) 30 mg IM NOW ONE Stop: 09/17/23 20:56 Last Admin: 09/17/23 21:22 Dose: 30 mg Documented By: LILLIAN Vital Signs Vital signs: Vital Signs - 8 hr 09/17/23 19:48 09/17/23 22:43 Temperature 98.9 F Pulse Rate 114 H 99 H Respiratory Rate 20 18 Blood Pressure 146/80 H 141/74 H Pulse Oximetry 96 97 Oxygen Delivery Method Room Air Room Air MDM - URI/Sore Throat Differential Diagnosis Differential diagnosis: Likely upper respiratory infection, croup and otitis media Lab Data Labs: Lab Results 09/17/23 Range/Units 19:52 SARS-CoV-2 (PCR) Negative (Negative) Influenza A (RT-PCR) Flu a negative (NEGATIVE) Influenza B (RT-PCR) Flu b negative (NEGATIVE) RSV (PCR) Negative (Negative) Imaging Data Chest x-ray: Radiologist's Impression: PROCEDURE: XR CHEST 2V INDICATIONS: COUGH, HIGH FEVER X 4 DAYS TECHNIQUE: 2 views of the chest were acquired. COMPARISON: [facility], , XR CHEST 1V, 12/14/2022, 12:15. [facility], , XR CHEST 1V, 12/10/2022, 21:15. FINDINGS: Surgical changes and devices: None. Lungs and pleura: Lungs are clear. No pleural effusions or pneumothorax. Mediastinum: Mediastinal contours are normal. Heart size is normal. Bones and chest wall: No suspicious bony abnormalities. Soft tissues appear unremarkable. IMPRESSION: No acute cardiopulmonary abnormality is seen. Dictated by: Jesse Dominguez M.D. on 09/17/2023 at 21:40 Approved by: Jesse Dominguez M.D. on 09/17/2023 at 21:41 [facility] Narrative Medical decision making narrative: Chronically unwell appearing but not acutely toxic patient presenting for upper respiratory infection. Pulmonary exam difficult due to patient coughing, however no obvious infiltrates to auscultation. Saturating well on room air. Reports fever at home, but is afebrile here. Patient negative for flu, COVID, RSV. Two-view chest x-ray negative for acute cardiopulmonary process. Patient given a nebulizer treatment with no change in his symptoms. Given Toradol and Tessalon Perles for cough. Patient counseled on lab and imaging findings, recommended continued conservative treatment and supportive care with Tylenol, ibuprofen, fluids, and giving his body time to recover. Short course of pain medication sent to pharmacy of choice. Discharge Plan Departure Patient Disposition: Home Clinical Impression: Upper respiratory infection Instructions: DI for Acute Bronchitis Activity Restrictions/Additional Instructions: Your chest x-ray was negative for pneumonia. Take Tylenol and ibuprofen as needed for pain. I recommend medications with the active ingredient pseudoephedrine for congestion. You may also continue to take Mucinex. A course of cough medication has been sent to your pharmacy, be careful with this medication as it appears as though you already are on hydrocodone in his medication also contains hydrocodone. Prescriptions: New hydrocodone-homatropine 5-1.5 mg/5 mL (5 mL) syrup 5 ml PO Q6H PRN (Reason: cough) Qty: 100 0RF No Action (DME) pen needle, diabetic [BD Ultra-Fine Short Pen Needle] 31 gauge x 5/16 needle See Rx Instructions .ROUTE .MEDSUPPLY Qty: 1200 Patient Comments: [NO ORIGINAL SIG] Rx Instructions: As directed duloxetine 60 mg capsule,delayed release(DR/EC) 60 mg PO DAILY Qty: 30 2RF gabapentin 800 mg tablet 1,200 mg PO 3XD Qty: 135 11RF meloxicam 7.5 mg tablet 7.5 mg PO DAILY Qty: 30 5RF hydrocodone-acetaminophen 7.5-325 mg tablet 1 tab PO Q6H MDD 4 tabs PRN (Reason: pain) Qty: 112 0RF cyclobenzaprine 10 mg tablet 10 mg PO BID PRN (Reason: muscle spasm) Qty: 60 5RF (DME) FreeStyle Amie 2 Sensor Kit See Rx Instructions .ROUTE .MEDSUPPLY Qty: 1 Rx Instructions: As directed insulin aspart U-100 [Novolog FlexPen U-100 Insulin] 100 unit/mL (3 mL) insulin pen See Rx Instructions .ROUTE .COMPLEX Rx Instructions: sliding scale 6-10 units before each meal on weekends if needed atorvastatin 40 mg tablet 40 mg PO DAILY metformin 1,000 mg tablet 1,000 mg PO BID losartan 100 mg tablet 100 mg PO DAILY Mounjaro 12.5 mg/0.5 mL pen injector SUBCUT Patient Comments: [NO ORIGINAL SIG] Referrals: Ulysses Meier MD [Primary Care Provider] - Stand Alone Forms: Patient Portal/API
[2023-09-17] MEDS: KETOROLAC 30 MG/ML VIAL IM (21:22)
[2023-09-17] MEDS: BENZONATATE 100 MG CAPSULE 200 MG PO (21:22)
[2023-09-17] MEDS: ALBUTEROL/IPRATROPIUM 3 ML AMPUL INH (22:25)
[2023-09-17 22:43] VITALS: BP 141/74; PULSE 99; RESP 18; O2SAT 97
== END 2023-09-17 22:45 | disposition home or self-care (01) ==
PROVIDERS: Emergency Provider Emergency Medicine; Family Provider Family Medicine; PCP Family Medicine
DX: J06.9 Acute upper respiratory infection, unspecified (principal)
CPT/HCPCS: 87635; 87400 ×2; 87420; 0241U; 71046; 93005; 93010; 96372; 99284; J1885

== ENCOUNTER 2023-10-16 09:15 | Outpatient (CLI) | payer OTHER, MEDICAID, SELFPAY ==
[2023-10-16] VITALS (10 sets, daily range): BP systolic 119–146; BP diastolic 69–91; PULSE 91–101; RESP 13–17; TEMP 36.2; O2SAT 95–99
--- NOTE | 2023-10-16 09:45 | DI.RAD.S_ITS ---
PROCEDURE: PAIN C/T INTERLAMINAR INJECT INDICATIONS: Para Left C6/7 TL SARA COMPARISON: None. FINDINGS: Fluoroscopic spot filming was performed to verify placement of spinal needles at the C6-7 level(s), as labeled on the films. Appropriate location(s) of the needle tip(s) was confirmed by injection of iodinated contrast. IMPRESSION: Fluoroscopic guidance utilized for an epidural injection at C6-7. Dictated by: Shyam Zarate M.D. on 10/16/2023 at 11:54 Approved by: Shyam Zarate M.D. on 10/16/2023 at 11:55
[2023-10-16] MEDS: MIDAZOLAM 2 MG/2 ML VIAL IV (09:57)
[2023-10-16] MEDS: BUPIVACAINE 0.25% (PF) VIAL 2 ML INJ (10:04)
[2023-10-16] MEDS: iopamidoL 15 ML VIAL 3 ML INJ (10:04)
[2023-10-16] MEDS: DEXAMETHASONE 10 MG/ML VIAL 20 MG INJ (10:04)
--- NOTE | 2023-10-16 10:15 | P.PCN_ITS ---
Date/Time/Diagnoses Date of procedure: 10/16/23 Time of procedure: 10:15 Pre-procedure diagnosis: 1. CERVICAL STENOSIS, 2. CERVICAL HNP WITH UPPER EXTREMITY RADICULAR FEATURES Post-procedure diagnosis: same Procedure Notes Procedure: 1. FLUORSCOPICALLY GUIDED CONTRAST CONTROLLED INTERLAMINAR EPIDURAL STEROID INJECTION - C6/7 TL SARA Indications: José is referred by Dr. Meier for treatment of Cervical HNP with Upper Extremity Paresthesias. Physician: Eric Walker Total Fluoroscopy time (seconds): 26 Total sedation minutes: 14 Complications: none Procedure in detail & Post-procedure care: FINDINGS Cervical Stenosis due to disc deterioration and nerve root irritation and nerve root irritation DESCRIPTION OF PROCEDURE Fluoroscopically guided, contrast-controlled C6/7 translaminar epidural steroid injection with conscious sedation. Following review of allergy and review of potential side effects and complications, including, but not necessarily limited to, infection, allergic reaction, local tissue breakdown, temporary as well as permanent nerve injury, stroke, paralysis, and possible , the patient indicated that patient understood and agreed to proceed. An informed consent document was signed by the patient, witnessed by a nurse, and placed in the patient's chart. Additionally, other treatment options including modalities, medications, and physical therapy were reviewed with the patient. After review of previous anaesthesic history and IV conscious sedation the patient was deemed safe to proceed with today?s procedure with IV conscious sedation as ASA class II designation. Safety time-out was performed to confirm patient ID, procedure to be performed and site of procedure. IV sedation was accomplished with a combination of 2mg of Versed administered by the RN after DO order, titrated to patient comfort during the course of the procedure while the patient remained responsive to all verbal commands. In the prone position, following sterile prep and drape of the cervical region, the C6/7 translaminar space was identified fluoroscopically. The skin was anesthetized via a 25-gauge 1.5-inch needle with 1% lidocaine solution. At this point, a 25-gauge, 2.5-inch short bevel spinal needle was atraumatically introduced and advanced under fluoroscopic guidance into epidural space at the C6/7 translaminar space. Depth was confirmed on lateral view. Radiological data, including multiple fluoroscopic views of the cervical spine, reveal a spinal needle at the C6/7 translaminar space. Lateral views then show placement of the needle in the epidural space. Subsequent views show contrast material flowing superiorly and inferiorly in the epidural space. DSA fluoroscopy with live contrast injection, once again, confirmed no vascular or intrathecal uptake. At this point, using loss of resistance technique with saline and air, the epidural space was entered. Following negative aspiration, injection of approximately 1.5 cc of Isovue-200 with live fluoroscopy in the AP view confirmed epidural flow in the epidural space without vascular or intrathecal uptake observed. Subsequently, a test dose of 1 cc of 1% lidocaine solution was injected and patient was observed for two minutes without signs or symptoms of complications, including abdominal pain, shortness of breath, bilateral upper or lower extremity weakness, nausea and vomiting, prior to steroid injection. At this point, 2cc or 20mg of dexamethasone was then injected without incident. The patient tolerated the procedure well without signs or symptoms of complica tions prior to being transferred to the recovery area for further monitoring, The patient was then transferred to the recovery area where they were observed for an appropriate period of time after the injection. The patient reported a VAS score of 6 prior to the procedure and a post-procedure VAS of 0. POST OP INSTRUCTIONS The patient was provided a Pain Log to continue to record their response to the target-specific procedure prior to follow-up visit with the referring provider. Additionally, specific post-injection care instructions and a contact number to our office were provided if concerns arise regarding possible complications associated with the procedure are suspected.
== END 2023-10-16 10:35 | disposition home or self-care (01) ==
LOC: RAD 09:16
PROVIDERS: Family Provider Family Medicine; PCP Family Medicine; Referring Provider Physical Medicine & Rehabilitation; Visit Provider Physical Medicine & Rehabilitation
DX: M48.02 Spinal stenosis, cervical region (principal); M50.123 Cervical disc disorder at C6-C7 level with radiculopathy
CPT/HCPCS: 62321; 99152; J1100; J2250; J3490

== ENCOUNTER → 2024-02-04 10:56 | Outpatient (CLI) | payer OTHER, MEDICAID, SELFPAY ==
[2024-02-04 13:04] LABS: Add Manual Diff / Slide Review NO; Basophils Absolute Auto 100 /uL (0-100); Eosinophils Absolute Auto 200 /uL (0-450); Hematocrit 46.9 % (41-53); Hemoglobin 15.8 g/dL (13.5-17.5); Lymphocytes Absolute Auto 2100 /uL (1100-4500); Lymphocytes Percent Auto 26.3 % (25-40); Mean Corpuscular HGB Conc 33.7 % (30-36); Mean Corpuscular Hemoglobin 29.1 PG (26-34); Mean Corpuscular Volume 86.3 fL (80-100); Monocytes Absolute Auto 600 /uL (0-900); Monocytes Percent Auto 7.1 % (3-14); Neutrophils Absolute Auto 4900 /uL (1500-7000); Neutrophils Percent Auto 62.6 % (50-75); Platelet Count 436 X10^3/uL (150-400); Red Blood Cell Count 5.43 X10^6/uL (4.5-5.9); White Blood Cell Count 7.9 X10^3/uL (4.5-11.0)
[2024-02-04 13:13] LABS: Hemoglobin A1C% w Est Avg Glu 6.1 % (4.0-6.0)
[2024-02-04 13:14] LABS: BUN Creatinine Ratio 21.5 (6-22); Blood Urea Nitrogen 17 mg/dL (9-20); Calcium 9.4 mg/dL (8.4-10.2); Carbon Dioxide 25 mmol/L (22-32); Chloride 104 mmol/L (98-107); Cholesterol 159 mg/dL (140-199); Estimated Glomerular Filt Rate > 60 mL/min (>60); Glucose 170 mg/dL (70-100); HDL Cholesterol 66 mg/dL (40-60); HEMOLYSIS < 15 (0-50); LDL Cholesterol Calculated 63 mg/dL (<100); Potassium 5.3 mmol/L (3.4-5.1); Sodium 138 mmol/L (137-145); Triglycerides 150 mg/dL (35-150)
[2024-02-04 15:12] LABS: Creatinine Urine Random 125.39 mg/dL
[2024-02-04 15:16] LABS: HIV 1 & 2 Ab/Ag 4th Gen Combo NEGATIVE (NEGATIVE); Hep C Virus Ab w/Reflex Quant NEGATIVE s/c (NEGATIVE)
== END ==
PROVIDERS: Family Provider Family Medicine; PCP Family Medicine; Referring Provider Family Medicine; Visit Provider Family Medicine
DX: E11.9 Type 2 diabetes mellitus without complications (principal); I10 Essential (primary) hypertension; E78.5 Hyperlipidemia, unspecified; F11.20 Opioid dependence, uncomplicated
CPT/HCPCS: 36415; 80048; 80061; 82043; 82570; 83036; 85025; 86803; 87389

== ENCOUNTER → 2024-07-11 13:09 | Outpatient (CLI) | payer OTHER, SELFPAY ==
[2024-07-11 14:54] LABS: Hematocrit 45.3 % (41-53); Hemoglobin 15.4 g/dL (13.5-17.5); Mean Corpuscular HGB Conc 33.9 % (30-36); Mean Corpuscular Hemoglobin 29.9 PG (26-34); Mean Corpuscular Volume 88.3 fL (80-100); Platelet Count 423 X10^3/uL (150-400); Red Blood Cell Count 5.13 X10^6/uL (4.5-5.9); Red Cell Distribution Width 13.2 % (11.6-14.8); White Blood Cell Count 9.3 X10^3/uL (4.5-11.0)
[2024-07-11 15:22] LABS: Alanine Aminotransferase 26 IU/L (<50); Albumin 4.5 g/dL (3.5-5.0); Alkaline Phosphatase 82 U/L (38-126); Aspartate Aminotransferase 28 IU/L (17-59); Bilirubin Total 1.8 mg/dL (0.2-1.3); Blood Urea Nitrogen 26 mg/dL (9-20); Calcium 10.3 mg/dL (8.4-10.2); Carbon Dioxide 25 mmol/L (22-32); Chloride 102 mmol/L (98-107); Cholesterol 132 mg/dL (140-199); Estimated Glomerular Filt Rate > 60 mL/min (>60); Globulin 2.3 g/dL (1.7-4.1); Glucose 142 mg/dL (70-100); HDL Cholesterol 42 mg/dL (40-60); HEMOLYSIS < 15 (0-50); LDL Cholesterol Calculated 51 mg/dL (<100); Sodium 141 mmol/L (137-145); Total Protein 6.8 g/dL (6.3-8.2); Triglycerides 195 mg/dL (35-150)
[2024-07-11 15:23] LABS: Potassium 5.4 mmol/L (3.4-5.1)
[2024-07-11 15:34] LABS: Hemoglobin A1C% w Est Avg Glu 6.6 % (4.0-6.0)
== END ==
PROVIDERS: Family Provider Family Medicine; PCP Family Medicine; Referring Provider Family Medicine; Visit Provider Family Medicine
DX: E11.9 Type 2 diabetes mellitus without complications (principal); I10 Essential (primary) hypertension; E78.5 Hyperlipidemia, unspecified
CPT/HCPCS: 36415; 80053; 80061; 83036; 85027

== ENCOUNTER → 2024-09-22 12:06 | Outpatient (CLI) | payer OTHER, SELFPAY ==
--- NOTE | 2024-09-22 12:34 | DI.MRI.S_ITS ---
PROCEDURE: MR SHOULDER LT WO CON INDICATIONS: PAIN TECHNIQUE: Noncontrast oblique coronal T2 fast spin echo with fat saturation, oblique sagittal T1 spin echo and T2 fast spin echo with fat saturation, axial T1 spin echo and T2 fast spin echo with fat saturation through the shoulder. COMPARISON: [facility], CR, XR SHOULDER 2+ VIEWS LEFT, 07/23/2024, 16:19. [facility], MR, MR SHOULDER RT WO CON, 02/19/2019, 16:14. FINDINGS: Image quality: Excellent. Rotator cuff: There is full-thickness tear at the footprint of the junction supraspinatus and the infraspinatus. No tendon retraction of the supraspinatus. The teres minor is unremarkable. Subscapularis is unremarkable. No muscle edema or fatty atrophy. Bones and bursae: Patient is likely status post subacromial decompression. No significant degenerative changes of the acromioclavicular joint. Type 1 acromion. No os acromiale. Trace subacromial/subdeltoid bursitis. Suture anchor in the lesser tuberosity, likely representing prior biceps tenodesis. The no acute fracture. No focal chondral defect of the glenohumeral articulation. Capsule and soft tissues: Anterior superior labral tear. Posterior labral tear. No paralabral cyst. Low-grade interstitial tear of the extra-articular biceps tendon. The intra-articular biceps tendon is not visualized, favoring postprocedural. Trace glenohumeral effusion. No intra-articular body. IMPRESSION: 1. Patient is likely status post subacromial decompression, and biceps tenodesis. 2. Full-thickness tear at the footprint of the junction of supraspinatus and infraspinatus. 3. Labral tear. No paralabral cyst. 4. Low-grade tear of the extra-articular biceps tendon. Dictated by: Joanne Byrd M.D. on 09/22/2024 at 13:40 Approved by: Joanne Byrd M.D. on 09/22/2024 at 13:52 The
== END ==
PROVIDERS: Family Provider Family Medicine; PCP Family Medicine; Referring Provider Family Medicine; Visit Provider Orthopaedic Surgery
DX: S43.432A Superior glenoid labrum lesion of left shoulder, initial encounter (principal); S46.212A Strain of muscle, fascia and tendon of other parts of biceps, left arm, initial encounter; M75.122 Complete rotator cuff tear or rupture of left shoulder, not specified as traumatic; M75.42 Impingement syndrome of left shoulder; X58.XXXA Exposure to other specified factors, initial encounter
CPT/HCPCS: 73221

== ENCOUNTER → 2025-02-09 14:56 | Outpatient (CLI) | payer OTHER, SELFPAY ==
[2025-02-09 15:33] LABS: Hemoglobin A1C% w Est Avg Glu 6.5 % (4.0-6.0)
[2025-02-09 15:35] LABS: Hematocrit 48.7 % (41-53); Hemoglobin 16.4 g/dL (13.5-17.5); Mean Corpuscular HGB Conc 33.7 % (30-36); Mean Corpuscular Hemoglobin 29.0 PG (26-34); Mean Corpuscular Volume 85.9 fL (80-100); Platelet Count 420 X10^3/uL (150-400)
[2025-02-09 15:43] LABS: Cholesterol 140 mg/dL (140-199); HDL Cholesterol 65 mg/dL (40-60); Triglycerides 146 mg/dL (35-150)
[2025-02-09 15:44] LABS: Albumin 4.4 g/dL (3.5-5.0); Blood Urea Nitrogen 16 mg/dL (9-20); Calcium 9.5 mg/dL (8.4-10.2); Carbon Dioxide 26 mmol/L (22-32); Chloride 103 mmol/L (98-107); Estimated Glomerular Filt Rate > 60 mL/min (>60); Glucose 139 mg/dL (70-99); HEMOLYSIS < 15 (0-50); Phosphorous 3.2 mg/dL (2.5-4.5); Potassium 4.9 mmol/L (3.4-5.1); Sodium 135 mmol/L (137-145)
[2025-02-09 16:02] LABS: Vitamin D 25 Hydroxy (D3) 19.7 ng/mL (30.0-100.0)
[2025-02-09 16:20] LABS: Microalbumi Creatinin Ratio Ur 34.0 ug/mg CR (<30)
[2025-02-11 07:09] LABS: Calcium 9.7 mg/dL (8.7-10.2); Parathyroid Hormone, Intact 71 pg/mL (15-65)
== END ==
PROVIDERS: Family Provider Family Medicine; PCP Family Medicine; Referring Provider Family Medicine; Visit Provider Student in an Organized Health Care Education/Training Program
DX: E11.69 Type 2 diabetes mellitus with other specified complication (principal); M25.519 Pain in unspecified shoulder; S46.212S Strain of muscle, fascia and tendon of other parts of biceps, left arm, sequela; I10 Essential (primary) hypertension; E11.3293 Type 2 diabetes mellitus with mild nonproliferative diabetic retinopathy without macular edema, bilateral
CPT/HCPCS: 36415; 80061; 80069; 82043; 82306; 82310; 82570; 83036; 83970; 85027